=== PATIENT | female | born 2000 | race Caucasian/White ===

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

== ENCOUNTER 2021-05-23 18:54 | Emergency (ER) | payer MEDICAID, SELFPAY ==
[2021-05-23 18:56] VITALS: BP 131/100; PULSE 129; RESP 18; TEMP 38.4; O2SAT 97; BMI 35.9
[2021-05-23 18:59] VITALS: BP 131/100; BP 131/101; PULSE 125; PULSE 129; RESP 18; TEMP 38.4; O2SAT 97
--- NOTE | 2021-05-23 19:23 | EX.ED.DYSGE1 ---
HPI History of Present Illness Chief Complaint: Fever Narrative Narrative: Patient is a 21-year-old female who states she has had about 7 to 10 days of congestion cough and fatigue. She says she is also had bouts of loose stool. She reports a fever has persisted during this time. She states multiple people in her household have similar symptoms. She reports she tested negative for Covid 1 to 2 days after symptoms set in. She states that despite doing [id number] medication she feels like her symptoms are worsening and therefore she presents for evaluation [facility] Medical History no medical history Home Medications acyclovir 400 mg PO TID 06/17/19 [History Last Taken Unknown] benzonatate 100 mg PO TID PRN PRN 06/17/19 [History Last Taken Unknown] bifidobacteri bifid.and longum 460 mg PO DAILY 06/17/19 [History Last Taken Unknown] cefdinir 300 mg PO BID 06/17/19 [History Last Taken Unknown] doxycycline monohydrate 100 mg PO BID #28 cap 06/17/19 [Rx Last Taken Unknown] fluoxetine 20 mg PO DAILY 06/17/19 [History Last Taken Unknown] metronidazole 500 mg PO BID 06/17/19 [History Last Taken Unknown] metronidazole 500 mg PO TID #30 tab 06/17/19 [Rx Last Taken Unknown] albuterol sulfate [Ventolin HFA] 1 - 2 puff INHALATION Q4H PRN PRN #1 device 05/23/21 [Rx Last Taken Unknown] dexamethasone [Decadron] 6 mg PO DAILY #10 tab 05/23/21 [Rx Last Taken Unknown] erythromycin 1 applic LEFT EYE 4X/DAY 5 Days #3.5 g 05/23/21 [Rx Last Taken Unknown] promethazine-codeine 5 ml PO Q6H PRN 7 Days #140 ml 05/23/21 [Rx Last Taken Unknown] Allergy/AdvReac Type Severity Reaction Status Date / Time amoxicillin Allergy Rash Verified 05/23/21 18:56 Penicillins Allergy Rash Verified 05/23/21 18:56 metoclopramide [From Reglan] AdvReac Other Verified 05/23/21 18:56 Social History (Updated 09/09/18 @ 12:26 by Harry GONZALEZ, LISA) Smoking Status: Never smoker [facility] ED Constitutional Constitutional ED: Reports chills and fever(s) ENT ENT ED: Reports rhinorrhea and sore throat Cardiovascular Cardiovascular: Denies chest pain Respiratory/Chest Respiratory/Chest: Reports cough and dyspnea Gastrointestinal Gastrointestinal: Reports diarrhea; Denies abdominal pain, nausea or vomiting Genitourinary Genitourinary ED: Denies dysuria Musculoskeletal Musculoskeletal: Reports myalgias Integumentary Denies rash Neurologic Neurologic: Denies headache(s) Hematologic/Lymphatic Hematologic/Lymphatic: Denies easy bleeding or easy bruising EXAM Physical Exam Const Vital Signs: 05/23/21 18:56 05/23/21 18:59 05/23/21 19:30 Temperature 101.2 F H 101.2 F H Temperature Source Temporal Temporal Pulse Rate 129 H 125 H Respiratory Rate 18 18 Respiratory Pattern Normal Blood Pressure 131/100 H 131/101 H Blood Pressure Mean 110 111 Pulse Ox 97 97 Oxygen Delivery Method Room Air Room Air 05/23/21 22:03 Temperature 99.5 F H Temperature Source Oral Pulse Rate 122 H Respiratory Rate 18 Respiratory Pattern Blood Pressure 118/74 Blood Pressure Mean 88 Pulse Ox 96 Oxygen Delivery Method Room Air Positive well nourished and well developed General Appearance ED: well developed HEENT HEENT Narrative: Nasal mucosa is hyperemic and boggy with enlarged inferior nasal turbinates. There is cobblestoning the posterior pharynx consistent with sinus drainage but no airway edema or compromise Eyes PERRL and EOMs intact bilaterally Neck supple Neck Narrative: Positive anterior cervical lymphadenopathy noted Resp normal respiratory effort and clear to auscultation bilaterally Cardio regular rate and regular rhythm GI non-tender and non-distended GI Narrative: Bowel sounds are hyperactive Palpation: soft Extremity normal to inspection Extremity Narrative: No asymmetric edema no pitting edema negative Homans' sign bilaterally Neuro oriented x3 and CN's II-XII intact bilaterally Sensorium / Orientation: alert Psych mental status grossly normal Skin no rashes or lesions noted MDM MDM MDM Narrative Medical decision making narrative: Patient presented to the ER febrile but otherwise in no acute respiratory distress. Her constellation of symptoms is consistent with Covid's and I feel that her initial negative test was due to being swab too early. Therefore repeat swab was obtained which is positive. Her chest x-ray revealed no infiltrate. On reevaluation she is resting comfortably and not requiring supplemental oxygen is therefore safe for discharge Radiography Diagnostic Testing: Clinical Impression(s) from Imaging Studies Chest X-Ray 05/23/21 20:15 IMPRESSION: Normal x-ray examination of the chest. Electronically Signed: Janes Gruber MD at 20:42 EDT , Service support , Discharge Plan Triage Chief Complaint: Fever ED Provider: Jaylen Duran Dx/Rx/DC Orders Clinical Impression: COVID-19 Instructions: Coronavirus Disease 2019 (COVID-19): Caring for Yourself or Others Prescriptions: New erythromycin 5 mg/gram (0.5 %) ointment 1 applic LEFT EYE 4X/DAY 5 Days Qty: 3.5 RF: 0 dexamethasone [Decadron] 6 mg tablet 6 mg PO DAILY Qty: 10 RF: 0 albuterol sulfate [Ventolin HFA] 90 mcg/actuation HFA aerosol inhaler 1 - 2 puff inhalation Q4H PRN PRN (Reason: Wheezing) Qty: 1 RF: 0 promethazine-codeine 6.25-10 mg/5 mL syrup 5 ml PO Q6H PRN (Reason: cough) 7 Days Qty: 140 RF: 0 No Action fluoxetine 20 MG capsule 20 mg PO DAILY RF: 0 metronidazole 500 MG tablet 500 mg PO BID RF: 0 acyclovir 400 MG tablet 400 mg PO TID RF: 0 benzonatate 100 MG capsule 100 mg PO TID PRN PRN (Reason: Cough) RF: 0 cefdinir 300 MG capsule 300 mg PO BID RF: 0 bifidobacteri bifid.and longum 460 MG capsule 460 mg PO DAILY RF: 0 metronidazole 500 MG tablet 500 mg PO TID Qty: 30 RF: 0 doxycycline monohydrate 100 MG capsule 100 mg PO BID Qty: 28 RF: 0 Primary Care Provider: Care Physician,No Primary Referrals: Mckinley Ng MD [STAFF PHYSICIAN] - 5-7 Days You Larsen MD [STAFF PHYSICIAN] - 3-5 Days if not improving NOT,DEFINED [NON-STAFF] - Disposition Disposition: Home, Self Care
--- NOTE | 2021-05-23 20:15 | RAD_ITS ---
STUDY: X-RAY CHEST REASON FOR EXAM: Female, 21 years old. cough TECHNIQUE: Single AP portable view of the chest. COMPARISON: None. FINDINGS: The lungs are clear and expanded. There is no demonstrated pleural abnormality. Normal size heart. Normal mediastinum and claudette. Normal visualized pulmonary arteries. Normal visualized aortic arch and descending thoracic aorta. Normal visualized thoracic spine. Normal visualized ribs, clavicles, and shoulders. There is no demonstrated abnormality of the visualized soft tissue structures of the upper abdomen. RAD/Chest 1 View (Portable) IMPRESSION: Normal x-ray examination of the chest. Electronically Signed: Janes Gruber MD at 20:42 EDT , Service support ,
[2021-05-23 22:03] VITALS: BP 118/74; PULSE 122; RESP 18; TEMP 37.5; O2SAT 96
[2021-05-23 22:33] VITALS: PULSE 120; RESP 16; O2SAT 97
== END 2021-05-23 22:33 | disposition home or self-care (01) ==
LOC: ED 19:31
PROVIDERS: Emergency Provider Emergency Medicine
DX: U07.1 COVID-19 (principal); Z79.899 Other long term (current) drug therapy
CPT/HCPCS: 71045; 87426; 99282

== ENCOUNTER 2021-09-29 20:44 | Emergency (ER) | payer MEDICAID, SELFPAY ==
[2021-09-29 20:44] VITALS: BP 120/82; PULSE 87; RESP 16; TEMP 36.6; O2SAT 100; BMI 35.9
--- NOTE | 2021-09-29 20:50 | US_ITS ---
STUDY: FIRST TRIMESTER OBSTETRICAL ULTRASOUND REASON FOR EXAM: Female, 21 years old. Abdominal pain with nausea TECHNIQUE: Transvaginal US was obtained to better visualized the ovaries. TECHNICAL QUALITY: Adequate. PRIOR ULTRASOUND: None. FINDINGS: There is visualization of a single gestational sac in a normal intrauterine position. The mean sac diameter (MSD) measures 26 mm, indicating an estimated gestational age (EGA) of 7 weeks, 4 days. The gestational sac shape is within normal limits. There is a visualized yolk sac. The yolk sac measures 4.9 mm. The placenta is non-visualized. Due to early gestation, the placenta is not seen. There is visualization of a live embryo. The crown-rump length (CRL) measures 9 mm, indicating an estimated gestational age (EGA) of 6 weeks, 6 days. There is demonstrated cardiac activity with a heart rate of 144 bpm. The estimated gestation age (EGA) by LMP is 7 weeks, 5 days. The estimated date of delivery (LOC) by LMP is 10.1.22. The estimated gestation age (EGA) by US is 7 weeks, 1 days. The estimated date of delivery (LOC) by US is 10.5.22. The uterus measures 11 x 8.5 cm. There is no demonstrated uterine fibroid. The cervix is closed. The right ovary measures 2.9 x 2 cm. There is no right ovarian cyst. There is no visualized right adnexal mass or complex lesion. The left ovary measures 3.5 x 2.6 cm. 19mm cyst with no follow-up required. There is no visualized left adnexal mass or complex lesion. There is no fluid in the cul de sac. US/Transvaginal w/Preg US IMPRESSION: There is a single live intrauterine with a heart rate of 144 bpm. The estimated gestation age (EGA) by US is 7 weeks, 1 days. The estimated date of delivery (LOC) by US is 10.5.22. Electronically Signed: Avni Santiago MD at 21:53 EST ,
--- NOTE | 2021-09-29 20:56 | EDS_ITS ---
HPI HPI - GI History of Present Illness Chief Complaint: Abd Pain Narrative Narrative: 21-year-old female presenting with abdominal pain. She states initially this is diffuse but then points to the lower abdomen on both sides just above the hips. She states it started at 7 PM. She denies abdominal trauma. Patient states she had three test in August which were positive. She believes her last menstrual period was around [place]. Patient is not have any vaginal bleeding, vaginal discharge, dysuria, hematuria. She denies vomiting but has some mild nausea. She has been able to eat and drink normally. Patient has no diarrhea or constipation. She is not had a fever. She states that currently she is supposed to establish with [facility] but does not have a name. She states that her last her water broke early and she spent most of it in the hospital in [facility]. PFSH PFSH Home Medications acyclovir 400 mg PO TID 06/17/19 [History Last Taken Unknown] benzonatate 100 mg PO TID PRN PRN 06/17/19 [History Last Taken Unknown] bifidobacteri bifid.and longum 460 mg PO DAILY 06/17/19 [History Last Taken Unknown] cefdinir 300 mg PO BID 06/17/19 [History Last Taken Unknown] doxycycline monohydrate 100 mg PO BID #28 cap 06/17/19 [Rx Last Taken Unknown] fluoxetine 20 mg PO DAILY 06/17/19 [History Last Taken Unknown] metronidazole 500 mg PO BID 06/17/19 [History Last Taken Unknown] metronidazole 500 mg PO TID #30 tab 06/17/19 [Rx Last Taken Unknown] albuterol sulfate [Ventolin HFA] 1 - 2 puff INHALATION Q4H PRN PRN #1 device 05/23/21 [Rx Last Taken Unknown] dexamethasone [Decadron] 6 mg PO DAILY #10 tab 05/23/21 [Rx Last Taken Unknown] erythromycin 1 applic LEFT EYE 4X/DAY 5 Days #3.5 g 05/23/21 [Rx Last Taken Unknown] promethazine-codeine 5 ml PO Q6H PRN 7 Days #140 ml 05/23/21 [Rx Last Taken Unknown] promethazine-codeine 5 ml PO Q6H PRN 7 Days #140 ml 05/24/21 [Rx Last Taken Unknown] Allergy/AdvReac Type Severity Reaction Status Date / Time amoxicillin Allergy Rash Verified 09/29/21 20:48 Penicillins Allergy Rash Verified 09/29/21 20:48 metoclopramide [From Reglan] AdvReac Other Verified 09/29/21 20:48 Social History Smoking Status: Never smoker ROS ROS ED Constitutional Constitutional ED: Denies chills or fever(s) ENT ENT ED: Denies rhinorrhea or sore throat Cardiovascular Cardiovascular: Denies chest pain or palpitations Respiratory/Chest Respiratory/Chest: Denies cough or dyspnea Gastrointestinal Gastrointestinal: Reports abdominal pain and nausea; Denies constipation, diarrhea, melena or vomiting Genitourinary Genitourinary ED: Denies dysuria or hematuria Musculoskeletal Musculoskeletal: Denies arthralgias or myalgias Integumentary Denies Abrasions or rash Neurologic Neurologic: Denies headache(s) or weakness Psychiatric Psychiatric: Denies anxiety or depression EXAM Physical Exam Const Vital Signs: 09/29/21 20:44 Temperature 97.9 F Temperature Source Temporal Pulse Rate 87 Respiratory Rate 16 Blood Pressure 120/82 H Blood Pressure Mean 94 Pulse Ox 100 Oxygen Delivery Method Room Air Positive well nourished and obese General Appearance ED: NAD Nutritional Appearance: obese HEENT Reports moist mucous membranes normocephalic and atraumatic Eyes PERRL and EOMs intact bilaterally Resp normal respiratory effort and clear to auscultation bilaterally Cardio regular rate and regular rhythm GI non-distended GI Narrative: Mild tenderness bilaterally at the lower abdomen just above the level of the hips. Abdomen nonperitoneal. Palpation: soft Neuro Sensorium / Orientation: alert, oriented to person, oriented to place and oriented to time Psych mental status grossly normal Skin General Skin Exam: Negative for jaundice MDM MDM MDM Narrative Medical decision making narrative: Patient presenting with positive home test and abdominal pain which she describes as the lower abdomen on both sides. Her abdominal exam is benign. Vital signs are stable and she is afebrile. Patient has not had any vaginal bleeding, urinary complaints, GI complaints. CBC is unremarkable. CMP shows normal liver function, renal function. Potassium is slightly low at 3.2. Urinalysis negative for infection. hCG quant is 54,093. Transvaginal ultrasound shows intrauterine with heart rate at 144 bpm estimated to be 7 weeks 1 day. Patient counseled on all findings I recommended to her that she follow-up with [facility]. She is given the phone number for [facility]. She is counseled only Tylenol for pain. She is discharged home in stable condition. Impression: 1. Pressure menstrual 2. Abdominal pain Lab Data Attestation: I reviewed the patient's lab results. Labs: Laboratory Results - last 24 hr 09/29/21 09/29/21 09/29/21 20:45 21:04 21:04 WBC 10.7 RBC 5.07 Hgb 14.5 Hct 41.4 MCV 81.7 MCH 28.6 MCHC 35.0 RDW Std Deviation 35.8 RDW Coeff of Patricio 12.2 Plt Count 291 MPV 10.8 Immature Gran % (Auto) 0.300 Neut % (Auto) 62.1 Lymph % (Auto) 31.7 Whiteside % (Auto) 5.1 Eos % (Auto) 0.5 Baso % (Auto) 0.3 Absolute Neuts (auto) 6.7 Absolute Lymphs (auto) 3.40 Nucleated RBC % 0 Sodium 136 Potassium 3.2 L Chloride 104 Carbon Dioxide 26.0 Anion Gap 6 BUN 5 L Creatinine 0.65 Estim Creat Clear Calc 103.31 Est GFR (MDRD) Af Amer 148 Est GFR (MDRD) Non-Af 123 BUN/Creatinine Ratio 7.7 L Glucose 89 Calcium 9.0 Total Bilirubin 0.50 AST 12 L ALT 23 Alkaline Phosphatase 56 Total Protein 7.8 Albumin 4.2 Globulin 3.6 Albumin/Globulin Ratio 1.2 Lipase 85 HCG, Quant Urine Color Yellow Urine Clarity Clear Urine pH 5.0 Ur Specific Pollock 1.020 Urine Protein 30 H Urine Glucose (UA) Normal Urine Ketones 15 H Urine Occult Blood Negative Urine Nitrite Negative Urine Bilirubin Negative Urine Urobilinogen Normal Ur Leukocyte Esterase 25 H Urine RBC 0 SEEN Urine WBC 0-5 SEEN Ur Squamous Epith Cells 0-5 SEEN Urine Bacteria RARE Urine Mucus 0 SEEN 09/29/21 21:04 WBC RBC Hgb Hct MCV MCH MCHC RDW Std Deviation RDW Coeff of Patricio Plt Count MPV Immature Gran % (Auto) Neut % (Auto) Lymph % (Auto) Whiteside % (Auto) Eos % (Auto) Baso % (Auto) Absolute Neuts (auto) Absolute Lymphs (auto) Nucleated RBC % Sodium Potassium Chloride Carbon Dioxide Anion Gap BUN Creatinine Estim Creat Clear Calc Est GFR (MDRD) Af Amer Est GFR (MDRD) Non-Af BUN/Creatinine Ratio Glucose Calcium Total Bilirubin AST ALT Alkaline Phosphatase Total Protein Albumin Globulin Albumin/Globulin Ratio Lipase HCG, Quant 50557 H Urine Color Urine Clarity Urine pH Ur Specific Pollock Urine Protein Urine Glucose (UA) Urine Ketones Urine Occult Blood Urine Nitrite Urine Bilirubin Urine Urobilinogen Ur Leukocyte Esterase Urine RBC Urine WBC Ur Squamous Epith Cells Urine Bacteria Urine Mucus Radiography Diagnostic Testing: Clinical Impression(s) from Imaging Studies Obstetrics Ultrasound 09/29/21 20:50 IMPRESSION: There is a single live intrauterine with a heart rate of 144 bpm. The estimated gestation age (EGA) by US is 7 weeks, 1 days. The estimated date of delivery (LOC) by US is 05.17.22. Electronically Signed: Avni Santiago MD at 21:53 EST Reading Location ID and State: [facility] / [place] , Service support , Discharge Plan Triage Chief Complaint: Abd Pain ED Provider: Nahun Mckenna Dx/Rx/DC Orders Instructions: ED Abdominal Pain, Early Prescriptions: No Action fluoxetine 20 MG capsule 20 mg PO DAILY RF: 0 metronidazole 500 MG tablet 500 mg PO BID RF: 0 acyclovir 400 MG tablet 400 mg PO TID RF: 0 benzonatate 100 MG capsule 100 mg PO TID PRN PRN (Reason: Cough) RF: 0 cefdinir 300 MG capsule 300 mg PO BID RF: 0 bifidobacteri bifid.and longum 460 MG capsule 460 mg PO DAILY RF: 0 metronidazole 500 MG tablet 500 mg PO TID Qty: 30 RF: 0 doxycycline monohydrate 100 MG capsule 100 mg PO BID Qty: 28 RF: 0 erythromycin 5 mg/gram (0.5 %) ointment 1 applic LEFT EYE 4X/DAY 5 Days Qty: 3.5 RF: 0 dexamethasone [Decadron] 6 mg tablet 6 mg PO DAILY Qty: 10 RF: 0 albuterol sulfate [Ventolin HFA] 90 mcg/actuation HFA aerosol inhaler 1 - 2 puff inhalation Q4H PRN PRN (Reason: Wheezing) Qty: 1 RF: 0 promethazine-codeine 6.25-10 mg/5 mL syrup 5 ml PO Q6H PRN (Reason: cough) 7 Days Qty: 140 RF: 0 promethazine-codeine 6.25-10 mg/5 mL syrup 5 ml PO Q6H PRN (Reason: cough) 7 Days Qty: 140 RF: 0 Primary Care Provider: Care Physician,No Primary Referrals: Casi Das MD [STAFF PHYSICIAN] - As Needed Care Physician,No Primary [Primary Care Provider] - Disposition Disposition: Home, Self Care
[2021-09-29 20:59] LABS: Mucous, Urine 0 SEEN /hpf (<or=2+); Red Blood Cells-Urine 0 SEEN /hpf (0-5)
[2021-09-29 21:02] LABS: Color, Urine Yellow (Yellow); Glucose, Dipstick Normal (Normal); Ketone-Dipstick 15 mg/dl (Negative); Leukocyte Esterase-Dipstick 25 /ul (Negative); Nitrite-Dipstick Negative (Negative); Occult Blood-Urine Negative /ul (Negative); Protein-Dipstick 30 mg/dl (Negative); Urine Bilirubin Dipstick Negative (Negative); Urine Clarity Clear (Clear); Urine Urobilinogen Normal (Normal)
[2021-09-29 21:14] LABS: Absolute Neutrophil Count 6.7 X10^3/uL (2.0-7.7); Basophil# 0.03 X10^3/uL; Basophil% 0.3 % (0-1); Eosinophil# 0.05 X10^3/uL; Eosinophils% 0.5 % (0-5); Hematocrit 41.4 % (37-47); Hemoglobin 14.5 g/dL (12.0-15.0); Lymphocyte % 31.7 % (19-41); Mean Corpuscular Hgb 28.6 pg (27.0-32.0); Mean Corpuscular Volume 81.7 fL (81-99); Mean Platelet Vol. 10.8 fl (6.2-12.0); Monocyte# 0.55 X10^3/uL; Monocyte% 5.1 % (0-10); NRBC Flagged by Analyzer 0 % (0-5); Neutrophil # 6.68 X10^3/uL (2.7-7.7); Neutrophil % 62.1 % (47-70); Platelet Count 291 K/mm3 (150-450); RBC Distribution Width CV 12.2 % (11.6-14.6); RBC Distribution Width SD 35.8 fl (35.1-43.9); Red Blood Count 5.07 M/mm3 (4.2-5.4); White Blood Count 10.7 K/mm3 (4.4-11.0)
[2021-09-29 21:39] LABS: Bacteria RARE /hpf (None Seen); Squamous Epithelial Cells - UA 0-5 SEEN /hpf (5-10); White Blood Cells 0-5 SEEN /hpf (0-5)
[2021-09-29 21:50] LABS: ALB/GLOB Ratio 1.2 RATIO (0.9-2.4); AST(SGOT) 12 U/L (15-37); Alanine Aminotransfer ALT/SGPT 23 U/L (13-56); Albumin, Serum 4.2 g/dL (3.2-5.0); Alkaline Phosphatase 56 U/L (45-117); Anion Gap 6 (5-15); BUN 5 mg/dL (7-18); BUN/Creat Ratio 7.7 RATIO (10-20); Chloride 104 mmol/L (98-107); Creatinine, Serum 0.65 mg/dL (0.55-1.02); EST Glomerular Filtration Rate 123 mL/min (>60); Est Glom Filt Rate - Afr Amer 148 mL/min (>60); Estimated Creatinine Clearance 103.31 ml/min; Globulin 3.6 g/dL (2.2-4.2); Glucose 89 mg/dL (74-106); Lipase 85 U/L (73-393); Potassium 3.2 mmol/L (3.5-5.1); Protein, Total 7.8 g/dL (6.4-8.2); Sodium Level 136 mmol/L (136-145)
== END 2021-09-29 22:39 | disposition home or self-care (01) ==
PROVIDERS: Emergency Provider Student in an Organized Health Care Education/Training Program; Visit Provider Student in an Organized Health Care Education/Training Program
DX: O99.891 Other specified diseases and conditions complicating pregnancy (principal); R10.32 Left lower quadrant pain; R10.31 Right lower quadrant pain; R11.0 Nausea; Z79.899 Other long term (current) drug therapy; Z3A.01 Less than 8 weeks gestation of pregnancy
CPT/HCPCS: 76817; 80053; 81001; 83690; 84702; 85025; 99283; A4216

== ENCOUNTER 2022-06-08 13:51 | Emergency (ER) | payer MEDICAID, SELFPAY ==
[2022-06-08 13:52] VITALS: BP 115/77; PULSE 150; RESP 14; TEMP 37.6; O2SAT 96; BMI 35.5
--- NOTE | 2022-06-08 14:11 | EDS_ITS ---
HPI History of Present Illness Chief Complaint: General Illness Informant: patient Narrative Narrative: 22-year-old female presenting to the emergency room with a chief complaint of fever. Several members of her household have also developed fever. She notes headache and sore throat with some ear pressure. No vomiting or diarrhea. No rash. Patient denies any photophobia. [facility] PFS Medical History no medical history Home Medications acyclovir 400 mg tablet 400 mg PO TID 06/17/19 [History Last Taken Unknown] benzonatate 100 mg capsule 100 mg PO TID PRN PRN Cough 06/17/19 [History Last Taken Unknown] bifidobacterium bifidum and longum 460 mg (9-1 billion cell) capsule 460 mg PO DAILY 06/17/19 [History Last Taken Unknown] cefdinir 300 mg capsule 300 mg PO BID 06/17/19 [History Last Taken Unknown] doxycycline monohydrate 100 mg capsule 100 mg PO BID #28 caps 06/17/19 [Rx Last Taken Unknown] fluoxetine 20 mg capsule 20 mg PO DAILY 06/17/19 [History Last Taken Unknown] metronidazole 500 mg tablet 500 mg PO BID 06/17/19 [History Last Taken Unknown] metronidazole 500 mg tablet 500 mg PO TID #30 tabs 06/17/19 [Rx Last Taken Unknown] albuterol sulfate 90 mcg/actuation aerosol inhaler (Ventolin HFA) 1 - 2 puff inhalation Q4H PRN PRN Wheezing #1 device 05/23/21 [Rx Last Taken Unknown] dexamethasone 6 mg tablet (Decadron) 6 mg PO DAILY #10 tabs 05/23/21 [Rx Last Taken Unknown] erythromycin 5 mg/gram (0.5 %) eye ointment 1 applic LEFT EYE 4X/DAY 5 days #3.5 grams 05/23/21 [Rx Last Taken Unknown] promethazine 6.25 mg-codeine 10 mg/5 mL syrup 5 ml PO Q6H PRN cough 7 days #140 mL 05/23/21 [Rx Last Taken Unknown] promethazine 6.25 mg-codeine 10 mg/5 mL syrup 5 ml PO Q6H PRN cough 7 days #140 mL 05/24/21 [Rx Last Taken Unknown] Allergy/AdvReac Type Severity Reaction Status Date / Time amoxicillin Allergy Rash Verified 06/08/22 13:52 Penicillins Allergy Rash Verified 06/08/22 13:52 metoclopramide [From Reglan] AdvReac Other Verified 06/08/22 13:52 Social History (Updated 06/08/22 @ 14:[address] Ashu Fields, DO) Smoking Status: Never smoker substance use type: does not use ROS ROS ED Constitutional Constitutional ED: Reports fever(s); Denies chills or weight loss Eyes Eyes: Denies change in vision or diplopia ENT ENT ED: Reports sore throat; Denies ear pain or rhinorrhea Cardiovascular Cardiovascular: Denies chest pain, orthopnea, palpitations or racing heartbeat Respiratory/Chest Respiratory/Chest: Reports cough; Denies dyspnea or orthopnea Gastrointestinal Gastrointestinal: Denies abdominal pain, diarrhea, nausea or vomiting Genitourinary Genitourinary ED: Denies dysuria, hematuria or urinary frequency Musculoskeletal Musculoskeletal: Denies arthralgias or myalgias Integumentary Denies abscess or rash Neurologic Neurologic: Reports headache(s); Denies weakness Psychiatric Psychiatric: Denies anxiety, depression, suicidal ideation or suicidal thoughts Endocrine Endocrinology: Denies polydipsia, polyphagia or polyuria Allergic/Immunologic Allergic/Immunologic ED: Denies mouth swelling, tongue swelling or urticaria EXAM Physical Exam Const Vital Signs: 06/08/22 13:52 06/08/22 14:48 06/08/22 14:49 Temperature 99.7 F H Temperature Source Temporal Pulse Rate 150 H 138 H Respiratory Rate 14 18 Respiratory Effort Normal Respiratory Pattern Normal Blood Pressure 115/77 Blood Pressure Mean 89 Pulse Ox 96 98 Oxygen Delivery Method Room Air Room Air Positive well nourished and well developed General Appearance ED: well developed HEENT Reports normocephalic, head/scalp atraumatic and moist mucous membranes Eyes PERRL and EOMs intact bilaterally Neck no lymphadenopathy, supple and no JVD Resp normal respiratory effort and clear to auscultation bilaterally Cardio regular rate, regular rhythm and no murmurs GI normal to inspection, nondistended, normoactive bowel sounds and non-tender Palpation: soft Back/Spine no CVA tenderness and normal ROM Extremity normal to inspection General Extremety ED: Negative for edema General Extremity: Negative for edema Neuro oriented x3 and CN's II-XII intact bilaterally Sensorium / Orientation: alert Motor Exam: strength 5/5 throughout Psych mental status grossly normal Mood & Affect: Negative for depressed or tearful Skin no rashes or lesions noted and no wounds MDM MDM MDM Narrative Medical decision making narrative: The patient's COVID RSV and influenza are negative. Clinically she appears quite well I think she can be discharged home with supportive care. Patient to return if worsening or concerns Discharge Plan Triage Chief Complaint: General Illness ED Provider: Ashu Fields Dx/Rx/DC Orders Clinical Impression: Acute febrile illness, Acute viral syndrome Instructions: ED Viral Syndrome (Adult) Prescriptions: No Action fluoxetine 20 MG capsule 20 mg PO DAILY metronidazole 500 MG tablet 500 mg PO BID acyclovir 400 MG tablet 400 mg PO TID benzonatate 100 MG capsule 100 mg PO TID PRN PRN (Reason: Cough) cefdinir 300 MG capsule 300 mg PO BID bifidobacteri bifid.and longum 460 MG capsule 460 mg PO DAILY metronidazole 500 MG tablet 500 mg PO TID Qty: 30 0RF doxycycline monohydrate 100 MG capsule 100 mg PO BID Qty: 28 0RF erythromycin 5 mg/gram (0.5 %) ointment 1 applic LEFT EYE 4X/DAY 5 Days Qty: 3.5 0RF dexamethasone [Decadron] 6 mg tablet 6 mg PO DAILY Qty: 10 0RF albuterol sulfate [Ventolin HFA] 90 mcg/actuation HFA aerosol inhaler 1 - 2 puff inhalation Q4H PRN PRN (Reason: Wheezing) Qty: 1 0RF promethazine-codeine 6.25-10 mg/5 mL syrup 5 ml PO Q6H PRN (Reason: cough) 7 Days Qty: 140 0RF promethazine-codeine 6.25-10 mg/5 mL syrup 5 ml PO Q6H PRN (Reason: cough) 7 Days Qty: 140 0RF Primary Care Provider: Care Physician,No Primary Referrals: Sheyla Fairchild MD [Med Staff - Medical Office Receptionist] - As Needed (for primary care) Care Physician,No Primary [Primary Care Provider] - Disposition Disposition: Home, Self Care
[2022-06-08] MEDS: Ibuprofen 400 MG Tablet 800 MG PO (14:46)
[2022-06-08 14:48] VITALS: PULSE 138; RESP 18; O2SAT 98
[2022-06-08 16:11] VITALS: BP 100/71; PULSE 116; RESP 18; O2SAT 98
[2022-06-08 16:15] VITALS: TEMP 37.7
== END 2022-06-08 16:17 | disposition home or self-care (01) ==
PROVIDERS: Emergency Provider Emergency Medicine; Visit Provider Emergency Medicine
DX: B34.9 Viral infection, unspecified (principal); Z20.822 Contact with and (suspected) exposure to COVID-19; R50.9 Fever, unspecified; J02.9 Acute pharyngitis, unspecified; R05.9 Cough, unspecified; R51.9 Headache, unspecified; Z79.899 Other long term (current) drug therapy
CPT/HCPCS: 87428; 87807; 99283

== ENCOUNTER 2022-08-03 10:43 | Day surgery (SDC) | payer MEDICAID, SELFPAY ==
--- NOTE | 2022-08-02 11:51 | PCM.HP.BLA ---
History and Physical Date of Admission: 08/03/22 Pre-Op History and Physical ? HPI: The patient is a 22 year old female presenting for sterilization consultation. Has three children does not desire further children. Declines LARC. ? pre-operative visit. She is scheduled for laparoscopic bilateral salpingectomy, for desires sterilization on 08/03/22. Procedure discussed along with risks, benefits and complications. Other alternatives discussed for management. Consent form signed? Yes. ? ? PAST MEDICAL HISTORY PAST MEDICAL HISTORY Diagnosis Date ? 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 H/O sickle cell trait ? ? father has trait ? Herpes simplex virus (HSV) infection 2019 ? none current per patient ? History of anxiety ? ? History of depression ? ? ? PAST SURGICAL HISTORY PAST SURGICAL HISTORY Procedure Laterality Date ? REMOVAL GALLBLADDER ? 12/20/2016 ? ? ? CURRENT MEDICATIONS Current Outpatient Medications Medication Sig Dispense Refill ? acetaminophen (TYLENOL) 325 mg tablet Take 2 tablets by mouth every 6 hours as needed for pain. 60 tablet 0 ? docusate sodium (COLACE) 100 mg capsule Take 1 capsule by mouth twice daily as needed for constipation. 30 capsule 0 ? ibuprofen (MOTRIN) 600 mg tablet Take 1 tablet by mouth every 6 hours as needed for pain. 60 tablet 0 ? Breast Pump Use as directed 1 Each 0 ? PNV no.95/ferrous fum/folic ac ( ORAL) Take by mouth. ? ? ? No current facility-administered medications for this visit. ? ? ALLERGIES: Vancomycin, Amoxicillin, and Metoclopramide ? PERSONAL HISTORY: SOCIAL HISTORY Social History ? Tobacco Use ? Smoking status: Never ? Smokeless tobacco: Never Vaping Use ? Vaping Use: Never used Substance Use Topics ? Alcohol use: No ? Drug use: No ? FAMILY HISTORY: FAMILY HISTORY FAMILY HISTORY Problem Relation Age of Onset ? Alcohol/Drug Mother ? ? other (Mental disorder unspecific) Mother ? ? other (ADHD) Sister ? ? other (ADHD) Brother ? ? ? REVIEW OF SYMPTOMS: negative except as noted above PHYSICAL EXAMINATION: ? VITALS: Blood pressure 118/72, weight 196 lb (88.9 kg), not currently . ? GENERAL: The patient is well nourished, well hydrated in no acute distress. , The patient is oriented to time, place, and person. NECK: full range of motion ? ? IMPRESSION: 22yo desires sterilization ? PLAN: Laparoscopic bilateral salpingectomy ? Pt has been counseled on risks/benefits and alternatives of surgery including but not limited to anesthesia, bleeding, infection, injury to pelvic structures including bowel, bladder, ureters and vessels. Pt wishes to proceed with surgery at this time. Pt understands this is permanent- declines LARC. Risk of regret reviewed. Title 19 previously signed. Pre and post op instructions reviewed ? I have reviewed and updated past medical and surgical history, medications and allergies Casi Navarro MD Office Visit on 07/19/2022 Office Visit on 07/19/2022 Note shared with patient
[2022-08-03] VITALS (7 sets, daily range): BP systolic 89–106; BP diastolic 52–71; PULSE 55–72; RESP 16; TEMP 36.1–36.8; O2SAT 95–100; BMI 36.6
--- NOTE | 2022-08-03 | FALS_PTH ---
PATIENT: RAYMOND WOO LOC: [facility] [place] U#:[id number] AGE/SX: 22/ ROOM: RE08/03/[address]: Dr. Casi Das, MDDOB: 2000 BED: DIS: 08/03/2022 SPEC #: [id number] RECD: 08/03/22 13:55 STATUS: CALDERON HECTOR #: [id number] GARRET: 08/03/22 00:[address]: Casi Das DEPT: SURGICAL PATHOLOGY RECD BY: Kenny Renteria ENTERED: 08/03/22 13:56 SP TYPE: FALL TUBES OTHR DR: No Primary Care Phys Tissues: Fallopian tube Procedures: Surgery Specimen Level II HEADER OPERATION: Laparoscopic salpingectomy PRE-OP DIAGNOSIS: Sterilization TISSUE SUBMITTED: Bilateral fallopian tubes MICROSCOPIC DIAGNOSIS Bilateral fallopian tubes, salpingectomy: Bilateral fallopian tubes, no pathologic diagnosis. SJ:shasta 08/04/2022 MICROSCOPIC DESCRIPTION Slides are reviewed. GROSS DESCRIPTION Received in fixative is one container labeled with the patient's name and designated bilateral fallopian tubes. The specimen consists of bilateral fallopian tubes including fimbrial ends. One fallopian tube measures 6.5 cm in length and 0.7 cm in diameter. The second fallopian tube is received in multiple pieces. The largest piece measures 4.5 cm in length and 0.5 cm in diameter. The other three pieces which contain the fimbrial end measures in aggregate 3 x 2 x 0.5 cm. The fallopian tubes are not identified as right or left. Flavorer sections are submitted in two cassettes as follows: 1 - intact fallopian tube, 2 - fallopian tube received in multiple pieces. / JANICE:shasta 08/03/2022 TC:4 [facility]: [id number] x2
[2022-08-03] MEDS: Lactated Ringers 1,000 ML 15 ML IV (11:19)
[2022-08-03 11:26] LABS: Hematocrit 37.3 % (37-47); Hemoglobin 12.7 g/dL (12.0-15.0); Mean Corpuscular Hgb 28.2 pg (27.0-32.0); Mean Corpuscular Volume 82.7 fL (81-99); Mean Platelet Vol. 11.1 fl (6.2-12.0); Platelet Count 262 K/mm3 (150-450); RBC Distribution Width SD 45.7 fl (35.1-43.9); Red Blood Count 4.51 M/mm3 (4.2-5.4); White Blood Count 6.6 K/mm3 (4.4-11.0)
[2022-08-03 11:30] LABS: Internal QC Validated? YES +Cl - CLEAR BKGD; Pregnancy, Urine Negative Negative
--- NOTE | 2022-08-03 11:36 | DCINST_ITS ---
Discharge Instructions Procedure Other Diet Discharge Diet: No restrictions Activity May resume sexual activity in: 2 weeks Lifting Restrictions: 20-25 lbs Dressing / Incision Call your doctor if your incision/area has: Continuous Slow Oozing, Sudden Increased Bleeding, Increased Pain/ Swelling, Increased Redness, Foul Smelling Discharge and Swelling at the incision site Call your doctor if you observe: Fever of 101 or Higher, Inability to urinate, Inability to have a bowel movement, Using more than 1 pad per hour and Uncontrolled pain Additional Dressing/Incision Instructions:: You have skin glue over your incision sites, do not pick off. You may shower and let the soap and water run over the incision sites and dab dry. Follow Up Care Please Follow Up With: Casi Das MD When: 1-2 weeks post OP if you need an appointment please call [phone] Test Results: Test results from this visit will be discussed in further detail at your follow- up appointment, if applicable. Discharge Plan Admission Attending Provider: Casi Das Primary Care Provider: Care Physician,Meliza Primary Discharge Orders/Prescriptions Prescriptions: No Action NK Referrals / Follow Up: Care Physician,No Primary [Primary Care Provider] - Disposition Disposition (needs filled in before D/C Order can be placed): Home, Self Care
--- NOTE | 2022-08-03 11:37 | PCM.OPRPT ---
Report of Operation Date of Procedure: 08/03/22 Pre-Operative Diagnosis: desires sterilization Post-Operative Diagnosis: same Surgery/Procedure Performed:: Laparoscopic bilateral salpingectomy Description of Surgical Findings:: normal tubes and ovaries bilaterally. Uterus normal. Surgeon: Casi Das slubber machine operator: None Type of Anesthesia: General and Local Special Medications: 0.5% marcaine Specimen's removed: bilateral fallopian tubes Drains: none Estimated Blood Loss (mL): <5cc Fluids Replaced: 300 Description of Procedure: After informed consent was obtained patient was taken to the operating room she was placed in supine position she was given anesthesia. She was then placed in the [facility] stirru and she was prepped and draped in normal sterile fashion. Bladder was drained prior to the start of procedure. At this time attention was turned to the vaginal portion where weighted speculum placed at posterior fornix vagina single-tooth tenaculum was used to gently grasp the internal the cervix. uterus was gently sounded to approximately 8 cm. Uterine manipulator was placed without difficulty. Legs then placed in parallel with the abdomen the tenaculum and the weighted speculum were removed. 2 towel clamps were placed at level of umbilicus. Marcaine was injected infraumbilical and a small incision was made. The 5 mm trocar was placed under direct visualization. CO2 gas was used to insufflate the intra-abdominal cavity. Upon inspection no gross abnormalities appreciated- the uterus tubes and ovaries appeared to be normal. At this time then the LLQ and RLQ ports were placed First Marcaine was injected and small incision was made a knife and the 5 mm trocars were placed. At this time then tubes were traced back to the fimbriated ends. Enseal was used to coagulate and ligate along mesosalpinx bilaterally until tubes removed completely. Good hemostasis was appreciated. At this time procedure was deemed complete successful. The gas was desufflated on from the intra-abdominal cavity. The trochars were removed. Skin was closed using 4-0 Monocryl in a subcutaneous fashion. Dermabond glue was placed. Instrument lap and needle counts were correct ?2. The uterine manipulator was removed. Vaginal sweep was performed it was negative. There were no complications anticipated normal postoperative course for this patient. Grafts/Implants Used: none Procedure Start Time: 11:55 Procedure Stop Time: 12:11 Complications none Admit VTE Documentation VTE Present on Admission: Yes VTE Mechan Device Prophylaxis: SCD's VTE Pharm Prophylaxis ordered?: No Reason prophylaxis not ordered:: Procedure Not Indicated
[2022-08-03] MEDS: Bupivacaine Mpf 0.5% 30 ML VIAL (12:00)
[2022-08-03] MEDS: HYDROcodone Bitartrate/Apap 5/325 Tablet PO (13:21)
== END 2022-08-03 14:45 | disposition home or self-care (01) ==
LOC: SDC 10:45 → AC 10:45
PROVIDERS: Anesthesiology; Referring Provider Obstetrics & Gynecology; Visit Provider Obstetrics & Gynecology
PROC: (CPT 58661; principal; 2022-08-03 12:15)
DX: Z30.2 Encounter for sterilization (principal)
CPT/HCPCS: 58661; 00840; 81025; 85027; 88302; J7120; C1760; J2405

== ENCOUNTER 2022-10-01 16:27 | Emergency (ER) | payer MEDICAID, SELFPAY ==
[2022-10-01 16:28] VITALS: BP 136/76; PULSE 97; RESP 16; TEMP 36.1; O2SAT 100; BMI 37.8
[2022-10-01 16:42] VITALS: BP 106/73; BP 110/67; BP 117/72; PULSE 92
--- NOTE | 2022-10-01 16:58 | EX.ED.DYSGE1 ---
HPI History of Present Illness Chief Complaint: Syncope Informant: patient Onset/Context/Timing Onset: Today Context: Sudden Onset Timing: Intermittent Quality: Lightheaded Location: Head Worsened by: Sitting and standing quickly Relieved by: Resting Narrative Narrative: Presents with near syncopal episode that occurred today. Patient states she felt lightheaded. Patient states she felt like she was going to pass out. Patient states she blacked out for couple seconds but did not actually lose consciousness. Patient states the symptoms have been intermittent and only last few minutes. Patient states it is worse when she sits and stands too quickly. Patient states it is better when she rests. Patient admits to some paresthesias of her lower extremities where she feels tingling down both lower extremities. Patient denies any weakness. Patient denies any headaches. PFSH PFSH Medical History Non-smoker Home Medications NK 07/27/22 [History Last Taken Unknown] Allergy/AdvReac Type Severity Reaction Status Date / Time amoxicillin Allergy Rash Verified 10/01/22 16:41 Penicillins Allergy Rash Verified 10/01/22 16:41 vancomycin Allergy Rash Verified 10/01/22 16:41 metoclopramide [From Reglan] AdvReac Other Verified 10/01/22 16:41 Surgical History History of laparoscopic cholecystectomy Social History Smoking Status: Never smoker substance use type: does not use ROS ROS ED Constitutional Constitutional ED: Denies chills or fever(s) Eyes Eyes: Denies blurry vision or change in vision ENT ENT ED: Denies rhinorrhea or sore throat Cardiovascular Cardiovascular: Denies chest pain or palpitations Respiratory/Chest Respiratory/Chest: Denies cough or dyspnea Gastrointestinal Gastrointestinal: Denies nausea or vomiting Genitourinary Genitourinary ED: Denies dysuria or hematuria Musculoskeletal Musculoskeletal: Denies back pain or neck pain Integumentary Denies abscess or rash Neurologic Neurologic: Reports headache(s) and paresthesias RLE and LLE; Denies weakness Allergic/Immunologic Allergic/Immunologic ED: Denies mouth swelling or urticaria EXAM Physical Exam Const Vital Signs: 10/01/22 16:28 10/01/22 16:42 Temperature 97.0 F L Temperature Source Temporal Pulse Rate 97 Pulse Rate [Lying] 92 Pulse Rate [Sitting (for 1 minute prior to obtaining)] 92 Respiratory Rate 16 Blood Pressure 136/76 H Blood Pressure [Lying] 110/67 Blood Pressure [Sitting (for 1 minute prior to obtaining)] 117/72 Blood Pressure [Standing (for 1 minute prior to obtaining)] 106/73 Blood Pressure Mean 96 Blood Pressure Mean [Lying] 81 Blood Pressure Mean [Sitting (for 1 minute prior to obtaining)] 87 Blood Pressure Mean [Standing (for 1 minute prior to obtaining)] 84 Pulse Ox 100 Oxygen Delivery Method Room Air Positive well nourished and well developed General Appearance ED: well developed HEENT Reports moist mucous membranes Neck supple and no JVD Resp normal respiratory effort and clear to auscultation bilaterally Cardio regular rate, regular rhythm and no murmurs GI normal to inspection, nondistended, normoactive bowel sounds and non-tender Palpation: soft Extremity normal to inspection General Extremety ED: Negative for edema or tenderness General Extremity: Negative for edema Neuro oriented x3, CN's II-XII intact bilaterally and no sensory deficits noted Sensorium / Orientation: alert Motor Exam: strength 5/5 throughout Psych mental status grossly normal Skin no rashes or lesions noted MDM MDM MDM Narrative Medical decision making narrative: Differential diagnosis includes cardiac dysrhythmia, cardiac ischemia, ectopic , urinary tract infection, pneumonia, and intracranial bleeding. CT scan of the brain will be obtained to assess for intracranial bleeding. Urinalysis will be obtained to assess for urinary tract infection. EKG will be obtained to assess for cardiac ischemia and cardiac dysrhythmia. CBC will be obtained to assess for anemia and leukocytosis. Basic metabolic profile will be obtained to assess for electrolyte abnormality and renal function. Serum hCG will be obtained to assess for . Lab Data Attestation: I reviewed the patient's lab results. Lab results narrative: CBC was reviewed and was within normal limits. Basic metabolic profile was reviewed and was within normal limits. Serum hCG was reviewed and was negative. Urinalysis was reviewed. There is no evidence of urinary tract infection or hematuria. COVID-19 rapid antigen was reviewed and was negative. Influenza A and influenza B antigens were reviewed and were negative. Labs: Laboratory Results - last 24 hr 10/01/22 10/01/22 10/01/22 17:13 17:13 17:13 WBC 9.6 RBC 4.58 Hgb 12.7 Hct 39.4 MCV 86.0 MCH 27.7 MCHC 32.2 RDW Std Deviation 39.8 RDW Coeff of Patricio 12.8 Plt Count 260 MPV 10.8 Immature Gran % (Auto) 0.400 Neut % (Auto) 65.6 Lymph % (Auto) 24.1 [place] % (Auto) 8.2 Eos % (Auto) 1.3 Baso % (Auto) 0.4 Absolute Neuts (auto) 6.3 Absolute Lymphs (auto) 2.31 Nucleated RBC % 0 Sodium 140 Potassium 3.5 Chloride 108 H Carbon Dioxide 25.0 Anion Gap 7 BUN 15 Creatinine 0.70 Estim Creat Clear Calc 95.13 Est GFR (MDRD) Af Amer 133 Est GFR (MDRD) Non-Af 110 BUN/Creatinine Ratio 21.3 H Glucose 74 Calcium 8.6 Serum , Qual NEGATIVE Urine Color Urine Clarity Urine pH Ur Specific [place] Urine Protein Urine Glucose (UA) Urine Ketones Urine Occult Blood Urine Nitrite Urine Bilirubin Urine Urobilinogen Ur Leukocyte Esterase Urine RBC Urine WBC Ur Squamous Epith Cells Urine Bacteria Urine Mucus 10/01/22 19:00 WBC RBC Hgb Hct MCV MCH MCHC RDW Std Deviation RDW Coeff of Patricio Plt Count MPV Immature Gran % (Auto) Neut % (Auto) Lymph % (Auto) [place] % (Auto) Eos % (Auto) Baso % (Auto) Absolute Neuts (auto) Absolute Lymphs (auto) Nucleated RBC % Sodium Potassium Chloride Carbon Dioxide Anion Gap BUN Creatinine Estim Creat Clear Calc Est GFR (MDRD) Af Amer Est GFR (MDRD) Non-Af BUN/Creatinine Ratio Glucose Calcium Serum , Qual Urine Color Straw Urine Clarity Sl. Cloudy Urine pH 6.5 Ur Specific [place] 1.015 Urine Protein Negative Urine Glucose (UA) Normal Urine Ketones Negative Urine Occult Blood Negative Urine Nitrite Negative Urine Bilirubin Negative Urine Urobilinogen Normal Ur Leukocyte Esterase 25 H Urine RBC 0-5 SEEN Urine WBC 0-5 SEEN Ur Squamous Epith Cells 5-10 SEEN Urine Bacteria RARE Urine Mucus RARE Radiography Diagnostic Testing: Clinical Impression(s) from Imaging Studies Brain CT 10/01/22 17:05 IMPRESSION: Negative head/brain CT without intravenous contrast. Electronically Signed: Darci Mccoy MD at 18:06 EST , CT scan of the brain was obtained. There is no acute intracranial abnormality. This was interpreted by the radiologist and was also independently reviewed by myself. EKG Initial EKG: Attestation: I personally reviewed and interpreted this EKG as follows: Interpretation: Sinus Rhythm (86) and No Acute Injury Pattern Comments: EKG was obtained. On my independent interpretation, it showed a normal sinus rhythm with a rate of 86. SD interval, QRS interval, and QTc intervals were all normal. [place] was normal. There are no acute ST or T wave changes. Prior EKG tracings: not available for review Prior: No Prior Treatment and Re-Evaluation Narrative: Orthostatic vital signs were obtained and were negative. Patient was given IV fluids. Patient is feeling better on reevaluation. Patient was advised of her findings. Patient was instructed to follow-up with her primary care physician in 5 to 7 days for further evaluation. Patient understood and was agreeable with the plan. All questions were answered. Discharge Plan Triage Chief Complaint: Syncope ED Provider: Byron Rico Dx/Rx/DC Orders Clinical Impression: Near syncope, Obesity (BMI 30-39.9) Instructions: ED Near-Fainting, Uncertain Cause Prescriptions: No Action NK Primary Care Provider: Care Physician,No Primary Referrals: Byron Arambula MD [Med Staff - [employer]] - 5-7 Days Care Physician,No Primary [Primary Care Provider] - Disposition Disposition: Home, Self Care
--- NOTE | 2022-10-01 17:05 | CT_ITS ---
EXAM: CT HEAD WITHOUT INTRAVENOUS CONTRAST CLINICAL INDICATION: Syncope TECHNIQUE: Multiple axial images were obtained of the head without intravenous contrast. This CT exam was performed using one or more of the following dose reduction techniques: automated exposure control, adjustment of the mA and/or kV according to patient size, and/or use of iterative reconstruction technique. This report was created using [employer] report generation technology. RADIATION DOSE: CTDIvol = 44.99 mGy, DLP = 779.24 mGy-cm. COMPARISON: 05/27/2014. FINDINGS: BRAIN AND EXTRA-AXIAL SPACES: Unremarkable. No intra- or extra-axial hemorrhage. No evidence of acute infarct. No intracranial mass or mass effect. There is preservation of the loomis/white matter interface. Posterior fossa structures are unremarkable. Ventricles are appropriate for age. No hydrocephalus. Basal cisterns are patent. BONES/JOINTS: Unremarkable. No discrete lytic or blastic abnormalities. SINUSES: Unremarkable as visualized. Clear. MASTOID AIR CELLS: Unremarkable. Clear. ORBITS: Visualized globes, extraocular muscles, optic nerves and retrobulbar fat appear unremarkable. CT/Brain/Head without Contrast IMPRESSION: Negative head/brain CT without intravenous contrast. Electronically Signed: Darci Mccoy MD at 18:06 [facility] ,
--- NOTE | 2022-10-01 17:07 | EKG12_ITS ---
Test Reason : SYNCOPE Blood Pressure : / mmHG Vent. Rate : 086 BPM Atrial Rate : 086 BPM P-R Int : 164 ms QRS Dur : 088 ms QT Int : 340 ms P-R-T Axes : 032 003 014 degrees QTc Int : 406 ms Normal sinus rhythm Normal ECG Confirmed by JOHN DAWSON, CAIN ([id number]), news videotape editor LC HUYNH ([id number]) on 10/02/2022 1:40:35 PM Referred By: Confirmed By:CAIN LOPEZ MD
[2022-10-01] MEDS: 0.9% Normal Saline 1,000 ML 1000 ML IV (17:16)
[2022-10-01 17:20] LABS: Absolute Lymphocyte Count 2.31 X10^3/uL (0.83-4.51); Absolute Neutrophil Count 6.3 X10^3/uL (2.0-7.7); Basophil# 0.04 X10^3/uL; Basophil% 0.4 % (0-1); Eosinophil# 0.12 X10^3/uL; Eosinophils% 1.3 % (0-5); Hematocrit 39.4 % (37-47); Hemoglobin 12.7 g/dL (12.0-15.0); Lymphocyte # 2.31 X10^3/ul (0.83-4.51); Lymphocyte % 24.1 % (19-41); Mean Corp Hgb Conc 32.2 g/dL (32-36); Mean Corpuscular Hgb 27.7 pg (27.0-32.0); Mean Platelet Vol. 10.8 fl (6.2-12.0); Monocyte# 0.79 X10^3/uL; Monocyte% 8.2 % (0-10); NRBC Flagged by Analyzer 0 % (0-5); Neutrophil # 6.29 X10^3/uL (2.7-7.7); Neutrophil % 65.6 % (47-70); Platelet Count 260 K/mm3 (150-450); RBC Distribution Width CV 12.8 % (11.6-14.6); RBC Distribution Width SD 39.8 fl (35.1-43.9); Red Blood Count 4.58 M/mm3 (4.2-5.4); White Blood Count 9.6 K/mm3 (4.4-11.0)
[2022-10-01 17:34] LABS: Anion Gap 7 (5-15); BUN 15 mg/dL (7-18); BUN/Creat Ratio 21.3 RATIO (10-20); Calcium,Total 8.6 mg/dL (8.5-10.1); Chloride 108 mmol/L (98-107); EST Glomerular Filtration Rate 110 mL/min (>60); Est Glom Filt Rate - Afr Amer 133 mL/min (>60); Estimated Creatinine Clearance 95.13 ml/min; Glucose 74 mg/dL (74-106); Potassium 3.5 mmol/L (3.5-5.1); Sodium Level 140 mmol/L (136-145)
[2022-10-01 17:39] LABS: Internal QC Validated? YES +Cl - CLEAR BKGD
[2022-10-01 17:41] LABS: Pregnancy, Serum, hCG Quali. NEGATIVE Negative
[2022-10-01 18:28] VITALS: RESP 14
[2022-10-01 19:09] LABS: Color, Urine Straw (Yellow); Glucose, Dipstick Normal (Normal); Ketone-Dipstick Negative (Negative); Leukocyte Esterase-Dipstick 25 /ul (Negative); Nitrite-Dipstick Negative (Negative); Occult Blood-Urine Negative /ul (Negative); Protein-Dipstick Negative (Negative); Specific Gravity, Urine 1.015 (1.002-1.030); Urine Bilirubin Dipstick Negative (Negative); Urine Clarity Sl. Cloudy (Clear); Urine Urobilinogen Normal (Normal); Urine pH 6.5 (5.0 - 8.0)
[2022-10-01 19:17] LABS: Bacteria RARE /hpf (None Seen); Mucous, Urine RARE /hpf (<or=2+); Red Blood Cells-Urine 0-5 SEEN /hpf (0-5); Squamous Epithelial Cells - UA 5-10 SEEN /hpf (5-10); White Blood Cells 0-5 SEEN /hpf (0-5)
[2022-10-01 19:49] VITALS: RESP 14
== END 2022-10-01 20:00 | disposition home or self-care (01) ==
PROVIDERS: Emergency Provider Emergency Medicine; Visit Provider Emergency Medicine
DX: R55 Syncope and collapse (principal); E66.9 Obesity, unspecified; Z20.822 Contact with and (suspected) exposure to COVID-19
CPT/HCPCS: 70450; 80048; 81001; 84703; 85025; 87428; 93005; 96360; 99285; J7030; A4216

== ENCOUNTER 2023-05-12 22:08 | Emergency (ER) | payer MEDICAID, SELFPAY ==
[2023-05-12 22:09] VITALS: BP 141/93; PULSE 100; RESP 18; TEMP 37.1; O2SAT 98; BMI 46.3
--- NOTE | 2023-05-12 22:42 | EX.ED.VIS.UR ---
HPI HPI - URI History of Present Illness Chief Complaint: Cough Detail of Chief Complaint: [place] tract infectious symptoms Informant: patient Onset/Context/Timing Onset: Yesterday Context: Sudden Onset Timing: Continuous and Waxes and wanes Quality: Upper respiratory tract infectious symptoms and diarrhea Location: Upper respiratory and GI Current Severity: Mild Maximum Severity: Moderate Worsened by: Not Worsened By Swallowing, Eating Solids or Drinking Liquids Relieved by: Not Relieved By Tylenol or NSAIDs Associated Symptoms Associated Symptoms: Positive for Nasal Congestion, Myalgias, Diarrhea and Nonproductive cough; Negative for Headache, Sinus Pressure, Nausea, Vomiting, Shortness of Breath or Chest Pain Narrative Narrative: Patient is a 23-year-old non-smoker who presents with upper respiratory tract symptoms that started yesterday and diarrhea. She states multiple coworkers are ill with viral type illness. She denies subjective or objective fever. She denies night sweats. She does report myalgias and arthralgias. She does endorse rhinorrhea, congestion, sore throat. Her cough is nonproductive. She denies abdominal pain. She denies nausea or vomiting. She does endorse diarrhea. She denies urologic symptoms. Prior similar symptoms: No Recent Illness/Hospitalization: No ROS ROS ED Constitutional Constitutional ED: Denies chills, fever(s), subjective or sweats Eyes Eyes: Denies blurry vision, change in vision or diplopia ENT ENT ED: Reports rhinorrhea and sore throat; Denies ear pain Cardiovascular Cardiovascular: Denies chest pain, orthopnea, palpitations or paroxysmal nocturnal dyspnea Respiratory/Chest Respiratory/Chest: Reports cough and other Details: Does admit to wheezing. She does not have history of asthma. ; Denies dyspnea, dyspnea on exertion, orthopnea, paroxysmal nocturnal dyspnea or sputum Gastrointestinal Gastrointestinal: Reports diarrhea; Denies abdominal pain, nausea or vomiting Genitourinary Genitourinary ED: Denies dysuria, hematuria or urinary frequency Musculoskeletal Musculoskeletal: Reports arthralgias and myalgias Integumentary Denies rash Neurologic Neurologic: Denies headache(s) or paresthesias Hematologic/Lymphatic Hematologic/Lymphatic: Denies easy bleeding or easy bruising PFSH PFSH Medical History Non-smoker Home Medications NK 07/27/22 [History Last Taken Unknown] Allergy/AdvReac Type Severity Reaction Status Date / Time amoxicillin Allergy Rash Verified 05/12/23 22:11 Penicillins Allergy Rash Verified 05/12/23 22:11 vancomycin Allergy Rash Verified 05/12/23 22:11 metoclopramide [From Reglan] AdvReac Other Verified 05/12/23 22:11 Surgical History History of laparoscopic cholecystectomy Social History Smoking Status: Never smoker substance use type: does not use EXAM Physical Exam Const Vital Signs: 05/12/23 22:09 05/12/23 22:14 Temperature 98.8 F Temperature Source Temporal Pulse Rate 100 Respiratory Rate 18 Respiratory Effort Short of Breath Respiratory Depth Normal Respiratory Pattern Normal Blood Pressure 141/93 H Blood Pressure Mean 109 Pulse Ox 98 Oxygen Delivery Method Room Air Room Air Positive well nourished, well developed and obese General Appearance ED: well developed and NAD; Negative for cyanotic, diaphoretic or pallor Nutritional Appearance: obese HEENT Reports moist mucous membranes normocephalic and atraumatic Face and Sinus: Negative for sinus tenderness or facial tenderness Throat: posterior oropharynx normal Eyes PERRL and EOMs intact bilaterally General Eye ED: Negative for pale conjunctiva or scleral icterus Neck no lymphadenopathy, supple, no meningeal signs and no JVD Resp normal respiratory effort and No clear to auscultation bilaterally Auscultation: wheezes expiratory wheezes, scattered wheezes and throughout Cardio S1 normal heart sound, S2 normal heart sound and no murmurs Rate: regular rate Rhythm: regular rhythm GI non-tender, non-distended and no masses Auscultation: normoactive bowel sounds Palpation: soft Extremity normal to inspection and full ROM General Extremety ED: Negative for cyanosis General Extremity: Negative for cyanosis Neuro oriented x3, CN's II-XII intact bilaterally and no sensory deficits noted Sensorium / Orientation: alert Psych mental status grossly normal Skin General Skin Exam: Negative for jaundice or pallor Lesions: no lesions Rashes: no rashes MDM MDM MDM Narrative Medical decision making narrative: Physical consistent with acute bronchitis with wheezing. She also has diarrhea. Her symptoms consistent with a systemic viral illness. She was treated symptomatically. Since she has not used inhaler in many years respiratory we will show her how to use inhaler and she will be discharged with the inhaler that she uses in the emergency department for her wheezing. Since she is not febrile, tachypneic or hypoxic and there are no rales or egophony imaging was not obtained. Patient's blood pressure is elevated. She does not have history of hypertension. We will have this reassessed by her doctor in 2 weeks. History & Record Review Additional record(s) reviewed:: Prior outpatient record (ER visits for viral type symptoms and eye injury.), Prior ED visit and Prior labs Discharge Plan Triage Chief Complaint: Cough ED Provider: Robert Delatorre Dx/Rx/DC Orders Clinical Impression: Acute bronchitis with wheezing, Systemic viral illness, Diarrhea, Elevated blood pressure reading Instructions: ED Bronchitis with Wheezing (Adult), ED Hypertension, To Be Confirmed Prescriptions: No Action NK Primary Care Provider: Care Physician,No Primary Referrals: Care Physician,No Primary [Primary Care Provider] - Doctor,Your [Non-Staff] - 1 Week if not improving Activity Restrictions/Additional Instructions: 1. 2 puffs of inhaler every 2-4 hours while awake for the next 2 days then every 4-6 hours as needed 2. You may feel ill for another 7 to 10 days 3. You may take either Tylenol every 6 hours or 4 ibuprofen tablets every 8 hours for muscle aches and fever. Patient Disposition Disposition: Home, Self Care
[2023-05-12] MEDS: Albuterol Sulfate 8 gm Inhaler (60 puffs) 6 PUFF INHALATION (23:03)
== END 2023-05-12 23:08 | disposition home or self-care (01) ==
PROVIDERS: Emergency Provider Emergency Medicine; Visit Provider Emergency Medicine
DX: J20.9 Acute bronchitis, unspecified (principal); B34.9 Viral infection, unspecified; R19.7 Diarrhea, unspecified; R03.0 Elevated blood-pressure reading, without diagnosis of hypertension; E66.9 Obesity, unspecified
CPT/HCPCS: 99281; 99282

== ENCOUNTER 2023-08-26 16:24 | Emergency (ER) | payer MEDICAID, SELFPAY ==
[2023-08-26 16:25] VITALS: BP 138/92; PULSE 81; RESP 16; TEMP 36; O2SAT 99; BMI 37.8
--- NOTE | 2023-08-26 16:32 | EX.ED.DYSGE1 ---
HPI <LISA Mendoza - Last Filed: 08/26/23 16:44> History of Present Illness Chief Complaint: Ear Problem Narrative Narrative: 23-year-old female has had 2 days of isolated right ear pain. She has no fever, chills, headache, cough or congestion, or sore throat. No trauma. PFSH <LISA Mendoza - Last Filed: 08/26/23 16:44> PFSH Medical History Non-smoker Home Medications NK 07/27/22 [History Last Taken Unknown] Allergy/AdvReac Type Severity Reaction Status Date / Time amoxicillin Allergy Rash Verified 08/26/23 16:26 Penicillins Allergy Rash Verified 08/26/23 16:26 vancomycin Allergy Rash Verified 08/26/23 16:26 metoclopramide [From Reglan] AdvReac Other Verified 08/26/23 16:26 Surgical History History of laparoscopic cholecystectomy Social History Smoking Status: Never smoker substance use type: does not use ROS <LISA Mendoza - Last Filed: 08/26/23 16:44> ROS ED ROS Narrative Constitutional: Negative for fever, chills, malaise. ENT: Positive for ear pain. Negative for sore throat, rhinorrhea. Respiratory: Negative for shortness of breath, cough. Neuro: Negative for headache. EXAM <LISA Mendoza Last Filed: 08/26/23 16:44> Physical Exam Narrative Exam Narrative: CONST: Patient sitting in no acute distress. EYES: Normal inspection. ENT: Normal inspection, moist mucous membranes. Normal dentition without tenderness, no periapical abscess, no trismus or tongue elevation, normal posterior oropharynx, nares clear, normal external ears and canals, normal TMs bilaterally. No perforation or drainage. NECK: Normal inspection. No meningismus RESP: No respiratory distress, CTAB. CVS: Regular rate and rhythm, no murmur, no gallop. SKIN: Color normal, no rash, warm, dry, intact. EXTREMITIES: Normal appearance, no pedal edema. NEURO: Oriented x4. PSYCH: Normal affect. Const Vital Signs: 08/26/23 16:25 Temperature 96.8 F L Temperature Source Temporal Pulse Rate 81 Respiratory Rate 16 Blood Pressure 138/92 H Blood Pressure Mean 107 Pulse Ox 99 Oxygen Delivery Method Room Air <Dr. Ashu Fields DO - Last Filed: 08/26/23 16:54> Physical Exam Const Vital Signs: 08/26/23 16:25 Temperature 96.8 F L Temperature Source Temporal Pulse Rate 81 Respiratory Rate 16 Blood Pressure 138/92 H Blood Pressure Mean 107 Pulse Ox 99 Oxygen Delivery Method Room Air [facility] <LISA Mendoza - Last Filed: 08/26/23 16:44> [facility] Narrative Medical decision making narrative: Patient has 2 days of isolated right ear pain. She appears well and nontoxic. Afebrile with normal vital signs. Her HEENT exam is completely normal. There is no signs of otitis externa, media, or mastoiditis. She has no pain with movement of the jaw. She has no signs of dental caries or abscess or Evangelist's angina. Normal posterior oropharynx. I discussed she should take [id number] analgesia and be reevaluated if symptoms change or worsen. She declined Toradol or ibuprofen here and was discharged in stable condition. <Dr. Ashu Fields DO - Last Filed: 08/26/23 16:54> [facility] Narrative Medical decision making narrative: Patient has 2 days of isolated right ear pain. She appears well and nontoxic. Afebrile with normal vital signs. Her HEENT exam is completely normal. There is no signs of otitis externa, media, or mastoiditis. She has no pain with movement of the jaw. She has no signs of dental caries or abscess or Evangelist's angina. Normal posterior oropharynx. I discussed she should take [id number] analgesia and be reevaluated if symptoms change or worsen. She declined Toradol or ibuprofen here and was discharged in stable condition. I have personally performed a face to face assessment of the patient and have reviewed the MARYJO Note. I performed a substantive portion of the visit including all aspects of the following. My springer findings include: History is 23-year-old female reports right ear pain since yesterday. She notes a atraumatic frontal temporal headache since that time. She states that the forehead and maxillary region feel somewhat uncomfortable. She denies any fever or sore throat. No significant congestion or cough. No rashes. There is no muscle weakness seizures visual changes or speech changes. Exam is I see no rashes. The ear canal appears normal. Tympanic membranes appear normal bilaterally. No mastoid tenderness. No evidence of facial nerve palsy. Medical Decison Making patient was advised to be on the look out for any evidence of facial droop or rash. I am not seeing evidence of otitis externa or media. I do not see evidence of mastoiditis. Would recommend supportive care follow-up with primary care if not improved return if worsening or concerns Discharge Plan Triage Chief Complaint: Ear Problem ED Midlevel Provider: Maryann Bliss ED Provider: Ashu Fields Dx/Rx/DC Orders Clinical Impression: Otalgia of right ear Instructions: ED Earache Without Infection (Adult) Prescriptions: No Action NK Primary Care Provider: Care Physician,No Primary Referrals: Care Physician,No Primary [Primary Care Provider] - Activity Restrictions/Additional Instructions: Take Tylenol or Motrin as needed, if symptoms worsen be reevaluated Disposition Disposition: Home, Self Care Discharge Date/Time: 08/26/23 16:46
== END 2023-08-26 16:46 | disposition home or self-care (01) ==
LOC: ED 16:41
PROVIDERS: Emergency Provider Emergency Medicine; Visit Provider Emergency Medicine
DX: H92.01 Otalgia, right ear (principal); R51.9 Headache, unspecified
CPT/HCPCS: 99282

== ENCOUNTER 2023-11-05 16:21 | Emergency (ER) | payer MEDICAID, SELFPAY ==
[2023-11-05 16:22] VITALS: BP 129/79; PULSE 84; RESP 16; TEMP 36.6; O2SAT 99; BMI 37.8
--- NOTE | 2023-11-05 17:05 | ED.VIS.DENTA ---
HPI History of Present Illness Chief Complaint: Dental Informant: patient Onset/Context/Timing Onset: Days (3 days) Context: Gradual Onset Narrative Narrative: Patient presents with right lower dental pain for the past 3 days. She was able to call dentist this morning and has an appointment on , but was told to come to the emergency room for antibiotics. No fever or chills. PFSH PFSH Medical History Non-smoker Home Medications NK 07/27/22 [History Last Taken Unknown] clindamycin HCl 150 mg capsule 300 mg (2 x 150 mg) PO 4X/DAY #80 CAPSULES 11/05/23 [Rx Last Taken Unknown] naproxen 500 mg tablet (Naprosyn) 500 mg PO BID PRN pain #20 tabs 11/05/23 [Rx Last Taken Unknown] Allergy/AdvReac Type Severity Reaction Status Date / Time amoxicillin Allergy Rash Verified 11/05/23 16:22 Penicillins Allergy Rash Verified 11/05/23 16:22 vancomycin Allergy Rash Verified 11/05/23 16:22 metoclopramide [From Reglan] AdvReac Other Verified 11/05/23 16:22 Surgical History History of laparoscopic cholecystectomy History of tubal ligation Social History Smoking Status: Never smoker substance use type: does not use ROS ROS ED Constitutional Constitutional ED: Denies chills or fever(s) Eyes Eyes: Denies discharge from eye(s) ENT ENT ED: Reports other Details: Right lower dental pain ; Denies discharge from eye(s), rhinorrhea or sore throat Cardiovascular Cardiovascular: Denies chest pain Respiratory/Chest Respiratory/Chest: Denies cough or dyspnea Gastrointestinal Gastrointestinal: Denies abdominal pain, nausea or vomiting Musculoskeletal Musculoskeletal: Denies back pain or extremity pain Integumentary Denies Abrasions or rash Allergic/Immunologic Allergic/Immunologic ED: Denies lip swelling or urticaria EXAM Physical Exam Const Vital Signs: 11/05/23 16:22 Temperature 97.8 F Temperature Source Temporal Pulse Rate 84 Respiratory Rate 16 Blood Pressure 129/79 H Blood Pressure Mean 95 Pulse Ox 99 Oxygen Delivery Method Room Air Positive well nourished and well developed General Appearance ED: well developed HEENT HEENT Narrative: Intraoral examination reveals tenderness to the right third molar on the mandibular surface. Minimal surrounding gum edema. Posterior pharynx is normal. No trismus. No evidence of Evangelist's angina. Eyes EOMs intact bilaterally Neck no lymphadenopathy Chest Wall inspection of chest normal and palpation of chest normal Resp normal respiratory effort and clear to auscultation bilaterally Cardio regular rate and regular rhythm GI non-tender Palpation: soft Psych mental status grossly normal Skin no rashes or lesions noted MDM MDM MDM Narrative Medical decision making narrative: Patient has focal tenderness that is reproducible with palpation over the right third molar on the mandibular surface. She will treat with clindamycin as she does have a penicillin allergy. I will also write her for naproxen. She will follow-up with her dentist in 3 days as scheduled. Discharge Plan Triage Chief Complaint: Dental ED Provider: Shima Welsh Dx/Rx/DC Orders Clinical Impression: Odontalgia Instructions: ED Dental Pain Prescriptions: New naproxen [Naprosyn] 500 mg tablet 500 mg PO BID PRN (Reason: pain) Qty: 20 0RF clindamycin HCl 150 mg capsule 300 mg PO 4X/DAY Qty: 80 0RF No Action NK Primary Care Provider: Care Physician,No Primary Referrals: Care Physician,No Primary [Primary Care Provider] - Activity Restrictions/Additional Instructions: Follow-up your dentist on as scheduled. Disposition Disposition: Home, Self Care
[2023-11-05] MEDS: Clindamycin HCl 150 MG Capsule 300 MG PO (17:20)
[2023-11-05 17:23] VITALS: BP 129/79; PULSE 84; RESP 16; TEMP 36.6; O2SAT 99
== END 2023-11-05 17:24 | disposition home or self-care (01) ==
LOC: ED 17:14
PROVIDERS: Emergency Provider Emergency Medicine; Visit Provider Emergency Medicine
DX: K08.89 Other specified disorders of teeth and supporting structures (principal)
CPT/HCPCS: 99282

== ENCOUNTER 2024-06-21 08:10 | Emergency (ER) | payer SELFPAY ==
[2024-06-21 08:10] VITALS: BP 137/95; PULSE 97; RESP 19; TEMP 36.4; O2SAT 100; BMI 48.3
[2024-06-21 09:13] VITALS: BP 131/67; PULSE 82; RESP 15; TEMP 36.4; O2SAT 99
== END 2024-06-21 09:15 | disposition home or self-care (01) ==
LOC: ED 08:55
PROVIDERS: Emergency Provider Surgery; Visit Provider Surgery
DX: K05.30 Chronic periodontitis, unspecified (principal); K04.7 Periapical abscess without sinus
CPT/HCPCS: 99282

== ENCOUNTER 2025-01-31 13:08 | Emergency (ER) | payer OTHER, SELFPAY ==
[2025-01-31 13:09] VITALS: BP 136/87; PULSE 127; RESP 16; TEMP 36.6; O2SAT 99; BMI 48.3
--- NOTE | 2025-01-31 13:25 | RAD_ITS ---
PROCEDURE: CHEST PA AND LATERAL 01/31/2025 REASON FOR EXAM: R CHEST PAIN TECHNIQUE: CHEST PA AND LATERAL COMPARISON: Chest radiograph May 23, 2021 FINDINGS: Hardware: EKG lead wires project over the chest Heart: Normal size Mediastinum: Normal contours Lungs: Expanded and clear Bones: No aggressive process RAD/Chest PA and Lateral IMPRESSION: No acute process detected. Reading [facility]
--- NOTE | 2025-01-31 13:25 | EKG12_ITS ---
Test Reason : CP Blood Pressure : */* mmHG Vent. Rate : 97 BPM Atrial Rate : 97 BPM P-R Int : 152 ms QRS Dur : 88 ms QT Int : 350 ms P-R-T Axes : 28 17 17 degrees QTcB Int : 444 ms Normal sinus rhythm Normal ECG Confirmed by Darci Oropeza ([id number]), graphic editor LC HUYNH ([id number]) on 02/03/2025 11:47:10 AM Referred By: UG/TL Confirmed By: Darci Oropeza
[2025-01-31] MEDS: 0.9% Normal Saline (1000mL) 1,000 ML 1000 ML IV (13:37)
[2025-01-31 13:38] LABS: Absolute Lymphocyte Count 3.34 X10^3/uL (0.83-4.51); Absolute Neutrophil Count 6.9 X10^3/uL (2.0-7.7); Basophil# 0.05 X10^3/uL; Basophil% 0.4 % (0-1); Eosinophil# 0.15 X10^3/uL; Eosinophils% 1.3 % (0-5); Hematocrit 40.1 % (37-47); Hemoglobin 13.6 g/dL (12.0-15.0); Lymphocyte # 3.34 X10^3/ul (0.83-4.51); Mean Corp Hgb Conc 33.9 g/dL (32-36); Mean Corpuscular Volume 85.5 fL (81-99); Mean Platelet Vol. 10.7 fl (6.2-12.0); Monocyte# 0.67 X10^3/uL; NRBC Flagged by Analyzer 0 % (0-5); Neutrophil # 6.89 X10^3/uL (2.7-7.7); Neutrophil % 61.9 % (47-70); Platelet Count 262 K/mm3 (150-450); RBC Distribution Width CV 12.7 % (11.6-14.6); RBC Distribution Width SD 38.9 fl (35.1-43.9); Red Blood Count 4.69 M/mm3 (4.2-5.4); White Blood Count 11.1 K/mm3 (4.4-11.0)
--- OUTSIDE RECORDS SUMMARY | 2025-01-31 13:55 | XMS RPT_ITS | CCD ---
Author Organization [place] [facility] [employer] [facility] Care Team Providers Care Product Marketing Intern Name Role Phone Unavailable Primary Care Provider Unavailabl e Required, No Pcp Unavailable Unavailable Francesca Sierra Unavailable Unavailable Primitivo Bauer Unavailable Unavailabl e Unavailable Primary Care Provider Unavailabl e Jessica Henry RN Unavailable Unavailable Unavailable Primary Care Provider Unavailabl e Unavailable Primary Care Provider Unavailabl e Unavailable Primary Care Provider Unavailabl e Care Physician, No Primary Primary Care Unava ilable Shima Welsh Attending Unavailable Care Physician, No Primary Primary Care Unava ilable Ashu Fields Attending Unavailable Care Physician, No Primary Primary Care Unava ilable Ebenezer Trejo Attending Unavailabl e MANJIT TIJERINA Attending Unavailable Allergies Allergy Classification Reported Allergen(s) Allergy Type Date of Onset Reaction(s) Facility [facility] (1 source) Metoclopramide Drug Allergy 1 Anxiety [facility] Penicillins (antibiotic) (1 source) Amoxicillin Drug Allergy 1 Hives [facility] (20 sources) Amoxicillin; Translations: [AMOXICILLIN] Drug Allergy 6 Hives [facility] (2 sources) Metoclopramide Drug Allergy Other [facility] Comment on above: Anxiety / Restlessne ss (20 sources) Metoclopramide; Translations: [METOCLOPRAMIDE] Drug Allergy 1 Intolerance [facility] (6 sources) Penicillins Allergy to substance 2 Rash [facility] (18 sources) Vancomycin; Translations: [VANCOMYCIN] Drug Allergy 2 Hives, Shortness of Breath, Other: See Comments [facility] (1 source) Amoxicillin Drug Allergy 4 [facility] (1 source) Metoclopramide Drug Allergy 4 [facility] (1 source) Penicillins Drug allergy (disorder) 4 [facility] (1 source) Vancomycin Drug Allergy 4 [facility] Medications Current Medications Medication Drug Class(es) Dates Sig (Normalized) Sig (Original) [id number] 200 actuat albuterol 0.09 mg/actuat metered dose inhaler (1 source) beta2-Adrenergic Agonist Start: 05-23-2021 take 1 puff(s) by inhalation every four hours as needed Albuterol Sulfate (Ventolin Hfa) 90 mcg/actuation HFA aerosol inhaler Active 1 - 2 PUFF INHALATION EVERY 4 HOURS NEEDED May 23, 2021 12:00am azithromycin 250 mg oral tablet (2 sources) Macrolide Antimicrobial Start: 06-26-2024 End: 07-01-2024 take 2 tablets by mouth once daily, then take 1 tablet by mouth once daily azithromycin (ZITHROMAX) 250 mg tablet Indications: Acute cough Take 2 tablets by mouth once daily for 1 day, THEN 1 tablet once daily for 4 days. 6 tablet 06/26/2024 07/01/2024 Active Start: 08-11-2022 End: 08-16-2022 azithromycin (ZITHROMAX Z-PA K) 250 mg tablet Indications: Exudative tonsillitis Take 2 tablets day one, then, 1 tablet daily until gone. 6 tablet 0 08/11/2022 08/16/2022 Active Comment on above: Take 2 tablets day o ne, then, 1 tablet daily until gone. benzethonium chloride 2 mg/ml / benzocaine 200 mg/ml topical spray (1 source) Standardized Chemical Allergen Start: 03-12-20 Topical, PRN, Pain, Starting on 03/12/21 at 0518 Apply to perineal area. Patient is capable and may self administer at bedside. benzonatate 100 mg oral capsule (1 source) Non-narcotic Antitussive Start: 06-17-20 take 100 mg by mouth three times daily as needed Benzonatate Active 100 MG PO 3 TIMES DAILY NEEDED June 17, 2019 1:00am Bifidobacteri Bifid.And Longum (1 source) Start: 06-17-20 take 460 mg by mouth once daily Bifidobacteri Bifid.And Longum Active 460 MG PO DAILY June 17, 2019 1:00am cefdinir 300 mg oral capsule (1 source) Cephalosporin Antibacterial Start: 06-17-20 take 300 mg by mouth twice daily Cefdinir Active 300 MG PO TWICE A DAY June 17, 2019 1:00am clindamycin 150 mg oral capsule (5 sources) Lincosamide Antibacterial Start: 06-20-20 take 1 capsule by mouth three times daily clindamycin (CLEOCIN) 150 mg capsule Take 150 mg by mouth three times a day. 06/20/2024 Active Start: 11-05-2023 take 300 mg by mouth four times daily Clindamycin Hcl Active 300 MG PO 4 TIMES DAILY November 05, 2023 12:00am Start: 03-11-2021 End: 03-12-2021 clindamycin (CLEOCIN) 900 mg in dextrose 5 % 50 mL IVPB Start: 01-21-2021 End: 01-25-2021 clindamycin (CLEOCIN) capsul e 300 mg Start: 01-19-2021 End: 01-21-2021 900 mg, Intravenous, EVERY 8 HOURS, 6 doses, First dose on Sun01/19/21 at 0230, Last dose on Sun01/20/21 at 1830 codeine phosphate 2 mg/ml / promethazine hydrochloride 1.25 mg/ml oral solution (2 sources) Opioid Agonist, Phenothiazine Start: 05-23-2021 take 1 mL by mouth every six hours Promethazine-Codeine Active 5 ML PO EVERY 6 HOURS 140 May 24, 2021 12:00am dexamethasone 6 mg oral tablet (1 source) Corticosteroid Start: 05-23-2021 take 1 tablet by mouth once daily Dexamethasone (Decadron) 6 mg tablet Active 6 MG PO DAILY May 23, 2021 12:00am doxycycline monohydrate 100 mg oral capsule (1 source) Tetracycline-class Drug Start: 06-17-2019 take 100 mg by mouth twice daily Doxycycline Monohydrate Active 100 MG PO TWICE A DAY June 17, 2019 1:00am erythromycin 0.005 mg/mg ophthalmic ointment (1 source) Macrolide, Macrolide Antimicrobial Start: 05-23-2021 Erythromycin Active 1 APPLIC LEFT EYE 4 TIMES DAILY 3.5 5 May 23, 2021 12:00am 2 ml famotidine 10 mg/ml injection (2 sources) Histamine-2 Receptor Antagonist Start: 03-11-2021 famotidine (PEPCID) injection 20 mg Start: 01-21-2021 End: 03-11-2021 famotidine (PEPCID) tablet 2 0 mg fluconazole 150 mg oral tablet (4 sources) Azole Antifungal Start: 12-08-2023 End: 12-08-2023 take 1 tablet by mouth once fluconazole (DIFLUCAN) 150 mg tablet Take 1 tablet by mouth one time only for 1 dose. 1 tablet 0 12/08/2023 12/08/2023 Active Start: 03-01-2023 End: 03-01-2023 fluconazole (DIFLUCAN) 150 m g tablet Indications: Yeast dermatitis Take 1 tablet by mouth one time only for 1 dose. Take one tablet now and repeat dose in 72 hours. 2 tablet 0 03/01/2023 03/01/2023 Active Comment on above: Take 1 tablet by the [facility] one time only for 1 dose. Take one tablet now and repeat dose in 72 hours. FLUoxetine 20 mg oral capsule (1 source) Serotonin Reuptake Inhibitor Start: 06-17-20 take 20 mg by mouth once daily Fluoxetine Active 20 MG PO DAILY June 17, 2019 1:00am lanolin 1000 mg/ml topical cream (1 source) Start: 03-12-20 Topical, PRN, Dry Skin, nipple discomfort, Starting on 03/12/21 at 0518, metroNIDAZOLE 500 mg oral tablet (2 sources) Nitroimidazole Antimicrobial Start: 06-17-20 take 500 mg by mouth twice daily Metronidazole Active 500 MG PO TWICE A DAY June 17, 2019 1:00am Start: 06-17-2019 take 500 mg by mouth three times daily Metronidazole Active 500 MG PO THREE TIMES A DAY June 17, 2019 1:00am naproxen 500 mg oral tablet (1 source) Nonsteroidal Anti-inflammatory Drug Start: 11-05-2023 take 1 tablet by mouth twice daily Naproxen (Naprosyn) 500 mg tablet Active 500 MG PO TWICE A DAY November 05, 2023 12:00am nitrofurantoin, macrocrystals 25 mg / nitrofurantoin, monohydrate 75 mg oral capsule (5 sources) Nitrofuran Antibacterial Start: 12-07-2023 End: 12-12-2023 take 1 capsule by mouth twice daily nitrofurantoin monohydrate and macrocrystal (MACROBID) 100 mg capsule Indications: Dysuria Take 1 capsule by mouth two times a day for 5 days. 10 capsule 0 12/07/2023 12/12/2023 Active Start: 11-29-2022 End: 12-06-2022 take 1 capsule by mouth twice daily nitrofurantoin monohydrate and macrocrystal (MACROBID) 100 mg capsule Indications: Burning with urination Take 1 capsule by mouth twice daily for 7 days. 14 capsule 0 11/29/2022 12/06/2022 Active Comment on above: Take 1 capsule by mo [facility] twice daily for 7 days. [place] (Nk) (1 source) Start: 07-27-20 [place] (Nk) Active July 27, 2022 1:00am nystatin 100 unt/mg topical powder (1 source) Polyene Antifungal Start: 03-01-20 End: 03-15-20 nystatin (MYCOSTATIN) powder Indications: Yeast dermatitis Apply 1 application to affected area three times daily for 14 days. 60 g 2 03/01/2023 03/15/2023 Active Comment on above: Apply 1 application to affected area three times daily for 14 days. ondansetron 4 mg disintegrating oral tablet (3 sources) Serotonin-3 Receptor Antagonist Start: 11-10-19 take 1 tablet by mouth three times daily ondansetron 4 mg oral tablet, disintegrating ; 1 tab(s) orally 3 times a day Quantity: 15 Refills: 0 Ordered: 09-Nov-2021 Primitivo Bauer Start: 09-Nov-2021 Generic Substitution Allowed Start: 03-12-2021 4 mg, Intraven ous, EVERY 6 HOURS PRN, Nausea, Starting on 03/12/21 at 0518, take 1 tablet by eladia every eight hours as needed for nausea ondansetron (ZOFRAN) 4 MG tablet Take 4 mg by mouth every 8 hours as needed for Nausea or Vomiting 0 Active Vit-Fe Fumarate-FA ( VITAMINS) 28-0.8 MG TABS (1 source) Start: 03-13-2021 take 1 tablet by mouth once daily Vit-Fe Fumarate-FA ( VITAMINS) 28-0.8 MG TABS Take 1 tablet by mouth daily 90 tablet 1 03/13/2021 Active simethicone 80 mg chewable tablet (1 source) Start: 03-12-2021 take 80 mg by mouth every six hours as needed 80 mg, Oral, EVERY 6 HOURS PRN, Cramping, Flatulence, Starting on 03/12/21 at 0518, witch rah 500 mg/ml medicated pad (1 source) Start: 03-12-2021 Topical, PRN, Hemorrhoids, For perineal pain or discomfort, Starting on 03/12/21 at 0518 Apply to perineal area. Patient is capable and may self administer at bedside. Completed/Discontinued Medications Medication Drug Class(es) Dates Sig (Normalized) Sig (Original) 1.1 ml HYDROXYprogesterone caproate (penitentiary) 250 mg/ml auto-injector (20 sources) Start: 12-02-2021 HYDROXYprogest(PF )(preg presv) AutoInjector 275 mg (SLOANE) Start: 11-25-2021 End: 04-15-2022 inject 1.1 mL by subcutaneous injection every week HYDROXYprogest,PF,,preg presv, (SLOANE, PF,) 275 mg/1.1 mL auto-injector Inject 1.1 mL subcutaneously one time a week for 21 doses. 4.4 mL 4 11/25/2021 Active Comment on above: Inject 1.1 mL subcut aneously one time a week for 21 doses. acetaminophen 325 mg oral tablet (16 sources) Start: 05-14-20 End: 03-01-20 23 take 2 tablets by mouth every six hours as needed acetaminophen (TYLENOL) 325 mg tablet Take 2 tablets by mouth every 6 hours as needed for pain. 60 tablet 0 05/14/2022 03/01/2023 Discontinued Start: 03-11-2021 End: 03-12-2021 take 650 mg by mouth every six hours, then take 4000 mg by mouth every twenty-four hours 650 mg, Oral, EVERY 6 HOURS, First dose on 03/12/21 at 0545 Maximum dose of acetaminophen is 4000 mg from all sources in 24 hours. Start: 03-10-2021 End: 03-10-2021 acetaminophen (TYLENOL) tabl et 1,000 mg Start: 03-05-2021 End: 03-05-2021 acetaminophen (TYLENOL) tabl et 1,000 mg Start: 03-04-2021 End: 03-04-2021 acetaminophen (TYLENOL) tabl et 1,000 mg Start: 03-03-2021 End: 03-03-2021 acetaminophen (TYLENOL) tabl et 1,000 mg Start: 01-19-2021 End: 03-03-2021 650 mg, Oral, EVERY 4 HOURS PRN, Pain Mild (1-3), Pain Mild (1-3) or Fever greater than 100.5 F (38 C), Starting on Sun01/19/21 at 0204 Maximum dose of acetaminophen is 4000 mg from all sources in 24 hours. take 2 tablets by mo [facility] every four hours as needed Tylenol 325 mg oral tablet ; 2 tab(s) orally every 4 hours, As Needed Quantity: 0 Refills: 0 Ordered: 03-Oct-2021 Marshall Nash Generic Substitution Allowed Comment on above: Take 2 tablets by mo [facility] every 6 hours as needed for pain. acyclovir 400 mg oral tablet (11 sources) Herpesvirus Nucleoside Analog DNA Polymerase Inhibitor, Herpes Simplex Virus Nucleoside Analog DNA Polymerase Inhibitor, Herpes Zoster Virus Nucleoside Analog DNA Polymerase Inhibitor Start: 01-19-2021 End: 03-11-2021 acyclovir (ZOVIRAX) capsule 400 mg Start: 06-17-2019 take 1 tablet by eladia th three times daily acyclovir (ZOVIRAX) 400 mg tablet Indications: 34 weeks gestation of , Supervision of other high risk , antepartum , History of herpes genitalis Take 1 tablet by mouth three times daily. 60 tablet 1 04/12/2022 Active Comment on above: Take 1 tablet by eladia th three times daily. azithromycin (ZITHROMAX) 500 mg in dextrose 5 % 250 mL IVPB (add-vantage) (1 source) Start: 01-19-2021 End: 01-21-2021 500 mg, Intravenous, EVERY 24 HOURS, 2 doses, First dose on 01/19/21 at 0230, Last dose on Liliane 01/20/21 at 0230 Not more than one hour prior to delivery IF ruptured membranes greater than 4 hours or laboring betamethasone 3 mg/ml / betamethasone acetate 3 mg/ml injectable suspension (2 sources) Corticosteroid Start: 02-21-2021 End: 02-22-2021 betamethasone acetate-betamethasone sodium phosphate (CELESTONE) injection 12 mg Start: 01-19-2021 End: 01-19-2021 betamethasone acetate-betame thasone sodium phosphate (CELESTONE) injection 12 mg Breast Pump (7 sources) Start: 05-14-2022 End: 03-01-2023 Breast Pump Use as directed 1 Each 0 05/14/2022 03/01/2023 Discontinued Start: 05-14-2022 End: 05-14-2023 Breast Pump Use as directed 1 Each 0 05/14/2022 05/14/2023 Active Comment on above: Use as directed brompheniramine maleate 0.4 mg/ml / dextromethorphan hydrobromide 2 mg/ml / pseudoephedrine hydrochloride 6 mg/ml oral solution (3 sources) alpha-Adrenergic Agonist, Uncompetitive L-vlstqf-O-aspartate Receptor Antagonist, Sigma-1 Agonist Start: End: take 10 mL by mouth every six hours as needed Brompheniramine-Pse udoeph-DM (BROMFED DM) 2-30-10 mg/5 mL syrup Take 10 mL by mouth four times daily as needed. 200 mL 0 10/11/2022 03/01/2023 Discontinued Comment on above: Take 10 mL by mouth four times daily as needed. calcium carbonate 500 mg chewable tablet (1 source) Start: End: calcium carbonate (TUMS) chewable tablet 500 mg calcium chloride 0.0014 meq/ml / potassium chloride 0.004 meq/ml / sodium chloride 0.103 meq/ml / sodium lactate 0.028 meq/ml injectable solution (1 source) Start: End: lactated ringers infusion docusate sodium 100 mg oral capsule (9 sources) Start: End: take 1 capsule by mouth every twelve hours as needed docusate sodium (COLACE) 100 mg capsule Take 1 capsule by mouth twice daily as needed for constipation. 30 capsule 0 05/14/2022 03/01/2023 Discontinued Start: 01-19-2021 End: 03-11-2021 take 100 mg by mouth twice daily as needed for constipation 100 mg, Oral, 2 TIMES DAILY PRN, Constipation, Starting on 03/12/21 at 0518 Do not crush or break. Comment on above: Take 1 capsule by mo [facility] twice daily as needed for constipation. gentamicin (GARAMYCIN) 354 mg in dextrose 5 % 250 mL IVPB (1 source) Start: 1 End: 1 gentamicin (GARAMYCIN) 354 mg in dextrose 5 % 250 mL IVPB gentamicin (GARAMYCIN) 408 mg in dextrose 5 % 250 mL IVPB (1 source) Start: 1 End: 1 408 mg (5 mg/kg 81.6 kg), Intravenous, EVERY 24 HOURS, 2 doses, First dose on 01/19/21 at 0330, Last dose on Liliane 01/20/21 at 0330 ibuprofen 600 mg oral tablet (10 sources) Nonsteroidal Anti-inflammatory Drug Start: 2 End: 3 take 1 tablet by mouth every six hours as needed ibuprofen (MOTRIN) 600 mg tablet Take 1 tablet by mouth every 6 hours as needed for pain. 60 tablet 0 05/14/2022 03/01/2023 Discontinued Start: 03-11-2021 take 1 tablet by eladia every six hours as needed for pain ibuprofen (ADVIL;MOTRIN) 600 MG tablet Take 1 tablet by mouth every 6 hours as needed for Pain 120 tablet 0 03/13/2021 Active Comment on above: Take 1 tablet by eladia every 6 hours as needed for pain. magnesium oxide 400 mg oral tablet (7 sources) Start: 11-30-2021 take 1 tablet by mouth once daily magnesium oxide 400 mg magnesium tab Indications: 15 weeks gestation of , Headaches Take 400 mg by mouth once daily. 60 tablet 0 11/30/2021 Active Comment on above: Take 400 mg by mouth once daily. oxytoxin (PITOCIN) 30 units in 500 mL infusion (1 source) Start: 03-11-2021 End: 03-12-2021 oxytoxin (PITOCIN) 30 units in 500 mL infusion PNV no.95/ferrous fum/folic ac ( ORAL) (20 sources) End: 03-01-2023 PNV no.95/ferrous fum/folic ac ( ORAL) Take by mouth. 0 03/01/2023 Discontinued PNV no.95/ferrou s fum/folic ac ( ORAL) Take by mouth. 0 Active Comment on above: Take by mouth. Vit-Fe Fumarate-FA ( 1+1 PO) (1 source) End: 03-12-20 Vit-Fe Fumarate-FA ( 1+1 PO) Take by mouth 0 03/12/2021 Discontinued vitamin 27-1 MG tablet 1 tablet (1 source) Start: 01-21-20 End: 03-11-20 take 1 tablet by mouth once daily 1 tablet, Oral, DAILY, First dose on Sun01/20/21 at 0900 prochlorperazine 5 mg oral tablet (2 sources) Phenothiazine Start: 03-04-20 End: 03-04-20 prochlorperazine (COMPAZINE) tablet 5 mg Start: 03-03-2021 End: 03-03-2021 prochlorperazine (COMPAZINE) tablet 5 mg 3 ml sodium chloride 9 mg/ml injection (4 sources) Start: 2021 End: 03-12-2021 sodium chloride flush 0.9 % injection 10 mL Start: 03-05-2021 End: 03-06-2021 sodium chloride flush 0.9 % injection 5-40 mL Start: 01-19-2021 End: 01-23-2021 10 mL, Intravenous, EVERY 12 HOURS SCHEDULED (2 times per day), First dose on Sun01/19/21 at 0900 Start: 01-19-2021 End: 01-23-2021 take 10 mL intravenously once as needed 10 mL, Intravenous, PRN, Line Care, After every IV line use, Starting on Sun01/19/21 at 0204 Problems Active Problems Problem Classification Problem Date Documented Da te Episodic/Chronic Acute and chronic tonsillitis (1 source) Tonsillitis; Translations: [Acute tonsillitis, unspecified] Episodic Acute bronchitis (3 sources) Acute bronchitis co-occurrent with wheeze; Translations: [Acute bronchitis, unspecified] 05-12-2023 Episodic Fever of unknown origin (7 sources) Fever; Translations: [Fever, unspecified] Episodic Genitourinary congenital anomalies (2 sources) Hydronephrosis; 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 Genitourinary symptoms and ill-defined conditions (4 sources) Scalding pain on urination ; Translations: [Dysuria] Onset: 5 Episodic Headache; including migraine (1 source) Headache; Translations: [Headaches] Episodic Immunizations and screening for infectious disease (2 sources) Vaccination needed; Translations: [Encounter for immunization] Episodic Inflammatory diseases of female pelvic organs (6 sources) Acute pelvic inflammatory disease; Translations: [Acute parametritis and pelvic cellulitis] 06-18-2019 Episodic Lymphadenitis (6 sources) Mesenteric lymphadenitis; Translations: [Nonspecific mesenteric lymphadenitis] 03-19-2019 Episodic Menstrual disorders (20 sources) Irregular periods; Translations: [Irregular menstruation, unspecified] Onset: 2 10-07-2021 Chronic Mycoses (1 source) Candidiasis of skin; Translations: [Candidiasis of skin and nail] 03-01-2023 Episodic Nausea and vomiting (2 sources) Vomiting 11-09-2021 Episodic Comment on above: VOMITING Other circulatory disease (3 sources) Elevated blood pressure; Translations: [Elevated blood-pressure reading, without diagnosis of hypertension] 05-12-2023 Episodic Other complications of ; puerperium affecting management of mother (1 source) gastrointestinal abnormality; Translations: [Maternal care for other (suspected) abnormality and damage, not applicable or unspecified] Episodic Other complications of ; puerperium affecting management of mother (1 source) disorder; Translations: [Maternal care for (suspected) abnormality and damage, unspecified, not applicable or unspecified] Episodic Other complications of ; puerperium affecting management of mother (1 source) Disorder of structure; Translations: [Maternal care for (suspected) abnormality and damage, unspecified, not applicable or unspecified] Episodic Other complications of ; puerperium affecting management of mother (6 sources) Teenage ; Translations: [Teen ] 03-18-2019 Episodic Other complications of (1 source) Obesity; Translations: [Obesity complicating , unspecified trimester] Chronic Other complications of (1 source) Maternal obesity complicating , childbirth and the puerperium, antepartum; Translations: [Obesity complicating , third trimester] Chronic Other complications of (1 source) Complication of , childbirth and/or the puerperium; Translations: [Other specified complications of , unspecified as to episode of care or not applicable] 10-03-2021 Episodic Other complications of (1 source) Vomiting of ; Translations: [Unspecified vomiting of , unspecified as to episode of care or not applicable] 11-09-2021 Episodic Other complications of (1 source) ultrasound scan abnormal; Translations: [Abnormal ultrasonic finding on screening of mother] Episodic Other complications of (1 source) Reduced movement; Translations: [Decreased movements, third trimester, not applicable or unspecified] Episodic Other female genital disorders (3 sources) Vaginal discharge; Translations: [Leukorrhea, not specified as infective] 10-03-2021 Episodic Other female genital disorders (1 source) Other specified noninflammatory disorders of vagina; Translations: [Vaginal itching] Onset: Episodic Other gastrointestinal disorders (3 sources) Diarrhea; Translations: [Diarrhea, unspecified] 05-12-2023 Episodic Other infections; including parasitic (1 source) History of sexually transmitted disease; Translations: [Personal history of other infectious and parasitic diseases] Episodic Other lower respiratory disease (1 source) Cough; Translations: [Acute cough] 06-26-2024 Episodic Other nutritional; endocrine; and metabolic disorders (4 sources) Body mass index 30+ - obesity; Translations: [Obesity, unspecified] 10-01-2022 Chronic Other upper respiratory infections (10 sources) Streptococcal sore throat; Translations: [Streptococcal pharyngitis] Episodic Residual codes; unclassified (1 source) Gestation period, 15 weeks; Translations: [15 weeks gestation of ] Episodic Residual codes; unclassified (1 source) Gestation period, 19 weeks; Translations: [19 weeks gestation of ] Episodic Residual codes; unclassified (1 source) Gestation period, 23 weeks; Translations: [23 weeks gestation of ] Episodic Residual codes; unclassified (2 sources) Gestation period, 27 weeks; Translations: [27 weeks gestation of ] Episodic Residual codes; unclassified (1 source) Gestation period, 30 weeks; Translations: [30 weeks gestation of ] Episodic Residual codes; unclassified (1 source) Gestation period, 31 weeks; Translations: [31 weeks gestation of ] Episodic Residual codes; unclassified (2 sources) Gestation period, 34 weeks; Translations: [34 weeks gestation of ] Episodic Residual codes; unclassified (1 source) Gestation period, 35 weeks; Translations: [35 weeks gestation of ] Episodic Residual codes; unclassified (1 source) Gestation period, 36 weeks; Translations: [36 weeks gestation of ] Episodic Residual codes; unclassified (1 source) Gestation period, 37 weeks; Translations: [37 weeks gestation of ] Episodic Sickle cell anemia (6 sources) Sickle cell trait; Translations: [Sickle-cell trait] 03-18-2019 Chronic Syncope (4 sources) Near syncope; Translations: [Syncope and collapse] 10-01-2022 Episodic Unclassified (2 sources) PT 7 WEEKS ; BROWN DISCHARGE 10-03-2021 Comment on above: PT 7 WEEKS ; BROWN DISCHARGE Unclassified (1 source) Abdominal cramping affecting 10-03-2021 Unclassified (1 source) Vomiting during 11-09-2021 Unclassified (1 source) APPOINTMENT CANCELLED Viral infection (15 sources) Disease caused by 2019-nCoV; Translations: [COVID-19] 05-23-2021 Episodic Past or Other Problems Problem Classification Problem Date Documented Date Episodic/Chronic Bacterial infection; unspecified site (11 sources) Bacteria present; Translations: [Streptococcus, group B, as the cause of diseases classified elsewhere] Onset: 04-28-2022 Resolved: 06-08-2022 04-28-2022 Episodic Disorders of teeth and jaw (2 sources) Toothache; Translations: [Other specified disorders of teeth and supporting structures] Onset: 11-08-2023 11-05-2023 Episodic Other complications of ; puerperium affecting management of mother (20 sources) ultrasound scan abnormal; Translations: [Maternal care for other (suspected) abnormality and damage, not applicable or unspecified] Onset: 12-30-2021 Resolved: 06-08-2022 12-30-2021 Episodic Other complications of ; puerperium affecting management of mother (20 sources) Anomaly of kidney; Translations: [Maternal care for other (suspected) abnormality and damage, not applicable or unspecified] Onset: 03-27-2022 Resolved: 06-08-2022 Episodic Other complications of (20 sources) High risk ; Translations: [Supervision of other high risk pregnancies, unspecified trimester] Onset: 12-28-2021 Resolved: 06-08-2022 Episodic Other ear and sense organ disorders (3 sources) Otalgia, right ear; Translations: [Right ear pain] Onset: 08-31-2023 08-26-2023 Episodic Other and delivery including normal (20 sources) Patient encounter status; Translations: [Encounter for supervision of normal , unspecified, unspecified trimester] Onset: 11-09-2016 Resolved: 08-03-2017 Episodic Other screening for suspected conditions (not mental disorders or infectious disease) (5 sources) No liquor observed vaginally ; Translations: [Encounter for suspected problem with amniotic cavity and membrane ruled out] Onset: 12-24-2020 Resolved: 10-07-2021 10-07-2021 Episodic Polyhydramnios and other problems of amniotic cavity (9 sources) premature rupture of membranes with onset of labor later than 24 hours after rupture; Translations: [ premature rupture of membranes, onset of labor more than 24 hours following rupture, third trimester] Onset: 12-24-2020 Resolved: 10-07-2021 Episodic Residual codes; unclassified (20 sources) FH: Sickle cell trait; Translations: [Family history of diseases of the blood and blood-forming organs and certain disorders involving the immune mechanism] Onset: 11-09-2016 10-07-2021 Episodic Residual codes; unclassified (20 sources) History of premature rupture of membranes; Translations: [Personal history of other complications of , childbirth and the puerperium] Onset: 10-07-2021 10-07-2021 Episodic Residual codes; unclassified (20 sources) Finding of menstrual bleeding; Translations: [Other specified health status] Onset: 10-07-2021 Resolved: 06-08-2022 10-07-2021 Episodic Residual codes; unclassified (8 sources) Gestation period, 38 weeks; Translations: [38 weeks gestation of ] Onset: 05-10-2022 Resolved: 06-08-2022 Episodic Residual codes; unclassified (5 sources) Gestation period, 39 weeks; Translations: [39 weeks gestation of ] Onset: 05-12-2022 Resolved: 06-08-2022 06-08-2022 Episodic Screening and history of mental health and substance abuse codes (20 sources) H/O: depression; Translations: [Personal history of other mental and behavioral disorders] Onset: 10-07-2021 10-07-2021 Episodic Results Test Name Value Interpretation Reference Range Facil ity BACTERIAL VAGINOSIS NAATon 0 01-01-2025 Lactobacillus crispatus+gasseri+shantanu enii + Gardnerella vaginalis + Atopobium vaginae rRNA LANYN+probe Ql (Vag fld) Not detected Normal Not detected [facility] Comment on above: Order Comment: Speci men Type: SWAB Ordering Facility: [facility] Address: [address] [place] [address] Performed By: #### 3 6902-5, BVAMP #### [facility] CLIA [id number] [address] [place] [address] [place] Bacteria Ur Culton Bacteria identified Cx Nom (U) ORGANISM ID: 1 10,000 -<50,000 CFU/ml Normal urogenital justin Normal [facility] Comment on above: Performed By: #### 6 30-4 #### [facility] CLIA [id number] [address] [place] [address] [place] C. trachomatis+N. gonorrhoea e DNA LANNY+probe Ql (Unsp spec)on 01-01-2025 C. trachomatis rRNA LANNY+probe Ql (Unsp spec) Not detected Normal Not detected [facility] Comment on above: Order Comment: Speci men Type: SWAB Ordering Facility: [facility] Address: [address] [place] [address] Performed By: #### 3 6902-5, BVAMP #### [facility] CLIA [id number] [address] [place] [address] [place] N. gonorrhoeae rRNA LANNY+probe Ql (Unsp spec) Not detected Normal Not detected [facility] Comment on above: Order Comment: Speci men Type: SWAB Ordering Facility: [facility] Address: [address] [place] [address] Performed By: #### 3 6902-5, BVAMP #### [facility] CLIA [id number] [address] [place] [address] [place] [facility] [place] DULCE MARIA/TRICHOMONAS NAATon 0 01-01-2025 C. glabrata RNA LANNY+probe Ql (Vag fld) Not detected Normal Not detected [facility] Comment on above: Order Comment: Speci men Type: SWAB Ordering Facility: [facility] Address: [address] [place] [address] Performed By: #### C VTV #### [facility] CLIA [id number] [address] [place] [address] [place] Dulce Maria sp DNA LANNY+probe Ql (Vag fld) Detected Abnormal Not detected [facility] Comment on above: Order Comment: Speci men Type: SWAB Ordering Facility: [facility] Address: [address] [place] [address] Result Comment: The Dulce Maria species group target includes C. albicans, C. tropicalis, C. parapsilosis, and C. dubliniensis. Performed By: #### C VTV #### [facility] CLIA [id number] [address] [place] [address] OF [place] T. vaginalis DNA LANNY+probe Ql (Unsp spec) Not detected Normal Not detected [facility] Comment on above: Order Comment: Speci men Type: SWAB Ordering Facility: [facility] Address: [address] [place] [address] Performed By: #### C VTV #### [facility] CLIA [id number] [address] [place] [address] [place] CNOVon 01-01-2025 CNOV Office Visit (UCWSTR) RAYMOND BROWNLEE ([id number]) 1 F Date Time Provider Department 01/01/25 9:00 AM MANJIT TIJERINA [facility] During your visit today, we recorded the following information about you: Temperature Pulse Respiration Blood pressure 98.4 degrees 87/minute 18/minute 102/72 Weight 119 kg Manjit Tijerina PA 01/01/2025 9:27 AM Signed [facility] Subjective Raymond Brownlee is a 24 year old female. Patient presents with: burning with urination: Burning and itching x 2 days HPI Dysuria and Pruritus: - Dysuria and pruritus in the genital area. - Denies rash or visible lesions. - No recent antibiotic use. - No changes in body wash; recent change in shampoo. - Denies pelvic pain or fevers. - Chronic back pain, no recent changes. Vaginal Discharge: - Noted white vaginal discharge. Herpes: - Diagnosed with herpes at age 19 during a hospital visit for suspected UTI. - No history of outbreaks or lesions. - Treated with medication for 4 days at the time of diagnosis, with resolution of symptoms. - No issues since diagnosis. Sexual Activity: - Sexually active; for 6 years. - Denies concern for STDs. : - Denies concern for ; history of bilateral salpingectomy. 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 (Patient not taking: Reported on 01/01/2025) FAMILY HISTORY Problem Relation Age of Onset Alcohol/Drug Mother other (Mental disorder unspecific) Mother other (ADHD) Sister other (ADHD) Brother Social History Tobacco Use Smoking status: Never Smokeless tobacco: Never Vaping Use Vaping status: Never Used Substance Use Topics Alcohol use: No Drug use: No Review of Systems Constitutional: (-) fever Genitourinary: (+) dysuria, (+) itching, (+) white vaginal discharge, (-) pelvic pain Musculoskeletal: (+) chronic back pain Skin: (-) rash Objective BP 102/72 Pulse 87 Temp 36.9 ?C (98.4 ?F) (Tympanic) Resp 18 Wt 119 kg (262 lb 5.6 oz) LMP 06/21/2024 (Exact Date) SpO2 96% BMI 47.98 kg/m? Nursing note reviewed. Vitals reviewed. 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 Abdominal: No abdominal tenderness. No CVA tenderness. : External exam performed. No rash or lesions. No herpetic lesions observed. Patient declined internal exam, did self swabs. {1. Burning with urination (R30.0) 2. Vaginal itching (N89.8) - No visible herpes lesions or rash on examination. - Urinalysis does not indicate a UTI; urine culture ordered to confirm. - Vaginal swabs obtained to test for chlamydia, gonorrhea, trichomonas, bacterial vaginosis, and yeast infections. - Will follow up with patient in the next few days to discuss results and initiate appropriate treatment based on findings. Recording using [employer] software for draft documentation of the visit was discussed with the patient/authorized veterans employment representative; all questions welcomed and answered. Patient/authorized veterans employment representative agreed to proceed Diagnosis and treatment plan were discussed and questions were answered to the patient's satisfaction. Pt acknowledged understanding of concepts and follow up plan. Specific signs and symptoms that would indicate the need for higher level of care were discussed in detail warranting prompt ER evaluation. History and Record Review External record(s) reviewed: prior outpatient record. Differential Diagnoses - Vaginitis is more likely for the following reason(s): Awaiting swab result, suggested by HANDP - UTI is less likely for the following reason(s): laboratory studies not suggestive Disposition The patient was discharged. Procedures Allergies As of Date: 01/01/2025 Noted Allergy Reaction VANCOMYCIN 05/12/2022 4 - Hives 12 - Shortness of Breath 14 - Other: See Comments Comments: SOB, Chest pain , rash AMOXICILLIN 10/21/2015 4 - Hives METOCLOPRAMIDE 01/03/2021 5 - Intolerance Date Reviewed: 01/01/2025 Reviewed by: Alicia Alejandre LPN - Fully Assessed Reason for Visit: burning with urination [Other] Cmt: Burning and itching x 2 days Primary Visit Diagnosis:Burning with urination [R30.0] Other Visit Diagnosis:Vaginal itching [N89.8] Order(s):UA DIP, URINE (POC) [1284172] Order #: [id number]. #:[id number] BACTERIAL CULTURE, URINE [SQURCUL] Order #: [id number] (more content not included)... Normal [facility] CNOVon 06-26-2024 CNOV Office Visit (UCWSTR) RAYMOND BROWNLEE ([id number]) 1 F Date Time Provider Department 06/26/24 9:30 AM CANDIDO WHALEN [facility] During your visit today, we recorded the following information about you: Temperature Pulse Respiration Blood pressure 98.7 degrees 92/minute 16/minute 114/77 Weight Last Period 114.8 kg 06/21/24 Candido Whalen APRN.[facility] 06/26/2024 10:03 AM Signed CC: Patient presents with: URI: X 3 days with BRIDGETTE ear fullness x 2 days HPI: Raymond Brownlee is a 24 year old female who presents to the office with complaint of head congestion, cough, nonproductive, sore throat, sinus symptoms, and ear symptoms for a few days. Symptoms are worsening Associated symptoms includes ear pain and ear pressure . Denies wheezing, dyspnea, nausea, vomiting , and diarrhea. Treatments tried include nothing so far. with no relief of symptoms. Sick contacts: unknown. History of asthma, frequent episodes of bronchitis, chronic bronchitis, bronchiectasis or COPD: No Smoker: No Seasonal/environment al allergies: No The ROS is otherwise negative. The patient's pmh, medications, allergies, and past visits are reviewed. PHYSICAL EXAM: BP 114/77 Pulse 92 Temp 37.1 ?C (98.7 ?F) (Right Tympanic) Resp 16 Wt 114.8 kg (253 lb 1.4 oz) LMP 06/21/2024 (Exact Date) SpO2 96% BMI 46.29 kg/m? General appearance: alert, cooperative, pleasant, in no acute distress Head: Normocephalic Eyes: EOM's intact, conjunctiva pink and moist, no icterus, sclera white, non-injected Ears: Right ear: External ear/canal- Normal, TM - clear with good landmarks. Left ear: External ear/canal- Normal, TM - clear with good landmarks Oropharynx:moderate erythema, without exudates present Heart: Negative. RRR without obvious murmur, gallop, or rubs. No ectopy. 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 FAMILY HISTORY Problem Relation Age of Onset Alcohol/Drug Mother other (Mental disorder unspecific) Mother other (ADHD) Sister other (ADHD) Brother Social History Tobacco Use Smoking status: Never Smokeless tobacco: Never Vaping Use Vaping status: Never Used Substance Use Topics Alcohol use: No Drug use: No ASSESSMENT/PLAN: 1. Sore throat - ICD9: 462, ICD10: J02.9 (primary diagnosis) - STREP A MOLECULAR (POC) - neg 2. Acute cough - ICD9: 786.2, ICD10: R05.1 - AZITHROMYCIN 250 MG TABLET To start if not feeling better in a few days. No insurance does not want xray at this time. Prescription instructions reviewed with patient as applicable. Potential red flag symptoms discussed with the patient. Reviewed appropriate action plan to take if red flag symptoms occur. Patient agreeable to treatment plan. Candiod Whalen APRN.[employer] Referring Provider: SELF [200] Allergies As of Date: 06/26/2024 Noted Allergy Reaction VANCOMYCIN 05/12/2022 4 - Hives 12 - Shortness of Breath 14 - Other: See Comments Comments: SOB, Chest pain , rash AMOXICILLIN 10/21/2015 4 - Hives METOCLOPRAMIDE 01/03/2021 5 - Intolerance Date Reviewed: 06/26/2024 Reviewed by: Nieves Alicea MA - Fully Assessed Reason for Visit: URI [115] Cmt: X 3 days with BRIDGETTE ear fullness x 2 days Primary Visit Diagnosis:Sore throat [J02.9] Other Visit Diagnosis:Acute cough [R05.1] Order(s):STREP A MOLECULAR (POC) [5345311] Order #: [id number]. #:[id number] azithromycin (ZITHROMAX) 250 mg tabletTake 2 tablets by mouth once daily for 1 day, THEN 1 tablet once daily for 4 days.Disp: 6 tabletRfl: 0 Prescriptions as of 06/26/2024 - clindamycin (CLEOCIN) 150 mg capsule Take 150 mg by mouth three times a day. - azithromycin (ZITHROMAX) 250 mg tablet Take 2 tablets by mouth once daily for 1 day, THEN 1 tablet once daily for 4 days. Problem List As Of Date 06/26/2024 Noted Resolved Encounter for supervision of normal i*11/09/2016 08/03/2017 Family history of sickle cell trait [Z83.2] 11/09/2016 S/P cholecystectomy [Z90.49] 01/04/2017 No leakage of amniotic fluid into vagina [Z03.7*12/24/2020 10/07/2021 Oligohydramnios in second trimester [O41.02X0] 12/24/2020 10/07/2021 History of premature rupture of membran*10/07/2021 History of depression [Z86.59] 10/07/2021 Date of last menstrual period (LMP) unknown [Z7*10/07/2021 06/08/2022 (more content not included)... Normal [facility] STREP A MOLECULAR (POC)on Procedural Control Valid [facility] Strep A (POCT) Negative Negative [facility] Emergency Department Summary on 06-21-2024 Emergency Department Summary [facility] Medical Records Department [address] [place] [address] Emergency Department Summary 06/21/24 MR#: [id number] Acct: [id number] Name: RAYMOND BROWNLEE Rep #: [id number] : 2000 24 From: Ebenezer Trejo DO PCP: Care Physician,No Primary Status:PRE ER Location: ED HPI History of Present Illness Chief Complaint: Dental Narrative Narrative: Chief complaint and HPI: Dental pain with known infection. 24-year-old female presents for evaluation of right lower dental pain with known dental infection. Patient follows with a dentist regularly. She states that her right lower wisdom tooth periodically gets infected. She states she is supposed to have surgery to get this removed. She states she started having pain a couple days ago. She saw her dentist yesterday who diagnosed her with dental infection and placed her on antibiotics. Patient states that she took all of her antibiotics yesterday. She states she had some increase in swelling today which is why she presents for further evaluation. She denies any fever, chills, headache, vision changes. She is eating and drinking well. Tolerating secretions. No change in her voice. Review of systems: See HPI Medications: As listed on the chart Allergies: As listed on the chart PFSH: Per chart Vital signs: As listed on the chart. Reviewed. Physical exam: Gen: A O x3, NAD Head: Normocephalic, atraumatic Eyes: No sclera icterus, conjunctiva clear, PERRL, EOMI ENT: TMs clear BL, moist mucous membranes, tolerating secretions, posterior oropharynx unremarkable, uvula midline, tonsils not enlarged, no tonsillar exudates, no posterior oropharynx swelling, no tongue enlargement or swelling, no submandibular swelling, no Evangelist angina, no trismus, patient has gingival swelling of the right lower wisdom tooth with mild soft tissue swelling of the overlying cheek, no dental abscess, no hot potato or hoarse voice Neck: Trachea midline, No JVD, Full ROM, No meningismus, no swelling CV: RRR, no murmurs, no peripheral edema Resp: Lungs CTA BL, no w/r/c, no stridor Skin: Warm, dry, no rash Neuro: Alert, oriented, grossly intact, sensation intact Psych: Cooperative, appropriate mood and affect PFSH PFSH Medical History Non-smoker Home Medications ???Medication ???Instructions ???Recorded ???Last Taken ???Type NK 07/27/22 Unknown History clindamycin HCl 150 mg capsule 300 mg (2 x 150 mg) PO 4X/DAY #80 11/05/23 Unknown Rx CAPSULES naproxen 500 mg tablet (Naprosyn) 500 mg PO BID PRN pain #20 tabs 11/05/23 Unknown Rx Allergy/AdvReac Type Severity Reaction Status Date / Time amoxicillin Allergy Rash Verified 06/21/24 08:19 Penicillins Allergy Rash Verified 06/21/24 08:19 vancomycin Allergy Rash Verified 06/21/24 08:19 metoclopramide (From Reglan) AdvReac Other Verified 06/21/24 08:19 Surgical History History of laparoscopic cholecystectomy History of tubal ligation Social History Smoking Status: Never smoker substance use type: does not use EXAM Physical Exam Const Vital Signs: 06/21/24 08:10 Temperature 97.6 F L Temperature Source Temporal Pulse Rate 97 Respiratory Rate 19 H Blood Pressure 137/95 H Blood Pressure Mean 109 Pulse Ox 100 Oxygen Delivery Method Room Air MDM MDM MDM Narrative Medical decision making narrative: 24-year-old female presents for evaluation of dental pain with known dental infection. Patient saw her dentist yesterday and was diagnosed with a dental infection. She was started on antibiotics. See physical exam findings. No dental abscess to I D. No signs of Evangelist angina or deeper abscess/infection. Patient does have mild soft tissue swelling overlying where her dental infection is located. No laboratory workup or imaging needed at this time. Patient was educated on ice as needed for swelling. Continue the ibuprofen her dentist wrote her. Continue her antibiotics. Patient was educated that the swelling and pain should improve in the next 48 to 72 hours. She confirmed understanding. She is given education on warning symptoms such as fever, headache, vision changes, worsening swelling, difficulty tolerating secretions. She was educated if she develops the symptoms she is to return back to the ED. She confirmed understanding the plan. Follow-up with her dentist. Impression: 1. Right lower pericoronitis Discharge Plan Triage Chief Complaint: Dental ED Provider: Ebenezer Trejo Dx/Rx/DC Orders Prescriptions: No Action NK naproxen [Naprosyn] 500 mg tablet 500 mg PO BID PRN (Reason: pain) Qty: 20 0RF clindamycin HCl 150 mg capsule 300 mg PO 4X/DAY Qty: 80 0RF Rain (more content not included)... Normal [facility] STREP A MOLECULAR (POC)on Procedural Control Valid [facility] Strep A (POCT) Negative Negative [facility] UA DIP, URINE (POC)on 2023 BILIRUBIN UA (POCT) Negative Negative [facility] CLARITY UA (POCT) Clear [facility] COLOR UA (POCT) Yellow [facility] GLUCOSE UA (POCT) Negative Negative mg/dL [facility] Hemoglobin Ql (U) Negative Negative [facility] Interpretation and review of laboratory results Abnormal [facility] KETONE UA (POCT) Negative Negative mg/dL [facility] LEUKOCYTES UA (POCT) Small Abnormal Negative [facility] NITRITE UA (POCT) Negative Negative [facility] PH UA (POCT) 5.5 4.5 - 8.0 [facility] Protein Ql (U) Negative Negative mg/dL [facility] SPECIFIC GRAVITY UA (POCT) 1.015 1.005 - 1.030 [facility] UROBILINOGEN UA (POCT) 0.2 Normal E.U./d L [facility] Location:[facility], [address] [place] [address], [address] [facility] POINT [facility] Emergency Department Summary on 11-05-2023 Emergency Department Summary [facility] Medical Records Department [address] [place] [address] Emergency Department Summary 11/05/23 MR#: [id number] Acct: [id number] Name: RAYMOND BROWNLEE Rep #: [id number] : 2000 23 From: Shima Welsh MD PCP: Care Physician,No Primary Status:DEP ER Location: ED HPI History of Present Illness Chief Complaint: Dental Informant: patient Onset/Context/Timing Onset: Days (3 days) Context: Gradual Onset Narrative Narrative: Patient presents with right lower dental pain for the past 3 days. She was able to call dentist this morning and has an appointment on , but was told to come to the emergency room for antibiotics. No fever or chills. PFSH PFS Medical History Non-smoker Home Medications NK 07/27/22 [History Last Taken Unknown] clindamycin HCl 150 mg capsule 300 mg (2 x 150 mg) PO 4X/DAY #80 CAPSULES 11/05/23 [Rx Last Taken Unknown] naproxen 500 mg tablet (Naprosyn) 500 mg PO BID PRN pain #20 tabs 11/05/23 [Rx Last Taken Unknown] Allergy/AdvReac Type Severity Reaction Status Date / Time amoxicillin Allergy Rash Verified 11/05/23 16:22 Penicillins Allergy Rash Verified 11/05/23 16:22 vancomycin Allergy Rash Verified 11/05/23 16:22 metoclopramide [From Reglan] AdvReac Other Verified 11/05/23 16:22 Surgical History History of laparoscopic cholecystectomy History of tubal ligation Social History Smoking Status: Never smoker substance use type: does not use ROS ROS ED Constitutional Constitutional ED: Denies chills or fever(s) Eyes Eyes: Denies discharge from eye(s) ENT ENT ED: Reports other Details: Right lower dental pain ; Denies discharge from eye(s), rhinorrhea or sore throat Cardiovascular Cardiovascular: Denies chest pain Respiratory/Chest Respiratory/Chest: Denies cough or dyspnea Gastrointestinal Gastrointestinal: Denies abdominal pain, nausea or vomiting Musculoskeletal Musculoskeletal: Denies back pain or extremity pain Integumentary Denies Abrasions or rash Allergic/Immunologic Allergic/Immunologic ED: Denies lip swelling or urticaria EXAM Physical Exam Const Vital Signs: 11/05/23 16:22 Temperature 97.8 F Temperature Source Temporal Pulse Rate 84 Respiratory Rate 16 Blood Pressure 129/79 H Blood Pressure Mean 95 Pulse Ox 99 Oxygen Delivery Method Room Air Positive well nourished and well developed General Appearance ED: well developed HEENT HEENT Narrative: Intraoral examination reveals tenderness to the right third molar on the mandibular surface. Minimal surrounding gum edema. Posterior pharynx is normal. No trismus. No evidence of Evangelist's angina. Eyes EOMs intact bilaterally Neck no lymphadenopathy Chest Wall inspection of chest normal and palpation of chest normal Resp normal respiratory effort and clear to auscultation bilaterally Cardio regular rate and regular rhythm GI non-tender Palpation: soft Psych mental status grossly normal Skin no rashes or lesions noted MDM MDM MDM Narrative Medical decision making narrative: Patient has focal tenderness that is reproducible with palpation over the right third molar on the mandibular surface. She will treat with clindamycin as she does have a penicillin allergy. I will also write her for naproxen. She will follow-up with her dentist in 3 days as scheduled. Discharge Plan Triage Chief Complaint: Dental ED Provider: Shima Welsh Dx/Rx/DC Orders Clinical Impression: Odontalgia Instructions: ED Dental Pain Prescriptions: New naproxen [Naprosyn] 500 mg tablet 500 mg PO BID PRN (Reason: pain) Qty: 20 0RF clindamycin HCl 150 mg capsule 300 mg PO 4X/DAY Qty: 80 0RF No Action NK Primary Care Provider: Care Physician,No Primary Referrals: Care Physician,No Primary [Primary Care Provider] - Activity Restrictions/Additio nal Instructions: Follow-up your dentist on as scheduled. Disposition Disposition: Home, Self Care What to do if you have Problems For any increased pain, shortness of breath, bleeding, nausea or vomiting, chest pain, or any unexpected problems, contact your Primary Care Provider. Call [facility] ([phone]) or report to the closest Emergency Room. Call 911 if necessary. 11/05/232045 Cosigner Signature (if applicable): CC: No Primary Care Physician Signed Normal [facility] Emergency Department Summary on 08-26-2023 Emergency Department Summary [facility] Medical Records Department [address] [place] [address] Emergency Department Summary 08/26/23 MR#: [id number] Acct: [id number] Name: RAYMOND BROWNLEE Rep #: [id number] : 2000 23 From: Maryann GNOZALEZ PCP: Care Physician,No Primary Status:DEP ER Location: ED HPI History of Present Illness Chief Complaint: Ear Problem Narrative Narrative: 23-year-old female has had 2 days of isolated right ear pain. She has no fever, chills, headache, cough or congestion, or sore throat. No trauma. PFSH PFSH Medical History Non-smoker Home Medications NK 07/27/22 [History Last Taken Unknown] Allergy/AdvReac Type Severity Reaction Status Date / Time amoxicillin Allergy Rash Verified 08/26/23 16:26 Penicillins Allergy Rash Verified 08/26/23 16:26 vancomycin Allergy Rash Verified 08/26/23 16:26 metoclopramide [From Reglan] AdvReac Other Verified 08/26/23 16:26 Surgical History History of laparoscopic cholecystectomy Social History Smoking Status: Never smoker substance use type: does not use ROS ROS ED ROS Narrative Constitutional: Negative for fever, chills, malaise. ENT: Positive for ear pain. Negative for sore throat, rhinorrhea. Respiratory: Negative for shortness of breath, cough. Neuro: Negative for headache. EXAM Physical Exam Narrative Exam Narrative: CONST: Patient sitting in no acute distress. EYES: Normal inspection. ENT: Normal inspection, moist mucous membranes. Normal dentition without tenderness, no periapical abscess, no trismus or tongue elevation, normal posterior oropharynx, nares clear, normal external ears and canals, normal TMs bilaterally. No perforation or drainage. NECK: Normal inspection. No meningismus RESP: No respiratory distress, CTAB. CVS: Regular rate and rhythm, no murmur, no gallop. SKIN: Color normal, no rash, warm, dry, intact. EXTREMITIES: Normal appearance, no pedal edema. NEURO: Oriented x4. PSYCH: Normal affect. Const Vital Signs: 08/26/23 16:25 Temperature 96.8 F L Temperature Source Temporal Pulse Rate 81 Respiratory Rate 16 Blood Pressure 138/92 H Blood Pressure Mean 107 Pulse Ox 99 Oxygen Delivery Method Room Air Physical Exam Const Vital Signs: 08/26/23 16:25 Temperature 96.8 F L Temperature Source Temporal Pulse Rate 81 Respiratory Rate 16 Blood Pressure 138/92 H Blood Pressure Mean 107 Pulse Ox 99 Oxygen Delivery Method Room Air MDM MDM MDM Narrative Medical decision making narrative: Patient has 2 days of isolated right ear pain. She appears well and nontoxic. Afebrile with normal vital signs. Her HEENT exam is completely normal. There is no signs of otitis externa, media, or mastoiditis. She has no pain with movement of the jaw. She has no signs of dental caries or abscess or Evangelist's angina. Normal posterior oropharynx. I discussed she should take [id number] analgesia and be reevaluated if symptoms change or worsen. She declined Toradol or ibuprofen here and was discharged in stable condition. MDM MDM Narrative Medical decision making narrative: Patient has 2 days of isolated right ear pain. She appears well and nontoxic. Afebrile with normal vital signs. Her HEENT exam is completely normal. There is no signs of otitis externa, media, or mastoiditis. She has no pain with movement of the jaw. She has no signs of dental caries or abscess or Evangelist's angina. Normal posterior oropharynx. I discussed she should take [id number] analgesia and be reevaluated if symptoms change or worsen. She declined Toradol or ibuprofen here and was discharged in stable condition. I have personally performed a face to face assessment of the patient and have reviewed the MARYJO Note. I performed a substantive portion of the visit including all aspects of the following. My springer findings include: History is 23-year-old female reports right ear pain since yesterday. She notes a atraumatic frontal temporal headache since that time. She states that the forehead and maxillary region feel somewhat uncomfortable. She denies any fever or sore throat. No significant congestion or cough. No rashes. There is no muscle weakness seizures visual changes or speech changes. Exam is I see no rashes. The ear canal appears normal. Tympanic membranes appear normal bilaterally. No mastoid tenderness. No evidence of facial nerve palsy. Medical Decison Making patient was advised to be on the look out for any evidence of facial droop or rash. I am not seeing evidence of otitis externa or media. I do not see evidence of mastoiditis. Would recommend supportive care follow-up with primary car (more content not included)... Normal [facility] UA DIP, URINE (POC)on 2022 BILIRUBIN UA (POCT) Negative Negative [facility] CLARITY UA (POCT) [facility] COLOR UA (POCT) Yellow [facility] GLUCOSE UA (POCT) Negative Negative mg/dL [facility] HEMOGLOBIN/BLOOD UA (POCT) Large Abnormal Negative [facility] KETONE UA (POCT) Negative Negative mg/dL [facility] LEUKOCYTES UA (POCT) Small Abnormal Negative [facility] NITRITE UA (POCT) Positive Abnormal Negative [facility] PH UA (POCT) 6.0 4.5 - 8.0 [facility] Protein Ql (U) 30 mg/dL Abnormal Negative mg/dL [facility] SPECIFIC GRAVITY UA (POCT) 1.025 1.005 - 1.030 [facility] UROBILINOGEN UA (POCT) 0.2 E.U./dL Normal E.U./ dL [facility] STREP A MOLECULAR (POC)on Procedural Control Valid [facility] Strep A (POCT) Negative Negative [facility] Absolute lymphocyte countOrd ered By: Dr. Rico on 10-01-2022 Lymphocytes Auto (Unsp spec) [#/Vol] 2.31 10*3/uL 0.83-4.51 [facility] Basophil percentageOrdered B y: Dr. Rico on 10-01-2022 Basophil percentage 0-5 SEEN /hpf 0-5 [facility] Basophils/100 WBC (Bld) 0.4 % 0-1 [facility] Chloride [Moles/Vol] 108 mmol/L 98-107 [facility] Eosinophils/100 WBC (Bld) 1.3 % 0-5 [facility] Glucose [Mass/Vol] 74 mg/dL 74-106 [facility] Neutrophils (Bld) [#/Vol] 6.3 10*3/uL 2.0-7.7 [facility] Neutrophils/100 WBC (Bld) 65.6 % 47-70 [facility] Potassium [Moles/Vol] 3.5 mmol/L 3.5-5.1 [facility] Sodium [Moles/Vol] 140 mmol/L 136-145 [facility] WBC (Bld) [#/Vol] 9.6 10*3/uL 4.4-11.0 [facility] Beta hCG serum qualOrdered B y: Dr. Rico on 10-01-2022 Beta HCG ( test) Ql Negative [facility] Bilirubin Test strip Ql (U)O rdered By: Dr. Rico on 10-01-2022 Bilirubin Ql (U) Negative Negative [facility] Blood erythrocytes count (nu mber/volume)Ordered By: Dr. Rico on 10-01-2022 RBC (Bld) [#/Vol] 4.58 10*6/uL 4.2-5.4 [facility] Blood hemoglobin measurement (mass/volume)Ordered By: Dr. Rico on 10-01-2022 Hemoglobin (Bld) [Mass/Vol] 12.7 g/dL 12.0-15.0 [facility] Blood lymphocytes/100 leukoc ytesOrdered By: Dr. Rico on 10-01-2022 Lymphocytes/100 WBC (Bld) 24.1 % 19-41 [facility] Blood monocytes/100 leukocyt esOrdered By: Dr. Rico on 10-01-2022 Monocytes/100 WBC (Bld) 8.2 % 0-10 [facility] Blood platelet mean volumeOr dered By: Dr. Rico on 10-01-2022 Platelet mean volume (Bld) [Entitic vol] 10.8 fL 6.2-12.0 [facility] Determination of erythrocyte mean corpuscular volume (MCV)Ordered By: Dr. Rico on 10-01-2022 MCV (RBC) [Entitic vol] 86.0 fL 81-99 [facility] Hematocrit Auto (Bld) [Volum e fraction]Ordered By: Dr. Rico on 10-01-2022 Hematocrit (Bld) [Volume fraction] 39.4 % 37-47 [facility] Influenza virus A and B and SARS-CoV-2 (COVID-19) Ag panel - Upper respiratory specimOrdered By: Dr. Rico on 10-01-2022 SARS-CoV-2 (COVID-19) RNA LANNY+probe Ql (Resp) [facility] Ketones Test strip Ql (U)Ord ered By: Dr. Rico on 10-01-2022 Ketones Ql (U) Negative Negative [facility] Laboratory - Chemistry and C hemistry - challengeOrdered By: Dr. Rico on 10-01-2022 CO2 [Moles/Vol] 25.0 mmol/L 21.0-32.0 [facility] Urea nitrogen/Creatinine [Mass ratio] 21.3 mg/mg 10-20 [facility] Laboratory - Hematology and Cell countsOrdered By: Dr. Rico on 10-01-2022 Erythrocyte distribution width (RBC) [Entitic vol] 39.8 fL 35.1-43.9 [facility] Erythrocyte distribution width (RBC) [Ratio] 12.8 % 11.6-14.6 [facility] Immature granulocytes/100 WBC (Bld) 0.400 % 0.0-0.9 [facility] Comment on above: IG% - Immature Granu locytes (promyelocytes, myelocytes and metamyelocytes) > 1% indicates that a LEFT SHIFT is Present. MCH (RBC) [Entitic mass] 27.7 pg 27.0-32.0 [facility] Nucleated RBC/100 WBC (Bld) [Ratio] 0 % 0-5 [facility] MCHC Auto (RBC) [Mass/Vol]Or dered By: Dr. Rico on 10-01-2022 MCHC (RBC) [Mass/Vol] 32.2 g/dL 32-36 [facility] Mucus LM Ql (Urine sed)Order ed By: Dr. Rico on 10-01-2022 Mucus Ql (Urine sed) RARE /hpf [facility] Nitrite Test strip Ql (U)Ord ered By: Dr. Rico on 10-01-2022 Nitrite Ql (U) Negative Negative [facility] No Panel InformationOrdered By: Dr. Rico on 10-01-2022 Estimated Creatinine Clearance Calc 95.13 ml/min [facility] Estimated GFR (MDRD) Amer 133 mL/min >60 [facility] Comment on above: GFR Calc Estimated GFR (MDRD) Non-Af Amer 110 mL/min >60 [facility] Comment on above: Non- GFR Calc Platelets bldOrdered By: Dr. Rico on 10-01-2022 Platelets (Bld) [#/Vol] 260 10*3/uL 150-450 [facility] Protein Test strip Ql (U)Ord ered By: Dr. Rico on 10-01-2022 Protein Ql (U) Negative Negative [facility] Serum or plasma calcium yandel urement (mass/volume)Ordered By: Dr. Rico on 10-01-2022 Calcium [Mass/Vol] 8.6 mg/dL 8.5-10.1 [facility] Serum or plasma creatinine m easurement (mass/volume)Ordered By: Dr. Rico on 10-01-2022 Creatinine [Mass/Vol] 0.70 mg/dL 0.55-1.02 [facility] Comment on above: The validity of the calculated GFR & GFRAA in patients over 70 years has not been determined. Clinical correlation is essential. Serum or plasma urea nitroge n measurement (mass/volume)Ordered By: Dr. Rico on 10-01-2022 Urea nitrogen [Mass/Vol] 15 mg/dL 7-18 [facility] Squamous epithelial cells de tection in urine sediment by light microscopyOrdered By: Dr. Rico on 10-01-2022 Epithelial cells.squamous LM Ql (Urine sed) 5-10 SEEN /hpf 5-10 [facility] Thin prep Papanicolaou smear with manual screeningOrdered By: Dr. Rico on 10-01-2022 Thin prep Papanicolaou smear with manual screening 7 5-15 [facility] Urine blood detectionOrdered By: Dr. Rico on 10-01-2022 RBC Ql (U) Negative Negative [facility] RBC Ql (U) 0-5 SEEN /hpf 0-5 [facility] Urine clarityOrdered By: Dr. Rico on 10-01-2022 Clarity (U) Sl. Cloudy Clear [facility] Urine color determinationOrd ered By: Dr. Rico on 10-01-2022 Color (U) Straw Yellow [facility] Urine glucose detectionOrder ed By: Dr. Rico on 10-01-2022 Glucose Ql (U) Normal mg/dl Normal [facility] Urine leukocyte esterase det ection by dipstickOrdered By: Dr. Rico on 10-01-2022 Leukocyte esterase Test strip Ql (U) 25 /ul Negative [facility] Urine pHOrdered By: Dr. Carole celis on 10-01-2022 pH (U) 6.5 [pH] 5.0 - 8.0 [facility] Urine sediment bacteria coun t by microscopy (number/high power field)Ordered By: Dr. Rico on 10-01-2022 Bacteria LM.HPF (Urine sed) [#/Area] RARE /hpf None Seen [facility] Urine specific gravity measu rementOrdered By: Dr. Rico on 10-01-2022 Specific gravity (U) [Rel density] 1.015 1.002-1.030 [facility] Urobilinogen Auto test strip Ql (U)Ordered By: Dr. Rico on 10-01-2022 Urobilinogen Ql (U) Normal mg/dl Normal [facility] Influenza virus A and B RNA and SARS-CoV-2 (COVID-19) N gene panel LANNY+probe (Resp)on 08-12-2022 FLUAV RNA LANNY+probe Ql (Unsp spec) Negative Negative for Influenza A by RT-PCR [facility] FLUBV RNA LANNY+probe Ql (Unsp spec) Negative Negative for Influenza B by RT-PCR [facility] SARS-CoV-2 (COVID-19) RNA LANNY+probe Ql (Resp) SARS-CoV-2 (Agent of COVID-19) Not Detected by RT-PCR or equivalent method. Not Detected [facility] Basophil percentageOrdered B y: Benjamin Das on 08-03-2022 WBC (Bld) [#/Vol] 6.6 10*3/uL 4.4-11.0 [facility] Blood erythrocytes count (nu mber/volume)Ordered By: Benjamin Navarro on 08-03-2022 RBC (Bld) [#/Vol] 4.51 10*6/uL 4.2-5.4 [facility] Blood hemoglobin measurement (mass/volume)Ordered By: Benjamin Navarro on 08-03-2022 Hemoglobin (Bld) [Mass/Vol] 12.7 g/dL 12.0-15.0 [facility] Blood platelet mean volumeOr dered By: Benjamin Das on 08-03-2022 Platelet mean volume (Bld) [Entitic vol] 11.1 fL 6.2-12.0 [facility] Determination of erythrocyte mean corpuscular volume (MCV)Ordered By: Benjamin Mcclainosh on 08-03-2022 MCV (RBC) [Entitic vol] 82.7 fL 81-99 [facility] Hematocrit Auto (Bld) [Volum e fraction]Ordered By: Benjamin Das on 08-03-2022 Hematocrit (Bld) [Volume fraction] 37.3 % 37-47 [facility] Laboratory - Chemistry and C hemistry - challengeOrdered By: Dr. Larson on 08-03-2022 HCG ( test) Ql (U) Negative [facility] Comment on above: Very dilute urine sp ecimens, as indicated by a low specificgravity, may not contain veterans employment representative levels of hCG. If is still suspected, a first morning urinespecimen should be collected 48 hours later and tested. Laboratory - Hematology and Cell countsOrdered By: Benjamin Das on 08-03-2022 Erythrocyte distribution width (RBC) [Entitic vol] 45.7 fL 35.1-43.9 [facility] Erythrocyte distribution width (RBC) [Ratio] 15.0 % 11.6-14.6 [facility] MCH (RBC) [Entitic mass] 28.2 pg 27.0-32.0 [facility] MCHC Auto (RBC) [Mass/Vol]Or dered By: Benjamin Das on 08-03-2022 MCHC (RBC) [Mass/Vol] 34.0 g/dL 32-36 [facility] Platelets bldOrdered By: Benjamin Das on 08-03-2022 Platelets (Bld) [#/Vol] 262 10*3/uL 150-450 [facility] Influenza virus A and B and SARS-CoV-2 (COVID-19) Ag panel - Upper respiratory specimOrdered By: Dr. Fields on 06-08-2022 SARS-CoV-2 (COVID-19) RNA LANNY+probe Ql (Resp) [facility] RSV Ag EIAOrdered By: Dr. Javier vanessa on 06-08-2022 RSV Ag Immune stain Ql (Tiss) [facility] URINE OB DIP B/Oon 2 Glucose Ql (U) Negative Neg mg/dL [facility] Protein.monoclonal (U) [Mass/Vol] trace Neg mg/dL [facility] URINE OB DIP B/Oon 2 Glucose Ql (U) Negative Neg mg/dL [facility] Protein.monoclonal (U) [Mass/Vol] Negative Neg mg/dL [facility] URINE OB DIP B/Oon 2 Glucose Ql (U) Negative Neg mg/dL [facility] Protein.monoclonal (U) [Mass/Vol] Negative Neg mg/dL [facility] URINE OB DIP B/Oon 2 Glucose Ql (U) Negative Neg mg/dL [facility] Protein.monoclonal (U) [Mass/Vol] Negative Neg mg/dL [facility] OBSTETRIC ULTRASOUND WHIon 0 04-11-2022 [facility] MRI FETUS/PLACENTA WO IVCONo n 03-24-2022 [facility] URINE OB DIP B/Oon 2 Glucose Ql (U) Negative Neg mg/dL [facility] Protein.monoclonal (U) [Mass/Vol] Negative Neg mg/dL [facility] OBSTETRIC ULTRASOUND WHIon 0 02-22-2022 [facility] URINE OB DIP B/Oon 2 Glucose Ql (U) Negative Neg mg/dL [facility] Protein.monoclonal (U) [Mass/Vol] Negative Neg mg/dL [facility] URINE OB DIP B/Oon 2 Glucose Ql (U) Negative Neg mg/dL [facility] Protein.monoclonal (U) [Mass/Vol] Negative Neg mg/dL [facility] URINE OB DIP B/Oon 2 Glucose Ql (U) Negative Neg mg/dL [facility] Protein.monoclonal (U) [Mass/Vol] Negative Neg mg/dL [facility] Provider Note - ED v3on 03-3 Provider Note - ED v3 Provider Note: Chart Review: ED NOTES ED NOTES: History of Present Illness: 21-year-old G3, P2 at approximately 13 weeks presents with concern for vomiting. Present over the past 24 hours. Daughter had similar symptoms over the past 48 hours. States there have been multiple episodes. Nonbloody and nonbilious. Denies any abdominal pain, vaginal bleeding, vaginal discharge, urinary symptoms. Past Medical History: None Past surgical History: Noncontributory Family history: Reviewed and not pertinent to complaint Social history: Denies any drugs, alcohol, tobacco abuse. REVIEW OF SYSTEMS: Pertinent negatives and positives noted in the HPI. Otherwise, a complete review of system was negative. PHYSICAL EXAM: Appearance: Alert, oriented , cooperative, in no acute distress. Skin: Intact, dry skin, no lesions, rash, petechiae or purpura. HENT: Normocephalic, atraumatic. Nares patent. No intraoral lesions. Neck: Supple, without meningismus. Trachea at midline. No lymphadenopathy. Pulmonary: Clear bilaterally with good chest wall excursion. No rales, rhonchi or wheezing. No accessory muscle use or stridor. Cardiac: Regular rate and rhythm, no rubs, murmurs, or gallops. No JVD, Carotids without bruits. Abdomen: Abdomen is soft, nontender, and nondistended. No palpable organomegaly. No rebound or guarding. No CVA tenderness. Nonsurgical abdomen Genitourinary: Exam deferred. Musculoskeletal: Pulses full and equal. No cyanosis, clubbing, or edema. Psychiatric: Appropriate mood and affect. HISTORY OF PRESENTING ILLNESS RAYMOND is a 21 year old Female and was seen by me at 09-Nov-2021 03:22 for a chief complaint of vomiting (PT TO ED WITH C/O N/V X 24 HOURS AND ABD PAIN WITH VOMITING. PT REPORTS MY DAUGHTER JUST HAD THIS PT IS 13 WKS , G-3, P-2, A-0.)(1). Triage Information: Most recent Vital Sign Value Date Temp (F): 99.3 11-09-2021 03:23 Temp (C): 37.3 11-09-2021 03:23 Heart Rate (beats/min): 109 11-09-2021 03:23 Respirations (breaths/min): 20 11-09-2021 03:23 SpO2 (%): 96 11-09-2021 03:23 BP Systolic (mm Hg): 117 11-09-2021 03:23 BP Diastolic (mm Hg): 82 11-09-2021 03:23 PAST MEDICAL HISTORY ALLERGIES/INTOLERANC ES: Allergy Allergen: amoxicillin Type: Drug Reaction: Rash Allergen: Reglan Type: Drug Reaction: Other HEALTH HISTORY: No documented data. OUTPATIENT MEDICATIONS: Home Medications Review Status for Reconciliation: N/A Med Status: Patient Currently Takes Medications Drug Name: Tylenol 325 mg oral tablet Instructions: 2 tab(s) orally every 4 hours, As Needed SIGNIFICANT EVENTS: No documented data. CRITICAL CARE RESULTS: Recent Lab Results: I have reviewed these laboratory results: Urinalysis with Culture if Indicated 09-Nov-2021 03:42:00 ResultValue Color, Urine Yellow Reference Range: STRAW,YELLOW Appearance, Urine HAZY Specific [place], Urine 1.019 pH, Urine 5.0 Protein, Urine 30(1+) A Glucose, Urine NEGATIVE Blood, Urine NEGATIVE Ketones, Urine 80(2+) A Bilirubin, Urine NEGATIVE Urobilinogen, Urine <2.0 Nitrite, Urine Negative Leukocyte Esterase, Urine NEGATIVE Urinalysis, Microscopic 09-Nov-2021 03:42:00 ResultValue White Cells 6 A WBC Clumps OCC Red Blood Cells 1 Epithelial Cells, Squamous 10 Bacteria, Urine 1+ A Mucous 2+ Hyaline Casts 2+ A Amorphous Crystals 1+ VITAL SIGNS: T PRBP SpO2O2(LPM) %FiO2 Method 09-Nov-2021 04:00:[id number]/ 96 room air, no respiratory support 09-Nov-2021 03:23:[id number] 96 room air, no respiratory support 09-Nov-2021 03:15:[id number] 96 room air, no respiratory support [facility] MDM/ED COURSE: Patient appears well and nontoxic. No abdominal pain. Treated with zofran and fluids. Re-evaluation at 0435 and she is resting comfortably. Blood pressure borderline. Patient states this is her baseline. Treated with another 1 L. Will be given zofran for home and asked to follow up with OBGYN. Stable at time of discharge. DISPOSITION Diagnosis/Annotation : ED Dx Name:Vomiting during Code:O21.9 Disposition: discharged Type: home CONSULT CRITICAL CARE TIME Is this a critically ill patient: no Electronic Signatures: Primitivo Bauer) (Signed 09-Nov-2021 04:50) Authored: ED Notes, HPI, PMH, PE, Results/Vital Signs, MDM/ED Course, Clinical Impression, Attestation, Chart Review, Scores Last Updated: 09-Nov-2021 04:50 by Primitivo Bauer () References: 1. Data Referenced From Triage - ED 09-Nov-2021 03:23 Normal [facility] Risk Screen - Adult Emergenc yon 11-09-2021 Risk Screen - Adult Emergency Preferred Language: Preferred Language: Preferred Language for Discussing Health Care (patient/designee)En [facility] Advanced Directives: Advance Directive/DNRno Family Violence Adult: Abuse Screen: Are you or have you been threatened or abused physically, emotionally, or sexually by anyoneno Learning Assessment (Patient): Learning Assessment (Patient): Patient is Able to be Assessed for Learningyes Factors Influencing Readiness to Learnacuteness of illness; interest in learning Factors that Impact Ability to Learnnone Devices/Methods Used to Communicatenone Learning Preferencesverbal instruction; written material Cultural Considerationsnone Developmental Considerationsnone Orthodoxy Considerationsnone Learning Assessment (Other Learner): Learning Assessment (Other Learner): Other learner availableno Pressure Injury/TB/Substance: Pressure Injury: Do you have a coughno Smoking Statusnever smoker Alcohol Usedenies Drug Usedenies Drug 2 Usedenies Admission Risk Screen: Significant IndicatorsComplete CAGE: CAGE: Is this an injured patient at a Trauma Center ([facility] [place]): no Electronic Signatures: Li Paredes (RN) (Signed 09-Nov-2021 03:29) Authored: Preferred Language, Advanced Directives, Family Violence Adult, Learning Assessment (Patient), Learning Assessment (Other Learner), Pressure Injury/TB/Substance, Pressure Injury, CAGE Last Updated: 09-Nov-2021 03:29 by Li Paredes (RN) [facility] Triage - EDon 11-09-2021 Triage - ED Quick Triage: Are You yes Have You Given In The Last 6 Weeksno Are You Currently Breastfeedingno The patient and/or guardian verbally acknowledges placement for services into the following (when Urgent Care Service hours are operating):emergency department Chart Review: PRIMARY ASSESSMENT RAYMOND BROWNLEE's primary assessment is Within Defined Limits. The airway is open and patent. Breathing spontaneous and unlabored with clear breath sounds bilaterally. Circulation is normal with good peripheral pulses. Skin is warm and dry and color is normal for race. ARRIVAL INFORMATION Means of Arrival: Ambulatory Mode of Arrival: private vehicle Arrival From: home Accompanied By: self Language: Spoken Language Preferred: Gabonese Reading Language Preferred: Gabonese Home Energy Consultant Requested: no electrical controls engineer was requested MDRO: History of MDRO: no Present on Arrival: Device Present on Arrival to ED: no CHIEF COMPLAINT RAYMOND BROWNLEE is a Female patient with a chief complaint of vomiting (PT TO ED WITH C/O N/V X 24 HOURS AND ABD PAIN WITH VOMITING. PT REPORTS MY DAUGHTER JUST HAD THIS PT IS 13 WKS , G-3, P-2, A-0.). Triage Date/Time: 09-Nov-2021 03:15 LILLIAM: 3 Pain Rating (0-10): 7 = Severe Pain location: ABD Vital Signs: Temperature: 99.3F ( 37.3C) taken oral Blood Pressure: 117/82 Mean: Heart Rate: 109 Respiratory Rate: 20 Pulse Oximetry: 96% on room air, no respiratory support. Height: 5 feet 1.00 inches. 154.9 CM Weight: 191.8 pounds. Calculated 87.0 kg. (scale measurement) Calculated BMI (kg/m2): 36.259 Calculated BSA (m2) 1.93 [place] Coma Scale: Best Eye Response: (E4) spontaneous Best Motor Response: (M6) obeys commands Best Verbal Response: (V5) oriented Chipley Score: 15 Cough lasting greater than 3 weeks: no Patient immunocompromised related to: N/A Allergies: yes Last menstrual period: 06-Aug-2021 MICROSTRATEGY DEVELOPER History: Patient has homicidal thoughts: no Symptoms Are POSITIVE For: nausea and vomiting. Symptoms Are Negative For: anorexia, constipation, diaphoresis, diarrhea, distention, fever and rectal blood. Last Known Well: unknown Risk Screens Suicide Risk Screen In the Past Month: Have you wished you were or wished you could go to sleep and not wake up no In the Past Month: Have you had any actual thoughts of killing yourself no In Your Lifetime: Have you ever done anything, started to do anything, or prepared to do anything to end your life no Tsai Fall Scale Screening Has the patient fallen before (or is the patient in the ED as a result of a fall) has not had a fall Does the patient have an impaired gait does not have impaired gait Is the patient cognitively impaired not cognitively impaired Interventions: Tsai Fall Interventions: LOW INTERVENTIONS: *patient oriented to surroundings and call system, * patient/family falls education completed and documented, *patients fall status communicated during bedside handoff, *whiteboard updated, *mode of toileting discussed with patient, *bed in low position with brakes locked, *call light in reach, * non-skid footwear PAST MEDICAL HISTORY Immunization History: Last Known Tetanus Immunization: Unknown TRAVEL HISTORY Travel History Coronavirus Screening: positive for symptoms Travel Exposure History: NO travel to International locations in the past 30 days PAIN Pain Scale Used: NAKIA Pain Rating (0-10): 7 = Severe Past Medical History: Past Medical History Reviewedyes Electronic Signatures: Li Paredes (RN) (Signed 09-Nov-2021 03:27) Entered: Risk Screens, Pain, Arrival, ABCD, Immunizations, Travel History, Chart Review, Scores, Past Medical History Authored: Quick Triage, Risk Screens, Pain, Arrival, ABCD, Immunizations, Travel History, Chart Review, Scores, Past Medical History Last Updated: 09-Nov-2021 03:27 by Li Paredes (ARNOL) Normal [facility] UA MICROSCOPICon 11-09-2021 AMORPHOUS CRYSTAL 1+ /HPF Normal [facility] Comment on above: Performed By: #### U AMIC #### [address] [address] BACTERIA 1+ /HPF Abnormal [facility] Comment on above: Performed By: #### U AMIC #### [address] [address] HYALINE CAST 2+ /LPF Abnormal [facility] Comment on above: Performed By: #### U AMIC #### [address] [address] Mucus Ql (Urine sed) 2+ /LPF Normal [facility] Comment on above: Performed By: #### U AMIC #### [address] [address] RBC 1 /HPF Normal 0-5 [facility] Comment on above: Performed By: #### U AMIC #### [place] [address] SQUAMOUS EPITH. CELLS 10 /HPF Normal [facility] Comment on above: Performed By: #### U AMIC #### [place] [id number] WBC 6 /HPF Abnormal 0-5 [facility] Comment on above: Performed By: #### U AMIC #### [place] [address] WBC CLUMPS OCC Normal [facility] Comment on above: Performed By: #### U AMIC #### [place] [address] URINALYSIS WITH CULTURE IF I NDICATEDon 11-09-2021 Appearance (U) HAZY Normal CLEAR [facility] Comment on above: Performed By: #### U ARFX #### [address] [address] Bilirubin Ql (U) Negative Normal NEGATIVE [facility] Comment on above: Performed By: #### U ARFX #### [address] [address] Color (U) Yellow Normal STRAW,YELLOW [facility] Comment on above: Performed By: #### U ARFX #### [address] [address] Glucose Ql (U) Negative Normal NEGATIVE [facility] Comment on above: Performed By: #### U ARFX #### [address] [address] Hemoglobin Ql (U) Negative Normal NEGATIVE [facility] Comment on above: Performed By: #### U ARFX #### [place] [id number] Ketones Ql (U) 80(2+) Abnormal NEGATIVE [facility] Comment on above: Performed By: #### U ARFX #### [address] [address] Leukocyte esterase Test strip Ql (U) Negative Normal NEGATIVE [facility] Comment on above: Performed By: #### U ARFX #### [place] [id number] Nitrite Ql (U) Negative Normal NEGATIVE [facility] Comment on above: Performed By: #### U ARFX #### [place] [id number] pH (U) 5.0 [pH] Normal 5.0 - 8.0 [facility] Comment on above: Performed By: #### U ARFX #### [place] [address] Protein Ql (U) 30(1+) Abnormal NEGATIVE [facility] Comment on above: Performed By: #### U ARFX #### [place] [id number] Specific gravity (U) [Rel density] 1.019 Normal 1.005 - 1.035 [facility] Comment on above: Performed By: #### U ARFX #### [place] [id number] Urobilinogen (U) [Mass/Vol] mg/dL Normal 0.0 - 1.9 [facility] Comment on above: Performed By: #### U ARFX #### [place] [id number] URINE CULTURE,BACTERIALon URINE CULTURE,BACTERIAL PATIENT: RAYMOND BROWNLEE LOCATION: [facility] KIT#: [id number] : [birth year] AGE: SEX: F ORDERED BY: PRIMITIVO BAUER SOURCE: URINE COLLECTED: 11/09/21 03:42 ANTIBIOTICS AT [facility].: RECEIVED : 11/09/21 12:00 SITE: R E S U L T S URINE CULTURE,BACTERIAL FINAL 11/10/21 09:22 MIXED URETHRAL JUSTIN. Normal [facility] Comment on above: Performed By: #### U [facility] #### [facility] [address] [place] [address] ABO/RH GROUP TESTon 10-03-19 ABO TYPE A Normal [facility] Comment on above: Performed By: #### A VY #### [address] [address] RH TYPE Positive Normal [facility] Comment on above: Performed By: #### A VY #### [address] [address] BASIC METABOLIC PANELon 09-14 Anion gap [Moles/Vol] 10 mmol/L Normal 10 - 20 [facility] Comment on above: Performed By: #### B MP ####[address] [address] Calcium [Mass/Vol] 9.5 mg/dL Normal 8.6 - 10.3 [facility] Comment on above: Performed By: #### B MP ####[address] [address] Chloride [Moles/Vol] 105 mmol/L Normal 98 - 107 [facility] Comment on above: Performed By: #### B MP ####[address] [address] Creatinine [Mass/Vol] 0.59 mg/dL Normal 0.50 - 1.05 [facility] Comment on above: Performed By: #### B MP ####[address] [address] eGFR FEMALE >90 Normal >90 [facility] Comment on above: Result Comment: CALC ULATIONS OF ESTIMATED GFR ARE PERFORMED USING THE 2020 CKD-EPI STUDY REFIT EQUATION WITHOUT THE RACE VARIABLE FOR THE IDMS-TRACEABLE CREATININE METHODS. https://jasn.asnjournals.org/content//ASN.66118 [address] Performed By: #### B MP ####[address] [address] Glucose [Mass/Vol] 78 mg/dL Normal 74 - 99 [facility] Comment on above: Performed By: #### B MP ####[address] [address] HCO3 (Bld) [Moles/Vol] 26 mmol/L Normal 21 - 32 [facility] Comment on above: Performed By: #### B MP ####[address] [address] Potassium [Moles/Vol] 3.3 mmol/L Low 3.5 - 5.3 [facility] Comment on above: Performed By: #### B MP ####[place] [id number] Sodium [Moles/Vol] 138 mmol/L Normal 136 - 145 [facility] Comment on above: Performed By: #### B MP ####[place] [id number] Urea nitrogen [Mass/Vol] 5 mg/dL Low 6 - 23 [facility] Comment on above: Performed By: #### B MP ####[address] [address] CBC AND DIFFERENTIALon 10-03 Basophils (Bld) [#/Vol] 0.10 10*3/uL Normal 0.00 - 0.10 [facility] Comment on above: Performed By: #### C BCDF #### [address] [address] Basophils/100 WBC (Bld) 0.7 % Normal 0.0 - 2.0 [facility] Comment on above: Performed By: #### C BCDF #### [address] [address] Eosinophils (Bld) [#/Vol] 0.00 10*3/uL Normal 0.00 - 0.70 [facility] Comment on above: Performed By: #### C BCDF #### [address] [address] Eosinophils/100 WBC (Bld) 0.4 % Normal 0.0 - 6.0 [facility] Comment on above: Performed By: #### C BCDF #### [address] [address] Erythrocyte distribution width (RBC) [Ratio] 12.7 % Normal 11.5 - 14.5 [facility] Comment on above: Performed By: #### C BCDF #### [address] [address] Hematocrit (Bld) [Volume fraction] 43.6 % Normal 36.0 - 46.0 [facility] Comment on above: Performed By: #### C BCDF #### [address] [address] Hemoglobin (Bld) [Mass/Vol] 14.5 g/dL Normal 12.0 - 16.0 [facility] Comment on above: Performed By: #### C BCDF #### [address] [address] Lymphocytes (Bld) [#/Vol] 2.10 10*3/uL Normal 1.20 - 4.80 [facility] Comment on above: Performed By: #### C BCDF #### [address] [address] Lymphocytes/100 WBC (Bld) 22.9 % Normal 13.0 - 44.0 [facility] Comment on above: Performed By: #### C BCDF #### [address] [address] MCHC (RBC) [Mass/Vol] 33.1 g/dL Normal 32.0 - 36.0 [facility] Comment on above: Performed By: #### C BCDF #### [address] [address] MCV (RBC) [Entitic vol] 84 fL Normal 80 - 100 [facility] Comment on above: Performed By: #### C BCDF #### [address] [address] Monocytes (Bld) [#/Vol] 0.50 10*3/uL Normal 0.10 - 1.00 [facility] Comment on above: Performed By: #### C BCDF #### [address] [address] Monocytes/100 WBC (Bld) 5.4 % Normal 2.0 - 10.0 [facility] Comment on above: Performed By: #### C BCDF #### [address] [address] Neutrophils (Bld) [#/Vol] 6.40 10*3/uL Normal 1.20 - 7.70 [facility] Comment on above: Result Comment: Perc ent differential counts (%) should be interpreted in the context of the absolute cell counts (cells/L). Performed By: #### C BCDF #### [address] [address] Neutrophils/100 WBC (Bld) 70.6 % Normal 40.0 - 80.0 [facility] Comment on above: Performed By: #### C BCDF #### [address] [address] NUCLEATED RBC 0.1 /100 WBC Normal [facility] Comment on above: Performed By: #### C BCDF #### [address] [address] Platelets (Bld) [#/Vol] 261 10*3/uL Normal 150 - 450 [facility] Comment on above: Performed By: #### C BCDF #### [address] [address] RBC 5.22 x10E12/L High 4.00 - 5.20 [facility] Comment on above: Performed By: #### C BCDF #### [address] [address] WBC (Bld) [#/Vol] 9.0 10*3/uL Normal 4.4 - 11.3 [facility] Comment on above: Performed By: #### C BCDF #### [address] [address] GC + CHLAMYDIA BY AMPLIFIED DETECTIONon 10-03-2021 CHLAMYDIA TRACH.,AMPLIFIED Not detected Normal NOT DETECTED [facility] Comment on above: Performed By: #### G [facility] ####[address] [address] N.GONORRHEA,AMPLIFIED Not detected Normal NOT DETECTED [facility] Comment on above: Performed By: #### G CCHA ####[address] [address] Lab Specimen Source Urine Normal [facility] Comment on above: Performed By: #### G [facility] ####[address] [address] HCG,BETA-QUANTITATIVEon 09-14 HCG,BETA-QUANTITATIVE 916084 mIU/mL Abnormal [facility] Comment on above: Result Comment: Low- level positive HCG results can be seen in early , in radha- or post-menopausal females due to normal pituitary HCG production, or with analytic interference. Repeat testing in 48-72 hours can aid in assessing for as results should double in this time period. FSH measurement is recommended in radha- or post-menopausal females as concurrent elevation of FSH can support pituitary production as the source of the HCG elevation. . Total HCG measurement is performed using the Jaime Niko Access Immunoassay which detects intact HCG and free beta HCG subunit. This test is not indicated for use as a tumor marker. HCG testing is performed using a different test methodology at [facility] than other [facility]. Direct result comparison should only be made within the same method. REF VALUES NON FEMALE <5 MALES <5 Performed By: #### H CGQU #### [place] [id number] HEPATIC FUNCTION PANELon Albumin [Mass/Vol] 4.3 g/dL Normal 3.4 - 5.0 [facility] Comment on above: Performed By: #### H EPFP #### [address] [address] ALP [Catalytic activity/Vol] 48 U/L Normal 33 - 110 [facility] Comment on above: Performed By: #### H EPFP #### [address] [address] ALT [Catalytic activity/Vol] 39 U/L Normal 7 - 45 [facility] Comment on above: Result Comment: Samina ents treated with Sulfasalazine may generate falsely decreased results for ALT. Performed By: #### H EPFP #### [address] [address] AST [Catalytic activity/Vol] 25 U/L Normal 9 - 39 [facility] Comment on above: Performed By: #### H EPFP #### [address] [address] Bilirubin [Mass/Vol] 0.7 mg/dL Normal 0.0 - 1.2 [facility] Comment on above: Performed By: #### H EPFP #### [address] [address] Bilirubin.indirect [Mass/Vol] 0.2 mg/dL Normal 0.0 - 0.3 [facility] Comment on above: Performed By: #### H EPFP #### [address] [address] Protein [Mass/Vol] 7.2 g/dL Normal 6.4 - 8.2 [facility] Comment on above: Performed By: #### H EPFP #### [place] [id number] Provider Note - ED v3on 09-14 Provider Note - ED v3 Provider Note: Chart Review: ED NOTES ED NOTES: ====HPI==== Patient is a 21-year-old female who presents to the emergency department with a chief complaint of abdominal cramping and vaginal discharge and . Patient states that 3 days ago she developed some abdominal cramping and bleeding. She states that she was evaluated at [place] emergency department in which she had a pelvic ultrasound at that time which showed a live IUP. She states that her abdominal cramping is worse, she reports that on both sides. Radiating to her back. She also reports that she has pain and burning with urination and urinary frequency. She denies any fever or chills. She is a G3, P2. PMHX: Denies PSHX: Cholecystectomy Social HX: Denies TOBACCO Denies ETOH Denies DRUGS ====Review of Systems==== 10 point system review is negative except for those specifically mentioned in history of present illness ====Physical Exam==== Constitutional/Gener al: Alert and oriented x3, well appearing, nontoxic, and in NAD. Head: Normocephalic and atraumatic. Eyes: PERRL, EOMI, conjunctive normal, sclera nonicteric, subconjunctival layer is pink. Mouth: Oropharynx clear, handling secretions, no trismus, no asymmetry of the posterior oropharynx or uvular edema Neck: Supple, full ROM, non tender to palpation in the midline, no stridor, no crepitus, no meningeal signs. Trachea at midline. Respiratory: Lungs clear to auscultation bilaterally, no wheezes, rales, or rhonchi, not in respiratory distress. Cardiovascular: Regular rate, regular rhythm, no murmurs, gallops, or rubs, 2+ distal pulses. Chest: normal chest wall movement GI: Abdomen soft, nontender, mild suprapubic tenderness, no organomegaly, no palpable masses, no rebound, guarding, or rigidity. : Patient deferred exam Musculoskeletal: Moves all extremities x4, warm and well perfused, no clubbing, cyanosis, or edema, cap refill <3 seconds Integument: Skin warm and dry, no rashes. Lymphatic: No lymphadenopathy noted. Neurologic: No focal deficits Psychiatric: Normal affect. ====ED Course and Medical Decision Making==== See MDM section for review of findings & plan of care. Portions of this note were dictated by speech recognition. An attempt at proof reading was made to minimize errors. Minor errors in vehicle painter may be present. Please call if questions.. HISTORY OF PRESENTING ILLNESS RAYMOND is a 21 year old Female and was seen by me at 03-Oct-2021 11:04 for a chief complaint of vaginal discharge ( - 7WK. Pt states that she developed craping and brown vaginal discharge. pt has 7/10 abdominal pain and radiated into lower back. Pt states she has burning and frequency while urinating.). Triage Information: Most recent Vital Sign Value Date Temp (F): 98.3 10-03-2021 11:27 Temp (C): 36.8 10-03-2021 11:27 Heart Rate (beats/min): 96 10-03-2021 11:27 Respirations (breaths/min): 19 10-03-2021 11:27 SpO2 (%): 98 10-03-2021 11:27 BP Systolic (mm Hg): 121 10-03-2021 11:27 BP Diastolic (mm Hg): 94 10-03-2021 11:27 PAST MEDICAL HISTORY ALLERGIES/INTOLERANC ES: Allergy Allergen: amoxicillin Type: Drug Reaction: Rash Allergen: Reglan Type: Drug Reaction: Other HEALTH HISTORY: No documented data. OUTPATIENT MEDICATIONS: Home Medications Review Status for Reconciliation: Complete Med Status: Patient Currently Takes Medications Drug Name: Tylenol 325 mg oral tablet Instructions: 2 tab(s) orally every 4 hours, As Needed SIGNIFICANT EVENTS: No documented data. CRITICAL CARE RESULTS: Recent Lab Results: I have reviewed these laboratory results: Hepatic Function Panel 03-Oct-2021 12:14:00 ResultValue Aspartate Transaminase, Serum 25 ALB 4.3 T Bili 0.7 Bilirubin, Serum Direct - Conjugated 0.2 ALKP 48 Alanine Aminotransferase, Serum 39 T Pro 7.2 Complete Blood Count + Differential 03-Oct-2021 12:14:00 ResultValue White Blood Cell Count 9.0 Nucleated Erythrocyte Count 0.1 Red Blood Cell Count 5.22 H HGB 14.5 HCT 43.6 MCV 84 MCHC 33.1 PLT 261 RDW-CV 12.7 Neutrophil % 70.6 Lymphocyte % 22.9 Monocyte % 5.4 Eosinophil % 0.4 Basophil % 0.7 Neutrophil Count 6.40 Lymphocyte Count 2.10 Monocyte Count 0.50 Eosinophil Count 0.00 Basophil Count 0.10 Basic Metabolic Panel 03-Oct-2021 12:14:00 ResultValue Glucose, Serum 78 NA 138 K 3.3 L CL 105 Bicarbonate, Serum 26 Anion Gap, Serum 10 BUN 5 L CREAT 0.59 GFR Female >90 Calcium, Serum 9.5 HCG, Beta Quantitative 03-Oct-2021 12:14:00 ResultValue HCG, Beta Quantitative [id number] A Urinalysis with Culture if Indicated 03-Oct-2021 12:10:00 ResultValue Color, Urine Yellow Reference Range: STRAW,YELLOW Appearance, Urine HAZY Specific [place], Urine 1.017 pH, Urine 5.0 Protein, Urine NEGATIVE Glucose, Urine NEGATIVE Blood, Urine NEGATI (more content not included)... Normal [facility] TRANS VAG PREG UTERUSon 09-14 TRANS VAG PREG UTERUS STUDY: Obstetrical Ultrasound; Completed Time: 10/03/2021 13:05 INDICATION: Abdominal pain. Vaginal discharge. Additional History: LMP 08/06/2021. . COMPARISON: None available. ACCESSION NUMBER(S): [id number] ORDERING CLINICIAN: FRANCESCA SIERRA PA-C TECHNIQUE: Transvaginal ultrasonography of the pelvis was performed with spectral Doppler evaluation of the ovaries. FINDINGS: Intrauterine gestation with crown-rump length measurement of 1.4 cm and heart rate of 157 beats/min is demonstrated, correlating with gestational age of 7 weeks 4 days. Yolk sac is visualized. A small subchorionic hematoma is visualized posterior to the gestational sac. UTERUS: Uterus demonstrates normal echogenicity and architecture without focal lesion and measures 8.7 x 6.2 x 9.0 cm. Cervical os is closed. RIGHT OVARY: Right ovary is not visualized. LEFT OVARY: Left ovary measures 3.1 x 2.3 x 2.6 cm. Presumed corpus luteal cyst is visualized measuring 1.5 x 1.2 x 1.5 cm. Spectral Doppler evaluation of the ovary was performed. Normal color and spectral Doppler flow is visualized. OTHER: No significant fluid is present within the cul-de-sac. IMPRESSION: Live intrauterine gestation measures 7 weeks 4 days by crown-rump length. heart rate is 157 beats/min. LOC is May 18, 2022 by CRL. Signed by Iglesia Crawford DO Electronically signed by: LAURA CRAWFORD DO Normal [facility] URINALYSIS WITH CULTURE IF I NDICATEDon 10-03-2021 Appearance (U) HAZY Normal CLEAR [facility] Comment on above: Performed By: #### U ARFX #### [address] [address] Bilirubin Ql (U) Negative Normal NEGATIVE [facility] Comment on above: Performed By: #### U ARFX #### [address] [address] Color (U) Yellow Normal STRAW,YELLOW [facility] Comment on above: Performed By: #### U ARFX #### [address] [address] Glucose Ql (U) Negative Normal NEGATIVE [facility] Comment on above: Performed By: #### U ARFX #### [address] [address] Hemoglobin Ql (U) Negative Normal NEGATIVE [facility] Comment on above: Performed By: #### U ARFX #### [place] [address] Ketones Ql (U) 80(2+) Abnormal NEGATIVE [facility] Comment on above: Performed By: #### U ARFX #### [place] [id number] Leukocyte esterase Test strip Ql (U) Negative Normal NEGATIVE [facility] Comment on above: Performed By: #### U ARFX #### [place] [address] Nitrite Ql (U) Negative Normal NEGATIVE [facility] Comment on above: Performed By: #### U ARFX #### [place] [address] pH (U) 5.0 [pH] Normal 5.0 - 8.0 [facility] Comment on above: Performed By: #### U ARFX #### [place] [address] Protein Ql (U) Negative Normal NEGATIVE [facility] Comment on above: Performed By: #### U ARFX #### [place] [address] Specific gravity (U) [Rel density] 1.017 Normal 1.005 - 1.035 [facility] Comment on above: Performed By: #### U ARFX #### [address] [address] Urobilinogen (U) [Mass/Vol] mg/dL Normal 0.0 - 1.9 [facility] Comment on above: Performed By: #### U ARFX #### [place] [id number] .GFRon 05-22-2021 GFR 111 ml/min/1.73sqm Normal [facility] ([place]) Comment on above: Result Comment: GFR Population mean for , Non- Americans Ages 20-29 = 116 mL/min/1.73 sq.m. Ages 30-39 = 107 mL/min/1.73 sq.m. Ages 40-49 = 99 mL/min/1.73 sq.m. Ages 50-59 = 93 mL/min/1.73 sq.m. Ages 60-69 = 85 mL/min/1.73 sq.m. Ages 70+ = 75 mL/min/1.73 sq.m. Chronic Kidney Disease: Less than 60 mL/min/1.73 square meters End Stage Renal Disease: Less than 15 mL/min/1.73 square meters Performed By: #### M G, LIPID, ADIFF, ANEU, GFR, CMP, CBC, PHOS #### [address] [address] GFR Non- 92 ml/min/1.73sqm Normal [facility] ([place]) Comment on above: Result Comment: GFR Population mean for , Non- Americans Ages 20-29 = 116 mL/min/1.73 sq.m. Ages 30-39 = 107 mL/min/1.73 sq.m. Ages 40-49 = 99 mL/min/1.73 sq.m. Ages 50-59 = 93 mL/min/1.73 sq.m. Ages 60-69 = 85 mL/min/1.73 sq.m. Ages 70+ = 75 mL/min/1.73 sq.m. Chronic Kidney Disease: Less than 60 mL/min/1.73 square meters End Stage Renal Disease: Less than 15 mL/min/1.73 square meters Performed By: #### M G, LIPID, ADIFF, ANEU, GFR, CMP, CBC, PHOS #### [address] [address] [facility] 05-22-2021 BUN/Creatinine Ratio 13 ratio Normal 7-27 [facility] ([place]) Comment on above: Performed By: #### M G, LIPID, ADIFF, ANEU, GFR, CMP, CBC, PHOS #### [address] [address] Calcium [Mass/Vol] 8.5 mg/dL Normal 8.4-10.2 [facility] ([place]) Comment on above: Performed By: #### M G, LIPID, ADIFF, ANEU, GFR, CMP, CBC, PHOS #### [address] [address] Chloride [Moles/Vol] 107 mmol/L Normal 98-107 [facility] ([place]) Comment on above: Performed By: #### M G, LIPID, ADIFF, ANEU, GFR, CMP, CBC, PHOS #### [address] [address] CO2 [Moles/Vol] 29 mmol/L Normal 22-29 [facility] ([place]) Comment on above: Performed By: #### M G, LIPID, ADIFF, ANEU, GFR, CMP, CBC, PHOS #### [address] [address] Creatinine [Mass/Vol] 0.79 mg/dL Normal 0.55-1.02 [facility] ([place]) Comment on above: Performed By: #### M G, LIPID, ADIFF, ANEU, GFR, CMP, CBC, PHOS #### [address] [address] Electrolyte Balance 8.0 mEq/L Normal Count includes the [facility] ([place]) Comment on above: Performed By: #### M G, LIPID, ADIFF, ANEU, GFR, CMP, CBC, PHOS #### [address] [address] Glucose [Mass/Vol] 94 mg/dL Normal 70-105 [facility] ([place]) Comment on above: Performed By: #### M G, LIPID, ADIFF, ANEU, GFR, CMP, CBC, PHOS #### [address] [address] Potassium [Moles/Vol] 3.7 mmol/L Normal 3.5-5.1 [facility] ([place]) Comment on above: Performed By: #### M G, LIPID, ADIFF, ANEU, GFR, CMP, CBC, PHOS #### [address] [address] Sodium [Moles/Vol] 144 mmol/L Normal 136-145 [facility] ([place]) Comment on above: Performed By: #### M G, LIPID, ADIFF, ANEU, GFR, CMP, CBC, PHOS #### [place] [id number] [place] [address] Urea nitrogen [Mass/Vol] 10 mg/dL Normal 7-18 [facility] ([place]) Comment on above: Performed By: #### M G, LIPID, ADIFF, ANEU, GFR, CMP, CBC, PHOS #### [facility] [address] [place] [address] ANGIOGRAPHY CHEST W/CONTR Diego 05-22-2021 CT ANGIOGRAPHY CHEST W/CONTRAST ORIGINAL EXAMINATION: CTA OF THE CHEST 05/21/2021 10:46 pm TECHNIQUE: CTA of the chest was performed after the administration of intravenous contrast. Multiplanar reformatted images are provided for review. MIP images are provided for review. Dose modulation, iterative reconstruction, and/or weight based adjustment of the mA/kV was utilized to reduce the radiation dose to as low as reasonably achievable. COMPARISON: Same day chest x-ray. HISTORY: ORDERING SYSTEM PROVIDED HISTORY: Reason for Exam: chest pain; suspect PE, elevated D-dimer FINDINGS: Pulmonary Arteries: Pulmonary arteries are adequately opacified for evaluation. No evidence of intraluminal filling defect to suggest pulmonary embolism. Main pulmonary artery is normal in caliber. Mediastinum: The heart is normal in size. No pericardial effusion. The great vessels are normal in course and caliber. There is no lymphadenopathy. Lungs/pleura: The lungs are without acute process. No focal consolidation or pulmonary edema. No evidence of pleural effusion or pneumothorax. Upper Abdomen: Limited images of the upper abdomen are unremarkable. Soft Tissues/Bones: No acute bone or soft tissue abnormality. IMPRESSION: No evidence of pulmonary embolism. No visible acute process. I have personally reviewed the images of this examination and agree with the resident's findings and interpretation. Interpreted by: Darci Hobson MD Preliminary Report By: Gold Tobin Electronically signed By Darci Hobson MD Dictated Date: 05/21/2021 10:50:00 PM Prelim Date: 05/21/2021 10:59:40 PM Sign Date: 05/21/2021 11:11:19 PM Ordering Provider: TRUDY STAPLES Count Includes [facility] ([place]) DIMERon 05-22-2021 D-Dimer 374 ng/mL D-DU High 0-230 [facility]) Comment on above: Result Comment: The result of the D-Dimer test should be evaluated in the context of all the clinical and laboratory data available. In those instances where the laboratory result does not agree with the clinical evaluation, additional tests should be performed accordingly. If the D-Dimer result is used to exclude DVT or PE, the recommended cutoff value is less than 230 ng/mL. The D-Dimer result should not be used alone to rule in DVT/PE, but should be used in conjunction with a clinical pretest probability (PTP)assessment model to exclude venous thromboembolism (VTE) in outpatients suspected of deep venous thrombosis (DVT) and pulmonary embolism (PE). Performed By: #### M G, LIPID, ADIFF, ANEU, GFR, CMP, CBC, PHOS #### [address] 05-22-2021 Troponin I High Sensitivity <4.0 Normal 0.0-51.4 [facility]) Comment on above: Performed By: #### M G, LIPID, ADIFF, ANEU, GFR, CMP, CBC, PHOS #### [place] [address] XR CHEST 2 VIEWSon 1 XR CHEST 2 VIEWS ORIGINAL EXAMINATION: TWO XRAY VIEWS OF THE CHEST 05/21/2021 9:55 pm COMPARISON: None. HISTORY: ORDERING SYSTEM PROVIDED HISTORY: Reason for Exam: Chest Pain, cough for 2 weeks FINDINGS: The cardiomediastinal silhouette is unremarkable. No consolidation, pleural effusion, vascular congestion or pneumothorax. No acute osseous abnormalities. IMPRESSION: No acute radiographic process. I have personally reviewed the images of this examination and agree with the resident's finding and interpretation. Interpreted by: Darci Lora MD Preliminary Report By: Gold Tobin Electronically signed By Darci Lora MD Dictated Date: 05/21/2021 9:59:22 PM Prelim Date: 05/21/2021 10:00:23 PM Sign Date: 05/21/2021 10:09:53 PM Ordering Provider: TRUDY STAPLES Normal [facility] ([place]) .Auto Diffon 05-21-2021 Basophil, Absolute 0.00 10 3/mcL Normal 0.00-0.19 [facility] ([place]) Comment on above: Performed By: #### M G, LIPID, ADIFF, ANEU, GFR, CMP, CBC, PHOS #### [address] [address] Basophils/100 WBC (Bld) 0.3 % Normal 0.0-2.5 [facility] ([place]) Comment on above: Performed By: #### M G, LIPID, ADIFF, ANEU, GFR, CMP, CBC, PHOS #### [address] [address] Eosinophil, Absolute 0.00 10 3/mcL Normal 0.00-0.40 A [facility] ([place]) Comment on above: Performed By: #### M G, LIPID, ADIFF, ANEU, GFR, CMP, CBC, PHOS #### [address] [address] Eosinophils/100 WBC (Bld) 0.5 % Normal 0.0-7.0 [facility] ([place]) Comment on above: Performed By: #### M G, LIPID, ADIFF, ANEU, GFR, CMP, CBC, PHOS #### [address] [address] Lymphocyte, Absolute 1.30 10 3/mcL Normal 0.77-3.85 A [facility] ([place]) Comment on above: Performed By: #### M G, LIPID, ADIFF, ANEU, GFR, CMP, CBC, PHOS #### [address] [address] Lymphocytes/100 WBC (Bld) 20.2 % Normal 10.0-50.0 [facility] ([place] Comment on above: Performed By: #### M G, LIPID, ADIFF, ANEU, GFR, CMP, CBC, PHOS #### [address] [address] Monocyte, Absolute 0.60 10 3/mcL Normal 0.15-1.00 [facility] ([place]) Comment on above: Performed By: #### M G, LIPID, ADIFF, ANEU, GFR, CMP, CBC, PHOS #### [place] [address] Monocytes/100 WBC (Bld) 9.1 % Normal 1.7-13.0 [facility] ([place]) Comment on above: Performed By: #### M G, LIPID, ADIFF, ANEU, GFR, CMP, CBC, PHOS #### [place] [address] Neutrophils/100 WBC (Bld) 69.9 % Normal 37.0-80.0 [facility] ([place]) Comment on above: Performed By: #### M G, LIPID, ADIFF, ANEU, GFR, CMP, CBC, PHOS #### [place] [address] .NEUABSon 05-21-2021 Neutrophil, Absolute 4.60 10 3/mcL Normal 2.85-6.16 [facility] ([place]) Comment on above: Performed By: #### M G, LIPID, ADIFF, ANEU, GFR, CMP, CBC, PHOS #### [place] [address] CBCon 05-21-2021 Erythrocyte distribution width (RBC) [Ratio] 14.7 % High 11.5-14.5 [facility] ([place]) Comment on above: Performed By: #### M G, LIPID, ADIFF, ANEU, GFR, CMP, CBC, PHOS #### [place] [address] Hematocrit (Bld) [Volume fraction] 38.4 % Normal 37.0-47.0 [facility] ([place] Comment on above: Performed By: #### M G, LIPID, ADIFF, ANEU, GFR, CMP, CBC, PHOS #### [place] [address] Hgb 12.9 G/dL Normal 12.0-16.0 [facility] ([place] Comment on above: Performed By: #### M G, LIPID, ADIFF, ANEU, GFR, CMP, CBC, PHOS #### [place] [address] MCH (RBC) [Entitic mass] 28.3 pg Normal 27.0-31.2 [facility] ([place] Comment on above: Performed By: #### M G, LIPID, ADIFF, ANEU, GFR, CMP, CBC, PHOS #### [place] [address] MCHC 33.7 G/dL Normal 33.0-37.0 [facility] ([place] Comment on above: Performed By: #### M G, LIPID, ADIFF, ANEU, GFR, CMP, CBC, PHOS #### [place] [address] MCV (RBC) [Entitic vol] 84.0 fL Normal 80.0-94.0 [facility] ([place] Comment on above: Performed By: #### M G, LIPID, ADIFF, ANEU, GFR, CMP, CBC, PHOS #### [place] [address] Platelet 204 10 3/mcL Normal 130-400 [facility] ([place] Comment on above: Performed By: #### M G, LIPID, ADIFF, ANEU, GFR, CMP, CBC, PHOS #### [place] [address] Platelet mean volume (Bld) [Entitic vol] 8.8 fL Normal 7.4-10.4 [facility] ([place] Comment on above: Performed By: #### M G, LIPID, ADIFF, ANEU, GFR, CMP, CBC, PHOS #### [place] [address] RBC 4.57 10 6/mcL Normal 4.20-5.40 [facility] ([place]) Comment on above: Performed By: #### M G, LIPID, ADIFF, ANEU, GFR, CMP, CBC, PHOS #### [place] [address] WBC 6.50 10 3/mcL Normal 4.60-10.80 [facility] ([place]) Comment on above: Performed By: #### M G, LIPID, ADIFF, ANEU, GFR, CMP, CBC, PHOS #### [place] [address] Blood Gas, VenousOrdered By: Kaylee Pérez on 03-12-2021 Base Excess, Perez -1.5 mmol/L -3.0 - 3.0 mmol/L [facility] Work Phone: [phone] HCO3 (Bld) [Moles/Vol] 24.4 mmol/L 23.0 - 27.0 mmol/L [facility] Work Phone: [phone] Hemoglobin (Bld) [Mass/Vol] 14.2 g/dL ScreenOnly [facility] Work Phone: [phone] Oxygen saturation in Blood 74.5 % 60.0 - 80.0 % [facility] Work Phone: [phone] pCO2, [place] 45.3 mm[Hg] 40.0 - 55.0 mm[Hg] [facility] Work Phone: 1 pH, Perez 7.349 [facility] Work Phone: [phone] pO2, [place] 32.8 mm[Hg] 30.0 - 50.0 mm[Hg] [facility] Work Phone: [phone] (Calc), Perez 25.8 mmol/L 24.0 - 28.0 mmol/L [facility] Work Phone: [phone] Test Performed by [facility], [address] [place] [address] [facility] Work Phone: [phone] [facility] Work Phone: [phone] Blood Gas,Venouson 1 CO2 [Moles/Vol] 25.8 mmol/L Normal 24.0-28.[address] [facility] Comment on above: Performed By: #### T SGL #### [facility] [employer] HCO3 (Bld) [Moles/Vol] 24.4 mmol/L Normal 23.0-27.0 [facility] Comment on above: Performed By: #### T SGL #### [facility] [employer] Hemoglobin (Bld) [Mass/Vol] 14.2 g/dL Normal ScreenOnly [facility] [employer] [facility] Comment on above: Performed By: #### T SGL #### [facility] Oxygen (Bld) [Partial pressure] 32.8 mm[Hg] Normal 30.0-50.0 [facility] Comment on above: Performed By: #### T SGL #### [facility] Oxygen saturation in Blood 74.5 % Normal 60.0-80.0 [facility] Comment on above: Performed By: #### T SGL #### [facility] pCO2 45.3 mm[Hg] Normal 40.0-55.0 [facility] Comment on above: Performed By: #### T SGL #### [facility] pH 7.349 Normal 7.330-7.430 [facility] Comment on above: Performed By: #### T SGL #### [facility] [employer] St[employer] Base Excess -1.5 mmol/L Normal -3.0-3.[address] [facility] Comment on above: Performed By: #### T SGL #### [facility] CULTURE URINEon 03-11-2021 CULTURE URINE CULTURE URINE --> Status: F Normal urogenital justin present. Normal [facility] Comment on above: Performed By: #### T SGL #### [facility] Culture, UrineOrdered By: Sa juan carlos Gomes on 03-11-2021 Bacteria identified Cx Nom (U) Normal urogenital justin present. [facility] Work Phone: Test Performed by [facility], [address] [place] [address] Work Phone: [facility] Work Phone: Complete Urinalysison 2020 Appearance (U) Clear Normal Clear [facility] Comment on above: Result Comment: . Performed By: #### B GLU #### [place] [address] [place] [address] Bilirubin,Urine Negative Normal Negative [facility] Comment on above: Result Comment: . Performed By: #### B GLU #### [facility] [employer] [address] [place] [phone] Color (U) Yellow Normal Lt. Yellow [facility] Comment on above: Result Comment: . Performed By: #### B GLU #### [facility] [address] [place], [place] Glucose Ql (U) Normal Normal Normal (<70) [facility] Comment on above: Result Comment: . Performed By: #### B GLU #### [facility] [address] [place], [place] Ketone,Urine 10 mg/dL Abnormal Negative [facility] Comment on above: Result Comment: . Performed By: #### B GLU #### [place] [address] [address] [place], [place] Leukocytes,Urine Negative Normal Negative [facility] Comment on above: Result Comment: . Performed By: #### B GLU #### [place] [address] [address] [place], [place] Nitrites,Urine Negative Normal Negative [facility] Comment on above: Result Comment: . Performed By: #### B GLU #### [place] [address] [address] [place], [place] Occult Blood,Urine Negative Normal Negative [facility] Comment on above: Result Comment: . Performed By: #### B GLU #### [place] [address] [address] [place], [place] pH,Urine 7.0 Normal 5.0-8.0 [facility] Comment on above: Result Comment: . Performed By: #### B GLU #### [place] [address] [address] [place], [place] Specific [place],Urine 1.009 Normal 1.005 - 1.030 [facility] Comment on above: Result Comment: . Performed By: #### B GLU #### [place] [address] [address] [place], [place] Total Protein,Urine Negative Normal Negative [facility] Comment on above: Result Comment: . Performed By: #### B GLU #### [place] [address] [address] [place], [place] Urobilinogen,Urine Normal Normal Normal (0-1) [facility] Comment on above: Result Comment: . Performed By: #### B GLU #### [address] [address] MFM US Biophy w/o non- stresson 03-10-2021 MFM US Biophy w/o non-stress Patient Name: RAYMOND BROWNLEE Maternal Medicine ACCESSION EXAM DATE/TIME PROCEDURE ORDERING PROVIDER [id number] 03/10/2021 09:40 EDT M US Biophy w/o BETO CALLAHAN non-stress Reason For Exam (MFM US Biophy w/o non-stress) PPROM Report OBSTETRICS REPORT (Signed Final 03/10/2021 11:22 am) Patient Info ID #: [id number] : [birth year] (21 yrs) Name: RAYMOND BROWNLEE Visit Date: 03/10/2021 09:41 am Performed By Attending: Francesca López Location: Inpatient - [facility] DO, FACOG Performed By: Gina Hodges [facility] Visit Type: Inpatient - [facility] Referred By: SPIKE ANDERSON Service(s) Provided BPP w/out NST 500[address] Indications PPROM OLIGOHYDRAMNIOS Vital Signs Weight (lb): 178 Height: 5'8 BMI: 27.06 Evaluation Num Of Fetuses: 1 Heart Rate(bpm): 167 Cardiac Activity: Regular rhythm Lie: Longitudinal Presentation: Cephalic Placenta: Anterior Amniotic Fluid JUAN FV: Oligohydramnios JUAN Sum(cm) %Tile Largest Pocket(cm) 7 < 3 3.8 RUQ(cm) LUQ(cm) 3.8 3.2 Biophysical Evaluation Maternal Medicine Report -- Amniotic F.V: within normal limits F. Tone: Observed F. Movement: Observed Score: 8/8 F. Breathing: Observed Gestational Age Clinical LOC: 32w 1d LOC: 05/04/21 Best: 32w 1d Det. By: Clinical LOC LOC: 05/04/21 Anatomy ------- Stomach: Normal appearance Bladder: Normal appearance Impression - Quiñones live intrauterine at 32w 1d. - Subjectively low amniotic fluid, theamniotic fluid index measures 7 cm. - Reassuring BPP. Recommendations See inpatient chart. Ultrasound is not diagnostic of chromosomal aneuploidy and does not detect all subtle defects. Normal ultrasound findings do not guarantee normal outcomes. Francesca López DO, FACOG Electronically Signed Final Report 03/10/2021 11:22 am Final Dictated: 03/10/2021 9:41 am Dictating Physician: DO LÓPEZ KATHERINE BRIDGET Signed Date and Time: 03/10/2021 11:22 am Signed by: DO LÓPEZ KATHERINE BRIDGET Ultrasound ACCESSION EXAM DATE/TIME PROCEDURE ORDERING PROVIDER [id number] 03/10/2021 09:40 EDT MFM US Biophy w/o BETO CALLAHAN non-stress Reason For Exam (MFM US Biophy w/o non-stress) PPROM Report OBSTETRICS REPORT (Signed Final 03/10/2021 11:22 am) Patient Info ID #: [id number] : [birth year] (21 yrs) Name: RAYMOND BROWNLEE Visit Date: 03/10/2021 09:41 am Performed By Attending: Francesca López [facility] Ultrasound Report Performed By: Gina Hodges [facility] Visit Type: Inpatient - [facility] Referred By: SPIKE ANDERSON Service(s) Provided BPP w/out NST 80137 Indications PPROM OLIGOHYDRAMNIOS Vital Signs Weight (lb): 178 Height: 5'8 BMI: 27.06 Evaluation Num Of Fetuses: 1 Heart Rate(bpm): 167 Cardiac Activity: Regular rhythm Lie: Longitudinal Presentation: Cephalic Placenta: Anterior Amniotic Fluid JUAN FV: Oligohydramnios JUAN Sum(cm) %Tile Largest Pocket(cm) 7 < 3 3.8 RUQ(cm) LUQ(cm) 3.8 3.2 Biophysical Evaluation -- Amniotic F.V: within normal limits F. Tone: Observed F. Movement: Observed Score: 8/8 F. Breathing: Observed Gestational Age Clinical LOC: 32w 1d LOC: 05/04/21 Best: 32w 1d Det. By: Clinical LOC LOC: 05/04/21 Anatomy ------- Stomach: Normal appearance Bladder: Normal appearance Impression - Quiñones live intrauterine at 32w 1d. - Subjectively low amniotic fluid, theamniotic fluid index measures 7 cm. - Reassuring BPP. Recommendations See inpatient chart. Ultrasound is not diagnostic of chromosomal aneuploidy and does not detect all subtle defects. Normal ultrasound findings do not guarantee normal outcomes. Ultrasound Report Francesca López DO, FACOG Electronically Signed Final Report 03/10/2021 11:22 am Final Dictated: 03/10/2021 9:41 am Dictating Physician: DO LÓPEZ KATHERINE BRIDGET Signed Date and Time: 03/10/2021 11:22 am Signed by: DO LÓPEZ KATHERINE BRIDGET Normal [facility] RADIOLOGY REPORTOrdered By: Scanning on 03-10-2021 [facility] Work Phone: US BIOPHYSICAL PROFILE WO NON STRESS TESTINGOrdered By: Beto Callahan on 03-10-2021 Patient Name: RAYMOND BROWNLEE Maternal Medicine ACCESSION EXAM DATE/TIME PROCEDURE ORDERING PROVIDER [id number] 03/10/2021 09:40 EDT M US Biophy w/o BETO CALLAHAN non-stress Reason For Exam (MFM US Biophy w/o non-stress) PPROM Report OBSTETRICS REPORT (Signed Final 03/10/2021 11:22 am) Patient Info ID #: [id number] : [birth year] (21 yrs) Name: RAYMOND BROWNLEE Visit Date: 03/10/2021 09:41 am Performed By Attending: Francesca Lóepz Location: Inpatient - [facility] DO, FACOG Performed By: Gina Hodges [facility] Visit Type: Inpatient - [facility] Referred By: SPIKE ANDERSON Service(s) Provided BPP w/out NST 68067 Indications PPROM OLIGOHYDRAMNIOS Vital Signs Weight (lb): 178 Height: 5'8 BMI: 27.06 Evaluation Num Of Fetuses: 1 Heart Rate(bpm): 167 Cardiac Activity: Regular rhythm Lie: Longitudinal Presentation: Cephalic Placenta: Anterior Amniotic Fluid JUAN FV: Oligohydramnios JUAN Sum(cm) %Tile Largest Pocket(cm) 7 < 3 3.8 RUQ(cm) LUQ(cm) 3.8 3.2 Biophysical Evaluation Maternal Medicine Report -- Amniotic F.V: within normal limits F. Tone: Observed F. Movement: Observed Score: 8/8 F. Breathing: Observed Gestational Age Clinical LOC: 32w 1d LOC: 05/04/21 Best: 32w 1d Det. By: Clinical LOC LOC: 05/04/21 Anatomy ------- Stomach: Normal appearance Bladder: Normal appearance Impression - Quiñones live intrauterine at 32w 1d. - Subjectively low amniotic fluid, theamniotic fluid index measures 7 cm. - Reassuring BPP. Recommendations See inpatient chart. Ultrasound is not diagnostic of chromosomal aneuploidy and does not detect all subtle defects. Normal ultrasound findings do not guarantee normal outcomes. Francesca López DO, FACOG Electronically Signed Final Report 03/10/2021 11:22 am --- Final --- Dictated: 03/10/2021 9:41 am Dictating Physician: DO LÓPEZ KATHERINE BRIDGET Signed Date and Time: 03/10/2021 11:22 am Signed by: DO LÓPEZ KATHERINE BRIDGET Ultrasound ACCESSION EXAM DATE/TIME PROCEDURE ORDERING PROVIDER [id number] 03/10/2021 09:40 EDT MFM US Biophy w/o BETO CALLAHAN non-stress Reason For Exam (MFM US Biophy w/o non-stress) PPROM Report OBSTETRICS REPORT (Signed Final 03/10/2021 11:22 am) Patient Info ID #: [id number] : [birth year] (21 yrs) Name: RAYMOND BROWNLEE Visit Date: 03/10/2021 09:41 am Performed By Attending: Francesca López Location: Inpatient - [facility] Ultrasound Report Performed By: Gina Hodges [facility] Visit Type: Inpatient - [facility] Referred By: SPIKE ANDERSON Service(s) Provided BPP w/out NST 73917 Indications PPROM OLIGOHYDRAMNIOS Vital Signs Weight (lb): 178 Height: 5'8 BMI: 27.06 Evaluation Num Of Fetuses: 1 Heart Rate(bpm): 167 Cardiac Activity: Regular rhythm Lie: Longitudinal Presentation: Cephalic Placenta: Anterior Amniotic Fluid JUAN FV: Oligohydramnios JUAN Sum(cm) %Tile Largest Pocket(cm) 7 < 3 3.8 RUQ(cm) LUQ(cm) 3.8 3.2 Biophysical Evaluation -- Amniotic F.V: within normal limits F. Tone: Observed F. Movement: Observed Score: 8/8 F. Breathing: Observed Gestational Age Clinical LOC: 32w 1d LOC: 05/04/21 Best: 32w 1d Det. By: Clinical LOC LOC: 05/04/21 Anatomy ------- Stomach: Normal appearance Bladder: Normal appearance Impression - Quiñones live intrauterine at 32w 1d. - Subjectively low amniotic fluid, theamniotic fluid index measures 7 cm. - Reassuring BPP. Recommendations See inpatient chart. Ultrasound is not diagnostic of chromosom (more content not included)... [place] Work Phone: [facility] Incoming Radiology Results From [facility] - 03/10/2021 11:22 AM EDT Patient Name: RAYMOND BROWNLEE Maternal Medicine ACCESSION EXAM DATE/TIME PROCEDURE ORDERING PROVIDER [id number] 03/10/2021 09:40 EDT MFM US Biophy w/o BETO CALLAHAN non-stress Reason For Exam (MFM US Biophy w/o non-stress) PPROM Report OBSTETRICS REPORT (Signed Final 03/10/2021 11:22 am) Patient Info ID #: [id number] : [birth year] (21 yrs) Name: RAYMOND BROWNLEE Visit Date: 03/10/2021 09:41 am Performed By Attending: Francesca López Location: Inpatient - [facility] DO, FACOG Performed By: Gina Hodges [facility] Visit Type: Inpatient - [facility] Referred By: SPIKE ANDERSON Service(s) Provided BPP w/out NST 75509 Indications PPROM OLIGOHYDRAMNIOS Vital Signs Weight (lb): 178 Height: 5'8 BMI: 27.06 Evaluation Num Of Fetuses: 1 Heart Rate(bpm): 167 Cardiac Activity: Regular rhythm Lie: Longitudinal Presentation: Cephalic Placenta: Anterior Amniotic Fluid JUAN FV: Oligohydramnios JUAN Sum(cm) %Tile Largest Pocket(cm) 7 < 3 3.8 RUQ(cm) LUQ(cm) 3.8 3.2 Biophysical Evaluation Maternal Medicine Report -- Amniotic F.V: within normal limits F. Tone: Observed F. Movement: Observed Score: 8/8 F. Breathing: Observed Gestational Age Clinical LOC: 32w 1d LOC: 05/04/21 Best: 32w 1d Det. By: Clinical LOC LOC: 05/04/21 Anatomy ------- Stomach: Normal appearance Bladder: Normal appearance Impression - Quiñones live intrauterine at 32w 1d. - Subjectively low amniotic fluid, theamniotic fluid index measures 7 cm. - Reassuring BPP. Recommendations See inpatient chart. Ultrasound is not diagnostic of chromosomal aneuploidy and does not detect all subtle defects. Normal ultrasound findings do not guarantee normal outcomes. Francesca López DO, FACOG Electronically Signed Final Report 03/10/2021 11:22 am --- Final --- Dictated: 03/10/2021 9:41 am Dictating Physician: DO LÓPEZ KATHERINE BRIDGET Signed Date and Time: 03/10/2021 11:22 am Signed by: DO LÓPEZ KATHERINE BRIDGET Ultrasound ACCESSION EXAM DATE/TIME PROCEDURE ORDERING PROVIDER [id number] 03/10/2021 09:40 EDT [facility] US Biophy w/o BETO CALLAHAN non-stress Reason For Exam (M US Biophy w/o non-stress) PPROM Report OBSTETRICS REPORT (Signed Final 03/10/2021 11:22 am) Patient Info ID #: [id number] : [birth year] (21 yrs) Name: RAYMOND BROWNLEE Visit Date: 03/10/2021 09:41 am Performed By Attending: Francesca López Location: Inpatient - [facility] DO, [facility] Ultrasound Report Performed By: Gina Hodges [facility] Visit Type: Inpatient - [facility] Referred By: SPIKE ANDERSON Service(s) Provided BPP w/out NST 72091 Indications PPROM OLIGOHYDRAMNIOS Vital Signs Weight (lb): 178 Height: 5'8 BMI: 27.06 Evaluation Num Of Fetuses: 1 Heart Rate(bpm): 167 Cardiac Activity: Regular rhythm Lie: Longitudinal Presentation: Cephalic Placenta: Anterior Amniotic Fluid JUAN FV: Oligohydramnios JUAN Sum(cm) %Tile Largest Pocket(cm) 7 < 3 3.8 RUQ(cm) LUQ(cm) 3.8 3.2 Biophysical Evaluation -- Amniotic F.V: within normal limits F. Tone: Observed F. Movement: Observed Score: 8/8 F. Breathing: Observed Gestational Age Clinical OLC: 32w 1d LOC: 05/04/21 Best: 32w 1d Det. By: Clinical LOC LOC: 05/04/21 Anatomy ------- Stomach: Normal appearance Bladder: Normal appearance Impression - Quiñones live intrauterine at 32w 1d. - Subjectively low amniotic fluid, theamniotic fluid index measures 7 cm. - Reassuring BPP. Recommendations See inpatient chart. Ultrasound is not diagnostic of chromosomal aneuploidy and does not detect all subtle defects. Normal ultrasound findings do not guarantee normal outcomes. Ultrasound Report Francesca López DO, FACOG Electronically Signed Final Report 03/10/2021 11:22 am --- Final --- Dictated: 03/10/2021 9:41 am Dictating Physician: DO LÓPEZ KATHERINE BRIDGET Signed Date and Time: 03/10/2021 11:22 am Signed by: DO LÓPEZ KATHERINE BRIDGET [employer] Work Phone: [phone] [facility] Work Phone: [phone] UrinalysisOrdered By: Felix Gomes on 03-10-2021 Appearance (U) Clear Clear NA [employer] Work Phone: [phone] Comment on above: . Bilirubin Urine Negative Negative mg/dL [facility] Work Phone: [phone] Comment on above: . Color (U) Yellow Lt. Yellow NA [facility] Work Phone: [phone] Comment on above: . Glucose, Ur Normal Normal (<70) mg/dL [facility] Work Phone: [phone] Comment on above: . Interpretation and review of laboratory results Abnormal [facility] Work Phone: [phone] Ketones Ql (U) 10 mg/dL Abnormal Negative [facility] Work Phone: [phone] Comment on above: . LEUKOCYTES, UA Negative Negative Venkatesh/uL [facility] Work Phone: [phone] Comment on above: . Nitrite, Urine Negative Negative NA [facility] Work Phone: [phone] Comment on above: . Occult Blood,Urine Negative Negative mg/dL [facility] Work Phone: [phone] Comment on above: . pH (U) 7.0 [pH] [facility] Work Phone: [phone] Comment on above: . Specific [place], Urine 1.009 [facility] Work Phone: [phone] Comment on above: . Total Protein, Urine Negative Negative mg/dL [facility] Work Phone: [phone] Comment on above: . Urobilinogen, Urine Normal Normal ( 0-1) mg/dL [facility] Work Phone: [phone] Comment on above: . Test Performed by [facility], [address] [place] [address] [facility] Work Phone: [phone] [facility] Work Phone: [phone] TS GELon 2021 TS GEL ABO Group: A Rh, Gel: POS Antibody Screen Gel: NEG Normal [facility] Comment on above: Performed By: #### B GLU #### [facility] [address] [place] [id number] TYPE AND SCREENOrdered By: Ramesh Green on 2021 ABO Grouping A [facility] Work Phone: Rh Type Positive [facility] Work Phone: [phone] Test Performed by [facility], [address] [place] [address] [facility] Work Phone: [phone] [facility] Work Phone: MFM US Biophy w/o non- stresson 03-07-2021 MFM US Biophy w/o non-stress Patient Name: RAYMOND BROWNLEE Maternal Medicine ACCESSION EXAM DATE/TIME PROCEDURE ORDERING PROVIDER [id number] 03/07/2021 08:40 EDT [facility] US Biophy w/o BETO CALLAHAN non-stress Reason For Exam (MFM US Biophy w/o non-stress) PPROM, Oligohydramnios Report OBSTETRICS REPORT (Signed Final 03/07/2021 12:21 pm) Patient Info ID #: [id number] : [birth year] (20 yrs) Name: RAYMOND BROWNLEE Visit Date: 03/07/2021 08:32 am Performed By Attending: Francesca López Referred By: SPIKE ANDERSON DO, FACOG Performed By: Norma Wallace Visit Type: Inpatient - [facility] Service(s) Provided BPP w/out NST 88020 Indications PPROM OLIGOHYDRAMNIOS Vital Signs Weight (lb): 178 Height: 5'8 BMI: 27.06 Evaluation Num Of Fetuses: 1 Heart Rate(bpm): 142 Cardiac Activity: Regular rhythm Lie: Longitudinal Presentation: Cephalic Placenta: Anterior Amniotic Fluid JUAN FV: Oligohydramnios JUAN Sum(cm) %Tile Largest Pocket(cm) 4.5 < 3 1.9 RUQ(cm) RLQ(cm) LUQ(cm) LLQ(cm) 0 1.6 1 1.9 Comment: No 2x2 pocket Biophysical Evaluation Maternal Medicine Report -- Amniotic F.V: oligohydramnios F. Tone: Observed F. Movement: Observed N.S.T: Reactive F. Breathing: Observed Score: 8/10 Gestational Age Clinical LOC: 31w 5d LOC: 05/04/21 Best: 31w 5d Det. By: Clinical LOC LOC: 05/04/21 Impression - Quiñones live intrauterine at 31w 5d with known PPROM. - Oligohydramnios. - Reassuring BPP. Recommendations See inpatient chart. Ultrasound is not diagnostic of chromosomal aneuploidy and does not detect all subtle defects. Normal ultrasound findings do not guarantee normal outcomes. Francesca López DO, FACOG Electronically Signed Final Report 03/07/2021 12:21 pm Final Dictated: 03/07/2021 8:32 am Dictating Physician: DO LÓPEZ KATHERINE BRIDGET Signed Date and Time: 03/07/2021 12:21 pm Signed by: DO LÓPEZ KATHERINE BRIDGET Ultrasound ACCESSION EXAM DATE/TIME PROCEDURE ORDERING PROVIDER [id number] 03/07/2021 08:40 EDT [facility] US Biophy w/o BETO CALLAHAN non-stress Reason For Exam (M US Biophy w/o non-stress) PPROM, Oligohydramnios Report OBSTETRICS REPORT (Signed Final 03/07/2021 12:21 pm) Patient Info ID #: [id number] : [birth year] (20 yrs) Name: RAYMOND BROWNLEE Visit Date: 03/07/2021 08:32 am Performed By Attending: Francesca López Referred By: SPIKE ANDERSON DO FACOG Performed By: Norma Wallace Visit Type: Inpatient - [facility] Service(s) Provided Ultrasound Report BPP w/out NST 63807 Indications PPROM OLIGOHYDRAMNIOS Vital Signs Weight (lb): 178 Height: 5'8 BMI: 27.06 Evaluation Num Of Fetuses: 1 Heart Rate(bpm): 142 Cardiac Activity: Regular rhythm Lie: Longitudinal Presentation: Cephalic Placenta: Anterior Amniotic Fluid JUAN FV: Oligohydramnios JUAN Sum(cm) %Tile Largest Pocket(cm) 4.5 < 3 1.9 RUQ(cm) RLQ(cm) LUQ(cm) LLQ(cm) 0 1.6 1 1.9 Comment: No 2x2 pocket Biophysical Evaluation -- Amniotic F.V: oligohydramnios F. Tone: Observed F. Movement: Observed N.S.T: Reactive F. Breathing: Observed Score: 8/10 Gestational Age Clinical LOC: 31w 5d LOC: 05/04/21 Best: 31w 5d Det. By: Clinical LOC LOC: 05/04/21 Impression - Quiñones live intrauterine at 31w 5d with known PPROM. - Oligohydramnios. - Reassuring BPP. Recommendations See inpatient chart. Ultrasound is not diagnostic of chromosomal aneuploidy and does not detect all subtle defects. Normal ultrasound findings do not guarantee normal outcomes. Francesca López DO, FACOG Ultrasound Report Electronically Signed Final Report 03/07/2021 12:21 pm Final Dictated: 03/07/2021 8:32 am Dictating Physician: DO LÓPEZ KATHERINE BRIDGET Signed Date and Time: 03/07/2021 12:21 pm Signed by: DO LÓPEZ KATHERINE BRIDGET [facility] US BIOPHYSICAL PROFILE WO NON STRESS TESTINGOrdered By: Beto Callahan on 03-07-2021 Patient Name: RAYMOND BROWNLEE Maternal Medicine ACCESSION EXAM DATE/TIME PROCEDURE ORDERING PROVIDER [id number] 03/07/2021 08:40 EDT [facility] US Biophy w/o BETO CALLAHAN non-stress Reason For Exam ([facility]FM US Biophy w/o non-stress) PPROM, Oligohydramnios Report OBSTETRICS REPORT (Signed Final 03/07/2021 12:21 pm) Patient Info ID #: [id number] : [birth year] (20 yrs) Name: RAYMOND BROWNLEE Visit Date: 03/07/2021 08:32 am Performed By Attending: Francesca López Referred By: SPIKE ANDERSON DO, FACOG Performed By: Norma Wallace [facility] Service(s) Provided BPP w/out NST 80425 Indications PPROM OLIGOHYDRAMNIOS Vital Signs Weight (lb): 178 Height: 5'8 BMI: 27.06 Evaluation Num Of Fetuses: 1 Heart Rate(bpm): 142 Cardiac Activity: Regular rhythm Lie: Longitudinal Presentation: Cephalic Placenta: Anterior Amniotic Fluid JUAN FV: Oligohydramnios JUAN Sum(cm) %Tile Largest Pocket(cm) 4.5 < 3 1.9 RUQ(cm) RLQ(cm) LUQ(cm) LLQ(cm) 0 1.6 1 1.9 Comment: No 2x2 pocket Biophysical Evaluation Maternal Medicine Report -- Amniotic F.V: oligohydramnios F. Tone: Observed F. Movement: Observed N.S.T: Reactive F. Breathing: Observed Score: 8/10 Gestational Age Clinical LOC: 31w 5d LOC: 05/04/21 Best: 31w 5d Det. By: Clinical LOC LOC: 05/04/21 Impression - Quiñones live intrauterine at 31w 5d with known PPROM. - Oligohydramnios. - Reassuring BPP. Recommendations See inpatient chart. Ultrasound is not diagnostic of chromosomal aneuploidy and does not detect all subtle defects. Normal ultrasound findings do not guarantee normal outcomes. Francesca López DO, FACOG Electronically Signed Final Report 03/07/2021 12:21 pm --- Final --- Dictated: 03/07/2021 8:32 am Dictating Physician: DO LÓPEZ KATHERINE BRIDGET Signed Date and Time: 03/07/2021 12:21 pm Signed by: DO LÓPEZ KATHERINE BRIDGET Ultrasound ACCESSION EXAM DATE/TIME PROCEDURE ORDERING PROVIDER [id number] 03/07/2021 08:40 EDT [facility] US Biophy w/o BETO CALLAHAN non-stress Reason For Exam (MFM US Biophy w/o non-stress) PPROM, Oligohydramnios Report OBSTETRICS REPORT (Signed Final 03/07/2021 12:21 pm) Patient Info ID #: [id number] : [birth year] (20 yrs) Name: RAYMOND BROWNLEE Visit Date: 03/07/2021 08:32 am Performed By Attending: Francesca López Referred By: SPIKE ANDERSON DO, FACOG Performed By: Norma Wallace Visit Type: Inpatient - [facility] Service(s) Provided Ultrasound Report BPP w/out NST 87793 Indications PPROM OLIGOHYDRAMNIOS Vital Signs Weight (lb): 178 Height: 5'8 BMI: 27.06 Evaluation Num Of Fetuses: 1 Heart Rate(bpm): 142 Cardiac Activity: Regular rhythm Lie: Longitudinal Presentation: Cephalic Placenta: Anterior Amniotic Fluid JUAN FV: Oligohydramnios JUAN Sum(cm) %Tile Largest Pocket(cm) 4.5 < 3 1.9 RUQ(cm) RLQ(cm) LUQ(cm) LLQ(cm) 0 1.6 1 1.9 Comment: No 2x2 pocket Biophysical Evaluation -- Amniotic F.V: oligohydramnios F. Tone: Observed F. Movement: Observed N.S.T: Reactive F. Breathing: Observed Score: 8/10 Gestational Age Clinical LOC: 31w 5d LOC: 05/04/21 Best: 31w 5d Det. By: Clinical LOC LOC: 05/04/21 Impression - Quiñones live intrauterine at 31w 5d with known PPROM. - Oligohydramnios. - Reassuring BPP. Recommendations See inpatient chart. Ultrasound is not diagnostic of chromosomal aneuploidy and does not detect all subtle defects. Normal ultrasound findings do not guarantee normal outco (more content not included)... [facility] Work Phone: [facility], [facility] Incoming Radiology Results From [facility] - 03/07/2021 12:21 PM EDT Patient Name: RAYMOND BROWNLEE Maternal Medicine ACCESSION EXAM DATE/TIME PROCEDURE ORDERING PROVIDER [id number] 03/07/2021 08:40 EDT [facility] US Biophy w/o RHINA CALLAHANLEY non-stress Reason For Exam (M US Biophy w/o non-stress) PPROM, Oligohydramnios Report OBSTETRICS REPORT (Signed Final 03/07/2021 12:21 pm) Patient Info ID #: [id number] : [birth year] (20 yrs) Name: RAYMOND BROWNLEE Visit Date: 03/07/2021 08:32 am Performed By Attending: Francesca López Referred By: SPIKE ANDERSON DO FACOG Performed By: Norma Wallace Visit Type: Inpatient - [facility] Service(s) Provided BPP w/out NST 77756 Indications PPROM OLIGOHYDRAMNIOS Vital Signs Weight (lb): 178 Height: 5'8 BMI: 27.06 Evaluation Num Of Fetuses: 1 Heart Rate(bpm): 142 Cardiac Activity: Regular rhythm Lie: Longitudinal Presentation: Cephalic Placenta: Anterior Amniotic Fluid JUAN FV: Oligohydramnios JUAN Sum(cm) %Tile Largest Pocket(cm) 4.5 < 3 1.9 RUQ(cm) RLQ(cm) LUQ(cm) LLQ(cm) 0 1.6 1 1.9 Comment: No 2x2 pocket Biophysical Evaluation Maternal Medicine Report -- Amniotic F.V: oligohydramnios F. Tone: Observed F. Movement: Observed N.S.T: Reactive F. Breathing: Observed Score: 8/10 Gestational Age Clinical LOC: 31w 5d LOC: 05/04/21 Best: 31w 5d Det. By: Clinical LOC LOC: 05/04/21 Impression - Quiñones live intrauterine at 31w 5d with known PPROM. - Oligohydramnios. - Reassuring BPP. Recommendations See inpatient chart. Ultrasound is not diagnostic of chromosomal aneuploidy and does not detect all subtle defects. Normal ultrasound findings do not guarantee normal outcomes. Francesca López DO, FACOG Electronically Signed Final Report 03/07/2021 12:21 pm --- Final --- Dictated: 03/07/2021 8:32 am Dictating Physician: DO LÓPEZ KATHERINE BRIDGET Signed Date and Time: 03/07/2021 12:21 pm Signed by: DO LÓPEZ KATHERINE BRIDGET Ultrasound ACCESSION EXAM DATE/TIME PROCEDURE ORDERING PROVIDER [id number] 03/07/2021 08:40 EDT M US Biophy w/o BETO CALLAHAN non-stress Reason For Exam (MFM US Biophy w/o non-stress) PPROM, Oligohydramnios Report OBSTETRICS REPORT (Signed Final 03/07/2021 12:21 pm) Patient Info ID #: [id number] : [birth year] (20 yrs) Name: RAYMOND BROWNLEE Visit Date: 03/07/2021 08:32 am Performed By Attending: Francesca López Referred By: SPIKE ANDERSON DO, FACOG Performed By: Norma Wallace Visit Type: Inpatient - [facility] Service(s) Provided Ultrasound Report BPP w/out NST 50763 Indications PPROM OLIGOHYDRAMNIOS Vital Signs Weight (lb): 178 Height: 5'8 BMI: 27.06 Evaluation Num Of Fetuses: 1 Heart Rate(bpm): 142 Cardiac Activity: Regular rhythm Lie: Longitudinal Presentation: Cephalic Placenta: Anterior Amniotic Fluid JUAN FV: Oligohydramnios JUAN Sum(cm) %Tile Largest Pocket(cm) 4.5 < 3 1.9 RUQ(cm) RLQ(cm) LUQ(cm) LLQ(cm) 0 1.6 1 1.9 Comment: No 2x2 pocket Biophysical Evaluation -- Amniotic F.V: oligohydramnios F. Tone: Observed F. Movement: Observed N.S.T: Reactive F. Breathing: Observed Score: 8/10 Gestational Age Clinical LOC: 31w 5d LOC: 05/04/21 Best: 31w 5d Det. By: Clinical LOC LOC: 05/04/21 Impression - Quiñones live intrauterine at 31w 5d with known PPROM. - Oligohydramnios. - Reassuring BPP. Recommendations See inpatient chart. Ultrasound is not diagnostic of chromosomal aneuploidy and does not detect all subtle defects. Normal ultrasound findings do not guarantee normal outcomes. Francesca López DO, FACOG Ultrasound Report Electronically Signed Final Report 03/07/2021 12:21 pm --- Final --- Dictated: 03/07/2021 8:32 am Dictating Physician: DO LÓPEZ KATHERINE BRIDGET Signed Date and Time: 03/07/2021 12:21 pm Signed by: DO LÓPEZ KATHERINE BRIDGET [facility] Work Phone: [phone] [facility] Work Phone: [phone] TS GELon 03-06-2021 TS GEL ABO Group: A Rh, Gel: POS Antibody Screen Gel: NEG Normal [facility] [employer] Comment on above: Performed By: #### T SGL #### [facility] TYPE AND SCREENOrdered By: Antonio Pace on 03-06-2021 ABO Grouping A [facility] Work Phone: [phone] Type Positive [facility] Work Phone: [phone] Performed by [facility], [address] [place] [address] [facility] Work Phone: [phone] [facility] Work Phone: [phone] MFM US Biophy w/o non- stresson 03-03-2021 MFM US Biophy w/o non-stress Patient Name: RAYMOND BROWNLEE Maternal Medicine ACCESSION EXAM DATE/TIME PROCEDURE ORDERING PROVIDER [id number] 03/03/2021 07:49 EDT [facility] US Biophy w/o BETO CALLAHAN non-stress Reason For Exam (M US Biophy w/o non-stress) PPROM Report OBSTETRICS REPORT (Signed Final 03/03/2021 11:22 am) Patient Info ID #: [id number] : [birth year] (20 yrs) Name: RAYMOND BROWNLEE Visit Date: 03/03/2021 07:51 am Performed By Attending: Rohit Stein MD Location: Inpatient - [facility] Performed By: Gina Hodges [facility] Visit Type: Inpatient - [facility] Referred By: SPIKE ANDERSON Service(s) [place] [address] BPP w/out NST 53941 Indications Oligohydramnios PPROM Vital Signs Weight (lb): 178 Height: 5'8 BMI: 27.06 Evaluation Num Of Fetuses: 1 Heart Rate(bpm): 144 Cardiac Activity: Regular rhythm Lie: Longitudinal Presentation: Cephalic Placenta: Anterior grade 2 Amniotic Fluid JUAN FV: Oligohydramnios JUAN Sum(cm) %Tile Largest Pocket(cm) 4.6 < 3 2 RUQ(cm) RLQ(cm) LLQ(cm) 1.1 1.5 2 Comment: There is no 2 x 2cm pocket. Maternal Medicine Report Biophysical Evaluation -- Amniotic F.V: oligohydramnios F. Tone: Observed F. Movement: Observed Score: 6/8 F. Breathing: Observed Biometry -------- BPD: 78.7 mm G. Age: 31w 4d 53 % CI: 75.8 % 70 - 86 OFD: 103.8 mm FL/HC: 20.4 % 19.3 - 21.3 HC: 291.5 mm G. Age: 32w 1d 41 % HC/AC: 1.12 0.96 - 1.17 AC: 259.3 mm G. Age: 30w 1d 19 % FL/BPD: 75.6 % 71 - 87 FL: 59.5 mm G. Age: 31w 0d 33 % FL/AC: 22.9 % 20 - 24 LV: 6.95 mm Est. FW: 1621 gm 3 lb 9 oz 43 % Gestational Age Clinical LOC: 31w 1d LOC: 05/04/21 U/S Today: 31w 2d LOC: 05/03/21 Best: 31w 1d Det. By: Clinical LOC LOC: 05/04/21 Anatomy ------- Cranium: Normal appearance LVOT: Normal appearance Cavum: Normal appearance Aortic Arch: Suboptimal views Ventricles: Normal appearance Ductal Arch: Suboptimal views Choroid Plexus: Normal appearance Diaphragm: Normal appearance Cerebellum: Normal appearance Stomach: Normal appearance Posterior Fossa: Normal appearance Abdomen: Normal appearance Nuchal Fold: Suboptimal views Abdominal Wall: Normal appearance Face: Suboptimal views Cord Vessels: Normal 3-Vessel Cord Lips: Normal appearance Kidneys: Normal appearance Palate: Suboptimal views Bladder: Normal appearance Thoracic: Normal appearance Spine: Suboptimal views Heart: Normal appearance Upper Extremities: Present RVOT: Normal appearance Lower Extremities: Present Impression Quiñones live intrauterine at 31w 1d. Normal growth; EFW 1621 grams, which is at the 43% for this gestational age. The amniotic fluid index is 4.6cm, which is consistent with oligohydramnios BPP 6/8 -2 for fluid Cephalic today! Continued IP monitoring Ultrasound is not diagnostic of chromosomal aneuploidy and does not detect all subtle defects. Normal ultrasound findings do not guarantee normal outcomes. Rohit Stein MD Maternal Medicine Report Electronically Signed Final Report 03/03/2021 11:22 am Final Dictated: 03/03/2021 7:51 am Dictating Physician: [id number] ROHIT WU Signed Date and Time: 03/03/2021 11:23 am Signed by: [id number] ROHIT WU Ultrasound ACCESSION EXAM DATE/TIME PROCEDURE ORDERING PROVIDER [id number] 03/03/2021 07:49 EDT M US Biophy w/o BETO CALLAHAN non-stress Reason For Exam (MFM US Biophy w/o non-stress) PPROM Report OBSTETRICS REPORT (Signed Final 03/03/2021 11:22 am) Patient Info ID #: [id number] : [birth year] (20 yrs) Name: RAYMOND BROWNLEE Visit Date: 03/03/2021 07:51 am Performed By Attending: Rohit Stein MD Location: Inpatient - [facility] Performed By: Gina Hodges [facility] Visit Type: Inpatient - [facility] Referred By: SPIKE ANDERSON Service(s) [place] [address] BPP w/out NST 30684 Indications Oligohydramnios PPROM Vital Signs Weight (lb): 178 Height: 5'8 BMI: 27.06 Evaluation Num Of Fetuses: 1 Heart Rate(bpm): 144 Cardiac Activity: Regular rhythm Lie: Longitudinal Presentation: Cephalic Placenta: Anterior grade 2 Amniotic Fluid JUAN FV: Oligohydramnios JUAN Sum(cm) %Tile Largest Pocket(cm) Ultrasound Report 4.6 < 3 2 RUQ(cm) RLQ(cm) LLQ(cm) 1.1 1.5 2 Comment: There is no 2 x 2cm pocket. Biophysical Evaluation -- Amniotic F.V: oligohydramnios F. Tone: Observed F. Movement: Observed Score: 6/8 F. Breathing: Observed Biometry -------- BPD: 78.7 mm G. Age: 31w 4d 53 % CI: 75.8 % 70 - 86 OFD: 103.8 mm FL/HC: 20.4 % 19.3 - 21.3 HC: 291.5 mm G. Age: 32w 1d 41 % HC/AC: 1. (more content not included)... Normal [facility] US Follow Upon 03-03-2021 [facility] US Follow Up Patient Name: RAYMOND BROWNLEE Maternal Medicine ACCESSION EXAM DATE/TIME PROCEDURE ORDERING PROVIDER [id number] 03/03/2021 07:49 EDT [facility] US Biophy w/o SPIKE ANDERSON non-stress Reason For Exam ([facility] US Biophy w/o non-stress) PPROM Report OBSTETRICS REPORT (Signed Final 03/03/2021 11:22 am) Patient Info ID #: [id number] : [birth year] (20 yrs) Name: RAYMOND BROWNLEE Visit Date: 03/03/2021 07:51 am Performed By Attending: Rohit Stein MD Location: Inpatient - [facility] Performed By: Gina Hodges [facility] Visit Type: Inpatient - [facility] Referred By: SPIKE ANDERSON Service(s) [place] [address] BPP w/out NST 68122 Indications Oligohydramnios PPROM Vital Signs Weight (lb): 178 Height: 5'8 BMI: 27.06 Evaluation Num Of Fetuses: 1 Heart Rate(bpm): 144 Cardiac Activity: Regular rhythm Lie: Longitudinal Presentation: Cephalic Placenta: Anterior grade 2 Amniotic Fluid JUAN FV: Oligohydramnios JUAN Sum(cm) %Tile Largest Pocket(cm) 4.6 < 3 2 RUQ(cm) RLQ(cm) LLQ(cm) 1.1 1.5 2 Comment: There is no 2 x 2cm pocket. Maternal Medicine Report Biophysical Evaluation -- Amniotic F.V: oligohydramnios F. Tone: Observed F. Movement: Observed Score: 6/8 F. Breathing: Observed Biometry -------- BPD: 78.7 mm G. Age: 31w 4d 53 % CI: 75.8 % 70 - 86 OFD: 103.8 mm FL/HC: 20.4 % 19.3 - 21.3 HC: 291.5 mm G. Age: 32w 1d 41 % HC/AC: 1.12 0.96 - 1.17 AC: 259.3 mm G. Age: 30w 1d 19 % FL/BPD: 75.6 % 71 - 87 FL: 59.5 mm G. Age: 31w 0d 33 % FL/AC: 22.9 % 20 - 24 LV: 6.95 mm Est. FW: 1621 gm 3 lb 9 oz 43 % Gestational Age Clinical LOC: 31w 1d LOC: 05/04/21 U/S Today: 31w 2d LOC: 05/03/21 Best: 31w 1d Det. By: Clinical LOC LOC: 05/04/21 Anatomy ------- Cranium: Normal appearance LVOT: Normal appearance Cavum: Normal appearance Aortic Arch: Suboptimal views Ventricles: Normal appearance Ductal Arch: Suboptimal views Choroid Plexus: Normal appearance Diaphragm: Normal appearance Cerebellum: Normal appearance Stomach: Normal appearance Posterior Fossa: Normal appearance Abdomen: Normal appearance Nuchal Fold: Suboptimal views Abdominal Wall: Normal appearance Face: Suboptimal views Cord Vessels: Normal 3-Vessel Cord Lips: Normal appearance Kidneys: Normal appearance Palate: Suboptimal views Bladder: Normal appearance Thoracic: Normal appearance Spine: Suboptimal views Heart: Normal appearance Upper Extremities: Present RVOT: Normal appearance Lower Extremities: Present Impression Quiñones live intrauterine at 31w 1d. Normal growth; EFW 1621 grams, which is at the 43% for this gestational age. The amniotic fluid index is 4.6cm, which is consistent with oligohydramnios BPP 6/8 -2 for fluid Cephalic today! Continued IP monitoring Ultrasound is not diagnostic of chromosomal aneuploidy and does not detect all subtle defects. Normal ultrasound findings do not guarantee normal outcomes. Rohit Stein MD Maternal Medicine Report Electronically Signed Final Report 03/03/2021 11:22 am Final Dictated: 03/03/2021 7:51 am Dictating Physician: ROHIT FRENCH Signed Date and Time: 03/03/2021 11:23 am Signed by: ROHIT FRENCH Ultrasound ACCESSION EXAM DATE/TIME PROCEDURE ORDERING PROVIDER [id number] 03/03/2021 07:49 EDT MFM US Biophy w/o SPIKE ANDERSON non-stress Reason For Exam (MFM US Biophy w/o non-stress) PPROM Report OBSTETRICS REPORT (Signed Final 03/03/2021 11:22 am) Patient Info ID #: [id number] : [birth year] (20 yrs) Name: RAYMOND BROWNLEE Visit Date: 03/03/2021 07:51 am Performed By Attending: Rohit Stein MD Location: Inpatient - [facility] Performed By: Gnia Hodges [facility] Visit Type: Inpatient - [facility] Referred By: SPIKE ANDERSON Service(s) [place] [address] BPP w/out NST 85216 Indications Oligohydramnios PPROM Vital Signs Weight (lb): 178 Height: 5'8 BMI: 27.06 Evaluation Num Of Fetuses: 1 Heart Rate(bpm): 144 Cardiac Activity: Regular rhythm Lie: Longitudinal Presentation: Cephalic Placenta: Anterior grade 2 Amniotic Fluid JUAN FV: Oligohydramnios JUAN Sum(cm) %Tile Largest Pocket(cm) Ultrasound Report 4.6 < 3 2 RUQ(cm) RLQ(cm) LLQ(cm) 1.1 1.5 2 Comment: There is no 2 x 2cm pocket. Biophysical Evaluation -- Amniotic F.V: oligohydramnios F. Tone: Observed F. Movement: Observed Score: 6/8 F. Breathing: Observed Biometry -------- BPD: 78.7 mm G. Age: 31w 4d 53 % CI: 75.8 % 70 - 86 OFD: 103.8 mm FL/HC: 20.4 % 19.3 - 21.3 HC: 291.5 mm G. Age: 32w 1d 41 % HC/AC: 1.12 0 (more content not included)... Normal [facility] TS GELon 03-03-2021 TS GEL ABO Group: A Rh, Gel: POS Antibody Screen Gel: NEG Normal [facility] Comment on above: Performed By: #### T SGL #### [facility] TYPE AND SCREENOrdered By: Ramesh Green on 03-03-2021 ABO Grouping A [facility] Work Phone: Rh Type Positive [facility] Work Phone: Test Performed by [facility], [address] [place] [id number] [facility] Work Phone: [facility] Work Phone: US BIOPHYSICAL PROFILE WO NON STRESS TESTINGOrdered By: Beto Callahan on 03-03-2021 Patient Name: RAYMOND BROWNLEE Maternal Medicine ACCESSION EXAM DATE/TIME PROCEDURE ORDERING PROVIDER [id number] 03/03/2021 07:49 EDT MFM US Biophy w/o RHINA CALLAHANLEY non-stress Reason For Exam (MFM US Biophy w/o non-stress) PPROM Report OBSTETRICS REPORT (Signed Final 03/03/2021 11:22 am) Patient Info ID #: [id number] : [birth year] (20 yrs) Name: RAYMOND BROWNLEE Visit Date: 03/03/2021 07:51 am Performed By Attending: Rohit Stein MD Location: Inpatient - [facility] Performed By: Gina Hodges [facility] Visit Type: Inpatient - [facility] Referred By: SPIKE ANDERSON Service(s) [place] [address] [facility] w/out NST [address]991 Indications Oligohydramnios PPROM Vital Signs Weight (lb): 178 Height: 5'8 BMI: 27.06 Evaluation Num Of Fetuses: 1 Heart Rate(bpm): 144 Cardiac Activity: Regular rhythm Lie: Longitudinal Presentation: Cephalic Placenta: Anterior grade 2 Amniotic Fluid JUAN FV: Oligohydramnios JUAN Sum(cm) %Tile Largest Pocket(cm) 4.6 < 3 2 RUQ(cm) RLQ(cm) LLQ(cm) 1.1 1.5 2 Comment: There is no 2 x 2cm pocket. Maternal Medicine Report Biophysical Evaluation -- Amniotic F.V: oligohydramnios F. Tone: Observed F. Movement: Observed Score: 6/8 F. Breathing: Observed Biometry -------- BPD: 78.7 mm G. Age: 31w 4d 53 % CI: 75.8 % 70 - 86 OFD: 103.8 mm FL/HC: 20.4 % 19.3 - 21.3 HC: 291.5 mm G. Age: 32w 1d 41 % HC/AC: 1.12 0.96 - 1.17 AC: 259.3 mm G. Age: 30w 1d 19 % FL/BPD: 75.6 % 71 - 87 FL: 59.5 mm G. Age: 31w 0d 33 % FL/AC: 22.9 % 20 - 24 LV: 6.95 mm Est. FW: 1621 gm 3 lb 9 oz 43 % Gestational Age Clinical LOC: 31w 1d LOC: 05/04/21 U/S Today: 31w 2d LOC: 05/03/21 Best: 31w 1d Det. By: Clinical LOC LOC: 05/04/21 Anatomy ------- Cranium: Normal appearance LVOT: Normal appearance Cavum: Normal appearance Aortic Arch: Suboptimal views Ventricles: Normal appearance Ductal Arch: Suboptimal views Choroid Plexus: Normal appearance Diaphragm: Normal appearance Cerebellum: Normal appearance Stomach: Normal appearance Posterior Fossa: Normal appearance Abdomen: Normal appearance Nuchal Fold: Suboptimal views Abdominal Wall: Normal appearance Face: Suboptimal views Cord Vessels: Normal 3-Vessel Cord Lips: Normal appearance Kidneys: Normal appearance Palate: Suboptimal views Bladder: Normal appearance Thoracic: Normal appearance Spine: Suboptimal views Heart: Normal appearance Upper Extremities: Present RVOT: Normal appearance Lower Extremities: Present Impression Quiñones live intrauterine at 31w 1d. Normal growth; EFW 1621 grams, which is at the 43% for this gestational age. The amniotic fluid index is 4.6cm, which is consistent with oligohydramnios BPP 6/8 -2 for fluid Cephalic today! Continued IP monitoring Ultrasound is not diagnostic of chromosomal aneuploidy and does not detect all subtle defects. Normal ultrasound findings do not guarantee normal outcomes. Rohit Stein MD Maternal Medicine Report Electronically Signed Final Report 03/03/2021 11:22 am --- Final --- Dictated: 03/03/2021 7:51 am Dictating Physician: ROHIT FRENCH Signed Date and Time: 03/03/2021 11:23 am Signed by: ROHIT FRENCH Ultrasound ACCESSION EXAM DATE/TIME PROCEDURE ORDERING PROVIDER [id number] 03/03/2021 07:49 EDT MFM US Biophy w/o BETO CALLAHAN non-stress Reason For Exam (MFM US Biophy w/o non-stress) PPROM Report OBSTETRICS REPORT (Signed Final 03/03/2021 11:22 am) Samina (more content not included)... [facility] Work Phone: Fredy, [facility] Incoming Radiology Results From [facility] - 03/03/2021 11:23 AM EDT Patient Name: RAYMOND BROWNLEE Maternal Medicine ACCESSION EXAM DATE/TIME PROCEDURE ORDERING PROVIDER [id number] 03/03/2021 07:49 EDT MFM US Biophy w/o BETO CALLAHAN non-stress Reason For Exam (MFM US Biophy w/o non-stress) PPROM Report OBSTETRICS REPORT (Signed Final 03/03/2021 11:22 am) Patient Info ID #: [id number] : [birth year] (20 yrs) Name: RAYMOND BROWNLEE Visit Date: 03/03/2021 07:51 am Performed By Attending: Rohit Stein MD Location: Inpatient - [facility] Performed By: Gina Hodges [facility] Visit Type: Inpatient - [facility] Referred By: SPIKE ANDERSON Service(s) [place] [address] BPP w/out NST 46675 Indications Oligohydramnios PPROM Vital Signs Weight (lb): 178 Height: 5'8 BMI: 27.06 Evaluation Num Of Fetuses: 1 Heart Rate(bpm): 144 Cardiac Activity: Regular rhythm Lie: Longitudinal Presentation: Cephalic Placenta: Anterior grade 2 Amniotic Fluid JUAN FV: Oligohydramnios JUAN Sum(cm) %Tile Largest Pocket(cm) 4.6 < 3 2 RUQ(cm) RLQ(cm) LLQ(cm) 1.1 1.5 2 Comment: There is no 2 x 2cm pocket. Maternal Medicine Report Biophysical Evaluation -- Amniotic F.V: oligohydramnios F. Tone: Observed F. Movement: Observed Score: 6/8 F. Breathing: Observed Biometry -------- BPD: 78.7 mm G. Age: 31w 4d 53 % CI: 75.8 % 70 - 86 OFD: 103.8 mm FL/HC: 20.4 % 19.3 - 21.3 HC: 291.5 mm G. Age: 32w 1d 41 % HC/AC: 1.12 0.96 - 1.17 AC: 259.3 mm G. Age: 30w 1d 19 % FL/BPD: 75.6 % 71 - 87 FL: 59.5 mm G. Age: 31w 0d 33 % FL/AC: 22.9 % 20 - 24 LV: 6.95 mm Est. FW: 1621 gm 3 lb 9 oz 43 % Gestational Age Clinical LOC: 31w 1d LOC: 05/04/21 U/S Today: 31w 2d LOC: 05/03/21 Best: 31w 1d Det. By: Clinical LOC LOC: 05/04/21 Anatomy ------- Cranium: Normal appearance LVOT: Normal appearance Cavum: Normal appearance Aortic Arch: Suboptimal views Ventricles: Normal appearance Ductal Arch: Suboptimal views Choroid Plexus: Normal appearance Diaphragm: Normal appearance Cerebellum: Normal appearance Stomach: Normal appearance Posterior Fossa: Normal appearance Abdomen: Normal appearance Nuchal Fold: Suboptimal views Abdominal Wall: Normal appearance Face: Suboptimal views Cord Vessels: Normal 3-Vessel Cord Lips: Normal appearance Kidneys: Normal appearance Palate: Suboptimal views Bladder: Normal appearance Thoracic: Normal appearance Spine: Suboptimal views Heart: Normal appearance Upper Extremities: Present RVOT: Normal appearance Lower Extremities: Present Impression Quiñones live intrauterine at 31w 1d. Normal growth; EFW 1621 grams, which is at the 43% for this gestational age. The amniotic fluid index is 4.6cm, which is consistent with oligohydramnios BPP 6/8 -2 for fluid Cephalic today! Continued IP monitoring Ultrasound is not diagnostic of chromosomal aneuploidy and does not detect all subtle defects. Normal ultrasound findings do not guarantee normal outcomes. Rohit Stein MD Maternal Medicine Report Electronically Signed Final Report 03/03/2021 11:22 am --- Final --- Dictated: 03/03/2021 7:51 am Dictating Physician: ROHIT FRENCH Signed Date and Time: 03/03/2021 11:23 am Signed by: ROHIT FRENCH Ultrasound ACCESSION EXAM DATE/TIME PROCEDURE ORDERING PROVIDER [id number] 03/03/2021 07:49 EDT M US Biophy w/o BETO CALLAHAN non-stress Reason For Exam (MFM US Biophy w/o non-stress) PPROM Report OBSTETRICS REPORT (Signed Final 03/03/2021 11:22 am) Patient Info ID #: [id number] : [birth year] (20 yrs) Name: RAYMOND BROWNLEE Visit Date: 03/03/2021 07:51 am Performed By Attending: Rohit Stein MD Location: Inpatient - [facility] Performed By: Gina Hodges [facility] Visit Type: Inpatient - [facility] Referred By: SPIKE ANDERSON Service(s) [place] [address] BPP w/out NST 21747 Indications Oligohydramnios PPROM Vital Signs Weight (lb): 178 Height: 5'8 BMI: 27.06 Evaluation Num Of Fetuses: 1 Heart Rate(bpm): 144 Cardiac Activity: Regular rhythm Lie: Longitudinal Presentation: Cephalic Placenta: Anterior grade 2 Amniotic Fluid JUAN FV: Oligohydramnios JUAN Sum(cm) %Tile Largest Pocket(cm) Ultrasound Report 4.6 < 3 2 RUQ(cm) RLQ(cm) LLQ(cm) 1.1 1.5 2 Comment: There is no 2 x 2cm pocket. Biophysical Evaluation -- Amniotic F.V: oligohydramnios F. Tone: Observed F. Movement: Obs (more content not included)... [facility] Work Phone: [facility] Work Phone: US OB FOLLOW UP TRANSABDOMIN AL APPROACHOrdered By: Spike Anderson on 03-03-2021 Patient Name: RAYMOND BROWNLEE Maternal Medicine ACCESSION EXAM DATE/TIME PROCEDURE ORDERING PROVIDER [id number] 03/03/2021 07:49 EDT MFM US Biophy w/o SPIKE ANDERSON non-stress Reason For Exam (MFM US Biophy w/o non-stress) PPROM Report OBSTETRICS REPORT (Signed Final 03/03/2021 11:22 am) Patient Info ID #: [id number] : [birth year] (20 yrs) Name: RAYMOND BROWNLEE Visit Date: 03/03/2021 07:51 am Performed By Attending: Rohit Stein MD Location: Inpatient - [facility] Performed By: Gina Hodges [facility] Visit Type: Inpatient - [facility] Referred By: SPIKE ANDERSON Service(s) [place] [address] BPP w/out NST 85810 Indications Oligohydramnios PPROM Vital Signs Weight (lb): 178 Height: 5'8 BMI: 27.06 Evaluation Num Of Fetuses: 1 Heart Rate(bpm): 144 Cardiac Activity: Regular rhythm Lie: Longitudinal Presentation: Cephalic Placenta: Anterior grade 2 Amniotic Fluid JUAN FV: Oligohydramnios JUAN Sum(cm) %Tile Largest Pocket(cm) 4.6 < 3 2 RUQ(cm) RLQ(cm) LLQ(cm) 1.1 1.5 2 Comment: There is no 2 x 2cm pocket. Maternal Medicine Report Biophysical Evaluation -- Amniotic F.V: oligohydramnios F. Tone: Observed F. Movement: Observed Score: 6/8 F. Breathing: Observed Biometry -------- BPD: 78.7 mm G. Age: 31w 4d 53 % CI: 75.8 % 70 - 86 OFD: 103.8 mm FL/HC: 20.4 % 19.3 - 21.3 HC: 291.5 mm G. Age: 32w 1d 41 % HC/AC: 1.12 0.96 - 1.17 AC: 259.3 mm G. Age: 30w 1d 19 % FL/BPD: 75.6 % 71 - 87 FL: 59.5 mm G. Age: 31w 0d 33 % FL/AC: 22.9 % 20 - 24 LV: 6.95 mm Est. FW: 1621 gm 3 lb 9 oz 43 % Gestational Age Clinical LOC: 31w 1d LOC: 05/04/21 U/S Today: 31w 2d LOC: 05/03/21 Best: 31w 1d Det. By: Clinical LOC LOC: 05/04/21 Anatomy ------- Cranium: Normal appearance LVOT: Normal appearance Cavum: Normal appearance Aortic Arch: Suboptimal views Ventricles: Normal appearance Ductal Arch: Suboptimal views Choroid Plexus: Normal appearance Diaphragm: Normal appearance Cerebellum: Normal appearance Stomach: Normal appearance Posterior Fossa: Normal appearance Abdomen: Normal appearance Nuchal Fold: Suboptimal views Abdominal Wall: Normal appearance Face: Suboptimal views Cord Vessels: Normal 3-Vessel Cord Lips: Normal appearance Kidneys: Normal appearance Palate: Suboptimal views Bladder: Normal appearance Thoracic: Normal appearance Spine: Suboptimal views Heart: Normal appearance Upper Extremities: Present RVOT: Normal appearance Lower Extremities: Present Impression Quiñones live intrauterine at 31w 1d. Normal growth; EFW 1621 grams, which is at the 43% for this gestational age. The amniotic fluid index is 4.6cm, which is consistent with oligohydramnios BPP 6/8 -2 for fluid Cephalic today! Continued IP monitoring Ultrasound is not diagnostic of chromosomal aneuploidy and does not detect all subtle defects. Normal ultrasound findings do not guarantee normal outcomes. Rohit Stein MD Maternal Medicine Report Electronically Signed Final Report 03/03/2021 11:22 am --- Final --- Dictated: 03/03/2021 7:51 am Dictating Physician: ROHIT FRENCH Signed Date and Time: 03/03/2021 11:23 am Signed by: ROHIT FRENCH Ultrasound ACCESSION EXAM DATE/TIME PROCEDURE ORDERING PROVIDER [id number] 03/03/2021 07:49 EDT MFM US Biophy w/o SPIKE ANDERSON non-stress Reason For Exam (MFM US Biophy w/o non-stress) PPROM Report OBSTETRICS REPORT (Signed Final 03/03/2021 11:22 am) Patient (more content not included)... [facility] Work Phone: [facility]y, [facility] Incoming Radiology Results From [facility] - 03/03/2021 11:23 AM EDT Patient Name: RAYMOND BROWNLEE Maternal Medicine ACCESSION EXAM DATE/TIME PROCEDURE ORDERING PROVIDER [id number] 03/03/2021 07:49 EDT MFM US Biophy w/o SPIKE ANDERSON non-stress Reason For Exam (MFM US Biophy w/o non-stress) PPROM Report OBSTETRICS REPORT (Signed Final 03/03/2021 11:22 am) Patient Info ID #: [id number] : [birth year] (20 yrs) Name: RAYMOND BROWNLEE Visit Date: 03/03/2021 07:51 am Performed By Attending: Rohit Stein MD Location: Inpatient - [facility] Performed By: Gina Hodges [facility] Visit Type: Inpatient - [facility] Referred By: SPIKE ANDERSON Service(s) [place] [address] BPP w/out NST 15500 Indications Oligohydramnios PPROM Vital Signs Weight (lb): 178 Height: 5'8 BMI: 27.06 Evaluation Num Of Fetuses: 1 Heart Rate(bpm): 144 Cardiac Activity: Regular rhythm Lie: Longitudinal Presentation: Cephalic Placenta: Anterior grade 2 Amniotic Fluid JUAN FV: Oligohydramnios JUAN Sum(cm) %Tile Largest Pocket(cm) 4.6 < 3 2 RUQ(cm) RLQ(cm) LLQ(cm) 1.1 1.5 2 Comment: There is no 2 x 2cm pocket. Maternal Medicine Report Biophysical Evaluation -- Amniotic F.V: oligohydramnios F. Tone: Observed F. Movement: Observed Score: 6/8 F. Breathing: Observed Biometry -------- BPD: 78.7 mm G. Age: 31w 4d 53 % CI: 75.8 % 70 - 86 OFD: 103.8 mm FL/HC: 20.4 % 19.3 - 21.3 HC: 291.5 mm G. Age: 32w 1d 41 % HC/AC: 1.12 0.96 - 1.17 AC: 259.3 mm G. Age: 30w 1d 19 % FL/BPD: 75.6 % 71 - 87 FL: 59.5 mm G. Age: 31w 0d 33 % FL/AC: 22.9 % 20 - 24 LV: 6.95 mm Est. FW: 1621 gm 3 lb 9 oz 43 % Gestational Age Clinical LOC: 31w 1d LOC: 05/04/21 U/S Today: 31w 2d LOC: 05/03/21 Best: 31w 1d Det. By: Clinical LOC LOC: 05/04/21 Anatomy ------- Cranium: Normal appearance LVOT: Normal appearance Cavum: Normal appearance Aortic Arch: Suboptimal views Ventricles: Normal appearance Ductal Arch: Suboptimal views Choroid Plexus: Normal appearance Diaphragm: Normal appearance Cerebellum: Normal appearance Stomach: Normal appearance Posterior Fossa: Normal appearance Abdomen: Normal appearance Nuchal Fold: Suboptimal views Abdominal Wall: Normal appearance Face: Suboptimal views Cord Vessels: Normal 3-Vessel Cord Lips: Normal appearance Kidneys: Normal appearance Palate: Suboptimal views Bladder: Normal appearance Thoracic: Normal appearance Spine: Suboptimal views Heart: Normal appearance Upper Extremities: Present RVOT: Normal appearance Lower Extremities: Present Impression Quiñones live intrauterine at 31w 1d. Normal growth; EFW 1621 grams, which is at the 43% for this gestational age. The amniotic fluid index is 4.6cm, which is consistent with oligohydramnios BPP 6/8 -2 for fluid Cephalic today! Continued IP monitoring Ultrasound is not diagnostic of chromosomal aneuploidy and does not detect all subtle defects. Normal ultrasound findings do not guarantee normal outcomes. Rohit Stein MD Maternal Medicine Report Electronically Signed Final Report 03/03/2021 11:22 am --- Final --- Dictated: 03/03/2021 7:51 am Dictating Physician: ROHIT FRENCH Signed Date and Time: 03/03/2021 11:23 am Signed by: ROHIT FRENCH Ultrasound ACCESSION EXAM DATE/TIME PROCEDURE ORDERING PROVIDER [id number] 03/03/2021 07:49 EDT MFM US Biophy w/o SPIKE ANDERSON non-stress Reason For Exam (MFM US Biophy w/o non-stress) PPROM Report OBSTETRICS REPORT (Signed Final 03/03/2021 11:22 am) Patient Info ID #: [id number] : [birth year] (20 yrs) Name: RAYMOND BROWNLEE Visit Date: 03/03/2021 07:51 am Performed By Attending: Rohit Stein MD Location: Inpatient - [facility] Performed By: Gina Hodges [facility] Visit Type: Inpatient - [facility] Referred By: SPIKE ANDERSON Service(s) [place] [address] BPP w/out NST 15169 Indications Oligohydramnios PPROM Vital Signs Weight (lb): 178 Height: 5'8 BMI: 27.06 Evaluation Num Of Fetuses: 1 Heart Rate(bpm): 144 Cardiac Activity: Regular rhythm Lie: Longitudinal Presentation: Cephalic Placenta: Anterior grade 2 Amniotic Fluid JUAN FV: Oligohydramnios JUAN Sum(cm) %Tile Largest Pocket(cm) Ultrasound Report 4.6 < 3 2 RUQ(cm) RLQ(cm) LLQ(cm) 1.1 1.5 2 Comment: There is no 2 x 2cm pocket. Biophysical Evaluation -- Amniotic F.V: oligohydramnios F. Tone: Observed F. Movement: Observe (more content not included)... [facility] Work Phone: [facility] Work Phone: [facility] US Biophy w/o non- stresson 02-28-2021 MFM US Biophy w/o non-stress Patient Name: RAYMOND BROWNLEE Maternal Medicine ACCESSION EXAM DATE/TIME PROCEDURE ORDERING PROVIDER [id number] 02/28/2021 07:28 EDT MFM US Biophy w/o [id number] -ROSEMARIE BARILLAS non-stress Reason For Exam (M US Biophy w/o non-stress) PPROM Report OBSTETRICS REPORT (Signed Final 02/28/2021 11:08 am) Patient Info ID #: [id number] : [birth year] (20 yrs) Name: RAYMOND BROWNLEE Visit Date: 02/28/2021 07:28 am Performed By Attending: Francesca López Location: [facility] Performed By: Gina Hodges [facility] Visit Type: Inpatient - [facility] Referred By: ROSEMARIE BARILLAS Service(s) Provided BPP w/out NST 20973 Indications Oligohydramnios PPROM Vital Signs Weight (lb): 178 Height: 5'8 BMI: 27.06 Evaluation Num Of Fetuses: 1 Heart Rate(bpm): 153 Cardiac Activity: Regular rhythm Lie: Longitudinal Presentation: Cephalic Placenta: Anterior Amniotic Fluid JUAN FV: Oligohydramnios JUAN Sum(cm) %Tile Largest Pocket(cm) 5.7 < 3 4.2 RUQ(cm) LUQ(cm) 1.5 4.2 Maternal Medicine Report Comment: 4.16 x 3.27cm pocket LT UUS Biophysical Evaluation -- Amniotic F.V: within normal limits F. Tone: Observed F. Movement: Observed Score: 8/8 F. Breathing: Observed Gestational Age Clinical LOC: 30w 5d LOC: 05/04/21 Best: 30w 5d Det. By: Clinical LOC LOC: 05/04/21 Impression - Quiñones live intrauterine at 30w 5d. - Subjectivly low amniotic fluid volume. The amniotic fluid index is 5.7cm. - Reassuring BPP. Recommendations See inpatient chart. Ultrasound is not diagnostic of chromosomal aneuploidy and does not detect all subtle defects. Normal ultrasound findings do not guarantee normal outcomes. Francesca López DO, [facility] Electronically Signed Final Report 02/28/2021 11:08 am Final Dictated: 02/28/2021 7:28 am Dictating Physician: DO LÓPEZ KATHERINE BRIDGET Signed Date and Time: 02/28/2021 11:09 am Signed by: DO LÓPEZ KATHERINE BRIDGET Ultrasound ACCESSION EXAM DATE/TIME PROCEDURE ORDERING PROVIDER [id number] 02/28/2021 07:28 EDT [facility] US Biophy w/o [id number] ROSEMARIE LARA non-stress Reason For Exam (MFM US Biophy w/o non-stress) PPROM Report OBSTETRICS REPORT (Signed Final 02/28/2021 11:08 am) Patient Info ID #: [id number] : [birth year] (20 yrs) Name: RAYMOND BROWNLEE Visit Date: 02/28/2021 07:28 am Performed By Attending: Francesca López Location: [facility] Performed By: Gina Hodges [facility] Visit Type: Inpatient - [facility] Ultrasound Report Referred By: ROSEMARIE BARILLAS Service(s) Provided BPP w/out NST 89290 Indications Oligohydramnios PPROM Vital Signs Weight (lb): 178 Height: 5'8 BMI: 27.06 Evaluation Num Of Fetuses: 1 Heart Rate(bpm): 153 Cardiac Activity: Regular rhythm Lie: Longitudinal Presentation: Cephalic Placenta: Anterior Amniotic Fluid JUAN FV: Oligohydramnios JUAN Sum(cm) %Tile Largest Pocket(cm) 5.7 < 3 4.2 RUQ(cm) LUQ(cm) 1.5 4.2 Comment: 4.16 x 3.27cm pocket LT UUS Biophysical Evaluation -- Amniotic F.V: within normal limits F. Tone: Observed F. Movement: Observed Score: 8/8 F. Breathing: Observed Gestational Age Clinical LOC: 30w 5d LOC: 05/04/21 Best: 30w 5d Det. By: Clinical LOC LOC: 05/04/21 Impression - Quiñones live intrauterine at 30w 5d. - Subjectivly low amniotic fluid volume. The amniotic fluid index is 5.7cm. - Reassuring BPP. Recommendations See inpatient chart. Ultrasound is not diagnostic of chromosomal aneuploidy and does not detect all subtle defects. Normal ultrasound findings do not guarantee normal outcomes. Francesca López DO, [facility] Ultrasound Report Electronically Signed Final Report 02/28/2021 11:08 am Final Dictated: 02/28/2021 7:28 am Dictating Physician: DO LÓPEZ KATHERINE BRIDGET Signed Date and Time: 02/28/2021 11:09 am Signed by: DO LÓPEZ KATHERINE BRIDGET [facility] TS GELon 02-28-2021 TS GEL ABO Group: A Rh, Gel: POS Antibody Screen Gel: NEG Normal [facility] Comment on above: Performed By: #### B GLU #### [facility] [address] [place] [id number] TYPE AND SCREENOrdered By: Ramesh Green on 02-28-2021 ABO Grouping A [facility] Work Phone: Rh Type Positive [facility] Work Phone: Test Performed by [facility] [address] [address] [facility] Work Phone: [facility] Work Phone: US BIOPHYSICAL PROFILE WO NON STRESS TESTINGOrdered By: Rosemarie Barillas on 02-28-2021 Patient Name: RAYMOND BROWNLEE Maternal Medicine ACCESSION EXAM DATE/TIME PROCEDURE ORDERING PROVIDER [id number] 02/28/2021 07:28 EDT MFM US Biophy w/o [id number] -ROSEMARIE BARILLAS non-stress Reason For Exam (MFM US Biophy w/o non-stress) PPROM Report OBSTETRICS REPORT (Signed Final 02/28/2021 11:08 am) Patient Info ID #: [id number] : [birth year] (20 yrs) Name: RAYMOND BROWNLEE Visit Date: 02/28/2021 07:28 am Performed By Attending: Francesca López Location: [facility], [facility] Performed By: Gina Hodges [facility] Visit Type: Inpatient - [facility] Referred By: ROSEMARIE BARILLAS Service(s) Provided BPP w/out NST 60630 Indications Oligohydramnios PPROM Vital Signs Weight (lb): 178 Height: 5'8 BMI: 27.06 Evaluation Num Of Fetuses: 1 Heart Rate(bpm): 153 Cardiac Activity: Regular rhythm Lie: Longitudinal Presentation: Cephalic Placenta: Anterior Amniotic Fluid JUAN FV: Oligohydramnios JUAN Sum(cm) %Tile Largest Pocket(cm) 5.7 < 3 4.2 RUQ(cm) LUQ(cm) 1.5 4.2 Maternal Medicine Report Comment: 4.16 x 3.27cm pocket LT UUS Biophysical Evaluation -- Amniotic F.V: within normal limits F. Tone: Observed F. Movement: Observed Score: 8/8 F. Breathing: Observed Gestational Age Clinical LOC: 30w 5d LOC: 05/04/21 Best: 30w 5d Det. By: Clinical LOC LOC: 05/04/21 Impression - Quiñones live intrauterine at 30w 5d. - Subjectivly low amniotic fluid volume. The amniotic fluid index is 5.7cm. - Reassuring BPP. Recommendations See inpatient chart. Ultrasound is not diagnostic of chromosomal aneuploidy and does not detect all subtle defects. Normal ultrasound findings do not guarantee normal outcomes. Francesca López DO, [facility] Electronically Signed Final Report 02/28/2021 11:08 am --- Final --- Dictated: 02/28/2021 7:28 am Dictating Physician: DO LÓPEZ KATHERINE BRIDGET Signed Date and Time: 02/28/2021 11:09 am Signed by: DO LÓPEZ KATHERINE BRIDGET Ultrasound ACCESSION EXAM DATE/TIME PROCEDURE ORDERING PROVIDER [id number] 02/28/2021 07:28 EDT [facility] US Biophy w/o [id number] -ROSEMARIE BARILLAS non-stress Reason For Exam ([facility] US Biophy w/o non-stress) PPROM Report OBSTETRICS REPORT (Signed Final 02/28/2021 11:08 am) Patient Info ID #: [id number] : [birth year] (20 yrs) Name: RAYMOND BROWNLEE Visit Date: 02/28/2021 07:28 am Performed By Attending: Francesca López Location: [facility] Center Performed By: Gina Hodges [facility] Visit Type: Inpatient - [facility] Ultrasound Report Referred By: ROSEMARIE BARILLAS Service(s) Provided BPP w/out NST 34117 Indications Oligohydramnios PPROM Vital Signs Weight (lb): 178 Height: 5'8 BMI: 27.06 Evaluation Num Of Fetuses: 1 Heart Rate(bpm): 153 Cardiac Activity: Regular rhythm Lie: Longitudinal Presentation: Cephalic Placenta: Anterior Amniotic Fluid JUAN FV: Oligohydramnios JUAN Sum(cm) %Tile Largest Pocket(cm) 5.7 < 3 4.2 RUQ(cm) LUQ(cm) 1.5 4.2 Comment: 4.16 x 3.27cm pocket LT UUS Biophysical Evaluation -- Amniotic F.V: within normal limits F. Tone: Observed F. Movement: Observed Score: 8/8 F. Breathing: Observed Gestational Age Clinical LOC: 30w 5d LOC: 05/04/21 Best: 30w 5d Det. By: Clinical LOC LOC: 05/04/21 Impression - Quiñones live intrauterine at 30w 5d. - Subjectivly low amniotic fluid volume. The amniotic fluid index is 5.7cm. - Reassuring BPP. Recommendations See inpatient chart. Ultrasound is not diagnostic of chrom (more content not included)... [facility] Work Phone: Fredy, [facility] Incoming Radiology Results From [facility] - 02/28/2021 11:09 AM EDT Patient Name: RAYMOND BROWNLEE Maternal Medicine ACCESSION EXAM DATE/TIME PROCEDURE ORDERING PROVIDER [id number] 02/28/2021 07:28 EDT [facility] US Biophy w/o [id number] -ROSEMARIE BARILLAS non-stress Reason For Exam ([facility] US Biophy w/o non-stress) PPROM Report OBSTETRICS REPORT (Signed Final 02/28/2021 11:08 am) Patient Info ID #: [id number] : [birth year] (20 yrs) Name: RAYMOND BROWNLEE Visit Date: 02/28/2021 07:28 am Performed By Attending: Francesca López Location: [facility], [facility] Performed By: Gina Hodges [facility] Visit Type: Inpatient - [facility] Referred By: ROSEMARIE BARILLAS Service(s) Provided BPP w/out NST 46071 Indications Oligohydramnios PPROM Vital Signs Weight (lb): 178 Height: 5'8 BMI: 27.06 Evaluation Num Of Fetuses: 1 Heart Rate(bpm): 153 Cardiac Activity: Regular rhythm Lie: Longitudinal Presentation: Cephalic Placenta: Anterior Amniotic Fluid JUAN FV: Oligohydramnios JUAN Sum(cm) %Tile Largest Pocket(cm) 5.7 < 3 4.2 RUQ(cm) LUQ(cm) 1.5 4.2 Maternal Medicine Report Comment: 4.16 x 3.27cm pocket LT UUS Biophysical Evaluation -- Amniotic F.V: within normal limits F. Tone: Observed F. Movement: Observed Score: 8/8 F. Breathing: Observed Gestational Age Clinical LOC: 30w 5d LOC: 05/04/21 Best: 30w 5d Det. By: Clinical LOC LOC: 05/04/21 Impression - Quiñones live intrauterine at 30w 5d. - Subjectivly low amniotic fluid volume. The amniotic fluid index is 5.7cm. - Reassuring BPP. Recommendations See inpatient chart. Ultrasound is not diagnostic of chromosomal aneuploidy and does not detect all subtle defects. Normal ultrasound findings do not guarantee normal outcomes. Francesca López DO, FACOG Electronically Signed Final Report 02/28/2021 11:08 am --- Final --- Dictated: 02/28/2021 7:28 am Dictating Physician: DO LÓPEZ KATHERINE BRIDGET Signed Date and Time: 02/28/2021 11:09 am Signed by: DO LÓPEZ KATHERINE BRIDGET Ultrasound ACCESSION EXAM DATE/TIME PROCEDURE ORDERING PROVIDER [id number] 02/28/2021 07:28 EDT [facility] US Biophy w/o [id number] ROSEMARIE LARA non-stress Reason For Exam (M US Biophy w/o non-stress) PPROM Report OBSTETRICS REPORT (Signed Final 02/28/2021 11:08 am) Patient Info ID #: [id number] : [birth year] (20 yrs) Name: RAYMOND BROWNLEE Visit Date: 02/28/2021 07:28 am Performed By Attending: Francesca López Location: [facility] Performed By: Gina Hodges [facility] Visit Type: [facility] - [facility] Ultrasound Report Referred By: ROSEMARIE BARILLAS Service(s) Provided BPP w/out NST 70194 Indications Oligohydramnios PPROM Vital Signs Weight (lb): 178 Height: 5'8 BMI: 27.06 Evaluation Num Of Fetuses: 1 Heart Rate(bpm): 153 Cardiac Activity: Regular rhythm Lie: Longitudinal Presentation: Cephalic Placenta: Anterior Amniotic Fluid JUAN FV: Oligohydramnios JUAN Sum(cm) %Tile Largest Pocket(cm) 5.7 < 3 4.2 RUQ(cm) LUQ(cm) 1.5 4.2 Comment: 4.16 x 3.27cm pocket LT UUS Biophysical Evaluation -- Amniotic F.V: within normal limits F. Tone: Observed F. Movement: Observed Score: 8/8 F. Breathing: Observed Gestational Age Clinical LOC: 30w 5d LOC: 05/04/21 Best: 30w 5d Det. By: Clinical LOC LOC: 05/04/21 Impression - Quiñones live intrauterine at 30w 5d. - Subjectivly low amniotic fluid volume. The amniotic fluid index is 5.7cm. - Reassuring BPP. Recommendations See inpatient chart. Ultrasound is not diagnostic of chromosomal aneuploidy and does not detect all subtle defects. Normal ultrasound findings do not guarantee normal outcomes. Francesca López DO, FACOG Ultrasound Report Electronically Signed Final Report 02/28/2021 11:08 am --- Final --- Dictated: 02/28/2021 7:28 am Dictating Physician: DO LÓPEZ KATHERINE BRIDGET Signed Date and Time: 02/28/2021 11:09 am Signed by: DO LÓPEZ KATHERINE BRIDGET [facility] Work Phone: [phone] [facility] Work Phone: [phone] TS GELon 02-25-2021 TS GEL ABO Group: A Rh, Gel: POS Antibody Screen Gel: NEG Normal [facility] Comment on above: Performed By: #### T SGL #### [facility] TYPE AND SCREENOrdered By: Yashira Wright on 02-25-2021 ABO Grouping A [facility] Work Phone: [phone] Rh Type Positive [facility] Work Phone: [phone] Test Performed by [facility], [address] [place] [address] [facility] Work Phone: [phone] [facility] Work Phone: [phone] [facility] US Biophy w/o non- stresson 02-24-2021 [facility] US Biophy w/o non-stress Patient Name: RAYMOND BROWNLEE Maternal Medicine ACCESSION EXAM DATE/TIME PROCEDURE ORDERING PROVIDER [id number] 02/24/2021 08:28 EDT [facility] US Biophy w/o [id number] -ROSEMARIE BARILLAS non-stress Reason For Exam ([facility] US Biophy w/o non-stress) PPROM Report OBSTETRICS REPORT (Signed Final 02/24/2021 11:27 am) Patient Info ID #: [id number] : [birth year] (20 yrs) Name: RAYMOND BROWNLEE Visit Date: 02/24/2021 08:01 am Performed By Attending: Rohit Stein MD Referred By: ROSEMARIE BARILLAS Performed By: Norma Wallace Visit Type: Inpatient - [facility] Service(s) Provided BPP w/out NST 64121 Indications Oligohydramnios PPROM Vital Signs Weight (lb): 178 Height: 5'8 BMI: 27.06 Evaluation Num Of Fetuses: 1 Heart Rate(bpm): 140 Cardiac Activity: Regular rhythm Lie: Longitudinal Presentation: Cephalic Placenta: Anterior Amniotic Fluid JUAN FV: Oligohydramnios JUAN Sum(cm) %Tile Largest Pocket(cm) 1.7 < 3 1.7 RUQ(cm) RLQ(cm) LUQ(cm) LLQ(cm) 1.7 0 0 0 Comment: No 2x2 pocket Biophysical Evaluation Maternal Medicine Report -- Amniotic F.V: oligohydramnios F. Tone: Observed F. Movement: Observed Score: 6/8 F. Breathing: Observed Gestational Age Clinical LOC: 30w 1d LOC: 05/04/21 Best: 30w 1d Det. By: Clinical LOC LOC: 05/04/21 Impression - Quiñones live intrauterine at 30w 1d. - The amniotic fluid index is 1.7cm, which is consistent with oligohydramnios. - BPP 6/8, correlate with inpatent NST continued IP expectant management recommended Ultrasound is not diagnostic of chromosomal aneuploidy and does not detect all subtle defects. Normal ultrasound findings do not guarantee normal outcomes. Rohit Stein MD Electronically Signed Final Report 02/24/2021 11:27 am Final Dictated: 02/24/2021 8:01 am Dictating Physician: ROHIT FRENCH Signed Date and Time: 02/24/2021 11:28 am Signed by: ROHIT FRENCH Ultrasound ACCESSION EXAM DATE/TIME PROCEDURE ORDERING PROVIDER [id number] 02/24/2021 08:28 EDT [facility] US Biophy w/o [id number] -ROSEMARIE BARILLAS non-stress Reason For Exam ([facility] US Biophy w/o non-stress) PPROM Report OBSTETRICS REPORT (Signed Final 02/24/2021 11:27 am) Patient Info ID #: [id number] : [birth year] (20 yrs) Name: RAYMOND BROWNLEE Visit Date: 02/24/2021 08:01 am Performed By Attending: Rohit Stein MD Referred By: ROSEMARIE BARILLAS Performed By: Norma Wallace Visit Type: Inpatient - [facility] Service(s) Provided BPP w/out NST 72732 Indications Ultrasound Report Oligohydramnios PPROM Vital Signs Weight (lb): 178 Height: 5'8 BMI: 27.06 Evaluation Num Of Fetuses: 1 Heart Rate(bpm): 140 Cardiac Activity: Regular rhythm Lie: Longitudinal Presentation: Cephalic Placenta: Anterior Amniotic Fluid JUAN FV: Oligohydramnios JUAN Sum(cm) %Tile Largest Pocket(cm) 1.7 < 3 1.7 RUQ(cm) RLQ(cm) LUQ(cm) LLQ(cm) 1.7 0 0 0 Comment: No 2x2 pocket Biophysical Evaluation -- Amniotic F.V: oligohydramnios F. Tone: Observed F. Movement: Observed Score: 6/8 F. Breathing: Observed Gestational Age Clinical LOC: 30w 1d LOC: 05/04/21 Best: 30w 1d Det. By: Clinical LOC LOC: 05/04/21 Impression - Quiñones live intrauterine at 30w 1d. - The amniotic fluid index is 1.7cm, which is consistent with oligohydramnios. - BPP 6/8, correlate with inpatent NST continued IP expectant management recommended Ultrasound is not diagnostic of chromosomal aneuploidy and does not detect all subtle defects. Normal ultrasound findings do not guarantee normal outcomes. Rohit Stein MD Electronically Signed Final Report 02/24/2021 11:27 am Final Dictated: 02/24/2021 8:01 am Dictating Physician: ROHIT FRENCH Signed Date and Time: 02/24/2021 11:28 am Signed by: ROHIT FRENCH [facility] US BIOPHYSICAL PROFILE WO NON STRESS TESTINGOrdered By: Rosemarie Barillas on 02-24-2021 Patient Name: RAYMOND BROWNLEE Maternal Medicine ACCESSION EXAM DATE/TIME PROCEDURE ORDERING PROVIDER [id number] 02/24/2021 08:28 EDT [facility] US Biophy w/o [id number] -ROSEMARIE BARILLAS non-stress Reason For Exam ([facility] US Biophy w/o non-stress) PPROM Report OBSTETRICS REPORT (Signed Final 02/24/2021 11:27 am) Patient Info ID #: [id number] : [birth year] (20 yrs) Name: RAYMOND BROWNLEE Visit Date: 02/24/2021 08:01 am Performed By Attending: Rohit Stein MD Referred By: ROSEMARIE BARILLAS Performed By: Norma Wallace Visit Type: Inpatient - [facility] Service(s) Provided BPP w/out NST 55292 Indications Oligohydramnios PPROM Vital Signs Weight (lb): 178 Height: 5'8 BMI: 27.06 Evaluation Num Of Fetuses: 1 Heart Rate(bpm): 140 Cardiac Activity: Regular rhythm Lie: Longitudinal Presentation: Cephalic Placenta: Anterior Amniotic Fluid JUAN FV: Oligohydramnios JUAN Sum(cm) %Tile Largest Pocket(cm) 1.7 < 3 1.7 RUQ(cm) RLQ(cm) LUQ(cm) LLQ(cm) 1.7 0 0 0 Comment: No 2x2 pocket Biophysical Evaluation Maternal Medicine Report -- Amniotic F.V: oligohydramnios F. Tone: Observed F. Movement: Observed Score: 6/8 F. Breathing: Observed Gestational Age Clinical LOC: 30w 1d LOC: 05/04/21 Best: 30w 1d Det. By: Clinical LOC LOC: 05/04/21 Impression - Quiñones live intrauterine at 30w 1d. - The amniotic fluid index is 1.7cm, which is consistent with oligohydramnios. - BPP 6/8, correlate with inpatent NST continued IP expectant management recommended Ultrasound is not diagnostic of chromosomal aneuploidy and does not detect all subtle defects. Normal ultrasound findings do not guarantee normal outcomes. Rohit Stein MD Electronically Signed Final Report 02/24/2021 11:27 am --- Final --- Dictated: 02/24/2021 8:01 am Dictating Physician: [id number] -ROHIT STEIN Signed Date and Time: 02/24/2021 11:28 am Signed by: [id number] ROHIT WU Ultrasound ACCESSION EXAM DATE/TIME PROCEDURE ORDERING PROVIDER [id number] 02/24/2021 08:28 EDT [facility] US Biophy w/o [id number] ROSEMARIE LARA non-stress Reason For Exam ([facility] US Biophy w/o non-stress) PPROM Report OBSTETRICS REPORT (Signed Final 02/24/2021 11:27 am) Patient Info ID #: [id number] : [birth year] (20 yrs) Name: RAYMOND BROWNLEE Visit Date: 02/24/2021 08:01 am Performed By Attending: Rohit Stein MD Referred By: ROSEMARIE BARILLAS Performed By: Norma Wallace Visit Type: Inpatient - [facility] Service(s) Provided BPP w/out NST 74847 Indications Ultrasound Report Oligohydramnios PPROM Vital Signs Weight (lb): 178 Height: 5'8 BMI: 27.06 Evaluation Num Of Fetuses: 1 Heart Rate(bpm): 140 Cardiac Activity: Regular rhythm Lie: Longitudinal Presentation: Cephalic Placenta: Anterior Amniotic Fluid JUAN FV: Oligohydramnios JUAN Sum(cm) %Tile Largest Pocket(cm) 1.7 < 3 1.7 RUQ(cm) RLQ(cm) LUQ(cm) LLQ(cm) 1.7 0 0 0 Comment: No 2x2 pocket Biophysical Evaluation -- Amniotic F.V: oligohydramnios F. Tone: Observed F. Movement: Observed Score: 6/8 F. Breathing: Observed Gestational Age Clinical LOC: 30w 1d LOC: 05/04/21 Best: 30w 1d Det. By: Clinical LOC LOC: 05/04/21 Impression - Quiñones live intrauterine at 30w 1d. - The amniotic fluid index is 1.7cm, which is consistent with oligohydramnios. - BPP 6/8, correlate with inpatent NST continued IP expectant management recommended Ultrasound is not diagnostic of chromosomal aneuploidy and does not detect all subtle defects. Normal ultrasound findings do not guarantee normal outcomes. Rohit Stein MD Electronically Signed (more content not included)... [facility] Work Phone: Fredy, [facility] Incoming Radiology Results From [facility] - 02/24/2021 11:28 AM EDT Patient Name: RAYMOND BROWNLEE Maternal Medicine ACCESSION EXAM DATE/TIME PROCEDURE ORDERING PROVIDER [id number] 02/24/2021 08:28 EDT [facility] US Biophy w/o [id number] -ROSEMARIE BARILLAS non-stress Reason For Exam ([facility] US Biophy w/o non-stress) PPROM Report OBSTETRICS REPORT (Signed Final 02/24/2021 11:27 am) Patient Info ID #: [id number] : [birth year] (20 yrs) Name: RAYMOND BROWNLEE Visit Date: 02/24/2021 08:01 am Performed By Attending: Rohit Stein MD Referred By: ROSEMARIE BARILLAS Performed By: Norma Wallace Visit Type: Inpatient - [facility] Service(s) Provided BPP w/out NST 84997 Indications Oligohydramnios PPROM Vital Signs Weight (lb): 178 Height: 5'8 BMI: 27.06 Evaluation Num Of Fetuses: 1 Heart Rate(bpm): 140 Cardiac Activity: Regular rhythm Lie: Longitudinal Presentation: Cephalic Placenta: Anterior Amniotic Fluid JUAN FV: Oligohydramnios JUAN Sum(cm) %Tile Largest Pocket(cm) 1.7 < 3 1.7 RUQ(cm) RLQ(cm) LUQ(cm) LLQ(cm) 1.7 0 0 0 Comment: No 2x2 pocket Biophysical Evaluation Maternal Medicine Report -- Amniotic F.V: oligohydramnios F. Tone: Observed F. Movement: Observed Score: 6/8 F. Breathing: Observed Gestational Age Clinical LOC: 30w 1d LOC: 05/04/21 Best: 30w 1d Det. By: Clinical LOC LOC: 05/04/21 Impression - Quiñones live intrauterine at 30w 1d. - The amniotic fluid index is 1.7cm, which is consistent with oligohydramnios. - BPP 6/8, correlate with inpatent NST continued IP expectant management recommended Ultrasound is not diagnostic of chromosomal aneuploidy and does not detect all subtle defects. Normal ultrasound findings do not guarantee normal outcomes. Rohit Stein MD Electronically Signed Final Report 02/24/2021 11:27 am --- Final --- Dictated: 02/24/2021 8:01 am Dictating Physician: ROHIT FRENCH Signed Date and Time: 02/24/2021 11:28 am Signed by: ROHIT FRENCH Ultrasound ACCESSION EXAM DATE/TIME PROCEDURE ORDERING PROVIDER [id number] 02/24/2021 08:28 EDT [facility] US Biophy w/o [id number] -ROSEMARIE BARILLAS non-stress Reason For Exam (M US Biophy w/o non-stress) PPROM Report OBSTETRICS REPORT (Signed Final 02/24/2021 11:27 am) Patient Info ID #: [id number] : [birth year] (20 yrs) Name: RAYMOND BROWNLEE Visit Date: 02/24/2021 08:01 am Performed By Attending: Rohit Stein MD Referred By: ROSEMARIE BARILLAS Performed By: Norma Wallace Visit Type: Inpatient - [facility] Service(s) Provided BPP w/out NST 31091 Indications Ultrasound Report Oligohydramnios PPROM Vital Signs Weight (lb): 178 Height: 5'8 BMI: 27.06 Evaluation Num Of Fetuses: 1 Heart Rate(bpm): 140 Cardiac Activity: Regular rhythm Lie: Longitudinal Presentation: Cephalic Placenta: Anterior Amniotic Fluid JUAN FV: Oligohydramnios JUAN Sum(cm) %Tile Largest Pocket(cm) 1.7 < 3 1.7 RUQ(cm) RLQ(cm) LUQ(cm) LLQ(cm) 1.7 0 0 0 Comment: No 2x2 pocket Biophysical Evaluation -- Amniotic F.V: oligohydramnios F. Tone: Observed F. Movement: Observed Score: 6/8 F. Breathing: Observed Gestational Age Clinical LOC: 30w 1d LOC: 05/04/21 Best: 30w 1d Det. By: Clinical LOC LOC: 05/04/21 Impression - Quiñones live intrauterine at 30w 1d. - The amniotic fluid index is 1.7cm, which is consistent with oligohydramnios. - BPP 6/8, correlate with inpatent NST continued IP expectant management recommended Ultrasound is not diagnostic of chromosomal aneuploidy and does not detect all subtle defects. Normal ultrasound findings do not guarantee normal outcomes. Rohit Stein MD Electronically Signed Final Report 02/24/2021 11:27 am --- Final --- Dictated: 02/24/2021 8:01 am Dictating Physician: ROHIT FRENCH Signed Date and Time: 02/24/2021 11:28 am Signed by: ROHIT FRENCH [facility] Work Phone: [facility] Work Phone: Culture, VaginalOrdered By: Anna Gomes on 02-21-[address] VAGINA Moderate vaginal justin. No Group B streptococcus isolated. [facility] Work Phone: Gram Stain Result Gram stain consistent with normal vaginal justin. [facility] Work Phone: Test Performed by [facility], [address] [place] [address] [facility] Work Phone: [facility] Work Phone: [facility] US Biophy w/o non- stresson 02-21-2021 MFM US Biophy w/o non-stress Patient Name: RAYMOND BROWNLEE Maternal Medicine ACCESSION EXAM DATE/TIME PROCEDURE ORDERING PROVIDER [id number] 02/21/2021 08:57 EDT [facility] US Biophy w/o [id number] -ROSEMARIE BARILLAS non-stress Reason For Exam ([facility] US Biophy w/o non-stress) PPROM Report OBSTETRICS REPORT (Signed Final 02/21/2021 10:37 am) Patient Info ID #: [id number] : [birth year] (20 yrs) Name: RAYMOND BROWNLEE Visit Date: 02/21/2021 08:33 am Performed By Attending: Rohit Stein MD Referred By: ROSEMARIE BARILLAS Performed By: Norma Wallace Visit Type: Inpatient - [facility] Service(s) Provided BPP w/out NST 32148 Indications Oligohydramnios PPROM Vital Signs Weight (lb): 178 Height: 5'8 BMI: 27.06 Evaluation Num Of Fetuses: 1 Heart Rate(bpm): 135 Cardiac Activity: Regular rhythm Lie: Maternal LT Presentation: Cephalic Placenta: Anterior Amniotic Fluid JUAN FV: Anhydramnios JUAN Sum(cm) %Tile 0 < 3 RUQ(cm) RLQ(cm) LUQ(cm) LLQ(cm) 0 0 0 0 Biophysical Evaluation -- Maternal Medicine Report Amniotic F.V: anhydramios F. Tone: Observed F. Movement: Observed Score: 8 F. Breathing: Observed Gestational Age Clinical LOC: 29w 5d LOC: 05/04/21 Best: 29w 5d Det. By: Clinical LOC LOC: 05/04/21 Impression - Quiñones live intrauterine at 29w 5d. - The amniotic fluid index is 0.cm, which is within normal limits. - BPP 01/18 -2 fluid anhydramnios is noted today Continued IP MFM expectant management Ultrasound is not diagnostic of chromosomal aneuploidy and does not detect all subtle defects. Normal ultrasound findings do not guarantee normal outcomes. Rohit Stein MD Electronically Signed Final Report 02/21/2021 10:37 am Final Dictated: 02/21/2021 8:33 am Dictating Physician: ROHIT FRENCH Signed Date and Time: 02/21/2021 10:38 am Signed by: ROHIT FRENCH Ultrasound ACCESSION EXAM DATE/TIME PROCEDURE ORDERING PROVIDER [id number] 02/21/2021 08:57 EDT [facility] US Biophy w/o [id number] -ROSEMARIE BARILLAS non-stress Reason For Exam (M US Biophy w/o non-stress) PPROM Report OBSTETRICS REPORT (Signed Final 02/21/2021 10:37 am) Patient Info ID #: [id number] : [birth year] (20 yrs) Name: RAYMOND BROWNLEE Visit Date: 02/21/2021 08:33 am Performed By Attending: Rohit Stein MD Referred By: ROSEMARIE BARILLAS Performed By: Norma Wallace Visit Type: Inpatient - [facility] Service(s) Provided BPP w/out NST 07549 Indications Oligohydramnios PPROM Ultrasound Report Vital Signs Weight (lb): 178 Height: 5'8 BMI: 27.06 Evaluation Num Of Fetuses: 1 Heart Rate(bpm): 135 Cardiac Activity: Regular rhythm Lie: Maternal LT Presentation: Cephalic Placenta: Anterior Amniotic Fluid JUAN FV: Anhydramnios JUAN Sum(cm) %Tile 0 < 3 RUQ(cm) RLQ(cm) LUQ(cm) LLQ(cm) 0 0 0 0 Biophysical Evaluation -- Amniotic F.V: anhydramios F. Tone: Observed F. Movement: Observed Score: 6/8 F. Breathing: Observed Gestational Age Clinical LOC: 29w 5d LOC: 05/04/21 Best: 29w 5d Det. By: Clinical LOC LOC: 05/04/21 Impression - Quiñones live intrauterine at 29w 5d. - The amniotic fluid index is 0.cm, which is within normal limits. - BPP 01/18 -2 fluid anhydramnios is noted today Continued IP MFM expectant management Ultrasound is not diagnostic of chromosomal aneuploidy and does not detect all subtle defects. Normal ultrasound findings do not guarantee normal outcomes. Rohit Stein MD Electronically Signed Final Report 02/21/2021 10:37 am Final Dictated: 02/21/2021 8:33 am Dictating Physician: ROHIT FRENCH Signed Date and Time: 02/21/2021 10:38 am Signed by: ROHIT FRENCH [facility] TS GELon 02-21-2021 TS GEL ABO Group: A Rh, Gel: POS Antibody Screen Gel: NEG Normal [facility] Comment on above: Performed By: #### B GLU #### [address] [address] TYPE AND SCREENOrdered By: Yashira Wright on 02-21-2021 ABO Grouping A [facility] Work Phone: Rh Type Positive [facility] Work Phone: Test Performed by [facility] [address] [facility] Work Phone: [facility] Work Phone: US BIOPHYSICAL PROFILE WO NON STRESS TESTINGOrdered By: Rosemarie Barillas on 02-21-2021 Patient Name: RAYMOND BROWNLEE Maternal Medicine ACCESSION EXAM DATE/TIME PROCEDURE ORDERING PROVIDER [id number] 02/21/2021 08:57 EDT [facility] US Biophy w/o [id number] -ROSEMARIE BARILLAS non-stress Reason For Exam (M US Biophy w/o non-stress) PPROM Report OBSTETRICS REPORT (Signed Final 02/21/2021 10:37 am) Patient Info ID #: [id number] : [birth year] (20 yrs) Name: RAYMOND BROWNLEE Visit Date: 02/21/2021 08:33 am Performed By Attending: Rohit Stein MD Referred By: ROSEMARIE BARILLAS Performed By: Norma Wallace Visit Type: [facility]patient - [facility] Service(s) Provided BPP w/out NST 15682 Indications Oligohydramnios PPROM Vital Signs Weight (lb): 178 Height: 5'8 BMI: 27.06 Evaluation Num Of Fetuses: 1 Heart Rate(bpm): 135 Cardiac Activity: Regular rhythm Lie: Maternal LT Presentation: Cephalic Placenta: Anterior Amniotic Fluid JUAN FV: Anhydramnios JUAN Sum(cm) %Tile 0 < 3 RUQ(cm) RLQ(cm) LUQ(cm) LLQ(cm) 0 0 0 0 Biophysical Evaluation -- Maternal Medicine Report Amniotic F.V: anhydramios F. Tone: Observed F. Movement: Observed Score: 01/18 F. Breathing: Observed Gestational Age Clinical LOC: 29w 5d LOC: 05/04/21 Best: 29w 5d Det. By: Clinical LOC LOC: 05/04/21 Impression - Quiñones live intrauterine at 29w 5d. - The amniotic fluid index is 0.cm, which is within normal limits. - BPP 01/18 -2 fluid anhydramnios is noted today Continued IP MFM expectant management Ultrasound is not diagnostic of chromosomal aneuploidy and does not detect all subtle defects. Normal ultrasound findings do not guarantee normal outcomes. Rohit Stein MD Electronically Signed Final Report 02/21/2021 10:37 am --- Final --- Dictated: 02/21/2021 8:33 am Dictating Physician: ROHIT FRENCH Signed Date and Time: 02/21/2021 10:38 am Signed by: ROHIT FRENCH Ultrasound ACCESSION EXAM DATE/TIME PROCEDURE ORDERING PROVIDER [id number] 02/21/2021 08:57 EDT M US Biophy w/o [id number] -ROSEMARIE BARILLAS non-stress Reason For Exam ([facility] US Biophy w/o non-stress) PPROM Report OBSTETRICS REPORT (Signed Final 02/21/2021 10:37 am) Patient Info ID #: [id number] : [birth year] (20 yrs) Name: RAYMOND BROWNLEE Visit Date: 02/21/2021 08:33 am Performed By Attending: Rohit Stein MD Referred By: ROSEMARIE BARILLAS Performed By: Norma Wallace Visit Type: Inpatient - [facility] Service(s) Provided BPP w/out NST 03692 Indications Oligohydramnios PPROM Ultrasound Report Vital Signs Weight (lb): 178 Height: 5'8 BMI: 27.06 Evaluation Num Of Fetuses: 1 Heart Rate(bpm): 135 Cardiac Activity: Regular rhythm Lie: Maternal LT Presentation: Cephalic Placenta: Anterior Amniotic Fluid JUAN FV: Anhydramnios JUAN Sum(cm) %Tile 0 < 3 RUQ(cm) RLQ(cm) LUQ(cm) LLQ(cm) 0 0 0 0 Biophysical Evaluation -- Amniotic F.V: anhydramios F. Tone: Observed F. Movement: Observed Score: 68 F. Breathing: Observed Gestational Age Clinical LOC: 29w 5d LOC: 05/04/21 Best: 29w 5d Det. By: Clinical OLC LOC: 05/04/21 Impression - Quiñones live intrauterine at 29w 5d. - The amniotic fluid index is 0.cm, which is within normal limits. - BPP 6/8 -2 fluid anhydramnios is noted today Continued IP MFM expectant management Ultrasound is not diagnostic of chromosomal aneuploidy and does not detect all subtle defects. Normal ultrasound findings do not guarantee normal outcomes. Rohit Stein MD Electronically Signed Final Report 02/21/2021 10:37 am --- Final --- Dictated: 02/21/2021 8:33 am Dictating Physician: [id number] -ROHIT STEIN Signed Date a (more content not included)... [facility] Work Phone: [facility], [facility] Incoming Radiology Results From [facility] - 02/21/2021 10:38 AM EDT Patient Name: RAYMOND BROWNLEE Maternal Medicine ACCESSION EXAM DATE/TIME PROCEDURE ORDERING PROVIDER [id number] 02/21/2021 08:57 EDT [facility] US Biophy w/o [id number] -ROSEMARIE BARILLAS non-stress Reason For Exam (MFM US Biophy w/o non-stress) PPROM Report OBSTETRICS REPORT (Signed Final 02/21/2021 10:37 am) Patient Info ID #: [id number] : [birth year] (20 yrs) Name: RAYMOND BROWNLEE Visit Date: 02/21/2021 08:33 am Performed By Attending: Rohit Stein MD Referred By: ROSEMARIE BARILLAS Performed By: Norma Wallace Visit Type: Inpatient - [facility] Service(s) Provided BPP w/out NST 12896 Indications Oligohydramnios PPROM Vital Signs Weight (lb): 178 Height: 5'8 BMI: 27.06 Evaluation Num Of Fetuses: 1 Heart Rate(bpm): 135 Cardiac Activity: Regular rhythm Lie: Maternal LT Presentation: Cephalic Placenta: Anterior Amniotic Fluid JUAN FV: Anhydramnios JUAN Sum(cm) %Tile 0 < 3 RUQ(cm) RLQ(cm) LUQ(cm) LLQ(cm) 0 0 0 0 Biophysical Evaluation -- Maternal Medicine Report Amniotic F.V: anhydramios F. Tone: Observed F. Movement: Observed Score: 6/8 F. Breathing: Observed Gestational Age Clinical LOC: 29w 5d LOC: 05/04/21 Best: 29w 5d Det. By: Clinical LOC LOC: 05/04/21 Impression - Quiñones live intrauterine at 29w 5d. - The amniotic fluid index is 0.cm, which is within normal limits. - BPP 6/8 -2 fluid anhydramnios is noted today Continued IP MFM expectant management Ultrasound is not diagnostic of chromosomal aneuploidy and does not detect all subtle defects. Normal ultrasound findings do not guarantee normal outcomes. Rohit Stein MD Electronically Signed Final Report 02/21/2021 10:37 am --- Final --- Dictated: 02/21/2021 8:33 am Dictating Physician: ROHIT FRENCH Signed Date and Time: 02/21/2021 10:38 am Signed by: ROHIT FRENCH Ultrasound ACCESSION EXAM DATE/TIME PROCEDURE ORDERING PROVIDER [id number] 02/21/2021 08:57 EDT [facility] US Biophy w/o [id number] ROSEMARIE LARA non-stress Reason For Exam ([facility]FM US Biophy w/o non-stress) PPROM Report OBSTETRICS REPORT (Signed Final 02/21/2021 10:37 am) Patient Info ID #: [id number] : [birth year] (20 yrs) Name: RAYMOND BROWNLEE Visit Date: 02/21/2021 08:33 am Performed By Attending: Rohit Stein MD Referred By: ROSEMARIE BARILLAS Performed By: Norma Wallace Visit Type: Inpatient - [facility] Service(s) Provided BPP w/out NST 20283 Indications Oligohydramnios PPROM Ultrasound Report Vital Signs Weight (lb): 178 Height: 5'8 BMI: 27.06 Evaluation Num Of Fetuses: 1 Heart Rate(bpm): 135 Cardiac Activity: Regular rhythm Lie: Maternal LT Presentation: Cephalic Placenta: Anterior Amniotic Fluid JUAN FV: Anhydramnios JUAN Sum(cm) %Tile 0 < 3 RUQ(cm) RLQ(cm) LUQ(cm) LLQ(cm) 0 0 0 0 Biophysical Evaluation -- Amniotic F.V: anhydramios F. Tone: Observed F. Movement: Observed Score: 6/8 F. Breathing: Observed Gestational Age Clinical LOC: 29w 5d LOC: 05/04/21 Best: 29w 5d Det. By: Clinical LOC LOC: 05/04/21 Impression - Quiñones live intrauterine at 29w 5d. - The amniotic fluid index is 0.cm, which is within normal limits. - BPP 6/8 -2 fluid anhydramnios is noted today Continued IP MFM expectant management Ultrasound is not diagnostic of chromosomal aneuploidy and does not detect all subtle defects. Normal ultrasound findings do not guarantee normal outcomes. Rohit Stein MD Electronically Signed Final Report 02/21/2021 10:37 am --- Final --- Dictated: 02/21/2021 8:33 am Dictating Physician: ROHIT FRENCH Signed Date and Time: 02/21/2021 10:38 am Signed by: ROHIT FRENCH [facility] Work Phone: [phone] [facility] Work Phone: [phone] CULT./ST. VAGINAon 1 CULT./ST. VAGINA CULT./ST. VAGINA --> Status: F Moderate vaginal justin. No Group B streptococcus isolated. No Group B streptococcus isolated. STAIN GRAM --> Status: F Gram stain consistent with normal vaginal justin. Normal [facility] Comment on above: Performed By: #### T SGL #### [facility] CBC WITH AUTO DIFFERENTIALOr dered By: Anna Gomes on 02-18-2021 Absolute Baso # 0.0 10*3/uL 0.0 - 0.2 10*3/uL [facility] Work Phone: [phone] Absolute Neut # 7.6 10*3/uL High 1.8 - 7.0 10*3/uL [facility] Work Phone: Basophils/100 WBC (Bld) 0.4 % 0.0 - 2.0 % [facility] Work Phone: [phone] Eosinophils (Bld) [#/Vol] 0.1 10*3/uL 0.0 - 0.5 10*3/uL [facility] Work Phone: [phone] Eosinophils/100 WBC (Bld) 0.9 % Low 1.0 - 6.0 % [facility] Work Phone: 1 Granulocytes/100 WBC (Bld) 68.6 % 40.0 - 80.0 % [facility] Work Phone: 1 Hematocrit (Bld) [Volume fraction] 36.5 % 35.0 - 47.0 % [facility] Work Phone: Hemoglobin.gastrointes tinal spec 1 Ql (Stl) 12.0 g/dL 11.7 - 16.0 g/dL [facility] Work Phone: [phone] Interpretation and review of laboratory results Abnormal [facility] Work Phone: 1 Lymphocytes (Bld) [#/Vol] 2.6 10*3/uL 1.0 - 4.3 10*3/uL [facility] Work Phone: 1 Lymphocytes/100 WBC (Bld) 23.4 % 20.0 - 40.0 % [facility] Work Phone: MCH (RBC) [Entitic mass] 28.7 pg 26.0 - 34.0 pg [facility] Work Phone: MCHC (RBC) [Mass/Vol] 33.0 % 32.0 - 36.0 % [facility] Work Phone: [phone] MCV (RBC) [Entitic vol] 87.1 fL 79.0 - 98.0 fL [facility] Work Phone: Monocytes (Bld) [#/Vol] 0.7 10*3/uL 0.0 - 0.8 10*3/uL [facility] Work Phone: Monocytes/100 WBC (Bld) 6.7 % 2.0 - 10.0 % [facility] Work Phone: [phone] Platelet distribution width (Bld) [Ratio] 14.1 % 11.5 - 14.5 % [facility] Work Phone: [phone] Platelet mean volume (Bld) [Entitic vol] 10.3 fL 7.4 - 10.4 fL [facility] Work Phone: Platelets (Bld) [#/Vol] 176 10*3/uL 140 - 440 10*3/uL [facility] Work Phone: [phone] RBC (Bld) [#/Vol] 4.19 10*6/uL 3.80 - 5.2 0 10*6/uL [facility] Work Phone: [phone] WBC (Bld) [#/Vol] 11.0 10*3/uL High 3.6 - 10.7 10*3/uL [facility] Work Phone: [phone] Test Performed by [facility], [address] [place] [address] [facility] Work Phone: [phone] [facility] Work Phone: [phone] Hemogram w/ Autodiffon 02-18 Abs Baso Cnt 0.0 10*3/uL Normal 0.0-0.2 [facility] Comment on above: Performed By: #### B GLU #### [facility] [address] [place], [place] Abs Neutrophile Cnt 7.6 10*3/uL High 1.8-7.0 [facility] Comment on above: Performed By: #### B GLU #### [facility] [address] [place] [phone] Basophils/100 WBC (Bld) 0.4 % Normal 0.0-2.0 [facility] Comment on above: Performed By: #### B GLU #### [facility] [address] [place] [address] Eosinophils (Bld) [#/Vol] 0.1 10*3/uL Normal 0.0-0.5 [facility] Comment on above: Performed By: #### B GLU #### [facility] [address] [place] [phone] Eosinophils/100 WBC (Bld) 0.9 % Low 1.0-6.0 [facility] Comment on above: Performed By: #### B GLU #### [facility] [address] [place] [phone] Erythrocyte distribution width (RBC) [Ratio] 14.1 % Normal 11.5-14.5 [facility] Comment on above: Performed By: #### B GLU #### [address] [address] [place] Granulocytes/100 WBC (Bld) 68.6 % Normal 40.0-80.0 [facility] Comment on above: Performed By: #### B GLU #### [address] [address] [place] Hematocrit (Bld) [Volume fraction] 36.5 % Normal 35.0-47.0 [facility] Comment on above: Performed By: #### B GLU #### [address] [address] [address] [place] Hemoglobin (Bld) [Mass/Vol] 12.0 g/dL Normal 11.7-16.0 [facility] Comment on above: Performed By: #### B GLU #### [address] [address] [address] [place] Lymphocytes (Bld) [#/Vol] 2.6 10*3/uL Normal 1.0-4.3 [facility] Comment on above: Performed By: #### B GLU #### [address] [address] [address] [place] Lymphocytes/100 WBC (Bld) 23.4 % Normal 20.0-40.0 [facility] Comment on above: Performed By: #### B GLU #### [address] [address] [address] [place] MCH (RBC) [Entitic mass] 28.7 pg Normal 26.0-34.0 [facility] Comment on above: Performed By: #### B GLU #### [address] [address] [address] [place] MCHC 33.0 % Normal 32.0-36.0 [facility] Comment on above: Performed By: #### B GLU #### [address] [place] MCV (RBC) [Entitic vol] 87.1 fL Normal 79.0-98.0 [facility] Comment on above: Performed By: #### B GLU #### [facility] [address] [address] Monocytes (Bld) [#/Vol] 0.7 10*3/uL Normal 0.0-0.8 [facility] Comment on above: Performed By: #### B GLU #### [address] [phone] Monocytes/100 WBC (Bld) 6.7 % Normal 2.0-10.0 [facility] [facility] Comment on above: Performed By: #### B GLU #### [facility] [employer] [facility] [place] [address] Platelet mean volume (Bld) [Entitic vol] 10.3 fL Normal 7.4-10.4 [facility] [employer] Comment on above: Performed By: #### B GLU #### [facility] [employer] [address] [address] Platelets (Bld) [#/Vol] 176 10*3/uL Normal 140-440 [facility] [employer] Comment on above: Performed By: #### B GLU #### [facility] [employer] [address] [address] RBC (Bld) [#/Vol] 4.19 10*6/uL Normal 3.80-5.20 [facility] [employer] Comment on above: Performed By: #### B GLU #### [facility] [employer] [address] [address] WBC (Bld) [#/Vol] 11.0 10*3/uL High 3.6-10.7 [facility] [employer] Comment on above: Performed By: #### B GLU #### [facility] [employer] [address] [address] TS GELon 02-18-2021 TS GEL ABO Group: A Rh, Gel: POS Antibody Screen Gel: NEG Normal [facility] [employer] Comment on above: Performed By: #### T SGL #### [facility] TYPE AND SCREENOrdered By: Yashira Wright on 02-18-2021 ABO Grouping A [facility] Work Phone: Rh Type Positive [facility] Work Phone: Test Performed by [facility], [address] [place] [address] [facility] Work Phone: [facility] Work Phone: [facility] US Biophy w/o non- stresson 02-15-2021 MFM US Biophy w/o non-stress Patient Name: RAYMOND BROWNLEE Maternal Medicine ACCESSION EXAM DATE/TIME PROCEDURE ORDERING PROVIDER [id number] 02/15/2021 09:10 EDT [facility] US Biophy w/o [id number] -ROSEMARIE BARILLAS non-stress Reason For Exam ([facility] US Biophy w/o non-stress) oligohydramnios Report OBSTETRICS REPORT (Signed Final 02/15/2021 06:00 pm) Patient Info ID #: [id number] : [birth year] (20 yrs) Name: RAYMOND BROWNLEE Visit Date: 02/15/2021 09:05 am Performed By Attending: Francesca López Referred By: SPIKE ANDERSON DO, FACOG Performed By: Mirna Milan Visit Type: Inpatient - [facility] Service(s) Provided BPP w/out NST 10770 Indications Oligohydramnios Vital Signs Height: 5'8 Evaluation Num Of Fetuses: 1 Heart Rate(bpm): 130 Cardiac Activity: Regular rhythm Lie: Longitudinal Presentation: Cephalic Placenta: Anterior Amniotic Fluid JUAN FV: Oligohydramnios JUAN Sum(cm) %Tile Largest Pocket(cm) 5.4 < 3 3.4 RUQ(cm) RLQ(cm) 3.4 2 Biophysical Evaluation -- Amniotic F.V: pocket => 2 cm two F. Tone: Observed Maternal Medicine Report planes F. Movement: Observed Score: 8/8 F. Breathing: Observed Gestational Age Clinical LOC: 28w 6d LOC: 05/04/21 Best: 28w 6d Det. By: Clinical LOC LOC: 05/04/21 Anatomy ------- Stomach: Normal appearance Bladder: Normal appearance Impression - Quiñones live intrauterine at 28w 6d with PPROM. - The amniotic fluid index is 5.4cm. - Reassuring BPP. Recommendations Follow-up as clinically indicated. Ultrasound is not diagnostic of chromosomal aneuploidy and does not detect all subtle defects. Normal ultrasound findings do not guarantee normal outcomes. Francesca López DO, FACOG Electronically Signed Final Report 02/15/2021 06:00 pm Final Dictated: 02/15/2021 9:05 am Dictating Physician: DO LÓPEZ KATHERINE BRIDGET Signed Date and Time: 02/15/2021 6:00 pm Signed by: DO LÓPEZ KATHERINE BRIDGET Ultrasound ACCESSION EXAM DATE/TIME PROCEDURE ORDERING PROVIDER [id number] 02/15/2021 09:10 EDT [facility] US Biophy w/o [id number] -ROSEMARIE BARILLAS non-stress Reason For Exam ([facility]FM US Biophy w/o non-stress) oligohydramnios Report OBSTETRICS REPORT (Signed Final 02/15/2021 06:00 pm) Patient Info ID #: [id number] : [birth year] (20 yrs) Name: RAYMOND BROWNLEE Visit Date: 02/15/2021 09:05 am Performed By Attending: Francesca López Referred By: SPIKE ANDERSON DO, FACOG Performed By: Mirna Milan Visit Type: [facility] Ultrasound Report Service(s) Provided BPP w/out NST 39277 Indications Oligohydramnios Vital Signs Height: 5'8 Evaluation Num Of Fetuses: 1 Heart Rate(bpm): 130 Cardiac Activity: Regular rhythm Lie: Longitudinal Presentation: Cephalic Placenta: Anterior Amniotic Fluid JUAN FV: Oligohydramnios JUAN Sum(cm) %Tile Largest Pocket(cm) 5.4 < 3 3.4 RUQ(cm) RLQ(cm) 3.4 2 Biophysical Evaluation -- Amniotic F.V: pocket => 2 cm two F. Tone: Observed planes F. Movement: Observed Score: 8/8 F. Breathing: Observed Gestational Age Clinical LOC: 28w 6d LOC: 05/04/21 Best: 28w 6d Det. By: Clinical LOC LOC: 05/04/21 Anatomy ------- Stomach: Normal appearance Bladder: Normal appearance Impression - Quiñones live intrauterine at 28w 6d with PPROM. - The amniotic fluid index is 5.4cm. - Reassuring BPP. Recommendations Follow-up as clinically indicated. Ultrasound is not diagnostic of chromosomal aneuploidy and does not detect all subtle defects. Normal ultrasound findings do not guarantee normal outcomes. Francesca López DO, FACOG Ultrasound Report Electronically Signed Final Report 02/15/2021 06:00 pm Final Dictated: 02/15/2021 9:05 am Dictating Physician: DO LÓPEZ KATHERINE BRIDGET Signed Date and Time: 02/15/2021 6:00 pm Signed by: DO LÓPEZ KATHERINE BRIDGET [facility] TS GELon 02-15-2021 TS GEL ABO Group: A Rh, Gel: POS Antibody Screen Gel: NEG Normal [facility] Comment on above: Performed By: #### B GLU #### [facility] [employer] [address] [place] [phone] TYPE AND SCREENOrdered By: Yashira Wright on 02-15-2021 ABO Grouping A [facility] Work Phone: Rh Type Positive [facility] Work Phone: Test Performed by [facility] [address] [facility] Work Phone: [facility] Work Phone: US BIOPHYSICAL PROFILE WO NON STRESS TESTINGOrdered By: Rosemarie Barillas on 02-15-2021 Patient Name: RAYMOND BROWNLEE Maternal Medicine ACCESSION EXAM DATE/TIME PROCEDURE ORDERING PROVIDER [id number] 02/15/2021 09:10 EDT [facility] US Biophy w/o [id number] -ROSEMARIE BARILLAS non-stress Reason For Exam ([facility] US Biophy w/o non-stress) oligohydramnios Report OBSTETRICS REPORT (Signed Final 02/15/2021 06:00 pm) Patient Info ID #: [id number] : [birth year] (20 yrs) Name: RAYMOND BROWNLEE Visit Date: 02/15/2021 09:05 am Performed By Attending: Francesca López Referred By: SPIKE ANDERSON DO FACOG Performed By: Mirna Milan Visit Type: Inpatient - [facility] Service(s) Provided BPP w/out NST 26312 Indications Oligohydramnios Vital Signs Height: 5'8 Evaluation Num Of Fetuses: 1 Heart Rate(bpm): 130 Cardiac Activity: Regular rhythm Lie: Longitudinal Presentation: Cephalic Placenta: Anterior Amniotic Fluid JUAN FV: Oligohydramnios JUAN Sum(cm) %Tile Largest Pocket(cm) 5.4 < 3 3.4 RUQ(cm) RLQ(cm) 3.4 2 Biophysical Evaluation -- Amniotic F.V: pocket => 2 cm two F. Tone: Observed Maternal Medicine Report planes F. Movement: Observed Score: 8/8 F. Breathing: Observed Gestational Age Clinical LOC: 28w 6d LOC: 05/04/21 Best: 28w 6d Det. By: Clinical LOC LOC: 05/04/21 Anatomy ------- Stomach: Normal appearance Bladder: Normal appearance Impression - Quiñones live intrauterine at 28w 6d with PPROM. - The amniotic fluid index is 5.4cm. - Reassuring BPP. Recommendations Follow-up as clinically indicated. Ultrasound is not diagnostic of chromosomal aneuploidy and does not detect all subtle defects. Normal ultrasound findings do not guarantee normal outcomes. Francesca López DO, FACOG Electronically Signed Final Report 02/15/2021 06:00 pm --- Final --- Dictated: 02/15/2021 9:05 am Dictating Physician: DO LÓPEZ KATHERINE BRIDGET Signed Date and Time: 02/15/2021 6:00 pm Signed by: DO LÓPEZ KATHERINE BRIDGET Ultrasound ACCESSION EXAM DATE/TIME PROCEDURE ORDERING PROVIDER [id number] 02/15/2021 09:10 EDT [facility] US Biophy w/o [id number] -ROSEMARIE BARILLAS non-stress Reason For Exam ([facility] US Biophy w/o non-stress) oligohydramnios Report OBSTETRICS REPORT (Signed Final 02/15/2021 06:00 pm) Patient Info ID #: [id number] : [birth year] (20 yrs) Name: RAYMOND BROWNLEE Visit Date: 02/15/2021 09:05 am Performed By Attending: Francesca López Referred By: SPIKE ANDERSON DO, FACOG Performed By: Mirna Milan Visit Type: Inpatient - [facility] Ultrasound Report Service(s) Provided BPP w/out NST 17928 Indications Oligohydramnios Vital Signs Height: 5'8 Evaluation Num Of Fetuses: 1 Heart Rate(bpm): 130 Cardiac Activity: Regular rhythm Lie: Longitudinal Presentation: Cephalic Placenta: Anterior Amniotic Fluid JUAN FV: Oligohydramnios JUAN Sum(cm) %Tile Largest Pocket(cm) 5.4 < 3 3.4 RUQ(cm) RLQ(cm) 3.4 2 Biophysical Evaluation -- Amniotic F.V: pocket => 2 cm two F. Tone: Observed planes F. Movement: Observed Score: 8/8 F. Breathing: Observed Gestational Age Clinical LOC: 28w 6d LOC: 05/04/21 Best: 28w 6d Det. By: Clinical LOC LOC: 05/04/21 Anatomy ------- Stomach: Normal appearance Bladder: Normal appearance Impression - Quiñones live intrauterine at 28w 6d with PPROM. - The amniotic fluid index is 5.4cm. - Reassuring BPP. Recommendations Follow-up as clinically indicated. Ultrasound is not diagnostic of chromosomal aneuploidy and does not detect all subtle defects. Normal ultrasound findings do not guarantee normal outcomes. Francesca López DO, FACOG Ultrasound Report Electronically Signed Final Report (more content not included)... [facility] Work Phone: [facility], [facility] Incoming Radiology Results From [facility] - 02/15/2021 6:00 PM EDT Patient Name: RAYMOND BROWNLEE Maternal Medicine ACCESSION EXAM DATE/TIME PROCEDURE ORDERING PROVIDER [id number] 02/15/2021 09:10 EDT [facility] US Biophy w/o [id number] -ROSEMARIE BARILLAS non-stress Reason For Exam ([facility] US Biophy w/o non-stress) oligohydramnios Report OBSTETRICS REPORT (Signed Final 02/15/2021 06:00 pm) Patient Info ID #: [id number] : [birth year] (20 yrs) Name: RAYMOND BROWNLEE Visit Date: 02/15/2021 09:05 am Performed By Attending: Francesca López Referred By: SPIKE ANDERSON DO, FACOG Performed By: Mirna Milan Visit Type: Inpatient - [facility] Service(s) Provided BPP w/out NST 32037 Indications Oligohydramnios Vital Signs Height: 5'8 Evaluation Num Of Fetuses: 1 Heart Rate(bpm): 130 Cardiac Activity: Regular rhythm Lie: Longitudinal Presentation: Cephalic Placenta: Anterior Amniotic Fluid JUAN FV: Oligohydramnios JUAN Sum(cm) %Tile Largest Pocket(cm) 5.4 < 3 3.4 RUQ(cm) RLQ(cm) 3.4 2 Biophysical Evaluation -- Amniotic F.V: pocket => 2 cm two F. Tone: Observed Maternal Medicine Report planes F. Movement: Observed Score: 8/8 F. Breathing: Observed Gestational Age Clinical LOC: 28w 6d LOC: 05/04/21 Best: 28w 6d Det. By: Clinical LOC LOC: 05/04/21 Anatomy ------- Stomach: Normal appearance Bladder: Normal appearance Impression - Quiñones live intrauterine at 28w 6d with PPROM. - The amniotic fluid index is 5.4cm. - Reassuring BPP. Recommendations Follow-up as clinically indicated. Ultrasound is not diagnostic of chromosomal aneuploidy and does not detect all subtle defects. Normal ultrasound findings do not guarantee normal outcomes. Francesca López, DO, FACOG Electronically Signed Final Report 02/15/2021 06:00 pm --- Final --- Dictated: 02/15/2021 9:05 am Dictating Physician: DO LÓPEZ KATHERINE BRIDGET Signed Date and Time: 02/15/2021 6:00 pm Signed by: DO LÓPEZ KATHERINE BRIDGET Ultrasound ACCESSION EXAM DATE/TIME PROCEDURE ORDERING PROVIDER [id number] 02/15/2021 09:10 EDT [facility] US Biophy w/o [id number] -ROSEMARIE BARILLAS non-stress Reason For Exam ([facility] US Biophy w/o non-stress) oligohydramnios Report OBSTETRICS REPORT (Signed Final 02/15/2021 06:00 pm) Patient Info ID #: [id number] : [birth year] (20 yrs) Name: RAYMOND BROWNLEE Visit Date: 02/15/2021 09:05 am Performed By Attending: Francesca López Referred By: SPIKE ANDERSON DO, FACOG Performed By: Mirna Milan Visit Type: [facility] Ultrasound Report Service(s) Provided BPP w/out NST 75421 Indications Oligohydramnios Vital Signs Height: 5'8 Evaluation Num Of Fetuses: 1 Heart Rate(bpm): 130 Cardiac Activity: Regular rhythm Lie: Longitudinal Presentation: Cephalic Placenta: Anterior Amniotic Fluid JUAN FV: Oligohydramnios JUAN Sum(cm) %Tile Largest Pocket(cm) 5.4 < 3 3.4 RUQ(cm) RLQ(cm) 3.4 2 Biophysical Evaluation -- Amniotic F.V: pocket => 2 cm two F. Tone: Observed planes F. Movement: Observed Score: 8/8 F. Breathing: Observed Gestational Age Clinical LOC: 28w 6d LOC: 05/04/21 Best: 28w 6d Det. By: Clinical LOC LOC: 05/04/21 Anatomy ------- Stomach: Normal appearance Bladder: Normal appearance Impression - Quiñones live intrauterine at 28w 6d with PPROM. - The amniotic fluid index is 5.4cm. - Reassuring BPP. Recommendations Follow-up as clinically indicated. Ultrasound is not diagnostic of chromosomal aneuploidy and does not detect all subtle defects. Normal ultrasound findings do not guarantee normal outcomes. Francesca López DO, FACOG Ultrasound Report Electronically Signed Final Report 02/15/2021 06:00 pm --- Final --- Dictated: 02/15/2021 9:05 am Dictating Physician: DO LÓPEZ KATHERINE BRIDGET Signed Date and Time: 02/15/2021 6:00 pm Signed by: DO LÓPEZ KATHERINE BRIDGET [facility] Work Phone: [facility] Work Phone: TS GELon 02-12-2021 TS GEL ABO Group: A Rh, Gel: POS Antibody Screen Gel: NEG Normal [facility] Comment on above: Performed By: #### B GLU #### [facility] [address] [place] [phone] TYPE AND SCREENOrdered By: Yashira Wright on 02-12-2021 ABO Grouping A [facility] Work Phone: Rh Type Positive [facility] Work Phone: Test Performed by [facility], [address] [place] [address] [facility] Work Phone: [facility] Work Phone: [facility] US Biophy w/o non- stresson 02-10-2021 MFM US Biophy w/o non-stress Patient Name: RAYMOND BROWNLEE Maternal Medicine ACCESSION EXAM DATE/TIME PROCEDURE ORDERING PROVIDER [id number] 02/10/2021 08:27 EDT MFM US Biophy w/o SPIKE ANDERSON non-stress Reason For Exam ([facility] US Biophy w/o non-stress) PPROM Report OBSTETRICS REPORT (Signed Final 02/10/2021 04:21 pm) Patient Info ID #: [id number] : [birth year] (20 yrs) Name: RAYMOND BROWNLEE Visit Date: 02/10/2021 08:29 am Performed By Attending: Francesca López Location: [facility] Performed By: Gina Hodges [facility] Visit Type: Inpatient - [facility] Referred By: SPIKE ANDERSON Service(s) [place] [address] BPP w/out NST 30519 Indications PPROM Vital Signs Weight (lb): 180 Height: 5'8 BMI: 27.37 Evaluation Num Of Fetuses: 1 Heart Rate(bpm): 132 Cardiac Activity: Regular rhythm Lie: Longitudinal Presentation: Cephalic Placenta: Anterior Amniotic Fluid JUAN FV: Oligohydramnios JUAN Sum(cm) %Tile Largest Pocket(cm) 2 < 3 2 RUQ(cm) 2 Maternal Medicine Report Comment: Single 2 x 2cm pocket Rt DIEUDONNE Biophysical Evaluation -- Amniotic F.V: within normal limits F. Tone: Observed F. Movement: Observed Score: 8/8 F. Breathing: Observed Biometry -------- BPD: 71 mm G. Age: 28w 4d 50 % CI: 72.7 % 70 - 86 OFD: 97.7 mm FL/HC: 18.7 % 18.8 - 20.6 HC: 271 mm G. Age: 29w 4d 63 % HC/AC: 1.19 1.05 - 1.21 AC: 227.4 mm G. Age: 27w 1d 17 % FL/BPD: 71.3 % 71 - 87 FL: 50.6 mm G. Age: 27w 1d 12 % FL/AC: 22.3 % 20 - 24 LV: 7.36 mm Est. FW: 1076 gm 2 lb 6 oz 42 % Gestational Age Clinical LOC: 28w 1d LOC: 05/04/21 U/S Today: 28w 1d LOC: 05/04/21 Best: 28w 1d Det. By: Clinical LOC LOC: 05/04/21 Anatomy ------- Cranium: Normal appearance LVOT: Normal appearance Cavum: Normal appearance Aortic Arch: Normal appearance Ventricles: Normal appearance Ductal Arch: Normal appearance Choroid Plexus: Normal appearance Diaphragm: Normal appearance Cerebellum: Normal appearance Stomach: Normal appearance Posterior Fossa: Normal appearance Abdomen: Normal appearance Nuchal Fold: Suboptimal views Abdominal Wall: Normal appearance Face: Normal appearance Cord Vessels: Normal 3-Vessel Cord Lips: Suboptimal views Kidneys: Normal appearance Palate: Suboptimal views Bladder: Normal appearance Thoracic: Normal appearance Spine: Suboptimal views Heart: Normal appearance Upper Extremities: Present RVOT: Normal appearance Lower Extremities: Present Impression Quiñones live intrauterine at 28w 1d. Normal growth; EFW 1076 grams, which is at the 42% for this gestational age. The amniotic fluid index is 2 cm, which is within normal limits. Reassuring BPP. Recommendations See inpatient chart. Ultrasound is not diagnostic of chromosomal aneuploidy and does not detect all subtle defects. Normal ultrasound findings do not guarantee normal outcomes. Francesca López DO, FACOG Maternal Medicine Report Electronically Signed Final Report 02/10/2021 04:21 pm Final Dictated: 02/10/2021 8:29 am Dictating Physician: DO LÓPEZ KATHERINE BRIDGET Signed Date and Time: 02/10/2021 4:22 pm Signed by: DO LÓPEZ KATHERINE BRIDGET Ultrasound ACCESSION EXAM DATE/TIME PROCEDURE ORDERING PROVIDER [id number] 02/10/2021 08:27 EDT [facility] US Biophy w/o SPIKE ANDERSON non-stress Reason For Exam ([facility] US Biophy w/o non-stress) PPROM Report OBSTETRICS REPORT (Signed Final 02/10/2021 04:21 pm) Patient Info ID #: [id number] : [birth year] (20 yrs) Name: RAYMOND BROWNLEE Visit Date: 02/10/2021 08:29 am Performed By Attending: Francesca López Location: [facility] Performed By: Gina Hodges [facility] Visit Type: Inpatient - WITS Referred By: SPIKE ANDERSON Service(s) [place] [address] BPP w/out NST 46708 Indications PPROM Vital Signs Weight (lb): 180 Height: 5'8 BMI: 27.37 Evaluation Num Of Fetuses: 1 Heart Rate(bpm): 132 Cardiac Activity: Regular rhythm Lie: Longitudinal Presentation: Cephalic Placenta: Anterior Amniotic Fluid JUAN FV: Oligohydramnios Ultrasound Report JUAN Sum(cm) %Tile Largest Pocket(cm) 2 < 3 2 RUQ(cm) 2 Comment: Single 2 x 2cm pocket Rt DIEUDONNE Biophysical Evaluation -- Amniotic F.V: within normal limits F. Tone: Observed F. Movement: Observed Score: 8/8 F. Breathing: Observed Biometry -------- BPD: 71 mm G. Age: 28w 4d 50 % CI: 72.7 % 70 - 86 OFD: 97.7 mm FL/HC: 18.7 % 18.8 - 20.6 HC: 271 mm G. Age: 29w 4d 63 % HC/AC: (more content not included)... Normal [facility] US Follow Upon 02-10-2021 [facility] US Follow Up Patient Name: RAYMOND BROWNLEE Maternal Medicine ACCESSION EXAM DATE/TIME PROCEDURE ORDERING PROVIDER [id number] 02/10/2021 08:27 EDT [facility] US Biophy w/o SPIKE ANDERSON non-stress Reason For Exam (M US Biophy w/o non-stress) PPROM Report OBSTETRICS REPORT (Signed Final 02/10/2021 04:21 pm) Patient Info ID #: [id number] : [birth year] (20 yrs) Name: RAYMOND BROWNLEE Visit Date: 02/10/2021 08:29 am Performed By Attending: Francesca López Location: [facility], [facility] Performed By: Gina Hodges [facility] Visit Type: Inpatient - WITS Referred By: SPIKE ANDERSON Service(s) [place] [address] BPP w/out NST 84567 Indications PPROM Vital Signs Weight (lb): 180 Height: 5'8 BMI: 27.37 Evaluation Num Of Fetuses: 1 Heart Rate(bpm): 132 Cardiac Activity: Regular rhythm Lie: Longitudinal Presentation: Cephalic Placenta: Anterior Amniotic Fluid JUAN FV: Oligohydramnios JUAN Sum(cm) %Tile Largest Pocket(cm) 2 < 3 2 RUQ(cm) 2 Maternal Medicine Report Comment: Single 2 x 2cm pocket Rt DIEUDONNE Biophysical Evaluation -- Amniotic F.V: within normal limits F. Tone: Observed F. Movement: Observed Score: 8/8 F. Breathing: Observed Biometry -------- BPD: 71 mm G. Age: 28w 4d 50 % CI: 72.7 % 70 - 86 OFD: 97.7 mm FL/HC: 18.7 % 18.8 - 20.6 HC: 271 mm G. Age: 29w 4d 63 % HC/AC: 1.19 1.05 - 1.21 AC: 227.4 mm G. Age: 27w 1d 17 % FL/BPD: 71.3 % 71 - 87 FL: 50.6 mm G. Age: 27w 1d 12 % FL/AC: 22.3 % 20 - 24 LV: 7.36 mm Est. FW: 1076 gm 2 lb 6 oz 42 % Gestational Age Clinical LOC: 28w 1d LOC: 05/04/21 U/S Today: 28w 1d LOC: 05/04/21 Best: 28w 1d Det. By: Clinical LOC LOC: 05/04/21 Anatomy ------- Cranium: Normal appearance LVOT: Normal appearance Cavum: Normal appearance Aortic Arch: Normal appearance Ventricles: Normal appearance Ductal Arch: Normal appearance Choroid Plexus: Normal appearance Diaphragm: Normal appearance Cerebellum: Normal appearance Stomach: Normal appearance Posterior Fossa: Normal appearance Abdomen: Normal appearance Nuchal Fold: Suboptimal views Abdominal Wall: Normal appearance Face: Normal appearance Cord Vessels: Normal 3-Vessel Cord Lips: Suboptimal views Kidneys: Normal appearance Palate: Suboptimal views Bladder: Normal appearance Thoracic: Normal appearance Spine: Suboptimal views Heart: Normal appearance Upper Extremities: Present RVOT: Normal appearance Lower Extremities: Present Impression Quiñones live intrauterine at 28w 1d. Normal growth; EFW 1076 grams, which is at the 42% for this gestational age. The amniotic fluid index is 2 cm, which is within normal limits. Reassuring BPP. Recommendations See inpatient chart. Ultrasound is not diagnostic of chromosomal aneuploidy and does not detect all subtle defects. Normal ultrasound findings do not guarantee normal outcomes. Francesca López DO, FACOG Maternal Medicine Report Electronically Signed Final Report 02/10/2021 04:21 pm Final Dictated: 02/10/2021 8:29 am Dictating Physician: DO LÓPEZ KATHERINE BRIDGET Signed Date and Time: 02/10/2021 4:22 pm Signed by: DO LÓPEZ KATHERINE BRIDGET Ultrasound ACCESSION EXAM DATE/TIME PROCEDURE ORDERING PROVIDER [id number] 02/10/2021 08:27 EDT [facility] US Biophy w/o SPIKE ANDERSON non-stress Reason For Exam (M US Biophy w/o non-stress) PPROM Report OBSTETRICS REPORT (Signed Final 02/10/2021 04:21 pm) Patient Info ID #: [id number] : [birth year] (20 yrs) Name: RAYMOND BROWNLEE Visit Date: 02/10/2021 08:29 am Performed By Attending: Francesca López Location: [facility], [facility] Performed By: Gina Hodges [facility] Visit Type: Inpatient - WITS Referred By: SPIKE ANDERSON Service(s) [place] [address] BPP w/out NST 84910 Indications PPROM Vital Signs Weight (lb): 180 Height: 5'8 BMI: 27.37 Evaluation Num Of Fetuses: 1 Heart Rate(bpm): 132 Cardiac Activity: Regular rhythm Lie: Longitudinal Presentation: Cephalic Placenta: Anterior Amniotic Fluid JUAN FV: Oligohydramnios Ultrasound Report JUAN Sum(cm) %Tile Largest Pocket(cm) 2 < 3 2 RUQ(cm) 2 Comment: Single 2 x 2cm pocket Rt DIEUDONNE Biophysical Evaluation -- Amniotic F.V: within normal limits F. Tone: Observed F. Movement: Observed Score: 8/8 F. Breathing: Observed Biometry -------- BPD: 71 mm G. Age: 28w 4d 50 % CI: 72.7 % 70 - 86 OFD: 97.7 mm FL/HC: 18.7 % 18.8 - 20.6 HC: 271 mm G. Age: 29w 4d 63 % HC/AC: (more content not included)... Normal [facility] US BIOPHYSICAL PROFILE WO NON STRESS TESTINGOrdered By: Spike Anderson on 02-10-2021 Patient Name: RAYMOND BROWNLEE Maternal Medicine ACCESSION EXAM DATE/TIME PROCEDURE ORDERING PROVIDER [id number] 02/10/2021 08:27 EDT [facility] US Biophy w/o SPIKE ANDERSON non-stress Reason For Exam ([facility] US Biophy w/o non-stress) PPROM Report OBSTETRICS REPORT (Signed Final 02/10/2021 04:21 pm) Patient Info ID #: [id number] : [birth year] (20 yrs) Name: RAYMOND BROWNLEE Visit Date: 02/10/2021 08:29 am Performed By Attending: Francesca Lpóez Location: [facility], [facility] Performed By: Gina Hodges [facility] Visit Type: Inpatient - WITS Referred By: SPIKE ANDERSON Service(s) [place] [address] BPP w/out NST 65838 Indications PPROM Vital Signs Weight (lb): 180 Height: 5'8 BMI: 27.37 Evaluation Num Of Fetuses: 1 Heart Rate(bpm): 132 Cardiac Activity: Regular rhythm Lie: Longitudinal Presentation: Cephalic Placenta: Anterior Amniotic Fluid JUAN FV: Oligohydramnios JUAN Sum(cm) %Tile Largest Pocket(cm) 2 < 3 2 RUQ(cm) 2 Maternal Medicine Report Comment: Single 2 x 2cm pocket Rt DIEUDONNE Biophysical Evaluation -- Amniotic F.V: within normal limits F. Tone: Observed F. Movement: Observed Score: 8/8 F. Breathing: Observed Biometry -------- BPD: 71 mm G. Age: 28w 4d 50 % CI: 72.7 % 70 - 86 OFD: 97.7 mm FL/HC: 18.7 % 18.8 - 20.6 HC: 271 mm G. Age: 29w 4d 63 % HC/AC: 1.19 1.05 - 1.21 AC: 227.4 mm G. Age: 27w 1d 17 % FL/BPD: 71.3 % 71 - 87 FL: 50.6 mm G. Age: 27w 1d 12 % FL/AC: 22.3 % 20 - 24 LV: 7.36 mm Est. FW: 1076 gm 2 lb 6 oz 42 % Gestational Age Clinical LOC: 28w 1d LOC: 05/04/21 U/S Today: 28w 1d LOC: 05/04/21 Best: 28w 1d Det. By: Clinical LOC LOC: 05/04/21 Anatomy ------- Cranium: Normal appearance LVOT: Normal appearance Cavum: Normal appearance Aortic Arch: Normal appearance Ventricles: Normal appearance Ductal Arch: Normal appearance Choroid Plexus: Normal appearance Diaphragm: Normal appearance Cerebellum: Normal appearance Stomach: Normal appearance Posterior Fossa: Normal appearance Abdomen: Normal appearance Nuchal Fold: Suboptimal views Abdominal Wall: Normal appearance Face: Normal appearance Cord Vessels: Normal 3-Vessel Cord Lips: Suboptimal views Kidneys: Normal appearance Palate: Suboptimal views Bladder: Normal appearance Thoracic: Normal appearance Spine: Suboptimal views Heart: Normal appearance Upper Extremities: Present RVOT: Normal appearance Lower Extremities: Present Impression Quiñones live intrauterine at 28w 1d. Normal growth; EFW 1076 grams, which is at the 42% for this gestational age. The amniotic fluid index is 2 cm, which is within normal limits. Reassuring BPP. Recommendations See inpatient chart. Ultrasound is not diagnostic of chromosomal aneuploidy and does not detect all subtle defects. Normal ultrasound findings do not guarantee normal outcomes. Francesca López DO, FACOG Maternal Medicine Report Electronically Signed Final Report 02/10/2021 04:21 pm --- Final --- Dictated: 02/10/2021 8:29 am Dictating Physician: DO LÓPEZ KATHERINE BRIDGET Signed Date and Time: 02/10/2021 4:22 pm Signed by: DO LÓPEZ KATHERINE BRIDGET Ultrasound ACCESSION EXAM DATE/TIME PROCEDURE ORDERING PROVIDER [id number] 02/10/2021 08:27 EDT [facility] US Biophy w/o MONICASPIKE KIRBY non-stress Reason For Exam ([facility] US Biophy w/o non-stress) PPROM Report OBSTETRICS REPORT (Signed Final 02/10/2021 04:21 pm) Patient Info (more content not included)... [facility] Work Phone: [facility], [facility] Incoming Radiology Results From [facility] - 02/10/2021 4:22 PM EDT Patient Name: RAYMOND BROWNLEE Maternal Medicine ACCESSION EXAM DATE/TIME PROCEDURE ORDERING PROVIDER [id number] 02/10/2021 08:27 EDT [facility] US Biophy w/o SPIKE ANDERSON non-stress Reason For Exam ([facility] US Biophy w/o non-stress) PPROM Report OBSTETRICS REPORT (Signed Final 02/10/2021 04:21 pm) Patient Info ID #: [id number] : [birth year] (20 yrs) Name: RAYMOND BROWNLEE Visit Date: 02/10/2021 08:29 am Performed By Attending: Francesca López Location: [facility], [facility] Performed By: Gina Hodges [facility] Visit Type: Inpatient - WITS Referred By: SPIKE ANDERSON Service(s) [place] [address] BPP w/out NST 18034 Indications PPROM Vital Signs Weight (lb): 180 Height: 5'8 BMI: 27.37 Evaluation Num Of Fetuses: 1 Heart Rate(bpm): 132 Cardiac Activity: Regular rhythm Lie: Longitudinal Presentation: Cephalic Placenta: Anterior Amniotic Fluid JUAN FV: Oligohydramnios JUAN Sum(cm) %Tile Largest Pocket(cm) 2 < 3 2 RUQ(cm) 2 Maternal Medicine Report Comment: Single 2 x 2cm pocket Rt DIEUDONNE Biophysical Evaluation -- Amniotic F.V: within normal limits F. Tone: Observed F. Movement: Observed Score: 03/20 F. Breathing: Observed Biometry -------- BPD: 71 mm G. Age: 28w 4d 50 % CI: 72.7 % 70 - 86 OFD: 97.7 mm FL/HC: 18.7 % 18.8 - 20.6 HC: 271 mm G. Age: 29w 4d 63 % HC/AC: 1.19 1.05 - 1.21 AC: 227.4 mm G. Age: 27w 1d 17 % FL/BPD: 71.3 % 71 - 87 FL: 50.6 mm G. Age: 27w 1d 12 % FL/AC: 22.3 % 20 - 24 LV: 7.36 mm Est. FW: 1076 gm 2 lb 6 oz 42 % Gestational Age Clinical LOC: 28w 1d LOC: 05/04/21 U/S Today: 28w 1d LOC: 05/04/21 Best: 28w 1d Det. By: Clinical LOC LOC: 05/04/21 Anatomy ------- Cranium: Normal appearance LVOT: Normal appearance Cavum: Normal appearance Aortic Arch: Normal appearance Ventricles: Normal appearance Ductal Arch: Normal appearance Choroid Plexus: Normal appearance Diaphragm: Normal appearance Cerebellum: Normal appearance Stomach: Normal appearance Posterior Fossa: Normal appearance Abdomen: Normal appearance Nuchal Fold: Suboptimal views Abdominal Wall: Normal appearance Face: Normal appearance Cord Vessels: Normal 3-Vessel Cord Lips: Suboptimal views Kidneys: Normal appearance Palate: Suboptimal views Bladder: Normal appearance Thoracic: Normal appearance Spine: Suboptimal views Heart: Normal appearance Upper Extremities: Present RVOT: Normal appearance Lower Extremities: Present Impression Quiñones live intrauterine at 28w 1d. Normal growth; EFW 1076 grams, which is at the 42% for this gestational age. The amniotic fluid index is 2 cm, which is within normal limits. Reassuring BPP. Recommendations See inpatient chart. Ultrasound is not diagnostic of chromosomal aneuploidy and does not detect all subtle defects. Normal ultrasound findings do not guarantee normal outcomes. Francesca López DO, FACOG Maternal Medicine Report Electronically Signed Final Report 02/10/2021 04:21 pm --- Final --- Dictated: 02/10/2021 8:29 am Dictating Physician: DO LÓPEZ KATHERINE BRIDGET Signed Date and Time: 02/10/2021 4:22 pm Signed by: DO LÓPEZ KATHERINE BRIDGET Ultrasound ACCESSION EXAM DATE/TIME PROCEDURE ORDERING PROVIDER [id number] 02/10/2021 08:27 EDT [facility] US Biophy w/o SPIKE ANDERSON non-stress Reason For Exam ([facility] US Biophy w/o non-stress) PPROM Report OBSTETRICS REPORT (Signed Final 02/10/2021 04:21 pm) Patient Info ID #: [id number] : [birth year] (20 yrs) Name: RAYMOND BROWNLEE Visit Date: 02/10/2021 08:29 am Performed By Attending: Francesca López Location: [facility] Performed By: Gina Hodges [facility] Visit Type: Inpatient - WITS Referred By: SPIKE ANDERSON Service(s) [place] [address] BPP w/out NST 19249 Indications PPROM Vital Signs Weight (lb): 180 Height: 5'8 BMI: 27.37 Evaluation Num Of Fetuses: 1 Heart Rate(bpm): 132 Cardiac Activity: Regular rhythm Lie: Longitudinal Presentation: Cephalic Placenta: Anterior Amniotic Fluid JUAN FV: Oligohydramnios Ultrasound Report JUAN Sum(cm) %Tile Largest Pocket(cm) 2 < 3 2 RUQ(cm) 2 Comment: Single 2 x 2cm pocket Rt DIEUDONNE Biophysical Evaluation -- Amniotic F.V: within normal limits F. Tone: Observed F. Movement: Ob (more content not included)... [facility] Work Phone: [facility] Work Phone: US OB FOLLOW UP TRANSABDOMIN AL APPROACHOrdered By: Spike Anderson on 02-10-2021 Patient Name: RAYMOND BROWNLEE Maternal Medicine ACCESSION EXAM DATE/TIME PROCEDURE ORDERING PROVIDER [id number] 02/10/2021 08:27 EDT [facility] US Biophy w/o SPIKE ANDERSON non-stress Reason For Exam ([facility] US Biophy w/o non-stress) PPROM Report OBSTETRICS REPORT (Signed Final 02/10/2021 04:21 pm) Patient Info ID #: [id number] : [birth year] (20 yrs) Name: RAYMOND BROWNLEE Visit Date: 02/10/2021 08:29 am Performed By Attending: Francesca López Location: [facility], [facility] Performed By: Gina Hodges [facility] Visit Type: Inpatient - WITS Referred By: SPIKE ANDERSON Service(s) [place] [address] BPP w/out NST 33920 Indications PPROM Vital Signs Weight (lb): 180 Height: 5'8 BMI: 27.37 Evaluation Num Of Fetuses: 1 Heart Rate(bpm): 132 Cardiac Activity: Regular rhythm Lie: Longitudinal Presentation: Cephalic Placenta: Anterior Amniotic Fluid JUAN FV: Oligohydramnios JUAN Sum(cm) %Tile Largest Pocket(cm) 2 < 3 2 RUQ(cm) 2 Maternal Medicine Report Comment: Single 2 x 2cm pocket Rt DIEUDONNE Biophysical Evaluation -- Amniotic F.V: within normal limits F. Tone: Observed F. Movement: Observed Score: 8/8 F. Breathing: Observed Biometry -------- BPD: 71 mm G. Age: 28w 4d 50 % CI: 72.7 % 70 - 86 OFD: 97.7 mm FL/HC: 18.7 % 18.8 - 20.6 HC: 271 mm G. Age: 29w 4d 63 % HC/AC: 1.19 1.05 - 1.21 AC: 227.4 mm G. Age: 27w 1d 17 % FL/BPD: 71.3 % 71 - 87 FL: 50.6 mm G. Age: 27w 1d 12 % FL/AC: 22.3 % 20 - 24 LV: 7.36 mm Est. FW: 1076 gm 2 lb 6 oz 42 % Gestational Age Clinical LOC: 28w 1d LOC: 05/04/21 U/S Today: 28w 1d LOC: 05/04/21 Best: 28w 1d Det. By: Clinical LOC LOC: 05/04/21 Anatomy ------- Cranium: Normal appearance LVOT: Normal appearance Cavum: Normal appearance Aortic Arch: Normal appearance Ventricles: Normal appearance Ductal Arch: Normal appearance Choroid Plexus: Normal appearance Diaphragm: Normal appearance Cerebellum: Normal appearance Stomach: Normal appearance Posterior Fossa: Normal appearance Abdomen: Normal appearance Nuchal Fold: Suboptimal views Abdominal Wall: Normal appearance Face: Normal appearance Cord Vessels: Normal 3-Vessel Cord Lips: Suboptimal views Kidneys: Normal appearance Palate: Suboptimal views Bladder: Normal appearance Thoracic: Normal appearance Spine: Suboptimal views Heart: Normal appearance Upper Extremities: Present RVOT: Normal appearance Lower Extremities: Present Impression Quiñones live intrauterine at 28w 1d. Normal growth; EFW 1076 grams, which is at the 42% for this gestational age. The amniotic fluid index is 2 cm, which is within normal limits. Reassuring BPP. Recommendations See inpatient chart. Ultrasound is not diagnostic of chromosomal aneuploidy and does not detect all subtle defects. Normal ultrasound findings do not guarantee normal outcomes. Francesca López DO, FACOG Maternal Medicine Report Electronically Signed Final Report 02/10/2021 04:21 pm --- Final --- Dictated: 02/10/2021 8:29 am Dictating Physician: DO LÓPEZ KATHERINE BRIDGET Signed Date and Time: 02/10/2021 4:22 pm Signed by: DO LÓPEZ KATHERINE BRIDGET Ultrasound ACCESSION EXAM DATE/TIME PROCEDURE ORDERING PROVIDER [id number] 02/10/2021 08:27 EDT [facility] US Biophy w/o SPIKE ANDERSON non-stress Reason For Exam ([facility] US Biophy w/o non-stress) PPROM Report OBSTETRICS REPORT (Signed Final 02/10/2021 04:21 pm) Patient Info (more content not included)... [facility] Work Phone: [facility]y, [facility] Incoming Radiology Results From [facility] - 02/10/2021 4:22 PM EDT Patient Name: RAYMOND BROWNLEE Maternal Medicine ACCESSION EXAM DATE/TIME PROCEDURE ORDERING PROVIDER [id number] 02/10/2021 08:27 EDT [facility] US Biophy w/o SPIKE ANDERSON non-stress Reason For Exam ([facility] US Biophy w/o non-stress) PPROM Report OBSTETRICS REPORT (Signed Final 02/10/2021 04:21 pm) Patient Info ID #: [id number] : [birth year] (20 yrs) Name: RAYMOND BROWNLEE Visit Date: 02/10/2021 08:29 am Performed By Attending: Francesca López Location: [facility] Performed By: Gina Hodges RDMS Visit Type: Inpatient - WITS Referred By: SPIKE ANDERSON Service(s) [place] [address] BPP w/out NST 78317 Indications PPROM Vital Signs Weight (lb): 180 Height: 5'8 BMI: 27.37 Evaluation Num Of Fetuses: 1 Heart Rate(bpm): 132 Cardiac Activity: Regular rhythm Lie: Longitudinal Presentation: Cephalic Placenta: Anterior Amniotic Fluid JUAN FV: Oligohydramnios JUAN Sum(cm) %Tile Largest Pocket(cm) 2 < 3 2 RUQ(cm) 2 Maternal Medicine Report Comment: Single 2 x 2cm pocket Rt DIEUDONNE Biophysical Evaluation -- Amniotic F.V: within normal limits F. Tone: Observed F. Movement: Observed Score: 88 F. Breathing: Observed Biometry -------- BPD: 71 mm G. Age: 28w 4d 50 % CI: 72.7 % 70 - 86 OFD: 97.7 mm FL/HC: 18.7 % 18.8 - 20.6 HC: 271 mm G. Age: 29w 4d 63 % HC/AC: 1.19 1.05 - 1.21 AC: 227.4 mm G. Age: 27w 1d 17 % FL/BPD: 71.3 % 71 - 87 FL: 50.6 mm G. Age: 27w 1d 12 % FL/AC: 22.3 % 20 - 24 LV: 7.36 mm Est. FW: 1076 gm 2 lb 6 oz 42 % Gestational Age Clinical LOC: 28w 1d LOC: 05/04/21 U/S Today: 28w 1d LOC: 05/04/21 Best: 28w 1d Det. By: Clinical LOC LOC: 05/04/21 Anatomy ------- Cranium: Normal appearance LVOT: Normal appearance Cavum: Normal appearance Aortic Arch: Normal appearance Ventricles: Normal appearance Ductal Arch: Normal appearance Choroid Plexus: Normal appearance Diaphragm: Normal appearance Cerebellum: Normal appearance Stomach: Normal appearance Posterior Fossa: Normal appearance Abdomen: Normal appearance Nuchal Fold: Suboptimal views Abdominal Wall: Normal appearance Face: Normal appearance Cord Vessels: Normal 3-Vessel Cord Lips: Suboptimal views Kidneys: Normal appearance Palate: Suboptimal views Bladder: Normal appearance Thoracic: Normal appearance Spine: Suboptimal views Heart: Normal appearance Upper Extremities: Present RVOT: Normal appearance Lower Extremities: Present Impression Quiñones live intrauterine at 28w 1d. Normal growth; EFW 1076 grams, which is at the 42% for this gestational age. The amniotic fluid index is 2 cm, which is within normal limits. Reassuring BPP. Recommendations See inpatient chart. Ultrasound is not diagnostic of chromosomal aneuploidy and does not detect all subtle defects. Normal ultrasound findings do not guarantee normal outcomes. Francesca López DO, FACOG Maternal Medicine Report Electronically Signed Final Report 02/10/2021 04:21 pm --- Final --- Dictated: 02/10/2021 8:29 am Dictating Physician: DO LÓPEZ KATHERINE BRIDGET Signed Date and Time: 02/10/2021 4:22 pm Signed by: DO LÓPEZ KATHERINE BRIDGET Ultrasound ACCESSION EXAM DATE/TIME PROCEDURE ORDERING PROVIDER [id number] 02/10/2021 08:27 EDT MFM US Biophy w/o SPIKE ANDERSON non-stress Reason For Exam ([facility]FM US Biophy w/o non-stress) PPROM Report OBSTETRICS REPORT (Signed Final 02/10/2021 04:21 pm) Patient Info ID #: [id number] : [birth year] (20 yrs) Name: RAYMOND BROWNLEE Visit Date: 02/10/2021 08:29 am Performed By Attending: Francesca López Location: [facility] Performed By: Gina Hodges [facility] Visit Type: Inpatient - WITS Referred By: SPIKE ANDERSON Service(s) [place] [address] BPP w/out NST 43827 Indications PPROM Vital Signs Weight (lb): 180 Height: 5'8 BMI: 27.37 Evaluation Num Of Fetuses: 1 Heart Rate(bpm): 132 Cardiac Activity: Regular rhythm Lie: Longitudinal Presentation: Cephalic Placenta: Anterior Amniotic Fluid JUAN FV: Oligohydramnios Ultrasound Report JUAN Sum(cm) %Tile Largest Pocket(cm) 2 < 3 2 RUQ(cm) 2 Comment: Single 2 x 2cm pocket Rt DIEUDONNE Biophysical Evaluation -- Amniotic F.V: within normal limits F. Tone: Observed F. Movement: Ob (more content not included)... [place] Work Phone: [facility] Work Phone: TS GELon 02-09-2021 TS GEL ABO Group: A Rh, Gel: POS Antibody Screen Gel: NEG Normal [facility] Comment on above: Performed By: #### T SGL #### [facility] TYPE AND SCREENOrdered By: Yashira Wright on 02-09-2021 ABO Grouping A [facility] Work Phone: Rh Type Positive [facility] Work Phone: Test Performed by [facility], [address] [place] [phone] [facility] Work Phone: [facility] Work Phone: MFM US Biophy w/o non- stresson 02-07-2021 MFM US Biophy w/o non-stress Patient Name: RAYMOND BROWNLEE Maternal Medicine ACCESSION EXAM DATE/TIME PROCEDURE ORDERING PROVIDER [id number] 02/07/2021 09:14 EDT MFM US Biophy w/o SPIKE ANDERSON non-stress Reason For Exam (M US Biophy w/o non-stress) PPROM Report OBSTETRICS REPORT (Signed Final 02/07/2021 09:46 am) Patient Info ID #: [id number] : [birth year] (20 yrs) Name: RAYMOND BROWNLEE Visit Date: 02/07/2021 09:08 am Performed By Attending: Haily Lopez Referred By: SPIKE ANDERSON MD, PhD, FACOG Performed By: Norma Wallace Visit Type: Outpatient Service(s) Provided BPP w/out NST 73212 Indications PPROM Vital Signs Weight (lb): 180 Height: 5'8 BMI: 27.37 Evaluation Num Of Fetuses: 1 Heart Rate(bpm): 157 Cardiac Activity: Regular rhythm Lie: Longitudinal Presentation: Cephalic Placenta: Anterior Amniotic Fluid JUAN FV: Oligohydramnios JUAN Sum(cm) %Tile Largest Pocket(cm) 2.2 < 3 2.2 RUQ(cm) RLQ(cm) LUQ(cm) LLQ(cm) 2.2 0 0 0 Comment: 2x2 pocket present Biophysical Evaluation Maternal Medicine Report -- Amniotic F.V: within normal limits F. Tone: Observed F. Movement: Observed Score: 8/8 F. Breathing: Observed Gestational Age Clinical LOC: 27w 5d LOC: 05/04/21 Best: 27w 5d Det. By: Clinical LOC LOC: 05/04/21 Impression 1. Quiñones intrauterine at 27w 5d with known growth restriction. 2. The amniotic fluid index was 2.2cm, which is oligohydramnios. 3. Normal Anterior placenta, no evidence of placenta previa. 4.BPP 03/20. Recommendations: 1. Daily kick counts. 2. Twice weekly testing (BPP). 3. Serial growth every 2 weeks. 4. Follow previously outlined plan Ultrasound is not diagnostic for aneuploidy and will not detect all structural abnormalities. Normal ultrasound findings do not guarantee normal outcomes. Haily Lopez MD, PhD, FACOG Electronically Signed Final Report 02/07/2021 09:46 am Final Dictated: 02/07/2021 9:08 am Dictating Physician: HAILY LOPEZ Signed Date and Time: 02/07/2021 9:46 am Signed by: HAILY LOPEZ Ultrasound ACCESSION EXAM DATE/TIME PROCEDURE ORDERING PROVIDER [id number] 02/07/2021 09:14 EDT MFM US Biophy w/o SPIKE ANDERSON non-stress Reason For Exam (MFM US Biophy w/o non-stress) PPROM Report OBSTETRICS REPORT (Signed Final 02/07/2021 09:46 am) Patient Info ID #: [id number] : [birth year] (20 yrs) Name: RAYMOND BROWNLEE Visit Date: 02/07/2021 09:08 am Performed By Attending: Haily Lopez Referred By: SPIKE ANDERSON MD, PhD, FACOG Performed By: Norma Wallace Visit Type: Outpatient Ultrasound Report Service(s) Provided BPP w/out NST 20726 Indications PPROM Vital Signs Weight (lb): 180 Height: 5'8 BMI: 27.37 Evaluation Num Of Fetuses: 1 Heart Rate(bpm): 157 Cardiac Activity: Regular rhythm Lie: Longitudinal Presentation: Cephalic Placenta: Anterior Amniotic Fluid JUAN FV: Oligohydramnios JUAN Sum(cm) %Tile Largest Pocket(cm) 2.2 < 3 2.2 RUQ(cm) RLQ(cm) LUQ(cm) LLQ(cm) 2.2 0 0 0 Comment: 2x2 pocket present Biophysical Evaluation -- Amniotic F.V: within normal limits F. Tone: Observed F. Movement: Observed Score: 8/8 F. Breathing: Observed Gestational Age Clinical LOC: 27w 5d LOC: 05/04/21 Best: 27w 5d Det. By: Clinical LOC LOC: 05/04/21 Impression 1. Quiñones intrauterine at 27w 5d with known growth restriction. 2. The amniotic fluid index was 2.2cm, which is oligohydramnios. 3. Normal Anterior placenta, no evidence of placenta previa. 4.BPP 03/20. Recommendations: 1. Daily kick counts. 2. Twice weekly testing (BPP). 3. Serial growth every 2 weeks. 4. Follow previously outlined plan Ultrasound is not diagnostic for aneuploidy and will not detect all structural abnormalities. Normal ultrasound findings do not guarantee normal outcomes. Haily Lopez MD, PhD, FACOG Ultrasound Report Electronically Signed Final Report 02/07/2021 09:46 am Final Dictated: 02/07/2021 9:08 am Dictating Physician: HAILY LOPEZ Signed Date and Time: 02/07/2021 9:46 am Signed by: HAILY LOPEZ [facility] US BIOPHYSICAL PROFILE WO NON STRESS TESTINGOrdered By: Spike Anderson on 02-07-2021 Patient Name: RAYMOND BROWNLEE Maternal Medicine ACCESSION EXAM DATE/TIME PROCEDURE ORDERING PROVIDER [id number] 02/07/2021 09:14 EDT MFM US Biophy w/o SPIKE ANDERSON non-stress Reason For Exam (MFM US Biophy w/o non-stress) PPROM Report OBSTETRICS REPORT (Signed Final 02/07/2021 09:46 am) Patient Info ID #: [id number] : [birth year] (20 yrs) Name: RAYMOND BROWNLEE Visit Date: 02/07/2021 09:08 am Performed By Attending: Haily Lopez Referred By: SPIKE ANDERSON MD, PhD, FACOG Performed By: Norma Wallace Visit Type: Outpatient Service(s) Provided BPP w/out [facility] [address] Indications PPROM Vital Signs Weight (lb): 180 Height: 5'8 BMI: 27.37 Evaluation Num Of Fetuses: 1 Heart Rate(bpm): 157 Cardiac Activity: Regular rhythm Lie: Longitudinal Presentation: Cephalic Placenta: Anterior Amniotic Fluid JUAN FV: Oligohydramnios JUAN Sum(cm) %Tile Largest Pocket(cm) 2.2 < 3 2.2 RUQ(cm) RLQ(cm) LUQ(cm) LLQ(cm) 2.2 0 0 0 Comment: 2x2 pocket present Biophysical Evaluation Maternal Medicine Report -- Amniotic F.V: within normal limits F. Tone: Observed F. Movement: Observed Score: 88 F. Breathing: Observed Gestational Age Clinical LOC: 27w 5d LOC: 05/04/21 Best: 27w 5d Det. By: Clinical LOC LOC: 05/04/21 Impression 1. Quiñones intrauterine at 27w 5d with known growth restriction. 2. The amniotic fluid index was 2.2cm, which is oligohydramnios. 3. Normal Anterior placenta, no evidence of placenta previa. 4.BPP 03/20. Recommendations: 1. Daily kick counts. 2. Twice weekly testing (BPP). 3. Serial growth every 2 weeks. 4. Follow previously outlined plan Ultrasound is not diagnostic for aneuploidy and will not detect all structural abnormalities. Normal ultrasound findings do not guarantee normal outcomes. Haily Lopez MD, PhD, FACOG Electronically Signed Final Report 02/07/2021 09:46 am --- Final --- Dictated: 02/07/2021 9:08 am Dictating Physician: HAILY LOPEZ Signed Date and Time: 02/07/2021 9:46 am Signed by: HAILY LOPEZ Ultrasound ACCESSION EXAM DATE/TIME PROCEDURE ORDERING PROVIDER [id number] 02/07/2021 09:14 EDT [facility] US Biophy w/o SPIKE ANDERSON non-stress Reason For Exam (MFM US Biophy w/o non-stress) PPROM Report OBSTETRICS REPORT (Signed Final 02/07/2021 09:46 am) Patient Info ID #: [id number] : [birth year] (20 yrs) Name: RAYMOND BROWNLEE Visit Date: 02/07/2021 09:08 am Performed By Attending: Haily Lopez Referred By: SPIKE ANDERSON MD, PhD, FACOG Performed By: Norma Wallace Visit Type: Outpatient Ultrasound Report Service(s) Provided BPP w/out NST 85413 Indications PPROM Vital Signs Weight (lb): 180 Height: 5'8 BMI: 27.37 Evaluation Num Of Fetuses: 1 Heart Rate(bpm): 157 Cardiac Activity: Regular rhythm Lie: Longitudinal Presentation: Cephalic Placenta: Anterior Amniotic Fluid JUAN FV: Oligohydramnios JUAN Sum(cm) %Tile Largest Pocket(cm) 2.2 < 3 2.2 RUQ(cm) RLQ(cm) LUQ(cm) LLQ(cm) 2.2 0 0 0 Comment: 2x2 pocket present Biophysical Evaluation -- Amniotic F.V: within normal limits F. Tone: Observed F. Movement: Observed Score: 8/8 F. Breathing: Observed Gestational Age Clinical LOC: 27w 5d LOC: 05/04/21 Best: 27w 5d Det. By: Clinical LOC LOC: 05/04/21 Impression 1. Quiñones intrauterine at 27w 5d with known growth restriction. 2. The amniotic fluid index was 2.2cm, which is oligohydramnios. 3. Normal Anterior placenta, no evidence of placenta previa. 4.BPP 03/20. Recommendations: 1. Daily ki (more content not included)... [facility] Work Phone: [facility], [facility] Incoming Radiology Results From [facility] - 02/07/2021 9:46 AM EDT Patient Name: RAYMOND BROWNLEE Maternal Medicine ACCESSION EXAM DATE/TIME PROCEDURE ORDERING PROVIDER [id number] 02/07/2021 09:14 EDT MFM US Biophy w/o SPIKE ANDERSON non-stress Reason For Exam (MFM US Biophy w/o non-stress) PPROM Report OBSTETRICS REPORT (Signed Final 02/07/2021 09:46 am) Patient Info ID #: [id number] : [birth year] (20 yrs) Name: RAYMOND BROWNLEE Visit Date: 02/07/2021 09:08 am Performed By Attending: Haily Lopez Referred By: SPIKE ANDERSON MD, PhD, FACOG Performed By: Norma Wallace Visit Type: Outpatient Service(s) Provided BPP w/out NST 74767 Indications PPROM Vital Signs Weight (lb): 180 Height: 5'8 BMI: 27.37 Evaluation Num Of Fetuses: 1 Heart Rate(bpm): 157 Cardiac Activity: Regular rhythm Lie: Longitudinal Presentation: Cephalic Placenta: Anterior Amniotic Fluid JUAN FV: Oligohydramnios JUAN Sum(cm) %Tile Largest Pocket(cm) 2.2 < 3 2.2 RUQ(cm) RLQ(cm) LUQ(cm) LLQ(cm) 2.2 0 0 0 Comment: 2x2 pocket present Biophysical Evaluation Maternal Medicine Report -- Amniotic F.V: within normal limits F. Tone: Observed F. Movement: Observed Score: 03/20 F. Breathing: Observed Gestational Age Clinical LOC: 27w 5d LOC: 05/04/21 Best: 27w 5d Det. By: Clinical LOC LOC: 05/04/21 Impression 1. Quiñones intrauterine at 27w 5d with known growth restriction. 2. The amniotic fluid index was 2.2cm, which is oligohydramnios. 3. Normal Anterior placenta, no evidence of placenta previa. 4.BPP 03/20. Recommendations: 1. Daily kick counts. 2. Twice weekly testing (BPP). 3. Serial growth every 2 weeks. 4. Follow previously outlined plan Ultrasound is not diagnostic for aneuploidy and will not detect all structural abnormalities. Normal ultrasound findings do not guarantee normal outcomes. Haily Lopez MD, PhD, FACOG Electronically Signed Final Report 02/07/2021 09:46 am --- Final --- Dictated: 02/07/2021 9:08 am Dictating Physician: HAILY LOPEZ Signed Date and Time: 02/07/2021 9:46 am Signed by: HAILY LOPEZ Ultrasound ACCESSION EXAM DATE/TIME PROCEDURE ORDERING PROVIDER [id number] 02/07/2021 09:14 EDT [facility] US Biophy w/o SPIKE ANDERSON non-stress Reason For Exam (M US Biophy w/o non-stress) PPROM Report OBSTETRICS REPORT (Signed Final 02/07/2021 09:46 am) Patient Info ID #: [id number] : [birth year] (20 yrs) Name: RAYMOND BROWNLEE Visit Date: 02/07/2021 09:08 am Performed By Attending: Haily Lopez Referred By: SPIKE ANDERSON MD, PhD, FACOG Performed By: Norma Wallace Visit Type: Outpatient Ultrasound Report Service(s) Provided BPP w/out NST 25728 Indications PPROM Vital Signs Weight (lb): 180 Height: 5'8 BMI: 27.37 Evaluation Num Of Fetuses: 1 Heart Rate(bpm): 157 Cardiac Activity: Regular rhythm Lie: Longitudinal Presentation: Cephalic Placenta: Anterior Amniotic Fluid JUAN FV: Oligohydramnios JUAN Sum(cm) %Tile Largest Pocket(cm) 2.2 < 3 2.2 RUQ(cm) RLQ(cm) LUQ(cm) LLQ(cm) 2.2 0 0 0 Comment: 2x2 pocket present Biophysical Evaluation -- Amniotic F.V: within normal limits F. Tone: Observed F. Movement: Observed Score: 8 F. Breathing: Observed Gestational Age Clinical LOC: 27w 5d LOC: 05/04/21 Best: 27w 5d Det. By: Clinical LOC LOC: 05/04/21 Impression 1. Quiñones intrauterine at 27w 5d with known growth restriction. 2. The amniotic fluid index was 2.2cm, which is oligohydramnios. 3. Normal Anterior placenta, no evidence of placenta previa. 4.BPP 03/20. Recommendations: 1. Daily kick counts. 2. Twice weekly testing (BPP). 3. Serial growth every 2 weeks. 4. Follow previously outlined plan Ultrasound is not diagnostic for aneuploidy and will not detect all structural abnormalities. Normal ultrasound findings do not guarantee normal outcomes. Haily Lopez MD, PhD, FACOG Ultrasound Report Electronically Signed Final Report 02/07/2021 09:46 am --- Final --- Dictated: 02/07/2021 9:08 am Dictating Physician: HAILY LOPEZ Signed Date and Time: 02/07/2021 9:46 am Signed by: HAILY LOPEZ [facility] Work Phone: [phone] [facility] Work Phone: [phone] TS GELon 02-06-2021 TS GEL ABO Group: A Rh, Gel: POS Antibody Screen Gel: NEG Normal [facility] Comment on above: Performed By: #### B GLU #### [facility] [address] [place] [phone] TYPE AND SCREENOrdered By: Yashira Wright on 02-06-2021 ABO Grouping A [facility] Work Phone: [phone] Rh Type Positive [facility] Work Phone: Test Performed by [facility], [address] [place] [address] [facility] Work Phone: [phone] [facility] Work Phone: MFM US Biophy w/o non- stresson 02-03-2021 MFM US Biophy w/o non-stress Patient Name: RAYMOND BROWNLEE Maternal Medicine ACCESSION EXAM DATE/TIME PROCEDURE ORDERING PROVIDER [id number] 02/03/2021 10:36 EDT MFM US Biophy w/o SPIKE ANDERSON non-andrés Reason For Exam (MFM US Biophy w/o non-stress) PPROM Report OBSTETRICS REPORT (Signed Final 02/03/2021 02:01 pm) Patient Info ID #: [id number] : [birth year] (20 yrs) Name: RAYMOND BROWNLEE Visit Date: 02/03/2021 10:36 am Performed By Attending: Francesca López Location: [facility], [facility] Performed By: Susan Gonzalez Visit Type: Inpatient - WITS RDMS Referred By: SPIKE ANDERSON Service(s) Provided BPP w/out NST 12921 Indications PPROM Vital Signs Weight (lb): 180 Height: 5'8 BMI: 27.37 Evaluation Num Of Fetuses: 1 Heart Rate(bpm): 138 Cardiac Activity: Present Lie: Longitudinal Presentation: Cephalic Placenta: Anterior grade 2 Amniotic Fluid JUAN FV: Oligohydramnios JUAN Sum(cm) %Tile Largest Pocket(cm) 4.8 < 3 3.3 RUQ(cm) LUQ(cm) 1.5 3.3 Maternal Medicine Report Comment: + 2cm X 2cm pocket of fluid Biophysical Evaluation -- Amniotic F.V: within normal limits F. Tone: Observed F. Movement: Observed Score: 8/8 F. Breathing: Observed Gestational Age Clinical LOC: 27w 1d LOC: 05/04/21 Best: 27w 1d Det. By: Clinical LOC LOC: 05/04/21 Impression - Quiñones live intrauterine at 27w 1d in cephalic presentation. - The amniotic fluid index is 4.8cm (oligohydramnios). - Reassuring BPP. Recommendations See inpatient chart. Ultrasound is not diagnostic of chromosomal aneuploidy and does not detect all subtle defects. Normal ultrasound findings do not guarantee normal outcomes. Francesca López DO, FACOG Electronically Signed Final Report 02/03/2021 02:01 pm Final Dictated: 02/03/2021 10:36 am Dictating Physician: DO LÓPEZ KATHERINE BRIDGET Signed Date and Time: 02/03/2021 2:02 pm Signed by: DO LÓPEZ KATHERINE BRIDGET Ultrasound ACCESSION EXAM DATE/TIME PROCEDURE ORDERING PROVIDER [id number] 02/03/2021 10:36 EDT [facility] US Biophy w/o SPIKE ANDERSON non-stress Reason For Exam ([facility] US Biophy w/o non-stress) PPROM Report OBSTETRICS REPORT (Signed Final 02/03/2021 02:01 pm) Patient Info ID #: [id number] : [birth year] (20 yrs) Name: RAYMOND BROWNLEE Visit Date: 02/03/2021 10:36 am Performed By Attending: Francesca López Location: [facility] Performed By: Susan Gonzalez Visit Type: Inpatient - WITS Ultrasound Report RDMS Referred By: SPIKE ANDERSON Service(s) Provided BPP w/out NST 32747 Indications PPROM Vital Signs Weight (lb): 180 Height: 5'8 BMI: 27.37 Evaluation Num Of Fetuses: 1 Heart Rate(bpm): 138 Cardiac Activity: Present Lie: Longitudinal Presentation: Cephalic Placenta: Anterior grade 2 Amniotic Fluid JUAN FV: Oligohydramnios JUAN Sum(cm) %Tile Largest Pocket(cm) 4.8 < 3 3.3 RUQ(cm) LUQ(cm) 1.5 3.3 Comment: + 2cm X 2cm pocket of fluid Biophysical Evaluation -- Amniotic F.V: within normal limits F. Tone: Observed F. Movement: Observed Score: 8/8 F. Breathing: Observed Gestational Age Clinical LOC: 27w 1d LOC: 05/04/21 Best: 27w 1d Det. By: Clinical LOC LOC: 05/04/21 Impression - Quiñones live intrauterine at 27w 1d in cephalic presentation. - The amniotic fluid index is 4.8cm (oligohydramnios). - Reassuring BPP. Recommendations See inpatient chart. Ultrasound is not diagnostic of chromosomal aneuploidy and does not detect all subtle defects. Normal ultrasound findings do not guarantee normal outcomes. Francesca López DO [facility] Ultrasound Report Electronically Signed Final Report 02/03/2021 02:01 pm Final Dictated: 02/03/2021 10:36 am Dictating Physician: DO LÓPEZ KATHERINE BRIDGET Signed Date and Time: 02/03/2021 2:02 pm Signed by: DO LÓPEZ KATHERINE BRIDGET Normal [facility] TS GELon 02-03-2021 TS GEL ABO Group: A Rh, Gel: POS Antibody Screen Gel: NEG Normal [facility] Comment on above: Performed By: #### B GLU #### [facility] [address] [place] [phone] TYPE AND SCREENOrdered By: Yashira Wright on 02-03-2021 ABO Grouping A [facility] Work Phone: Rh Type Positive [facility] Work Phone: Test Performed by [facility], [address] [place] [phone] [facility] Work Phone: [facility] Work Phone: US BIOPHYSICAL PROFILE WO NON STRESS TESTINGOrdered By: Spike Anderson on 02-03-2021 Patient Name: RAYMOND BROWNLEE Maternal Medicine ACCESSION EXAM DATE/TIME PROCEDURE ORDERING PROVIDER [id number] 02/03/2021 10:36 EDT [facility] US Biophy w/o SPIKE ANDERSON non-stress Reason For Exam ([facility] US Biophy w/o non-stress) PPROM Report OBSTETRICS REPORT (Signed Final 02/03/2021 02:01 pm) Patient Info ID #: [id number] : [birth year] (20 yrs) Name: RAYMOND BROWNLEE Visit Date: 02/03/2021 10:36 am Performed By Attending: Francesca López Location: [facility] Performed By: Susan Gonzalez Visit Type: Inpatient - WITS RDMS Referred By: SPIKE ANDERSON Service(s) Provided BPP w/out NST 19197 Indications PPROM Vital Signs Weight (lb): 180 Height: 5'8 BMI: 27.37 Evaluation Num Of Fetuses: 1 Heart Rate(bpm): 138 Cardiac Activity: Present Lie: Longitudinal Presentation: Cephalic Placenta: Anterior grade 2 Amniotic Fluid JUAN FV: Oligohydramnios JUAN Sum(cm) %Tile Largest Pocket(cm) 4.8 < 3 3.3 RUQ(cm) LUQ(cm) 1.5 3.3 Maternal Medicine Report Comment: + 2cm X 2cm pocket of fluid Biophysical Evaluation -- Amniotic F.V: within normal limits F. Tone: Observed F. Movement: Observed Score: 8/8 F. Breathing: Observed Gestational Age Clinical LOC: 27w 1d LOC: 05/04/21 Best: 27w 1d Det. By: Clinical LOC LOC: 05/04/21 Impression - Quiñones live intrauterine at 27w 1d in cephalic presentation. - The amniotic fluid index is 4.8cm (oligohydramnios). - Reassuring BPP. Recommendations See inpatient chart. Ultrasound is not diagnostic of chromosomal aneuploidy and does not detect all subtle defects. Normal ultrasound findings do not guarantee normal outcomes. Francesca López DO, FACOG Electronically Signed Final Report 02/03/2021 02:01 pm --- Final --- Dictated: 02/03/2021 10:36 am Dictating Physician: DO LÓPEZ KATHERINE BRIDGET Signed Date and Time: 02/03/2021 2:02 pm Signed by: DO LÓPEZ KATHERINE BRIDGET Ultrasound ACCESSION EXAM DATE/TIME PROCEDURE ORDERING PROVIDER [id number] 02/03/2021 10:36 EDT [facility] US Biophy w/o SPIKE ANDERSON non-stress Reason For Exam (M US Biophy w/o non-stress) PPROM Report OBSTETRICS REPORT (Signed Final 02/03/2021 02:01 pm) Patient Info ID #: [id number] : [birth year] (20 yrs) Name: RAYMOND BROWNLEE Visit Date: 02/03/2021 10:36 am Performed By Attending: Francesca López Location: [facility], [facility] Testing [facility] Imaging [facility] Performed By: Susan Gonzalez Visit Type: Inpatient - [facility] Ultrasound Report RDMS Referred By: SPIKE ANDERSON Service(s) Provided BPP w/out NST 59153 Indications PPROM Vital Signs Weight (lb): 180 Height: 5'8 BMI: 27.37 Evaluation Num Of Fetuses: 1 Heart Rate(bpm): 138 Cardiac Activity: Present Lie: Longitudinal Presentation: Cephalic Placenta: Anterior grade 2 Amniotic Fluid JUAN FV: Oligohydramnios JUAN Sum(cm) %Tile Largest Pocket(cm) 4.8 < 3 3.3 RUQ(cm) LUQ(cm) 1.5 3.3 Comment: + 2cm X 2cm pocket of fluid Biophysical Evaluation -- Amniotic F.V: within normal limits F. Tone: Observed F. Movement: Observed Score: 8/8 F. Breathing: Observed Gestational Age Clinical LOC: 27w 1d LOC: 05/04/21 Best: 27w 1d Det. By: Clinical LOC LOC: 05/04/21 Impression - Quiñones live intrauterine at 27w 1d in cephalic presentation. - The amniotic fluid index is 4.8cm (oligohydramnios). - Reassuring BPP. Recommendations See inpatient chart. Ultrasound is not diagnostic of chromosomal aneup (more content not included)... [facility] Work Phone: [facility], [facility] Incoming Radiology Results From [facility] - 02/03/2021 2:02 PM EDT Patient Name: RAYMOND BROWNLEE Maternal Medicine ACCESSION EXAM DATE/TIME PROCEDURE ORDERING PROVIDER [id number] 02/03/2021 10:36 EDT [facility] US Biophy w/o SPIKE ANDERSON non-stress Reason For Exam ([facility] US Biophy w/o non-stress) PPROM Report OBSTETRICS REPORT (Signed Final 02/03/2021 02:01 pm) Patient Info ID #: [id number] : [birth year] (20 yrs) Name: RAYMOND BROWNLEE Visit Date: 02/03/2021 10:36 am Performed By Attending: Francesca López Location: [facility], [facility] Imaging [facility] Performed By: Susan Gonzalez Visit Type: Inpatient - [facility] RDMS Referred By: SPIKE ANDERSON Service(s) Provided BPP w/out NST 77342 Indications PPROM Vital Signs Weight (lb): 180 Height: 5'8 BMI: 27.37 Evaluation Num Of Fetuses: 1 Heart Rate(bpm): 138 Cardiac Activity: Present Lie: Longitudinal Presentation: Cephalic Placenta: Anterior grade 2 Amniotic Fluid JUAN FV: Oligohydramnios JUAN Sum(cm) %Tile Largest Pocket(cm) 4.8 < 3 3.3 RUQ(cm) LUQ(cm) 1.5 3.3 Maternal Medicine Report Comment: + 2cm X 2cm pocket of fluid Biophysical Evaluation -- Amniotic F.V: within normal limits F. Tone: Observed F. Movement: Observed Score: 8/8 F. Breathing: Observed Gestational Age Clinical LOC: 27w 1d LOC: 05/04/21 Best: 27w 1d Det. By: Clinical LOC LOC: 05/04/21 Impression - Quiñones live intrauterine at 27w 1d in cephalic presentation. - The amniotic fluid index is 4.8cm (oligohydramnios). - Reassuring BPP. Recommendations See inpatient chart. Ultrasound is not diagnostic of chromosomal aneuploidy and does not detect all subtle defects. Normal ultrasound findings do not guarantee normal outcomes. Francesca López DO, FACOG Electronically Signed Final Report 02/03/2021 02:01 pm --- Final --- Dictated: 02/03/2021 10:36 am Dictating Physician: DO LÓPEZ KATHERINE BRIDGET Signed Date and Time: 02/03/2021 2:02 pm Signed by: DO LÓPEZ KATHERINE BRIDGET Ultrasound ACCESSION EXAM DATE/TIME PROCEDURE ORDERING PROVIDER [id number] 02/03/2021 10:36 EDT [facility] US Biophy w/o SPIKE ANDERSON non-stress Reason For Exam ([facility] US Biophy w/o non-stress) PPROM Report OBSTETRICS REPORT (Signed Final 02/03/2021 02:01 pm) Patient Info ID #: [id number] : [birth year] (20 yrs) Name: RAYMOND BROWNLEE Visit Date: 02/03/2021 10:36 am Performed By Attending: Francesca López Location: [facility] Performed By: Susan Gonzalez Visit Type: Inpatient - [facility] Ultrasound Report RDMS Referred By: SPIKE ANDERSON Service(s) Provided BPP w/out NST 51877 Indications PPROM Vital Signs Weight (lb): 180 Height: 5'8 BMI: 27.37 Evaluation Num Of Fetuses: 1 Heart Rate(bpm): 138 Cardiac Activity: Present Lie: Longitudinal Presentation: Cephalic Placenta: Anterior grade 2 Amniotic Fluid JUAN FV: Oligohydramnios JUAN Sum(cm) %Tile Largest Pocket(cm) 4.8 < 3 3.3 RUQ(cm) LUQ(cm) 1.5 3.3 Comment: + 2cm X 2cm pocket of fluid Biophysical Evaluation -- Amniotic F.V: within normal limits F. Tone: Observed F. Movement: Observed Score: 8/8 F. Breathing: Observed Gestational Age Clinical LOC: 27w 1d LOC: 05/04/21 Best: 27w 1d Det. By: Clinical LOC LOC: 05/04/21 Impression - Quiñones live intrauterine at 27w 1d in cephalic presentation. - The amniotic fluid index is 4.8cm (oligohydramnios). - Reassuring BPP. Recommendations See inpatient chart. Ultrasound is not diagnostic of chromosomal aneuploidy and does not detect all subtle defects. Normal ultrasound findings do not guarantee normal outcomes. Francesca López DO, FACOG Ultrasound Report Electronically Signed Final Report 02/03/2021 02:01 pm --- Final --- Dictated: 02/03/2021 10:36 am Dictating Physician: DO LÓPEZ KATHERINE BRIDGET Signed Date and Time: 02/03/2021 2:02 pm Signed by: DO LÓPEZ KATHERINE BRIDGET [facility] Work Phone: [facility] Work Phone: [facility] US Biophy w/o non- stresson 01-31-2021 MFM US Biophy w/o non-stress Patient Name: RAYMOND BROWNLEE Maternal Medicine ACCESSION EXAM DATE/TIME PROCEDURE ORDERING PROVIDER [id number] 01/31/2021 08:08 EDT [facility] US Biophy w/o SPIKE ANDERSON non-stress Reason For Exam (M US Biophy w/o non-stress) PPROM Report OBSTETRICS REPORT (Signed Final 01/31/2021 10:24 am) Patient Info ID #: [id number] : [birth year] (20 yrs) Name: RAYMOND BROWNLEE Visit Date: 01/31/2021 08:09 am Performed By Attending: Francesca López Location: [facility], [facility] Performed By: Susan Gonzalez Visit Type: Inpatient - [facility] Referred By: SPIKE ANDERSON Service(s) Provided BPP w/out NST 66686 Indications PPROM Vital Signs Weight (lb): 180 Height: 5'8 BMI: 27.37 Evaluation Num Of Fetuses: 1 Heart Rate(bpm): 137 Cardiac Activity: Present Lie: Transverse Presentation: spine down, head right Placenta: Anterior Fundal Amniotic Fluid JUAN FV: Oligohydramnios JUAN Sum(cm) %Tile Largest Pocket(cm) 3.7 < 3 2.1 RUQ(cm) LUQ(cm) 2.1 1.6 Maternal Medicine Report Biophysical Evaluation -- Amniotic F.V: pocket < 2 cm two F. Tone: Observed planes F. Movement: Observed Score: 6/8 F. Breathing: Observed Gestational Age Clinical LOC: 26w 5d LOC: 05/04/21 Best: 26w 5d Det. By: Clinical LOC LOC: 05/04/21 Impression - Quiñones live intrauterine at 26w 5d in transverse presentation. - Oligohydramnios with BPP 01/18 due to PPROM. Recommendations See inpatient chart. Ultrasound is not diagnostic of chromosomal aneuploidy and does not detect all subtle defects. Normal ultrasound findings do not guarantee normal outcomes. Francesca López DO, [facility]OG Electronically Signed Final Report 01/31/2021 10:24 am Final Dictated: 01/31/2021 8:09 am Dictating Physician: DO LÓPEZ KATHERINE BRIDGET Signed Date and Time: 01/31/2021 10:25 am Signed by: DO LÓPEZ KATHERINE BRIDGET Ultrasound ACCESSION EXAM DATE/TIME PROCEDURE ORDERING PROVIDER [id number] 01/31/2021 08:08 EDT MFM US Biophy w/o SPIKE ANDERSON non-stress Reason For Exam (MFM US Biophy w/o non-stress) PPROM Report OBSTETRICS REPORT (Signed Final 01/31/2021 10:24 am) Patient Info ID #: [id number] : [birth year] (20 yrs) Name: RAYMOND BROWNLEE Visit Date: 01/31/2021 08:09 am Performed By Attending: Francesca López Location: [facility] Imaging [facility] Performed By: Susan Gonzalez Visit Type: Inpatient - [facility] Ultrasound Report Referred By: SPIKE ANDERSON Service(s) Provided BPP w/out NST 01768 Indications PPROM Vital Signs Weight (lb): 180 Height: 5'8 BMI: 27.37 Evaluation Num Of Fetuses: 1 Heart Rate(bpm): 137 Cardiac Activity: Present Lie: Transverse Presentation: spine down, head right Placenta: Anterior Fundal Amniotic Fluid JUAN FV: Oligohydramnios JUAN Sum(cm) %Tile Largest Pocket(cm) 3.7 < 3 2.1 RUQ(cm) LUQ(cm) 2.1 1.6 Biophysical Evaluation -- Amniotic F.V: pocket < 2 cm two F. Tone: Observed planes F. Movement: Observed Score: 6/8 F. Breathing: Observed Gestational Age Clinical LOC: 26w 5d LOC: 05/04/21 Best: 26w 5d Det. By: Clinical OLC LOC: 05/04/21 Impression - Quiñones live intrauterine at 26w 5d in transverse presentation. - Oligohydramnios with BPP /8 due to PPROM. Recommendations See inpatient chart. Ultrasound is not diagnostic of chromosomal aneuploidy and does not detect all subtle defects. Normal ultrasound findings do not guarantee normal outcomes. Francesca López DO, [facility]ACOG Ultrasound Report Electronically Signed Final Report 01/31/2021 10:24 am Final Dictated: 01/31/2021 8:09 am Dictating Physician: DO LÓPEZ KATHERINE BRIDGET Signed Date and Time: 01/31/2021 10:25 am Signed by: DO LÓPEZ KATHERINE BRIDGET Normal [facility] TS GELon 01-31-2021 TS GEL ABO Group: A Rh, Gel: POS Antibody Screen Gel: NEG Normal [facility] Comment on above: Performed By: #### B GLU #### [address] [phone] TYPE AND SCREENOrdered By: Yashira Wright on 01-31-2021 ABO Grouping A [facility] Work Phone: Rh Type Positive [facility] Work Phone: Test Performed by [facility] [employer] [facility], [address] [place] [address] [facility] Work Phone: [facility] Work Phone: US BIOPHYSICAL PROFILE WO NON STRESS TESTINGOrdered By: Spike Anderson on 01-31-2021 Patient Name: RAYMOND BROWNLEE Maternal Medicine ACCESSION EXAM DATE/TIME PROCEDURE ORDERING PROVIDER [id number] 01/31/2021 08:08 EDT M US Biophy w/o SPIKE ANDERSON non-stress Reason For Exam (MFM US Biophy w/o non-stress) PPROM Report OBSTETRICS REPORT (Signed Final 01/31/2021 10:24 am) Patient Info ID #: [id number] : [birth year] (20 yrs) Name: RAYMOND BROWNLEE Visit Date: 01/31/2021 08:09 am Performed By Attending: Francesca López Location: [facility] Performed By: Susan Gonzalez Visit Type: Inpatient - [facility] Referred By: SPIKE ANDERSON Service(s) Provided BPP w/out NST 28319 Indications PPROM Vital Signs Weight (lb): 180 Height: 5'8 BMI: 27.37 Evaluation Num Of Fetuses: 1 Heart Rate(bpm): 137 Cardiac Activity: Present Lie: Transverse Presentation: spine down, head right Placenta: Anterior Fundal Amniotic Fluid JUAN FV: Oligohydramnios JUAN Sum(cm) %Tile Largest Pocket(cm) 3.7 < 3 2.1 RUQ(cm) LUQ(cm) 2.1 1.6 Maternal Medicine Report Biophysical Evaluation -- Amniotic F.V: pocket < 2 cm two F. Tone: Observed planes F. Movement: Observed Score: 6/8 F. Breathing: Observed Gestational Age Clinical LOC: 26w 5d LOC: 09/22/21 Best: 26w 5d Det. By: Clinical LOC LOC: 05/04/21 Impression - Quiñones live intrauterine at 26w 5d in transverse presentation. - Oligohydramnios with BPP 01/18 due to PPROM. Recommendations See inpatient chart. Ultrasound is not diagnostic of chromosomal aneuploidy and does not detect all subtle defects. Normal ultrasound findings do not guarantee normal outcomes. Francesca López DO, FACOG Electronically Signed Final Report 01/31/2021 10:24 am --- Final --- Dictated: 01/31/2021 8:09 am Dictating Physician: DO LÓPEZ KATHERINE BRIDGET Signed Date and Time: 01/31/2021 10:25 am Signed by: DO LÓPEZ KATHERINE BRIDGET Ultrasound ACCESSION EXAM DATE/TIME PROCEDURE ORDERING PROVIDER [id number] 01/31/2021 08:08 EDT [facility] US Biophy w/o SPIKE ANDERSON non-stress Reason For Exam (MFM US Biophy w/o non-stress) PPROM Report OBSTETRICS REPORT (Signed Final 01/31/2021 10:24 am) Patient Info ID #: [id number] : [birth year] (20 yrs) Name: RAYMOND BROWNLEE Visit Date: 01/31/2021 08:09 am Performed By Attending: Francesca López Location: [facility] Performed By: Susan Gonzalez Visit Type: Inpatient - [facility] Ultrasound Report Referred By: SPIKE ANDERSON Service(s) Provided BPP w/out NST 22889 Indications PPROM Vital Signs Weight (lb): 180 Height: 5'8 BMI: 27.37 Evaluation Num Of Fetuses: 1 Heart Rate(bpm): 137 Cardiac Activity: Present Lie: Transverse Presentation: spine down, head right Placenta: Anterior Fundal Amniotic Fluid JUAN FV: Oligohydramnios JUAN Sum(cm) %Tile Largest Pocket(cm) 3.7 < 3 2.1 RUQ(cm) LUQ(cm) 2.1 1.6 Biophysical Evaluation -- Amniotic F.V: pocket < 2 cm two F. Tone: Observed planes F. Movement: Observed Score: 6/8 F. Breathing: Observed Gestational Age Clinical LOC: 26w 5d LOC: 05/04/21 Best: 26w 5d Det. By: Clinical LOC LOC: 05/04/21 Impression - Quiñones live intrauterine at 26w 5d in transverse presentation. - Oligohydramnios with BPP 6/8 due to PPROM. Recommendations See inpatient chart. Ultrasound is not diagnostic of chromosomal aneuploidy and does not detect all subtle defects. Normal ultrasound findings do not guarantee normal outcomes. Maria C (more content not included)... [facility] Work Phone: [facility], [facility] Incoming Radiology Results From [facility] - 01/31/2021 10:25 AM EDT Patient Name: RAYMOND BROWNLEE Maternal Medicine ACCESSION EXAM DATE/TIME PROCEDURE ORDERING PROVIDER [id number] 01/31/2021 08:08 EDT M US Biophy w/o SPIKE ANDERSON non-stress Reason For Exam (MFM US Biophy w/o non-stress) PPROM Report OBSTETRICS REPORT (Signed Final 01/31/2021 10:24 am) Patient Info ID #: [id number] : [birth year] (20 yrs) Name: RAYMOND BROWNLEE Visit Date: 01/31/2021 08:09 am Performed By Attending: Francesca López Location: [facility] Performed By: Susan Gonzalez Visit Type: Inpatient - [facility] Referred By: SPIKE ANDERSON Service(s) Provided BPP w/out NST 10935 Indications PPROM Vital Signs Weight (lb): 180 Height: 5'8 BMI: 27.37 Evaluation Num Of Fetuses: 1 Heart Rate(bpm): 137 Cardiac Activity: Present Lie: Transverse Presentation: spine down, head right Placenta: Anterior Fundal Amniotic Fluid JUAN FV: Oligohydramnios JUAN Sum(cm) %Tile Largest Pocket(cm) 3.7 < 3 2.1 RUQ(cm) LUQ(cm) 2.1 1.6 Maternal Medicine Report Biophysical Evaluation -- Amniotic F.V: pocket < 2 cm two F. Tone: Observed planes F. Movement: Observed Score: 6/8 F. Breathing: Observed Gestational Age Clinical LOC: 26w 5d LOC: 05/04/21 Best: 26w 5d Det. By: Clinical LOC LOC: 05/04/21 Impression - Quiñones live intrauterine at 26w 5d in transverse presentation. - Oligohydramnios with BPP 6/8 due to PPROM. Recommendations See inpatient chart. Ultrasound is not diagnostic of chromosomal aneuploidy and does not detect all subtle defects. Normal ultrasound findings do not guarantee normal outcomes. Francesca López DO, FACOG Electronically Signed Final Report 01/31/2021 10:24 am --- Final --- Dictated: 01/31/2021 8:09 am Dictating Physician: DO LÓPEZ KATHERINE BRIDGET Signed Date and Time: 01/31/2021 10:25 am Signed by: DO LÓPEZ KATHERINE BRIDGET Ultrasound ACCESSION EXAM DATE/TIME PROCEDURE ORDERING PROVIDER [id number] 01/31/2021 08:08 EDT [facility] US Biophy w/o SPIKE ANDERSON non-stress Reason For Exam ([facility] US Biophy w/o non-stress) PPROM Report OBSTETRICS REPORT (Signed Final 01/31/2021 10:24 am) Patient Info ID #: [id number] : [birth year] (20 yrs) Name: RAYMOND BROWNLEE Visit Date: 01/31/2021 08:09 am Performed By Attending: Francesca López Location: [facility], [facility] Testing [facility] Imaging Center Performed By: Susan Gonzalez Visit Type: Inpatient - [facility] Ultrasound Report Referred By: SPIKE ANDERSON Service(s) Provided BPP w/out NST 20408 Indications PPROM Vital Signs Weight (lb): 180 Height: 5'8 BMI: 27.37 Evaluation Num Of Fetuses: 1 Heart Rate(bpm): 137 Cardiac Activity: Present Lie: Transverse Presentation: spine down, head right Placenta: Anterior Fundal Amniotic Fluid JUAN FV: Oligohydramnios JUAN Sum(cm) %Tile Largest Pocket(cm) 3.7 < 3 2.1 RUQ(cm) LUQ(cm) 2.1 1.6 Biophysical Evaluation -- Amniotic F.V: pocket < 2 cm two F. Tone: Observed planes F. Movement: Observed Score: 6/8 F. Breathing: Observed Gestational Age Clinical LOC: 26w 5d LOC: 05/04/21 Best: 26w 5d Det. By: Clinical LOC LOC: 05/04/21 Impression - Quiñones live intrauterine at 26w 5d in transverse presentation. - Oligohydramnios with BPP 6/8 due to PPROM. Recommendations See inpatient chart. Ultrasound is not diagnostic of chromosomal aneuploidy and does not detect all subtle defects. Normal ultrasound findings do not guarantee normal outcomes. Francesca López DO, FACOG Ultrasound Report Electronically Signed Final Report 01/31/2021 10:24 am --- Final --- Dictated: 01/31/2021 8:09 am Dictating Physician: DO LÓPEZ KATHERINE BRIDGET Signed Date and Time: 01/31/2021 10:25 am Signed by: DO LÓPEZ KATHERINE BRIDGET [facility] Work Phone: [facility] Work Phone: TS GELon 01-28-2021 TS GEL ABO Group: A Rh, Gel: POS Antibody Screen Gel: NEG Normal [facility] Comment on above: Performed By: #### B GLU #### [facility] [address] [place] [phone] TYPE AND SCREENOrdered By: Yashira Wright on 01-28-2021 ABO Grouping A [facility] Work Phone: Rh Type Positive [facility] Work Phone: Test Performed by [facility], [address] [place] [address] [facility] Work Phone: [facility] Work Phone: [facility] US Biophy w/o non- stresson 01-27-2021 MFM US Biophy w/o non-stress Patient Name: RAYMOND BROWNLEE Maternal Medicine ACCESSION EXAM DATE/TIME PROCEDURE ORDERING PROVIDER [id number] 01/27/2021 10:02 EDT MFM US Biophy w/o SPIKE ANDERSON non-stress Reason For Exam (MFM US Biophy w/o non-stress) PPROM Report OBSTETRICS REPORT (Signed Final 01/27/2021 02:35 pm) Patient Info ID #: [id number] : [birth year] (20 yrs) Name: RAYMOND BROWNLEE Visit Date: 01/27/2021 10:03 am Performed By Attending: Rohit Stein MD Location: [facility] Performed By: Susan Gonzalez Visit Type: Outpatient RDMS Referred By: SPIKE ANDERSON Service(s) Provided BPP w/out NST 45928 Indications PPROM Vital Signs Weight (lb): 180 Height: 5'8 BMI: 27.37 Evaluation Num Of Fetuses: 1 Heart Rate(bpm): 126 Cardiac Activity: Present Lie: Longitudinal Presentation: Cephalic Placenta: Anterior Amniotic Fluid JUAN FV: Within normal limits JUAN Sum(cm) %Tile Largest Pocket(cm) 6.9 < 3 2.5 RUQ(cm) RLQ(cm) LUQ(cm) LLQ(cm) 1 2 1.4 2.5 Maternal Medicine Report Comment: + 2 x 2 cm pocket Biophysical Evaluation -- Amniotic F.V: within normal limits F. Tone: Observed F. Movement: Observed Score: 8/8 F. Breathing: Observed Gestational Age Clinical LOC: 26w 1d LOC: 05/04/21 Best: 26w 1d Det. By: Clinical LOC LOC: 05/04/21 Impression - Quiñones live intrauterine at 26w 1d. - The amniotic fluid index is 6.9cm, which is within normal limits. - Reassuring BPP. Continued IP management Ultrasound is not diagnostic of chromosomal aneuploidy and does not detect all subtle defects. Normal ultrasound findings do not guarantee normal outcomes. Rohit Stein MD Electronically Signed Final Report 01/27/2021 02:35 pm Final Dictated: 01/27/2021 10:03 am Dictating Physician: [id number] -ROHIT STEIN Signed Date and Time: 01/27/2021 2:36 pm Signed by: [id number] ROHIT WU Ultrasound ACCESSION EXAM DATE/TIME PROCEDURE ORDERING PROVIDER [id number] 01/27/2021 10:02 EDT [facility] US Biophy w/o SPIKE ANDERSON non-stress Reason For Exam (MFM US Biophy w/o non-stress) PPROM Report OBSTETRICS REPORT (Signed Final 01/27/2021 02:35 pm) Patient Info ID #: [id number] : [birth year] (20 yrs) Name: RAYMOND BROWNLEE Visit Date: 01/27/2021 10:03 am Performed By Attending: Rohit Stein MD Location: [facility] Performed By: Susan Gonzalez Visit Type: Outpatient RDMS Referred By: SPIKE ANDERSON Ultrasound Report Service(s) Provided BPP w/out NST 09240 Indications PPROM Vital Signs Weight (lb): 180 Height: 5'8 BMI: 27.37 Evaluation Num Of Fetuses: 1 Heart Rate(bpm): 126 Cardiac Activity: Present Lie: Longitudinal Presentation: Cephalic Placenta: Anterior Amniotic Fluid JUAN FV: Within normal limits JUAN Sum(cm) %Tile Largest Pocket(cm) 6.9 < 3 2.5 RUQ(cm) RLQ(cm) LUQ(cm) LLQ(cm) 1 2 1.4 2.5 Comment: + 2 x 2 cm pocket Biophysical Evaluation -- Amniotic F.V: within normal limits F. Tone: Observed F. Movement: Observed Score: 8/8 F. Breathing: Observed Gestational Age Clinical LOC: 26w 1d LOC: 05/04/21 Best: 26w 1d Det. By: Clinical LOC LOC: 05/04/21 Impression - Quiñones live intrauterine at 26w 1d. - The amniotic fluid index is 6.9cm, which is within normal limits. - Reassuring BPP. Continued IP management Ultrasound is not diagnostic of chromosomal aneuploidy and does not detect all subtle defects. Normal ultrasound findings do not guarantee normal outcomes. Rohit Stein MD Electronically Signed Final Report 01/27/2021 02:35 pm Final Dictated: 01/27/2021 10:03 am Dictating Physician: ROHIT FRENCH Signed Date and Time: 01/27/2021 2:36 pm Signed by: ROHIT FRENCH [facility] US BIOPHYSICAL PROFILE WO NON STRESS TESTINGOrdered By: Spike Anderson on 01-27-2021 Patient Name: RAYMOND BROWNLEE Maternal Medicine ACCESSION EXAM DATE/TIME PROCEDURE ORDERING PROVIDER [id number] 01/27/2021 10:02 EDT MFM US Biophy w/o SPIKE ANDERSON non-stress Reason For Exam (MFM US Biophy w/o non-stress) PPROM Report OBSTETRICS REPORT (Signed Final 01/27/2021 02:35 pm) Patient Info ID #: [id number] : [birth year] (20 yrs) Name: RAYMOND BROWNLEE Visit Date: 01/27/2021 10:03 am Performed By Attending: Rohit Stein MD Location: [facility] Performed By: Susan Gonzalez Visit Type: Outpatient RDMS Referred By: SPIKE ANDERSON Service(s) Provided BPP w/out NST 38124 Indications PPROM Vital Signs Weight (lb): 180 Height: 5'8 BMI: 27.37 Evaluation Num Of Fetuses: 1 Heart Rate(bpm): 126 Cardiac Activity: Present Lie: Longitudinal Presentation: Cephalic Placenta: Anterior Amniotic Fluid JUAN FV: Within normal limits JUAN Sum(cm) %Tile Largest Pocket(cm) 6.9 < 3 2.5 RUQ(cm) RLQ(cm) LUQ(cm) LLQ(cm) 1 2 1.4 2.5 Maternal Medicine Report Comment: + 2 x 2 cm pocket Biophysical Evaluation -- Amniotic F.V: within normal limits F. Tone: Observed F. Movement: Observed Score: 8/8 F. Breathing: Observed Gestational Age Clinical LOC: 26w 1d LOC: 05/04/21 Best: 26w 1d Det. By: Clinical LOC LOC: 05/04/21 Impression - Quiñones live intrauterine at 26w 1d. - The amniotic fluid index is 6.9cm, which is within normal limits. - Reassuring BPP. Continued IP management Ultrasound is not diagnostic of chromosomal aneuploidy and does not detect all subtle defects. Normal ultrasound findings do not guarantee normal outcomes. Rohit Stein MD Electronically Signed Final Report 01/27/2021 02:35 pm --- Final --- Dictated: 01/27/2021 10:03 am Dictating Physician: ROHIT FRENCH Signed Date and Time: 01/27/2021 2:36 pm Signed by: ROHIT FRENCH Ultrasound ACCESSION EXAM DATE/TIME PROCEDURE ORDERING PROVIDER [id number] 01/27/2021 10:02 EDT [facility] US Biophy w/o SPIKE ANDERSON non-stress Reason For Exam (MFM US Biophy w/o non-stress) PPROM Report OBSTETRICS REPORT (Signed Final 01/27/2021 02:35 pm) Patient Info ID #: [id number] : [birth year] (20 yrs) Name: RAYMOND BROWNLEE Visit Date: 01/27/2021 10:03 am Performed By Attending: Rohit Stein MD Location: [facility] Performed By: Susan Gonzalez Visit Type: Outpatient RDMS Referred By: SPIKE ANDERSON Ultrasound Report Service(s) Provided BPP w/out NST 04888 Indications PPROM Vital Signs Weight (lb): 180 Height: 5'8 BMI: 27.37 Evaluation Num Of Fetuses: 1 Heart Rate(bpm): 126 Cardiac Activity: Present Lie: Longitudinal Presentation: Cephalic Placenta: Anterior Amniotic Fluid JUAN FV: Within normal limits JUAN Sum(cm) %Tile Largest Pocket(cm) 6.9 < 3 2.5 RUQ(cm) RLQ(cm) LUQ(cm) LLQ(cm) 1 2 1.4 2.5 Comment: + 2 x 2 cm pocket Biophysical Evaluation -- Amniotic F.V: within normal limits F. Tone: Observed F. Movement: Observed Score: 8/8 F. Breathing: Observed Gestational Age Clinical LOC: 26w 1d LOC: 05/04/21 Best: 26w 1d Det. By: Clinical LOC LOC: 05/04/21 Impression - Quiñones live intrauterine at 26w 1d. - The amniotic fluid index is 6.9cm, which is within normal limits. - Reassuring BPP. Continued IP management Ultrasound is not diagnostic of chromosomal aneuploidy and does not detect all subtle defects. Normal ultrasound findings do not guarantee normal outcomes. Rohit Stein MD Electronically Signed Final Report 01/27 (more content not included)... [facility] Work Phone: [facility], [facility] Incoming Radiology Results From [facility] - 01/27/2021 2:36 PM EDT Patient Name: RAYMOND BROWNLEE Maternal Medicine ACCESSION EXAM DATE/TIME PROCEDURE ORDERING PROVIDER [id number] 01/27/2021 10:02 EDT [facility] US Biophy w/o SPIKE ANDERSON non-stress Reason For Exam (M US Biophy w/o non-stress) PPROM Report OBSTETRICS REPORT (Signed Final 01/27/2021 02:35 pm) Patient Info ID #: [id number] : [birth year] (20 yrs) Name: RAYMOND BROWNLEE Visit Date: 01/27/2021 10:03 am Performed By Attending: Rohit Stein MD Location: [facility] Performed By: Susan Gonzalez Visit Type: Outpatient RDMS Referred By: SPIKE ANDERSON Service(s) Provided BPP w/out NST 00266 Indications PPROM Vital Signs Weight (lb): 180 Height: 5'8 BMI: 27.37 Evaluation Num Of Fetuses: 1 Heart Rate(bpm): 126 Cardiac Activity: Present Lie: Longitudinal Presentation: Cephalic Placenta: Anterior Amniotic Fluid JUAN FV: Within normal limits JUAN Sum(cm) %Tile Largest Pocket(cm) 6.9 < 3 2.5 RUQ(cm) RLQ(cm) LUQ(cm) LLQ(cm) 1 2 1.4 2.5 Maternal Medicine Report Comment: + 2 x 2 cm pocket Biophysical Evaluation -- Amniotic F.V: within normal limits F. Tone: Observed F. Movement: Observed Score: 8/8 F. Breathing: Observed Gestational Age Clinical LOC: 26w 1d LOC: 05/04/21 Best: 26w 1d Det. By: Clinical LOC LOC: 05/04/21 Impression - Quiñones live intrauterine at 26w 1d. - The amniotic fluid index is 6.9cm, which is within normal limits. - Reassuring BPP. Continued IP management Ultrasound is not diagnostic of chromosomal aneuploidy and does not detect all subtle defects. Normal ultrasound findings do not guarantee normal outcomes. Rohit Stein MD Electronically Signed Final Report 01/27/2021 02:35 pm --- Final --- Dictated: 01/27/2021 10:03 am Dictating Physician: ROHIT FRENCH Signed Date and Time: 01/27/2021 2:36 pm Signed by: ROHIT FRENCH Ultrasound ACCESSION EXAM DATE/TIME PROCEDURE ORDERING PROVIDER [id number] 01/27/2021 10:02 EDT M US Biophy w/o SPIKE ANDERSON non-stress Reason For Exam ([facility]FM US Biophy w/o non-stress) PPROM Report OBSTETRICS REPORT (Signed Final 01/27/2021 02:35 pm) Patient Info ID #: [id number] : [birth year] (20 yrs) Name: RAYMOND BROWNLEE Visit Date: 01/27/2021 10:03 am Performed By Attending: Rohit Stein MD Location: [facility] Performed By: Susan Gonzalez Visit Type: Outpatient RDMS Referred By: SPIKE ANDERSON Ultrasound Report Service(s) Provided BPP w/out NST 31785 Indications PPROM Vital Signs Weight (lb): 180 Height: 5'8 BMI: 27.37 Evaluation Num Of Fetuses: 1 Heart Rate(bpm): 126 Cardiac Activity: Present Lie: Longitudinal Presentation: Cephalic Placenta: Anterior Amniotic Fluid JUAN FV: Within normal limits JUAN Sum(cm) %Tile Largest Pocket(cm) 6.9 < 3 2.5 RUQ(cm) RLQ(cm) LUQ(cm) LLQ(cm) 1 2 1.4 2.5 Comment: + 2 x 2 cm pocket Biophysical Evaluation -- Amniotic F.V: within normal limits F. Tone: Observed F. Movement: Observed Score: 8/8 F. Breathing: Observed Gestational Age Clinical LOC: 26w 1d LOC: 05/04/21 Best: 26w 1d Det. By: Clinical LOC LOC: 05/04/21 Impression - Quiñones live intrauterine at 26w 1d. - The amniotic fluid index is 6.9cm, which is within normal limits. - Reassuring BPP. Continued IP management Ultrasound is not diagnostic of chromosomal aneuploidy and does not detect all subtle defects. Normal ultrasound findings do not guarantee normal outcomes. Rohit Stein MD Electronically Signed Final Report 01/27/2021 02:35 pm --- Final --- Dictated: 01/27/2021 10:03 am Dictating Physician: ROHIT FRENCH Signed Date and Time: 01/27/2021 2:36 pm Signed by: ROHIT FRENCH [facility] Work Phone: [phone] [facility] Work Phone: [phone] TS GELon 01-25-2021 TS GEL ABO Group: A Rh, Gel: POS Antibody Screen Gel: NEG Normal [facility] [employer] Comment on above: Performed By: #### B GLU #### [facility] [address] [place] [phone] TYPE AND SCREENOrdered By: Artemio Eduardo on 01-25-2021 ABO Grouping A [facility] Work Phone: [phone] Rh Type Positive [facility] Work Phone: [phone] Test Performed by [facility], [address] [place] [id number] [facility] Work Phone: [phone] [facility] Work Phone: [phone] MFM US Biophy w/o non- stresson 01-24-2021 MFM US Biophy w/o non-stress Patient Name: RAYMOND BROWNLEE Maternal Medicine ACCESSION EXAM DATE/TIME PROCEDURE ORDERING PROVIDER [id number] 01/24/2021 11:29 EDT M US Biophy w/o SPIKE ANDERSON non-stress Reason For Exam (MFM US Biophy w/o non-stress) PPROM Report OBSTETRICS REPORT (Signed Final 01/24/2021 12:14 pm) Patient Info ID #: [id number] : [birth year] (20 yrs) Name: RAYMOND BROWNLEE Visit Date: 01/24/2021 11:30 am Performed By Attending: Francesca López Referred By: SPIKE ANDERSON DO, FACOG Performed By: Norma Wallace Visit Type: Inpatient - [facility] Service(s) Provided BPP w/out NST 06973 Indications PPROM Vital Signs Weight (lb): 180 Height: 5'8 BMI: 27.37 Evaluation Num Of Fetuses: 1 Heart Rate(bpm): 143 Cardiac Activity: Regular rhythm Lie: Longitudinal Presentation: Cephalic Placenta: Anterior Amniotic Fluid JUAN FV: Oligohydramnios JUAN Sum(cm) %Tile Largest Pocket(cm) 3.2 < 3 2.5 RUQ(cm) RLQ(cm) LUQ(cm) LLQ(cm) 2.5 0 0.7 0 Comment: 2x2 pocket Maternal Medicine Report Biophysical Evaluation -- Amniotic F.V: within normal limits F. Tone: Observed F. Movement: Observed Score: 8/8 F. Breathing: Observed Gestational Age Clinical LOC: 25w 5d LOC: 05/04/21 Best: 25w 5d Det. By: Clinical LOC LOC: 05/04/21 Impression - Quiñones live intrauterine at 25w 5d. - Oligohydramnios. - Reassuring BPP. Recommendations See inpatient chart. Ultrasound is not diagnostic of chromosomal aneuploidy and does not detect all subtle defects. Normal ultrasound findings do not guarantee normal outcomes. Francesca López DO, FACOG Electronically Signed Final Report 01/24/2021 12:14 pm Final Dictated: 01/24/2021 11:30 am Dictating Physician: DO LÓPEZ KATHERINE BRIDGET Signed Date and Time: 01/24/2021 12:15 pm Signed by: DO LÓPEZ KATHERINE BRIDGET Ultrasound ACCESSION EXAM DATE/TIME PROCEDURE ORDERING PROVIDER [id number] 01/24/2021 11:29 EDT MFM US Biophy w/o SPIKE ANDERSON non-stress Reason For Exam (MFM US Biophy w/o non-stress) PPROM Report OBSTETRICS REPORT (Signed Final 01/24/2021 12:14 pm) Patient Info ID #: [id number] : [birth year] (20 yrs) Name: RAYMOND BROWNLEE Visit Date: 01/24/2021 11:30 am Performed By Attending: Francesca López Referred By: SPIKE ANDERSON DO, FACOG Performed By: Norma Wallace Visit Type: Inpatient - [facility] Service(s) Provided Ultrasound Report BPP w/out NST 47424 Indications PPROM Vital Signs Weight (lb): 180 Height: 5'8 BMI: 27.37 Evaluation Num Of Fetuses: 1 Heart Rate(bpm): 143 Cardiac Activity: Regular rhythm Lie: Longitudinal Presentation: Cephalic Placenta: Anterior Amniotic Fluid JUAN FV: Oligohydramnios JUAN Sum(cm) %Tile Largest Pocket(cm) 3.2 < 3 2.5 RUQ(cm) RLQ(cm) LUQ(cm) LLQ(cm) 2.5 0 0.7 0 Comment: 2x2 pocket Biophysical Evaluation -- Amniotic F.V: within normal limits F. Tone: Observed F. Movement: Observed Score: 8/8 F. Breathing: Observed Gestational Age Clinical LOC: 25w 5d LOC: 05/04/21 Best: 25w 5d Det. By: Clinical LOC LOC: 05/04/21 Impression - Quiñones live intrauterine at 25w 5d. - Oligohydramnios. - Reassuring BPP. Recommendations See inpatient chart. Ultrasound is not diagnostic of chromosomal aneuploidy and does not detect all subtle defects. Normal ultrasound findings do not guarantee normal outcomes. Francesca López DO, FACOG Ultrasound Report Electronically Signed Final Report 01/24/2021 12:14 pm Final Dictated: 01/24/2021 11:30 am Dictating Physician: DO LÓPEZ KATHERINE BRIDGET Signed Date and Time: 01/24/2021 12:15 pm Signed by: DO LÓPEZ KATHERINE BRIDGET [facility] US BIOPHYSICAL PROFILE WO NON STRESS TESTINGOrdered By: Spike Anderson on 01-24-2021 Patient Name: RAYMOND BROWNLEE Maternal Medicine ACCESSION EXAM DATE/TIME PROCEDURE ORDERING PROVIDER [id number] 01/24/2021 11:29 EDT MFM US Biophy w/o SPIKE ANDERSON non-stress Reason For Exam (MFM US Biophy w/o non-stress) PPROM Report OBSTETRICS REPORT (Signed Final 01/24/2021 12:14 pm) Patient Info ID #: [id number] : [birth year] (20 yrs) Name: RAYMOND BROWNLEE Visit Date: 01/24/2021 11:30 am Performed By Attending: Francesca López Referred By: SPIKE ANDERSON DO, FACOG Performed By: Norma Wallace Visit Type: Inpatient - [facility] Service(s) Provided BPP w/out NST 75416 Indications PPROM Vital Signs Weight (lb): 180 Height: 5'8 BMI: 27.37 Evaluation Num Of Fetuses: 1 Heart Rate(bpm): 143 Cardiac Activity: Regular rhythm Lie: Longitudinal Presentation: Cephalic Placenta: Anterior Amniotic Fluid JUAN FV: Oligohydramnios JUAN Sum(cm) %Tile Largest Pocket(cm) 3.2 < 3 2.5 RUQ(cm) RLQ(cm) LUQ(cm) LLQ(cm) 2.5 0 0.7 0 Comment: 2x2 pocket Maternal Medicine Report Biophysical Evaluation -- Amniotic F.V: within normal limits F. Tone: Observed F. Movement: Observed Score: 8/8 F. Breathing: Observed Gestational Age Clinical LOC: 25w 5d LOC: 05/04/21 Best: 25w 5d Det. By: Clinical LOC LOC: 05/04/21 Impression - Quiñones live intrauterine at 25w 5d. - Oligohydramnios. - Reassuring BPP. Recommendations See inpatient chart. Ultrasound is not diagnostic of chromosomal aneuploidy and does not detect all subtle defects. Normal ultrasound findings do not guarantee normal outcomes. Francesca López DO, FACOG Electronically Signed Final Report 01/24/2021 12:14 pm --- Final --- Dictated: 01/24/2021 11:30 am Dictating Physician: DO LÓPEZ KATHERINE BRIDGET Signed Date and Time: 01/24/2021 12:15 pm Signed by: DO LÓPEZ KATHERINE BRIDGET Ultrasound ACCESSION EXAM DATE/TIME PROCEDURE ORDERING PROVIDER [id number] 01/24/2021 11:29 EDT [facility] US Biophy w/o SPIKE ANDERSON non-stress Reason For Exam (MFM US Biophy w/o non-stress) PPROM Report OBSTETRICS REPORT (Signed Final 01/24/2021 12:14 pm) Patient Info ID #: [id number] : [birth year] (20 yrs) Name: RAYMOND BROWNLEE Visit Date: 01/24/2021 11:30 am Performed By Attending: Francesca López Referred By: SPIKE ANDERSON DO, FACOG Performed By: Norma Wallace Visit Type: Inpatient - [facility] Service(s) Provided Ultrasound Report BPP w/out NST 72242 Indications PPROM Vital Signs Weight (lb): 180 Height: 5'8 BMI: 27.37 Evaluation Num Of Fetuses: 1 Heart Rate(bpm): 143 Cardiac Activity: Regular rhythm Lie: Longitudinal Presentation: Cephalic Placenta: Anterior Amniotic Fluid JUAN FV: Oligohydramnios JUAN Sum(cm) %Tile Largest Pocket(cm) 3.2 < 3 2.5 RUQ(cm) RLQ(cm) LUQ(cm) LLQ(cm) 2.5 0 0.7 0 Comment: 2x2 pocket Biophysical Evaluation -- Amniotic F.V: within normal limits F. Tone: Observed F. Movement: Observed Score: 8/8 F. Breathing: Observed Gestational Age Clinical LOC: 25w 5d LOC: 05/04/21 Best: 25w 5d Det. By: Clinical LOC LOC: 05/04/21 Impression - Quiñones live intrauterine at 25w 5d. - Oligohydramnios. - Reassuring BPP. Recommendations See inpatient chart. Ultrasound is not diagnostic of chromosomal aneuploidy and does not detect all subtle defects. Normal ultrasound findings do not guarantee normal outcomes. Francesca López DO, FACOG Ultrasound Report Electronically Signed Final Report 01/24/2021 12:14 pm --- Final --- Dictated: (more content not included)... [facility] Work Phone: Fredy, [facility] Incoming Radiology Results From [facility] - 01/24/2021 12:15 PM EDT Patient Name: RAYMOND BROWNLEE Maternal Medicine ACCESSION EXAM DATE/TIME PROCEDURE ORDERING PROVIDER [id number] 01/24/2021 11:29 EDT MFM US Biophy w/o SPIKE ANDERSON non-stress Reason For Exam (MFM US Biophy w/o non-stress) PPROM Report OBSTETRICS REPORT (Signed Final 01/24/2021 12:14 pm) Patient Info ID #: [id number] : [birth year] (20 yrs) Name: RAYMOND BROWNLEE Visit Date: 01/24/2021 11:30 am Performed By Attending: Francesca López Referred By: SPIKE ANDERSON DO, FACOG Performed By: Norma Wallace Visit Type: Inpatient - [facility] Service(s) Provided BPP w/out NST 75391 Indications PPROM Vital Signs Weight (lb): 180 Height: 5'8 BMI: 27.37 Evaluation Num Of Fetuses: 1 Heart Rate(bpm): 143 Cardiac Activity: Regular rhythm Lie: Longitudinal Presentation: Cephalic Placenta: Anterior Amniotic Fluid JUAN FV: Oligohydramnios JUAN Sum(cm) %Tile Largest Pocket(cm) 3.2 < 3 2.5 RUQ(cm) RLQ(cm) LUQ(cm) LLQ(cm) 2.5 0 0.7 0 Comment: 2x2 pocket Maternal Medicine Report Biophysical Evaluation -- Amniotic F.V: within normal limits F. Tone: Observed F. Movement: Observed Score: 8/8 F. Breathing: Observed Gestational Age Clinical LCO: 25w 5d LOC: 05/04/21 Best: 25w 5d Det. By: Clinical LOC LOC: 05/04/21 Impression - Quiñones live intrauterine at 25w 5d. - Oligohydramnios. - Reassuring BPP. Recommendations See inpatient chart. Ultrasound is not diagnostic of chromosomal aneuploidy and does not detect all subtle defects. Normal ultrasound findings do not guarantee normal outcomes. Francesca López DO, FACOG Electronically Signed Final Report 01/24/2021 12:14 pm --- Final --- Dictated: 01/24/2021 11:30 am Dictating Physician: DO LÓPEZ KATHERINE BRIDGET Signed Date and Time: 01/24/2021 12:15 pm Signed by: DO LÓPEZ KATHERINE BRIDGET Ultrasound ACCESSION EXAM DATE/TIME PROCEDURE ORDERING PROVIDER [id number] 01/24/2021 11:29 EDT [facility] US Biophy w/o SPIKE ANDERSON non-stress Reason For Exam (MFM US Biophy w/o non-stress) PPROM Report OBSTETRICS REPORT (Signed Final 01/24/2021 12:14 pm) Patient Info ID #: [id number] : [birth year] (20 yrs) Name: RAYMOND BROWNLEE Visit Date: 01/24/2021 11:30 am Performed By Attending: Francesca López Referred By: SPIKE ANDERSON DO, FACOG Performed By: Norma Wallace Visit Type: Inpatient - [facility] Service(s) Provided Ultrasound Report BPP w/out NST 93420 Indications PPROM Vital Signs Weight (lb): 180 Height: 5'8 BMI: 27.37 Evaluation Num Of Fetuses: 1 Heart Rate(bpm): 143 Cardiac Activity: Regular rhythm Lie: Longitudinal Presentation: Cephalic Placenta: Anterior Amniotic Fluid JUAN FV: Oligohydramnios JUAN Sum(cm) %Tile Largest Pocket(cm) 3.2 < 3 2.5 RUQ(cm) RLQ(cm) LUQ(cm) LLQ(cm) 2.5 0 0.7 0 Comment: 2x2 pocket Biophysical Evaluation -- Amniotic F.V: within normal limits F. Tone: Observed F. Movement: Observed Score: 8/8 F. Breathing: Observed Gestational Age Clinical LOC: 25w 5d LOC: 05/04/21 Best: 25w 5d Det. By: Clinical LOC LOC: 05/04/21 Impression - Quiñones live intrauterine at 25w 5d. - Oligohydramnios. - Reassuring BPP. Recommendations See inpatient chart. Ultrasound is not diagnostic of chromosomal aneuploidy and does not detect all subtle defects. Normal ultrasound findings do not guarantee normal outcomes. Francesca López DO, FACOG Ultrasound Report Electronically Signed Final Report 01/24/2021 12:14 pm --- Final --- Dictated: 01/24/2021 11:30 am Dictating Physician: DO LÓPEZ KATHERINE BRIDGET Signed Date and Time: 01/24/2021 12:15 pm Signed by: DO LÓPEZ KATHERINE BRIDGET [facility] Work Phone: [facility] Work Phone: Glucose,Bedsideon 01-23-2021 Glucose [Mass/Vol] 101 mg/dL High 70-100 [facility] Comment on above: Result Comment: Test performed by glucose meter. Results may be 10%-15% lower than serum/plasma values. (CLIA ID [id number]) Performed By: #### B GLU #### [facility] [address] [place] [address] Glucose [Mass/Vol] 102 mg/dL High 70-100 [facility] Comment on above: Result Comment: Test performed by glucose meter. Results may be 10%-15% lower than serum/plasma values. (CLIA ID [id number]) Performed By: #### B GLU #### [facility] [address] [place] [address] Glucose [Mass/Vol] 127 mg/dL High 70-100 [facility] Comment on above: Result Comment: Test performed by glucose meter. Results may be 10%-15% lower than serum/plasma values. (CLIA ID [id number]) Performed By: #### T SGL #### [facility] Glucose,BedsideOrdered By: Benjamin Pérez on 01-23-2021 Glucose [Mass/Vol] 82 mg/dL Normal 70-100 [facility] Work Phone: Comment on above: Test performed by gl ucose meter. Results may be 10%-15% lower than serum/plasma values. (CLIA ID [id number]) Result Comment: Test performed by glucose meter. Results may be 10%-15% lower than serum/plasma values. (CLIA ID [id number]) Performed By: #### B GLU #### [facility] [address] [place] [address] POCT GlucoseOrdered By: Elaine Pérez on 01-23-2021 Glucose [Mass/Vol] 101 mg/dL High 70 - 100 mg/dL [facility] Work Phone: Comment on above: Test performed by gl ucose meter. Results may be 10%-15% lower than serum/plasma values. (CLIA ID [id number]) Interpretation and review of laboratory results Abnormal [facility] Work Phone: 1 Test Performed by [facility], [facility] [place] [address] [facility] Work Phone: 1 [facility] Work Phone: 1 Glucose [Mass/Vol] 102 mg/dL High 70 - 100 mg/dL [facility] Work Phone: 1 Comment on above: Test performed by gl ucose meter. Results may be 10%-15% lower than serum/plasma values. (CLIA ID [id number]) Interpretation and review of laboratory results Abnormal [facility] Work Phone: 1 Test Performed by [facility], [facility] [place] [address] [facility] Work Phone: 1) [facility] Work Phone: 1 Glucose [Mass/Vol] 127 mg/dL High 70 - 100 mg/dL [facility] Work Phone: 1 Comment on above: Test performed by gl ucose meter. Results may be 10%-15% lower than serum/plasma values. (CLIA ID [id number]) Interpretation and review of laboratory results Abnormal [facility] Work Phone: 1 Test Performed by [facility], [facility] [place] [address] [facility] Work Phone: 1 [facility] Work Phone: 1 Test Performed by [facility], [facility] [place] [address] [facility] Work Phone: 1 [facility] Work Phone: 1 Glucose,Bedsideon 01-22-2021 Glucose [Mass/Vol] 126 mg/dL High 70-100 [facility] [employer] Comment on above: Result Comment: Test performed by glucose meter. Results may be 10%-15% lower than serum/plasma values. (CLIA ID [id number]) Performed By: #### B GLU #### [facility] [place] [address] [place] [address] Glucose [Mass/Vol] 133 mg/dL High 70-100 [facility] [employer] Comment on above: Result Comment: Test performed by glucose meter. Results may be 10%-15% lower than serum/plasma values. (CLIA ID [id number]) Performed By: #### B GLU #### [facility] [address] [place] [address] Glucose [Mass/Vol] 119 mg/dL High 70-100 [facility] Comment on above: Result Comment: Test performed by glucose meter. Results may be 10%-15% lower than serum/plasma values. (CLIA ID [id number]) Performed By: #### B GLU #### [facility] [address] [place] [address] Group B Strep Screen PCRon 0 01-22-2021 Group B Strep Screen PCR Group B Strep Screen PCR --> Status: F POSITIVE Expected Result: Negative CDC guidelines for prevention of Group B Strep disease recommends collection of both vaginal and rectal specimens for optimal recovery of GBS. Methodology - Real Time PCR ([employer]) Expected Result: Negative CDC guidelines for prevention of Group B Strep disease recommends collection of both vaginal and rectal specimens for optimal recovery of GBS. Methodology - Real Time PCR ([employer]) 1 Organism Streptococcus agalactiae (Group B) Isolated: Susceptibility testing not routinely performed. Group B streptococcus is universally susceptible to beta-lactam antibiotics and vancomycin. If patient is beta-lactam allergic, please call [facility] Microbiology lab ([phone]) within 2 days to request susceptibility testing. If isolated from urine, Group B strep may indicate colonization or infection. 1 Organism Antibiotic Result Intrp Ampicillin(GABI) <= 0.25 S Inducible Clindamycin Resistant(GABI)Neg Neg Ceftriaxone(GABI) <= 0.12 S Clindamycin(GABI) <= 0.25 S Vancomycin(GABI) 0.5 S Levofloxacin(GABI) 1 S Linezolid(GABI) <= 2 S Tetracycline(GABI) >= 16 R Erythromycin(GABI) 2 R Penicillin-G(GABI) <= 0.06 S Normal [facility] Comment on above: Performed By: #### T SGL #### [facility] Group B Strep, PCROrdered By : Urmila Wright on 01-22-2021 Group B Strep Screen PCR POSITIVE Expected Result: Negative CDC guidelines for prevention of Group B Strep disease recommends collection of both vaginal and rectal specimens for optimal recovery of GBS. Methodology - Real Time PCR ([employer]) Abnormal [facility] Work Phone: Group B Strep Screen PCR Group B streptococcus Abnormal [facility] Work Phone: Group B Strep Screen PCR Isolated: Susceptibility testing not routinely performed. Group B streptococcus is universally susceptible to beta-lactam antibiotics and vancomycin. If patient is beta-lactam allergic, please call [facility] Microbiology lab ([phone]) within 2 days to request susceptibility testing. If isolated from urine, Group B strep may indicate colonization or infection. [facility] Work Phone: Interpretation and review of laboratory results Abnormal [facility] Work Phone: Test Per[facility] by [facility] [place] [address] [facility] Work Phone: [facility] Work Phone: POCT GlucoseOrdered By: Elaine Pérez on 01-22-2021 Glucose [Mass/Vol] 126 mg/dL High 70 - 100 mg/dL [facility] Work Phone: Comment on above: Test performed by ucose meter. Results may be 10%-15% lower than serum/plasma values. (CLIA ID [id number]) Interpretation and review of laboratory results Abnormal [facility] Work Phone: Test Performed by [facility], [address] [place] [address] [facility] Work Phone: 1 [facility] Work Phone: 1 Glucose [Mass/Vol] 133 mg/dL High 70 - 100 mg/dL [facility] Work Phone: 1 Comment on above: Test performed by gl ucose meter. Results may be 10%-15% lower than serum/plasma values. (CLIA ID [id number]) Interpretation and review of laboratory results Abnormal [facility] Work Phone: 1 Test Performed by [facility], [address] [place] [address] [facility] Work Phone: 1 [facility] Work Phone: 1 Glucose [Mass/Vol] 119 mg/dL High 70 - 100 mg/dL [facility] Work Phone: 1 Comment on above: Test performed by gl ucose meter. Results may be 10%-15% lower than serum/plasma values. (CLIA ID [id number]) Interpretation and review of laboratory results Abnormal [facility] Work Phone: 1 Test Performed by [facility], [address] [place] [address] [facility] Work Phone: 1 [facility] Work Phone: 1 TS GELon 01-22-2021 TS GEL ABO Group: A Rh, Gel: POS Antibody Screen Gel: NEG Normal [facility] Comment on above: Performed By: #### B GLU #### [facility] [address] [place] [address] TYPE AND SCREENOrdered By: Yashira Wright on 01-22-2021 ABO Grouping A [facility] Work Phone: 1 Rh Type Positive [facility] Work Phone: 1 Test Performed by [facility], [address] [place] [address] [facility] Work Phone: 1() [facility] Work Phone: 1 Glucose,Bedsideon 01-21-2021 Glucose [Mass/Vol] 103 mg/dL High 70-100 [facility] Comment on above: Result Comment: Test performed by glucose meter. Results may be 10%-15% lower than serum/plasma values. (CLIA ID [id number]) Performed By: #### B GLU #### [facility] [address] [place] [address] Glucose [Mass/Vol] 108 mg/dL High 70-100 [facility] Comment on above: Result Comment: Test performed by glucose meter. Results may be 10%-15% lower than serum/plasma values. (CLIA ID [id number]) Performed By: #### B GLU #### [facility] [place] [address] [place] [address] Glucose [Mass/Vol] 108 mg/dL High 70-100 [facility] Comment on above: Result Comment: Test performed by glucose meter. Results may be 10%-15% lower than serum/plasma values. (CLIA ID [id number]) Performed By: #### B GLU #### [facility] [place] [address] [place] [address] Glucose [Mass/Vol] 96 mg/dL Normal 70-100 [facility] Comment on above: Result Comment: Test performed by glucose meter. Results may be 10%-15% lower than serum/plasma values. (CLIA ID [id number]) Performed By: #### B GLU #### [facility] [place] [address] [place] [address] POCT GlucoseOrdered By: Elaine Pérez on 01-21-2021 Glucose [Mass/Vol] 103 mg/dL High 70 - 100 mg/dL [facility] Work Phone: Comment on above: Test performed by gl ucose meter. Results may be 10%-15% lower than serum/plasma values. (CLIA ID [id number]) Interpretation and review of laboratory results Abnormal [facility] Work Phone: Test Performed by [facility] [facility], [facility] [place] [address] [facility] Work Phone: [facility] Work Phone: Glucose [Mass/Vol] 108 mg/dL High 70 - 100 mg/dL [facility] Work Phone: 1 Comment on above: Test performed by gl ucose meter. Results may be 10%-15% lower than serum/plasma values. (CLIA ID [id number]) Interpretation and review of laboratory results Abnormal [facility] Work Phone: 1 Test Performed by [facility], [place] [address] [facility] Work Phone: 1 [facility] Work Phone: 1 Glucose [Mass/Vol] 108 mg/dL High 70 - 100 mg/dL [facility] Work Phone: 1 Comment on above: Test performed by gl ucose meter. Results may be 10%-15% lower than serum/plasma values. (CLIA ID [id number]) Interpretation and review of laboratory results Abnormal [facility] Work Phone: 1 Test Performed by [facility], [place] [address] [facility] Work Phone: 1 [facility] Work Phone: 1 Glucose [Mass/Vol] 96 mg/dL 70 - 100 mg/dL [facility] Work Phone: 1 Comment on above: Test performed by gl ucose meter. Results may be 10%-15% lower than serum/plasma values. (CLIA ID [id number]) Test Performed by [facility], [employer] [address] [facility] Work Phone: 1 [facility] Work Phone: 1 CULTURE URINEon 01-20-2021 CULTURE URINE CULTURE URINE --> Status: F No growth (<1,000 CFU/ml). Normal [facility] Comment on above: Performed By: #### T SGL #### [facility] Culture, UrineOrdered By: Yasmani Wright on 01-20-2021 Bacteria identified Cx Nom (U) No growth (<1,000 CFU/ml). [facility] Work Phone: 1 Test Performed by [facility], [address] [place] [address] [facility] Work Phone: [facility] Work Phone: Glucose,Bedsideon 01-20-2021 Glucose [Mass/Vol] 117 mg/dL High 70-100 [facility] Comment on above: Result Comment: Test performed by glucose meter. Results may be 10%-15% lower than serum/plasma values. (CLIA ID [id number]) Performed By: #### B GLU #### [facility] [address] [place] [address] Glucose [Mass/Vol] 166 mg/dL High 70-100 [facility] Comment on above: Result Comment: Test performed by glucose meter. Results may be 10%-15% lower than serum/plasma values. (CLIA ID [id number]) Performed By: #### B GLU #### [facility] [address] [place] [address] Glucose [Mass/Vol] 153 mg/dL High 70-100 [facility] Comment on above: Result Comment: Test performed by glucose meter. Results may be 10%-15% lower than serum/plasma values. (CLIA ID [id number]) Performed By: #### B GLU #### [facility] [address] [place] [address] Glucose [Mass/Vol] 106 mg/dL High 70-100 [facility] Comment on above: Result Comment: Test performed by glucose meter. Results may be 10%-15% lower than serum/plasma values. (CLIA ID [id number]) Performed By: #### B GLU #### [facility] [address] [place] [address] MFM US Biophy w/o non- stresson 01-20-2021 MFM US Biophy w/o non-stress Patient Name: RAYMOND BROWNLEE Maternal Medicine ACCESSION EXAM DATE/TIME PROCEDURE ORDERING PROVIDER [id number] 01/20/2021 14:06 EDT M US Biophy w/o SPIKE ANDERSON non-stress Reason For Exam (MFM US Biophy w/o non-stress) PPROM Report OBSTETRICS REPORT (Signed Final 01/20/2021 02:24 pm) Patient Info ID #: [id number] : [birth year] (20 yrs) Name: RAYMOND BROWNLEE Visit Date: 01/20/2021 02:13 pm Performed By Attending: Francesca López Location: [facility], [facility] Testing [facility] Performed By: Susan Gonzalez Visit Type: Inpatient - [facility] Referred By: SPIKE ANDERSON Service(s) Provided BPP w/out NST 24199 Indications PPROM Vital Signs Weight (lb): 180 Height: 5'8 BMI: 27.37 Evaluation Num Of Fetuses: 1 Heart Rate(bpm): 132 Cardiac Activity: Present Lie: Longitudinal Presentation: Cephalic Placenta: Anterior grade 1 Amniotic Fluid JUAN FV: Oligohydramnios JUAN Sum(cm) %Tile Largest Pocket(cm) 3.4 < 3 3.4 RUQ(cm) 3.4 Maternal Medicine Report Comment: + 2 X 2 cm pocket of fluid. Biophysical Evaluation -- Amniotic F.V: within normal limits F. Tone: Observed F. Movement: Observed Score: 8/8 F. Breathing: Observed Gestational Age Clinical LOC: 25w 1d LOC: 05/04/21 Best: 25w 1d Det. By: Clinical LOC LOC: 05/04/21 Impression - Quiñones live intrauterine at 25w 1d. - The amniotic fluid index is 3.4cm, which is oligohydramnios. - Reassuring BPP. Recommendations See inpatient chart. Ultrasound is not diagnostic of chromosomal aneuploidy and does not detect all subtle defects. Normal ultrasound findings do not guarantee normal outcomes. Francesca López DO, FACOG Electronically Signed Final Report 01/20/2021 02:24 pm Final Dictated: 01/20/2021 2:13 pm Dictating Physician: DO LÓPEZ KATHERINE BRIDGET Signed Date and Time: 01/20/2021 2:25 pm Signed by: DO LÓPEZ KATHERINE BRIDGET Ultrasound ACCESSION EXAM DATE/TIME PROCEDURE ORDERING PROVIDER [id number] 01/20/2021 14:06 EDT MFM US Biophy w/o MONICASPIKE non-stress Reason For Exam (MFM US Biophy w/o non-stress) PPROM Report OBSTETRICS REPORT (Signed Final 01/20/2021 02:24 pm) Patient Info ID #: [id number] : [birth year] (20 yrs) Name: RAYMOND BROWNLEE Visit Date: 01/20/2021 02:13 pm Performed By Attending: Francesca López Location: [facility] Testing and Imaging Center Performed By: Susan Gonzalez Visit Type: [facility] Ultrasound Report Referred By: SPIKE ANDERSON Service(s) Provided BPP w/out NST 12579 Indications PPROM Vital Signs Weight (lb): 180 Height: 5'8 BMI: 27.37 Evaluation Num Of Fetuses: 1 Heart Rate(bpm): 132 Cardiac Activity: Present Lie: Longitudinal Presentation: Cephalic Placenta: Anterior grade 1 Amniotic Fluid JUAN FV: Oligohydramnios JUAN Sum(cm) %Tile Largest Pocket(cm) 3.4 < 3 3.4 RUQ(cm) 3.4 Comment: + 2 X 2 cm pocket of fluid. Biophysical Evaluation -- Amniotic F.V: within normal limits F. Tone: Observed F. Movement: Observed Score: 8/8 F. Breathing: Observed Gestational Age Clinical LOC: 25w 1d LOC: 05/04/21 Best: 25w 1d Det. By: Clinical LOC LOC: 05/04/21 Impression - Quiñones live intrauterine at 25w 1d. - The amniotic fluid index is 3.4cm, which is oligohydramnios. - Reassuring BPP. Recommendations See inpatient chart. Ultrasound is not diagnostic of chromosomal aneuploidy and does not detect all subtle defects. Normal ultrasound findings do not guarantee normal outcomes. Francesca López DO, FACOG Ultrasound Report Electronically Signed Final Report 01/20/2021 02:24 pm Final Dictated: 01/20/2021 2:13 pm Dictating Physician: DO LÓPEZ KATHERINE BRIDGET Signed Date and Time: 01/20/2021 2:25 pm Signed by: DO LÓPEZ KATHERINE BRIDGET Normal [facility] [employer] POCT GlucoseOrdered By: Elaine Pérez on 01-20-2021 Glucose [Mass/Vol] 117 mg/dL High 70 - 100 mg/dL [employer] Work Phone: Comment on above: Test performed by gl ucose meter. Results may be 10%-15% lower than serum/plasma values. (CLIA ID [id number]) Interpretation and review of laboratory results Abnormal [employer] Work Phone: Test Performed by [employer], [address] [place] [id number] [employer] Work Phone: [employer] Work Phone: Glucose [Mass/Vol] 166 mg/dL High 70 - 100 mg/dL [employer] Work Phone: Comment on above: Test performed by gl ucose meter. Results may be 10%-15% lower than serum/plasma values. (CLIA ID [id number]) Interpretation and review of laboratory results Abnormal [facility] Work Phone: Test Performed by [employer], [place] [address] [facility] Work Phone: 1 [facility] Work Phone: 1 Glucose [Mass/Vol] 153 mg/dL High 70 - 100 mg/dL [employer] Work Phone: 1 Comment on above: Test performed by gl ucose meter. Results may be 10%-15% lower than serum/plasma values. (CLIA ID [id number]) Interpretation and review of laboratory results Abnormal [employer] Work Phone: [phone] Test Performed by [employer], [employer] [address] [employer] Work Phone: 1 [employer] Work Phone: 1 Glucose [Mass/Vol] 106 mg/dL High 70 - 100 mg/dL [employer] Work Phone: 1 Comment on above: Test performed by gl ucose meter. Results may be 10%-15% lower than serum/plasma values. (CLIA ID [id number]) Interpretation and review of laboratory results Abnormal [employer] Work Phone: [phone] Test Performed by [employer], [place] [address] [employer] Work Phone: 1 [employer] Work Phone: 1 US BIOPHYSICAL PROFILE WO NON STRESS TESTINGOrdered By: Spike Anderson on 01-20-2021 Patient Name: RAYMOND BROWNLEE Maternal Medicine ACCESSION EXAM DATE/TIME PROCEDURE ORDERING PROVIDER [id number] 01/20/2021 14:06 EDT MFM US Biophy w/o SPIKE ANDERSON non-stress Reason For Exam (MFM US Biophy w/o non-stress) PPROM Report OBSTETRICS REPORT (Signed Final 01/20/2021 02:24 pm) Patient Info ID #: [id number] : [birth year] (20 yrs) Name: RAYMOND BROWNLEE Visit Date: 01/20/2021 02:13 pm Performed By Attending: Francesca López Location: [facility] Performed By: Susan Gonzalez Visit Type: Inpatient - [facility] Referred By: SPKIE ANDERSON Service(s) Provided BPP w/out NST 58210 Indications PPROM Vital Signs Weight (lb): 180 Height: 5'8 BMI: 27.37 Evaluation Num Of Fetuses: 1 Heart Rate(bpm): 132 Cardiac Activity: Present Lie: Longitudinal Presentation: Cephalic Placenta: Anterior grade 1 Amniotic Fluid JUAN FV: Oligohydramnios JUAN Sum(cm) %Tile Largest Pocket(cm) 3.4 < 3 3.4 RUQ(cm) 3.4 Maternal Medicine Report Comment: + 2 X 2 cm pocket of fluid. Biophysical Evaluation -- Amniotic F.V: within normal limits F. Tone: Observed F. Movement: Observed Score: 8/8 F. Breathing: Observed Gestational Age Clinical LOC: 25w 1d LOC: 05/04/21 Best: 25w 1d Det. By: Clinical LOC LOC: 05/04/21 Impression - Quiñones live intrauterine at 25w 1d. - The amniotic fluid index is 3.4cm, which is oligohydramnios. - Reassuring BPP. Recommendations See inpatient chart. Ultrasound is not diagnostic of chromosomal aneuploidy and does not detect all subtle defects. Normal ultrasound findings do not guarantee normal outcomes. Francesca López DO, FACOG Electronically Signed Final Report 01/20/2021 02:24 pm --- Final --- Dictated: 01/20/2021 2:13 pm Dictating Physician: DO LÓPEZ KATHERINE BRIDGET Signed Date and Time: 01/20/2021 2:25 pm Signed by: DO LÓPEZ KATHERINE BRIDGET Ultrasound ACCESSION EXAM DATE/TIME PROCEDURE ORDERING PROVIDER [id number] 01/20/2021 14:06 EDT [facility] US Biophy w/o SPIKE ANDERSON non-stress Reason For Exam (MFM US Biophy w/o non-stress) PPROM Report OBSTETRICS REPORT (Signed Final 01/20/2021 02:24 pm) Patient Info ID #: [id number] : [birth year] (20 yrs) Name: RAYMOND BROWNLEE Visit Date: 01/20/2021 02:13 pm Performed By Attending: Francesca López Location: [facility] Testing & Imaging Center Performed By: Susan [place] Visit Type: Inpatient [facility] Ultrasound Report Referred By: SPIKE ANDERSON Service(s) Provided BPP w/out T 33178 Indications PPROM Vital Signs Weight (lb): 180 Height: 5'8 BMI: 27.37 Evaluation Num Of Fetuses: 1 Heart Rate(bpm): 132 Cardiac Activity: Present Lie: Longitudinal Presentation: Cephalic Placenta: Anterior grade 1 Amniotic Fluid JUAN FV: Oligohydramnios JUAN Sum(cm) %Tile Largest Pocket(cm) 3.4 < 3 3.4 RUQ(cm) 3.4 Comment: + 2 X 2 cm pocket of fluid. Biophysical Evaluation -- Amniotic F.V: within normal limits F. Tone: Observed F. Movement: Observed Score: 8/8 F. Breathing: Observed Gestational Age Clinical LOC: 25w 1d LOC: 05/04/21 Best: 25w 1d Det. By: Clinical LOC LOC: 09/22/21 Impression - Quiñones live intrauterine at 25w 1d. - The amniotic fluid index is 3.4cm, which is oligohydramnios. - Reassuring BPP. Recommendations See inpatient chart. Ultrasound is not diagnostic of chromosomal aneuploidy and does not detect all subtle defects. Normal ultrasound findings do not guarantee normal outcomes. Francesca López, [facility] (more content not included)... [facility] Work Phone: [facility], [facility] Incoming Radiology Results From [facility] - 01/20/2021 2:25 PM EDT Patient Name: RAYMOND BROWNLEE Maternal Medicine ACCESSION EXAM DATE/TIME PROCEDURE ORDERING PROVIDER [id number] 01/20/2021 14:06 EDT MFM US Biophy w/o SPIKE ANDERSON non-stress Reason For Exam (MFM US Biophy w/o non-stress) PPROM Report OBSTETRICS REPORT (Signed Final 01/20/2021 02:24 pm) Patient Info ID #: [id number] : [birth year] (20 yrs) Name: RAYMOND BROWNLEE Visit Date: 01/20/2021 02:13 pm Performed By Attending: Francesca López Location: [facility] , [facility] Testing & Imaging Center Performed By: Susan Gonzalez Visit Type: Inpatient - [facility] Referred By: SPIKE ANDERSON Service(s) Provided BPP w/out NST 24532 Indications PPROM Vital Signs Weight (lb): 180 Height: 5'8 BMI: 27.37 Evaluation Num Of Fetuses: 1 Heart Rate(bpm): 132 Cardiac Activity: Present Lie: Longitudinal Presentation: Cephalic Placenta: Anterior grade 1 Amniotic Fluid JUAN FV: Oligohydramnios JUAN Sum(cm) %Tile Largest Pocket(cm) 3.4 < 3 3.4 RUQ(cm) 3.4 Maternal Medicine Report Comment: + 2 X 2 cm pocket of fluid. Biophysical Evaluation -- Amniotic F.V: within normal limits F. Tone: Observed F. Movement: Observed Score: 8/8 F. Breathing: Observed Gestational Age Clinical LOC: 25w 1d LOC: 05/04/21 Best: 25w 1d Det. By: Clinical LOC LOC: 05/04/21 Impression - Quiñones live intrauterine at 25w 1d. - The amniotic fluid index is 3.4cm, which is oligohydramnios. - Reassuring BPP. Recommendations See inpatient chart. Ultrasound is not diagnostic of chromosomal aneuploidy and does not detect all subtle defects. Normal ultrasound findings do not guarantee normal outcomes. Francesca López DO, FACOG Electronically Signed Final Report 01/20/2021 02:24 pm --- Final --- Dictated: 01/20/2021 2:13 pm Dictating Physician: DO LÓPEZ KATHERINE BRIDGET Signed Date and Time: 01/20/2021 2:25 pm Signed by: DO LÓPEZ KATHERINE BRIDGET Ultrasound ACCESSION EXAM DATE/TIME PROCEDURE ORDERING PROVIDER [id number] 01/20/2021 14:06 EDT [facility] US Biophy w/o SPIKE ANDERSON non-stress Reason For Exam (MFM US Biophy w/o non-stress) PPROM Report OBSTETRICS REPORT (Signed Final 01/20/2021 02:24 pm) Patient Info ID #: [id number] : [birth year] (20 yrs) Name: RAYMOND BROWNLEE Visit Date: 01/20/2021 02:13 pm Performed By Attending: Francesca López [facility] Performed By: Susan Gonzalez Visit Type: Inpatient - [facility] Ultrasound Report Referred By: SPIKE ANDERSON Service(s) Provided BPP w/out NST 79562 Indications PPROM Vital Signs Weight (lb): 180 Height: 5'8 BMI: 27.37 Evaluation Num Of Fetuses: 1 Heart Rate(bpm): 132 Cardiac Activity: Present Lie: Longitudinal Presentation: Cephalic Placenta: Anterior grade 1 Amniotic Fluid JUAN FV: Oligohydramnios JUAN Sum(cm) %Tile Largest Pocket(cm) 3.4 < 3 3.4 RUQ(cm) 3.4 Comment: + 2 X 2 cm pocket of fluid. Biophysical Evaluation -- Amniotic F.V: within normal limits F. Tone: Observed F. Movement: Observed Score: 8/8 F. Breathing: Observed Gestational Age Clinical LOC: 25w 1d LOC: 05/04/21 Best: 25w 1d Det. By: Clinical LOC LOC: 05/04/21 Impression - Quiñones live intrauterine at 25w 1d. - The amniotic fluid index is 3.4cm, which is oligohydramnios. - Reassuring BPP. Recommendations See inpatient chart. Ultrasound is not diagnostic of chromosomal aneuploidy and does not detect all subtle defects. Normal ultrasound findings do not guarantee normal outcomes. Francesca López DO, FACOG Ultrasound Report Electronically Signed Final Report 01/20/2021 02:24 pm --- Final --- Dictated: 01/20/2021 2:13 pm Dictating Physician: DO LÓPEZ KATHERINE BRIDGET Signed Date and Time: 01/20/2021 2:25 pm Signed by: DO LÓPEZ KATHERINE BRIDGET [facility] Work Phone: [facility] Work Phone: 1 C. Trachomatis / N. Gonorrho eae, DNA ProbeOrdered By: Urmila Wright on 01-19-2021 C. trachomatis DNA LANNY+probe Ql (Genital specimen) NOT Detected Chlamydia trachomatis Nucleic Acid NOT Detected by DNA Amplification using the CepEdutorid System. Culture is the only recommended test in medical-legal cases such as suspected child abuse or molestation. [facility] Work Phone: 1 N. gonorrhoeae DNA LANNY+probe Ql (Unsp spec) NOT Detected Neisseria gonorrhoeae Nucleic Acid NOT Detected by DNA Amplification using the Cepheid System. Culture is the only recommended test in medical-legal cases such as suspected child abuse or molestation. [facility] Work Phone: 1 Test Performed by [facility], [address] [place] [address] [facility] Work Phone: 1 [facility] Phone: 1 CBCOrdered By: Urmila russell on 01-19-2021 Hematocrit (Bld) [Volume fraction] 33.8 % Low 35.0 - 47.0 % [facility] Work Phone: Hemoglobin.gastrointes tinal spec 1 Ql (Stl) 11.6 g/dL Low 11.7 - 16.0 g/dL [facility] Phone: 1 Interpretation and review of laboratory results Abnormal [facility] Phone: 1 MCH (RBC) [Entitic mass] 29.6 pg 26.0 - 34.0 pg [facility] Work Phone: MCHC (RBC) [Mass/Vol] 34.2 % 32.0 - 36.0 % [facility] Phone: 1 MCV (RBC) [Entitic vol] 86.6 fL 79.0 - 98.0 fL [facility] Phone: Platelet distribution width (Bld) [Ratio] 13.0 % 11.5 - 14.5 % [facility] Phone: Platelet mean volume (Bld) [Entitic vol] 10.1 fL 7.4 - 10.4 fL [facility] Work Phone: 1 22 Platelets (Bld) [#/Vol] 221 10*3/uL 140 - 440 10*3/uL [facility] Work Phone: 1 22 RBC (Bld) [#/Vol] 3.91 10*6/uL 3.80 - 5.2 0 10*6/uL [facility] Work Phone: 1 22 WBC (Bld) [#/Vol] 10.2 10*3/uL 3.6 - 10.7 10*3/uL [facility] Work Phone: 1 22 Test Performed by [facility], [address] [place] [address] [facility] Work Phone: 1 [facility] Work Phone: 1 22 Chlamydia and GC PCR Panelon 01-19-2021 Chlamydia and GC PCR Panel Chlamydia trachomatis PCR --> Status: F NOT Detected Chlamydia trachomatis Nucleic Acid NOT Detected by DNA Amplification using the Cepheid System. Culture is the only recommended test in medical-legal cases such as suspected child abuse or molestation. Chlamydia trachomatis Nucleic Acid NOT Detected by DNA Amplification using the Cepheid System. Culture is the only recommended test in medical-legal cases such as suspected child abuse or molestation. Neisseria gonorrhoeae PCR --> Status: F NOT Detected Neisseria gonorrhoeae Nucleic Acid NOT Detected by DNA Amplification using the Cepheid System. Culture is the only recommended test in medical-legal cases such as suspected child abuse or molestation. Neisseria gonorrhoeae Nucleic Acid NOT Detected by DNA Amplification using the Cepheid System. Culture is the only recommended test in medical-legal cases such as suspected child abuse or molestation. Normal [facility] Comment on above: Performed By: #### T SGL #### [facility] Glucose,Bedsideon 01-19-2021 Glucose [Mass/Vol] 123 mg/dL High 70-100 [facility] Comment on above: Result Comment: Test performed by glucose meter. Results may be 10%-15% lower than serum/plasma values. (CLIA ID [id number]) Performed By: #### B GLU #### [facility] [address] [place] [address] Glucose [Mass/Vol] 114 mg/dL High 70-100 [facility] Comment on above: Result Comment: Test performed by glucose meter. Results may be 10%-15% lower than serum/plasma values. (CLIA ID [id number]) Performed By: #### B GLU #### [place] [address] [place] Glucose [Mass/Vol] 85 mg/dL Normal 70-100 [facility] Comment on above: Result Comment: Test performed by glucose meter. Results may be 10%-15% lower than serum/plasma values. (CLIA ID [id number]) Performed By: #### B GLU #### [place] [address] [address] [place], [place] Hemogramon 01-19-2021 Erythrocyte distribution width (RBC) [Ratio] 13.0 % Normal 11.5-14.5 [facility] Comment on above: Performed By: #### B GLU #### [place] [address] [address] [place], [place] Hematocrit (Bld) [Volume fraction] 33.8 % Low 35.0-47.0 [facility] Comment on above: Performed By: #### B GLU #### [place] [address] [address] [place], [place] Hemoglobin (Bld) [Mass/Vol] 11.6 g/dL Low 11.7-16.0 [facility] Comment on above: Performed By: #### B GLU #### [place] [address] [address] [place], [place] MCH (RBC) [Entitic mass] 29.6 pg Normal 26.0-34.0 [facility] Comment on above: Performed By: #### B GLU #### [place] [address] [address] [place], [place] MCHC 34.2 % Normal 32.0-36.0 [facility] Comment on above: Performed By: #### B GLU #### [place] [address] [address] [place], [place] MCV (RBC) [Entitic vol] 86.6 fL Normal 79.0-98.0 [facility] Comment on above: Performed By: #### B GLU #### [facility] [address] [place], [place] Platelet mean volume (Bld) [Entitic vol] 10.1 fL Normal 7.4-10.4 [facility] Comment on above: Performed By: #### B GLU #### [facility] [address] [place], [place] Platelets (Bld) [#/Vol] 221 10*3/uL Normal 140-440 [facility] Comment on above: Performed By: #### B GLU #### [facility] [address] [place], [place] RBC (Bld) [#/Vol] 3.91 10*6/uL Normal 3.80-5.20 [facility] Comment on above: Performed By: #### B GLU #### [facility] [address] [place], [place] WBC (Bld) [#/Vol] 10.2 10*3/uL Normal 3.6-10.7 [facility] Comment on above: Performed By: #### B GLU #### [facility] [address] [place], [place] [facility] US Follow Upon 01-19-2021 [facility] US Follow Up Patient Name: RAYMOND BROWNLEE Maternal Medicine ACCESSION EXAM DATE/TIME PROCEDURE ORDERING PROVIDER [id number] 01/19/2021 10:20 EDT [facility] US Follow DO WRIGHT HANNAH Up Reason For Exam ([facility] US Follow Up) pprom Report OBSTETRICS REPORT (Signed Final 01/19/2021 10:38 am) Patient Info ID #: [id number] : [birth year] (20 yrs) Name: RAYMOND BROWNLEE Visit Date: 01/19/2021 10:21 am Performed By Attending: Francesca López Location[facility] Performed By: Susan Gonzalez Visit Type: Inpatient - [facility] Referred By: URMILA WRIGHT Service(s) [place] [address] [id number] Indications PPROM Vital Signs Weight (lb): 180 Height: 5'8 BMI: 27.37 Evaluation Num Of Fetuses: 1 Heart Rate(bpm): 126 Cardiac Activity: Present Lie: Longitudinal Presentation: Cephalic Placenta: Anterior grade 2 Amniotic Fluid JUAN FV: Oligohydramnios JUAN Sum(cm) %Tile Largest Pocket(cm) 5.1 < 3 2.1 RUQ(cm) LUQ(cm) LLQ(cm) Maternal Medicine Report 1.4 1.6 2.1 Comment: + 2 x 2 cm pocket of fluid is seen Biometry -------- BPD: 62.1 mm G. Age: 25w 2d 49 % CI: 73.7 % 70 - 86 OFD: 84.3 mm FL/HC: 18.6 % 18.7 - 20.3 HC: 234.5 mm G. Age: 25w 3d 47 % HC/AC: 1.15 1.04 - 1.22 AC: 203.7 mm G. Age: 25w 0d 41 % FL/BPD: 70.4 % 71 - 87 FL: 43.7 mm G. Age: 24w 3d 19 % FL/AC: 21.5 % 20 - 24 HUM: 40.9 mm G. Age: 24w 6d 38 % CER: 29.2 mm G. Age: 26w 1d 68 % LV: 9.38 mm TIB: 38.4 mm G. Age: 24w 4d 36 % Est. FW: 737 gm 1 lb 10 oz 45 % Gestational Age Clinical LOC: 25w 0d LOC: 05/04/21 U/S Today: 25w 0d LOC: 05/04/21 Best: 25w 0d Det. By: Clinical LOC LOC: 05/04/21 Anatomy ------- Cranium: Normal appearance LVOT: Normal appearance Cavum: Normal appearance Aortic Arch: Normal appearance Ventricles: Normal appearance Ductal Arch: Normal appearance Choroid Plexus: Normal appearance Diaphragm: Normal appearance Cerebellum: Normal appearance Stomach: Normal appearance Posterior Fossa: Normal appearance Abdomen: Normal appearance Nuchal Fold: Normal appearance Abdominal Wall: Normal appearance Face: Suboptimal views Cord Vessels: Normal 3-Vessel Cord Lips: Suboptimal views Kidneys: Normal appearance Palate: Normal appearance Bladder: Normal appearance Thoracic: Normal appearance Spine: Suboptimal views Heart: Suboptimal views Upper Extremities: Present RVOT: Normal appearance Lower Extremities: Present Impression Quiñones live intrauterine at 25w 0d. Normal growth; EFW 737 grams, which is at the 45% for this gestational age. Oligohydramnios. Suspected clubbed foot on prior ultrasound, unable to visualized feet adequately today due to oligohydramnios. Recommendations See inpatient chart. Ultrasound is not diagnostic of chromosomal aneuploidy and does not detect all subtle defects. Normal ultrasound findings do not guarantee normal outcomes. Francesca López DO, FACOG Maternal Medicine Report Electronically Signed Final Report 01/19/2021 10:38 am Final Dictated: 01/19/2021 10:21 am Dictating Physician: DO LÓPEZ KATHERINE BRIDGET Signed Date and Time: 01/19/2021 10:39 am Signed by: DO LÓPEZ KATHERINE BRIDGET Ultrasound ACCESSION EXAM DATE/TIME PROCEDURE ORDERING PROVIDER [id number] 01/19/2021 10:20 EDT [facility] US Follow DO WRIGHT HANNAH Up Reason For Exam ([facility] US Follow Up) pprom Report OBSTETRICS REPORT (Signed Final 01/19/2021 10:38 am) Patient Info ID #: [id number] : [birth year] (20 yrs) Name: RAYMOND BROWNLEE Visit Date: 01/19/2021 10:21 am Performed By Attending: Francesca López Location: [facility] Performed By: Susan Gonzalez Visit Type: Inpatient - [facility] Referred By: URMILA WRIGHT Service(s) [place] [id number] Indications PPROM Vital Signs Weight (lb): 180 Height: 5'8 BMI: 27.37 Evaluation Num Of Fetuses: 1 Heart Rate(bpm): 126 Cardiac Activity: Present Lie: Longitudinal Presentation: Cephalic Placenta: Anterior grade 2 Amniotic Fluid JUAN FV: Oligohydramnios Ultrasound Report JUAN Sum(cm) %Tile Largest Pocket(cm) 5.1 < 3 2.1 RUQ(cm) LUQ(cm) LLQ(cm) 1.4 1.6 2.1 Comment: + 2 x 2 cm pocket of fluid is seen Biometry -------- BPD: 62.1 mm G. Age: 25w 2d 49 % CI: 73.7 % 70 - 86 OFD: 84.3 mm FL/HC: 18.6 % 18.7 - 20.3 HC: 234.5 mm G. Age: 25w 3d 47 % HC/AC: 1.15 1.04 - 1.22 AC: 203.7 mm G. Age: 25w 0d 41 % FL/BPD: 70.4 % 71 - 87 FL: 43.7 mm G. Age: 24w 3d 19 % FL/AC: 21.5 % 20 - (more content not included)... Normal [facility] POCT GlucoseOrdered By: Elaine Pérez on 01-19-2021 Glucose [Mass/Vol] 123 mg/dL High 70 - 100 mg/dL [facility] Work Phone: Comment on above: Test performed by ucose meter. Results may be 10%-15% lower than serum/plasma values. (CLIA ID [id number]) Interpretation and review of laboratory results Abnormal [facility] Work Phone: Test Performed by [employer], [address] [place] [address] [facility] Work Phone: [facility] Work Phone: Glucose [Mass/Vol] 114 mg/dL High 70 - 100 mg/dL [facility] Work Phone: 1 Comment on above: Test performed by gl ucose meter. Results may be 10%-15% lower than serum/plasma values. (CLIA ID [id number]) Interpretation and review of laboratory results Abnormal [facility] Work Phone: 1 Test Performed by [employer], [address] [place] [phone] [facility] Work Phone: 1 [facility] Work Phone: 1 Glucose [Mass/Vol] 85 mg/dL 70 - 100 mg/dL [facility] Work Phone: 1 Comment on above: Test performed by gl ucose meter. Results may be 10%-15% lower than serum/plasma values. (CLIA ID [id number]) Test Performed by [facility], [address] [place] [id number] [place], [place] [address] Work Phone: 1 [facility] Work Phone: 1 TS GELon 01-19-2021 TS GEL ABO Group: A Rh, Gel: POS Antibody Screen Gel: NEG Normal [facility] Comment on above: Performed By: #### B GLU #### [facility] [address] [place] [phone] TYPE AND SCREENOrdered By: Yashira Wright on 01-19-2021 ABO Grouping A [facility] Work Phone: 1 Rh Type Positive [facility] Work Phone: 1 Test Performed by [facility], [address] [place] [id number] [place], [place] [address] Work Phone: 1 [facility] Work Phone: 1 Trichomonas Vaginali, Molecu larOrdered By: Urmila Wright on 01-19-2021 Trichomonas Vaginali, Molecular NOT Detected Reference Interval: Not Detected Method: Real-time PCR. Negative results do not completely rule out infection with Trichomonas vaginalis. [facility] Work Phone: 1 Test Performed by [facility], [address] [place] [address] [facility] Work Phone: [facility] Work Phone: Trichomonas vaginalis PCRon 01-19-2021 Trichomonas vaginalis PCR Trichomonas vaginalis PCR --> Status: F NOT Detected Reference Interval: Not Detected Method: Real-time PCR. Negative results do not completely rule out infection with Trichomonas vaginalis. Reference Interval: Not Detected Method: Real-time PCR. Negative results do not completely rule out infection with Trichomonas vaginalis. Normal [facility] Comment on above: Performed By: #### T SGL #### [employer] [facility] US OB FOLLOW UP TRANSABDOMIN AL APPROACHOrdered By: Urmila Wright on 01-19-2021 Patient Name: RAYMOND BROWNLEE Maternal Medicine ACCESSION EXAM DATE/TIME PROCEDURE ORDERING PROVIDER [id number] 01/19/2021 10:20 EDT [facility] US Follow DO WRIGHT HANNAH Up Reason For Exam ([facility] US Follow Up) pprom Report OBSTETRICS REPORT (Signed Final 01/19/2021 10:38 am) Patient Info ID #: [id number] : [birth year] (20 yrs) Name: RAYMOND BROWNLEE Visit Date: 01/19/2021 10:21 am Performed By Attending: Francesca López Location: [facility], [facility] Performed By: Susan Gonzalez Visit Type: Inpatient - [facility] RDMS Referred By: URMILA WRIGHT Service(s) [place] [id number] Indications PPROM Vital Signs Weight (lb): 180 Height: 5'8 BMI: 27.37 Evaluation Num Of Fetuses: 1 Heart Rate(bpm): 126 Cardiac Activity: Present Lie: Longitudinal Presentation: Cephalic Placenta: Anterior grade 2 Amniotic Fluid JUAN FV: Oligohydramnios JUAN Sum(cm) %Tile Largest Pocket(cm) 5.1 < 3 2.1 RUQ(cm) LUQ(cm) LLQ(cm) Maternal Medicine Report 1.4 1.6 2.1 Comment: + 2 x 2 cm pocket of fluid is seen Biometry -------- BPD: 62.1 mm G. Age: 25w 2d 49 % CI: 73.7 % 70 - 86 OFD: 84.3 mm FL/HC: 18.6 % 18.7 - 20.3 HC: 234.5 mm G. Age: 25w 3d 47 % HC/AC: 1.15 1.04 - 1.22 AC: 203.7 mm G. Age: 25w 0d 41 % FL/BPD: 70.4 % 71 - 87 FL: 43.7 mm G. Age: 24w 3d 19 % FL/AC: 21.5 % 20 - 24 HUM: 40.9 mm G. Age: 24w 6d 38 % CER: 29.2 mm G. Age: 26w 1d 68 % LV: 9.38 mm TIB: 38.4 mm G. Age: 24w 4d 36 % Est. FW: 737 gm 1 lb 10 oz 45 % Gestational Age Clinical LOC: 25w 0d LOC: 05/04/21 U/S Today: 25w 0d LOC: 05/04/21 Best: 25w 0d Det. By: Clinical LOC LOC: 05/04/21 Anatomy ------- Cranium: Normal appearance LVOT: Normal appearance Cavum: Normal appearance Aortic Arch: Normal appearance Ventricles: Normal appearance Ductal Arch: Normal appearance Choroid Plexus: Normal appearance Diaphragm: Normal appearance Cerebellum: Normal appearance Stomach: Normal appearance Posterior Fossa: Normal appearance Abdomen: Normal appearance Nuchal Fold: Normal appearance Abdominal Wall: Normal appearance Face: Suboptimal views Cord Vessels: Normal 3-Vessel Cord Lips: Suboptimal views Kidneys: Normal appearance Palate: Normal appearance Bladder: Normal appearance Thoracic: Normal appearance Spine: Suboptimal views Heart: Suboptimal views Upper Extremities: Present RVOT: Normal appearance Lower Extremities: Present Impression Quiñones live intrauterine at 25w 0d. Normal growth; EFW 737 grams, which is at the 45% for this gestational age. Oligohydramnios. Suspected clubbed foot on prior ultrasound, unable to visualized feet adequately today due to oligohydramnios. Recommendations See inpatient chart. Ultrasound is not diagnostic of chromosomal aneuploidy and does not detect all subtle defects. Normal ultrasound findings do not guarantee normal outcomes. Francesca López DO, FACOG Maternal Medicine Report Electronically Signed Final Report 01/19/2021 10:38 am --- Final --- Dictated: 01/19/2021 10:21 am Dictating Physician: DO LÓPEZ KATHERINE BRIDGET Signed Date and Time: 01/19/2021 10:39 am Signed by: DO LÓPEZ KATHERINE BRIDGET Ultrasound ACCESSION EXAM DATE/TIME PROCEDURE ORDERING PROVIDER [id number] 01/19/2021 10:20 EDT [facility] US Follow DO WRIGHT HANNAH Up Reason For Exam ([facility] US Follow Up) pprom Report OBSTETRICS REPORT (Signed Final 01/19/2021 (more content not included)... [facility] Work Phone: Fredy, [facility] Incoming Radiology Results From [facility] - 01/19/2021 10:39 AM EDT Patient Name: RAYMOND BROWNLEE Maternal Medicine ACCESSION EXAM DATE/TIME PROCEDURE ORDERING PROVIDER [id number] 01/19/2021 10:20 EDT [facility] US Follow DO WRIGHT HANNAH Up Reason For Exam ([facility] US Follow Up) pprom Report OBSTETRICS REPORT (Signed Final 01/19/2021 10:38 am) Patient Info ID #: [id number] : [birth year] (20 yrs) Name: RAYMOND BROWNLEE Visit Date: 01/19/2021 10:21 am Performed By Attending: Francesca López Location: [facility] Performed By: Susan Gonzalez Visit Type: Inpatient - [facility] RDMS Referred By: URMILA WRIGHT Service(s) [place] [id number] Indications PPROM Vital Signs Weight (lb): 180 Height: 5'8 BMI: 27.37 Evaluation Num Of Fetuses: 1 Heart Rate(bpm): 126 Cardiac Activity: Present Lie: Longitudinal Presentation: Cephalic Placenta: Anterior grade 2 Amniotic Fluid JUAN FV: Oligohydramnios JUAN Sum(cm) %Tile Largest Pocket(cm) 5.1 < 3 2.1 RUQ(cm) LUQ(cm) LLQ(cm) Maternal Medicine Report 1.4 1.6 2.1 Comment: + 2 x 2 cm pocket of fluid is seen Biometry -------- BPD: 62.1 mm G. Age: 25w 2d 49 % CI: 73.7 % 70 - 86 OFD: 84.3 mm FL/HC: 18.6 % 18.7 - 20.3 HC: 234.5 mm G. Age: 25w 3d 47 % HC/AC: 1.15 1.04 - 1.22 AC: 203.7 mm G. Age: 25w 0d 41 % FL/BPD: 70.4 % 71 - 87 FL: 43.7 mm G. Age: 24w 3d 19 % FL/AC: 21.5 % 20 - 24 HUM: 40.9 mm G. Age: 24w 6d 38 % CER: 29.2 mm G. Age: 26w 1d 68 % LV: 9.38 mm TIB: 38.4 mm G. Age: 24w 4d 36 % Est. FW: 737 gm 1 lb 10 oz 45 % Gestational Age Clinical LOC: 25w 0d LOC: 05/04/21 U/S Today: 25w 0d LOC: 05/04/21 Best: 25w 0d Det. By: Clinical LOC LOC: 05/04/21 Anatomy ------- Cranium: Normal appearance LVOT: Normal appearance Cavum: Normal appearance Aortic Arch: Normal appearance Ventricles: Normal appearance Ductal Arch: Normal appearance Choroid Plexus: Normal appearance Diaphragm: Normal appearance Cerebellum: Normal appearance Stomach: Normal appearance Posterior Fossa: Normal appearance Abdomen: Normal appearance Nuchal Fold: Normal appearance Abdominal Wall: Normal appearance Face: Suboptimal views Cord Vessels: Normal 3-Vessel Cord Lips: Suboptimal views Kidneys: Normal appearance Palate: Normal appearance Bladder: Normal appearance Thoracic: Normal appearance Spine: Suboptimal views Heart: Suboptimal views Upper Extremities: Present RVOT: Normal appearance Lower Extremities: Present Impression Quiñones live intrauterine at 25w 0d. Normal growth; EFW 737 grams, which is at the 45% for this gestational age. Oligohydramnios. Suspected clubbed foot on prior ultrasound, unable to visualized feet adequately today due to oligohydramnios. Recommendations See inpatient chart. Ultrasound is not diagnostic of chromosomal aneuploidy and does not detect all subtle defects. Normal ultrasound findings do not guarantee normal outcomes. Francesca López DO, FACOG Maternal Medicine Report Electronically Signed Final Report 01/19/2021 10:38 am --- Final --- Dictated: 01/19/2021 10:21 am Dictating Physician: DO LÓPEZ KATHERINE BRIDGET Signed Date and Time: 01/19/2021 10:39 am Signed by: DO LÓPEZ KATHERINE BRIDGET Ultrasound ACCESSION EXAM DATE/TIME PROCEDURE ORDERING PROVIDER [id number] 01/19/2021 10:20 EDT [facility] US Follow DO WRIGHT HANNAH Up Reason For Exam ([facility] US Follow Up) pprom Report OBSTETRICS REPORT (Signed Final 01/19/2021 10:38 am) Patient Info ID #: [id number] : [birth year] (20 yrs) Name: RAYMOND BROWNLEE Visit Date: 01/19/2021 10:21 am Performed By Attending: Francesca López Location: [facility] Performed By: Susan Gonzalez Visit Type: Inpatient - [facility] RD[facility] Referred By: URMILA WRIGHT Service(s) [place] [id number] Indications PPROM Vital Signs Weight (lb): 180 Height: 5'8 BMI: 27.37 Evaluation Num Of Fetuses: 1 Heart Rate(bpm): 126 Cardiac Activity: Present Lie: Longitudinal Presentation: Cephalic Placenta: Anterior grade 2 Amniotic Fluid JUAN FV: Oligohydramnios Ultrasound Report JUAN Sum(cm) %Tile Largest Pocket(cm) 5.1 < 3 2.1 RUQ(cm) LUQ(cm) LLQ(cm) 1.4 1.6 2.1 Comment: + 2 x 2 cm pocket of fluid is seen Biometry -------- BPD: 62.1 mm G. Age: 25w 2d 49 % CI: 73.7 % 70 - 86 OFD: (more content not included)... [facility] Work Phone: [facility] Work Phone: PTGENon 01-05-2021 PT Gene Mut See Below Normal [facility] ([place]) Comment on above: Result Comment: (NOT E) Prothrombin Gene Mutation Result: NORMAL Interpretation: The DNA sample is negative for the c.*97G>A variant (legacy name 58762P>A) in the 3' untranslated region of the Factor II (F2) gene. This result is not assiciated with an increased risk of thromboembolic disease. Thromboembolic disease is a multifactorial disorder and other causes are not excluded by this result. Methodology: Isolated Genomic DNA from the patient's blood specimen is evaluated for the c*97G>A ([id number]) variant of the F2 gene [RefSeq [id number];GRCh38/hg38] by multiplex polymerase chain reaction (PCR) followed by melting curve analysis. Limitations: This assay is designed to detect the c.*97G>A (17013Y>A) variant in the F2 gene. Uncommon variants or single nucleotide polymorphisms may affect binding of probes and may rarely result in false negative, false positive or indeterminate results. This assay does not detect other disease-associated rare variants in F2 or other causes of thromboembolic disease. Disclaimer: This test was developed and its performance characteristics determined by [facility] [place] ([facility] It has not been cleared or approved by the FDA. -[facility] is regulated under CLIA as certified to perform high- complexity testing. This test is used for clinical purposes. It should not be regarded as investigational or for research. References: 1) Inheritied Thrombophilias in . ACOG Practice Bulletin. No. 197. [place] [employer]. Obsete Gynecol 2018;132:e18-34. 2) Karleet SR, Vlad FR, Lia PH, and Brunilda BERNSTEIN. A common genetic variation in the 3'-untranslated region of the prothrombin gene is associated with elevated plasma prothrombin levels and an increase in venous thrombosis. Blood 88:3698-703, 1995. 3) Sandra I, Maritza V, Laurie C, Haydee K. Prothrombin 52717L>T: 16 new cases, association with the 51782M>G polymorphism, and literature review. J Thromb Haemost. 2009;9:1585-7. As reviewed by Ashu Rendon, PhD, HCLD Performed By: [facility] [address] [place] [address] Foaming Machine Operator: Vicki Calabrese III#: [id number] Phone#: Performed By: #### M G, LIPID, ADIFF, ANEU, GFR, CMP, CBC, PHOS #### [address] [address] APCVon 01-04-2021 APC Factor V Resistance 3.4 ratio Normal [facility] ([place]) Comment on above: Result Comment: APC Factor V Resistance Reference Range: <= 2.3 Positive > 2.3 Negative This APCV result demonstrates no Resistance to Activated Protein C. Performed By: #### M G, LIPID, ADIFF, ANEU, GFR, CMP, CBC, PHOS #### [address] [address] AT3on 01-04-2021 Anti-Thrombin III 118 % Normal 84-126 [facility] ([place]) Comment on above: Performed By: #### M G, LIPID, ADIFF, ANEU, GFR, CMP, CBC, PHOS #### [place] [address] [place] [address] PROTCon 01-04-2021 Protein C >150 Normal >=80 [facility] ([place]) Comment on above: Performed By: #### M G, LIPID, ADIFF, ANEU, GFR, CMP, CBC, PHOS #### [facility] [address] [place] [address] PRSFAon 01-04-2021 Protein S Free Antigen 69 % Normal 55-124 [facility] ([place]) Comment on above: Result Comment: Prot ein S Type II deficiency (very rare) is not detected by this assay. (Pathophysiology of Haemostasis and Thrombosis 04: 33:202-205 and Thrombosis Haemostasis 2000; 84:918) Performed By: #### M G, LIPID, ADIFF, ANEU, GFR, CMP, CBC, PHOS #### [place] [address] [place] [address] Progress Noteon 01-03-2021 [employer] Authentication Interface Message Text DR. WOODS OFFICE NOTE DOS: 01/03/2021 [facility] MATERNAL MEDICINE - at [place] Chief Complaint She presents for review of progress in thus far and for comprehensive review of her maternal obstetric risks in this . The reasons for the visit are as highlighted in the concluding summary communication to director of supply chain which is my problem-based office review. History of Present Illness Raymond is a 20 y.o. female at 22w5d. She denies history of for fever, chills, breathing difficulties, chest pain, or abdominal pain. The patient feels well. No history of vaginal bleeding or leakage of fluid vaginally. Obstetric History OB History Para Term AB Living 2 1 1 1 SAB TAB Ectopic Multiple Live Births 1 # Outcome Date GA Lbr Hai/2nd Weight Sex Delivery Anes PTL Lv 2 Current 1 Term 2017 40w5d 2.977 kg F Vag-Spont ALLY Comments: SGA, 6th percentile Complications: SGA (small for gestational age) - I reviewed it at patient encounter and pertinent aspects are integrated into the below problem list-based assessment Past Medical History Past Medical History: Diagnosis Date Anxiety Depression Obesity - I reviewed it at patient encounter and pertinent aspects are integrated into the below problem list-based assessment Social History - I reviewed it at patient encounter and pertinent aspects are integrated into the below problem list-based assessment Family History - I reviewed it at patient encounter, including screening genetic pedigree as available, and pertinent aspects are integrated into the below problem list-based assessment Medications and Allergies . Allergies Allergen Reactions Amoxicillin Rash Reglan [Metoclopramide] Anxiety - I reviewed it at patient encounter and are integrated into the below problem list-based assessment. Allergies were reviewed Laboratory Studies and Imaging studies - I reviewed it at patient encounter and pertinent aspects are integrated into assessments. Vitals BP 106/64 (BP Site: Left Arm, Patient Position: Sitting, BP Cuff Size: Adult) Pulse 80 Temp 36.7 C (98.1 F) Ht (!) 154.9 cm Wt 83.9 kg (185 lb) SpO2 98% BMI 34.96 kg/m - heart rate as per imaging report today, as applicable and available. ASSESSMENT AND PLAN After integrating maternal and obstetric and considerations, my recommendations are as assembled. Active Non-Hospital Problems Diagnosis Date Noted Care plan discussed with patient 01/03/2021 01/03/2021 - Office Visit - MD Abad: She is 22w5d today. CARE PLAN - reviewed and updated as below: [1]. Medications: To continue with daily Vitamins and she will start daily low dose Aspirin 81 mg to reduce risk for preeclampsia given BMI of 34. Laboratory Assays: She decides against NIPT or any genetic testing. We have arranged for congenital thrombophilia work-up in her given family history of DVT in the first degree relative at a young age. [2]. Care Plan with Suleiman MIRELES: We have scheduled her for follow-up imaging with us at 28 weeks, 32 weeks, and 36 weeks to trend the abnormal ultrasound findings as well as assess growth. [3]. Care Plan with her Dianetic Counselor: At this stage, standard office obstetric care [4]. Delivery and plus Pediatric Care: As per standard obstetric considerations and practices. [5]. Patient Collaboration and Education: We reviewed the above individual assessments. She illustrated understanding of the information and the related concepts. She asked appropriate questions and we together established the care plan. Her [id number] was also present and engaged. Abnormal ultrasonic finding on screening of mother 01/03/2021 01/03/2021 - Office Visit - MD Abad: She is 22w5d today. 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 The condition is surgically correctable with excellent results and associated risk for aneuploidy is in the range of 4-5%. Genetic evaluation options were reviewed with her. The pedigree is noncontributory for anomalies. Finding of DOLICHOCEPHALY with normal neurosonogram and open fontanelles appears to be a benign finding for this fetus but he deserves trending and subsequent imaging studies. Hereditary disease in family possibly affecting fetus, affecting management of mother, antepartum condition or complication 01/03/2021 01/03/2021 - Office Visit - MD Abad: She is 22w5d today. Abnormal genetic pedigree: Her father is less than 50 years of age and has had multiple DVTs and thus thrombophilia work-up is indicated. Additionally she has of his sickle cell trait and the status is unknown and they have decided for genetic evaluation inlieu of genetic evaluations- see Care Plan Previous baby was small (more content not included)... Normal [facility] [employer] Authentication Interface Message Text In Nexsan Normal [facility] ED Provider Progress Noteon 12-24-2020 [employer] Authentication Interface Message Text Chief Complaint Patient presents with Other concern HPI 20 year old F who is approximately 22 weeks presents due to a concern of low amniotic fluid. Patient was seen by an MFM OB today at [place] and received a call that there was low amniotic fluid and to go to [facility] for further management. Patient [facility] at [facility] instead. Patient currently has no complaints. Takes Zofran daily and took it today as prescribed. No other concerns. BP 107/66 Pulse 89 Temp 36.3 C (97.3 F) Resp 20 Wt 83.9 kg Physical exam: General alert, well appearing, no acute distress, Cardiovascular RRR, no murmur and Abdomen Soft, nontender, gravid abdomen After medical screening exam was performed it was determined that the patient has an emergency medical condition and will go to [facility] for further transport with transport by her mother to [facility]. Brooke Hale MD Normal [facility] ED Triage Noteon 12-24-2020 ED Triage Note HNO ID: [id number] Author: Mariama Nieves PA-C Service: Emergency Medicine Author Type: Physician Beverage Server Type: ED Triage Notes Filed: 12/24/2020 6:39 PM Note Text: ED INTAKE NOTE Patient Name: Raymond Brownlee Service Date: 12/24/20 BRIEF HPI: Raymond Brownlee is a 20 year old FEMALE presenting to the ED c/o low amniotic fluid. 22 weeks . Had anatomy scan last week and was told today at her appointment that amniotic fluid level is low. -abdominal pain. -vaginal bleeding/discharge. States has had issues with fluid leaking for weeks that she was told was not amniotic fluid. Referred to somewhere in [place] but states she can't get in for 2 weeks. BRIEF EXAM: Constitutional: Well-developed, well-nourished, NAD. HEENT: Normocephalic, atraumatic. Respiratory: No respiratory distress. Cardiac: RRR. Musculoskeltal: BOUCHER x4. Patient ambulating in triage without difficulty. Neuro: AANDOx3. Skin: Warm and dry. INTAKE WORKUP: Deferred- discussed with OB triage attending, patient taken via wheelchair to OB triage by communications tech. SIGNATURE: Mariama Nieves PA-C Normal [facility] GC/CHLAMYDIA DNA DETon 12-24 C. trachomatis DNA LANNY+probe Ql (Unsp spec) Negative Normal Negative for Chlamydia trachomatis by amplificaton [facility] Comment on above: Order Comment: Speci men Type: SPECIMEN FROM GENITAL SYSTEM Performed By: #### G CCT #### [facility] CLIA [id number] [address] [place] [address] N. gonorrhoeae DNA LANNY+probe Ql (Unsp spec) Negative Normal Negative for Neisseria gonorrhoeae by amplification [facility] Comment on above: Order Comment: Speci men Type: SPECIMEN FROM GENITAL SYSTEM Performed By: #### G CCT #### [facility] CLIA [id number] [address] [place] [address] RAPID BACT VAGINOSIS (AK)on 12-24-2020 Bacterial sialidase Ql (Unsp spec) Negative Normal Negative for the presence of bacterial vaginosis. [facility] Comment on above: Order Comment: Speci men Type: MICROBIAL ISOLATE Performed By: #### R APBVAG #### [facility] CLIA [id number] 1 [place] [address] T vaginalis Ag Genital Ql IA on 12-24-2020 T. vaginalis Ag IA Ql (Genital specimen) TRICHOMONAS PREP RESULT: Negative for Trichomonas vaginalis antigen Normal [facility] Comment on above: Performed By: #### 6 566-4 #### [facility] CLIA [id number] 1 [place] [address] .Auto Diffon 11-21-2020 Basophil, Absolute 0.00 10 3/mcL Normal 0.00-0.27 [facility] ([place]) Comment on above: Performed By: #### M G, LIPID, ADIFF, ANEU, GFR, CMP, CBC, PHOS #### [address] [address] Basophils/100 WBC (Bld) 0.5 % Normal 0.0-2.5 [facility] ([place]) Comment on above: Performed By: #### M G, LIPID, ADIFF, ANEU, GFR, CMP, CBC, PHOS #### [address] [address] Eosinophil, Absolute 0.00 10 3/mcL Normal 0.00-0.65 A [facility] ([place]) Comment on above: Performed By: #### M G, LIPID, ADIFF, ANEU, GFR, CMP, CBC, PHOS #### [address] [address] Eosinophils/100 WBC (Bld) 0.7 % Normal 0.0-6.0 [facility] ([place]) Comment on above: Performed By: #### M G, LIPID, ADIFF, ANEU, GFR, CMP, CBC, PHOS #### [address] [address] Lymphocyte, Absolute 2.10 10 3/mcL Normal 0.90-4.32 A [facility] ([place]) Comment on above: Performed By: #### M G, LIPID, ADIFF, ANEU, GFR, CMP, CBC, PHOS #### [address] [address] Lymphocytes/100 WBC (Bld) 34.1 % Normal 20.0-40.0 [facility] ([place]) Comment on above: Performed By: #### M G, LIPID, ADIFF, ANEU, GFR, CMP, CBC, PHOS #### [address] [address] Monocyte, Absolute 0.50 10 3/mcL Normal 0.09-1.40 [facility] ([place]) Comment on above: Performed By: #### M G, LIPID, ADIFF, ANEU, GFR, CMP, CBC, PHOS #### [address] [address] Monocytes/100 WBC (Bld) 8.1 % Normal 2.0-13.0 [facility] ([place]) Comment on above: Performed By: #### M G, LIPID, ADIFF, ANEU, GFR, CMP, CBC, PHOS #### [address] [address] Neutrophils/100 WBC (Bld) 56.6 % Normal 50.0-75.0 [facility] ([place]) Comment on above: Performed By: #### M G, LIPID, ADIFF, ANEU, GFR, CMP, CBC, PHOS #### [address] [address] .GFRon 11-21-2020 GFR Non- >60 Normal [facility] ([place]) Comment on above: Result Comment: GFR Population mean for , Non- Americans Ages 20-29 = 116 mL/min/1.73 sq.m. Ages 30-39 = 107 mL/min/1.73 sq.m. Ages 40-49 = 99 mL/min/1.73 sq.m. Ages 50-59 = 93 mL/min/1.73 sq.m. Ages 60-69 = 85 mL/min/1.73 sq.m. Ages 70+ = 75 mL/min/1.73 sq.m. Chronic Kidney Disease: Less than 60 mL/min/1.73 square meters End Stage Renal Disease: Less than 15 mL/min/1.73 square meters Performed By: #### M G, LIPID, ADIFF, ANEU, GFR, CMP, CBC, PHOS #### [address] [address] GFR >60 Normal [facility] ([place]) Comment on above: Result Comment: GFR Population mean for , Non- Americans Ages 20-29 = 116 mL/min/1.73 sq.m. Ages 30-39 = 107 mL/min/1.73 sq.m. Ages 40-49 = 99 mL/min/1.73 sq.m. Ages 50-59 = 93 mL/min/1.73 sq.m. Ages 60-69 = 85 mL/min/1.73 sq.m. Ages 70+ = 75 mL/min/1.73 sq.m. Chronic Kidney Disease: Less than 60 mL/min/1.73 square meters End Stage Renal Disease: Less than 15 mL/min/1.73 square meters Performed By: #### M G, LIPID, ADIFF, ANEU, GFR, CMP, CBC, PHOS #### [address] [address] .NEUABSon 11-21-2020 Neutrophil, Absolute 3.50 10 3/mcL Normal 2.25-8.10 A [facility] ([place]) Comment on above: Performed By: #### M G, LIPID, ADIFF, ANEU, GFR, CMP, CBC, PHOS #### [address] [address] CBCon 11-21-2020 Erythrocyte distribution width (RBC) [Ratio] 14.0 % Normal 11.5-15.5 [facility] ([place]) Comment on above: Performed By: #### M G, LIPID, ADIFF, ANEU, GFR, CMP, CBC, PHOS #### [address] [address] Hematocrit (Bld) [Volume fraction] 33.0 % Low 34.0-46.0 [facility] ([place]) Comment on above: Performed By: #### M G, LIPID, ADIFF, ANEU, GFR, CMP, CBC, PHOS #### [place] [address] Hgb 11.2 G/dL Low 12.0-16.0 [facility] ([place]) Comment on above: Performed By: #### M G, LIPID, ADIFF, ANEU, GFR, CMP, CBC, PHOS #### [place] [address] MCH (RBC) [Entitic mass] 29.5 pg Normal 27.0-33.0 [facility] ([place]) Comment on above: Performed By: #### M G, LIPID, ADIFF, ANEU, GFR, CMP, CBC, PHOS #### [place] [address] MCHC 33.9 G/dL Normal 32.0-36.0 [facility] ([place]) Comment on above: Performed By: #### M G, LIPID, ADIFF, ANEU, GFR, CMP, CBC, PHOS #### [place] [address] MCV (RBC) [Entitic vol] 86.9 fL Normal 80.0-99.0 [facility] ([place]) Comment on above: Performed By: #### M G, LIPID, ADIFF, ANEU, GFR, CMP, CBC, PHOS #### [place] [address] Platelet 132 10 3/mcL Low 150-450 [facility] ([place]) Comment on above: Performed By: #### M G, LIPID, ADIFF, ANEU, GFR, CMP, CBC, PHOS #### [place] [address] Platelet mean volume (Bld) [Entitic vol] 11.4 fL High 6.6-10.5 [facility] ([place]) Comment on above: Performed By: #### M G, LIPID, ADIFF, ANEU, GFR, CMP, CBC, PHOS #### [place] [address] RBC 3.80 10 6/mcL Low 4.10-5.30 [facility] ([place]) Comment on above: Performed By: #### M G, LIPID, ADIFF, ANEU, GFR, CMP, CBC, PHOS #### [address] [address] WBC 6.10 10 3/mcL Normal 4.50-10.80 [facility] ([place]) Comment on above: Performed By: #### M G, LIPID, ADIFF, ANEU, GFR, CMP, CBC, PHOS #### [address] [address] CMPon 11-21-2020 Albumin Level 2.3 G/dL Low 3.2-4.8 [facility] ([place]) Comment on above: Performed By: #### M G, LIPID, ADIFF, ANEU, GFR, CMP, CBC, PHOS #### [place] [address] Albumin/Globulin [Mass ratio] 1.1 {ratio} Normal 0.9-1.6 [facility] ([place]) Comment on above: Performed By: #### M G, LIPID, ADIFF, ANEU, GFR, CMP, CBC, PHOS #### [address] [address] ALP [Catalytic activity/Vol] 51 U/L Normal 33-118 [facility] ([place]) Comment on above: Performed By: #### M G, LIPID, ADIFF, ANEU, GFR, CMP, CBC, PHOS #### [address] [address] ALT [Catalytic activity/Vol] 193 U/L High 10-49 [facility] ([place]) Comment on above: Performed By: #### M G, LIPID, ADIFF, ANEU, GFR, CMP, CBC, PHOS #### [address] [address] AST [Catalytic activity/Vol] 70 U/L High 8-34 [facility] ([place]) Comment on above: Performed By: #### M G, LIPID, ADIFF, ANEU, GFR, CMP, CBC, PHOS #### [place] [id number] Bili Total 0.90 mg/dL Normal 0.20-1.20 [facility] ([place]) Comment on above: Result Comment: Use of this assay is not recommended for patients undergoing treatment with eltrombopag due to the potential for falsely elevated results. Performed By: #### M G, LIPID, ADIFF, ANEU, GFR, CMP, CBC, PHOS #### [address] [address] Calcium [Mass/Vol] 8.6 mg/dL Low 8.7-10.4 [facility] ([place]) Comment on above: Result Comment: No te - New Reference Range in effect 20 Performed By: #### M G, LIPID, ADIFF, ANEU, GFR, CMP, CBC, PHOS #### [place] [address] Chloride [Moles/Vol] 110 mmol/L Normal 98-110 [facility] ([place]) Comment on above: Performed By: #### M G, LIPID, ADIFF, ANEU, GFR, CMP, CBC, PHOS #### [place] [id number] CO2 [Moles/Vol] 30 mmol/L Normal 22-32 [facility] ([place]) Comment on above: Performed By: #### M G, LIPID, ADIFF, ANEU, GFR, CMP, CBC, PHOS #### [address] [address] Creatinine [Mass/Vol] 0.50 mg/dL Normal 0.50-1.20 [facility] ([place]) Comment on above: Performed By: #### M G, LIPID, ADIFF, ANEU, GFR, CMP, CBC, PHOS #### [address] [address] Electrolyte Balance 2.0 mEq/L Low 4.0-15.0 Count includes the [facility] ([place]) Comment on above: Performed By: #### M G, LIPID, ADIFF, ANEU, GFR, CMP, CBC, PHOS #### [address] [address] Globulin 2.1 G/dL Normal 1.5-3.8 [facility] ([place]) Comment on above: Performed By: #### M G, LIPID, ADIFF, ANEU, GFR, CMP, CBC, PHOS #### [address] [address] Glucose [Mass/Vol] 78 mg/dL Normal 70-110 [facility] ([place]) Comment on above: Performed By: #### M G, LIPID, ADIFF, ANEU, GFR, CMP, CBC, PHOS #### [address] [address] Potassium [Moles/Vol] 3.2 mmol/L Low 3.5-5.0 [facility] ([place]) Comment on above: Performed By: #### M G, LIPID, ADIFF, ANEU, GFR, CMP, CBC, PHOS #### [address] [address] Sodium [Moles/Vol] 142 mmol/L Normal 136-145 [facility] ([place]) Comment on above: Performed By: #### M G, LIPID, ADIFF, ANEU, GFR, CMP, CBC, PHOS #### [address] [address] Total Protein 4.4 G/dL Low 5.7-8.2 [facility] ([place]) Comment on above: Result Comment: No te - New Reference Range in effect 20 Performed By: #### M G, LIPID, ADIFF, ANEU, GFR, CMP, CBC, PHOS #### [address] [address] Urea nitrogen [Mass/Vol] mg/dL Low 8.0-22.0 [facility] ([place]) Comment on above: Performed By: #### M G, LIPID, ADIFF, ANEU, GFR, CMP, CBC, PHOS #### [address] [address] Urea nitrogen/Creatinine [Mass ratio] mg/mg Normal 10.0-22.0 [facility] ([place]) Comment on above: Performed By: #### M G, LIPID, ADIFF, ANEU, GFR, CMP, CBC, PHOS #### [address] [address] MGon 11-21-2020 Magnesium [Mass/Vol] 1.6 mg/dL Normal 1.6-2.4 [facility] ([place]) Comment on above: Performed By: #### M G, LIPID, ADIFF, ANEU, GFR, CMP, CBC, PHOS #### [address] [address] PHOSon 11-21-2020 Phosphate [Mass/Vol] 2.8 mg/dL Normal 2.4-5.1 [facility] ([place]) Comment on above: Result Comment: No te - New Reference Range in effect 20 Performed By: #### M G, LIPID, ADIFF, ANEU, GFR, CMP, CBC, PHOS #### [address] [address] .Auto Diffon 11-20-2020 Basophil, Absolute 0.00 10 3/mcL Normal 0.00-0.27 [facility] ([place]) Comment on above: Performed By: #### M G, LIPID, ADIFF, ANEU, GFR, CMP, CBC, PHOS #### [address] [address] Basophils/100 WBC (Bld) 0.4 % Normal 0.0-2.5 [facility] ([place]) Comment on above: Performed By: #### M G, LIPID, ADIFF, ANEU, GFR, CMP, CBC, PHOS #### [address] [address] Eosinophil, Absolute 0.10 10 3/mcL Normal 0.00-0.65 [facility] ([place]) Comment on above: Performed By: #### M G, LIPID, ADIFF, ANEU, GFR, CMP, CBC, PHOS #### [address] [address] Eosinophils/100 WBC (Bld) 1.1 % Normal 0.0-6.0 [facility] ([place]) Comment on above: Performed By: #### M G, LIPID, ADIFF, ANEU, GFR, CMP, CBC, PHOS #### [address] [address] Lymphocyte, Absolute 2.20 10 3/mcL Normal 0.90-4.32 A [facility] ([place]) Comment on above: Performed By: #### M G, LIPID, ADIFF, ANEU, GFR, CMP, CBC, PHOS #### [address] [address] Lymphocytes/100 WBC (Bld) 35.0 % Normal 20.0-40.0 [facility] ([place]) Comment on above: Performed By: #### M G, LIPID, ADIFF, ANEU, GFR, CMP, CBC, PHOS #### [address] [address] Monocyte, Absolute 0.50 10 3/mcL Normal 0.09-1.40 [facility] ([place]) Comment on above: Performed By: #### M G, LIPID, ADIFF, ANEU, GFR, CMP, CBC, PHOS #### [address] [address] Monocytes/100 WBC (Bld) 8.5 % Normal 2.0-13.0 [facility] ([place]) Comment on above: Performed By: #### M G, LIPID, ADIFF, ANEU, GFR, CMP, CBC, PHOS #### [address] [address] Neutrophils/100 WBC (Bld) 55.0 % Normal 50.0-75.0 [facility] ([place]) Comment on above: Performed By: #### M G, LIPID, ADIFF, ANEU, GFR, CMP, CBC, PHOS #### [address] [address] .GFRon 11-20-2020 GFR >60 Normal [facility] ([place]) Comment on above: Result Comment: GFR Population mean for , Non- Americans Ages 20-29 = 116 mL/min/1.73 sq.m. Ages 30-39 = 107 mL/min/1.73 sq.m. Ages 40-49 = 99 mL/min/1.73 sq.m. Ages 50-59 = 93 mL/min/1.73 sq.m. Ages 60-69 = 85 mL/min/1.73 sq.m. Ages 70+ = 75 mL/min/1.73 sq.m. Chronic Kidney Disease: Less than 60 mL/min/1.73 square meters End Stage Renal Disease: Less than 15 mL/min/1.73 square meters Performed By: #### M G, LIPID, ADIFF, ANEU, GFR, CMP, CBC, PHOS #### [address] [address] GFR Non- >60 Normal [facility] ([place]) Comment on above: Result Comment: GFR Population mean for , Non- Americans Ages 20-29 = 116 mL/min/1.73 sq.m. Ages 30-39 = 107 mL/min/1.73 sq.m. Ages 40-49 = 99 mL/min/1.73 sq.m. Ages 50-59 = 93 mL/min/1.73 sq.m. Ages 60-69 = 85 mL/min/1.73 sq.m. Ages 70+ = 75 mL/min/1.73 sq.m. Chronic Kidney Disease: Less than 60 mL/min/1.73 square meters End Stage Renal Disease: Less than 15 mL/min/1.73 square meters Performed By: #### M G, LIPID, ADIFF, ANEU, GFR, CMP, CBC, PHOS #### [address] [address] .NEUABSon 11-20-2020 Neutrophil, Absolute 3.50 10 3/mcL Normal 2.25-8.10 A [facility] ([place]) Comment on above: Performed By: #### M G, LIPID, ADIFF, ANEU, GFR, CMP, CBC, PHOS #### [address] [address] CBCon 11-20-2020 Erythrocyte distribution width (RBC) [Ratio] 13.9 % Normal 11.5-15.5 [facility] ([place]) Comment on above: Performed By: #### M G, LIPID, ADIFF, ANEU, GFR, CMP, CBC, PHOS #### [address] [address] Hematocrit (Bld) [Volume fraction] 31.9 % Low 34.0-46.0 [facility] ([place]) Comment on above: Performed By: #### M G, LIPID, ADIFF, ANEU, GFR, CMP, CBC, PHOS #### [place] [id number] Hgb 11.1 G/dL Low 12.0-16.0 [facility] ([place]) Comment on above: Performed By: #### M G, LIPID, ADIFF, ANEU, GFR, CMP, CBC, PHOS #### [place] [address] MCH (RBC) [Entitic mass] 30.1 pg Normal 27.0-33.0 [facility] ([place]) Comment on above: Performed By: #### M G, LIPID, ADIFF, ANEU, GFR, CMP, CBC, PHOS #### [place] [address] MCHC 34.9 G/dL Normal 32.0-36.0 [facility] ([place]) Comment on above: Performed By: #### M G, LIPID, ADIFF, ANEU, GFR, CMP, CBC, PHOS #### [place] [address] MCV (RBC) [Entitic vol] 86.3 fL Normal 80.0-99.0 [facility] ([place]) Comment on above: Performed By: #### M G, LIPID, ADIFF, ANEU, GFR, CMP, CBC, PHOS #### [place] [id number] Platelet 138 10 3/mcL Low 150-450 [facility] ([place]) Comment on above: Performed By: #### M G, LIPID, ADIFF, ANEU, GFR, CMP, CBC, PHOS #### [place] [address] Platelet mean volume (Bld) [Entitic vol] 11.4 fL High 6.6-10.5 [facility] ([place]) Comment on above: Performed By: #### M G, LIPID, ADIFF, ANEU, GFR, CMP, CBC, PHOS #### [address] [address] RBC 3.70 10 6/mcL Low 4.10-5.30 [facility] ([place]) Comment on above: Performed By: #### M G, LIPID, ADIFF, ANEU, GFR, CMP, CBC, PHOS #### [address] [address] WBC 6.40 10 3/mcL Normal 4.50-10.80 [facility] ([place]) Comment on above: Performed By: #### M G, LIPID, ADIFF, ANEU, GFR, CMP, CBC, PHOS #### [place] [address] CMPon 11-20-2020 Albumin Level 2.3 G/dL Low 3.2-4.8 [facility] ([place]) Comment on above: Performed By: #### M G, LIPID, ADIFF, ANEU, GFR, CMP, CBC, PHOS #### [place] [address] Albumin/Globulin [Mass ratio] 1.2 {ratio} Normal 0.9-1.6 [facility] ([place]) Comment on above: Performed By: #### M G, LIPID, ADIFF, ANEU, GFR, CMP, CBC, PHOS #### [place] [id number] ALP [Catalytic activity/Vol] 51 U/L Normal 33-118 [facility] ([place]) Comment on above: Performed By: #### M G, LIPID, ADIFF, ANEU, GFR, CMP, CBC, PHOS #### [place] [id number] ALT [Catalytic activity/Vol] 204 U/L High 10-49 [facility] ([place]) Comment on above: Performed By: #### M G, LIPID, ADIFF, ANEU, GFR, CMP, CBC, PHOS #### [address] [address] AST [Catalytic activity/Vol] 71 U/L High 8-34 [facility] ([place]) Comment on above: Performed By: #### M G, LIPID, ADIFF, ANEU, GFR, CMP, CBC, PHOS #### [address] [address] Bili Total 1.20 mg/dL Normal 0.20-1.20 [facility] ([place]) Comment on above: Result Comment: Use of this assay is not recommended for patients undergoing treatment with eltrombopag due to the potential for falsely elevated results. Performed By: #### M G, LIPID, ADIFF, ANEU, GFR, CMP, CBC, PHOS #### [place] [id number] Calcium [Mass/Vol] 8.3 mg/dL Low 8.7-10.4 [facility] ([place]) Comment on above: Result Comment: No te - New Reference Range in effect 20 Performed By: #### M G, LIPID, ADIFF, ANEU, GFR, CMP, CBC, PHOS #### [place] [phone] Chloride [Moles/Vol] 111 mmol/L High 98-110 [facility] ([place]) Comment on above: Performed By: #### M G, LIPID, ADIFF, ANEU, GFR, CMP, CBC, PHOS #### [place] [phone] CO2 [Moles/Vol] 27 mmol/L Normal 22-32 [facility] ([place]) Comment on above: Performed By: #### M G, LIPID, ADIFF, ANEU, GFR, CMP, CBC, PHOS #### [place] [phone] Creatinine [Mass/Vol] 0.51 mg/dL Normal 0.50-1.20 [facility] ([place]) Comment on above: Performed By: #### M G, LIPID, ADIFF, ANEU, GFR, CMP, CBC, PHOS #### [address] [address] Electrolyte Balance 4.0 mEq/L Normal 4.0-15.0 Count includes the [facility] ([place]) Comment on above: Performed By: #### M G, LIPID, ADIFF, ANEU, GFR, CMP, CBC, PHOS #### [address] [address] Globulin 2.0 G/dL Normal 1.5-3.8 [facility] ([place]) Comment on above: Performed By: #### M G, LIPID, ADIFF, ANEU, GFR, CMP, CBC, PHOS #### [address] [address] Glucose [Mass/Vol] 71 mg/dL Normal 70-110 [facility] ([place]) Comment on above: Performed By: #### M G, LIPID, ADIFF, ANEU, GFR, CMP, CBC, PHOS #### [address] [address] Potassium [Moles/Vol] 3.0 mmol/L Low 3.5-5.0 [facility] ([place]) Comment on above: Performed By: #### M G, LIPID, ADIFF, ANEU, GFR, CMP, CBC, PHOS #### [address] [address] Sodium [Moles/Vol] 142 mmol/L Normal 136-145 [facility] ([place]) Comment on above: Performed By: #### M G, LIPID, ADIFF, ANEU, GFR, CMP, CBC, PHOS #### [address] [address] Total Protein 4.3 G/dL Low 5.7-8.2 [facility] ([place]) Comment on above: Result Comment: No te - New Reference Range in effect 20 Performed By: #### M G, LIPID, ADIFF, ANEU, GFR, CMP, CBC, PHOS #### [address] [address] Urea nitrogen [Mass/Vol] mg/dL Low 8.0-22.0 [facility] ([place]) Comment on above: Performed By: #### M G, LIPID, ADIFF, ANEU, GFR, CMP, CBC, PHOS #### [address] [address] Urea nitrogen/Creatinine [Mass ratio] mg/mg Low 10.0-22.0 [facility] ([place]) Comment on above: Performed By: #### M G, LIPID, ADIFF, ANEU, GFR, CMP, CBC, PHOS #### [place] [address] Saleem 11-20-2020 Potassium [Moles/Vol] 3.7 mmol/L Normal 3.5-5.0 [facility] ([place]) Comment on above: Result Comment: Spec imen slightly hemolyzed. Performed By: #### M G, LIPID, ADIFF, ANEU, GFR, CMP, CBC, PHOS #### [place] [address] LIPon 11-20-2020 Lipase Level 74 U/L High 12-53 [facility] ([place]) Comment on above: Result Comment: No te - New Reference Range in effect 20 Performed By: #### M G, LIPID, ADIFF, ANEU, GFR, CMP, CBC, PHOS #### [place] [address] MGon 11-20-2020 Magnesium [Mass/Vol] 1.8 mg/dL Normal 1.6-2.4 [facility] ([place]) Comment on above: Performed By: #### M G, LIPID, ADIFF, ANEU, GFR, CMP, CBC, PHOS #### [place] [address] PHOSon 11-20-2020 Phosphate [Mass/Vol] 2.7 mg/dL Normal 2.4-5.1 [facility] ([place]) Comment on above: Result Comment: No te - New Reference Range in effect 20 Performed By: #### M G, LIPID, ADIFF, ANEU, GFR, CMP, CBC, PHOS #### [place] [address] .Auto Diffon 11-19-2020 Basophil, Absolute 0.00 10 3/mcL Normal 0.00-0.27 [facility] ([place]) Comment on above: Performed By: #### M G, LIPID, ADIFF, ANEU, GFR, CMP, CBC, PHOS #### [address] [address] Basophils/100 WBC (Bld) 0.4 % Normal 0.0-2.5 [facility] ([place]) Comment on above: Performed By: #### M G, LIPID, ADIFF, ANEU, GFR, CMP, CBC, PHOS #### [address] [address] Eosinophil, Absolute 0.00 10 3/mcL Normal 0.00-0.65 A [facility] ([place]) Comment on above: Performed By: #### M G, LIPID, ADIFF, ANEU, GFR, CMP, CBC, PHOS #### [address] [address] Eosinophils/100 WBC (Bld) 0.4 % Normal 0.0-6.0 [facility] ([place]) Comment on above: Performed By: #### M G, LIPID, ADIFF, ANEU, GFR, CMP, CBC, PHOS #### [address] [address] Lymphocyte, Absolute 1.70 10 3/mcL Normal 0.90-4.32 A [facility] ([place]) Comment on above: Performed By: #### M G, LIPID, ADIFF, ANEU, GFR, CMP, CBC, PHOS #### [address] [address] Lymphocytes/100 WBC (Bld) 21.4 % Normal 20.0-40.0 [facility] ([place]) Comment on above: Performed By: #### M G, LIPID, ADIFF, ANEU, GFR, CMP, CBC, PHOS #### [address] [address] Monocyte, Absolute 0.80 10 3/mcL Normal 0.09-1.40 [facility] ([place]) Comment on above: Performed By: #### M G, LIPID, ADIFF, ANEU, GFR, CMP, CBC, PHOS #### [address] [address] Monocytes/100 WBC (Bld) 9.9 % Normal 2.0-13.0 [facility] ([place]) Comment on above: Performed By: #### M G, LIPID, ADIFF, ANEU, GFR, CMP, CBC, PHOS #### [address] [address] Neutrophils/100 WBC (Bld) 67.9 % Normal 50.0-75.0 [facility] ([place]) Comment on above: Performed By: #### M G, LIPID, ADIFF, ANEU, GFR, CMP, CBC, PHOS #### [address] [address] .GFRon 11-19-2020 GFR >60 Normal [facility] ([place]) Comment on above: Result Comment: GFR Population mean for , Non- Americans Ages 20-29 = 116 mL/min/1.73 sq.m. Ages 30-39 = 107 mL/min/1.73 sq.m. Ages 40-49 = 99 mL/min/1.73 sq.m. Ages 50-59 = 93 mL/min/1.73 sq.m. Ages 60-69 = 85 mL/min/1.73 sq.m. Ages 70+ = 75 mL/min/1.73 sq.m. Chronic Kidney Disease: Less than 60 mL/min/1.73 square meters End Stage Renal Disease: Less than 15 mL/min/1.73 square meters Performed By: #### M G, LIPID, ADIFF, ANEU, GFR, CMP, CBC, PHOS #### [address] [address] GFR Non- >60 Normal [facility] ([place]) Comment on above: Result Comment: GFR Population mean for , Non- Americans Ages 20-29 = 116 mL/min/1.73 sq.m. Ages 30-39 = 107 mL/min/1.73 sq.m. Ages 40-49 = 99 mL/min/1.73 sq.m. Ages 50-59 = 93 mL/min/1.73 sq.m. Ages 60-69 = 85 mL/min/1.73 sq.m. Ages 70+ = 75 mL/min/1.73 sq.m. Chronic Kidney Disease: Less than 60 mL/min/1.73 square meters End Stage Renal Disease: Less than 15 mL/min/1.73 square meters Performed By: #### M G, LIPID, ADIFF, ANEU, GFR, CMP, CBC, PHOS #### [place] [address] .NEUABSon 11-19-2020 Neutrophil, Absolute 5.40 10 3/mcL Normal 2.25-8.10 A [facility] ([place]) Comment on above: Performed By: #### M G, LIPID, ADIFF, ANEU, GFR, CMP, CBC, PHOS #### [place] [address] AMYon 11-19-2020 Amylase [Catalytic activity/Vol] 76 U/L Normal 30-118 [facility] ([place]) Comment on above: Result Comment: No te - New Reference Range in effect 20 Performed By: #### G FR, CBC, BMP, ADIFF, ANEU #### [place] [id number] BILAIon 11-19-2020 Bili Indirect 0.5 mg/dL Normal 0.1-10.0 [facility] ([place]) Comment on above: Result Comment: Calc ulated by Rule Performed By: #### G FR, CBC, BMP, ADIFF, ANEU #### [place] [address] Bili Direct 0.8 mg/dL High 0.0-0.4 [facility] ([place]) Comment on above: Result Comment: Use of this assay is not recommended for patients undergoing treatment with eltrombopag due to the potential for falsely elevated results. Performed By: #### G FR, CBC, BMP, ADIFF, ANEU #### [place] [address] Bili Total 1.30 mg/dL High 0.20-1.20 [facility] ([place]) Comment on above: Result Comment: Use of this assay is not recommended for patients undergoing treatment with eltrombopag due to the potential for falsely elevated results. Performed By: #### G FR, CBC, BMP, ADIFF, ANEU #### [place] [address] CBCon 11-19-2020 Erythrocyte distribution width (RBC) [Ratio] 14.0 % Normal 11.5-15.5 [facility] ([place]) Comment on above: Performed By: #### M G, LIPID, ADIFF, ANEU, GFR, CMP, CBC, PHOS #### [place] [address] Hematocrit (Bld) [Volume fraction] 34.5 % Normal 34.0-46.0 [facility] ([place]) Comment on above: Performed By: #### M G, LIPID, ADIFF, ANEU, GFR, CMP, CBC, PHOS #### [place] [address] Hgb 11.7 G/dL Low 12.0-16.0 [facility] ([place]) Comment on above: Performed By: #### M G, LIPID, ADIFF, ANEU, GFR, CMP, CBC, PHOS #### [place] [address] MCH (RBC) [Entitic mass] 29.7 pg Normal 27.0-33.0 [facility] ([place]) Comment on above: Performed By: #### M G, LIPID, ADIFF, ANEU, GFR, CMP, CBC, PHOS #### [place] [address] MCHC 33.8 G/dL Normal 32.0-36.0 [facility] ([place]) Comment on above: Performed By: #### M G, LIPID, ADIFF, ANEU, GFR, CMP, CBC, PHOS #### [place] [address] MCV (RBC) [Entitic vol] 88.0 fL Normal 80.0-99.0 [facility] ([place]) Comment on above: Performed By: #### M G, LIPID, ADIFF, ANEU, GFR, CMP, CBC, PHOS #### [place] [address] Platelet 142 10 3/mcL Low 150-450 [facility] ([place]) Comment on above: Performed By: #### M G, LIPID, ADIFF, ANEU, GFR, CMP, CBC, PHOS #### [place] [address] Platelet mean volume (Bld) [Entitic vol] 10.7 fL High 6.6-10.5 [facility] ([place]) Comment on above: Performed By: #### M G, LIPID, ADIFF, ANEU, GFR, CMP, CBC, PHOS #### [place] [id number] RBC 3.93 10 6/mcL Low 4.10-5.30 [facility] ([place]) Comment on above: Performed By: #### M G, LIPID, ADIFF, ANEU, GFR, CMP, CBC, PHOS #### [place] [address] WBC 8.00 10 3/mcL Normal 4.50-10.80 [facility] ([place]) Comment on above: Performed By: #### M G, LIPID, ADIFF, ANEU, GFR, CMP, CBC, PHOS #### [place] [address] CMPon 11-19-2020 Albumin Level 2.5 G/dL Low 3.2-4.8 [facility] ([place]) Comment on above: Performed By: #### M G, LIPID, ADIFF, ANEU, GFR, CMP, CBC, PHOS #### [place] [address] Albumin/Globulin [Mass ratio] 1.1 {ratio} Normal 0.9-1.6 [facility] ([place]) Comment on above: Performed By: #### M G, LIPID, ADIFF, ANEU, GFR, CMP, CBC, PHOS #### [place] [id number] ALP [Catalytic activity/Vol] 55 U/L Normal 33-118 [facility] ([place]) Comment on above: Performed By: #### M G, LIPID, ADIFF, ANEU, GFR, CMP, CBC, PHOS #### [place] [id number] ALT [Catalytic activity/Vol] 250 U/L High 10-49 [facility] ([place]) Comment on above: Performed By: #### M G, LIPID, ADIFF, ANEU, GFR, CMP, CBC, PHOS #### [address] [address] AST [Catalytic activity/Vol] 96 U/L High 8-34 [facility] ([place] Comment on above: Performed By: #### M G, LIPID, ADIFF, ANEU, GFR, CMP, CBC, PHOS #### [address] [address] Bili Total 1.30 mg/dL High 0.20-1.20 [facility] ([place]) Comment on above: Result Comment: Use of this assay is not recommended for patients undergoing treatment with eltrombopag due to the potential for falsely elevated results. Performed By: #### M G, LIPID, ADIFF, ANEU, GFR, CMP, CBC, PHOS #### [address] [address] Calcium [Mass/Vol] 8.5 mg/dL Low 8.7-10.4 [facility] ([place]) Comment on above: Result Comment: No te - New Reference Range in effect 20 Performed By: #### M G, LIPID, ADIFF, ANEU, GFR, CMP, CBC, PHOS #### [address] [address] Chloride [Moles/Vol] 113 mmol/L High 98-110 [facility] ([place]) Comment on above: Performed By: #### M G, LIPID, ADIFF, ANEU, GFR, CMP, CBC, PHOS #### [address] [address] CO2 [Moles/Vol] 22 mmol/L Normal 22-32 [facility] ([place] Comment on above: Performed By: #### M G, LIPID, ADIFF, ANEU, GFR, CMP, CBC, PHOS #### [address] [address] Creatinine [Mass/Vol] 0.50 mg/dL Normal 0.50-1.20 [facility] ([place]) Comment on above: Performed By: #### M G, LIPID, ADIFF, ANEU, GFR, CMP, CBC, PHOS #### [address] [address] Electrolyte Balance 7.0 mEq/L Normal 4.0-15.0 Count includes the [facility] ([place]) Comment on above: Performed By: #### M G, LIPID, ADIFF, ANEU, GFR, CMP, CBC, PHOS #### [address] [address] Globulin 2.3 G/dL Normal 1.5-3.8 [facility] ([place] Comment on above: Performed By: #### M G, LIPID, ADIFF, ANEU, GFR, CMP, CBC, PHOS #### [address] [address] Glucose [Mass/Vol] 89 mg/dL Normal 70-110 [facility] ([place] Comment on above: Performed By: #### M G, LIPID, ADIFF, ANEU, GFR, CMP, CBC, PHOS #### [address] [address] Potassium [Moles/Vol] 3.1 mmol/L Low 3.5-5.0 [facility] ([place]) Comment on above: Performed By: #### M G, LIPID, ADIFF, ANEU, GFR, CMP, CBC, PHOS #### [address] [address] Sodium [Moles/Vol] 142 mmol/L Normal 136-145 [facility] ([place] Comment on above: Performed By: #### M G, LIPID, ADIFF, ANEU, GFR, CMP, CBC, PHOS #### [address] [address] Total Protein 4.8 G/dL Low 5.7-8.2 [facility] ([place] Comment on above: Result Comment: No te - New Reference Range in effect 20 Performed By: #### M G, LIPID, ADIFF, ANEU, GFR, CMP, CBC, PHOS #### [address] [address] Urea nitrogen [Mass/Vol] mg/dL Low 8.0-22.0 [facility] ([place] Comment on above: Performed By: #### M G, LIPID, ADIFF, ANEU, GFR, CMP, CBC, PHOS #### [address] [address] Urea nitrogen/Creatinine [Mass ratio] mg/mg Normal 10.0-22.0 [facility] ([place] Comment on above: Performed By: #### M G, LIPID, ADIFF, ANEU, GFR, CMP, CBC, PHOS #### [address] [address] LIPon 11-19-2020 Lipase Level 92 U/L High 12-53 [facility] ([place] Comment on above: Result Comment: No te - New Reference Range in effect 20 Performed By: #### M G, LIPID, ADIFF, ANEU, GFR, CMP, CBC, PHOS #### [address] [address] LIPIDon 11-19-2020 Cholesterol [Mass/Vol] 156 mg/dL Normal 50-199 [facility] ([place]) Comment on above: Result Comment: Chol esterol Reference Interval: Less than 200 Desirable 200-239 Borderline high risk 240 and above High risk Performed By: #### M G, LIPID, ADIFF, ANEU, GFR, CMP, CBC, PHOS #### [address] [address] Cholesterol in HDL [Mass/Vol] 34 mg/dL Low 40-59 [facility] ([place] Comment on above: Performed By: #### M G, LIPID, ADIFF, ANEU, GFR, CMP, CBC, PHOS #### [place] [id number] [place] [address] Cholesterol in LDL [Mass/Vol] 98 mg/dL Normal 0-129 [facility] ([place] Comment on above: Performed By: #### M G, LIPID, ADIFF, ANEU, GFR, CMP, CBC, PHOS #### [address] [address] Triglyceride [Mass/Vol] 122 mg/dL Normal 3-149 [facility] ([place] Comment on above: Performed By: #### M G, LIPID, ADIFF, ANEU, GFR, CMP, CBC, PHOS #### [address] [address] MGon 11-19-2020 Magnesium [Mass/Vol] 1.4 mg/dL Low 1.6-2.4 [facility] ([place]) Comment on above: Performed By: #### M G, LIPID, ADIFF, ANEU, GFR, CMP, CBC, PHOS #### [place] [address] PHOSon 11-19-2020 Phosphate [Mass/Vol] 2.4 mg/dL Normal 2.4-5.1 [facility] ([place]) Comment on above: Result Comment: No te - New Reference Range in effect 20 Performed By: #### M G, LIPID, ADIFF, ANEU, GFR, CMP, CBC, PHOS #### [place] [address] .Auto Diffon 11-18-2020 Basophil, Absolute 0.00 10 3/mcL Normal 0.00-0.27 [facility] ([place]) Comment on above: Performed By: #### M G, LIPID, ADIFF, ANEU, GFR, CMP, CBC, PHOS #### [address] [address] Basophils/100 WBC (Bld) 0.3 % Normal 0.0-2.5 [facility] ([place] Comment on above: Performed By: #### M G, LIPID, ADIFF, ANEU, GFR, CMP, CBC, PHOS #### [address] [address] Eosinophil, Absolute 0.00 10 3/mcL Normal 0.00-0.65 A [facility] ([place]) Comment on above: Performed By: #### M G, LIPID, ADIFF, ANEU, GFR, CMP, CBC, PHOS #### [address] [address] Eosinophils/100 WBC (Bld) 0.1 % Normal 0.0-6.0 [facility] ([place] Comment on above: Performed By: #### M G, LIPID, ADIFF, ANEU, GFR, CMP, CBC, PHOS #### [address] [address] Lymphocyte, Absolute 1.40 10 3/mcL Normal 0.90-4.32 A [facility] ([place]) Comment on above: Performed By: #### M G, LIPID, ADIFF, ANEU, GFR, CMP, CBC, PHOS #### [address] [address] Lymphocytes/100 WBC (Bld) 13.5 % Low 20.0-40.0 [facility] ([place] Comment on above: Performed By: #### M G, LIPID, ADIFF, ANEU, GFR, CMP, CBC, PHOS #### [address] [address] Monocyte, Absolute 0.90 10 3/mcL Normal 0.09-1.40 [facility] ([place]) Comment on above: Performed By: #### M G, LIPID, ADIFF, ANEU, GFR, CMP, CBC, PHOS #### [address] [address] Monocytes/100 WBC (Bld) 8.9 % Normal 2.0-13.0 [facility] ([place] Comment on above: Performed By: #### M G, LIPID, ADIFF, ANEU, GFR, CMP, CBC, PHOS #### [address] [address] Neutrophils/100 WBC (Bld) 77.2 % High 50.0-75.0 [facility] ([place]) Comment on above: Performed By: #### M G, LIPID, ADIFF, ANEU, GFR, CMP, CBC, PHOS #### [address] [address] .GFRon 11-18-2020 GFR >60 Normal [facility] ([place]) Comment on above: Result Comment: GFR Population mean for , Non- Americans Ages 20-29 = 116 mL/min/1.73 sq.m. Ages 30-39 = 107 mL/min/1.73 sq.m. Ages 40-49 = 99 mL/min/1.73 sq.m. Ages 50-59 = 93 mL/min/1.73 sq.m. Ages 60-69 = 85 mL/min/1.73 sq.m. Ages 70+ = 75 mL/min/1.73 sq.m. Chronic Kidney Disease: Less than 60 mL/min/1.73 square meters End Stage Renal Disease: Less than 15 mL/min/1.73 square meters Performed By: #### M G, LIPID, ADIFF, ANEU, GFR, CMP, CBC, PHOS #### [address] [address] GFR Non- >60 Normal [facility] ([place]) Comment on above: Result Comment: GFR Population mean for , Non- Americans Ages 20-29 = 116 mL/min/1.73 sq.m. Ages 30-39 = 107 mL/min/1.73 sq.m. Ages 40-49 = 99 mL/min/1.73 sq.m. Ages 50-59 = 93 mL/min/1.73 sq.m. Ages 60-69 = 85 mL/min/1.73 sq.m. Ages 70+ = 75 mL/min/1.73 sq.m. Chronic Kidney Disease: Less than 60 mL/min/1.73 square meters End Stage Renal Disease: Less than 15 mL/min/1.73 square meters Performed By: #### M G, LIPID, ADIFF, ANEU, GFR, CMP, CBC, PHOS #### [address] [address] .NEUABSon 11-18-2020 Neutrophil, Absolute 8.20 10 3/mcL High 2.25-8.10 A [facility] ([place]) Comment on above: Performed By: #### M G, LIPID, ADIFF, ANEU, GFR, CMP, CBC, PHOS #### [address] [address] CBCon 11-18-2020 Erythrocyte distribution width (RBC) [Ratio] 13.8 % Normal 11.5-15.5 [facility] ([place]) Comment on above: Performed By: #### M G, LIPID, ADIFF, ANEU, GFR, CMP, CBC, PHOS #### [place] [address] Hematocrit (Bld) [Volume fraction] 43.5 % Normal 34.0-46.0 [facility] ([place] Comment on above: Performed By: #### M G, LIPID, ADIFF, ANEU, GFR, CMP, CBC, PHOS #### [place] [address] Hgb 15.0 G/dL Normal 12.0-16.0 [facility] ([place] Comment on above: Performed By: #### M G, LIPID, ADIFF, ANEU, GFR, CMP, CBC, PHOS #### [place] [address] MCH (RBC) [Entitic mass] 29.4 pg Normal 27.0-33.0 [facility] ([place] Comment on above: Performed By: #### M G, LIPID, ADIFF, ANEU, GFR, CMP, CBC, PHOS #### [place] [address] MCHC 34.4 G/dL Normal 32.0-36.0 [facility] ([place] Comment on above: Performed By: #### M G, LIPID, ADIFF, ANEU, GFR, CMP, CBC, PHOS #### [place] [address] MCV (RBC) [Entitic vol] 85.5 fL Normal 80.0-99.0 [facility] ([place] Comment on above: Performed By: #### M G, LIPID, ADIFF, ANEU, GFR, CMP, CBC, PHOS #### [place] [id number] Platelet 196 10 3/mcL Normal 150-450 [facility] ([place] Comment on above: Performed By: #### M G, LIPID, ADIFF, ANEU, GFR, CMP, CBC, PHOS #### [place] [address] Platelet mean volume (Bld) [Entitic vol] 10.8 fL High 6.6-10.5 [facility] ([place] Comment on above: Performed By: #### M G, LIPID, ADIFF, ANEU, GFR, CMP, CBC, PHOS #### [address] [address] RBC 5.09 10 6/mcL Normal 4.10-5.30 [facility] ([place] Comment on above: Performed By: #### M G, LIPID, ADIFF, ANEU, GFR, CMP, CBC, PHOS #### [place] [address] WBC 10.60 10 3/mcL Normal 4.50-10.80 [facility] ([place] Comment on above: Performed By: #### M G, LIPID, ADIFF, ANEU, GFR, CMP, CBC, PHOS #### [place] [address] CMPon 11-18-2020 Albumin Level 3.6 G/dL Normal 3.2-4.8 [facility] ([place] Comment on above: Performed By: #### M G, LIPID, ADIFF, ANEU, GFR, CMP, CBC, PHOS #### [place] [address] Albumin/Globulin [Mass ratio] 0.9 {ratio} Normal 0.9-1.6 [facility] ([place] Comment on above: Performed By: #### M G, LIPID, ADIFF, ANEU, GFR, CMP, CBC, PHOS #### [place] [id number] ALP [Catalytic activity/Vol] 76 U/L Normal 33-118 [facility] ([place] Comment on above: Performed By: #### M G, LIPID, ADIFF, ANEU, GFR, CMP, CBC, PHOS #### [place] [id number] ALT [Catalytic activity/Vol] 332 U/L High 10-49 [facility] ([place] Comment on above: Performed By: #### M G, LIPID, ADIFF, ANEU, GFR, CMP, CBC, PHOS #### [address] [address] AST [Catalytic activity/Vol] 135 U/L High 8-34 [facility] ([place] Comment on above: Result Comment: Spec imen slightly hemolyzed. Results may be falsely elevated. Performed By: #### M G, LIPID, ADIFF, ANEU, GFR, CMP, CBC, PHOS #### [address] [address] Bili Total 1.8 mg/dL High 0.2-1.2 [facility] ([place]) Comment on above: Result Comment: Use of this assay is not recommended for patients undergoing treatment with eltrombopag due to the potential for falsely elevated results. Performed By: #### M G, LIPID, ADIFF, ANEU, GFR, CMP, CBC, PHOS #### [place] [address] BUN/Creatinine Ratio 3.2 ratio Low 10.0-22.0 [facility] ([place]) Comment on above: Performed By: #### M G, LIPID, ADIFF, ANEU, GFR, CMP, CBC, PHOS #### [place] [address] Calcium [Mass/Vol] 9.4 mg/dL Normal 8.4-10.1 [facility] ([place] Comment on above: Result Comment: No te - New Reference Range in effect 20 Performed By: #### M G, LIPID, ADIFF, ANEU, GFR, CMP, CBC, PHOS #### [address] [address] Chloride [Moles/Vol] 105 mmol/L Normal 98-110 [facility] ([place] Comment on above: Performed By: #### M G, LIPID, ADIFF, ANEU, GFR, CMP, CBC, PHOS #### [address] [address] CO2 [Moles/Vol] 20 mmol/L Low 22-32 [facility] ([place] Comment on above: Performed By: #### M G, LIPID, ADIFF, ANEU, GFR, CMP, CBC, PHOS #### [address] [address] Creatinine [Mass/Vol] 0.62 mg/dL Normal 0.50-1.20 [facility] ([place]) Comment on above: Performed By: #### M G, LIPID, ADIFF, ANEU, GFR, CMP, CBC, PHOS #### [address] [address] Electrolyte Balance 13.0 mEq/L Normal 4.0-15.0 Count includes the [facility] ([place]) Comment on above: Performed By: #### M G, LIPID, ADIFF, ANEU, GFR, CMP, CBC, PHOS #### [place] [id number] Globulin 4.2 G/dL High 1.5-3.8 [facility] ([place] Comment on above: Performed By: #### M G, LIPID, ADIFF, ANEU, GFR, CMP, CBC, PHOS #### [place] [id number] Glucose [Mass/Vol] 90 mg/dL Normal 70-110 [facility] ([place] Comment on above: Performed By: #### M G, LIPID, ADIFF, ANEU, GFR, CMP, CBC, PHOS #### [place] [id number] Potassium [Moles/Vol] 2.9 mmol/L Low 3.5-5.0 [facility] ([place] Comment on above: Result Comment: Spec imen slightly hemolyzed. Results may be falsely elevated. Performed By: #### M G, LIPID, ADIFF, ANEU, GFR, CMP, CBC, PHOS #### [address] [address] Sodium [Moles/Vol] 138 mmol/L Normal 136-145 [facility] ([place] Comment on above: Performed By: #### M G, LIPID, ADIFF, ANEU, GFR, CMP, CBC, PHOS #### [address] [address] Total Protein 7.8 G/dL Normal 6.0-8.5 [facility] ([place]) Comment on above: Result Comment: No te - New Reference Range in effect 20 Performed By: #### M G, LIPID, ADIFF, ANEU, GFR, CMP, CBC, PHOS #### [address] [address] Urea nitrogen [Mass/Vol] 2.0 mg/dL Low 8.0-22.0 [facility] ([place] Comment on above: Performed By: #### M G, LIPID, ADIFF, ANEU, GFR, CMP, CBC, PHOS #### [address] [address] LIPon 11-18-2020 Lipase Level 87 U/L High 12-53 [facility] ([place] Comment on above: Result Comment: No te - New Reference Range in effect 20 Specimen hemolyzed. Results may be affected. Performed By: #### M G, LIPID, ADIFF, ANEU, GFR, CMP, CBC, PHOS #### [address] [address] .GFRon 11-12-2020 GFR >60 Normal [facility] ([place]) Comment on above: Result Comment: GFR Population mean for , Non- Americans Ages 20-29 = 116 mL/min/1.73 sq.m. Ages 30-39 = 107 mL/min/1.73 sq.m. Ages 40-49 = 99 mL/min/1.73 sq.m. Ages 50-59 = 93 mL/min/1.73 sq.m. Ages 60-69 = 85 mL/min/1.73 sq.m. Ages 70+ = 75 mL/min/1.73 sq.m. Chronic Kidney Disease: Less than 60 mL/min/1.73 square meters End Stage Renal Disease: Less than 15 mL/min/1.73 square meters Performed By: #### G FR, CBC, BMP, ADIFF, ANEU #### [place] [id number] [place] [address] GFR Non- >60 Normal [facility] ([place]) Comment on above: Result Comment: GFR Population mean for , Non- Americans Ages 20-29 = 116 mL/min/1.73 sq.m. Ages 30-39 = 107 mL/min/1.73 sq.m. Ages 40-49 = 99 mL/min/1.73 sq.m. Ages 50-59 = 93 mL/min/1.73 sq.m. Ages 60-69 = 85 mL/min/1.73 sq.m. Ages 70+ = 75 mL/min/1.73 sq.m. Chronic Kidney Disease: Less than 60 mL/min/1.73 square meters End Stage Renal Disease: Less than 15 mL/min/1.73 square meters Performed By: #### G FR, CBC, BMP, ADIFF, ANEU #### [address] [address] BMPon 11-12-2020 BUN/Creatinine Ratio 3.3 ratio Low 10.0-22.0 [facility] ([place]) Comment on above: Performed By: #### G FR, CBC, BMP, ADIFF, ANEU #### [address] [address] Calcium [Mass/Vol] 9.6 mg/dL Normal 8.4-10.1 [facility] ([place]) Comment on above: Result Comment: No te - New Reference Range in effect 20 Performed By: #### G FR, CBC, BMP, ADIFF, ANEU #### [address] [address] Chloride [Moles/Vol] 109 mmol/L Normal 98-110 [facility] ([place] Comment on above: Performed By: #### G FR, CBC, BMP, ADIFF, ANEU #### [address] [address] CO2 [Moles/Vol] 17 mmol/L Low 22-32 [facility] ([place] Comment on above: Performed By: #### G FR, CBC, BMP, ADIFF, ANEU #### [address] [address] Creatinine [Mass/Vol] 0.60 mg/dL Normal 0.50-1.20 [facility] ([place] Comment on above: Performed By: #### G FR, CBC, BMP, ADIFF, ANEU #### [address] [address] Electrolyte Balance 14.0 mEq/L Normal 4.0-15.0 Count includes the [facility] ([place]) Comment on above: Performed By: #### G FR, CBC, BMP, ADIFF, ANEU #### [address] [address] Glucose [Mass/Vol] 90 mg/dL Normal 70-110 [facility] ([place] Comment on above: Performed By: #### G FR, CBC, BMP, ADIFF, ANEU #### [address] [address] Potassium [Moles/Vol] 3.3 mmol/L Low 3.5-5.0 [facility] ([place] Comment on above: Performed By: #### G FR, CBC, BMP, ADIFF, ANEU #### [place] [id number] Sodium [Moles/Vol] 140 mmol/L Normal 136-145 [facility] ([place] Comment on above: Performed By: #### G FR, CBC, BMP, ADIFF, ANEU #### [place] [address] Urea nitrogen [Mass/Vol] 2.0 mg/dL Low 8.0-22.0 [facility] ([place] Comment on above: Performed By: #### G FR, CBC, BMP, ADIFF, ANEU #### [address] [address] .Auto Diffon 11-11-2020 Basophil, Absolute 0.00 10 3/mcL Normal 0.00-0.27 [facility] ([place] Comment on above: Performed By: #### G FR, CBC, BMP, ADIFF, ANEU #### [address] [address] Basophils/100 WBC (Bld) 0.3 % Normal 0.0-2.5 [facility] ([place] Comment on above: Performed By: #### G FR, CBC, BMP, ADIFF, ANEU #### [address] [address] Eosinophil, Absolute 0.00 10 3/mcL Normal 0.00-0.65 A [facility] ([place]) Comment on above: Performed By: #### G FR, CBC, BMP, ADIFF, ANEU #### [address] [address] Eosinophils/100 WBC (Bld) 0.3 % Normal 0.0-6.0 [facility] ([place] Comment on above: Performed By: #### G FR, CBC, BMP, ADIFF, ANEU #### [address] [address] Lymphocyte, Absolute 1.70 10 3/mcL Normal 0.90-4.32 A [facility] ([place] Comment on above: Performed By: #### G FR, CBC, BMP, ADIFF, ANEU #### [address] [address] Lymphocytes/100 WBC (Bld) 16.4 % Low 20.0-40.0 [facility] ([place] Comment on above: Performed By: #### G FR, CBC, BMP, ADIFF, ANEU #### [address] [address] Monocyte, Absolute 0.80 10 3/mcL Normal 0.09-1.40 [facility] ([place] Comment on above: Performed By: #### G FR, CBC, BMP, ADIFF, ANEU #### [address] [address] Monocytes/100 WBC (Bld) 7.5 % Normal 2.0-13.0 [facility] ([place] Comment on above: Performed By: #### G FR, CBC, BMP, ADIFF, ANEU #### [address] [address] Neutrophils/100 WBC (Bld) 75.5 % High 50.0-75.0 [facility] ([place] Comment on above: Performed By: #### G FR, CBC, BMP, ADIFF, ANEU #### [address] [address] .GFRon 11-11-2020 GFR Non- >60 Normal [facility] ([place]) Comment on above: Result Comment: GFR Population mean for , Non- Americans Ages 20-29 = 116 mL/min/1.73 sq.m. Ages 30-39 = 107 mL/min/1.73 sq.m. Ages 40-49 = 99 mL/min/1.73 sq.m. Ages 50-59 = 93 mL/min/1.73 sq.m. Ages 60-69 = 85 mL/min/1.73 sq.m. Ages 70+ = 75 mL/min/1.73 sq.m. Chronic Kidney Disease: Less than 60 mL/min/1.73 square meters End Stage Renal Disease: Less than 15 mL/min/1.73 square meters Performed By: #### M G, LIPID, ADIFF, ANEU, GFR, CMP, CBC, PHOS #### [address] [address] GFR >60 Normal [facility] ([place] Comment on above: Result Comment: GFR Population mean for , Non- Americans Ages 20-29 = 116 mL/min/1.73 sq.m. Ages 30-39 = 107 mL/min/1.73 sq.m. Ages 40-49 = 99 mL/min/1.73 sq.m. Ages 50-59 = 93 mL/min/1.73 sq.m. Ages 60-69 = 85 mL/min/1.73 sq.m. Ages 70+ = 75 mL/min/1.73 sq.m. Chronic Kidney Disease: Less than 60 mL/min/1.73 square meters End Stage Renal Disease: Less than 15 mL/min/1.73 square meters Performed By: #### M G, LIPID, ADIFF, ANEU, GFR, CMP, CBC, PHOS #### [address] [address] .NEUABSon 11-11-2020 Neutrophil, Absolute 7.80 10 3/mcL Normal 2.25-8.10 A [facility] ([place] Comment on above: Performed By: #### M G, LIPID, ADIFF, ANEU, GFR, CMP, CBC, PHOS #### [address] [address] BMPon 11-11-2020 BUN/Creatinine Ratio 3.4 ratio Low 10.0-22.0 [facility] ([place]) Comment on above: Performed By: #### M G, LIPID, ADIFF, ANEU, GFR, CMP, CBC, PHOS #### [address] [address] Calcium [Mass/Vol] 9.3 mg/dL Normal 8.4-10.1 [facility] ([place] Comment on above: Result Comment: No te - New Reference Range in effect 20 Performed By: #### M G, LIPID, ADIFF, ANEU, GFR, CMP, CBC, PHOS #### [address] [address] Chloride [Moles/Vol] 108 mmol/L Normal 98-110 [facility] ([place] Comment on above: Performed By: #### M G, LIPID, ADIFF, ANEU, GFR, CMP, CBC, PHOS #### [address] [address] CO2 [Moles/Vol] 17 mmol/L Low 22-32 [facility] ([place] Comment on above: Performed By: #### M G, LIPID, ADIFF, ANEU, GFR, CMP, CBC, PHOS #### [address] [address] Creatinine [Mass/Vol] 0.58 mg/dL Normal 0.50-1.20 [facility] ([place]) Comment on above: Performed By: #### M G, LIPID, ADIFF, ANEU, GFR, CMP, CBC, PHOS #### [address] [address] Electrolyte Balance 13.0 mEq/L Normal 4.0-15.0 Count includes the [facility] ([place]) Comment on above: Performed By: #### M G, LIPID, ADIFF, ANEU, GFR, CMP, CBC, PHOS #### [address] [address] Glucose [Mass/Vol] 77 mg/dL Normal 70-110 [facility] ([place]) Comment on above: Performed By: #### M G, LIPID, ADIFF, ANEU, GFR, CMP, CBC, PHOS #### [place] [id number] Potassium [Moles/Vol] 3.4 mmol/L Low 3.5-5.0 [facility] ([place]) Comment on above: Performed By: #### M G, LIPID, ADIFF, ANEU, GFR, CMP, CBC, PHOS #### [place] [address] Sodium [Moles/Vol] 138 mmol/L Normal 136-145 [facility] ([place]) Comment on above: Performed By: #### M G, LIPID, ADIFF, ANEU, GFR, CMP, CBC, PHOS #### [place] [address] Urea nitrogen [Mass/Vol] 2.0 mg/dL Low 8.0-22.0 [facility] ([place]) Comment on above: Performed By: #### M G, LIPID, ADIFF, ANEU, GFR, CMP, CBC, PHOS #### [place] [address] CBCon 11-11-2020 Erythrocyte distribution width (RBC) [Ratio] 13.2 % Normal 11.5-15.5 [facility] ([place]) Comment on above: Performed By: #### G FR, CBC, BMP, ADIFF, ANEU #### [place] [address] Hematocrit (Bld) [Volume fraction] 42.0 % Normal 34.0-46.0 [facility] ([place]) Comment on above: Performed By: #### G FR, CBC, BMP, ADIFF, ANEU #### [place] [address] Hgb 14.3 G/dL Normal 12.0-16.0 [facility] ([place]) Comment on above: Performed By: #### G FR, CBC, BMP, ADIFF, ANEU #### [place] [address] MCH (RBC) [Entitic mass] 29.0 pg Normal 27.0-33.0 [facility] ([place]) Comment on above: Performed By: #### G FR, CBC, BMP, ADIFF, ANEU #### [place] [address] MCHC 33.9 G/dL Normal 32.0-36.0 [facility] ([place] Comment on above: Performed By: #### G FR, CBC, BMP, ADIFF, ANEU #### [place] [address] MCV (RBC) [Entitic vol] 85.5 fL Normal 80.0-99.0 [facility] ([place]) Comment on above: Performed By: #### G FR, CBC, BMP, ADIFF, ANEU #### [place] [address] Platelet 209 10 3/mcL Normal 150-450 [facility] ([place]) Comment on above: Performed By: #### G FR, CBC, BMP, ADIFF, ANEU #### [place] [address] Platelet mean volume (Bld) [Entitic vol] 11.0 fL High 6.6-10.5 [facility] ([place] Comment on above: Performed By: #### G FR, CBC, BMP, ADIFF, ANEU #### [place] [address] RBC 4.91 10 6/mcL Normal 4.10-5.30 [facility] ([place] Comment on above: Performed By: #### G FR, CBC, BMP, ADIFF, ANEU #### [place] [address] WBC 10.40 10 3/mcL Normal 4.50-10.80 [facility] ([place] Comment on above: Performed By: #### G FR, CBC, BMP, ADIFF, ANEU #### [place] [address] UAon 11-01-2020 Color (U) Yellow Normal [facility] ([place] Comment on above: Performed By: #### M G, LIPID, ADIFF, ANEU, GFR, CMP, CBC, PHOS #### [address] [address] Glucose (U) [Mass/Vol] Negative Normal Negative [facility] ([place]) Comment on above: Performed By: #### M G, LIPID, ADIFF, ANEU, GFR, CMP, CBC, PHOS #### [address] [address] Ketones Ql (U) >=160 Abnormal Neg-Trace [facility] ([place] Comment on above: Performed By: #### M G, LIPID, ADIFF, ANEU, GFR, CMP, CBC, PHOS #### [address] [address] UA Appear Hazy Abnormal [facility] ([place] Comment on above: Performed By: #### M G, LIPID, ADIFF, ANEU, GFR, CMP, CBC, PHOS #### [address] [address] UA Blood Small Abnormal Neg-Trace [facility] ([place] Comment on above: Performed By: #### M G, LIPID, ADIFF, ANEU, GFR, CMP, CBC, PHOS #### [address] [address] UA Leuk Est Negative Normal Negative [facility] ([place] Comment on above: Performed By: #### M G, LIPID, ADIFF, ANEU, GFR, CMP, CBC, PHOS #### [address] [address] UA Nitrite Negative Normal Negative [facility] ([place] Comment on above: Performed By: #### M G, LIPID, ADIFF, ANEU, GFR, CMP, CBC, PHOS #### [address] [address] UA pH 5.5 Normal 5.0 - 8.0 [facility] ([place] Comment on above: Performed By: #### M G, LIPID, ADIFF, ANEU, GFR, CMP, CBC, PHOS #### [address] [address] UA Protein Negative Normal Negative [facility] ([place] Comment on above: Performed By: #### M G, LIPID, ADIFF, ANEU, GFR, CMP, CBC, PHOS #### [address] [address] UA Spec Grav 1.025 Normal [facility] ([place] Comment on above: Performed By: #### M G, LIPID, ADIFF, ANEU, GFR, CMP, CBC, PHOS #### [address] [address] UA Specimen Type Clean Catch Normal [facility] ([place] Comment on above: Performed By: #### M G, LIPID, ADIFF, ANEU, GFR, CMP, CBC, PHOS #### [address] [address] UA Urobilinogen 1.0 E.U./dL Normal [facility] ([place] Comment on above: Performed By: #### M G, LIPID, ADIFF, ANEU, GFR, CMP, CBC, PHOS #### [address] [address] Urobilinogen (U) [Mass/Vol] Negative Normal Neg-Trace [facility] ([place] Comment on above: Performed By: #### M G, LIPID, ADIFF, ANEU, GFR, CMP, CBC, PHOS #### [address] [address] UAMICon 11-01-2020 UA Amorphus 1+ /hpf Normal [facility] ([place] Comment on above: Performed By: #### M G, LIPID, ADIFF, ANEU, GFR, CMP, CBC, PHOS #### [address] [address] UA Bacteria 1+ /hpf Abnormal Negative [facility] ([place] Comment on above: Performed By: #### M G, LIPID, ADIFF, ANEU, GFR, CMP, CBC, PHOS #### [address] [address] UA Mucous 1+ /hpf Normal [facility] ([place] Comment on above: Performed By: #### M G, LIPID, ADIFF, ANEU, GFR, CMP, CBC, PHOS #### [place] [address] UA RBC 0-2 Normal 0-2 [facility] ([place] Comment on above: Performed By: #### M G, LIPID, ADIFF, ANEU, GFR, CMP, CBC, PHOS #### [address] [address] UA Squam Epithelial 3-5 Normal 0-20 Count includes the [facility] ([place]) Comment on above: Performed By: #### M G, LIPID, ADIFF, ANEU, GFR, CMP, CBC, PHOS #### [address] [address] UA WBC 3-5 Normal 0-5 [facility] ([place] Comment on above: Performed By: #### M G, LIPID, ADIFF, ANEU, GFR, CMP, CBC, PHOS #### [address] [address] .Auto Diffon 10-17-2020 Basophil, Absolute 0.00 10 3/mcL Normal 0.00-0.27 [facility] ([place]) Comment on above: Performed By: #### M G, LIPID, ADIFF, ANEU, GFR, CMP, CBC, PHOS #### [address] [address] Basophils/100 WBC (Bld) 0.4 % Normal 0.0-2.5 [facility] ([place] Comment on above: Performed By: #### M G, LIPID, ADIFF, ANEU, GFR, CMP, CBC, PHOS #### [address] [address] Eosinophil, Absolute 0.00 10 3/mcL Normal 0.00-0.65 A [facility] ([place]) Comment on above: Performed By: #### M G, LIPID, ADIFF, ANEU, GFR, CMP, CBC, PHOS #### [address] [address] Eosinophils/100 WBC (Bld) 0.4 % Normal 0.0-6.0 [facility] ([place] Comment on above: Performed By: #### M G, LIPID, ADIFF, ANEU, GFR, CMP, CBC, PHOS #### [address] [address] Lymphocyte, Absolute 1.50 10 3/mcL Normal 0.90-4.32 A [facility] ([place]) Comment on above: Performed By: #### M G, LIPID, ADIFF, ANEU, GFR, CMP, CBC, PHOS #### [address] [address] Lymphocytes/100 WBC (Bld) 16.9 % Low 20.0-40.0 [facility] ([place]) Comment on above: Performed By: #### M G, LIPID, ADIFF, ANEU, GFR, CMP, CBC, PHOS #### [address] [address] Monocyte, Absolute 0.40 10 3/mcL Normal 0.09-1.40 [facility] ([place]) Comment on above: Performed By: #### M G, LIPID, ADIFF, ANEU, GFR, CMP, CBC, PHOS #### [address] [address] Monocytes/100 WBC (Bld) 5.0 % Normal 2.0-13.0 [facility] ([place]) Comment on above: Performed By: #### M G, LIPID, ADIFF, ANEU, GFR, CMP, CBC, PHOS #### [address] [address] Neutrophils/100 WBC (Bld) 77.3 % High 50.0-75.0 [facility] ([place]) Comment on above: Performed By: #### M G, LIPID, ADIFF, ANEU, GFR, CMP, CBC, PHOS #### [address] [address] .GFRon 10-17-2020 GFR Non- >60 Normal [facility] ([place]) Comment on above: Result Comment: GFR Population mean for , Non- Americans Ages 20-29 = 116 mL/min/1.73 sq.m. Ages 30-39 = 107 mL/min/1.73 sq.m. Ages 40-49 = 99 mL/min/1.73 sq.m. Ages 50-59 = 93 mL/min/1.73 sq.m. Ages 60-69 = 85 mL/min/1.73 sq.m. Ages 70+ = 75 mL/min/1.73 sq.m. Chronic Kidney Disease: Less than 60 mL/min/1.73 square meters End Stage Renal Disease: Less than 15 mL/min/1.73 square meters Performed By: #### G FR, CBC, BMP, ADIFF, ANEU #### [address] [address] GFR >60 Normal [facility] ([place]) Comment on above: Result Comment: GFR Population mean for , Non- Americans Ages 20-29 = 116 mL/min/1.73 sq.m. Ages 30-39 = 107 mL/min/1.73 sq.m. Ages 40-49 = 99 mL/min/1.73 sq.m. Ages 50-59 = 93 mL/min/1.73 sq.m. Ages 60-69 = 85 mL/min/1.73 sq.m. Ages 70+ = 75 mL/min/1.73 sq.m. Chronic Kidney Disease: Less than 60 mL/min/1.73 square meters End Stage Renal Disease: Less than 15 mL/min/1.73 square meters Performed By: #### G FR, CBC, BMP, ADIFF, ANEU #### [address] [address] .NEUABSon 10-17-2020 Neutrophil, Absolute 6.70 10 3/mcL Normal 2.25-8.10 A [facility] ([place]) Comment on above: Performed By: #### M G, LIPID, ADIFF, ANEU, GFR, CMP, CBC, PHOS #### [address] [address] BMPon 10-17-2020 BUN/Creatinine Ratio 7.4 ratio Low 10.0-22.0 [facility] ([place]) Comment on above: Performed By: #### M G, LIPID, ADIFF, ANEU, GFR, CMP, CBC, PHOS #### [address] [address] Calcium [Mass/Vol] 8.9 mg/dL Normal 8.4-10.1 [facility] ([place]) Comment on above: Result Comment: No te - New Reference Range in effect 20 Performed By: #### M G, LIPID, ADIFF, ANEU, GFR, CMP, CBC, PHOS #### [address] [address] Chloride [Moles/Vol] 107 mmol/L Normal 98-110 [facility] ([place]) Comment on above: Performed By: #### M G, LIPID, ADIFF, ANEU, GFR, CMP, CBC, PHOS #### [address] [address] CO2 [Moles/Vol] 23 mmol/L Normal 22-32 [facility] ([place] Comment on above: Performed By: #### M G, LIPID, ADIFF, ANEU, GFR, CMP, CBC, PHOS #### [address] [address] Creatinine [Mass/Vol] 0.54 mg/dL Normal 0.50-1.20 [facility] ([place] Comment on above: Performed By: #### M G, LIPID, ADIFF, ANEU, GFR, CMP, CBC, PHOS #### [address] [address] Electrolyte Balance 9.0 mEq/L Normal 4.0-15.0 Count includes the [facility] ([place]) Comment on above: Performed By: #### M G, LIPID, ADIFF, ANEU, GFR, CMP, CBC, PHOS #### [address] [address] Glucose [Mass/Vol] 71 mg/dL Normal 70-110 [facility] ([place] Comment on above: Performed By: #### M G, LIPID, ADIFF, ANEU, GFR, CMP, CBC, PHOS #### [address] [address] Potassium [Moles/Vol] 3.7 mmol/L Normal 3.5-5.0 [facility] ([place] Comment on above: Performed By: #### M G, LIPID, ADIFF, ANEU, GFR, CMP, CBC, PHOS #### [address] [address] Sodium [Moles/Vol] 139 mmol/L Normal 136-145 [facility] ([place] Comment on above: Performed By: #### M G, LIPID, ADIFF, ANEU, GFR, CMP, CBC, PHOS #### [place] [address] Urea nitrogen [Mass/Vol] 4.0 mg/dL Low 8.0-22.0 [facility] ([place] Comment on above: Performed By: #### M G, LIPID, ADIFF, ANEU, GFR, CMP, CBC, PHOS #### [address] [address] CBCon 10-17-2020 Erythrocyte distribution width (RBC) [Ratio] 13.2 % Normal 11.5-15.5 [facility] ([place] Comment on above: Performed By: #### M G, LIPID, ADIFF, ANEU, GFR, CMP, CBC, PHOS #### [place] [address] Hematocrit (Bld) [Volume fraction] 41.1 % Normal 34.0-46.0 [facility] ([place] Comment on above: Performed By: #### M G, LIPID, ADIFF, ANEU, GFR, CMP, CBC, PHOS #### [address] [address] Hgb 13.9 G/dL Normal 12.0-16.0 [facility] ([place] Comment on above: Performed By: #### M G, LIPID, ADIFF, ANEU, GFR, CMP, CBC, PHOS #### [place] [id number] MCH (RBC) [Entitic mass] 28.9 pg Normal 27.0-33.0 [facility] ([place] Comment on above: Performed By: #### M G, LIPID, ADIFF, ANEU, GFR, CMP, CBC, PHOS #### [place] [id number] MCHC 33.9 G/dL Normal 32.0-36.0 [facility] ([place] Comment on above: Performed By: #### M G, LIPID, ADIFF, ANEU, GFR, CMP, CBC, PHOS #### [place] [id number] MCV (RBC) [Entitic vol] 85.4 fL Normal 80.0-99.0 [facility] ([place] Comment on above: Performed By: #### M G, LIPID, ADIFF, ANEU, GFR, CMP, CBC, PHOS #### [place] [address] Platelet 221 10 3/mcL Normal 150-450 [facility] ([place] Comment on above: Performed By: #### M G, LIPID, ADIFF, ANEU, GFR, CMP, CBC, PHOS #### [place] [id number] Platelet mean volume (Bld) [Entitic vol] 9.5 fL Normal 6.6-10.5 [facility] ([place] Comment on above: Performed By: #### M G, LIPID, ADIFF, ANEU, GFR, CMP, CBC, PHOS #### [place] [address] RBC 4.81 10 6/mcL Normal 4.10-5.30 [facility] ([place] Comment on above: Performed By: #### M G, LIPID, ADIFF, ANEU, GFR, CMP, CBC, PHOS #### [place] [id number] WBC 8.70 10 3/mcL Normal 4.50-10.80 [facility] ([place] Comment on above: Performed By: #### M G, LIPID, ADIFF, ANEU, GFR, CMP, CBC, PHOS #### [place] [address] GL0on 09-21-2020 Glucose [Mass/Vol] 138 mg/dL Normal [facility] ([place] Comment on above: Performed By: #### M G, LIPID, ADIFF, ANEU, GFR, CMP, CBC, PHOS #### [place] [address] GL1on 09-21-2020 Glucose [Mass/Vol] 133 mg/dL Normal 70-139 [facility] ([place] Comment on above: Performed By: #### M G, LIPID, ADIFF, ANEU, GFR, CMP, CBC, PHOS #### [place] [id number] GL2on 09-21-2020 Glucose [Mass/Vol] 138 mg/dL Normal [facility] ([place] Comment on above: Performed By: #### M G, LIPID, ADIFF, ANEU, GFR, CMP, CBC, PHOS #### [place] [address] GL3on 09-21-2020 Glucose [Mass/Vol] 100 mg/dL Normal [facility] ([place] Comment on above: Performed By: #### M G, LIPID, ADIFF, ANEU, GFR, CMP, CBC, PHOS #### [place] [address] GLFon 09-21-2020 Glucose [Mass/Vol] 87 mg/dL Normal 70-110 [facility] ([place] Comment on above: Performed By: #### M G, LIPID, ADIFF, ANEU, GFR, CMP, CBC, PHOS #### [place] [address] HCGon 09-09-2020 Date of LMP Normal [facility] ([place] Comment on above: Performed By: #### M G, LIPID, ADIFF, ANEU, GFR, CMP, CBC, PHOS #### [place] [address] hCG, quantitative [address].8 mIU/mL Normal [facility] ([place]) Comment on above: Result Comment: Dave titative hCG reference ranges: Non adults. . . . . . . . . . .0 - 5 mIU/mL (All values referenced to 1st IRP / 3rd IS 75/537 standards.) females based on gestational age: 1 week. . . . . . . . . . . . . . . .5 - 50 mIU/mL 2 weeks . . . . . . . . . . . . . . .50 - 500 mIU/mL 3 weeks . . . . . . . . . . . . . . .100 - 10,000 mIU/ml 4 weeks . . . . . . . . . . . . . . .1,000 - 30,000 mIU/mL 6-8 weeks . . . . . . . . . . . . . . .12,000 - 270,000 mIU/mL 12 weeks . . . . . . . . . . . . . . .15,000 - 220,000 mIU/mL 2nd trimester . . . . . . . . . . . .2,500 - 82,000 mIU/mL 3rd trimester . . . . . . . . . . . .2,400 - 50,000 mIU/mL Performed By: #### M G, LIPID, ADIFF, ANEU, GFR, CMP, CBC, PHOS #### [address] [address] VARISon 09-09-[address] Positive Normal [facility] ([place]) Comment on above: Result Comment: This immune status assay detects antibody to Varicella Zoster virus. Interpret results in conjunction with clinical history. Positive: Reactive for antibodies to Varicella IgG. If clinically indicated, order Varicella IGM to rule out recent infection. Equivocal: Equivocal for antibodies to Varicella IgG. Suggest repeat testing in 10-14 days. Negative: Non-reactive for antibodies to Varicella IgG. Performed By: #### M G, LIPID, ADIFF, ANEU, GFR, CMP, CBC, PHOS #### [address] [address] .Auto Diffon 09-08-2020 Basophil, Absolute 0.10 10 3/mcL Normal 0.00-0.27 [facility] ([place]) Comment on above: Performed By: #### M G, LIPID, ADIFF, ANEU, GFR, CMP, CBC, PHOS #### [address] [address] Basophils/100 WBC (Bld) 0.8 % Normal 0.0-2.5 [facility] ([place] Comment on above: Performed By: #### M G, LIPID, ADIFF, ANEU, GFR, CMP, CBC, PHOS #### [address] [address] Eosinophil, Absolute 0.10 10 3/mcL Normal 0.00-0.65 A [facility] ([place]) Comment on above: Performed By: #### M G, LIPID, ADIFF, ANEU, GFR, CMP, CBC, PHOS #### [address] [address] Eosinophils/100 WBC (Bld) 0.8 % Normal 0.0-6.0 [facility] ([place]) Comment on above: Performed By: #### M G, LIPID, ADIFF, ANEU, GFR, CMP, CBC, PHOS #### [address] [address] Lymphocyte, Absolute 2.30 10 3/mcL Normal 0.90-4.32 A [facility] ([place]) Comment on above: Performed By: #### M G, LIPID, ADIFF, ANEU, GFR, CMP, CBC, PHOS #### [address] [address] Lymphocytes/100 WBC (Bld) 26.0 % Normal 20.0-40.0 [facility] ([place]) Comment on above: Performed By: #### M G, LIPID, ADIFF, ANEU, GFR, CMP, CBC, PHOS #### [address] [address] Monocyte, Absolute 0.30 10 3/mcL Normal 0.09-1.40 [facility] ([place]) Comment on above: Performed By: #### M G, LIPID, ADIFF, ANEU, GFR, CMP, CBC, PHOS #### [address] [address] Monocytes/100 WBC (Bld) 3.3 % Normal 2.0-13.0 [facility] ([place]) Comment on above: Performed By: #### M G, LIPID, ADIFF, ANEU, GFR, CMP, CBC, PHOS #### [address] [address] Neutrophils/100 WBC (Bld) 69.1 % Normal 50.0-75.0 [facility] ([place]) Comment on above: Performed By: #### M G, LIPID, ADIFF, ANEU, GFR, CMP, CBC, PHOS #### [address] [address] .NEUABSon 09-08-2020 Neutrophil, Absolute 6.10 10 3/mcL Normal 2.25-8.10 A [facility] ([place]) Comment on above: Performed By: #### M G, LIPID, ADIFF, ANEU, GFR, CMP, CBC, PHOS #### [place] [id number] CBCon 09-08-2020 Erythrocyte distribution width (RBC) [Ratio] 13.1 % Normal 11.5-15.5 [facility] ([place] Comment on above: Performed By: #### M G, LIPID, ADIFF, ANEU, GFR, CMP, CBC, PHOS #### [place] [address] Hematocrit (Bld) [Volume fraction] 41.7 % Normal 34.0-46.0 [facility] ([place] Comment on above: Performed By: #### M G, LIPID, ADIFF, ANEU, GFR, CMP, CBC, PHOS #### [place] [address] Hgb 14.0 G/dL Normal 12.0-16.0 [facility] ([place] Comment on above: Performed By: #### M G, LIPID, ADIFF, ANEU, GFR, CMP, CBC, PHOS #### [place] [address] MCH (RBC) [Entitic mass] 29.3 pg Normal 27.0-33.0 [facility] ([place] Comment on above: Performed By: #### M G, LIPID, ADIFF, ANEU, GFR, CMP, CBC, PHOS #### [place] [address] MCHC 33.6 G/dL Normal 32.0-36.0 [facility] ([place] Comment on above: Performed By: #### M G, LIPID, ADIFF, ANEU, GFR, CMP, CBC, PHOS #### [place] [address] MCV (RBC) [Entitic vol] 87.2 fL Normal 80.0-99.0 [facility] ([place] Comment on above: Performed By: #### M G, LIPID, ADIFF, ANEU, GFR, CMP, CBC, PHOS #### [place] [address] Platelet 249 10 3/mcL Normal 150-450 [facility] ([place] Comment on above: Performed By: #### M G, LIPID, ADIFF, ANEU, GFR, CMP, CBC, PHOS #### [place] [address] Platelet mean volume (Bld) [Entitic vol] 9.6 fL Normal 6.6-10.5 [facility] ([place] Comment on above: Performed By: #### M G, LIPID, ADIFF, ANEU, GFR, CMP, CBC, PHOS #### [place] [address] RBC 4.78 10 6/mcL Normal 4.10-5.30 [facility] ([place] Comment on above: Performed By: #### M G, LIPID, ADIFF, ANEU, GFR, CMP, CBC, PHOS #### [place] [address] WBC 8.90 10 3/mcL Normal 4.50-10.80 [facility] ([place] Comment on above: Performed By: #### M G, LIPID, ADIFF, ANEU, GFR, CMP, CBC, PHOS #### [place] [address] CTPCRon 09-08-2020 C. trachomatis Interp Normal See CT Interp N [facility] ([place]) Comment on above: Result Comment: C. t rachomatis DNA not detected. Specimen is presumptive negative for C. trachomatis. A negative result does not preclude C. trachomatis infection because results depend on adequate specimen collection, absence of inhibitors, and sufficient DNA to be detected. See CT Interp N Performed By: #### M G, LIPID, ADIFF, ANEU, GFR, CMP, CBC, PHOS #### [place] [address] C.trachomatis PCR Negative Normal Negative [facility] ([place] Comment on above: Result Comment: Estefania benz (PCR) assay performed on the [employer] 4800 system. Performed By: #### M G, LIPID, ADIFF, ANEU, GFR, CMP, CBC, PHOS #### [address] [address] Chlam Source Cervix Normal [facility] ([place] Comment on above: Performed By: #### M G, LIPID, ADIFF, ANEU, GFR, CMP, CBC, PHOS #### [place] [id number] 09-08-2020 Glucose [Mass/Vol] 133 mg/dL Normal 70-139 [facility] ([place] Comment on above: Performed By: #### M G, LIPID, ADIFF, ANEU, GFR, CMP, CBC, PHOS #### [place] [address] HBSAGon 09-08-2020 Hep B Surf Ag Non-Reactive Normal Non-Reactive [facility] ([place] Comment on above: Performed By: #### M G, LIPID, ADIFF, ANEU, GFR, CMP, CBC, PHOS #### [place] [address] HIVon 09-08-2020 HIV 1/2 Ab Normal Non-Reactive [facility] ([place] Comment on above: Result Comment: Non- Reactive Specimen is negative for anti-HIV-1 and anti-HIV-2. Performed By: #### M G, LIPID, ADIFF, ANEU, GFR, CMP, CBC, PHOS #### [address] [address] [id number] 09-08-2020 GC PCR Source Cervix Normal [facility] ([place] Comment on above: Performed By: #### M G, LIPID, ADIFF, ANEU, GFR, CMP, CBC, PHOS #### [place] [id number] N. gonorrhoeae (PCR) Negative Normal Negative [facility] ([place]) Comment on above: Result Comment: Estefania leivaar (PCR) assay performed on the [employer] 4800 System. Performed By: #### M G, LIPID, ADIFF, ANEU, GFR, CMP, CBC, PHOS #### [place] [address] N. gonorrhoeae Interp Normal See NG Interp N [facility] ([place] Comment on above: Result Comment: N. g onorrhoeae DNA not detected. Specimen is presumptive negative for N. gonorrhoeae. A negative result does not preclude Neisseria gonorrhoeae infection because results depend on adequate specimen collection, absence of inhibitors, and sufficient DNA to be detected. See NG Interp N Performed By: #### M G, LIPID, ADIFF, ANEU, GFR, CMP, CBC, PHOS #### [place] [address] PABOon 09-08-2020 PABO/Rh Interp Positive Invalid Interpretation Code [facility] ([place] Comment on above: Performed By: #### M G, LIPID, ADIFF, ANEU, GFR, CMP, CBC, PHOS #### [place] [address] PABSon 09-08-2020 PABS Interp Negative Normal [facility] ([place] Comment on above: Performed By: #### M G, LIPID, ADIFF, ANEU, GFR, CMP, CBC, PHOS #### [place] [address] RPRon 09-08-2020 Reagin Ab RPR Ql (S) Non-Reactive Normal Non-Reactive [facility] ([place] Comment on above: Result Comment: The RPR test is a non-treponemal assay useful as an aid in the diagnosis of primary and secondary syphilis. It converts to positive generally within 2 weeks after the appearance of a lesion. This test is also useful for monitoring response to antibiotic therapy. A positive RPR screening test will be followed by the FTA ABS test. False positive RPR tests may occur in 1) patients with underlying autoimmune disorders, 2) elderly patients, 3) , and 4) other conditions with abnormal serum globulins. Performed By: #### M G, LIPID, ADIFF, ANEU, GFR, CMP, CBC, PHOS #### [address] [place], [place] [address] RUBISon 09-08-[address] Positive Normal Positive [facility] ([place]) Comment on above: Result Comment: This immune status assay detects IgM and/or IgG antibody to Rubella. Interpret results in conjunction with clinical history. POS: Antibody detected; exposure at undetermined recent or distant time. If clinically indicated, order Rubella IGM to rule out recent infection. NEG: No antibody detected. Performed By: #### M G, LIPID, ADIFF, ANEU, GFR, CMP, CBC, PHOS #### [facility] [address] [place] [id number] C. Trachomatis, External Res ultOrdered By: Historical Provider on 09-07-2020 C. Trachomatis, External Result Negative [facility] Work Phone: [phone] HIV, External ResultOrdered By: Historical Provider on 09-07-2020 HIV, External Result NR [facility] Work Phone: [phone] Hepatitis B, External Result Ordered By: Historical Provider on 09-07-2020 Hep B, External Result NR [facility] Work Phone: [phone] N. Gonorrhoeae, External Res ultOrdered By: Historical Provider on 09-07-2020 N. Gonorrhoeae, External Result nrg [facility] Work Phone: [phone] Panel InformationOrdered By: Historical Provider on 09-07-2020 [facility] Work Phone: [phone] [facility] Work Phone: [phone] RPR, External LabOrdered By: Historical Provider on 09-07-2020 RPR, External Result NR [facility] Work Phone: [phone] Rubella Titer, External Resu ltOrdered By: Historical Provider on 09-07-2020 Rubella Titer, External Result immune [facility] Work Phone: UAon 09-07-2020 Color (U) Yellow Normal [facility] ([place]) Comment on above: Performed By: #### M G, LIPID, ADIFF, ANEU, GFR, CMP, CBC, PHOS #### [address] [address] Glucose (U) [Mass/Vol] Negative Normal Negative [facility] ([place]) Comment on above: Performed By: #### M G, LIPID, ADIFF, ANEU, GFR, CMP, CBC, PHOS #### [address] [address] Ketones Ql (U) Negative Normal Neg-Trace [facility] ([place]) Comment on above: Performed By: #### M G, LIPID, ADIFF, ANEU, GFR, CMP, CBC, PHOS #### [address] [address] UA Appear Turbid Abnormal Clear [facility] ([place]) Comment on above: Performed By: #### M G, LIPID, ADIFF, ANEU, GFR, CMP, CBC, PHOS #### [address] [address] UA Blood Negative Normal Neg-Trace [facility] ([place]) Comment on above: Performed By: #### M G, LIPID, ADIFF, ANEU, GFR, CMP, CBC, PHOS #### [address] [address] UA Leuk Est Negative Normal Negative [facility] ([place]) Comment on above: Performed By: #### M G, LIPID, ADIFF, ANEU, GFR, CMP, CBC, PHOS #### [address] [address] UA Nitrite Negative Normal Negative [facility] ([place]) Comment on above: Performed By: #### M G, LIPID, ADIFF, ANEU, GFR, CMP, CBC, PHOS #### [address] [address] UA pH 5.0 Normal 5.0 - 8.0 [facility] ([place]) Comment on above: Performed By: #### M G, LIPID, ADIFF, ANEU, GFR, CMP, CBC, PHOS #### [address] [address] UA Protein Negative Normal Negative [facility] ([place]) Comment on above: Performed By: #### M G, LIPID, ADIFF, ANEU, GFR, CMP, CBC, PHOS #### [address] [address] UA Spec Grav 1.015 Normal 1.006-1.029 [facility] ([place]) Comment on above: Performed By: #### M G, LIPID, ADIFF, ANEU, GFR, CMP, CBC, PHOS #### [address] [address] UA Specimen Type Clean Catch Normal [facility] ([place]) Comment on above: Performed By: #### M G, LIPID, ADIFF, ANEU, GFR, CMP, CBC, PHOS #### [address] [address] UA Urobilinogen 0.2 E.U./dL Normal 0.2-1.0 [facility] ([place]) Comment on above: Performed By: #### M G, LIPID, ADIFF, ANEU, GFR, CMP, CBC, PHOS #### [address] [address] Urobilinogen (U) [Mass/Vol] Negative Normal Neg-Trace [facility] ([place]) Comment on above: Performed By: #### M G, LIPID, ADIFF, ANEU, GFR, CMP, CBC, PHOS #### [address] [address] UAMICon 09-07-2020 UA Amorphus 4+ /hpf Normal [facility] ([place]) Comment on above: Performed By: #### M G, LIPID, ADIFF, ANEU, GFR, CMP, CBC, PHOS #### [address] [address] UA Bacteria 1+ /hpf Abnormal Negative [facility] ([place]) Comment on above: Performed By: #### M G, LIPID, ADIFF, ANEU, GFR, CMP, CBC, PHOS #### [address] [address] UA RBC Negative Normal 0-2 [facility] ([place]) Comment on above: Performed By: #### M G, LIPID, ADIFF, ANEU, GFR, CMP, CBC, PHOS #### [address] [address] UA Squam Epithelial 0-2 Normal 0-20 Count includes the [facility] ([place]) Comment on above: Performed By: #### M G, LIPID, ADIFF, ANEU, GFR, CMP, CBC, PHOS #### [place] [id number] [place] [address] UA WBC Negative Normal 0-5 [facility] ([place]) Comment on above: Performed By: #### M G, LIPID, ADIFF, ANEU, GFR, CMP, CBC, PHOS #### [facility] [address] [place] [id number] Influenza virus A and B and SARS-CoV-2 (COVID-19) Ag panel - Upper respiratory specim SARS-CoV-2 (COVID-19) RNA LANNY+probe Ql (Resp) [facility] Work Phone: No Panel Information SARS-CoV-2 & FLU Antigen (Rapid) [facility] Work Phone: RSV Ag EIA RSV Ag Immune stain Ql (Tiss) [facility] Work Phone: Vital Signs Date Time Vital Sign Value Performing Clinician Facility 06-26-2024 09:31-0500 Body mass index (BMI) [Ratio] 46.29 kg/m2 Candido Whalen APRN.[employer] Work Phone: [facility] 06-26-2024 09:31-0500 Body temperature 98.71 [degF] Candido Whalen APRN.[employer] Work Phone: [facility] 06-26-2024 09:31-0500 Body weight 114.8 kg Candido Whalen APRN.[employer] Work Phone: [facility] 06-26-2024 09:31-0500 Diastolic blood pressure 77 mm[Hg] Candido Whalen APRN.[employer] Work Phone: [facility] 06-26-2024 09:31-0500 Heart rate 92 /min Candido Whalen APRN.[employer] Work Phone: [facility] 06-26-2024 09:31-0500 Respiratory rate 16 /min Candido Whalen APRN.[employer] Work Phone: [facility] 06-26-2024 09:31-0500 SaO2% (BldA) [Mass fraction] 96 % Candido Whalen APRN.[employer] Work Phone: [facility] 06-26-2024 09:31-0500 Systolic blood pressure 114 mm[Hg] Candido Whalen APRN.[employer] Work Phone: [facility] 12-07-2023 09:18-0400 Body mass index (BMI) [Ratio] 44.96 kg/m2 Candido Whalen APRN.[employer] Work Phone: [facility] 12-07-2023 09:18-0400 Body temperature 98.2 [degF] Candido Whalen APRN.[employer] Work Phone: [facility] 12-07-2023 09:18-0400 Body weight 111.5 kg Candido Whalen APRN.[employer] Work Phone: [facility] 12-07-2023 09:18-0400 Diastolic blood pressure 66 mm[Hg] Candido Whalen APRN.[employer] Work Phone: [facility] 12-07-2023 09:18-0400 Heart rate 76 /min Candido Whalen APRN.[employer] Work Phone: [facility] 12-07-2023 09:18-0400 Respiratory rate 16 /min Candido Whalen APRN.[employer] Work Phone: [facility] 12-07-2023 09:18-0400 SaO2% (BldA) [Mass fraction] 99 % Candido Whalen APRN.[employer] Work Phone: [facility] 12-07-2023 09:18-0400 Systolic blood pressure 124 mm[Hg] Candido Whalen APRN.[employer] Work Phone: [facility] 11-05-2023 17:23-0400 Body temperature 97.8 [degF] [facility] 11-05-2023 17:23-0400 Diastolic blood pressure 79 mm[Hg] [facility] 11-05-2023 17:23-0400 Heart rate 84 /min [facility] 11-05-2023 17:23-0400 Respiratory rate 16 /min [facility] 11-05-2023 17:23-0400 SaO2% (BldA) [Mass fraction] 99 % [facility] 11-05-2023 17:23-0400 Systolic blood pressure 129 mm[Hg] [facility] 11-05-2023 16:22-0400 Body height 154.94 cm [facility] 11-05-2023 16:22-0400 Body mass index (BMI) [Ratio] 37.8 kg/m2 [facility] 11-05-2023 16:22-0400 Body weight 90.71 kg [facility] 08-26-2023 16:25-0500 Body height 154.94 cm [facility] 08-26-2023 16:25-0500 Body mass index (BMI) [Ratio] 37.8 kg/m2 [facility] 08-26-2023 16:25-0500 Body temperature 96.8 [degF] [facility] 08-26-2023 16:25-0500 Body weight 90.71 kg [facility] 08-26-2023 16:25-0500 Diastolic blood pressure 92 mm[Hg] [facility] 08-26-2023 16:25-0500 Heart rate 81 /min [facility] 08-26-2023 16:25-0500 Respiratory rate 16 /min [facility] 08-26-2023 16:25-0500 SaO2% (BldA) [Mass fraction] 99 % [facility] 08-26-2023 16:25-0500 Systolic blood pressure 138 mm[Hg] [facility] 05-12-2023 22:09-0400 Body height 154.94 cm [facility] 05-12-2023 22:09-0400 Body mass index (BMI) [Ratio] 46.3 kg/m2 [facility] 05-12-2023 22:09-0400 Body temperature 98.8 [degF] [facility] 05-12-2023 22:09-0400 Body weight 111.13 kg [facility] 05-12-2023 22:09-0400 Diastolic blood pressure 93 mm[Hg] [facility] 05-12-2023 22:09-0400 Heart rate 100 /min [facility] 05-12-2023 22:09-0400 Respiratory rate 18 /min [facility] 05-12-2023 22:09-0400 SaO2% (BldA) [Mass fraction] 98 % [facility] 05-12-2023 22:09-0400 Systolic blood pressure 141 mm[Hg] [facility] 03-01-2023 10:22-0400 Body weight 104.78 kg Casi Navarro MD Work Phone: [facility] 03-01-2023 10:22-0400 Diastolic blood pressure 74 mm[Hg] Casi Navarro MD Work Phone: [facility] 03-01-2023 10:22-0400 Systolic blood pressure 110 mm[Hg] Casi Navarro MD Work Phone: [facility] 11-29-2022 13:14-0400 Body temperature 98.49 [degF] Shane Tse RESIDENTIAL SPECIALIST.[employer] Work Phone: [facility] 11-29-2022 13:14-0400 Body weight 99.25 kg Shane Tse RESIDENTIAL SPECIALIST.[employer] Work Phone: [facility] 11-29-2022 13:14-0400 Diastolic blood pressure 80 mm[Hg] Shane Dedrick RESIDENTIAL SPECIALIST.[employer] Work Phone: [facility] 11-29-2022 13:14-0400 Heart rate 85 /min Shane Dedrick RESIDENTIAL SPECIALIST.[employer] Work Phone: [facility] 11-29-2022 13:14-0400 Respiratory rate 21 /min Shane Dedrick RESIDENTIAL SPECIALIST.[employer] Work Phone: [facility] 11-29-2022 13:14-0400 SaO2% (BldA) [Mass fraction] 99 % Shane Dedrick RESIDENTIAL SPECIALIST.[employer] Work Phone: [facility] 04-19-2023 13:14-0400 Systolic blood pressure 110 mm[Hg] Shane King ZHANNA Work Phone: [facility] 10-11-2022 13:49-0500 Body temperature 102.7 [degF] Ciera Athy PA-C Work Phone: [facility] 10-11-2022 13:49-0500 Body weight 92.99 kg Ciera Athy PA-C Work Phone: [facility] 10-11-2022 13:49-0500 Diastolic blood pressure 78 mm[Hg] Ciera Athy PA-C Work Phone: [facility] 10-11-2022 13:49-0500 Heart rate 116 /min Ciera Athy PA-C Work Phone: [facility] 10-11-2022 13:49-0500 Respiratory rate 18 /min Ciera Athy PA-C Work Phone: [facility] 10-11-2022 13:49-0500 SaO2% (BldA) [Mass fraction] 99 % Ciera Athy PA-C Work Phone: [facility] 10-11-2022 13:49-0500 Systolic blood pressure 112 mm[Hg] Ciera Athy PA-C Work Phone: [facility] 10-01-2022 19:49-0500 Respiratory rate 14 /min [facility] 10-01-2022 16:42-0500 Diastolic blood pressure 73 mm[Hg] [facility] 10-01-2022 16:42-0500 Heart rate 92 /min [facility] 10-01-2022 16:42-0500 Systolic blood pressure 106 mm[Hg] [facility] 10-01-2022 16:28-0500 Body height 154.94 cm [facility] 10-01-2022 16:28-0500 Body mass index (BMI) [Ratio] 37.8 kg/m2 [facility] 10-01-2022 16:28-0500 Body temperature 97 [degF] [facility] 10-01-2022 16:28-0500 Body weight 90.71 kg [facility] 10-01-2022 16:28-0500 SaO2% (BldA) [Mass fraction] 100 % [facility] 08-11-2022 09:41-0500 Body temperature 101.61 [degF] Spike Alfonso MD Work Phone: [facility] 08-11-2022 09:41-0500 Body weight 88.27 kg Spike Alfonso MD Work Phone: [facility] 08-11-2022 09:41-0500 Diastolic blood pressure 74 mm[Hg] Spike Alfonso MD Work Phone: [facility] 08-11-2022 09:41-0500 Heart rate 107 /min Spike Alfonso MD Work Phone: [facility] 08-11-2022 09:41-0500 Respiratory rate 20 /min Spike Alfonso MD Work Phone: [facility] 08-11-2022 09:41-0500 SaO2% (BldA) [Mass fraction] 99 % Spike Alfonso MD Work Phone: [facility] 08-11-2022 09:41-0500 Systolic blood pressure 116 mm[Hg] Spike Alfonso MD Work Phone: [facility] 08-03-2022 14:04-0500 Body temperature 98.3 [degF] [facility] 08-03-2022 14:04-0500 Diastolic blood pressure 52 mm[Hg] [facility] 08-03-2022 14:04-0500 Heart rate 55 /min [facility] 08-03-2022 14:04-0500 Respiratory rate 16 /min [facility] 08-03-2022 14:04-0500 SaO2% (BldA) [Mass fraction] 97 % [facility] 08-03-2022 14:04-0500 Systolic blood pressure 99 mm[Hg] [facility] 08-03-2022 11:15-0500 Body height 154.94 cm [facility] Work Phone: 08-03-2022 11:15-0500 Body mass index (BMI) [Ratio] 36.6 kg/m2 [facility] 08-03-2022 11:15-0500 Body weight 88 kg [facility] 06-08-2022 16:15-0400 Body temperature 99.8 [degF] [facility] 06-08-2022 16:11-0400 Diastolic blood pressure 71 mm[Hg] [facility] 06-08-2022 16:11-0400 Heart rate 116 /min [facility] 06-08-2022 16:11-0400 Respiratory rate 18 /min [facility] 06-08-2022 16:11-0400 SaO2% (BldA) [Mass fraction] 98 % [facility] 06-08-2022 16:11-0400 Systolic blood pressure 100 mm[Hg] [facility] 06-08-2022 13:52-0400 Body height 154.94 cm [facility] Work Phone: 06-08-2022 13:52-0400 Body mass index (BMI) [Ratio] 35.5 kg/m2 [facility] 06-08-2022 13:52-0400 Body weight 85.27 kg [facility] 06-08-2022 13:01-0400 Body weight 85.37 kg Caterina Garsia APRN.CNBenjamin Work Phone: [facility] 06-08-2022 13:01-0400 Diastolic blood pressure 68 mm[Hg] Caterina Garsia APRN.CNM Work Phone: [facility] 06-08-2022 13:01-0400 Systolic blood pressure 110 mm[Hg] Caterina Garsia APRN.CNBenjamin Work Phone: [facility] 05-10-2022 10:26-0400 Body weight 92.99 kg Loren De Dios APRN.CNBenjamin Work Phone: [facility] 05-10-2022 10:26-0400 Diastolic blood pressure 83 mm[Hg] Loren De Dios APRN.CNM Work Phone: [facility] 05-10-2022 10:26-0400 Systolic blood pressure 128 mm[Hg] Loren Plotts RESIDENTIAL SPECIALIST.CNM Work Phone: [facility] 05-02-2022 09:24-0400 Body weight 93.89 kg Loren Plotts RESIDENTIAL SPECIALIST.CNM Work Phone: [facility] 05-02-2022 09:24-0400 Diastolic blood pressure 72 mm[Hg] Loren Plotts RESIDENTIAL SPECIALIST.CNM Work Phone: [facility] 05-02-2022 09:24-0400 Systolic blood pressure 110 mm[Hg] Loren Plotts RESIDENTIAL SPECIALIST.CNM Work Phone: [facility] 04-20-2022 13:10-0400 Body weight 91.63 kg Loren Plotts RESIDENTIAL SPECIALIST.CNM Work Phone: [facility] 04-20-2022 13:10-0400 Diastolic blood pressure 74 mm[Hg] Loren Plotts RESIDENTIAL SPECIALIST.CNM Work Phone: [facility] 04-20-2022 13:10-0400 Systolic blood pressure 104 mm[Hg] Loren Plotts RESIDENTIAL SPECIALIST.CNM Work Phone: [facility] 04-12-2022 10:36-0400 Body weight 90.63 kg Angely Geronimo MD Work Phone: [facility] 04-12-2022 10:36-0400 Diastolic blood pressure 70 mm[Hg] Angely Geronimo MD Work Phone: [facility] 04-12-2022 10:36-0400 Systolic blood pressure 110 mm[Hg] Angely Geronimo MD Work Phone: [facility] 04-11-2022 09:43-0400 Body weight 90.54 kg Jaylen Ramires MD Work Phone: [facility] 04-11-2022 09:43-0400 Diastolic blood pressure 68 mm[Hg] Jaylen Ramires MD Work Phone: [facility] 04-11-2022 09:43-0400 Systolic blood pressure 114 mm[Hg] Jaylen Ramires MD Work Phone: [facility] 03-24-2022 13:23-0400 Body height 157.5 cm Jose Daniel Bridges MD Work Phone: [facility] 03-24-2022 13:23-0400 Body weight 88.8 kg Jose Daniel Bridges MD Work Phone: [facility] 03-24-2022 13:23-0400 Diastolic blood pressure 73 mm[Hg] Jose Daniel Bridges MD Work Phone: [facility] 03-24-2022 13:23-0400 Heart rate 82 /min Jose Daniel Bridges MD Work Phone: [facility] 03-24-2022 13:23-0400 Respiratory rate 22 /min Jose Daniel Bridges MD Work Phone: [facility] 03-24-2022 13:23-0400 Systolic blood pressure 115 mm[Hg] Jose Daniel Bridges MD Work Phone: [facility] 03-22-2022 15:25-0400 Body weight 89.36 kg Casi Navarro MD Work Phone: [facility] 03-22-2022 15:25-0400 Diastolic blood pressure 70 mm[Hg] Casi Navarro MD Work Phone: [facility] 03-22-2022 15:25-0400 Systolic blood pressure 108 mm[Hg] Casi Navarro MD Work Phone: [facility] 03-14-2022 10:35-0400 Body weight 87.73 kg Yuliya Jones MD Work Phone: [facility] 03-14-2022 10:35-0400 Diastolic blood pressure 60 mm[Hg] Yuliya Jones MD Work Phone: [facility] 03-14-2022 10:35-0400 Systolic blood pressure 90 mm[Hg] Yuliya Jones MD Work Phone: [facility] 02-22-2022 15:23-0400 Body weight 87.09 kg Casi Navarro MD Work Phone: [facility] 02-22-2022 15:23-0400 Diastolic blood pressure 60 mm[Hg] Casi Navarro MD Work Phone: [facility] 02-22-2022 15:23-0400 Systolic blood pressure 98 mm[Hg] Casi Navarro MD Work Phone: [facility] 01-25-2022 13:31-0400 Body weight 86.36 kg Angely Geronimo MD Work Phone: [facility] 01-25-2022 13:31-0400 Diastolic blood pressure 62 mm[Hg] Angely Geronimo MD Work Phone: [facility] 01-25-2022 13:31-0400 Systolic blood pressure 100 mm[Hg] Angely Geronimo MD Work Phone: [facility] 12-28-2021 10:47-0400 Diastolic blood pressure 64 mm[Hg] Caterina Ady GORE.CNM Work Phone: [facility] 12-28-2021 10:47-0400 Systolic blood pressure 108 mm[Hg] Caterina Garsia RESIDENTIAL SPECIALIST.CNM Work Phone: [facility] 12-02-2021 14:16-0400 Body weight 85.73 kg Nurse Wstr Work Phone: [facility] 12-02-2021 14:16-0400 Diastolic blood pressure 66 mm[Hg] Nurse Wstr Work Phone: [facility] 12-02-2021 14:16-0400 Systolic blood pressure 140 mm[Hg] Nurse Wstr Work Phone: [facility] 11-30-2021 09:17-0400 Body weight 85.91 kg Angely Geronimo MD Work Phone: [facility] 11-30-2021 09:17-0400 Diastolic blood pressure 70 mm[Hg] Angely Geronimo MD Work Phone: [facility] 11-30-2021 09:17-0400 Systolic blood pressure 102 mm[Hg] Angely Geronimo MD Work Phone: [facility] 11-09-2021 08:00-0400 Diastolic blood pressure 58 mm[Hg] No Pcp Required [facility] 11-09-2021 08:00-0400 Heart rate 81 /min No Pcp Required [facility] 11-09-2021 08:00-0400 Respiratory rate 18 /min No Pcp Required [facility] 11-09-2021 08:00-0400 SaO2% (BldA) [Mass fraction] 98 % No Pcp Required [facility] 11-09-2021 08:00-0400 Systolic blood pressure 99 mm[Hg] No Pcp Required [facility] 11-09-2021 05:23-0400 Body height 154.9 cm No Pcp Required [facility] 11-09-2021 05:23-0400 Body temperature 99.14 [degF] No Pcp Required [facility] 11-09-2021 05:23-0400 Body weight 87 kg No Pcp Required [facility] 10-03-2021 17:51-0500 Diastolic blood pressure 67 mm[Hg] No Pcp Required [facility] 10-03-2021 17:51-0500 Heart rate 78 /min No Pcp Required [facility] 10-03-2021 17:51-0500 Respiratory rate 18 /min No Pcp Required [facility] 10-03-2021 17:51-0500 SaO2% (BldA) [Mass fraction] 99 % No Pcp Required [facility] 10-03-2021 17:51-0500 Systolic blood pressure 111 mm[Hg] No Pcp Required [facility] 10-03-2021 13:27-0500 Body height 154.9 cm No Pcp Required [facility] 10-03-2021 13:27-0500 Body temperature 98.24 [degF] No Pcp Required [facility] 10-03-2021 13:27-0500 Body weight 86.4 kg No Pcp Required [facility] 03-13-2021 08:17-0400 Body temperature 97.39 [degF] Kaylee Pérez MD Work Phone: [facility] Work Phone: 03-13-2021 08:17-0400 Diastolic blood pressure 67 mm[Hg] Kaylee Pérez MD Work Phone: [facility] Work Phone: 03-13-2021 08:17-0400 Heart rate 77 /min Kaylee Pérez MD Work Phone: [facility] Work Phone: 03-13-2021 08:17-0400 Respiratory rate 16 /min Kaylee Pérez MD Work Phone: [facility] Work Phone: 03-13-2021 08:17-0400 SaO2% (BldA) [Mass fraction] 97 % Kaylee Pérez MD Work Phone: [facility] Work Phone: 03-13-2021 08:17-0400 Systolic blood pressure 97 mm[Hg] Kaylee Pérez MD Work Phone: [facility] Work Phone: 02-15-2021 07:53-0400 Body mass index (BMI) [Ratio] 27.2 kg/m2 Kaylee Pérez MD Work Phone: [facility] Work Phone: 02-15-2021 07:53-0400 Body weight 81.15 kg Kaylee Pérez MD Work Phone: [facility] Work Phone: 01-19-2021 02:45-0400 Body height 172.7 cm Kaylee Pérez MD Work Phone: [facility] Work Phone: Encounters Encounter Date Encounter Type Care Provider Facility Start: 01-01-2025 End: 01-01-2025 ambulatory MANJIT TIJERINA Facility:[facility] Start: 06-26-2024 End: 06-26-2024 ambulatory MANJIT TIJERINA Facility:[facility] Start: 06-26-2024 End: 06-26-2024 Patient encounter procedure Candido Whalen APRN.CNP Work Phone: [facility] Comment on above: Sore throat (Primary Dx); Acute cough Start: 06-21-2024 End: 06-21-2024 Emergency department patient visit No Primary Care Physician Facility:[facility] Start: 12-08-2023 ambulatory Monique CAIN E [employer] Comment on above: Patient Update Start: 12-08-2023 Telephone encounter Candido Whalen APRN.CNP Work Phone: [facility] Comment on above: Results; Orders Results Start: 12-07-2023 End: 12-07-2023 Patient encounter procedure Candido Whalen APRN.CNP Work Phone: [facility] Comment on above: Dysuria (Primary Dx) ; Urinary frequency; Sore throat Start: 11-05-2023 End: 11-05-2023 Emergency department patient visit [facility] Work Phone: Start: 08-26-2023 End: 08-26-2023 Emergency department patient visit [facility] Work Phone: Start: 05-12-2023 End: 05-12-2023 Emergency department patient visit [facility] Work Phone: Start: 03-01-2023 End: 03-01-2023 Patient encounter procedure Casi Navarro MD Work Phone: OB/Gynecology Comment on above: Yeast dermatitis (Pr imary Dx); Vaginal discharge; Screening examination for STD (sexually transmitted disease) Start: 11-29-2022 End: 11-29-2022 Patient encounter procedure Shane Tse APRN.[employer] Work Phone: [facility] Comment on above: Burning with urinati on (Primary Dx) Start: 10-11-2022 End: 10-11-2022 Patient encounter procedure Ciera Huerta PA-C Work Phone: [facility] Comment on above: Sore throat (Primary Dx); Suspected COVID-19 virus infection Start: 10-01-2022 End: 10-01-2022 Emergency department patient visit [facility] Start: 08-11-2022 End: 08-11-2022 Patient encounter procedure Spike Alfonso MD Work Phone: [facility] Comment on above: Sore throat (Primary Dx); Exudative tonsillitis; Fever, unspecified fever cause Start: 08-09-2022 Telephone encounter Casi Navarro MD Work Phone: OB/Gynecology Comment on above: Results Start: 08-03-2022 End: 08-03-2022 Admission to same day surgery center [facility] Comment on above: surgery Start: 08-03-2022 E-mail encounter fro m caregiver Casi Navarro MD Work Phone: [facility] Start: 08-03-2022 End: 08-03-2022 ambulatory [facility] Work Phone: Start: 06-08-2022 End: 06-08-2022 Emergency department patient visit [facility] Start: 06-08-2022 End: 06-08-2022 Patient encounter procedure Caterina Garsia APRN.CNM Work Phone: OB/Gynecology Comment on above: care and examination (Primary Dx); control counseling Start: 05-10-2022 End: 05-10-2022 ambulatory Leelee Up MD Work Phone: Pediatric Urology Comment on above: renal anomaly, single gestation (Primary Dx) Start: 05-10-2022 End: 05-10-2022 Telemedicine consultation with patient Leelee Up MD Work Phone: [facility] Start: 05-10-2022 End: 05-10-2022 Patient encounter procedure Loren De Dios APRN.CNM Work Phone: OB/Gynecology Comment on above: 38 weeks gestation o f (Primary Dx); Pyelectasis of fetus on ultrasound; High-risk in third trimester Start: 05-04-2022 Orders Only Yuliya Jones MD Work Phone: Maternal [facility] Comment on above: anomaly necess itating delivery, single or unspecified fetus (Primary Dx) Known anomaly, antepartum, single or unspecified fetus (Primary Dx) Appointment Start: 05-02-2022 End: 05-02-2022 Patient encounter procedure Loren De Dios APRN.RAYMOND Work Phone: OB/Gynecology Comment on above: 37 weeks gestation o f (Primary Dx); Pyelectasis of fetus on ultrasound; High-risk in third trimester Start: 04-25-2022 End: 04-25-2022 Patient encounter procedure Loren De Dios APRN.RAYMOND Work Phone: OB/Gynecology Comment on above: 36 weeks gestation o f (Primary Dx); Pyelectasis of fetus on ultrasound; High-risk in third trimester Start: 04-20-2022 End: 04-20-2022 Patient encounter procedure Loren De Dios APRN.RAYMOND Work Phone: OB/Gynecology Comment on above: 35 weeks gestation o f (Primary Dx); Decreased movements in third trimester, single or unspecified fetus Start: 04-12-2022 End: 04-12-2022 Patient encounter procedure Angely Geronimo MD Work Phone: OB/Gynecology Comment on above: 34 weeks gestation o f (Primary Dx); Supervision of other high risk , antepartum; Pyelectasis of fetus on ultrasound; History of herpes genitalis Start: 04-11-2022 Telephone encounter Jessica Henry RN Maternal Medicine Comment on above: Appointment Orders Start: 04-11-2022 End: 04-11-2022 Patient encounter procedure Sanjay Whalen MD Work Phone: OB/Gynecology Comment on above: Supervision of other high risk , antepartum (Primary Dx); 34 weeks gestation of ; APPOINTMENT CANCELLED Abnormal ultra sound (Primary Dx); Obesity complicating , third trimester Start: 03-24-2022 End: 03-24-2022 Patient encounter procedure Jose Daniel Bridges MD Work Phone: Pediatric Surgery Comment on above: complicate d by GI abnormality, not applicable or unspecified fetus (Primary Dx); renal anomaly, single gestation Start: 03-24-2022 End: 03-24-2022 Subsequent hospital visit by physician Mri 3 Radio Main Q (I-Stat/1.5t/3t) Work Phone: MRI Q Comment on above: 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] Start: 03-22-2022 End: 03-22-2022 Patient encounter procedure Casi Navarro MD Work Phone: OB/Gynecology Comment on above: Pyelectasis of fetus on ultrasound (Primary Dx); History of premature rupture of membranes (PPROM); 31 weeks gestation of Start: 03-21-2022 ambulatory Jessica Henry RN [facility] Start: 03-21-2022 Coordination of care plan Jessica rodriguez RN Maternal Medicine Comment on above: Care Plan (Car e Coordination) Start: 03-15-2022 Manual pelvic examination Ligia Jones MD Work Phone: Maternal Medicine Comment on above: Hydronephrosis with ureteropelvic junction (UPJ) obstruction Start: 03-15-2022 Telephone encounter Jessica Henry RN Maternal Medicine Comment on above: Establish Care (feta l care) Start: 03-14-2022 End: 03-14-2022 Patient encounter procedure Yuliya Jones MD Work Phone: Maternal Medicine Comment on above: Pyelectasis of fetus on ultrasound (Primary Dx); Supervision of other high risk , antepartum; 30 weeks gestation of Start: 03-01-2022 Orders Only Casi Navarro MD Work Phone: OB/Gynecology Comment on above: Encounter for repeat ultrasound of pyelectasis, antepartum, single or unspecified fetus (Primary Dx); Pyelectasis of fetus on ultrasound Start: 02-22-2022 End: 02-22-2022 Patient encounter procedure Casi Navarro MD Work Phone: OB/Gynecology Comment on above: Pyelectasis of fetus on ultrasound (Primary Dx); History of premature rupture of membranes (PPROM); Obesity in ; 27 weeks gestation of ; Need for vaccination Encounter for repeat ultrasound of pyelectasis in [place] , antepartum (Primary Dx); 27 weeks gestation of Start: 01-25-2022 End: 01-25-2022 Patient encounter procedure Angely Geronimo MD Work Phone: OB/Gynecology Comment on above: 23 weeks gestation o f (Primary Dx); Supervision of other high risk , antepartum; Encounter for repeat ultrasound of pyelectasis, antepartum, single or unspecified fetus Start: 12-28-2021 End: 12-28-2021 Patient encounter procedure Caterina Garsia APRN.CNM Work Phone: OB/Gynecology Comment on above: 19 weeks gestation o f (Primary Dx); Screen for STD (sexually transmitted disease); Supervision of other high risk , antepartum; History of premature rupture of membranes (PPROM) Start: 12-02-2021 End: 12-02-2021 Nursing evaluation of patient and report Nurse Manager [facility] Work Phone: OB/Gynecology Comment on above: History of p remature rupture of membranes (PPROM) (Primary Dx) Start: 11-30-2021 End: 11-30-2021 Patient encounter procedure Angely Geronimo MD Work Phone: OB/Gynecology Comment on above: 15 weeks gestation o f (Primary Dx); History of premature rupture of membranes (PPROM); Encounter for supervision of other normal in second trimester; Headaches Start: 11-10-2021 Telephone encounter Yuliya holloway MD Work Phone: Maternal Medicine Comment on above: sequential results Start: 11-09-2021 End: 11-09-2021 Emergency department patient visit Primitivo Bauer [facility] 10 Start: 10-03-2021 End: 10-03-2021 Emergency department patient visit Francesca Sierra [facility] Emergency 12 Start: 01-19-2021 End: 03-13-2021 Evaluation and management of inpatient Kaylee Pérez MD Work Phone: [facility] Procedures Date Procedure Procedure Detail Performing Clinician Start: 06-26-2024 STREP A MOLECULAR (POC) Candido Whalen RESIDENTIAL SPECIALIST.[employer] Work Phone: Start: 12-07-2023 STREP A MOLECULAR (POC) [facility] Provider Start: 12-07-2023 Urnls dip stick/tablet rgnt auto w/o microscopy Candido Whalen RESIDENTIAL SPECIALIST.[employer] WEAVER Work Phone: Start: 11-29-2022 Urnls dip stick/tablet rgnt auto w/o microscopy Ciera Huerta PA-C Work Phone: Start: 10-11-2022 STREP A MOLECULAR (POC) Shane CROW RN.[employer]ER Work Phone: Start: 10-01-2022 CT of head without contrast Start: 08-11-2022 COVID WITH FLUA+B, ROUTINE Spike Alfonso MD Work Phone: Start: 08-03-2022 Laparoscopic salpingectomy Start: 05-10-2022 URINE OB DIP B/O Loren De Dios RESIDENTIAL SPECIALIST.CNM Work Phone: Start: 05-02-2022 URINE OB DIP B/O Loren De Dios RESIDENTIAL SPECIALIST.CNM Work Phone: Start: 04-20-2022 URINE OB DIP B/O Loren De Dios RESIDENTIAL SPECIALIST.CNM Work Phone: Start: 04-12-2022 URINE OB DIP B/O Angely Geronimo MD Work Phone: Start: 04-11-2022 Us preg uterus after 1st trimest 08/13 gestation Jaylen Ramires MD Work Phone: Start: 03-24-2022 mri w/placntl matrnl plvc img sing/1st ges Yuliya Jones MD Work Phone: Start: 03-22-2022 URINE OB DIP B/O Casi Elyssa mayers MD Work Phone: Start: 02-22-2022 URINE OB DIP B/O Casi Elyssa mayers MD Work Phone: Start: 02-22-2022 Us preg uterus after 1st trimest 08/13 gestation Angely Geronimo MD Work Phone: Start: 01-25-2022 URINE OB DIP B/O Angely Geronimo MD Work Phone: Start: 11-30-2021 URINE OB DIP B/O Angely Geronimo MD Work Phone: Start: 03-12-2021 Blood gases any combination ph pco2 po2 co2 hco3 Kaylee Pérez MD Work Phone: Start: 03-10-2021 RADIOLOGY REPORT 3m Scanning Start: 03-10-2021 Urnls dip stick/tablet rgnt auto w/o microscopy Anna Burnettothe DO Work Phone: Start: 03-10-2021 Culture bacterial quanttative colony count urine Anna T Eliseo DO Work Phone: Start: 03-10-2021 biophysical profile w/o non-stress testing Beto Callahan DO Work Phone: Start: 2021 Antibody screen Kaylee Pérez MD Work Phone: Start: 2021 Blood typing serologic abo Simon Green MD Work Phone: Start: 03-07-2021 biophysical profile w/o non-stress testing Beto Callahan DO Work Phone: Start: 03-06-2021 Antibody screen Kaylee Pérez MD Work Phone: Start: 03-06-2021 Blood typing serologic abo José Miguel Pace DO Work Phone: Start: 03-03-2021 Us preg uterus real time f/u trnsabdl per fetus Spike Anderson MD Work Phone: Start: 03-03-2021 Antibody screen Kaylee Pérez MD Work Phone: Start: 03-03-2021 Blood typing serologic abo Simon Green MD Work Phone: Start: 02-28-2021 biophysical profile w/o non-stress testing Rosemarie Barillas MD Work Phone: Start: 02-28-2021 Antibody screen Kaylee Pérez MD Work Phone: Start: 02-28-2021 Blood typing serologic isma Green MD Work Phone: Start: 02-25-2021 Antibody screen Kaylee Pérez MD Work Phone: Start: 02-25-2021 Blood typing serologic abo Urmila Wright DO Work Phone: Start: 02-24-2021 biophysical profile w/o non-stress testing Rosemarie Barillas MD Work Phone: Start: 02-21-2021 biophysical profile w/o non-stress testing Rosemarie Barillas MD Work Phone: Start: 02-21-2021 Antibody screen Kaylee Pérez MD Work Phone: Start: 02-21-2021 Blood typing serologic abo Urmila Wright DO Work Phone: Start: 02-18-2021 Cul bact xcpt urine blood/stool aerobic isol Anna Mary Beth Eliseo DO Work Phone: Start: 02-18-2021 Blood count complete auto&auto difrntl wbc Anna T Eliseo DO Work Phone: Start: 02-18-2021 Antibody screen Kaylee Pérez MD Work Phone: Start: 02-18-2021 Blood typing serologic abo Urmila Wright DO Work Phone: Start: 02-15-2021 biophysical profile w/o non-stress testing Rosemarie Barillas MD Work Phone: Start: 02-15-2021 Antibody screen Kaylee Pérez MD Work Phone: Start: 02-15-2021 Blood typing serologic abo Urmila C Smerker DO Work Phone: Start: 02-14-2021 End: 02-14-2021 nonstress test Francesca López DO Work Phone: Start: 02-12-2021 Antibody screen Kaylee Pérez MD Work Phone: Start: 02-12-2021 Blood typing serologic abo Urmila C Smerker DO Work Phone: Start: 02-10-2021 Us preg uterus real time f/u trnsabdl per fetus Spike Anderson MD Work Phone: Start: 02-09-2021 Antibody screen Kaylee Pérez MD Work Phone: Start: 02-09-2021 Blood typing serologic abo Urmila C Smerker DO Work Phone: Start: 02-07-2021 biophysical profile w/o non-stress testing Spike Anderson MD Work Phone: Start: 02-06-2021 Antibody screen Kaylee Pérez MD Work Phone: Start: 02-06-2021 Blood typing serologic abo Urmila C Smerker DO Work Phone: Start: 02-03-2021 biophysical profile w/o non-stress testing Spike Anderson MD Work Phone: Start: 02-03-2021 Antibody screen Kaylee Pérez MD Work Phone: Start: 02-03-2021 Blood typing serologic abo Urmila C Smerker DO Work Phone: Start: 01-31-2021 biophysical profile w/o non-stress testing Spike Anderson MD Work Phone: Start: 01-31-2021 Antibody screen Kaylee Pérez MD Work Phone: Start: 01-31-2021 Blood typing serologic abo Urmila Wright DO Work Phone: Start: 01-28-2021 Antibody screen Kaylee Pérez MD Work Phone: Start: 01-28-2021 Blood typing serologic abo Urmila Wright DO Work Phone: Start: 01-27-2021 biophysical profile w/o non-stress testing Spike Anderson MD Work Phone: Start: 01-25-2021 Antibody screen Kaylee Pérez MD Work Phone: Start: 01-25-2021 Blood typing serologic abo Sarahicarlos Eduardo DO Work Phone: Start: 01-24-2021 biophysical profile w/o non-stress testing Spike Anderson MD Work Phone: Start: 01-23-2021 Gluc bld gluc mntr dev cleared fda spec home use Kaylee Pérez MD Work Phone: Start: 01-23-2021 Gluc bld gluc mntr dev cleared fda spec home use Kaylee Pérez MD Work Phone: Start: 01-23-2021 Gluc bld gluc mntr dev cleared fda spec home use Kaylee Pérez MD Work Phone: Start: 01-23-2021 Gluc bld gluc mntr dev cleared fda spec home use Kaylee Pérez MD Work Phone: Start: 01-22-2021 Gluc bld gluc mntr dev cleared fda spec home use Kaylee Pérez MD Work Phone: Start: 01-22-2021 Gluc bld gluc mntr dev cleared fda spec home use Kaylee Pérez MD Work Phone: Start: 01-22-2021 Gluc bld gluc mntr dev cleared fda spec home use Kaylee Pérez MD Work Phone: Start: 01-22-2021 Antibody screen Kaylee Pérez MD Work Phone: Start: 01-22-2021 Blood typing serologic abo Urmila Wright DO Work Phone: Start: 01-21-2021 Gluc bld gluc mntr dev cleared fda spec home use Kaylee Pérez MD Work Phone: Start: 01-21-2021 Gluc bld gluc mntr dev cleared fda spec home use Kaylee Pérez MD Work Phone: Start: 01-21-2021 Gluc bld gluc mntr dev cleared fda spec home use Kaylee Pérez MD Work Phone: Start: 01-21-2021 Gluc bld gluc mntr dev cleared fda spec home use Kaylee Pérez MD Work Phone: Start: 01-21-2021 nonstress test Spike Anderson MD Work Phone: Start: 01-20-2021 Gluc bld gluc mntr dev cleared fda spec home use Kaylee Pérez MD Work Phone: Start: 01-20-2021 Gluc bld gluc mntr dev cleared fda spec home use Kaylee Pérez MD Work Phone: Start: 01-20-2021 biophysical profile w/o non-stress testing Spike Anderson MD Work Phone: Start: 01-20-2021 Gluc bld gluc mntr dev cleared fda spec home use Kaylee Pérez MD Work Phone: Start: 01-20-2021 Gluc bld gluc mntr dev cleared fda spec home use Kaylee Pérez MD Work Phone: Start: 01-19-2021 Gluc bld gluc mntr dev cleared fda spec home use Kaylee Pérez MD Work Phone: Start: 01-19-2021 Gluc bld gluc mntr dev cleared fda spec home use Kaylee Pérez MD Work Phone: Start: 01-19-2021 Gluc bld gluc mntr dev cleared fda spec home use Kaylee Pérez MD Work Phone: Start: 01-19-2021 Us preg uterus real time f/u trnsabdl per fetus Urmila Wright DO Work Phone: Start: 01-19-2021 Culture bacterial quanttative colony count urine Urmila Wright DO Work Phone: Start: 01-19-2021 Antibody screen Kaylee Pérez MD Work Phone: Start: 01-19-2021 Blood count complete automated Urmila Wright DO Work Phone: Start: 01-19-2021 Blood typing serologic abo Urmila Wright DO Work Phone: Start: 01-19-2021 Iadna multiple organisms direct probe tq Urmila Wright DO Work Phone: Start: 01-19-2021 TRICHOMONAS VAGINALI, MOLECULAR Urmila Wright DO Work Phone: Start: 09-07-2020 C. TRACHOMATIS, EXTERNAL RESULT Historical Provider Start: 09-07-2020 HEPATITIS B, EXTERNAL RESULT Historical Provider Start: 09-07-2020 HIV, EXTERNAL RESULT Historical Provider Start: 09-07-2020 N. GONORRHOEAE, EXTERNAL RESULT Historical Provider Start: 09-07-2020 RPR, EXTERNAL RESULT Historical Provider Start: 09-07-2020 RUBELLA TITER, EXTERNAL RESULT Historical Provider Start: 01-04-2017 History of cholecystectomy S/P cholecystectomy Yuliya Jones MD Work Phone: History of cholecystectomy Hx laparoscopic cholecystectomy Respiratory syncytia l virus antigen assay Respiratory syncytia l virus antigen assay SARS-CoV-2 & FLU Ant igen (Rapid) SARS-CoV-2 & FLU Ant igen (Rapid) SARS-CoV-2 & FLU Ant igen (Rapid) Plan of Treatment Date Care Activity Detail Author Start: 02-23-2032 Urine microalbumin profile [facility] Start: 03-21-2027 Urine microalbumin profile DTAP,TDAP,TD (2 - Td or Tdap) [facility] Start: 12-06-2024 GC (Gonorrhea) Scree lady (18-24) GC (Gonorrhea) Screening () [facility] Start: 12-06-2024 Screening for Chlamy brittni trachomatis Chlamydia Screening () [facility] Start: 10-05-2024 PAP TESTING PAP TESTING [facility] Start: 10-05-2024 Screening for malign ant neoplasm of cervix [facility] Start: 04-13-2024 Covid-19 Vaccine ( season) Covid-19 Vaccine () [facility] Start: 04-13-2024 Influenza vaccination [facility] Start: 03-01-2024 GC (Gonorrhea) Scree lady (18-24) GC (Gonorrhea) Screening () [facility] Start: 03-01-2024 Screening for Chlamy brittni trachomatis Chlamydia Screening () [facility] Start: 11-05-2023 [facility] Start: 08-26-2023 [facility] Start: 08-13-2023 Behavioral Health Screening Behavioral Health Screening [facility] Start: 05-12-2023 [facility] Start: 05-12-2023 Emergency department visit limited/minor prob EMR DPT VST MAYX REQ PHY/QHP [facility] Start: 04-13-2023 Covid-19 Vaccine ( season) Covid-19 Vaccine () [facility] Start: 04-13-2023 Influenza vaccination C [facility] Start: 12-28-2022 CHLAMYDIA SCREENING () CHLAMYDIA SCREENING () [facility] Start: 12-28-2022 GC (GONORRHEA) SCREE LADY (18-24) GC (GONORRHEA) SCREENING () [facility] Start: 10-11-2022 End: 10-25-2022 Influenza virus A and B RNA and SARS-CoV-2 (COVID-19) N gene panel - Respiratory specimen by LANNY with probe detection [facility] Work Phone: Comment on above: Expected: 10/11/2022 , Expires: 10/25/2022 Start: 08-13-2022 DEPRESSION ASSESSMENT DEPRESSION ASS ESSMENT [facility] Start: 08-03-2022 Anesthesia intraperitoneal lower abd w/laps nos ANESTH SURG LOWER ABDOMEN [facility] Start: 08-03-2022 Laparoscopy w/rmvl adnexal structures LAPAROSCOPY REMOVE ADNEXA [facility] Start: 08-03-2022 Ambulation without limitation [facility] Start: 08-03-2022 Medical regimen orde rs management [facility] Start: 08-03-2022 Medication education [facility] Start: 08-03-2022 Patient discharge [facility] Start: 08-03-2022 Procedure discontinued [facility] Start: 08-03-2022 Taking patient vital signs [facility] Start: 08-03-2022 Vital signs measurements [facility] Start: 08-03-2022 [facility] Start: 06-08-2022 [facility] Start: 05-14-2022 INDUCTION L&D INDUCTION L&D Procedures Routine anomaly necessitating delivery, single or unspecified fetus Expected: 05/14/2022 [facility] Work Phone: Comment on above: Expected: 05/14/2022 Start: 04-13-2022 Influenza vaccination [facility] Start: 01-25-2022 End: 03-27-2022 CBC panel - Blood by Automated count CBC Lab Routine 23 weeks gestation of Supervision of other high risk , antepartum Expected: 01/25/2022, Expires: 03/27/2022 [facility] Work Phone: Comment on above: Expected: 01/25/2022 , Expires: 03/27/2022 Start: 01-25-2022 End: 03-27-2022 GEST GLUC SCREEN, 1-HR, 50 GM, NON-FASTING GEST GLUC SCREEN, 1-HR, 50 GM, NON-FASTING Lab Routine 23 weeks gestation of Supervision of other high risk , antepartum Expected: 01/25/2022, Expires: 03/27/2022 [facility] Work Phone: Comment on above: Expected: 01/25/2022 , Expires: 03/27/2022 Start: 01-25-2022 End: 03-27-2022 SYPHILIS TOTAL W/REFLEX SYPHILIS TOTAL W/REFLEX Lab Routine 23 weeks gestation of Supervision of other high risk , antepartum Expected: 01/25/2022, Expires: 03/27/2022 [facility] Work Phone: Comment on above: Expected: 01/25/2022 , Expires: 03/27/2022 Start: 12-24-2021 CHLAMYDIA SCREENING (18-24) CHLAMYDIA SCREENING (18-24) [facility] Start: 12-24-2021 GC (GONORRHEA) SCREE LADY (18-24) GC (GONORRHEA) SCREENING (18-24) [facility] Start: 08-13-2021 DEPRESSION ASSESSMENT DEPRESSION ASS ESSMENT [facility] Start: 04-13-2021 Influenza vaccination C [facility] Start: 2018 Anxiety Screening Anxiety Screening [facility] Start: 2018 Depression Screening Depression Scre ening [facility] Start: 2016 Meningococcal B Vacc ine: Consider Based On Risk (1 of 2 - Patient Seeks Protection) Meningococcal B Vaccine: Consider Based On Risk (1 of 2 - Patient Seeks Protection) [facility] Start: 2016 MENINGOCOCCAL B: 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 (1 of 2 - Patient Seeks Protection) MENINGOCOCCAL B: Consider based on risk (1 of 2 - Patient Seeks Protection) [facility] Start: 2014 PEDS TO ADULT TRANSI TION ANNUAL ASSESSMENT PEDS TO ADULT TRANSITION ANNUAL ASSESSMENT [facility] Start: 2012 Adult depression screening assessment DEPRESSION SCREENING [facility] Start: 2012 COVID-19 Vaccine (1) COVID-19 Vaccin e (1) [facility] Work Phone: Start: 2012 PEDS TO ADULT TRANSI TION INITIAL DISCUSSION PEDS TO ADULT TRANSITION INITIAL DISCUSSION [facility] Start: 2011 HPV VACCINE (1 - 2-d ose series) HPV VACCINE (1 - 2-dose series) [facility] Start: 2010 MENINGOCOCCAL B: 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 (1 of 2 - Risk Bexsero 2-dose series) MENINGOCOCCAL B: Consider based on risk (1 of 2 - Risk Bexsero 2-dose series) [facility] Start: 2009 HPV VACCINE (1 - 2-d ose series) HPV VACCINE (1 - 2-dose series) [facility] Start: 2005 COVID-19 VACCINE (#1) COVID-19 VACCI NE (#1) [facility] Start: 2005 COVID-19 VACCINE (1) COVID-19 VACCIN E (1) [facility] Start: 2000 COVID-19 VACCINE (#1) COVID-19 VACCI NE (#1) [facility] Start: 2000 HEPATITIS B (1 of 3 - 3-dose series) HEPATITIS B (1 of 3 - 3-dose series) [facility] Bacteria identified in Urine by Culture URINE CULTURE Microbiology Routine Burning with urination 11/29/2022 2:21 PM EDT [facility] Work Phone: Bacteria identified in Urine by Culture URINE CULTURE Microbiology Routine Urinary frequency 12/07/2023 9:50 AM T [facility] Work Phone: BACTERIAL VAGINOSIS NAAT BACTERI AL VAGINOSIS NAAT Lab Routine Vaginal discharge 03/01/2023 10:54 AM [facility] Work Phone: BACTERIAL VAGINOSIS NAAT BACTERI AL VAGINOSIS NAAT Lab Routine Dysuria 12/07/2023 9:50 AM EDT [facility] DULCE MARIA/TRICHOMONAS NAAT DULCE MARIA /TRICHOMONAS NAAT Microbiology Routine Vaginal discharge 03/01/2023 10:54 AM T [facility] Work Phone: DULCE MARIA/TRICHOMONAS NAAT DULCE MARIA /TRICHOMONAS NAAT Lab Routine Dysuria 12/07/2023 9:50 AM T [facility] Chlamydia trachomatis+Neisseria gonorrhoeae DNA [Presence] in Unspecified specimen by LANNY with probe detection GC/CHLAMYDIA DNA DET Lab Routine 19 weeks gestation of Screen for STD (sexually transmitted disease) 12/28/2021 11:28 AM T [facility] Work Phone: Chlamydia trachomatis+Neisseria gonorrhoeae DNA [Presence] in Unspecified specimen by LANNY with probe detection GONORRHEA/CHLAMYDIA NAAT Lab Routine Vaginal discharge Screening examination for STD (sexually transmitted disease) 03/01/2023 10:54 AM EDT [facility] Work Phone: Chlamydia trachomatis+Neisseria gonorrhoeae DNA [Presence] in Unspecified specimen by LANNY with probe detection GONORRHEA/CHLAMYDIA NAAT Lab Routine Dysuria 12/07/2023 9:50 AM EDT [facility] End: 04-14-2023 mri w/placntl matrnl plvc img sing/1st ges MRI FETUS/PLACENTA WO IVCON Radiology Routine Hydronephrosis with ureteropelvic junction (UPJ) obstruction 1 Occurrences starting 03/15/2022 until 04/14/2023 [facility] Work Phone: Comment on above: 1 Occurrences starti ng 03/15/2022 until 04/14/2023 End: 05-26-2022 nonstress test NON-STRESS TEST Procedures Routine 34 weeks gestation of Supervision of other high risk , antepartum Once per week for 5 Occurrences starting 04/12/2022 until 05/26/2022 [facility] Work Phone: Comment on above: Once per week for 5 Occurrences starting 04/12/2022 until 05/26/2022 End: 05-12-2022 INDUCTION L&D INDUCTION L&D Procedures Routine Known anomaly, antepartum, single or unspecified fetus 1 Occurrences starting 05/04/2022 until 05/12/2022 [facility] Work Phone: Comment on above: 1 Occurrences starti ng 05/04/2022 until 05/12/2022 OBSTETRIC ULTRASOUND WHI OBSTETR IC ULTRASOUND [facility] Anc Imaging Routine 23 weeks gestation of Supervision of other high risk , antepartum Encounter for repeat ultrasound of pyelectasis, antepartum, single or unspecified fetus 1 Occurrences starting 01/25/2022 [facility] Work Phone: Comment on above: 1 Occurrences starti ng 01/25/2022 OBSTETRIC ULTRASOUND WHI OBSTETR IC ULTRASOUND [facility] Anc Imaging Routine 27 weeks gestation of Pyelectasis of fetus on ultrasound Ordered: 02/22/2022 [facility] Work Phone: Comment on above: Ordered: 02/22/2022 OBSTETRIC ULTRASOUND WHI OBSTETR IC ULTRASOUND [facility] Anc Imaging Routine Pyelectasis of fetus on ultrasound Ordered: 04/11/2022 [facility] Work Phone: Comment on above: Ordered: 04/11/2022 Patient Education [facility] Work Phone: Patient referral [facility] Work Phone: ROUTINE, GR OUP B STREP PCR ROUTINE, GROUP B STREP PCR Microbiology Routine 36 weeks gestation of Pyelectasis of fetus on ultrasound High-risk in third trimester Ordered: 04/25/2022 [facility] Work Phone: Comment on above: Ordered: 04/25/2022 STREP A MOLECULAR (POC) STREP A MOLECULAR (POC) Microbiology Routine Sore throat Ordered: 08/11/2022 [facility] Work Phone: Comment on above: Ordered: 08/11/2022 URINE OB DIP B/O URINE OB DIP B/ O Lab Routine 19 weeks gestation of Ordered: 12/28/2021 [facility] Work Phone: Comment on above: Ordered: 12/28/2021 URINE OB DIP B/O URINE OB DIP B/ O Lab Routine Supervision of other high risk , antepartum 34 weeks gestation of Ordered: 04/11/2022 [facility] Work Phone: Comment on above: Ordered: 04/11/2022 URINE OB DIP B/O URINE OB DIP B/ O Lab Routine 36 weeks gestation of Pyelectasis of fetus on ultrasound High-risk in third trimester Ordered: 04/25/2022 [facility] Work Phone: Comment on above: Ordered: 04/25/2022 End: 02-18-2021 US BIOPHYSICAL PROFILE WO NON STRESS TESTING US BIOPHYSICAL PROFILE WO NON STRESS TESTING Imaging Routine Once for 1 Occurrences starting 02/18/2021 until 02/18/2021 [facility] Work Phone: Comment on above: Once for 1 Occurrenc es starting 02/18/2021 until 02/18/2021 End: 03-17-2021 US BIOPHYSICAL PROFILE WO NON STRESS TESTING US BIOPHYSICAL PROFILE WO NON STRESS TESTING Imaging Routine Weekly for 3 Occurrences starting 03/03/2021 until 03/17/2021, 2 completed [facility] Work Phone: Comment on above: Weekly for 3 Occurre nces starting 03/03/2021 until 03/17/2021, 2 completed End: 03-28-2021 US BIOPHYSICAL PROFILE WO NON STRESS TESTING US BIOPHYSICAL PROFILE WO NON STRESS TESTING Imaging Routine Weekly for 4 Occurrences starting 03/07/2021 until 03/28/2021, 1 completed [facility] Work Phone: Comment on above: Weekly for 4 Occurre nces starting 03/07/2021 until 03/28/2021, 1 completed US BIOPHYSICAL PROFILE WO NON STRESS TESTING US BIOPHYSICAL PROFILE WO NON STRESS TESTING Imaging Routine 02/18/2021 10:07 AM EDT [facility] Work Phone: [facility] Immunizations Immunization Date Immunization Notes Care Provider Heena edwards 02-22-2022 tetanus toxoid, redu yulia diphtheria toxoid, and acellular pertussis vaccine, adsorbed Casi Navarro MD Work Phone: [facility] 03-12-2021 diphtheria, tetanus toxoids and acellular pertussis vaccine, unspecified formulation Kaylee Pérez MD Work Phone: [facility] Work Phone: 03-12-2021 measles, mumps and rubella virus vaccine Kaylee Pérez MD Work Phone: [facility] Work Phone: 02-20-2021 tetanus toxoid, redu yulia diphtheria toxoid, and acellular pertussis vaccine, adsorbed Kaylee Pérez MD Work Phone: [facility] Work Phone: 05-14-2017 influenza, injectabl e, quadrivalent, preservative free Yuliya Jones MD Work Phone: [facility] 05-14-2017 influenza, seasonal, injectable [facility] 05-14-2017 influenza virus vaccine, unspecified formulation Candido Whalen APRN.[employer] Work Phone: [facility] 03-21-2017 tetanus toxoid, redu yulia diphtheria toxoid, and acellular pertussis vaccine, adsorbed Yuliya Jones MD Work Phone: [facility] Payers Date Payer Category Payer Unknown [id number] 2023 Self-pay [id number] 2013 Medicaid [employer] [id number] 2013-Present [phone] [address] [place] [address] Medicaid [id number] 2013 Medicaid [id number] 2013 Unknown [id number] 2013 Unknown [id number] Unknown [employer] Unknown [id number] Unknown [id number] Unknown [id number] Social History Date Type Detail Facility Start: 03-12-2021 Tobacco smoking status NHIS Former smoker [facility] Work Phone: Start: 03-12-2021 End: 05-10-2022 Tobacco use and exposure Never used [facility] Start: 03-12-2021 Alcohol intake Ex-drinker (finding) [facility] Work Phone: Start: 03-11-2021 Tobacco Comment quit at 17 y/o [facility] Work Phone: Start: 2000 Sex Assigned At Not on file [facility] Work Phone: Start: 10-23-2021 End: 05-12-2022 Exposure to SARS-CoV-2 (event) Not sure [facility] Start: 06-08-2022 End: 11-05-2023 Tobacco smoking consumption unknown [facility] Start: 12-09-2013 End: 05-10-2022 Tobacco smoking status NHIS Never smoked tobacco [facility] Work Phone: Start: 10-05-2021 End: 06-26-2024 Alcohol intake Current non-drinker of alcohol (finding) [facility] Start: 08-26-2021 [facility] Start: 2000 Sex Assigned At Female [facility] Start: 06-21-2017 None [facility] Start: 03-18-2019 With Family [facility] Start: 07-21-2020 End: 03-01-2023 History of Social function [facility] Start: 07-21-2020 End: 03-01-2023 Tobacco use panel [facility] Start: 11-08-2021 Gender identity Identifies as female gender (finding) [facility] National Score (1-100), lower number is lower risk Not on file [facility] NEGATED: Highlighted row [facility] Goals Date Patient Goal Desired Activity /State Personal health goal Functional Status Date Assessment Result Facility 08-03-2022 Functional status Ambulates;Bathroom Priv ilege [facility] Work Phone: Mental Status Date Assessment Result Facility 08-03-2022 Cognitive function Voice/Name [facility] Work Phone: 06-08-2022 Cognitive function Level Of Cons ciousness Awake;Alert;Appropriate;Follow s Commands [facility] Work Phone: Clinical Notes 09-08-2020 to 01-01-2025 Candido Whalen APRN.[facility] - 06/26/2024 9:43 AM ESTTelephone Encounter - Mireya Han - 12/08/2023 2:23 PM EDTTelephone Encounter - Mireya Han - 12/08/2023 1:37 PM EDT Note Date & Type Note Facility 01-01-2025 Note HNO ID: [id number] Author: MANJIT TIJERINA PA Service: ? Author Type: Physician Beverage Server Type: Progress Notes Filed: 01/01/2025 09:27 Note Text: [facility] Subjective Raymond Brownlee is a 24 year old female. Patient presents with: burning with urination: Burning and itching x 2 days HPI Dysuria and Pruritus: - Dysuria and pruritus in the genital area. - Denies rash or visible lesions. - No recent antibiotic use. - No changes in body wash; recent change in shampoo. - Denies pelvic pain or fevers. - Chronic back pain, no recent changes. Vaginal Discharge: - Noted white vaginal discharge. Herpes: - Diagnosed with herpes at age 19 during a hospital visit for suspected UTI. - No history of outbreaks or lesions. - Treated with medication for 4 days at the time of diagnosis, with resolution of symptoms. - No issues since diagnosis. Sexual Activity: - Sexually active; for 6 years. - Denies concern for STDs. : - Denies concern for ; history of bilateral salpingectomy. 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 (Patient not taking: Reported on 01/01/2025) FAMILY HISTORY Problem Relation Age of Onset Alcohol/Drug Mother other (Mental disorder unspecific) Mother other (ADHD) Sister other (ADHD) Brother Social History Tobacco Use Smoking status: Never Smokeless tobacco: Never Vaping Use Vaping status: Never Used Substance Use Topics Alcohol use: No Drug use: No Review of Systems Constitutional: (-) fever Genitourinary: (+) dysuria, (+) itching, (+) white vaginal discharge, (-) pelvic pain Musculoskeletal: (+) chronic back pain Skin: (-) rash Objective BP 102/72 Pulse 87 Temp 36.9 ?C (98.4 ?F) (Tympanic) Resp 18 Wt 119 kg (262 lb 5.6 oz) LMP 06/21/2024 (Exact Date) SpO2 96% BMI 47.98 kg/m? Nursing note reviewed. Vitals reviewed. 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 Abdominal: No abdominal tenderness. No CVA tenderness. : External exam performed. No rash or lesions. No herpetic lesions observed. Patient declined internal exam, did self swabs. {1. Burning with urination (R30.0) 2. Vaginal itching (N89.8) - No visible herpes lesions or rash on examination. - Urinalysis does not indicate a UTI; urine culture ordered to confirm. - Vaginal swabs obtained to test for chlamydia, gonorrhea, trichomonas, bacterial vaginosis, and yeast infections. - Will follow up with patient in the next few days to discuss results and initiate appropriate treatment based on findings. Recording using [employer] software for draft documentation of the visit was discussed with the patient/authorized veterans employment representative; all questions welcomed and answered. Patient/authorized veterans employment representative agreed to proceed Diagnosis and treatment plan were discussed and questions were answered to the patient's satisfaction. Pt acknowledged understanding of concepts and follow up plan. Specific signs and symptoms that would indicate the need for higher level of care were discussed in detail warranting prompt ER evaluation. History and Record Review External record(s) reviewed: prior outpatient record. Differential Diagnoses - Vaginitis is more likely for the following reason(s): Awaiting swab result, suggested by HANDP - UTI is less likely for the following reason(s): laboratory studies not suggestive Disposition The patient was discharged. Procedures [facility] 06-26-2024 Note HNO ID: [id number] Author: CANDIDO WHALEN APRN.SRIRAM Service: ? Author Type: Nurse Practitioner Type: Progress Notes Filed: 06/26/2024 10:03 Note Text: CC: Patient presents with: URI: X 3 days with BRIDGETTE ear fullness x 2 days HPI: Raymond Brownlee is a 24 year old female who presents to the office with complaint of head congestion, cough, nonproductive, sore throat, sinus symptoms, and ear symptoms for a few days. Symptoms are worsening Associated symptoms includes ear pain and ear pressure . Denies wheezing, dyspnea, nausea, vomiting , and diarrhea. Treatments tried include nothing so far. with no relief of symptoms. Sick contacts: unknown. History of asthma, frequent episodes of bronchitis, chronic bronchitis, bronchiectasis or COPD: No Smoker: No Seasonal/environmental allergies: No The ROS is otherwise negative. The patient's pmh, medications, allergies, and past visits are reviewed. PHYSICAL EXAM: BP 114/77 Pulse 92 Temp 37.1 ?C (98.7 ?F) (Right Tympanic) Resp 16 Wt 114.8 kg (253 lb 1.4 oz) LMP 06/21/2024 (Exact Date) SpO2 96% BMI 46.29 kg/m? General appearance: alert, cooperative, pleasant, in no acute distress Head: Normocephalic Eyes: EOM's intact, conjunctiva pink and moist, no icterus, sclera white, non-injected Ears: Right ear: External ear/canal- Normal, TM - clear with good landmarks. Left ear: External ear/canal- Normal, TM - clear with good landmarks Oropharynx:moderate erythema, without exudates present Heart: Negative. RRR without obvious murmur, gallop, or rubs. No ectopy. 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 FAMILY HISTORY Problem Relation Age of Onset Alcohol/Drug Mother other (Mental disorder unspecific) Mother other (ADHD) Sister other (ADHD) Brother Social History Tobacco Use Smoking status: Never Smokeless tobacco: Never Vaping Use Vaping status: Never Used Substance Use Topics Alcohol use: No Drug use: No ASSESSMENT/PLAN: 1. Sore throat - ICD9: 462, ICD10: J02.9 (primary diagnosis) - STREP A MOLECULAR (POC) - neg 2. Acute cough - ICD9: 786.2, ICD10: R05.1 - AZITHROMYCIN 250 MG TABLET To start if not feeling better in a few days. No insurance does not want xray at this time. Prescription instructions reviewed with patient as applicable. Potential red flag symptoms discussed with the patient. Reviewed appropriate action plan to take if red flag symptoms occur. Patient agreeable to treatment plan. Candido Whalen APRN.[facility] 06-26-2024 History of Presen t illness Narrative CC: Patient presents with: URI: X 3 days with BRIDGETTE ear fullness x 2 days HPI: Raymond Brownlee is a 24 year old female who presents to the office with complaint of head congestion, cough, nonproductive, sore throat, sinus symptoms, and ear symptoms for a few days. Symptoms are worsening Associated symptoms includes ear pain and ear pressure . Denies wheezing, dyspnea, nausea, vomiting , and diarrhea. Treatments tried include nothing so far. with no relief of symptoms. Sick contacts: unknown. History of asthma, frequent episodes of bronchitis, chronic bronchitis, bronchiectasis or COPD: No Smoker: No Seasonal/environmental allergies: No The ROS is otherwise negative. The patient's pmh, medications, allergies, and past visits are reviewed. PHYSICAL EXAM: BP 114/77 Pulse 92 Temp 37.1 C (98.7 F) (Right Tympanic) Resp 16 Wt 114.8 kg (253 lb 1.4 oz) LMP 06/21/2024 (Exact Date) SpO2 96% BMI 46.29 kg/m General appearance: alert, cooperative, pleasant, in no acute distress Head: Normocephalic Eyes: EOM's intact, conjunctiva pink and moist, no icterus, sclera white, non-injected Ears: Right ear: External ear/canal- Normal, TM - clear with good landmarks. Left ear: External ear/canal- Normal, TM - clear with good landmarks Oropharynx:moderate erythema, without exudates present Heart: Negative. RRR without obvious murmur, gallop, or rubs. No ectopy. 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 FAMILY HISTORY Problem Relation Age of Onset Alcohol/Drug Mother other (Mental disorder unspecific) Mother other (ADHD) Sister other (ADHD) Brother Social History Tobacco Use Smoking status: Never Smokeless tobacco: Never Vaping Use Vaping status: Never Used Substance Use Topics Alcohol use: No Drug use: No ASSESSMENT/PLAN: 1. Sore throat - ICD9: 462, ICD10: J02.9 (primary diagnosis) - STREP A MOLECULAR (POC) - neg 2. Acute cough - ICD9: 786.2, ICD10: R05.1 - AZITHROMYCIN 250 MG TABLET To start if not feeling better in a few days. No insurance does not want xray at this time. Prescription instructions reviewed with patient as applicable. Potential red flag symptoms discussed with the patient. Reviewed appropriate action plan to take if red flag symptoms occur. Patient agreeable to treatment plan. Candido Whalen APRN.CNP documented in this encounter [facility] 12-08-2023 Miscellaneous Notes Formattin g of this note might be different from the original. Talked to patient and she verbally understands her culture was negative. Mireya Han Left patient a message to call back and ask for a triage nurse. Mireya Han Urine culture was negative please continue care plan as discussed with provider follow-up with primary care if symptoms worsen. documented in this encounter [facility] 12-08-2023 Telephone encount er Note Talked to patient and she verbally understands her culture was negative. Mireya Han [facility] 12-08-2023 Telephone encount er Note Patient called returning a call from [facility] regarding lab results. Patient denies any new or worsening symptoms of which a provider is not aware:Yes . Pt conferenced to Mireya from urgent care for further assistance [facility] 12-08-2023 Miscellaneous Notes Formattin g of this note might be different from the original. Patient called returning a call from [facility] regarding lab results. Patient denies any new or worsening symptoms of which a provider is not aware:Yes . Pt conferenced to Mireya from urgent care for further assistance documented in this encounter [facility] 12-08-2023 Telephone encount er Note Left patient a message to call back and ask for a triage nurse. Mireya Han [facility] 12-08-2023 Telephone encount er Note Urine culture was negative please continue care plan as discussed with provider follow-up with primary care if symptoms worsen. [facility] 12-08-2023 Telephone encount er Note Talked to patient and she verbally understands she was positive for yeast and there is a rx sent in for her. Mireya Han [facility] 12-08-2023 Miscellaneous Notes Formattin g of this note might be different from the original. Talked to patient and she verbally understands she was positive for yeast and there is a rx sent in for her. Mireya Han Call patient let her know that she is positive for yeast. Diflucan was called in. Patient was negative for trichomonas, gonorrhea, chlamydia, bacterial vaginosis. documented in this encounter [facility] 12-08-2023 Telephone encount er Note Call patient let her know that she is positive for yeast. Diflucan was called in. Patient was negative for trichomonas, gonorrhea, chlamydia, bacterial vaginosis. [facility] 12-07-2023 History of Presen t illness Narrative This note was created using [employer]. Subjective Raymond Brownlee is a 23 year old female. Patient reports she has had dysuria and frequency for 3 days. Denies any abdominal pain, CVA tenderness, nausea/vomiting, fevers, or pelvic pain. Denies any new sexual partners or vaginal symptoms. UTI Associated symptoms include frequency. Review of Systems Genitourinary: Positive for dysuria and frequency. Objective BP 124/66 Pulse 76 Temp 36.8 C (98.2 F) Resp 16 Wt 111.5 kg (245 lb 13 oz) LMP 02/14/2023 SpO2 99% BMI 44.96 kg/m Physical Exam Exam conducted with a cook larder present. Abdominal: General: Bowel sounds are normal. There is no distension. Palpations: Abdomen is soft. Tenderness: There is no abdominal tenderness. There is no right CVA tenderness or left CVA tenderness. Genitourinary: Vagina: Vaginal discharge present. No tenderness. Cervix: Normal. Comments: Patient had white discharge in the vaginal canal. Cervix was WNL. Patient denies any vaginal discomfort, tolerated procedure well. 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 FAMILY HISTORY Problem Relation Age of Onset Alcohol/Drug Mother other (Mental disorder unspecific) Mother other (ADHD) Sister other (ADHD) Brother Social History Tobacco Use Smoking status: Never Smokeless tobacco: Never Vaping Use Vaping Use: Never used Substance Use Topics Alcohol use: No Drug use: No ASSESSMENT/PLAN: 1. Dysuria - ICD9: 788.1, ICD10: R30.0 (primary diagnosis) acute - UA positive for venkatesh esterase - Send urine for culture - Begin treatment with Macrobid 100 mg BID for 5 days - Patient education for prevention given - Will be notified of vaginal swab results - NITROFURANTOIN MONOHYDRATE & MACROCRYSTAL 100 MG ORAL CAP - BACTERIAL VAGINOSIS NAAT - DULCE MARIA/TRICHOMONAS NAAT - GONORRHEA/CHLAMYDIA NAAT 2. Urinary frequency - ICD9: 788.41, ICD10: R35.0 acute - Patient education for prevention given - UA DIP, URINE (POC) - +Venkatesh esterase - URINE CULTURE 3. Sore throat - ICD9: 462, ICD10: J02.9 - suspect viral - Rapid Strep negative in the office today - Discussed supportive care treatment with fluids, rest and analgesia. - STREP A MOLECULAR (POC) - negative Prescription instructions reviewed with patient. Potential red flag symptoms discussed with the patient. Reviewed appropriate action plan to take if red flag symptoms occur. Patient agreeable to treatment plan. Kaylee Branham Supervising provider was present and guided the care of the patient for the entire session on this date. All documentation was reviewed and agreed upon. Candido Whalen APRN.SRIRAM documented in this encounter [facility] 05-12-2023 Discharge summary Note Date/Time May 12, 2023 10:47pm [facility] Medical Records Department [facility] [place] [address] Emergency Department Summary 05/12/23 MR#: [id number] Acct: [id number] Name: RAYMOND BROWNLEE Rep #:[id number] : 2000 23 From: Robert Delatorre MD PCP: Care Physician,No Primary Status :REG ER Location: ED HPI HPI - URI History of Present Illness Chief Complaint: Cough Detail of Chief Complaint: [place] tract infectious symptoms Informant: patient Onset/Context/Timing Onset: Yesterday Context: Sudden Onset Timing: Continuous and Waxes and wanes Quality: Upper respiratory tract infectious symptoms and diarrhea Location: Upper respiratory and GI Current Severity: Mild Maximum Severity: Moderate Worsened by: Not Worsened By Swallowing, Eating Solids or Drinking Liquids Relieved by: Not Relieved By Tylenol or NSAIDs Associated Symptoms Associated Symptoms: Positive for Nasal Congestion, Myalgias, Diarrhea and Nonproductive cough; Negative for Headache, Sinus Pressure, Nausea, Vomiting, Shortness of Breath or Chest Pain Narrative Narrative: Patient is a 23-year-old non-smoker who presents with upper respiratory tract symptoms that started yesterday and diarrhea. She states multiple coworkers areill with viral type illness. She denies subjective or objective fever. She denies night sweats. She does report myalgias and arthralgias. She does endorse rhinorrhea, congestion, sore throat. Her cough is nonproductive. She denies abdominal pain. She denies nausea or vomiting. She does endorse diarrhea. She denies urologic symptoms. Prior similar symptoms: No Recent Illness/Hospitalization: No ROS ROS ED Constitutional Constitutional ED: Denies chills, fever(s), subjective or sweats Eyes Eyes: Denies blurry vision, change in vision or diplopia ENT ENT ED: Reports rhinorrhea and sore throat; Denies ear pain Cardiovascular Cardiovascular: Denies chest pain, orthopnea, palpitations or paroxysmal nocturnal dyspnea Respiratory/Chest Respiratory/Chest: Reports cough and other Details: Does admit to wheezing. Shedoes not have history of asthma. ; Denies dyspnea, dyspnea on exertion, orthopnea, paroxysmal nocturnal dyspnea or sputum Gastrointestinal Gastrointestinal: Reports diarrhea; Denies abdominal pain, nausea or vomiting Genitourinary Genitourinary ED: Denies dysuria, hematuria or urinary frequency Musculoskeletal Musculoskeletal: Reports arthralgias and myalgias Integumentary Denies rash Neurologic Neurologic: Denies headache(s) or paresthesias Hematologic/Lymphatic Hematologic/Lymphatic: Denies easy bleeding or easy bruising PFSH PFSH Medical History Non-smoker Home Medications NK 07/27/22 [History Last Taken Unknown] Allergy/AdvReac Type Severity Reaction Status Date / Time amoxicillin Allergy Rash Verified 05/12/23 22:11 Penicillins Allergy Rash Verified 05/12/23 22:11 vancomycin Allergy Rash Verified 05/12/23 22:11 metoclopramide [From Reglan] AdvReac Other Verified 05/12/23 22:11 Surgical History History of laparoscopic cholecystectomy Social History Smoking Status: Never smoker substance use type: does not use EXAM Physical Exam Const Vital Signs: 05/12/23 22:09 05/12/23 22:14 Temperature 98.8 F Temperature Source Temporal Pulse Rate 100 Respiratory Rate 18 Respiratory Effort Short of Breath Respiratory Depth Normal Respiratory Pattern Normal Blood Pressure 141/93 H Blood Pressure Mean 109 Pulse Ox 98 Oxygen Delivery Method Room Air Room Air Positive well nourished, well developed and obese General Appearance ED: well developed and NAD; Negative for cyanotic, diaphoretic or pallor Nutritional Appearance: obese HEENT Reports moist mucous membranes normocephalic and atraumatic Face and Sinus: Negative for sinus tenderness or facial tenderness Throat: posterior oropharynx normal Eyes PERRL and EOMs intact bilaterally General Eye ED: Negative for pale conjunctiva or scleral icterus Neck no lymphadenopathy, supple, no meningeal signs and no JVD Resp normal respiratory effort and No clear to auscultation bilaterally Auscultation: wheezes expiratory wheezes, scattered wheezes and throughout Cardio S1 normal heart sound, S2 normal heart sound and no murmurs Rate: regular rate Rhythm: regular rhythm GI non-tender, non-distended and no masses Auscultation: normoactive bowel sounds Palpation: soft Extremity normal to inspection and full ROM General Extremety ED: Negative for cyanosis General Extremity: Negative for cyanosis Neuro oriented x3, CN's II-XII intact bilaterally and no sensory deficits noted Sensorium / Orientation: alert Psych mental status grossly normal Skin General Skin Exam: Negative for jaundice or pallor Lesions: no lesions Rashes: no rashes MDM MDM MDM Narrative Medical decision making narrative: Physical consistent with acute bronchitis with wheezing. She also has diarrhea. Her symptoms consistent with a systemic viral illness. She was treated symptomatically. Since she has not used inhaler in many years respiratory we will show her how to use inhaler and she will be discharged with the inhaler that she uses in the emergency department for her wheezing. Since she is not febrile, tachypneic or hypoxic and there are no rales or egophony imaging was not obtained. Patient's blood pressure is elevated. She does not have history of hypertension. We will have this reassessed by her doctor in 2 weeks. History & Record Review Additional record(s) reviewed:: Prior outpatient record (ER visits for viral type symptoms and eye injury.), Prior ED visit and Prior labs Discharge Plan Triage Chief Complaint: Cough ED Provider: Robert Delatorre Dx/Rx/DC Orders Clinical Impression: Acute bronchitis with wheezing, Systemic viral illness, Diarrhea, Elevated blood pressure reading Instructions: ED Bronchitis with Wheezing (Adult), ED Hypertension, To Be Confirmed Prescriptions: No Action NK Primary Care Provider: Care Physician,No Primary Referrals: Care Physician,No Primary [Primary Care Provider] - Doctor,Your [Non-Staff] - 1 Week if not improving Activity Restrictions/Additional Instructions: 1. 2 puffs of inhaler every 2-4 hours while awake for the next 2 days then every 4-6 hours as needed 2. You may feel ill for another 7 to 10 days 3. You may take either Tylenol every 6 hours or 4 ibuprofen tablets every 8 hours for muscle aches and fever. Patient Disposition Disposition: Home, Self Care What to do if you have Problems For any increased pain, shortness of breath, bleeding, nausea or vomiting, chestpain, or any unexpected problems, contact your Primary Care Provider. Call [facility] ([phone]) or report to the closest Emergency Room. Call 911 if necessary. 05/12/23 2250 <Electronically signed by Robert Delatorre MD> Cosigner Signature (if applicable): CC: No Primary Care Physician ~ Signed [facility] Work Phone: [phone]) 773-538707-20-2023 History of Present illness Narrative* Casi Redmond MD - 03/01/2023 10:21 AM EDT Personal Lines Sales Executive offered: Patient declines. Raymond Brownlee is a 22 year old female who a rash in her groin for the last couple of days. Shestates the rash is painful and red. She has not tried to apply any qsoj-njq-kqyuhac creams. Patientdenies any concerns for STDs but would like to be screened. Patient reports no changes with soaps or detergents. Patient also reports she has had increasing vaginal discharge. She states that discharge is malodorous and has a yellow color to it. Reports she does have a history of herpes but has nothad any recent outbreaks. Patient denies any fevers, pelvic pain, dysuria. Patient offers no other complaints. 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 H/O sickle cell trait father has trait Herpes simplex virus (HSV) infection 2019 none current per patient History of anxiety History of depression PAST SURGICAL HISTORY Procedure Laterality Date REMOVAL GALLBLADDER 12/20/2016 SALPINGECTOMY Bilateral 08/03/2022 FAMILY HISTORY Problem Relation Age of Onset Alcohol/Drug Mother other (Mental disorder unspecific) Mother other (ADHD) Sister other (ADHD) Brother Social History Tobacco Use Smoking status: Never Smokeless tobacco: Never Vaping Use Vaping Use: Never used Substance Use Topics Alcohol use: No Drug use: No Current Outpatient Medications Medication Sig Zrnyxenfnidtnef-Obteaecnm-ZN (BROMFED DM) 2-30-10 mg/5 mL syrup Take 10 mL by mouth four times daily as needed. (Patient not taking: Reported on 11/29/2022) acetaminophen (TYLENOL) 325 mg tablet Take 2 tablets by mouth every 6 hours as needed for pain. docusate sodium (COLACE) 100 mg capsule Take 1 capsule by mouth twice daily as needed for constipation. (Patient not taking: Reported on 11/29/2022) ibuprofen (MOTRIN) 600 mg tablet Take 1 tablet by mouth every 6 hours as needed for pain. Breast Pump Use as directed (Patient not taking: Reported on 11/29/2022) PNV no.95/ferrous fum/folic ac ( ORAL) Take by mouth. (Patient not taking: Reported on 11/29/2022) No current facility-administered medications for this visit. Allergies As of Date: 03/01/2023 Allergen Noted Reaction VANCOMYCIN 05/12/2022 Hives, Shortness of Breath, and Other: See Comments AMOXICILLIN 10/21/2015 Hives METOCLOPRAMIDE 01/03/2021 Intolerance Fully Assessed 11/29/2022 REVIEW OF SYSTEMS Abdomen: No pain Bladder: no dysuria... Expanded ROS: no fever Allergies and current medication updated:Yes EXAM: BP 110/74 Wt 231 lb (104.8kg) LMP 02/14/2023 GENERAL: pleasant, female in no apparent distress HEENT: atraumatic NECK: full range of motion DERMATOLOGY: Normal PELVICexternal genitalia normal, normal Bartholin's glands, urethra, Yoe's glands, no vulvar lesions, no cervical lesions, good vaginal support, normal appearing perineal body and perianal region, Clear discharge. Bilateral groin area has yeast dermatitis. NEURO: alert and oriented x3,exam grossly non-focal EXTREMITIES: normal ASSESSMENT AND PLAN: Encounter Diagnosis ICD-10-CM 1. Yeast dermatitis B37.2 nystatin (MYCOSTATIN) powder fluconazole (DIFLUCAN) 150 mg tablet 2. Vaginal discharge N89.8 DULCE MARIA/TRICHOMONAS NAAT BACTERIAL VAGINOSIS NAAT GONORRHEA/CHLAMYDIA NAAT 3. Screening examination for STD (sexually transmitted disease) Z11.3 GONORRHEA/CHLAMYDIA NAAT 4. Vaginal and vulvar hygiene reviewed. Using Goldbond powder in pannus and groin area reviewed with the patient. Discussed keeping areas as clean and dry as possible especially in high humidity times. Using cotton clothing sweat wicking material reviewed with the patient. Medical Decision Making: Problems: Low: Acute, uncomplicated illness or injury Data: Unique test(s) ordered: 3+ Risk: Moderate: Drug management Medical Decision Making Level: 4 - Moderate Casi Das MD documented in this encounterMer[facility]04-[facility] History of Present illness Narrative* Shane Tse APRN.[employer]ACQU[employer] LACE [employer]AVER - 11/29/2022 1:29 PM EDT Subjective HPI HPI Raymond Brownlee is a 22 year old female who presents today for CC of burning with urination,frequency, urgency. This started today. Has tried nothing for relief. Symptoms are worsened by nothing. Risk factors hx of recurrent uti's. Denies possibility of being . 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 ibuprofen (MOTRIN) 600 mg tablet Take 1 tablet by mouth every 6 hours as needed for pain. nitrofurantoin monohydrate and macrocrystal (MACROBID) 100 mg capsule Take 1 capsule by mouth twicedaily for 7 days. Tufmzfnefshydjm-Hsdhzciis-VT (BROMFED DM) 2-30-10 mg/5 mL syrup Take 10 mL by mouth four times daily as needed. (Patient not taking: Reported on 11/29/2022) docusate sodium (COLACE) 100 mg capsule Take 1 capsule by mouth twice daily as needed for constipation. (Patient not taking: Reported on 11/29/2022) Breast Pump Use as directed (Patient not taking: Reported on 11/29/2022) PNV no.95/ferrous fum/folic ac ( ORAL) Take by mouth. (Patient not taking: Reported on 11/29/2022) FAMILY HISTORY Problem Relation Age of Onset Alcohol/Drug Mother other (Mental disorder unspecific) Mother other (ADHD) Sister other (ADHD) Brother Social History Tobacco Use Smoking status: Never Smokeless tobacco: Never Vaping Use Vaping Use: Never used Substance Use Topics Alcohol use: No Drug use: No Review of Systems Constitutional: Negative for chills, fever and weight loss. Respiratory: Negative for cough, shortness of breath and wheezing. Cardiovascular: Negative for chest pain and palpitations. Gastrointestinal: Negative for abdominal pain, blood in stool, constipation, diarrhea, heartburn, melena, nausea and vomiting. Genitourinary: Positive for dysuria, frequency and urgency. Negative for flank pain and hematuria. Musculoskeletal: Negative for myalgias. Objective Blood pressure 110/80, pulse 85, temperature 36.9 C (98.5 F), resp. rate 21, weight 99.2 kg (218 lb12.8 oz), SpO2 99 %, not currently . Physical Exam Constitutional: General: She is not in acute distress. Appearance: Normal appearance. She is not toxic-appearing. Cardiovascular: Rate and Rhythm: Normal rate and regular rhythm. Heart sounds: Normal heart sounds. Pulmonary: Effort: Pulmonary effort is normal. Breath sounds: Normal breath sounds. Abdominal: General: Bowel sounds are normal. Palpations: Abdomen is soft. Tenderness: There is no abdominal tenderness. Skin: General: Skin is warm and dry. ASSESSMENT/PLAN: 1. Burning with urination - ICD9: 788.1, ICD10: R30.0 acute - UA positive for venkatesh esterase, hematuria, proteinuria, and nitrates - Send urine for culture - Begin treatment with Macrobid 100 mg BID for 7 days - Patient education for prevention given - UA DIP, URINE (POC) - URINE CULTURE - NITROFURANTOIN MONOHYDRATE & MACROCRYSTAL 100 MG ORAL CAP Shane Tse APRN.JACQUARD LACE WEAVER documented in this encounterMercy Hospital03-01-2023 History of Present illness Narrative* Ciera Huerta PA-C - 10/11/2022 3:00 PM EST This note was created using [employer]. Subjective Raymond Brownlee is a 22 year old female. HPI Patient presents with cough, fever, runny nose over the past 2 days. She denies shortness of breath. She states it does hurt sometimes when she coughs in her chest. No vomiting. She has had some diarrhea. Denies sick contacts. No home COVID test done. Denies chronic medical problems. Review of Systems Constitutional: Negative. HENT: Positive for congestion, rhinorrhea and sore throat. Negative for ear pain. Respiratory: Positive for cough. Negative for shortness of breath. Cardiovascular: Negative. Gastrointestinal: Negative. Genitourinary: Negative. Musculoskeletal: Negative. All other systems reviewed and are negative. 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 60 tablet 0 docusate sodium (COLACE) 100 mg capsule Take 1 capsule by mouth twice daily as needed for constipation. 30 capsule 0 ibuprofen (MOTRIN) 600 mg tablet Take 1 tablet by mouth every 6 hours as needed for pain. 60 tablet0 Breast Pump Use as directed 1 Each 0 PNV no.95/ferrous fum/folic ac ( ORAL) Take by mouth. Jyzxarxeuecaxss-Xtgrtproc-PB (BROMFED DM) 2-30-10 mg/5 mL syrup Take 10 mL by mouth four times daily as needed. 200 mL 0 No current facility-administered medications for this visit. PAST SURGICAL HISTORY Procedure Laterality Date REMOVAL GALLBLADDER 12/20/2016 SALPINGECTOMY Bilateral 08/03/2022 FAMILY HISTORY Problem Relation Age of Onset Alcohol/Drug Mother other (Mental disorder unspecific) Mother other (ADHD) Sister other (ADHD) Brother Social History Tobacco Use Smoking status: Never Smokeless tobacco: Never Vaping Use Vaping Use: Never used Substance Use Topics Alcohol use: No Drug use: No Objective BP 112/78 Pulse 116 Temp (!) 39.3 C (102.7 F) (Tympanic) Resp 18 Wt 93 kg (205 lb) LMP (LMP Unknown) SpO2 99% BMI 37.49 kg/m Physical Exam Vitals reviewed. Constitutional: Appearance: Normal appearance. HENT: Head: Normocephalic and atraumatic. Right Ear: Tympanic membrane, ear canal and external ear normal. Left Ear: Tympanic membrane, ear canal and external ear normal. Nose: Congestion present. Mouth/Throat: Mouth: Mucous membranes are moist. Pharynx: Oropharynx is clear. Cardiovascular: Rate and Rhythm: Normal rate and regular rhythm. Heart sounds: Normal heart sounds. Pulmonary: Effort: Pulmonary effort is normal. Breath sounds: Normal breath sounds. Musculoskeletal: Cervical back: Neck supple. Lymphadenopathy: Cervical: No cervical adenopathy. Skin: General: Skin is warm and dry. Findings: No rash. Neurological: Mental Status: She is alert. Assessment and Plan ASSESSMENT/PLAN: 1. Sore throat - ICD9: 462, ICD10: J02.9 (primary diagnosis) - Alere Strep Test neg, no culture pending - STREP A MOLECULAR (POC) 2. Suspected COVID-19 virus infection - ICD9: V01.79, ICD10: Z20.822 COVID testing pending. Discussed quarantine. Discussed red flag symptoms. Given Bromfed for symptoms. Recommended ibuprofen or Tylenol bnyx-fot-upofzak. - COVID WITH FLUA+B, ROUTINE Ciera Huerta PA-C documented in this encounterMercy Hospital12-30-2022 History of Present illness Narrative* Spike Alfonso MD - 08/11/2022 9:51 AM EST Patient presents with: Sore Throat: Nasal congestion, fever x3 days HPI: Feeling sick for 4 days. Daughter had viral URI recently. Positive symptoms: Sore throat, Nasal Congestion, Fever, right Earache, Nasal Congestion, Post nasal drainage Negative symptoms: Cough, Rhinorrhea, Vomiting, Diarrhea, , OTC: Ibuprofen, Tylenol MEDICATIONS: Current Outpatient Medications Medication Sig acetaminophen (TYLENOL) 325 mg tablet Take 2 tablets by mouth every 6 hours as needed for pain. docusate sodium (COLACE) 100 mg capsule Take 1 capsule by mouth twice daily as needed for constipation. ibuprofen (MOTRIN) 600 mg tablet Take 1 tablet by mouth every 6 hours as needed for pain. Breast Pump Use as directed PNV no.95/ferrous fum/folic ac ( ORAL) Take by mouth. No current facility-administered medications for this visit. ALLERGIES: ALLERGIES Allergen Reactions Vancomycin Hives, Shortness of Breath, Other: See Comments SOB, Chest pain , rash Amoxicillin Hives Metoclopramide Intolerance VITALS: BP 116/74 Pulse 107 Temp (!) 38.7 C (101.6 F) Resp 20 Wt 88.3 kg (194 lb 9.6 oz) LMP (LMPUnknown) SpO2 99% BMI 35.59 kg/m PHYSICAL EXAM: GEN: mildly ill appearing HEENT: PERRL, EOMI, conjunctiva clear Ears: canals clear. TMs without erythema, bulge, or effusion Sinuses: non-tender frontal sinus, non-tender maxillary sinuses Throat: moist mucous membranes, tonsillar erythema, cryptic exudate Neck: supple, no thyromegaly, no lymphadenopathy HEART: regular rate and rhythm, no murmurs LUNGS: clear to auscultation, no wheezes or crackles, no increased WOB ASSESSMENT/PLAN: 1. Sore throat - ICD9: 462, ICD10: J02.9 (primary diagnosis) 2. Exudative tonsillitis - ICD9: 463, ICD10: J03.90 - STREP A MOLECULAR (POC) - invalid rapid strep on 3 attempts. - COVID WITH FLUA+B, ROUTINE Begin treatment for streptococcal pharyngitis. Strep is currently prevalent in the community. - AZITHROMYCIN 250 MG TABLET has amoxicillin allergy. 3. Fever, unspecified fever cause - ICD9: 780.60, ICD10: R50.9 Rule out influenza which is also currently prevalent because of persistent high fever- COVID WITH FLUA+B, ROUTINE Differential includes mononucleosis. She has had mono before. Buchanan discussed. Buchanan is viral illness without curative treatment. Treatment is supportive care withrest, adequate hydration, and symptom relief. Symptoms may last for several weeks. Testing for monois not sensitive early in the illness. There is potential for liver and spleen enlargement which poses a risk for rupture with internal bleeding. Contact activity restriction is appropriate for knownmono. Spike Alfonso MD documented in this encounterMercy Hospital12-28-2022 Miscellaneous Notes* Telephone Encounter - Oralia Martínez LPN - 08/09/2022 8:44 AM EST Contacted pt and she is reporting that she is doing well and does not have any questions or concerns. Oralia Martínez LPN * Telephone Encounter - Casi Navarro MD - 08/09/2022 7:36 AM EST Please call patient see if she is feeling after her laparoscopic salpingectomy. Please notify her that both fallopian tubes are benign. No postop visit is necessary unless she has any concerns. documented in this encounterMercy Hospital10-27-2022 History of Present illness Narrative* Caterina Garsia APRN.VANNA - 06/08/2022 12:58 PM EDT EARLY VISIT Raymond Brownlee is a 22 year old here for 4 week visit. Delivery Summary: Spontaneous Vaginal delivery with male . at 22:03 05/12/2022, IOL for pyelectasis. ROS: General: Denies any fever or chills Hypertension Screening: Headache? No. Visual Changes? No Epigastric Pain? No Increased Swelling? No Taking any BP medications at home? No If applicable, monitoring BP at home? (If Yes, include results) NA Mood: normal Depression: denies symptoms of depression. OB Depression and Anxiety Screening- This Encounter (since 06/07/2022) Over the past 2 weeks have you felt down, depressed, or hopeless? Negative Over the past two weeks, have you felt little interest or pleasure in doing things? Negative Feeling nervous, anxious or on edge 0-Not at all Not being able to stop or control worrying 0-Not al all Anxiety Pre-Screening Total (If >/= 3 additional questions will be reviewed) 0 Feeding: Bottle feeding Bladder: No dysuria, gross hematuria, urinary frequency, urinary urgency, or incontinence Bowel symptoms: No nausea, vomiting, or diarrhea, Negative for abdominal discomfort, blood in stools or black stools, and change in bowel habits Abdomen: N/A Bleeding: spotting Bottom and Perineum: No issues Sleep: no sleep concerns, feels rested [place] since delivery: Not resumed Emotional support: Yes Exercise: N/A Other issues: None PHYSICAL EXAMINATION: BP 110/68 Wt 188 lb 3.2 oz (85.4 kg) LMP (LMP Unknown) No BMI 34.42 kg/m General: pleasant,female in no apparent distress, A&O x 3. Skin warm and intact. Breast: Deferred Abdomen: Deferred /Incision: N/A Pelvic: Deferred Bimanual: Deferred ASSESSMENT AND PLAN: 22 year old status post with normal course. Asking for return to work at 4 weeks PP due to needing income. Contraception plan: tubal ligation. Reinforced 6-week pelvic rest. Encouraged condom usage should patient deviate. Would like tubal ligation with . Title 19 signed on 02/22/22. Would like completed at [facility]. Surgery to be scheduled and then return for preoperative visit. Education: resources provided - see MA/RN note Follow up: Return to Clinic for 6 week visit and as needed Medical Decision Making: Medical Decision Making Level: 1 - N/A Caterina Garsia APRN.CNM documented in this encounterMercy Hospital09-30-2022 History of Past illness Narrative* Problem Noted Date Resolved Date 39 weeks gestation of 05/12/2022 06/08/2022 38 weeks gestation of 05/10/2022 06/08/2022 Positive GBS test 04/28/2022 06/08/2022 Overview: 04/28/22- GBS positive. Patient will need treated with antibiotics during labor. Allergy to Amoxicillin- awaiting susceptibility screening. Loren De Dios APRN.CNM renal anomaly, single gestation 03/27/2022 06/08/2022 Pyelectasis of fetus on ultrasound 12/1206/08/2022 Overview: April 06, 2022 needs short term follow up for renal US. Nancy Umanzor MD 12/30/21-Bilateral pyelectasis, follow up at 28 weeks for reevaluation. Caterina Garsia APRN.CNM High-risk in third trimester 06/08/2022 Date of last menstrual period (LMP) unknown 09/1406/08/2022 Overview: 10/05/21 Formal dating US ordered. SW No leakage of amniotic fluid into vagina 021 10/07/2021 Overview: - Complains of intermittent vaginal fluid over past 2 months - Has had multiple ED evaluations and was told membranes intact - Complains of leakage and dampness yesterday, none today - SSE: neg nitrazine, neg pooling, neg ferning - BV/Trich, GC/CT pending - will treat accordingly - Precautions reviewed thoroughly Oligohydramnios in second trimester 12/24/2020 10/07/2021 Overview: - Per patient, low amniotic fluid noted on anatomy scan at 19 weeks, referred to MFM ([facility]) but missed appt - Instructed to come to [facility] for evaluation given she is complaining of leakage of fluid - Amniotic membranes intact on exam - Instructed patient to call her [employer] office on Sunday to facilitate rescheduling MFM appt [facility] - Offered patient to f/u with [facility] MFM, pt to call office for appt if that's what she chooses - No bedside US completed today given amniotic fluid was intact Encounter for supervision of normal in teen primigravida, antepartum 11/09/2016 08/03/2017 Overview: 11/09/2016Patient is 16 years old 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 The FOB is 18 years old and is aware she is but not sure how much he wants to be involved. She is planning on keeping baby. [facility] information and Care Center info given to patient. TKRN documented as of this encounter (statuses as of 06/08/2022) [facility] of Past illness Narrative* Problem Noted Date Resolved Date 39 weeks gestation of 05/12/2022 06/08/2022 38 weeks gestation of 05/10/2022 06/08/2022 Positive GBS test 04/28/2022 06/08/2022 Overview: 04/28/22- GBS positive. Patient will need treated with antibiotics during labor. Allergy to Amoxicillin- awaiting susceptibility screening. Loren De Dios APRN.VANNAM renal anomaly, single gestation 03/27/2022 06/08/2022 Pyelectasis of fetus on ultrasound 12/1206/08/2022 Overview: April 06, 2022 needs short term follow up for renal US. Nancy Umanzor MD 12/30/21-Bilateral pyelectasis, follow up at 28 weeks for reevaluation. Caterina Garsia APRN.CNM High-risk in third trimester 06/08/2022 Date of last menstrual period (LMP) unknown 09/1406/08/2022 Overview: 10/05/21 Formal dating US ordered. SW No leakage of amniotic fluid into vagina 021 10/07/2021 Overview: - Complains of intermittent vaginal fluid over past 2 months - Has had multiple ED evaluations and was told membranes intact - Complains of leakage and dampness yesterday, none today - SSE: neg nitrazine, neg pooling, neg ferning - BV/Trich, GC/CT pending - will treat accordingly - Precautions reviewed thoroughly Oligohydramnios in second trimester 12/24/2020 10/07/2021 Overview: - Per patient, low amniotic fluid noted on anatomy scan at 19 weeks, referred to M ([facility]) but missed appt - Instructed to come to [facility] for evaluation given she is complaining of leakage of fluid - Amniotic membranes intact on exam - Instructed patient to call her [employer] [facility] office on Sunday to facilitate rescheduling MFM appt [facility] - Offered patient to f/u with [facility] MFM, pt to call office for appt if that's what she chooses - No bedside US completed today given amniotic fluid was intact Encounter for supervision of normal in teen primigravida, antepartum 11/09/2016 08/03/2017 Overview: 11/09/2016Patient is 16 years old and 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 The FOB is 18 years old and is aware she is but not sure how much he wants to be involved. She is planning on keeping baby. [facility] information and Care Center info given to patient. TKRN documented as of this encounter (statuses as of 08/04/2022) [facility] History of Past illness Narrative* Problem Noted Date Resolved Date 39 weeks gestation of 05/12/2022 06/08/2022 38 weeks gestation of 05/10/2022 06/08/2022 Positive GBS test 04/28/2022 06/08/2022 Overview: 04/28/22- GBS positive. Patient will need treated with antibiotics during labor. Allergy to Amoxicillin- awaiting susceptibility screening. Loren De Dios APRN.RAYMOND renal anomaly, single gestation 03/27/2022 06/08/2022 Pyelectasis of fetus on ultrasound 12/1206/08/2022 Overview: April 06, 2022 needs short term follow up for renal US. Nancy Umanzor MD 12/30/21-Bilateral pyelectasis, follow up at 28 weeks for reevaluation. Caterina Garsia APRN.VANNAM High-risk in third trimester 06/08/2022 Date of last menstrual period (LMP) unknown 09/1406/08/2022 Overview: 10/05/21 Formal dating US ordered. SW No leakage of amniotic fluid into vagina 021 10/07/2021 Overview: - Complains of intermittent vaginal fluid over past 2 months - Has had multiple ED evaluations and was told membranes intact - Complains of leakage and dampness yesterday, none today - SSE: neg nitrazine, neg pooling, neg ferning - BV/Trich, GC/CT pending - will treat accordingly - Precautions reviewed thoroughly Oligohydramnios in second trimester 12/24/2020 10/07/2021 Overview: - Per patient, low amniotic fluid noted on anatomy scan at 19 weeks, referred to [facility] ([facility]) but missed appt - Instructed to come to [facility] for evaluation given she is complaining of leakage of fluid - Amniotic membranes intact on exam - Instructed patient to call her [employer] [facility] office on Sunday to facilitate rescheduling MFM appt [facility] - Offered patient to f/u with [facility] MFM, pt to call office for appt if that's what she chooses - No bedside US completed today given amniotic fluid was intact Encounter for supervision of normal in teen primigravida, antepartum 11/09/2016 08/03/2017 Overview: 11/09/2016Patient is 16 years old and 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 The FOB is 18 years old and is aware she is but not sure how much he wants to be involved. She is planning on keeping baby. [facility] information and Care Center info given to patient. TKRN documented as of this encounter (statuses as of 08/15/2022) [facility] History of Past illness Narrative* Problem Noted Date Resolved Date 39 weeks gestation of 05/12/2022 06/08/2022 38 weeks gestation of 05/10/2022 06/08/2022 Positive GBS test 04/28/2022 06/08/2022 Overview: 04/28/22- GBS positive. Patient will need treated with antibiotics during labor. Allergy to Amoxicillin- awaiting susceptibility screening. Loren De Dios APRN.VANNAM renal anomaly, single gestation 03/27/2022 06/08/2022 Pyelectasis of fetus on ultrasound 12/1206/08/2022 Overview: April 06, 2022 needs short term follow up for renal US. Nancy Umanzor MD 12/30/21-Bilateral pyelectasis, follow up at 28 weeks for reevaluation. Caterina Garsia APRN.CNM High-risk in third trimester 06/08/2022 Date of last menstrual period (LMP) unknown 09/1406/08/2022 Overview: 10/05/21 Formal dating US ordered. SW No leakage of amniotic fluid into vagina 021 10/07/2021 Overview: - Complains of intermittent vaginal fluid over past 2 months - Has had multiple ED evaluations and was told membranes intact - Complains of leakage and dampness yesterday, none today - SSE: neg nitrazine, neg pooling, neg ferning - BV/Trich, GC/CT pending - will treat accordingly - Precautions reviewed thoroughly Oligohydramnios in second trimester 12/24/2020 10/07/2021 Overview: - Per patient, low amniotic fluid noted on anatomy scan at 19 weeks, referred to [facility] ([facility]) but missed appt - Instructed to come to [facility] for evaluation given she is complaining of leakage of fluid - Amniotic membranes intact on exam - Instructed patient to call her [facility] office on Sunday to facilitate rescheduling MFM appt [facility] - Offered patient to f/u with [facility] MFM, pt to call office for appt if that's what she chooses - No bedside US completed today given amniotic fluid was intact Encounter for supervision of normal in teen primigravida, antepartum 11/09/2016 08/03/2017 Overview: 11/09/2016Patient is 16 years old 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 The FOB is 18 years old and is aware she is but not sure how much he wants to be involved. She is planning on keeping baby. [facility] information and Care Center info given to patient. TKRN documented as of this encounter (statuses as of 08/16/2022) [facility] History of Past illness Narrative* Problem Noted Date Resolved Date 39 weeks gestation of 05/12/2022 06/08/2022 38 weeks gestation of 05/10/2022 06/08/2022 Positive GBS test 04/28/2022 06/08/2022 Overview: 04/28/22- GBS positive. Patient will need treated with antibiotics during labor. Allergy to Amoxicillin- awaiting susceptibility screening. Loren De Dios APRN.VANNAM renal anomaly, single gestation 03/27/2022 06/08/2022 Pyelectasis of fetus on ultrasound 12/1206/08/2022 Overview: April 06, 2022 needs short term follow up for renal US. Nancy Umanzor MD 12/30/21-Bilateral pyelectasis, follow up at 28 weeks for reevaluation. Caterina Garsia APRN.CNM High-risk in third trimester 06/08/2022 Date of last menstrual period (LMP) unknown 09/1406/08/2022 Overview: 10/05/21 Formal dating US ordered. SW No leakage of amniotic fluid into vagina 021 10/07/2021 Overview: - Complains of intermittent vaginal fluid over past 2 months - Has had multiple ED evaluations and was told membranes intact - Complains of leakage and dampness yesterday, none today - SSE: neg nitrazine, neg pooling, neg ferning - BV/Trich, GC/CT pending - will treat accordingly - Precautions reviewed thoroughly Oligohydramnios in second trimester 12/24/2020 10/07/2021 Overview: - Per patient, low amniotic fluid noted on anatomy scan at 19 weeks, referred to [facility] ([facility]) but missed appt - Instructed to come to [facility] for evaluation given she is complaining of leakage of fluid - Amniotic membranes intact on exam - Instructed patient to call her Manager [facility] office on Sunday to facilitate rescheduling MFM appt [facility] - Offered patient to f/u with [facility] MFM, pt to call office for appt if that's what she chooses - No bedside US completed today given amniotic fluid was intact Encounter for supervision of normal in teen primigravida, antepartum 11/09/2016 08/03/2017 Overview: 11/09/2016Patient is 16 years old 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 The FOB is 18 years old and is aware she is but not sure how much he wants to be involved. She is planning on keeping baby. [facility] information and Care Center info given to patient. TKRN documented as of this encounter (statuses as of 10/11/2022) [facility] History of Past illness Narrative* Problem Noted Date Resolved Date 39 weeks gestation of 05/12/2022 06/08/2022 38 weeks gestation of 05/10/2022 06/08/2022 Positive GBS test 04/28/2022 06/08/2022 Overview: 04/28/22- GBS positive. Patient will need treated with antibiotics during labor. Allergy to Amoxicillin- awaiting susceptibility screening. Loren De Dios APRN.RAYMOND renal anomaly, single gestation 03/27/2022 06/08/2022 Pyelectasis of fetus on ultrasound 12/1206/08/2022 Overview: April 06, 2022 needs short term follow up for renal US. Nancy Umanzor MD 12/30/21-Bilateral pyelectasis, follow up at 28 weeks for reevaluation. Caterina Garsia APRN.CNM High-risk in third trimester 06/08/2022 Date of last menstrual period (LMP) unknown 09/1406/08/2022 Overview: 10/05/21 Formal dating US ordered. SW No leakage of amniotic fluid into vagina 021 10/07/2021 Overview: - Complains of intermittent vaginal fluid over past 2 months - Has had multiple ED evaluations and was told membranes intact - Complains of leakage and dampness yesterday, none today - SSE: neg nitrazine, neg pooling, neg ferning - BV/Trich, GC/CT pending - will treat accordingly - Precautions reviewed thoroughly Oligohydramnios in second trimester 12/24/2020 10/07/2021 Overview: - Per patient, low amniotic fluid noted on anatomy scan at 19 weeks, referred to [facility] ([facility]) but missed appt - Instructed to come to [facility] for evaluation given she is complaining of leakage of fluid - Amniotic membranes intact on exam - Instructed patient to call her [facility] office on Sunday to facilitate rescheduling MFM appt [facility] - Offered patient to f/u with [facility] MFM, pt to call office for appt if that's what she chooses - No bedside US completed today given amniotic fluid was intact Encounter for supervision of normal in teen primigravida, antepartum 11/09/2016 08/03/2017 Overview: 11/09/2016Patient is 16 years old and 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 The FOB is 18 years old and is aware she is but not sure how much he wants to be involved. She is planning on keeping baby. [facility] information and Care Center info given to patient. TKRN documented as of this encounter (statuses as of 11/30/2022) [facility] History of Past illness Narrative* Problem Noted Date Diagnosed Date Resolved Date 39 weeks gestation of 05/12/2022 06/08/2022 38 weeks gestation of 05/10/2022 06/08/2022 Positive GBS test 04/28/2022 06/08/2022 Overview: 04/28/22- GBS positive. Patient will need treated with antibiotics during labor. Allergy to Amoxicillin- awaiting susceptibility screening. Loren De Dios APRN.CNM renal anomaly, single gestation 03/27/2022 06/08/2022 Pyelectasis of fetus on ultrasound 12/30/2021 06/08/2022 Overview: April 06, 2022 needs short term follow up for renal US. Nancy Umanzor MD 12/30/21-Bilateral pyelectasis, follow up at 28 weeks for reevaluation. Caterina Garsia APRN.CNM High-risk in third trimester 12/28/2021 06/08/2022 Date of last menstrual period (LMP) unknown 10/07/2021 06/08/2022 Overview: 10/05/21 Formal dating US ordered. SW No leakage of amniotic fluid into vagina 12/24/2020 10/07/2021 Overview: - Complains of intermittent vaginal fluid over past 2 months - Has had multiple ED evaluations and was told membranes intact - Complains of leakage and dampness yesterday, none today - SSE: neg nitrazine, neg pooling, neg ferning - BV/Trich, GC/CT pending - will treat accordingly - Precautions reviewed thoroughly Oligohydramnios in second trimester 12/24/2020 10/07/2021 Overview: - Per patient, low amniotic fluid noted on anatomy scan at 19 weeks, referred to [facility] ([facility]) but missed appt - Instructed to come to [facility] for evaluation given she is complaining of leakage of fluid - Amniotic membranes intact on exam - Instructed patient to call her [facility] office on Sunday to facilitate rescheduling MFM appt [facility] - Offered patient to f/u with [facility] MFM, pt to call office for appt if that's what she chooses - No bedside US completed today given amniotic fluid was intact Encounter for supervision of normal in teen primigravida, antepartum 11/09/2016 017 Overview: 11/09/2016Patient is 16 years old and is a sarah at [employer]. The FOB is 18 years old and is aware she is but not sure how much he wants to be involved. She is planning on keeping baby. [facility] information and Care Center info given to patient. TKRN documented as of this encounter (statuses as of 03/01/2023) [facility] History of Present illness Narrative* Leelee Up MD - 05/10/2022 3:57 PM EDT VIRTUAL VISIT PROGRESS NOTE This is a virtual visit using Alternative video platform. It required patient- provider interaction for the medical decision making as documented below. Patient is present today and has consented to the appointment. Raymond Brownlee is a 22 year old female seen for concerns for male fetus with renal anomalies. G3 with 2 older females who are otherwise healthy and no known FH of urologic/nephrologic issues. One of the previous children required NICU stay for about a month. Was found on anatomy survey to have slight renal dilation BILATERAL FU imaging 2 months later demonstrated RIGHT 8.2 mm dilation with possible cyst vs hydroureter, normal LEFT kidney and normal bladder Imaging at 30 marc demonstrated persistent RIGHT dilation with dilated ureter and now new LEFT same dilation and dilated ureter MRI 32 weeks Right ureteropelvic junction obstruction, with AP renal pelvis diameter of 15 mm (UTD A2-3). * Left renal pelviectasis. * No bowel dilation. US at 34 w Bilateral urinary tract dilation was visualized (R >> L). On the right size pelviectasis (17-18 mm), calicectasis, and dilation of the proximal ureter were visualized. Renal parenchymal thinning was NOT visualized. On the left side, pelviectasis (7-8 mm) and dilation of the proximal ureter were visualized. Calicectasis and renal parenchymal thinning were NOT visualized. The bladder has a normal sonographic appearance and the amniotic fluid volume is normal US 37 w There is right AP renal pelvis diameter dilation 16 mm with caliectasis and hydroureter, there is mild isolated left AP renal pelvis diameter dilation 8 mm without caliectasis. The left ureter is visualized. The renal parenchyma, bladder and fluid appear normal. HISTORY REVIEWED (electronic chart updated): PAST MEDICAL HISTORY Diagnosis Date renal anomaly, single gestation 03/27/2022 H/O sickle cell trait father has trait Herpes simplex virus (HSV) infection 2020 none current per patient History of anxiety History of depression PAST SURGICAL HISTORY Procedure Laterality Date REMOVAL GALLBLADDER 12/20/2016 FAMILY HISTORY Problem Relation Age of Onset Alcohol/Drug Mother other (Mental disorder unspecific) Mother other (ADHD) Sister other (ADHD) Brother Social History Tobacco Use Smoking status: Never Smokeless tobacco: Never Vaping Use Vaping Use: Never used Substance Use Topics Alcohol use: No Drug use: No Current Outpatient Medications Medication Sig acyclovir (ZOVIRAX) 400 mg tablet Take 1 tablet by mouth three times daily. HYDROXYprogest,PF,,preg presv, (SLOANE, PF,) 275 mg/1.1 mL auto-injector Inject 1.1 mL subcutaneously one time a week for 21 doses. PNV no.95/ferrous fum/folic ac ( ORAL) Take by mouth. Current Facility-Administered Medications Medication Dose Route Frequency HYDROXYprogest(PF)(preg presv) AutoInjector 275 mg (SLOANE) 275 mg SUBCUTANEOUS 1/WK ALLERGIES Allergen Reactions Amoxicillin Hives Metoclopramide Intolerance REVIEW OF SYSTEMS: All other ROS: negative As noted in HPI PHYSICAL EXAMINATION: VIDEO EXAM: (if completed, performed via video enabled technology) GENERAL: alert and appropriate, in no distress, well-hydrated, well nourished, and happy, smiling, interactive ASSESSMENT: Male fetus with BILATERAL renal dilation and dilated ureters, reassuring normal bladder and no signof keyhole PLAN: Initially wanted to deliver at [place], however given limited resources there and our other regional sites, it would seem safer and more appropriate to have the baby at Currently scheduled for induction tomorrow Aware will need to have catheter placed, started on ppx abx and will need RBUS and VCUG Aware that will likely be from the patient as he will be in the NICU They do want for him to be circumcised I spent a total of 30 minutes on the date of the service which included preparing to see the patient, [id number] patient care, completing clinical documentation, obtaining and/or reviewing separately obtained history, communicating results to the patient/family/caregiver, and care coordination (no t separately reported) Leelee Up MD [facility] History of Present illness Narrative* Loren De Dios APRN.CNM - 05/10/2022 11:03 AM EDT NST SUMMARY PROVIDER ASSESSMENT AND INTERPRETATION Raymond Brownlee is a 22 year old female, , who is at 38w5d with an LOC of 05/19/2022, by Ultrasound dating method. Indications for NST: Obesity and Other: renal anomaly Baseline: 140 Variability: Moderate Accelerations: Present 15 X 15 Decelerations: None Contractions: TOCO: irritability Interpretation: Category I and Reactive SIGNATURE: Loren De Dios APRN.CNM documented in this encounterMer[facility]09-[facility]22 Miscellaneous Notes* Quick Notes - Loren De Dios APRN.CNM - 05/10/2022 10:46 AM EDT S: Raymond Brownlee is a 22 year old female who presents at 38.5 weeks gestation for a routine visit and NST. She reports will be induced at [facility] in 2 days (39 weeks). Occasional contractions. Positive movement. Feeling good, no complaints. O: See flow sheet Gen: No apparent distress Abd: Gravid, non tender ASSESSMENT/PLAN: 1. 38 weeks gestation of - ICD9: V22.2, ICD10: Z3A.38 (primary diagnosis) - URINE OB DIP B/O 2. Pyelectasis of fetus on ultrasound - ICD9: 796.5, ICD10: O35.8XX0 - care plan in place- patient to deliver at [facility] 39 weeks 3. High-risk in third trimester - ICD9: V23.9, ICD10: O09.93 Labor precautions and kick counts reviewed. RTO- 2 weeks post or sooner if needed Loren De Dios APRN.CNM documented in this encounterMercy Hospital09-28-2022 Instructions* Patient Instructions* Roger Shetty Mouthpiece Maker - 05/10/2022 9:59 AM EDT SEQUENTIAL SCREENINGS [facility] offers sequential screenings for women who are interested in screenings for chromosomal abnormalities and certain defects during a . The sequential screen combinesultrasound and blood tests to determine the risk of chromosomal abnormalities, including Down's Syndrome (Trisomy 21) and Trisomy 18, as well as open neural tube defects including spina bifida. Ultrasound examination is performed between 11 weeks and 13 weeks gestational age. Blood tests are drawn after the ultrasound and again later in the between 15 and 21 weeks gestational age. Please let your physician know if you are interested in this testing. It will require an appointment withour premises technician. This is not an ultrasound performed by a physician in our office during a routine visit. SIGNS AND SYMPTOMS OF LABOR 1. Contractions every 10 minutes or more often 2. Clear, pink, or brownish fluid (water) leaking from vagina 3. Feeling that baby is pushing down, pressure 4. Low, dull backache 5. Cramps that feel like a period 6. Cramps with or without diarrhea If you notice any of the above symptoms, contact our office at [phone] and ask to speak with anurse. After hours, you can call doctors registry at [phone] OR call [facility] at [phone] ask to have the doctor elevator constructor paged. If you consider this an emergency, dial 9--1 or go to your nearest emergency department. NEED HELP? Are you dealing with a violent or abusive relationship? Are you a victim of rape or sexual assult? Call [facility] ([place]) 24 hour Crisis Hotline: 952.248.4412 or 405-441-1210. MANUAL Your Guide to a Healthy manual is now on-line. Visit [email or web address] to download your free copy documented in this encounterMercy Hospital09-[facility]22 Miscellaneous Notes* Telephone Encounter - Jessica Henry RN - 05/04/2022 11:14 AM EDT called pt, per dr jones, IOL in [facility] Saturday 05/12 at 8am, pt accepts this appt date/time. Pt has my contact information should she have any questions. At this time, pt denies questions and verbalizes understanding. Jessica Henry RN * Telephone Encounter - Jessica Henry RN - 05/04/2022 10:57 AM EDT pt called reviewed options for delivery at [facility] vs [facility] as proposed by [facility] and Peds Neph in staff message dated 05/03. Pt states she has a [place] [address] to [facility] and would prefer IOL at [facility] to avoid transfer of baby from [facility] if needed. also discussed [facility] with peds neph next week, pt accepts 05/08 at 11:[address] tse. Advise dpt I would get back to her re: IOL detail [facility], will contact Dr jones for delivery timing. Pt has my contact information should she have any questions. At this time, pt denies questions and verbalizes understanding. Jessica Henry RN * Telephone Encounter - Jessica Henry RN - 05/04/2022 10:43 AM EDT Call to patient and message left asking for her to return my call in regards to scheduling her for a peds neph consult virtually prior to delivery . My contact information was provided for her to return my call. Jessica Henry RN documented in this encounterMercy Hospital09-[facility]-2022 Miscellaneous Notes* Quick Notes - Loren De Dios APRN.CNM - 05/02/2022 9:36 AM EDT S: Raymond Brownlee is a 22 year old female who presents at 37.4 weeks for routine visit. Just completed BPP 03/20, Growth US- 71%, JUAN normal. Denies any cramps or contractions. Denies headache, visual changes, chest pain, shortness of breath, vaginal bleeding, leakage of fluid, or dysuria. Feeling well, no complaints. O: See flow sheet Gen: No apparent distress Abd: Gravid, nontender ASSESSMENT/PLAN: 1. 37 weeks gestation of - ICD9: V22.2, ICD10: Z3A.37 (primary diagnosis) - URINE OB DIP B/O 2. Pyelectasis of fetus on ultrasound - ICD9: 796.5, ICD10: O35.8XX0 3. High-risk in third trimester - ICD9: V23.9, ICD10: O09.93 P: 1) Labor precautions reviewed and when to call 2) RTO 1 week for KASSIE with NST or sooner if needed Loren De Dios APRN.CNM documented in this encounterMercy Hospital09-[facility]22 Instructions* Patient Instructions* Bette Weir MA - 05/02/2022 9:12 AM EDT SEQUENTIAL SCREENINGS [facility] offers sequential screenings for women who are interested in screenings for chromosomal abnormalities and certain defects during a . The sequential screen combinesultrasound and blood tests to determine the risk of chromosomal abnormalities, including Down's Syndrome (Trisomy 21) and Trisomy 18, as well as open neural tube defects including spina bifida. Ultrasound examination is performed between 11 weeks and 13 weeks gestational age. Blood tests are drawn after the ultrasound and again later in the between 15 and 21 weeks gestational age. Please let your physician know if you are interested in this testing. It will require an appointment withour premises technician. This is not an ultrasound performed by a physician in our office during a routine visit. SIGNS AND SYMPTOMS OF LABOR 1. Contractions every 10 minutes or more often 2. Clear, pink, or brownish fluid (water) leaking from vagina 3. Feeling that baby is pushing down, pressure 4. Low, dull backache 5. Cramps that feel like a period 6. Cramps with or without diarrhea If you notice any of the above symptoms, contact our office at [phone] and ask to speak with anurse. After hours, you can call doctors registry at [phone] OR call [facility] at [phone] ask to have the doctor elevator constructor paged. If you consider this an emergency, dial 6-7-6 or go to your nearest emergency department. NEED HELP? Are you dealing with a violent or abusive relationship? Are you a victim of rape or sexual assult? Call [facility] ([place]) 24 hour Crisis Hotline: 901.309.3986 or 860-784-9968. MANUAL Your Guide to a Healthy manual is now on-line. Visit [email or web address] to download your free copy documented in this encounterMercy Hospital09-13-[facility]22 History of Present illness Narrative* Loren De Dios APRN.RAYMOND - 04/25/2022 10:06 AM EDT NST SUMMARY PROVIDER ASSESSMENT AND INTERPRETATION Raymond Brownlee is a 22 year old female, , who is at 36w4d with an LOC of 05/19/2022, by Ultrasound dating method. Indications for NST: Obesity- pylectasis Baseline: 155 Variability: Moderate Accelerations: Present 15 X 15 Decelerations: None Contractions: TOCO: 1 contraction noted Interpretation: Category I and Reactive SIGNATURE: Loren De Dios APRN.CNM documented in this encounterMercy Hospital09-13-2022 Miscellaneous Notes* Quick Notes - Loren De Dios APRN.CNM - 04/25/2022 10:03 AM EDT S: Raymond Brownlee is a 22 year old female who presents at 36.4 weeks gestation for a routine visit. Just completed NST- reactive and Cat. 1 tracing. Continues to feel occasional contractions. Denies headache, visual changes, chest pain, shortness of breath, vaginal bleeding, leakage of fluid, or dysuria. Feeling well, no complaints. Requests CE today with GBS screening. O: See flow sheet Gen: No apparent distress Abd: Gravid, non tender TAUS- confirms vertex position ASSESSMENT/PLAN: 1. 36 weeks gestation of - ICD9: V22.2, ICD10: Z3A.36 (primary diagnosis) - URINE OB DIP B/O - ROUTINE, GROUP B STREP PCR 2. Pyelectasis of fetus on ultrasound - ICD9: 796.5, ICD10: O35.8XX0 3. High-risk in third trimester - ICD9: V23.9, ICD10: O09.93 - NST's weekly P: 1) PTL precautions reviewed and when to call 2) RTO 1 week or sooner if needed Loren De Dios APRN.CNM documented in this encounterMer[facility]09-13-2022 Instructions* Patient Instructions* Matilde Wade Ma - 04/25/2022 9:17 AM EDT SEQUENTIAL SCREENINGS [facility] offers sequential screenings for women who are interested in screenings for chromosomal abnormalities and certain defects during a . The sequential screen combinesultrasound and blood tests to determine the risk of chromosomal abnormalities, including Down's Syndrome (Trisomy 21) and Trisomy 18, as well as open neural tube defects including spina bifida. Ultrasound examination is performed between 11 weeks and 13 weeks gestational age. Blood tests are drawn after the ultrasound and again later in the between 15 and 21 weeks gestational age. Please let your physician know if you are interested in this testing. It will require an appointment withour premises technician. This is not an ultrasound performed by a physician in our office during a routine visit. SIGNS AND SYMPTOMS OF LABOR 1. Contractions every 10 minutes or more often 2. Clear, pink, or brownish fluid (water) leaking from vagina 3. Feeling that baby is pushing down, pressure 4. Low, dull backache 5. Cramps that feel like a period 6. Cramps with or without diarrhea If you notice any of the above symptoms, contact our office at [phone] and ask to speak with anurse. After hours, you can call doctors registry at [phone] OR call [facility] at [phone] ask to have the doctor elevator constructor paged. If you consider this an emergency, dial 1-0 or go to your nearest emergency department. NEED HELP? Are you dealing with a violent or abusive relationship? Are you a victim of rape or sexual assult? Call [facility] ([place]) 24 hour Crisis Hotline: 393.486.9097 or 613-298-3673. MANUAL Your Guide to a Healthy manual is now on-line. Visit [email or web address] to download your free copy documented in this encounterMercy Hospital09-08-2022 History of Present illness Narrative* Loren De Dios APRN.RAYMOND - 04/20/2022 3:49 PM EDT NST SUMMARY PROVIDER ASSESSMENT AND INTERPRETATION Raymond Brownlee is a 22 year old female, , who is at 35w6d with an LOC of 05/19/2022, by Ultrasound dating method. Indications for NST: Decreased Movement Baseline: 140 Variability: Moderate Accelerations: Present 15 X 15 Decelerations: None Contractions: TOCO: None Interpretation: Category I and Reactive SIGNATURE: Loren De Dios APRN.CNM documented in this encounterMercy Hospital09-08-2022 Miscellaneous Notes* Quick Notes - Loren De Dios APRN.CNM - 04/20/2022 1:56 PM EDT S: Raymond Brownlee is a 22 year old female who presents at 35.6 weeks as an add on visit for decreased movement, N/V and cramping. NST today reactive, Cat. 1 tracing with no contractions noted. She has N/V for the past two days. Last night was finally able to keep liquids down and today was able to eat. Feeling much better. Encouraged increasing fluid intake and adding Gatorade or Powerade. Denies any cramping today. Positive but decreased movement. Has felt movement since arrival here. O: See flow sheet Gen: No apparent distress Abd: Gravid, non tender ASSESSMENT/PLAN: 1. 35 weeks gestation of - ICD9: V22.2, ICD10: Z3A.35 - URINE OB DIP B/O 2. Decreased movement - Reviewed kick counts PTL precautions given and when to call RTO 1 week for scheduled visit Loren De Dios APRN.CNM documented in this encounterMercy Hospital09-08-2022 Instructions* Patient Instructions* Maru Raines Ma - 04/20/2022 1:07 PM EDT SEQUENTIAL SCREENINGS [facility] offers sequential screenings for women who are interested in screenings for chromosomal abnormalities and certain defects during a . The sequential screen combinesultrasound and blood tests to determine the risk of chromosomal abnormalities, including Down's Syndrome (Trisomy 21) and Trisomy 18, as well as open neural tube defects including spina bifida. Ultrasound examination is performed between 11 weeks and 13 weeks gestational age. Blood tests are drawn after the ultrasound and again later in the between 15 and 21 weeks gestational age. Please let your physician know if you are interested in this testing. It will require an appointment withour premises technician. This is not an ultrasound performed by a physician in our office during a routine visit. SIGNS AND SYMPTOMS OF LABOR 1. Contractions every 10 minutes or more often 2. Clear, pink, or brownish fluid (water) leaking from vagina 3. Feeling that baby is pushing down, pressure 4. Low, dull backache 5. Cramps that feel like a period 6. Cramps with or without diarrhea If you notice any of the above symptoms, contact our office at [phone] and ask to speak with anurse. After hours, you can call doctors registry at [phone] OR call [facility] at [phone] ask to have the doctor elevator constructor paged. If you consider this an emergency, dial 9-1-0 or go to your nearest emergency department. NEED HELP? Are you dealing with a violent or abusive relationship? Are you a victim of rape or sexual assult? Call [facility] ([place]) 24 hour Crisis Hotline: 118.674.2804 or 831-742-1747. MANUAL Your Guide to a Healthy manual is now on-line. Visit [email or web address] to download your free copy documented in this encounterMercy Hospital08-31-2022 Miscellaneous Notes* Quick Notes - Angely Geronimo MD - 04/12/2022 10:56 AM EDT SW- Pt doing well. No regular ctx, vb, lof. Good FM. PE: Gen- NAD, well appearing Abd- Soft, gravid, NT Ext- No edema See flowsheet A/p 34 wk gestation - Acyclovir sent for h/o genital herpes - Cont IM progesterone for h/o PPROM - pyelectasis: Plans for delivery at [facility]. Recommend calling [facility] to discuss need for US shortly after delivery. She will call this week. Weekly NST's ordered to start at 36weeks. To schedule repeat US in 3 weeks - RTO 2 wks Angely Geronimo DO documented in this encounterMercy Hospital08-31-2022 Instructions* Patient Instructions* Bette Weir MA - 04/12/2022 10:29 AM EDT SEQUENTIAL SCREENINGS [facility] offers sequential screenings for women who are interested in screenings for chromosomal abnormalities and certain defects during a . The sequential screen combinesultrasound and blood tests to determine the risk of chromosomal abnormalities, including Down's Syndrome (Trisomy 21) and Trisomy 18, as well as open neural tube defects including spina bifida. Ultrasound examination is performed between 11 weeks and 13 weeks gestational age. Blood tests are drawn after the ultrasound and again later in the between 15 and 21 weeks gestational age. Please let your physician know if you are interested in this testing. It will require an appointment withour premises technician. This is not an ultrasound performed by a physician in our office during a routine visit. SIGNS AND SYMPTOMS OF LABOR 1. Contractions every 10 minutes or more often 2. Clear, pink, or brownish fluid (water) leaking from vagina 3. Feeling that baby is pushing down, pressure 4. Low, dull backache 5. Cramps that feel like a period 6. Cramps with or without diarrhea If you notice any of the above symptoms, contact our office at [phone] and ask to speak with anurse. After hours, you can call doctors registry at [phone] OR call [facility] at [phone] ask to have the doctor elevator constructor paged. If you consider this an emergency, dial 9-1- or go to your nearest emergency department. NEED HELP? Are you dealing with a violent or abusive relationship? Are you a victim of rape or sexual assult? Call [facility] ([facility] 24 hour Crisis Hotline: 258.849.9925 or 902-187-5841. MANUAL Your Guide to a Healthy manual is now on-line. Visit [email or web address] to download your free copy documented in this encounterMercy Hospital08-30-2022 Miscellaneous Notes* Telephone Encounter - Sanjay Whalen MD - 04/11/2022 2:56 PM EDT Done Sanjay Whalen MD * Telephone Encounter - Margy Henry RN - 04/11/2022 2:[address] order for f/u ultrasound in 3 weeks for suspected UPJ obstruction documented in this encounterMercy Hospital08-30-2022 Miscellaneous Notes* Telephone Encounter - Jessica Henry RN - 04/11/2022 1:56 PM EDT called pt after US today to help schedule next growth US. Pt states the [place] office has told herthey will but her on Dr Travis schedule 04/25. That appt is not yet scheduled but I will keep eye on it and call to schedule if not done by 04/12. Pt has my contact information should she have any questions. At this time, pt denies questions and verbalizes understanding. Jessica Henry RN documented in this encounterMercy Hospital08-30-2022 Miscellaneous Notes* Quick Notes - Jaylen Ramires MD - 04/11/2022 11:48 AM EDT Patient here for US today to follow-up bilateral urinary tract dilation - overall stable appearance with R>>L (see report for details) Recommend follow-up US in 3 weeks, weekly surveillance from 36 weeks until delivery (office NST with primary OB provider). Spoke with our coordinators today who received follow-up plan from Pediatric Nephrology/Urology - patient stable to deliver in [place] and imaging recommended 1-2 days following hospital discharge. Jaylen Ramires MD I spent a total of 15 minutes on the date of the service which included preparing to see the patient, bebi-qs-heej patient care, completing clinical documentation, counseling and educating the patient/family/caregiver, communicating results to the patient/family/caregiver, and care coordination (not separately reported). documented in this encounterMercy Hospital08-30-2022 Instructions* Patient Instructions* Louise Pugh Ma - 04/11/2022 10:19 AM EDT SEQUENTIAL SCREENINGS [facility] offers sequential screenings for women who are interested in screenings for chromosomal abnormalities and certain defects during a . The sequential screen combinesultrasound and blood tests to determine the risk of chromosomal abnormalities, including Down's Syndrome (Trisomy 21) and Trisomy 18, as well as open neural tube defects including spina bifida. Ultrasound examination is performed between 11 weeks and 13 weeks gestational age. Blood tests are drawn after the ultrasound and again later in the between 15 and 21 weeks gestational age. Please let your physician know if you are interested in this testing. It will require an appointment withour premises technician. This is not an ultrasound performed by a physician in our office during a routine visit. SIGNS AND SYMPTOMS OF LABOR 1. Contractions every 10 minutes or more often 2. Clear, pink, or brownish fluid (water) leaking from vagina 3. Feeling that baby is pushing down, pressure 4. Low, dull backache 5. Cramps that feel like a period 6. Cramps with or without diarrhea If you notice any of the above symptoms, contact our office at [phone] and ask to speak with anurse. After hours, you can call doctors registry at [phone] OR call [facility] at [phone] ask to have the doctor elevator constructor paged. If you consider this an emergency, dial 8--7 or go to your nearest emergency department. NEED HELP? Are you dealing with a violent or abusive relationship? Are you a victim of rape or sexual assult? Call [facility] ([place]) 24 hour Crisis Hotline: 432.533.4802 or 255-157-2070. MANUAL Your Guide to a Healthy manual is now on-line. Visit [email or web address] to download your free copy documented in this encounterMercy Hospital08-12-2022 History of Present illness Narrative* Jose Daniel Bridges MD - 03/24/2022 4:36 PM EDT PEDIATRIC/ SURGERY CONSULT SERVICE DATE: 03/24/2022 SERVICE TIME: 1 pm Date of : 2000 Age: [age] year old Sex: female Primary Care Physician: No primary care provider on file. Consulting Surgeon: Jose Daniel Bridges MD Subjective Consultation for this evaluation was requested by Dr. Yuliya Jones. Reason for consultation: fetus with possible bowel and urinary dilation Recommendations will be communicated back to the requesting physician by way of shared medical record or letter. Ms. Brownlee is here with her significant other and reports being at 32 weeks carrying a male fetus with abnormalities. She reports they were detected about 20 weeks. She has been getting care in [place]. No other prognancy problems. No known fam hx of defects, though doesn't know her side of family. Objective MATERNAL HISTORY: Mother is a 22 year old female, , who is at general anesthesia with an LOC of 05/19/2022, by Ultrasound dating method. LMP: No LMP recorded (lmp unknown). Patient is . Maternal Hospital Problems: ACTIVE PROBLEM LIST Family History of Sickle Cell Trait S/P Cholecystectomy History of Premature Rupture of Membranes (Pprom) History of Depression Date of Last Menstrual Period (Lmp) Unknown Irregular Periods Supervision of Other High Risk , Antepartum Pyelectasis of Fetus On Ultrasound Maternal Meds: Current Outpatient Medications on File Prior to Visit Medication Sig HYDROXYprogest,PF,,preg presv, (SLOANE, PF,) 275 mg/1.1 mL auto-injector Inject 1.1 mL subcutaneously one time a week for 21 doses. PNV no.95/ferrous fum/folic ac ( ORAL) Take by mouth. Current Facility-Administered Medications on File Prior to Visit Medication HYDROXYprogest(PF)(preg presv) AutoInjector 275 mg (SLOANE) Current Facility-Administered Medications Medication Dose Route Frequency HYDROXYprogest(PF)(preg presv) AutoInjector 275 mg (SLOANE) 275 mg SUBCUTANEOUS 1/WK complications: None The following was discussed with mother and father 03/24/2022 3:40 PM - Radiology, Oru In Impression IMPRESSION: * Right ureteropelvic junction obstruction, with AP renal pelvis diameter of 15 mm (UTD A2-3). * Left renal pelviectasis. * No bowel dilation. Application Administrator: PSCB Transcribe Date/Time: Mar 24 2022 3:18P Dictated by : CARRIE BERMEO MD This examination was interpreted and the report reviewed and electronically signed by: CARRIE BERMEO MD on Mar 24 2022 3:38PM EST Results-Findings * * *Final Report* * * DATE OF EXAM: Mar 24 2022 12:32PM QBM 0717 - MRI FETUS WO IVCON / PROCEDURE REASON: Hydronephrosis with ureteropelvic junction (UPJ) obstruction * * * * Physician Interpretation * * * * MRI: CLINICAL HISTORY: UPJ obstruction. Concern for bowel dilation. COMPARISON: Obstetric ultrasound 03/14/2022. PROCEDURE COMMENTS: MRI was performed without contrast to evaluate the uterus and fetus. This information is essential for the proper counseling and clinical care of the fetus by the care team. FINDINGS: The gestational age of the is 32 weeks and 0 days by ultrasound with EDC of 05/19/2022. Maternal findings: L5-S1 disc desiccation. Findings of : : Quiñones. Placental location: Left fundal Placenta previa: No. Placental signal: Appropriate for gestational age Placental thickness: 4 cm. Uterus: Unremarkable Cervix: Closed. Cervical length: 5.2 cm. Findings: position: Vertex. motion: While not specifically assessed, motion is seen throughout the examination. Amniotic fluid volume: Appropriate for gestational age Number of vessels in umbilical cord: Three. Umbilical cord insertion site: Paracentral/peripheral, image number 14, series 23. Brain: Head size/shape: Appropriate Sulcation: Normal for gestational age Ventricles: Normal Cavum septum pellucidum: Present Germinal matrix: Normal Cerebral venous sinuses: Nondilated Brain parenchyma signal: Normal for gestational age Corpus callosum: Apparently complete Brainstem morphology: Normal Cerebellum: Normal morphology Cerebellar vermis: Normal morphology Craniocervical junction: Normal Face/Neck: Oropharynx/cervical airway: Normal Facial profile: Normal Eyes: Appropriate. Lips and nose: Normal Mandible: Normal Ears: Normal Spine: Vertebrae: Normal Spinal canal: Normal Spinal cord: Normal Conus position: Normal Chest: Chest size/shape: Normal Airway: Patent to the level of the mainstem bronchi. Mediastinum/thymus: Normal Lungs: Normal Heart: Leftward facing cardiac apex. Aorta: Left-sided descending thoracic aorta. Abdomen: Abdominal wall/soft tissues: Normal Situs: Normal Liver: Normal Gallbladder: Present Spleen: Present Stomach: Normally distended Small bowel: Nondilated Colon: Nondilated Rectal cul-de-sac length: 15 mm. Right kidney: Ballooning of the renal pelvis with central and peripheral calyceal dilation. AP renal pelvis diameter 15 mm. The ureter is not dilated. Left kidney: Pelviectasis. AP renal pelvis diameter 5 mm. Urinary bladder: Normally distended Extremities: Grossly normal. Note: Detailed evaluation of the extremities is limited on MRI. The MRI images were reviewed Assessment: 32 week male fetus with what looks like right UPJ obstruction. The left kidney appears normal. There is no evidence of bowel abnormalities on the MRI study today. The amniotic fluid and bladder appear normal suggesting good urine output. We discussed the role of pediatric urology, timing of operation. It is not predicted the fetus/ will have symptoms. It seems it would be fine to deliver at location of choice. Will benefit from consultation with pediatric urology. I made a diagram to describe anatomy. Brief discussion on surgical care, though deferred to pediatric urology/ Dr. Up. Plan: Consultation with pediatric urology Likely ok to deliver in [place] will benefit from renal ultrasound and f/up with urology shortly after to discuss management Consideration for abx prophylaxis from urology Referral back to me/ pediatric surgery as needed for any GI abnormalities- though not anticipated based on what we see today Physician kiam-rh-efek total time, including discussion: 60 minutes, more than 50 % of time devotedto coordination of care and/or counseling. SIGNATURE: Jose Daniel Bridges MD PATIENT NAME: Raymond Brownlee DATE: March 27, 2022 TIME: 4:36 PM documented in this encounterMercy Hospital08-12-2022 History of Present illness Narrative* You Carrizales RT(R) - 03/24/2022 10:20 AM EDT Radiology Service Progress Note PATIENT NAME: Raymond Brownlee DATE OF SERVICE: March 24, 2022 TIME: 12:34 PM PATIENT IDENTITY VERIFICATION COMPLETED USING TWO (2) IDENTIFIERS: Name and Date of confirmedby patient verbally. FALL SCREENING: Has the patient had 2 falls in the last year or 1 fall with injury or currently using an Ambulatory Assistive Device (Walker, Cane, Wheelchair, Crutches, etc.)? No PATIENT GENDER DATA: Female. status: : Yes. Radiologist notified: Dr Bermeo status: NO. PATIENT RELEVANT IMPLANT DATA REVIEWED: Yes RADIOLOGY DEPARTMENT: MR; Exam(s) Completed: PERIPHERAL IV DATA: Not applicable SIGNED BY: You Carrizales RT(R) March 24, 2022 12:34 PM documented in this encounterMercy Hospital08-10-2022 Miscellaneous Notes* Quick Notes - Casi Navarro MD - 03/22/2022 3:39 PM EDT DM-Pt doing well. Denies vaginal Bleeding, Leaking fluid, or regular Contractions. Pt reports good movement Physical Exam: Gen: female in no apparent distress Abd: soft, Gravid. Non tender to palpation. See flow sheet A/P: @ 31.5 weeks - pyelectasis , renal dilation 1) MRI and care team meeting this week Sunday 2) kick counts reviewed 3) RTO 2 weeks 4) follow up ultrasound scheduled 5) continue asa 6) Continue [place] injections Casi Das MD documented in this encounterMercy Hospital08-10-2022 Instructions* Patient Instructions* Maru Raines Ma - 03/22/2022 3:24 PM EDT SEQUENTIAL SCREENINGS [facility] offers sequential screenings for women who are interested in screenings for chromosomal abnormalities and certain defects during a . The sequential screen combinesultrasound and blood tests to determine the risk of chromosomal abnormalities, including Down's Syndrome (Trisomy 21) and Trisomy 18, as well as open neural tube defects including spina bifida. Ultrasound examination is performed between 11 weeks and 13 weeks gestational age. Blood tests are drawn after the ultrasound and again later in the between 15 and 21 weeks gestational age. Please let your physician know if you are interested in this testing. It will require an appointment withour premises technician. This is not an ultrasound performed by a physician in our office during a routine visit. SIGNS AND SYMPTOMS OF LABOR 1. Contractions every 10 minutes or more often 2. Clear, pink, or brownish fluid (water) leaking from vagina 3. Feeling that baby is pushing down, pressure 4. Low, dull backache 5. Cramps that feel like a period 6. Cramps with or without diarrhea If you notice any of the above symptoms, contact our office at [phone] and ask to speak with anurse. After hours, you can call doctors registry at [phone] OR call [facility] at [phone] ask to have the doctor elevator constructor paged. If you consider this an emergency, dial 1-0-2 or go to your nearest emergency department. NEED HELP? Are you dealing with a violent or abusive relationship? Are you a victim of rape or sexual assult? Call [facility] ([place]) 24 hour Crisis Hotline: 764.275.1802 or 831-272-6610. MANUAL Your Guide to a Healthy manual is now on-line. Visit [email or web address] to download your free copy documented in this encounterMercy Hospital08-03-2022 Miscellaneous Notes* Telephone Encounter - Jessica Henry RN - 03/15/2022 10:55 AM EDT Call to Raymond at the request of Dr Jones to introduce myself as foster care therapist and the [facility]. She was able to tell me what the findings were, accepted cconsults at [facility] for finding of prominent small bowel and pyelectasis. We discussed dates and time for appts, she accepted MRI and consult with Dr Bridges on 03/24. Discussion of safety of MRI in . No radiation, IV, contrast, or medications to be administered. Review of positioning and anticipated length of test. Patient declines any metal implants and wishes to proceed with scheduling. Reviewed arrival 30 min prior to the test. Recommended no meals 2hours prior, no caffeine the day of the MRI, though may drink water up to the time of the MRI. No further questions, I will call with date/time once scheduled. Discussion of the services offered including support, education, coordination of care and appointment scheduling. Directions, parking and day of appointment information provided to pt. My contact information was provided and patient was invited to call with any questions or concerns.Also reviewed the multi-disciplinary team meetings in which patient's case will be discussed to optimize care planning. Patient's questions answered to the best of my ability. Jessica Henry RN documented in this encounterMercy Hospital08-02-2022 History of Present illness Narrative* Yuliya Jones MD - 03/14/2022 12:44 PM EDT [facility] Progress note Raymond is 22yo @ 30w4d presenting for growth and discuss suspected urinary tract dilation She is doing well today without complaints. History notable for 25w PPROM delivery at 32w, daughter with club foot but in very good health now. BP 90/60 Wt 193 lb 6.4 oz (87.7 kg) LMP (LMP Unknown) BMI 35.37 kg/m A&O, NAD Abd soft, nontender during US exam US shows: 1. Single, live, intrauterine . 2. Adequate interval growth. 3. Amniotic fluid is normal amount. 4. The placenta is posterior, fundal without evidence of a previa. 5. There is bilateral urinary tract dilation, R>L: Right kidney: 8.9 mm with caliectasis, ureter 3.4mm, there are no cystic changes with renal parenchyma visualized Left kidney: 8.2 mm, no caliectasis, ureter 3.6mm, there are no cystic changes, renal parenchyma appears normal The small bowel appears prominent measuring 8-9mm in diameter The bladder appears grossly normal 6. Otherwise normal limited anatomy as detailed below. Discussed ultrasound results with patient including possible etiologies including (not limited to) - vesicoureteral obstruction, posterior urethral valves (male fetus), duplicated collecting system, ureteropelvic junction obstruction. Discussed consultation with pediatric urology and referral to care center as post- imaging will be necessary. Discussed possible delivery in [place], will discuss at care and with pediatric team. MRI may be of benefit due to bowel finding of uncertain significance, will discuss at care conference next week. Medical Decision Making: Problems: Moderate: New problem with uncertain prognosis Risk: Moderate: Moderate risk from testing/treatment Medical Decision Making Level: 4 - Moderate documented in this encounterMer[facility]07-13-2022 Miscellaneous Notes* Quick Notes - Casi Navarro MD - 02/22/2022 3:45 PM EDT DM-Pt doing well. Denies vaginal Bleeding, Leaking fluid, or regular Contractions. Pt reports good movement Physical Exam: Gen: female in no apparent distress Abd: soft, Gravid. Non tender to palpation. See flow sheet A/P: @ 27.5 weeks 1) 28 week labs today 2) desires sterilization- title 19 signed today 3) Declines Larc- form signed. 4) tdap today 5) ptyalectasis - renal cyst- will get next scan with M. Casi Das MD documented in this encounterMercy Hospital07-13-2022 History of Present illness Narrative* Maru Raines Ma - 02/22/2022 3:24 PM EDT Patient identified by name and date of . Raymond Brownlee presents today for a vaccination of Tdap. Patient denies an allergy to latex: yes Patient denies a severe (life-threatening) allergy to a previous dose of Tdap, DTP, DTaP, DT or Td vaccine. Yes Patient denies history of epilepsy or neurological problems: Yes Patient is afebrile and denies being moderately or severely ill: Yes Patient denies history of Guillain-[place] Syndrome (a severe paralytic illness): Yes Tdap Adacel injection was given without incident. See immunizations for details of immunizations administered today. VIS sheet provided: Yes Provider Ramon was present in office at time of injection. Maru Raines Ma documented in this encounterMercy Hospital07-13-2022 Instructions* Patient Instructions* Maru Raines Ma - 02/22/2022 2:41 PM EDT SEQUENTIAL SCREENINGS [facility] offers sequential screenings for women who are interested in screenings for chromosomal abnormalities and certain defects during a . The sequential screen combinesultrasound and blood tests to determine the risk of chromosomal abnormalities, including Down's Syndrome (Trisomy 21) and Trisomy 18, as well as open neural tube defects including spina bifida. Ultrasound examination is performed between 11 weeks and 13 weeks gestational age. Blood tests are drawn after the ultrasound and again later in the between 15 and 21 weeks gestational age. Please let your physician know if you are interested in this testing. It will require an appointment withour premises technician. This is not an ultrasound performed by a physician in our office during a routine visit. SIGNS AND SYMPTOMS OF LABOR 1. Contractions every 10 minutes or more often 2. Clear, pink, or brownish fluid (water) leaking from vagina 3. Feeling that baby is pushing down, pressure 4. Low, dull backache 5. Cramps that feel like a period 6. Cramps with or without diarrhea If you notice any of the above symptoms, contact our office at [phone] and ask to speak with anurse. After hours, you can call doctors registry at [phone] OR call [facility] at [phone] ask to have the doctor elevator constructor paged. If you consider this an emergency, dial 9-- or go to your nearest emergency department. NEED HELP? Are you dealing with a violent or abusive relationship? Are you a victim of rape or sexual assult? Call [facility] ([place]) 24 hour Crisis Hotline: 855.444.2490 or 628-072-2515. MANUAL Your Guide to a Healthy manual is now on-line. Visit [email or web address] to download your free copy documented in this encounterMercy Hospital06-15-2022 Miscellaneous Notes* Quick Notes - Angely Geronimo MD - 01/25/2022 1:34 PM EDT SW- Dizziness is improving and now only having it once a day. No other associated symptoms. Dizziness resolves after 1-2 min. She feels increased hydration has been helping. She notices heartburn as well. No CP, SOB, palpitations. No abd pain, vb, lof. Good FM. PE: Gen- NAD, well appearing Abd- Soft, gravid, NT Ext- No edema See flowsheet A/p 23 wk gestation - H/o PPROM: Cont IM progesterone - Dizziness: Improving and encouraged hydration, compression socks, avoiding prolonged standing andquick position changes - Ultrasound ordered - 28 wk labs ordered - RTO 4 wks for US, labs and OB visit Angely Geronimo DO documented in this encounterMercy Hospital06-15-2022 Instructions* Patient Instructions* Bette Weir MA - 01/25/2022 1:13 PM EDT SEQUENTIAL SCREENINGS [facility] offers sequential screenings for women who are interested in screenings for chromosomal abnormalities and certain defects during a . The sequential screen combinesultrasound and blood tests to determine the risk of chromosomal abnormalities, including Down's Syndrome (Trisomy 21) and Trisomy 18, as well as open neural tube defects including spina bifida. Ultrasound examination is performed between 11 weeks and 13 weeks gestational age. Blood tests are drawn after the ultrasound and again later in the between 15 and 21 weeks gestational age. Please let your physician know if you are interested in this testing. It will require an appointment withour premises technician. This is not an ultrasound performed by a physician in our office during a routine visit. SIGNS AND SYMPTOMS OF LABOR 1. Contractions every 10 minutes or more often 2. Clear, pink, or brownish fluid (water) leaking from vagina 3. Feeling that baby is pushing down, pressure 4. Low, dull backache 5. Cramps that feel like a period 6. Cramps with or without diarrhea If you notice any of the above symptoms, contact our office at [phone] and ask to speak with anurse. After hours, you can call doctors registry at [phone] OR call [facility] at [phone] ask to have the doctor elevator constructor paged. If you consider this an emergency, dial 5 or go to your nearest emergency department. NEED HELP? Are you dealing with a violent or abusive relationship? Are you a victim of rape or sexual assult? Call [facility] ([place]) 24 hour Crisis Hotline: 718.159.6996 or 629-665-1037. MANUAL Your Guide to a Healthy manual is now on-line. Visit [email or web address] to download your free copy documented in this encounterMercy Hospital05-18-2022 Miscellaneous Notes* Quick Notes - Caterina Garsia APRN.RAYMOND - 12/28/2021 11:16 AM EDT MARI-S: Raymond Brownlee is a 21 year old female who presents at 19w5d with LOC:05/19/2022, by Ultrasound for a routine visit. Good FM. Denies headache, visual changes, chest pain, shortness of breath, vaginal bleeding, leakage of fluid, or dysuria. Feeling well, no complaints. Emesis once a day upon rising, keeping food down and denies any need for medications, coping well. Itching at [place] injection site. O: See flow sheet Gen: No apparent distress Abd: Gravid, nontender Skin: No erythema, edema on arms bilaterally at injection site. S=D, -9lb ASSESSMENT/PLAN: weeks gestation of 2. Screen for STD (sexually transmitted disease) P: 1) PTL precautions reviewed and when to call 2) RTO in 4 weeks 3) Continue [place] injections for history of PPROM, claritin for itching. To notify office if worsening. 4) Anatomy US completed, awaiting official results 5) GC/CT completed today, not completed at NOB visit. Caterina Garisa APRN.CNM documented in this encounterMercy Hospital05-18-2022 Instructions* Patient Instructions* Tara Feliciano MA - 12/28/2021 10:35 AM EDT SEQUENTIAL SCREENINGS [facility] offers sequential screenings for women who are interested in screenings for chromosomal abnormalities and certain defects during a . The sequential screen combinesultrasound and blood tests to determine the risk of chromosomal abnormalities, including Down's Syndrome (Trisomy 21) and Trisomy 18, as well as open neural tube defects including spina bifida. Ultrasound examination is performed between 11 weeks and 13 weeks gestational age. Blood tests are drawn after the ultrasound and again later in the between 15 and 21 weeks gestational age. Please let your physician know if you are interested in this testing. It will require an appointment withour premises technician. This is not an ultrasound performed by a physician in our office during a routine visit. SIGNS AND SYMPTOMS OF LABOR 1. Contractions every 10 minutes or more often 2. Clear, pink, or brownish fluid (water) leaking from vagina 3. Feeling that baby is pushing down, pressure 4. Low, dull backache 5. Cramps that feel like a period 6. Cramps with or without diarrhea If you notice any of the above symptoms, contact our office at [phone] and ask to speak with anurse. After hours, you can call doctors registry at [phone] OR call [facility] at [phone] ask to have the doctor elevator constructor paged. If you consider this an emergency, dial 9--1 or go to your nearest emergency department. NEED HELP? Are you dealing with a violent or abusive relationship? Are you a victim of rape or sexual assult? Call [facility] ([place]) 24 hour Crisis Hotline: 927.874.1329 or 872-139-8177. MANUAL Your Guide to a Healthy manual is now on-line. Visit [email or web address] to download your free copy documented in this encounterMercy Hospital04-22-2022 History of Present illness Narrative* Loren De Dios APRN.CNM - 12/02/2021 3:05 PM EDT Order signed. Loren De Dios APRN.CNM * Shima Zhou RN - 12/02/2021 2:24 PM EDT silvestre * Kyra Bravo RN - 12/02/2021 2:16 PM EDT Patient 16w0d presents in office for her first [place] injection. Patient wanted first injection to be demonstrated to her in the office and then will give herself the rest of her weekly injections athome. Patient brought medication with her to the office. Patient tolerated injection well. See MAR for medication detail. Kyra Bravo RN documented in this encounterMercy Hospital04-20-2022 Miscellaneous Notes* Quick Notes - Angely Geronimo MD - 11/30/2021 9:40 AM EDT SW- Pt doing well today. Having daily MUÑOZ's. She describes them as a diffuse throbbing pain with light sensitivity. No pain, vb, lof. PE: Gen- NAD, well appearing, comfortable Abd- Soft, NT Ext- No edema See flowsheet A/p 15 wk gestation - Start [place] at 16 wk gestation. Pt comfortable doing injections at home after having first injection done here. To schedule nurse visit - Second trimester blood work for sequential screen - Magnesium for migraine MUÑOZ's - To schedule anatomy US - RTO 4 wks Angely Geronimo DO documented in this encounterMercy Hospital04-20-2022 Instructions* Patient Instructions* Bette Weir MA - 11/30/2021 9:14 AM EDT SEQUENTIAL SCREENINGS [facility] offers sequential screenings for women who are interested in screenings for chromosomal abnormalities and certain defects during a . The sequential screen combinesultrasound and blood tests to determine the risk of chromosomal abnormalities, including Down's Syndrome (Trisomy 21) and Trisomy 18, as well as open neural tube defects including spina bifida. Ultrasound examination is performed between 11 weeks and 13 weeks gestational age. Blood tests are drawn after the ultrasound and again later in the between 15 and 21 weeks gestational age. Please let your physician know if you are interested in this testing. It will require an appointment withour premises technician. This is not an ultrasound performed by a physician in our office during a routine visit. SIGNS AND SYMPTOMS OF LABOR 1. Contractions every 10 minutes or more often 2. Clear, pink, or brownish fluid (water) leaking from vagina 3. Feeling that baby is pushing down, pressure 4. Low, dull backache 5. Cramps that feel like a period 6. Cramps with or without diarrhea If you notice any of the above symptoms, contact our office at [phone] and ask to speak with anurse. After hours, you can call doctors registry at [phone] OR call [facility] at [phone] ask to have the doctor elevator constructor paged. If you consider this an emergency, dial 9-1-5 or go to your nearest emergency department. NEED HELP? Are you dealing with a violent or abusive relationship? Are you a victim of rape or sexual assult? Call [facility] ([place]) 24 hour Crisis Hotline: 676.696.4006 or 508-814-8244. MANUAL Your Guide to a Healthy manual is now on-line. Visit [email or web address] to download your free copy documented in this encounterMercy Hospital03-31-2022 Miscellaneous Notes* Telephone Encounter - Morenita Pereira RN - 11/10/2021 10:21 AM EDT .Patient called and left message for patient on identified voicemail. Raymond Brownlee was informed of negative Sequential screen first trimester. Raymond Brownlee was informed of her risk assessment for Trisomy 21 and 18. Based on these results Dr. Jones s recommendation is for patient to follow-up with Sequential second trimester screening (11/30-12/14) and level II anatomy scan after 18wks.Left message for patient to call with questions. Morenita Pereira RN documented in this encounterMercy Hospital08-01-2021 NoteDepartment of Obstetrics and Gynecology Delivery Discharge Summary Admission on 01/19/2021 12:30 AM ? Reason for Hospitalization: PPROM at 25w0d. She was ultimately induced after developing chorioamnionitis 03/11/2021. She received clinda/gent due to a PCN allergy. ? Intrapartum Course: Her induction course consisted of pitocin titration. Pt delivered vaginally and baby went to [facility]> Surgical Operations & Procedures: Date of delivery: 03/12/2021 Procedure: induced vaginal Anesthesia: Epidural anesthesia Laceration(s): none Delivery Complications: none EBL: 50 cc Pertinent Findings & Procedures: Information for the patient's : Suha Brownlee [[id number]] female Weight: 4 lb 9.4 oz (2.08 kg) Apgars: Information for the patient's : Suha Brownlee [[id number]] One Minute : 8 Five Minute : 8 Course: Uncomplicated Infant: Live female in [facility] Blood Type/Rh: A POS Antibody Screen: Antibody Screen Date Value Ref Range Status 2021 NEG NA Final Rubella: No results found for: RUBELLAIGG Contraception: Nexplanon at pp visit. : yes VTE Prophylaxis: Not Indicated Home Meds: Kem Raymond Home Medication Instructions MARIBETH:[id number] Printed on:03/13/21 2967 Medication Information ibuprofen (ADVIL;MOTRIN) 600 MG tablet Take 1 tablet by mouth every 6 hours as needed for Pain ondansetron (ZOFRAN) 4 MG tablet Take 4 mg by mouth every 8 hours as needed for Nausea or Vomiting Vit-Fe Fumarate-FA ( VITAMINS) 28-0.8 MG TABS Take 1 tablet by mouth daily Meds at Discharge: Medication List START taking these medications ibuprofen 600 MG tablet Commonly known as: ADVIL;MOTRIN Take 1 tablet by mouth every 6 hours as needed for Pain Vitamins 28-0.8 MG Tabs Take 1 tablet by mouth daily Replaces: 1+1 PO CONTINUE taking these medications ondansetron 4 MG tablet Commonly known as: ZOFRAN STOP taking these medications 1+1 PO Replaced by: Vitamins 28-0.8 MG Tabs Where to Get Your Medications These medications were sent to [address] [phone] - [phone] [place] [id number] ? ibuprofen 600 MG tablet ? Vitamins 28-0.8 MG Tabs Activity: Activity as tolerated Diet: Regular diet Follow-up Appointments: _x_ visit __ incision check __ blood pressure check __ blood sugar check/ 2-hr GTT _x_ depression screen __ other: Condition on discharge: Stable Discharge to: Home Discharge date: 03/13/21 Discharge Dx: 1. S/p at 32w3d 2. Chorioamnionitis 3. PPROM 4. H/o depression 5. Anxiety premature rupture of membranes (PPROM) with onset of labor after 24 hours of rupture in third trimester, antepartum [O42.113] Patient Active Problem List Diagnosis ? premature rupture of membranes (PPROM) with onset of labor after 24 hours of rupture in third trimester, antepartum ? Chorioamnionitis ? Encounter for induction of labor ? (spontaneous vaginal delivery) Comments: Home care, Follow-up care and control were reviewed. Signs and symptoms of mastitis and Depression were reviewed. The patient is to notify her physician if any of these occur.[facility] 03-13-2021 Hospital Discharge instructions* Instructions* Concepcion, Teresa Mary BethDO - 03/13/2021 Images from the original note were not included. After Your Delivery (the Period): Your Care Instructions Congratulations on the of your baby. Like , the period can be a time of excitement, lucy, and exhaustion. You may look at your wondrous little baby and feel happy. You may also be overwhelmed by your new sleep hours and new responsibilities. In these first weeks after delivery, try to take good care of yourself. It may take 4 to 6 weeks to feel like yourself again, and possibly longer if you had a . You will likely feel very tired for several weeks. Your dayswill be full of ups and downs, but lots of lucy as well. FOLLOW-UP: Your follow-up care is a springer part of your treatment and safety. Follow-up with your OB doctor in 4-6 weeks or as specified by your physician. Be sure to make and go to all appointments, and call yourdoctor if you are having problems. It's also a good idea to know your test results and keep a list of the medicines you take. BLEEDING Vaginal bleeding will decrease in amount over the next few weeks but be present for as long as 8 weeks after delivery. Bleeding may metal pickling equipment operator and then decrease again around 7-10 days . Use pads instead of tampons for the bloody flow that may last as long as 2 weeks. You will notice that as your activity increases, your flow may increase. Call your doctor if you are saturating one maxi pad in an hour & passing large clots for 3 hours or more. ACTIVITY NO SEXUAL activity for 6 weeks or until advised by your doctor. Nothing in the vagina for 6 weeks: e.g.) intercourse, tampons, or douching. Showering is okay; NO tub baths, swimming, or hot tubs for 6 weeks. Gradually increase your activity. Resume exercise regimen only after advice by your doctor. Avoid lifting anything heavier than your baby or a gallon of milk for six weeks. Avoid driving 1 week for vaginal delivery and 2 weeks for section, or longer if you are onprescription pain medicine unless otherwise instructed by your doctor. Rise slowly from a lying to sitting and then a standing position. Climb stairs carefully. Use caution when carrying your baby up and down the stairs. You may feel tired or have a lack of energy. Nap when baby naps to catch up on sleep. You may continue your vitamin to replenish nutrients post delivery. EMOTIONS You may feel mcintosh, sad, teary, & overwhelmed for the first 2 weeks ; however, feelings of post depression may occur any time within the first year after delivery. Contact your OB provider if you feel you may be showing signs of depression, or have thoughts of harming yourself or your . If infant will not stop crying, contact another adult for help or place infant in their crib on their back and take a break. NEVER shake your infant. WOUND CARE For Vaginal Delivery: Shower daily, and cleanse your perineum (bottom) with mild soap from front to Back. Use the plasticsquirt bottle until bleeding stops each time you use the restroom instead of wiping with toilet paper. Ease soreness of hemorrhoids and the area between your vagina and rectum with ice compresses or witch rah pads. If used, stitches will dissolve in 4-6 weeks on their own. You may use a sitz bath or soak in a clean tub with drain open and water running for comfort. Kegel exercises will help restore bladder control. To do these tighten your muscles as if you were stopping your urine flow. Hold for a few seconds and then relax. Do these throughout the day. For Section Delivery: Keep your incision clean and dry. If you had steri-strips you may remove these once they start peeling off. If you have mario they need to be removed 3-10 days after delivery. If you have steri-strips, remove after 10-14 days. Do not wear clothing that irritates the incision line. If your incision in in a crease that is not dry, use a hair-dryer to dry the area 3 times a day. If you develop fever, shaking chills, redness, swelling, drainage or discharge from your wound, or if your wound looks like it's coming apart call your doctor immediately. For Tubal Ligation: Remove dressing 3 days after being discharged from the hospital. If you develop fever, shaking chills, redness, swelling, drainage or discharge from your wound, or if your wound looks like it's coming apart call your doctor immediately. BREAST CARE If you develop a warm, red, tender area on your breast or develop a fever contact your doctor. For moms: If you become engorged, feeding may be more difficult or painful for 1-2 days. You may find it helpful to hand express some milk so that the infant can latch on more easily or ease soreness with wet, warm washcloths. While , continue to take your vitamins as directed by your doctor. For non- moms: You may apply ice packs to your breasts over you bra for twenty minutes at a time for comfort. Cabbage leaves may be applied to breasts, replace when wilted. Avoid stimulation to your breasts, when showering allow the water to strike your back not your breasts. Do not express milk or your body will make more. Wear a good fitting bra until your milk dries, such as a sports bra. DIET & CONSTIPATION Eat a well balanced diet focusing on foods high in fiber and protein such as: whole grain cereals and breads, fruits and vegetables and legumes (eg, beans, lentils) Drink 8-10 glasses of fluids daily, especially water. To avoid constipation you may take a mild ponp-jns-zhckwkm stool softener (such as colace) as recommended by your doctor. SWELLING Try to keep your legs elevated when you are sitting or lying down. Stay hydrated and take walks. BABY Babies sleep safest on their back in a crib without bumpers, blankets or stuffed animals. DO NOT sleep with your baby in your bed or the couch. DO NOT expose baby to smoke, this can increase risks of asthma and sudden syndrome. Ifyou or someone around baby smokes have them change their shirt and wash any facial hair before holding baby. Do not smoke inside the house and change the ventilation filters in the house before bringing baby home. WHEN TO CALL THE DOCTOR Signs of infection, including fever (101oF) and chills. Increased bleeding: soaking more than one sanitary pad an hour. Wounds that become red, swollen or drain pus. Vaginal discharge that smells foul. Headaches that lasts several hours and will not go away even with headache medications. Visual changes that last several hours and will not go away. Significant pain immediately below your rib cage. New pain, swelling, or tenderness in your legs Pain that you can't control with the medications you've been given. Pain, burning, urgency or frequency of urination, or persistent bleeding in the urine. Cough, shortness of breath, or chest pain. Depression, suicidal thoughts, or feelings of harming your baby. Breasts that are hot, red and accompanied by fever. Any cracking or bleeding from the nipple or areola (the dark-colored area of the breast). In case of an emergency, call 911 immediately. If you are Covid-19 positive or a Person Under Investigation (PUI) Uylkaf-em-yojpn transmission of COVID-19 during is unlikely, but after a baby is susceptible to icygwl-qj-begsbd spread. After your baby is born, your health care provider may recommend you not hold your baby and/or thatyou stay in a separate room from your baby until you get better. If you and your baby are not , wear a facemask at all times and wash your hands thoroughlybefore touching, holding or feeding your baby. Baby Care & Feeding has many benefits for you and your baby and is the best food for your baby. From whatexperts know so far, COVID-19 has not been found in breastmilk. Having a healthy adult who can assist with baby care until you get better is important, you may want to have a healthy adult feed your baby your expressed breast milk or formula if you chose to not breastfeed. You may use a breast pump to express your breast milk. Wear a face mask, wash your breasts, then wash your hands thoroughly before touching the breast pump and bottle parts. Clean all pump parts after each use. If you choose to breastfeed from your breast, wear a face mask, wash your breasts, wash your hands thoroughly before feeding your baby. These could be signs that your COVID-19 symptoms are worsening and you may need emergency care: You are severely dizzy or lightheaded. You are confused or can't think clearly. Your face and lips have a blue color. You are unable to respond to others or are very hard to wake up. Prevention steps for People with confirmed or suspected COVID-19 (including persons under investigation) who do not need to be hospitalized AND People with confirmed COVID-19 who were hospitalized and determined to be medically stable to go home Your healthcare provider and public health staff will evaluate whe ther you can be cared for at home. If it is determined that you do not need to be hospitalized and can be isolated at home, you willbe monitored by staff from your local or state health department. You should follow the prevention steps below until a healthcare provider or local or state health department says you can return to your normal activities. Stay home except to get medical care People who are mildly ill with COVID-19 are able to isolate at home during their illness. You should restrict activities outside your home, except for getting medical care. Do not go to work, school,or public areas. Avoid using public transportation, ride-sharing, or taxis. Separate yourself from other people and animals in your home People: As much as possible, you should stay in a specific room and away from other people in your home. Also, you should use a separate bathroom, if available. Animals: You should restrict contact with pets and other animals while you are sick with COVID-19, just like you would around other people. Although there have not been reports of pets or other animals becoming sick with COVID-19, it is still recommended that people sick with COVID-19 limit contactwith animals until more information is known about the virus. When possible, have another member ofyour household care for your animals while you are sick. If you are sick with COVID-19, avoid contact with your pet, including petting, snuggling, being kissed or licked, and sharing food. If you must care for your pet or be around animals while you are sick, wash your hands before and after you interact with pets and wear a facemask. Call ahead before visiting your doctor If you have a medical appointment, call the healthcare provider and tell them that you have or may have COVID-19. This will help the healthcare provider's office take steps to keep other people from getting infected or exposed. Wear a facemask You should wear a facemask when you are around other people (e.g., sharing a room or vehicle) or pets and before you enter a healthcare provider's office. If you are not able to wear a facemask (for example, because it causes trouble breathing), then people who live with you should not stay in the same room with you, or they should wear a facemask if they enter your room. Cover your coughs and sneezes Cover your mouth and nose with a tissue when you cough or sneeze. Throw used tissues in a lined trash can. Immediately wash your hands with soap and water for at least 20 seconds or, if soap and water are not available, clean your hands with an alcohol-based hand flagger that contains at least 60% alcohol. Clean your hands often Wash your hands often with soap and water for at least 20 seconds, especially after blowing your nose, coughing, or sneezing; going to the bathroom; and before eating or preparing food. If soap and water are not readily available, use an alcohol-based hand flagger with at least 60% alcohol, covering all surfaces of your hands and rubbing them together until they feel dry. Soap and water are the best option if hands are visibly dirty. Avoid touching your eyes, nose, and mouth with unwashed hands. Avoid sharing personal household items You should not share dishes, drinking glasses, cups, eating utensils, towels, or bedding with otherpeople or pets in your home. After using these items, they should be washed thoroughly with soap and water. Clean all high-touch surfaces everyday High touch surfaces include counters, tabletops, doorknobs, bathroom fixtures, toilets, phones, keyboards, tablets, and bedside tables. Also, clean any surfaces that may have blood, stool, or body fluids on them. Use a household cleaning spray or wipe, according to the label instructions. Labels contain instructions for safe and effective use of the cleaning product including precautions you should take when applying the product, such as wearing gloves and making sure you have good ventilation during use of the product. Monitor your symptoms Seek prompt medical attention if your illness is worsening (e.g., difficulty breathing). Before seeking care, call your healthcare provider and tell them that you have, or are being evaluated for, COVID-19. Put on a facemask before you enter the facility. These steps will help the healthcare provider's office to keep other people in the office or waiting room from getting infected or exposed. Askyour healthcare provider to call the local or [facility] health department. Persons who are placed underactive monitoring or facilitated self- monitoring should follow instructions provided by their localhealth department or occupational health professionals, as appropriate. When working with your local health department check their available hours. If you have a medical emergency and need to call 911, notify the dispatch personnel that you have, or are being evaluated for COVID-19. If possible, put on a facemask before emergency medical services arrive. Discontinuing home isolation Patients with confirmed COVID-19 should remain under home isolation precautions until the risk of secondary transmission to others is thought to be low. The decision to discontinue home isolation precautions should be made on a olfv-ei-fnir basis, in consultation with healthcare providers and count includes the [facility] departments. Information on COVID-19 for ALL patients Call your provider before your next appointment if you develop any of the following symptoms: fever, cough, fatigue, anorexia, shortness of breath, sputum production, and muscle pains. Headache, confusion, rhinorrhea, sore throat, hemoptysis, vomiting, and diarrhea have been reported but are less common. Some persons with COVID-19 have experienced gastrointestinal symptoms such as diarrhea and nausea prior to developing fever and lower respiratory tract signs and symptoms. Ways to [place] with Anxiety & Stress It is normal to feel anxious or worried about COVID-19. You might feel sad about canceling celebrations and staying away from family and friends. Keep in mind that most people do not get severely ill from COVID-19. It is important to have a planin case you get sick to prevent spreading the disease to others including an Advanced Care Plan (communicating and documenting your desired health care plan with family and healthcare team). You can take care of yourself by: o Taking a break from watching the news o Take deep breaths, stretch or meditate o Getting exercise, eating healthy foods, and drinking plenty of water o Finding activities you can enjoy inside your home o Staying in touch with your family and friends. Tell your partner, family, and friends how you arefeeling. Advance Care Planning People with COVID-19 may have no symptoms, mild symptoms, such as fever, cough, and shortness of breath or they may have more severe illness, developing severe and fatal pneumonia. As a result, Advance Care Planning with attention to naming a health care decision maker (someone you trust to make healthcare decisions for you if you could not speak for yourself) and sharing other health care preferences is important BEFORE a possible health crisis. Please contact your Primary Care Provider to discuss Advance Care Planning. LEARNING ABOUT THE CORONAVIRUS (COVID-19): Coronavirus (COVID-19): Overview What is coronavirus (COVID-19)? The coronavirus disease (COVID-19) is caused by a virus. It is an illness that was first found in [facility], in July 2019. It has since spread worldwide. The virus can cause fever, cough, and trouble breathing. In severe cases, it can cause pneumonia and make it hard to breathe without help. It can cause . Coronaviruses are a large group of viruses. They cause the common cold. They also cause more serious illnesses like [place] respiratory syndrome (MERS) and severe acute respiratory syndrome (SARS). COVID-19 is caused by a novel coronavirus. That means it's a new type that has not been seen in people before. This virus spreads jofocl-ub-uizocs through droplets from coughing and sneezing. It can also spreadwhen you are close to someone who is infected. And it can spread when you touch something that has the virus on it, such as a doorknob or a tabletop. What can you do to protect yourself from coronavirus (COVID-19)? The best way to protect yourself from getting sick is to: Avoid areas where there is an outbreak. Avoid contact with people who may be infected. Wash your hands often with soap or alcohol-based hand sanitizers. Avoid crowds and try to stay at least 6 feet away from other people. Wash your hands often, especially after you cough or sneeze. Use soap and water, and scrub for at least 20 seconds. If soap and water aren't available, use an alcohol-based hand flagger. Call 911 anytime you think you may need emergency care. For example, call if: You have severe trouble breathing. (You can't talk at all.) You have constant chest pain or pressure. You are severely dizzy or lightheaded. You are confused or can't think clearly. Your face and lips have a blue color. You pass out (lose consciousness) or are very hard to wake up. Call your doctor now if you develop symptoms such as: Shortness of breath. Fever. Cough. If you need to get care, call ahead to the doctor's office for instructions before you go. Make sure you wear a face mask, if you have one, to prevent exposing other people to the virus. Where can you get the latest information? The following health organizations are tracking and studying this virus. Their websites contain themost up-to-date information. You'll also learn what to do if you think you may have been exposed tothe virus. U.S. Centers for Disease Control and Prevention (CDC): The CDC provides updated news about the disease and travel advice. The website also tells you how to prevent the spread of infection. www.cdc.gov World Health Organization (WHO): WHO offers information about the virus outbreaks. WHO also has travel advice. www.who.int Current as of: November 12, 2019 Content Version: 12. [employer]. Care instructions adapted under license by your healthcare professional. If you have questions about a medical condition or this instruction, always ask your healthcare professional. [employer] disclaims any warranty or liability for your use of this information. General Recommendations for Routine Cleaning and Disinfection of Households Community members can practice routine cleaning of frequently touched surfaces (for example: tables, doorknobs, light switches, handles, desks, toilets, faucets, sinks) with household sourcing associate and EPA-registered disinfectants that are appropriate for the surface, following label instructions. Labels contain instructions for safe and effective use of the cleaning product including precautions you should take when applying the product, such as wearing gloves and making sure you have good ventilation during use of the product. These guidelines are focused on household settings and are meant for the general public. Cleaning refers to the removal of germs, dirt, and impurities from surfaces. Cleaning does not killgerms, but by removing them, it lowers their numbers and the risk of spreading infection. Disinfecting refers to using chemicals to kill germs on surfaces. This process does not necessarilyclean dirty surfaces or remove germs, but by killing germs on a surface after cleaning, it can further lower the risk of spreading infection. General Recommendations for Cleaning and Disinfection of Households with People Isolated in Home Care - Confirmed or suspected COVID 19 Household members should educate themselves about COVID-19 symptoms and preventing the spread of COVID-19 in homes. Clean and disinfect high-touch surfaces daily in household common areas (e.g. tables, hard-backed chairs, doorknobs, light switches, remotes, handles, desks, toilets, sinks) o In the bedroom/bathroom dedicated for an ill person: consider reducing cleaning frequency to as-needed (e.g., soiled items and surfaces) to avoid unnecessary contact with the ill person. - As much as possible, an ill person should stay in a specific room and away from other people in their home. - The caregiver can provide personal cleaning supplies for an ill person's room and bathroom, unless the room is occupied by child or another person for whom such supplies would not be appropriate. These supplies include tissues, paper towels, sourcing associate and EPA-registered disinfectants (see list link at CDC website). - If a separate bathroom is not available, the bathroom should be cleaned and disinfected after each use by an ill person. If this is not possible, the caregiver should wait as long as practical after use by an ill person to clean and disinfect the high-touch surfaces. How to clean and disinfect: Hard Surfaces Wear disposable gloves when cleaning and disinfecting surfaces. Gloves should be discarded after each cleaning. If reusable gloves are used, those gloves should be dedicated for cleaning and disinfection of surfaces for COVID-19 and should not be used for other purposes. Consult the customer engagement analyst's instructions for cleaning and disinfection products used. Clean hands immediately after gloves are removed. If surfaces are dirty, they should be cleaned using a detergent or soap and water prior to disinfection. For disinfection, diluted household bleach solutions, alcohol solutions with at least 70% alcohol, and most common EPA-registered household disinfectants should be effective. o Diluted household bleach solutions can be used if appropriate for the surface. Follow customer engagement analyst's instructions for application and proper ventilation. Check to ensure the product is not past itsexpiration date. Never mix household bleach with ammonia or any other cleanser. Unexpired householdbleach will be effective against coronaviruses when properly diluted. - Prepare a bleach solution by mixing: - 5 tablespoons (1/3rd cup) bleach per gallon of water or - 4 teaspoons bleach per quart of water o Products with EPA-approved emerging viral pathogens [facility] ic[facility]xternal icon are expected to be effective against COVID-19 based on data for harder to kill viruses. Follow the customer engagement analyst's instructions for all cleaning and disinfection products (e.g., concentration, application method and contact time, etc.). Soft (porous) surfaces such as carpeted floor, rugs, and drapes Remove visible contamination if present and clean with appropriate sourcing associate indicated for use on these surfaces. After cleaning: Launder items as appropriate in accordance with the customer engagement analyst's instructions. If possible, launder items using the warmest appropriate water setting for the items and dry items completely, or Clothing, towels, linens and other items that go in the laundry Wear disposable gloves when handling dirty laundry from an ill person and then discard after each use. If using reusable gloves, those gloves should be dedicated for cleaning and disinfection of surfaces for COVID-19 and should not be used for other household purposes. Clean hands immediately aftergloves are removed. o If no gloves are used when handling dirty laundry, be sure to wash hands afterwards. o If possible, do not shake dirty laundry. This will minimize the possibility of dispersing virus through the air. o Launder items as appropriate in accordance with the customer engagement analyst's instructions. If possible, launder items using the warmest appropriate water setting for the items and dry items completely. Dirtylaundry from an ill person can be washed with other people's items. o Clean and disinfect clothes hampers according to guidance above for surfaces. If possible, consider placing a baggage security checker that is either disposable (can be thrown away) or can be laundered. CDC has a list of EPA approved cleaning products on their website - https://www.cdc.gov/coronavirus/ 2019-ncov/community/home/cleaning-disinfection.html https://www.[employer].com/Mcjlj-Hnnuaajhqtf-Yycmqjyi-Products-List.pdf documented in this encounterSUMMA Work Phone: 1(349) 379-195508-01-2021 Hospital course Narrative* Teresa Concepcion DO - 03/13/2021 12:07 PM EDT Images from the original note were not included. Department of Obstetrics and Gynecology Delivery Discharge Summary Admission on 01/19/2021 12:30 AM Reason for Hospitalization: PPROM at 25w0d. She was ultimately induced after developing chorioamnionitis 03/11/2021. She received clinda/gent due to a PCN allergy. Intrapartum Course: Her induction course consisted of pitocin titration. Pt delivered vaginally and baby went to [facility]> Surgical Operations & Procedures: Date of delivery: 03/12/2021 Procedure: induced vaginal Anesthesia: Epidural anesthesia Laceration(s): none Delivery Complications: none EBL: 50 cc Pertinent Findings & Procedures: Information for the patient's : Suha Brownlee [[id number]] female Weight: 4 lb 9.4 oz (2.08 kg) Apgars: Information for the patient's : Suha Brownlee [[id number]] One Minute : 8 Five Minute : 8 Course: Uncomplicated Infant: Live female infant in [facility] Blood Type/Rh: A POS Antibody Screen: Antibody Screen Date Value Ref Range Status 2021 NEG NA Final Rubella: No results found for: RUBELLAIGG Contraception: Nexplanon at pp visit. : yes VTE Prophylaxis: Not Indicated Home Meds: Raymond Brownlee Home Medication Instructions MARIBETH:[id number] Printed on:03/13/21 1208 Medication Information ibuprofen (ADVIL;MOTRIN) 600 MG tablet Take 1 tablet by mouth every 6 hours as needed for Pain ondansetron (ZOFRAN) 4 MG tablet Take 4 mg by mouth every 8 hours as needed for Nausea or Vomiting Vit-Fe Fumarate-FA ( VITAMINS) 28-0.8 MG TABS Take 1 tablet by mouth daily Meds at Discharge: Medication List START taking these medications ibuprofen 600 MG tablet Commonly known as: ADVIL;MOTRIN Take 1 tablet by mouth every 6 hours as needed for Pain Vitamins 28-0.8 MG Tabs Take 1 tablet by mouth daily Replaces: 1+1 PO CONTINUE taking these medications ondansetron 4 MG tablet Commonly known as: ZOFRAN STOP taking these medications 1+1 PO Replaced by: Vitamins 28-0.8 MG Tabs Where to Get Your Medications These medications were sent to [address] [phone] - F [phone] [address] [facility] [id number] ibuprofen 600 MG tablet Vitamins 28-0.8 MG Tabs Activity: Activity as tolerated Diet: Regular diet Follow-up Appointments: _x_ visit __ incision check __ blood pressure check __ blood sugar check/ 2-hr GTT _x_ depression screen __ other: Condition on discharge: Stable Discharge to: Home Discharge date: 03/13/21 Discharge Dx: 1. S/p at 32w3d 2. Chorioamnionitis 3. PPROM 4. H/o depression 5. Anxiety premature rupture of membranes (PPROM) with onset of labor after 24 hours of rupture in third trimester, antepartum [O42.113] Patient Active Problem List Diagnosis premature rupture of membranes (PPROM) with onset of labor after 24 hours of rupture in third trimester, antepartum Chorioamnionitis Encounter for induction of labor (spontaneous vaginal delivery) Comments: Home care, Follow-up care and control were reviewed. Signs and symptoms of mastitis and Depression were reviewed. The patient is to notify her physician if any of these occur. documented in this [facility] Work Phone: [phone]) 464-580408-01-2021 History of Present illness Narrative* Teresa Concepcion DO - 03/13/2021 5:33 AM EDT Images from the original note were not included. POST DAY # 1 Raymond Brownlee, 21 y.o. This patient was seen & examined today. Her was complicated by: Patient Active Problem List Diagnosis premature rupture of membranes (PPROM) with onset of labor after 24 hours of rupture in third trimester, antepartum Chorioamnionitis Encounter for induction of labor (spontaneous vaginal delivery) Today she is resting comfortably with no complaints. Her lochia is light. She denies chest pain, shortness of breath, headache, lightheadedness and blurred vision. She is ambulating well. She is tolerating solids. Vital Signs: Vitals: 03/12/21 0441 03/12/21 0803 03/12/21 0900 03/12/212005 BP: 103/71 (!) 93/56 108/70 Pulse: 71 80 80 82 Resp: 16 16 20 Temp: 97.9 F (36.6 C) 98.9 F (37.2 C) 97.6 F (36.4 C) TempSrc: Temporal Temporal Temporal SpO2: 98% 98% 100% Weight: Height: Physical Exam: General: no apparent distress, alert and cooperative Affect: appropriate Lungs: No increased work of breathing, good air exchange Abdomen: abdomen soft, non-distended, non-tender Fundus: non-tender, normal size, firm, below umbilicus Extremities: no calf tenderness, non edematous Lab: Lab Results Component Value Date HGB 12.0 02/18/2021 Lab Results Component Value Date HCT 36.5 02/18/2021 A POS Antibody Screen: Antibody Screen Date Value Ref Range Status 2021 NEG NA Final No results found for: RUBELLAIGG LABOR DELIVERY ??? SCD's ONLY (labor through ambulation) SCD's PLUS Prophylactic Anticoagulation until discharge SCD's PLUS Prophylactic Anticoagulation for 6 weeks SCD's PLUS Therapeutic Anticoagulation for 6 weeks Vaginal Delivery [] BMI ? 40 kg/m2 Delivery All patients Vaginal Delivery [] BMI ? 40 kg/m2 AND [x] Antepartum hospitalization ? 72 hours within the past month Delivery 1 Major Risk Factor: [] BMI ? 35 kg/m2 [] Low Risk Thrombophilia [] PPH+RBCs, IR, or operation [] Infection+Antibiotics [] Antepartum hospitalization ? 72 hours within the past month [] PMH: Sickle Cell, SLE, Cardiac Dz, Active IBD, Active Cancer, Nephrotic Syndrome OR 2 Minor Risk Factors: [] Multiple gestation [] Age > 40 [] PPH ? 1,000cc [] (+)FMH of VTE [] Smoker [] Preeclampsia [] BMI ? 40 kg/m2 AND [] Low Risk Thrombophilia OR ANY OF THE FOLLOWING: [] High Risk Thrombophilia without prior VTE [] Low Risk Thrombophilia with (+)FMH of VTE [] Any single prior VTE ANY OF THE FOLLOWING: [] Already on LMWH/UFH [] Multiple prior VTE [] High Risk Thrombophilia with prior VTE Low Risk Thrombophilia: FVL (heterozygous), Prothrombin (heterozygous), Protein C, Protein S High Risk Thrombophilia: FVL (homozygous), Prothrombin (homozygous), FVL+Prothrombin (heterozygous), Antithrombin III, APLS Assessment/Plan: Raymond rBownlee is PPD # 1 s/p 1. Care - Doing well, VSS - Female infant - Contraception: Per Private Attending - Encourage ambulation - VTE Prophylaxis: Not Indicated 2. Chorioamnionitis - Was admitted to for several weeks 2/2 PPROM - Induced 2/2 maternal tachycardia, fundal tenderness, and concern for chorio - Treated with clinda/gent x1 - Afebrile - No fundal tenderness this AM 3. Disposition: Continue current care. Based on my clinical assessment, this patient is safe for self discharge (does not need transport by wheelchair) if she so chooses. Provider's Name: MD Christi Wright DO 03/13/2021, 5:33 AM ATTENDING NOTE: I personally saw and evaluated the patient. I reviewed the care provided by the resident/ PA/ TANK WASHER including the patient's medical history, physical exam findings, diagnosis and treatment plan. I also agree with the documentation from the resident /PA /TANK WASHER unless otherwise indicated: Doing well. Would like to be d/c'd today. Interval Nexplanon. H/o pp depression -- will f/u outpatient in 2 weeks. --- Total time spent discharging the patient was less than 30 minutes, of which greater than 50% ofthe time was spent counseling and coordinating care. * Ana Paula Pritchett DTR - 03/12/2021 10:43 AM EDT Nutrition rescreen completed. Chart reviewed. Patient to be monitored and followed by the diet flight readiness technician. * Comfort Jorge RN - 03/12/2021 6:30 AM EDT Up to bathroom with standby assist. Able to void a large amount of blood tinged urine. Radha care explained and performed by patient. Pitocin infusion complete. IV to saline lock. Hand hygiene at sink. Ambulate to bed with standby assist. Gait steady and tolerated well. FOB sleeping on couch at bedside. Call light within reach. Patient would like to sleep now and pump when she gets up. * Aspen Sanford RN - 03/12/2021 4:35 AM EDT To [facility] to see new daughter then to pp per w/c. * Aspen Sanford RN - 03/12/2021 4:20 AM EDT Up to the bathroom. Unable to void. Radha-care done. New pad and underwear applied. New gown on * Aspen Sanford RN - 03/12/2021 3:13 AM EDT Epidural removed with blue tip intact. Ate a meal from [employer]. lochia normal in amt. and color. Fundus firm * Anna Gomes DO - 03/11/2021 5:51 AM EDT Images from the original note were not included. Maternal Medicine Service Resident Progress Note 03/11/2021 5:52 AM 01/19/2021 Hospital Day: 52 Raymond Brownlee, 21 y.o. 32w2d Patient has been seen and examined. Pt initially sleeping. Pt still endorsing intermittent pink tinged fluids and lower abdominal pain/pressure. She states that it doesn't necessarily feel like cramping and it doesn't hurt when you touch it. She denies fevers, chills, nausea and vomiting. Positive movement Negative vaginal bleeding Positive LOF Negative Contractions Vitals: 03/10/21 1554 03/10/21 1948 03/10/21 2353 03/11/21 0326 BP: 108/70 102/66 (!) 101/58 (!) 95/57 Pulse: 98 108 80 91 Resp: 18 17 18 16 Temp: 98.1 F (36.7 C) 98.1 F (36.7 C) 97.8 F (36.6 C) 98 F (36.7 C) TempSrc: Oral Temporal Temporal Temporal SpO2: 98% 98% 96% 96% Weight: Height: FHT: 130, moderate variability Accels: present Decels: rare variable decel Contractions: none Physical Exam: Gen: NAD HEENT: Normocephalic, Atraumatic, Resp:no increased work of breathing Card: RRR Abd: soft, gravid, NTND, no rebound, no guarding. negative fundal tenderness Ext: No LE edema, no calf tenderness or swelling Medications: Current Facility-Administered Medications Medication Dose Route Frequency Provider Last Rate Last Admin sodium chloride flush 0.9 % injection 10 mL 10 mL Intravenous BID Anna Gomes, DO 10 mL at 03/10/21 210 calcium carbonate (TUMS) chewable tablet 500 mg 500 mg Oral TID PRN Hollie Keanehl, DO 500 mg at 01/25/21 0010 famotidine (PEPCID) tablet 20 mg 20 mg Oral BID Hollie W Faby, DO 20 mg at 03/10/21 2108 0.9 % sodium chloride infusion 25 mL Intravenous PRN Urmila Wright, DO ondansetron (ZOFRAN-ODT) disintegrating tablet 4 mg 4 mg Oral Q8H PRN Urmila Wright, DO 4 mg at 02/21/21 1349 Or ondansetron (ZOFRAN) injection 4 mg 4 mg Intravenous Q6H PRN Urmila Wright, DO vitamin 27-1 MG tablet 1 tablet 1 tablet Oral Daily Urmila Wright DO 1 tablet at 03/10/21 0953 docusate sodium (COLACE) capsule 100 mg 100 mg Oral BID PRN Urmila Wright DO 100 mg at 049 acyclovir (ZOVIRAX) capsule 400 mg 400 mg Oral TID Urmila Wright DO 400 mg at 03/10/212107 Assessment/Plan: Raymond Brownlee is a 21 y.o. female 32w2d PPROM - Continues to complain of lower abdominal pain, but no fundal tenderness. Worse with movement, is not worse with palpation - Afebrile, VSS - UA neg, urine culture pending - Continue expectant management HSV - Continue acyclovir IUP @ 32w2d - Dating by first tri US - Cephalic on 03/10 - MonitorinhrTID - Diet:General - BMZ x2 on 01/18-, rBMZ 02/21- Further plan pending d/w attending. Xiao Moran 03/11/2021, 5:52 AM Above note written by MS LENY, edited to reflect my assessment and plan. Patient continuing to have lower abdominal pain, worse with movement. If pain continues, consider CBC to evaluate for leukocytosis. Associated attestation - Rohit Stein MD - 03/11/2021 2:41 PM EDT I performed a history and physical examination on the patient and discussed the management with theresident physician. I reviewed and agree with the findings and plan as documented in their note today. 20 yr old at 32 2/7 GA with the following: PPROM with predatory animal exterminator admission and concerns today about continued increasing lower abdominal pain, worse with walking and moving in the bed. Now increased over the past 3 days. Increased vaginal discharge with concerns for more brown/mckenzie in color noted on pad, no obvious purulence. No temp, but maternal pulse also noted to be 114 this am. Concerns for chorioamnionitis discussed given worsening symptoms of abdominal pain and I palpated her with tenderness noted in the lower uterus and increased maternal pulse > 100 will plan for IOL of labor. The patient is agreeable after we discussed the R/B/A will plan to transfer to labor and delivery. Will alert NICU as well. Nancy to follow in labor HSV continued acyclovir throughout the hospitalization I spent 15 minutes in the visit today on the floor reviewing the chart, discussing the case with the residency staff and nursing Rohit Stein MD MD * Anna Gomes DO - 03/10/2021 6:04 AM EDT Images from the original note were not included. Maternal Medicine Service Resident Progress Note 03/10/2021 6:05 AM 01/19/2021 Hospital Day: 51 Raymond Brownlee, 21 y.o. 32w1d Patient has been seen and examined. Pt resting comfortably. She states that she still has intermittent cramping and pink tinged fluids. She denies fevers and chills. Positive movement Negative vaginal bleeding Positive LOF Negative Contractions Vitals: 03/09/21 1237 03/09/21 1644 03/09/21 2016 03/09/21 2318 BP: 93/60 100/71 108/66 (!) 94/57 Pulse: 130 89 112 94 Resp: 16 16 16 16 Temp: 98 F (36.7 C) 98.5 F (36.9 C) 98.3 F (36.8 C) 97.3 F (36.3 C) TempSrc: Temporal Temporal Temporal Temporal SpO2: 96% 98% 98% 97% Weight: Height: FHT: 130, moderate variability Accels: present Decels: rare variable decel Contractions: none Physical Exam: Gen: NAD HEENT: Normocephalic, Atraumatic, Resp: no respiratory distress Card: RRR Abd: soft, gravid, NTND, no rebound, no guarding. negative fundal tenderness Ext: No LE edema, no calf tenderness or swelling Medications: Current Facility-Administered Medications Medication Dose Route Frequency Provider Last Rate Last Admin sodium chloride flush 0.9 % injection 10 mL 10 mL Intravenous BID Anna Gomes DO 10 mL at 03/09/212124 calcium carbonate (TUMS) chewable tablet 500 mg 500 mg Oral TID PRN Hollie W Faby, DO 500 mg at 01/25/21 0010 famotidine (PEPCID) tablet 20 mg 20 mg Oral BID Hollie W Faby, DO 20 mg at 03/09/212124 0.9 % sodium chloride infusion 25 mL Intravenous PRN Urmila Ottoker, DO ondansetron (ZOFRAN-ODT) disintegrating tablet 4 mg 4 mg Oral Q8H PRN Urmila Simental Smerker, DO 4 mg at 02/21/21 1349 Or ondansetron (ZOFRAN) injection 4 mg 4 mg Intravenous Q6H PRN Urmila C Smerker, DO vitamin 27-1 MG tablet 1 tablet 1 tablet Oral Daily Urmila Simental Smdidierker, DO 1 tablet at 03/09/21 1005 docusate sodium (COLACE) capsule 100 mg 100 mg Oral BID PRN Urmila Matthewserker, DO 100 mg at acyclovir (ZOVIRAX) capsule 400 mg 400 mg Oral TID Urmila Matthewserker, DO 400 mg at 03/09/212124 Assessment/Plan: Raymond Brownlee is a 21 y.o. female 32w1d PPROM - VSS, negative for fundal tenderness on exam - Continue expectant management HSV - Continue acyclovir ppx IUP @ 32w1d - Dating by first tri US - Cephalic on 03/07 - MonitorinhrTID - Diet:General - BMZ x2 on 01/18-, rBMZ 02/21- Further plan pending d/w attending. Xiao Moran 03/10/2021, 6:05 AM Above note written by MS IV, edited to reflect my assessment and plan as needed. Patient doing wellthis AM, says that cramps have resolved overnight. Afebrile, VSS. No signs/symptoms of infection, will continue expectant management. Associated attestation - Francesca López DO - 03/10/2021 4:24 PM EDT Attending Supervising Physician's Attestation Statement I performed a history and physical examination on the patient and discussed the management with theresident physician. I reviewed and agree with the findings and plan as documented in the note. Pt admitted with PPROM. Overall stable during admission, but will have intermittent pink tinged discharge and some midline lower pelvic discomfort. Continue to monitor closely for intraamniotic infection. No indication for delivery at this time. Glucose, Ur 03/10/2021 Normal Total Protein, Urine 03/10/2021 Negative Bilirubin Urine 03/10/2021 Negative Urobilinogen, Urine 03/10/2021 Normal pH, Urine 03/10/2021 7.0 Specific [place], Urine 03/10/2021 1.009 Occult Blood,Urine 03/10/2021 Negative Ketones, Urine 03/10/2021 10* Nitrite, Urine 03/10/2021 Negative LEUKOCYTES, UA 03/10/2021 Negative Appearance 03/10/2021 Clear Color, Urine 03/10/2021 Yellow I spent 15 minutes in the visit, with more than 50% of the total ycdw-pj-lahj time of the visit in counseling/coordination of care. * Anna Gomes DO - 2021 6:17 AM EDT Images from the original note were not included. Maternal Medicine Service Resident Progress Note 2021 6:17 AM 01/19/2021 Hospital Day: 50 Raymond Brownlee, 21 y.o. 32w0d Patient has been seen and examined. Pt complains of lower abdominal pressure and generalized intermittent cramping overnight. She states that she is still having pinked tinged vaginal fluids as well.She denies fevers, chills, nausea and vomiting. Positive movement Negative vaginal bleeding Positive LOF Negative Contractions Vitals: 03/08/21 1702 03/08/21200903/08/21 2346 03/09/21 0604 BP: 90/60 116/69 (!) 100/59 109/69 Pulse: 89 84 80 90 Resp: 16 16 16 16 Temp: 98.6 F (37 C) 97.4 F (36.3 C) 97.3 F (36.3 C) 97.7 F (36.5 C) TempSrc: Oral Temporal Temporal Temporal SpO2: 97% 96% 98% Weight: Height: FHT: 130, moderate variability Accels: present Decels: variable Contractions: none Physical Exam: Gen: NAD HEENT: Normocephalic, Atraumatic Resp: no respiratory distress Card: RRR Abd: soft, gravid, NTND, no rebound, no guarding. negative fundal tenderness Ext: No LE edema, no calf tenderness or swelling Medications: Current Facility-Administered Medications Medication Dose Route Frequency Provider Last Rate Last Admin calcium carbonate (TUMS) chewable tablet 500 mg 500 mg Oral TID PRN Hollie W Faby, DO 500 mg at 01/25/21 0010 famotidine (PEPCID) tablet 20 mg 20 mg Oral BID Hollie W Faby, DO 20 mg at 03/08/212116 0.9 % sodium chloride infusion 25 mL Intravenous PRN Urmila Wright, DO ondansetron (ZOFRAN-ODT) disintegrating tablet 4 mg 4 mg Oral Q8H PRN Urmila Wright, DO 4 mg at 02/21/21 1349 Or ondansetron (ZOFRAN) injection 4 mg 4 mg Intravenous Q6H PRN Urmila Simental Smdidierker, DO vitamin 27-1 MG tablet 1 tablet 1 tablet Oral Daily Urmila Wright, DO 1 tablet at 03/08/21 0917 docusate sodium (COLACE) capsule 100 mg 100 mg Oral BID PRN Urmila Wright, DO 100 mg at acyclovir (ZOVIRAX) capsule 400 mg 400 mg Oral TID Urmila Simental Smerker, DO 400 mg at 03/08/212116 Assessment/Plan: Raymond Brownlee is a 21 y.o. female 32w0d PPROM - VSS, no fundal tenderness - Continue expectant management HSV - Continue acyclovir IUP @ 32w0d - Dating by first trimester US - Cephalic on 03/03 - MonitorinhrTID - Diet:General - BMZ x2 on 01/18-, rBMZ 02/21- Further plan pending d/w attending. Xiao Moran 2021, 6:17 AM Above note written by MS LENY. Patient also examined by myself. Agree with assessment and plan. Patient continues to complain of intermittent cramping but no different than yesterday. Still continues to leak small amount of pink tinged fluid. No other concerns at this time. Associated attestation - Francesca López DO - 2021 12:21 PM EDT Attending Supervising Physician's Attestation Statement I performed a history and physical examination on the patient and discussed the management with theresident physician. I reviewed and agree with the findings and plan as documented in the note. Pt hospital day #50 with PPROM. C/O lightly pink tinged fluid and some lower cramping. No fundal tenderness with palpation. Afebrile. Will place on CFM at this time. Pt instructed to notify us if hercramping worsens, has uterine tenderness, feels hot, has any vaginal bleeding. I spent 15 minutes in the visit, with more than 50% of the total ldyz-bl-bvqq time of the visit in counseling/coordination of care. * Anna Gomes DO - 03/08/2021 4:02 PM EDT In patient's room to assess for another episode of pink tinged discharge and cramping. Patient states the cramps are the same as they have been since she first had pink tinged fluid over the weekend.She also complains of some lower abdominal achiness but denies painful contractions, fevers or chills. Pad was saved in restroom and showed minimal light pink tinged fluid PE: Gen: NAD, appears comfortable in bed SSE: odorless clear fluid noted on pad, visually unchanged from previous exam, 0-1cm Abdomen: no fundal tenderness, mild achiness in low pelvis A/P: - Place back on monitor early for evening 1h monitoring - Low suspicion of labor or chorio at this time given benign exam but if becomes uncomfortable or starts to labor, will be candidate for magnesium for neuroprotection - FHT Cat I - Will replace IV at this time, ok for hep lock * Anna Gomes DO - 03/08/2021 6:23 AM EDT Images from the original note were not included. Maternal Medicine Service Resident Progress Note 03/08/2021 6:23 AM 01/19/2021 Hospital Day: 49 Raymond Brownlee, 20 y.o. 31w6d Patient has been seen and examined. Pt resting comfortably no complaints. States that she had some pink-tinged fluid leaking yesterday but any further leakage has been clear. Denies headache, nausea,vomiting, fever, chills and abdominal pain/ cramping. Positive movement Negative vaginal bleeding Positive LOF Negative Contractions Vitals: 03/07/21 2104 03/07/21 2109 03/07/21 2329 03/08/21 0310 BP: 103/60 96/60 Pulse: 81 82 101 86 Resp: 18 18 Temp: 99.4 F (37.4 C) 98.2 F (36.8 C) TempSrc: Temporal Temporal SpO2: 98% 96% Weight: Height: FHT: 130, moderate variability Accels: present Decels: absent Contractions: none Physical Exam: Gen: NAD HEENT: Normocephalic, Atraumatic, EOMI, MMM Resp: no increased work of breathing or shortness of breath Card: RRR Abd: soft, gravid, NTND, no rebound, no guarding. negative fundal tenderness Ext: No LE edema, no calf tenderness or swelling Medications: Current Facility-Administered Medications Medication Dose Route Frequency Provider Last Rate Last Admin calcium carbonate (TUMS) chewable tablet 500 mg 500 mg Oral TID PRN Hollie W Faby, DO 500 mg at 01/25/21 0010 famotidine (PEPCID) tablet 20 mg 20 mg Oral BID Hollie W Faby, DO 20 mg at 03/07/21 2145 0.9 % sodium chloride infusion 25 mL Intravenous PRN Urmila C Smerker, DO ondansetron (ZOFRAN-ODT) disintegrating tablet 4 mg 4 mg Oral Q8H PRN Urmila C Smerker, DO 4 mg at 02/21/21 1349 Or ondansetron (ZOFRAN) injection 4 mg 4 mg Intravenous Q6H PRN Urmila C Smerker, DO vitamin 27-1 MG tablet 1 tablet 1 tablet Oral Daily Urmila C Smerker, DO 1 tablet at 03/07/21 0921 docusate sodium (COLACE) capsule 100 mg 100 mg Oral BID PRN Urmila C Smerker, DO 100 mg at acyclovir (ZOVIRAX) capsule 400 mg 400 mg Oral TID Urmila C Smerker, DO 400 mg at 03/07/212144 Assessment/Plan: Raymond Brownlee is a 20 y.o. female 31w6d PPROM - VSS, no fundal tenderness - Continue expectant management HSV - Continue acyclovir IUP @ 31w6d - Dating by first tri US - Cephalic on 03/03 - MonitorinhrTID - Diet:General - BMZ x2 on 01/18-, rBMZ 02/21- Further plan pending d/w attending. Xiao Moran 03/08/2021, 6:23 AM Patient seen and evaluated by myself as well. Above note written by MS MICHELE, agree with assessment and plan. Patient denies any further pink tinged fluid. She rarely will have cramping but always resolves. FHT Cat I. Afebrile, VSS, no signs or symptoms of infection. Continue expectant management. Associated attestation - Francesca López DO - 03/08/2021 3:00 PM EDT Attending Supervising Physician's Attestation Statement I performed a history and physical examination on the patient and discussed the management with theresident physician. I reviewed and agree with the findings and plan as documented in the note. Stable PPROM. Continue inpt management. Plan delivery at 34 weeks unless indicated sooner. I spent 15 minutes in the visit, with more than 50% of the total qoch-pz-tppz time of the visit in counseling/coordination of care. * Erin Mejia DTR - 03/07/2021 11:12 AM EDT Nutrition update completed. Chart reviewed. Patient to be monitored and followed by the diet flight readiness technician. * Anna Gomes DO - 03/07/2021 6:13 AM EDT Images from the original note were not included. Maternal Medicine Service Resident Progress Note 03/07/2021 6:13 AM 01/19/2021 Hospital Day: 48 Raymond Brownlee, 20 y.o. 31w5d Patient has been seen and examined. Patient doing well this AM, no complaints. Positive movement Negative vaginal bleeding Negative LOF Negative Contractions Vitals: 03/06/21 1545 03/06/21 1957 03/06/21 2334 03/07/21 0553 BP: 118/78 100/67 (!) 99/56 (!) 100/59 Pulse: 104 89 68 77 Resp: 18 18 16 18 Temp: 97.8 F (36.6 C) 98.1 F (36.7 C) 98.4 F (36.9 C) 97.4 F (36.3 C) TempSrc: Temporal Temporal Temporal Temporal SpO2: 97% 98% 98% 96% Weight: Height: FHT: 130, moderate variability Accels: present Decels: absent Contractions: none Physical Exam: Gen: NAD HEENT: Normocephalic, Atraumatic Resp: No respiratory distress Card: RRR Abd: soft, gravid, NTND, no rebound, no guarding. negative fundal tenderness Ext: No LE edema, no calf tenderness or swelling Medications: Current Facility-Administered Medications Medication Dose Route Frequency Provider Last Rate Last Admin calcium carbonate (TUMS) chewable tablet 500 mg 500 mg Oral TID PRN Hollie Hobbs DO 500 mg at 01/25/21 0010 famotidine (PEPCID) tablet 20 mg 20 mg Oral BID Hollie Hobbs, DO 20 mg at 03/06/212102 0.9 % sodium chloride infusion 25 mL Intravenous PRN Urmila Wright, DO ondansetron (ZOFRAN-ODT) disintegrating tablet 4 mg 4 mg Oral Q8H PRN Urmila Wright, DO 4 mg at 02/21/21 1349 Or ondansetron (ZOFRAN) injection 4 mg 4 mg Intravenous Q6H PRN Urmila Wright, DO vitamin 27-1 MG tablet 1 tablet 1 tablet Oral Daily Urmila Wright, DO 1 tablet at 03/06/21 0907 docusate sodium (COLACE) capsule 100 mg 100 mg Oral BID PRN Urmila Wright, DO 100 mg at acyclovir (ZOVIRAX) capsule 400 mg 400 mg Oral TID Urmila Wright, DO 400 mg at 03/06/212101 Assessment/Plan: Raymond Brownlee is a 20 y.o. female 31w5d PPROM - VSS, no fundal tenderness - Continue expectant management HSV - Continue acyclovir IUP @ 31w5d - Dating by tri US - Cephalic on 03/03 - MonitorinhrTID - Diet:General - BMZ x2 on 01/18-, rBMZ 02/21- Further plan pending d/w attending. Anna Gomes DO 03/07/2021, 6:13 AM Associated attestation - Francesca Lópze DO - 03/07/2021 3:57 PM EDT Attending Supervising Physician's Attestation Statement I performed a history and physical examination on the patient and discussed the management with theresident physician. I reviewed and agree with the findings and plan as documented in the note. Pt doing well today. Abdomen is non-tender. No vaginal bleeding. Continues to have leaking of clearfluid, no odor. US reassuring. FHR cat I. Contniue current plan of PPROM. I spent 15 minutes in the visit, with more than 50% of the total ehix-al-idir time of the visit in counseling/coordination of care. * Lisa Wilkins MD - 03/06/2021 5:59 AM EDT Images from the original note were not included. Maternal Medicine Service Resident Progress Note 03/06/2021 5:59 AM 01/19/2021 Hospital Day: 47 Raymond Brownlee, 20 y.o. 31w4d Patient has been seen and examined. No complaints this morning. Cramping and spotting has resolved. Positive movement Negative vaginal bleeding Positive LOF Negative Contractions Vitals: 03/05/21 1146 03/05/21 1554 03/05/21 1940 03/05/21 2334 BP: 112/69 97/67 112/71 (!) 90/56 Pulse: 81 96 100 99 Resp: 18 18 18 16 Temp: 98.6 F (37 C) 98.2 F (36.8 C) 98.2 F (36.8 C) 99.6 F (37.6 C) TempSrc: Oral Temporal Temporal Temporal SpO2: 97% 98% 97% 97% Weight: Height: FHT: 130, moderate variability Accels: present Decels: variable Contractions: rare early on 03/05, none 03/06 Physical Exam: Gen: NAD HEENT: Normocephalic, Atraumatic, EOMI, MMM Resp: No respiratory distress, no increased WOB Card: regular rate Abd: soft, gravid, NTND, no rebound, no guarding. negative fundal tenderness Ext: No LE edema, no calf tenderness or swelling Medications: Current Facility-Administered Medications Medication Dose Route Frequency Provider Last Rate Last Admin sodium chloride flush 0.9 % injection 5-40 mL 5-40 mL Intravenous BID José Miguel Pace, DO 10 mL at 03/05/212049 calcium carbonate (TUMS) chewable tablet 500 mg 500 mg Oral TID PRN Hollie W Faby, DO 500 mg at 01/25/21 001 famotidine (PEPCID) tablet 20 mg 20 mg Oral BID Hollie W Faby, DO 20 mg at 03/05/212048 0.9 % sodium chloride infusion 25 mL Intravenous PRN Urmila C Smerker, DO ondansetron (ZOFRAN-ODT) disintegrating tablet 4 mg 4 mg Oral Q8H PRN Urmila C Smerker, DO 4 mg at 02/21/21 1349 Or ondansetron (ZOFRAN) injection 4 mg 4 mg Intravenous Q6H PRN Urmila C Smerker, DO vitamin 27-1 MG tablet 1 tablet 1 tablet Oral Daily Urmila C Smerker, DO 1 tablet at 03/05/21 0955 docusate sodium (COLACE) capsule 100 mg 100 mg Oral BID PRN Urmila C Smerker, DO 100 mg at acyclovir (ZOVIRAX) capsule 400 mg 400 mg Oral TID Urmila C Smerker, DO 400 mg at 03/05/212048 Assessment/Plan: Raymond Brownlee is a 20 y.o. female 31w4d PPROM - Afebrile, nontachycardic, no fundal tenderness - Low concern for infection or active labor - Continue expectant management HSV - Continue acyclovir IUP @ 31w4d - Dating by 1st trimester US - Cephalic on 02/24 - MonitorinhrTID - Diet:General - BMZ x2 on 01/18-, rBMZ 02/21- Further plan pending d/w attending. Lisa Wilkins MD 03/06/2021, 5:59 AM Associated attestation - Rohit Stein MD - 03/06/2021 11:06 AM EDT I performed a history and physical examination on the patient and discussed the management with theresident physician. I reviewed and agree with the findings and plan as documented in their note today. 20 yr old at 31 4/7 GA with the following: PPROM no signs of chorio, continued inpatient expectant management s/p rBMZ as well and is a candidate for magnesium for neuroprotection if needed if GA <32 weeks GA HSV continued acyclovir Improved symptoms from yesterday Discussed with team given > 72 hours from last magnesium would bolus only 4gm when active labor for neuroprotection. She has had it in the past with this hospitalization I spent 15 minutes in the visit today on the floor reviewing the chart, discussing the case with the residency staff and nursing Rohit Stein MD MD * Joana Duvall MD - 03/05/2021 6:21 AM EDT Images from the original note were not included. Maternal Medicine Service Resident Progress Note 03/05/2021 6:21 AM 01/19/2021 Hospital Day: 46 Raymond Brownlee, 20 y.o. 31w3d Patient has been seen and examined. Patient reported increased cramping last night. This am notes that she is still feeling some cramping. Denies any other changes. Overall comfortable. Positive movement Negative vaginal bleeding Positive LOF Positive Contractions Vitals: 03/04/21 1839 03/04/21 1953 03/04/21 2354 03/05/21 0554 BP: (!) 100/56 106/64 (!) 99/59 Pulse: 81 79 83 107 Resp: 16 16 16 Temp: 98.4 F (36.9 C) 97.6 F (36.4 C) 98.2 F (36.8 C) TempSrc: Temporal Temporal Temporal SpO2: 96% 97% 96% Weight: Height: FHT: 140, moderate variability Accels: present Decels: absent Contractions: irregular noted last night, monitored for 5 hours with rare contractions Physical Exam: Gen: NAD HEENT: Normocephalic, Atraumatic, EOMI, MMM Resp: CTABL, no WRR Card: RRR S1S2 Abd: soft, gravid, NTND, no rebound, no guarding. negative fundal tenderness Ext: No LE edema, no calf tenderness or swelling Medications: Current Facility-Administered Medications Medication Dose Route Frequency Provider Last Rate Last Admin calcium carbonate (TUMS) chewable tablet 500 mg 500 mg Oral TID PRN Hollie W Faby, DO 500 mg at 01/25/21 0010 famotidine (PEPCID) tablet 20 mg 20 mg Oral BID Hollie W Faby, DO 20 mg at 03/04/212122 0.9 % sodium chloride infusion 25 mL Intravenous PRN Urmila Wright DO ondansetron (ZOFRAN-ODT) disintegrating tablet 4 mg 4 mg Oral Q8H PRN Urmila C Smerker, DO 4 mg at 02/21/21 1349 Or ondansetron (ZOFRAN) injection 4 mg 4 mg Intravenous Q6H PRN Urmila C Smerker, DO vitamin 27-1 MG tablet 1 tablet 1 tablet Oral Daily Urmila C Smdidierker, DO 1 tablet at 03/04/21 0944 docusate sodium (COLACE) capsule 100 mg 100 mg Oral BID PRN Urmila C Smerker, DO 100 mg at acyclovir (ZOVIRAX) capsule 400 mg 400 mg Oral TID Urmila C Smerker, DO 400 mg at 03/04/212122 Assessment/Plan: Raymond Brownlee is a 20 y.o. female 31w3d PPROM - Some cramping overnight but unchanged on speculum exam - Afebrile without fundal tenderness - Low concern for infection or labor - Continue expectant management IUP @ 31w3d - Dating by 1st trimester U/S - Cephalic on 02/24 - MonitorinhrTID - Diet:General - BMZ x2 on 01/18-, rBMZ 02/21- Further plan pending d/w attending. Joana Duvall MD 03/05/2021, 6:21 AM Associated attestation - Rohit Stein MD - 03/05/2021 11:54 AM EDT I performed a history and physical examination on the patient and discussed the management with theresident physician. I reviewed and agree with the findings and plan as documented in their note today. 20 yr old at 31 3/7 GA with the following: PPROM no signs of chorio, continued inpatient expectant management s/p rBMZ as well and is a candidate for magnesium for neuroprotection if needed if GA <32 weeks GA HSV continued acyclovir More cramping and complaints of brown type discharge which is new. Suspect possible onset of labor anytime and this was discussed. Abd non tender Discussed with team given > 72 hours from last magnesium would bolus only 4gm when active labor for neuroprotection. She has had it in the past this hospitalization I spent 15 minutes in the visit today on the floor reviewing the chart, discussing the case with the residency staff and nursing Rohit Stein MD MD * Dung Ellison MD - 03/04/2021 6:43 PM EDT In to assess patient for increase in cramping and some pink tinged discharge. States it is intermittent, but worse than prior. Placed back on monitor with intermittent contractions noted. SSE shows no change in dilation visually. Pt overall comfortable without significant increase in LOF. Will continue to monitor symptoms and keep on CEFM for now. On reevaluation, patient is more comfortable. Minimal contractions on toco. Cat I overall. No longer having any pink discharge or cramping. Pt requesting off cotinuous monitoring. Will resume TID monitoring * Haily Lopez MD - 03/04/2021 6:05 AM EDT Images from the original note were not included. Maternal Medicine Service Resident Progress Note 03/04/2021 6:06 AM 01/19/2021 Hospital Day: 45 Raymond Brownlee, 20 y.o. 31w2d Patient has been seen and examined. Pt denies purulent vaginal discharge, abdominal pain, cramping,nausea, vomiting, fevers, chills. She states that the headache she had yesterday has resolved. Positive movement Negative vaginal bleeding Positive LOF Negative Contractions Vitals: 03/03/21 1226 03/03/21 1549 03/03/21 1941 03/03/21 2259 BP: 110/76 102/61 105/65 99/62 Pulse: 116 87 91 77 Resp: 18 18 16 16 Temp: 98.4 F (36.9 C) 97.8 F (36.6 C) 98.2 F (36.8 C) 97.9 F (36.6 C) TempSrc: Temporal Oral Temporal Temporal SpO2: 99% 97% 98% 97% Weight: Height: FHT: 130, moderate variability Accels: present Decels: absent Contractions: none Physical Exam: Gen: NAD HEENT: Normocephalic, Atraumatic Resp: no increased work of breathing or respiratory distress Card: RRR Abd: soft, gravid, NTND, no rebound, no guarding. negative fundal tenderness Ext: No LE edema, no calf tenderness or swelling Medications: Current Facility-Administered Medications Medication Dose Route Frequency Provider Last Rate Last Admin calcium carbonate (TUMS) chewable tablet 500 mg 500 mg Oral TID PRN Hollie W Faby, DO 500 mg at 01/25/21 0010 famotidine (PEPCID) tablet 20 mg 20 mg Oral BID Hollie W Faby, DO 20 mg at 03/03/212042 0.9 % sodium chloride infusion 25 mL Intravenous PRN Urmila Wright, DO ondansetron (ZOFRAN-ODT) disintegrating tablet 4 mg 4 mg Oral Q8H PRN Urmila Wright, DO 4 mg at 02/21/21 1349 Or ondansetron (ZOFRAN) injection 4 mg 4 mg Intravenous Q6H PRN Urmila Ottoker, DO vitamin 27-1 MG tablet 1 tablet 1 tablet Oral Daily Urmila Wright, DO 1 tablet at 03/03/21 0928 docusate sodium (COLACE) capsule 100 mg 100 mg Oral BID PRN Urmila Ottoker, DO 100 mg at acyclovir (ZOVIRAX) capsule 400 mg 400 mg Oral TID Urmila Ottoker, DO 400 mg at 03/03/212042 Assessment/Plan: Raymond Brownlee is a 20 y.o. female 31w2d PPROM - Afebrile, no fundal tenderness, no signs/symptoms of infection - Continue expectant management HSV - Continue acyclovir ppx IUP @ 31w2d - Dating by first trimester US - Cephalic on 02/24 - MonitorinhrTID - Diet:General - BMZ x2 on 01/18-, rBMZ 02/21-13 Further plan pending d/w attending. Xiao Moran 03/04/2021, 6:06 AM Above note written by MS MICHELE. Patient also seen and examined by myself, agree with above documentation. VSS, Afebrile. No signs/symptoms of infection. Continue expectant management. Growth 03/03: EFW 1621g, 43%. BPP 6/8 (off for fluid) JUAN 4.6. Maternal Medicine Attending Attestation: I have performed a history and physical examination on the patient and discussed the management with the residents physician. I reviewed and agree with the findings and plan as documented in the note. 20 y.o. at 31w2d with PPROM Will continue expectant management. I spent 15 minutes at the visit, with more than 50% of the total face to face time of the visit in counseling and coordination of care. Haily Lopez MD * Anna Gomes DO - 03/03/2021 6:01 AM EDT Images from the original note were not included. Maternal Medicine Service Resident Progress Note 03/03/2021 6:02 AM 01/19/2021 Hospital Day: 44 Raymond Brownlee, 20 y.o. 31w1d Patient has been seen and examined. Pt denies fevers, chills, purulent discharge, abdominal pain, cramping. Positive movement Negative vaginal bleeding Positive LOF Negative Contractions Vitals: 03/02/21 1216 03/02/21 1608 03/02/21202103/02/21 2337 BP: 117/64 108/66 111/70 105/61 Pulse: 94 96 99 72 Resp: 18 18 17 16 Temp: 97.3 F (36.3 C) 98.1 F (36.7 C) 97.9 F (36.6 C) 97.6 F (36.4 C) TempSrc: Temporal Temporal Temporal Temporal SpO2: 97% 96% 97% 96% Weight: Height: FHT: 130, moderate variability Accels: present Decels: absent Contractions: none Physical Exam: Gen: NAD HEENT: Normocephalic, Atraumatic Resp:no increased work of breathing Card: RRR Abd: soft, gravid, NTND, no rebound, no guarding. negative fundal tenderness Ext: No LE edema, no calf tenderness or swelling Medications: Current Facility-Administered Medications Medication Dose Route Frequency Provider Last Rate Last Admin calcium carbonate (TUMS) chewable tablet 500 mg 500 mg Oral TID PRN Hollie W Faby, DO 500 mg at 01/25/21 0010 famotidine (PEPCID) tablet 20 mg 20 mg Oral BID Hollie W Faby, DO 20 mg at 03/02/21 2200 0.9 % sodium chloride infusion 25 mL Intravenous PRN Urmila Matthewserker, DO ondansetron (ZOFRAN-ODT) disintegrating tablet 4 mg 4 mg Oral Q8H PRN Urmila C Smerker, DO 4 mg at 02/21/21 1349 Or ondansetron (ZOFRAN) injection 4 mg 4 mg Intravenous Q6H PRN Urmila C Smerker, DO acetaminophen (TYLENOL) tablet 650 mg 650 mg Oral Q4H PRN Urmila C Smerker, DO 650 mg at 02/20/21 1602 vitamin 27-1 MG tablet 1 tablet 1 tablet Oral Daily Urmila C Smerker, DO 1 tablet at 03/02/21 0918 docusate sodium (COLACE) capsule 100 mg 100 mg Oral BID PRN Urmila C Smerker, DO 100 mg at acyclovir (ZOVIRAX) capsule 400 mg 400 mg Oral TID Urmila C Smerker, DO 400 mg at 03/02/21 2159 Assessment/Plan: Raymond Brownlee is a 20 y.o. female 31w1d PPROM - Afebrile, no fundal tenderness, no signs/symptoms of infection - Continue expectant management HSV - Continue acyclovir ppx IUP @ 31w1d - Dating by 1st trimester US - Cephalic on 02/24 - MonitorinhrTID - Diet:General - BMZ x2 on 01/18-, rBMZ 02/21- Further plan pending d/w attending. Xiao Moran 03/03/2021, 6:02 AM Above note written by MS LENY. Agree with assessment. VSS, no fundal tenderness, leaking minimal clear fluid. Continue expectant management. Associated attestation - Rohit Stein MD - 03/03/2021 11:22 AM EDT I performed a history and physical examination on the patient and discussed the management with theresident physician. I reviewed and agree with the findings and plan as documented in their note today. 20 yr old at 31 1/7 GA with the following: PPROM no signs of chorio, continued inpatient expectant management s/p rBMZ as well and is a candidate for magnesium for neuroprotection if needed if GA <32 weeks GA HSV continued acyclovir BPP 01/18 JUAN of 4.6cm -2 for fluid today I spent 15 minutes in the visit today on the floor reviewing the chart, discussing the case with the residency staff and nursing Rohit Stein MD MD * Erin Mejia DTR - 03/02/2021 4:09 PM EDT Nutrition update completed. Chart reviewed. Patient to be monitored and followed by the diet flight readiness technician. * Anna Gomes DO - 03/02/2021 6:16 AM EDT Images from the original note were not included. Maternal Medicine Service Resident Progress Note 03/02/2021 6:20 AM 01/19/2021 Hospital Day: 43 Raymond Brownlee, 20 y.o. 31w0d Patient has been seen and examined. Pt denies abdominal pain/ cramping, fevers, chills, nausea, vomiting, and purulent vaginal discharge. Positive movement Negative vaginal bleeding Positive LOF Negative Contractions Vitals: 03/01/21 1617 03/01/21 1949 03/01/21 2342 03/02/21 0544 BP: 112/67 116/73 103/60 107/63 Pulse: 95 98 81 72 Resp: 18 18 16 16 Temp: 97 F (36.1 C) 97.7 F (36.5 C) 97.8 F (36.6 C) 98.1 F (36.7 C) TempSrc: Temporal Temporal Temporal Temporal SpO2: 97% 98% 98% 97% Weight: Height: FHT: 140, moderate variability Accels: present Decels: absent Contractions: none Physical Exam: Gen: NAD HEENT: Normocephalic, Atraumatic, Resp: no increased work of breathing or shortness of breath Card: RRR Abd: soft, gravid, NTND, no rebound, no guarding. negative fundal tenderness Ext: No LE edema, no calf tenderness or swelling Medications: Current Facility-Administered Medications Medication Dose Route Frequency Provider Last Rate Last Admin calcium carbonate (TUMS) chewable tablet 500 mg 500 mg Oral TID PRN Hollie Rios Faby, DO 500 mg at 01/25/21 0010 famotidine (PEPCID) tablet 20 mg 20 mg Oral BID Hollie W Faby, DO 20 mg at 03/01/212113 0.9 % sodium chloride infusion 25 mL Intravenous PRN Urmila Wright, DO ondansetron (ZOFRAN-ODT) disintegrating tablet 4 mg 4 mg Oral Q8H PRN Urmila Wright, DO 4 mg at 02/21/21 1349 Or ondansetron (ZOFRAN) injection 4 mg 4 mg Intravenous Q6H PRN Urmila Ottoker, DO acetaminophen (TYLENOL) tablet 650 mg 650 mg Oral Q4H PRN Urmila Matthewserker, DO 650 mg at 02/20/21 1602 vitamin 27-1 MG tablet 1 tablet 1 tablet Oral Daily Urmila Ottoker, DO 1 tablet at 03/01/21 0938 docusate sodium (COLACE) capsule 100 mg 100 mg Oral BID PRN Urmila Ottoker, DO 100 mg at 9 acyclovir (ZOVIRAX) capsule 400 mg 400 mg Oral TID Urmila Matthewserker, DO 400 mg at 03/01/212113 Assessment/Plan: Raymond Brownlee is a 20 y.o. female 31w0d PPROM - Afebrile, no fundal tenderness, no signs/symptoms of infection - Continue expectant management HSV - Continue acyclovir ppx IUP @ 31w0d - Dating by first tri US - Cephalic on 02/24 - MonitorinhrTID - Diet:General - BMZ x2 on 01/18-, rBMZ 02/21- Further plan pending d/w attending. Xiao Moran 03/02/2021, 6:20 AM Patient seen and evaluated by myself. Above note written by MS LENY, agree with assessment and plan. No signs or symptoms of infection, continue expectant management. Associated attestation - Rohit Stein MD - 03/02/2021 4:34 PM EDT I performed a history and physical examination on the patient and discussed the management with theresident physician. I reviewed and agree with the findings and plan as documented in their note today. 20 yr old at 31 0/7 GA with the following: PPROM no signs of chorio, continued inpatient expectant management s/p rBMZ as well and is a candidate for magnesium for neuroprotection if needed if GA <32 weeks GA HSV continued acyclovir Improved fluid on last scan I spent 15 minutes in the visit today on the floor reviewing the chart, discussing the case with the residency staff and nursing Rohit Stein MD MD * Anna Gomes DO - 03/01/2021 5:56 AM EDT Images from the original note were not included. Maternal Medicine Service Resident Progress Note 03/01/2021 5:57 AM 01/19/2021 Hospital Day: 42 Raymond Brownlee, 20 y.o. 30w6d Patient has been seen and examined. Pt resting comfortably. Denies abdominal pain, cramping, nausea, vomiting, fevers, chills, purulent discharge. Positive movement Negative vaginal bleeding Positive LOF Negative Contractions Vitals: 02/28/21 1149 02/28/21 1558 02/28/21 2124 03/01/21 0012 BP: 107/61 107/69 94/62 98/63 Pulse: 117 107 94 94 Resp: 18 18 16 16 Temp: 97.8 F (36.6 C) 98.7 F (37.1 C) 97.3 F (36.3 C) 98.8 F (37.1 C) TempSrc: Temporal Temporal Temporal Temporal SpO2: 98% 97% 96% 97% Weight: Height: FHT: 130, moderate variability Accels: present Decels: variable decel @ 1640 Contractions: none Physical Exam: Gen: NAD HEENT: Normocephalic, Atraumatic Resp: No respiratory distress, no increased work of breathing Card: RRR Abd: soft, gravid, NTND, no rebound, no guarding. negative fundal tenderness Ext: No LE edema, no calf tenderness or swelling Medications: Current Facility-Administered Medications Medication Dose Route Frequency Provider Last Rate Last Admin calcium carbonate (TUMS) chewable tablet 500 mg 500 mg Oral TID PRN Hollie W Faby, DO 500 mg at 01/25/21 0010 famotidine (PEPCID) tablet 20 mg 20 mg Oral BID Hollie W Faby, DO 20 mg at 02/28/21 2156 0.9 % sodium chloride infusion 25 mL Intravenous PRN Urmila Ottoker, DO ondansetron (ZOFRAN-ODT) disintegrating tablet 4 mg 4 mg Oral Q8H PRN Urmila Simental Smerker, DO 4 mg at 02/21/21 1349 Or ondansetron (ZOFRAN) injection 4 mg 4 mg Intravenous Q6H PRN Urmila C Smerker, DO acetaminophen (TYLENOL) tablet 650 mg 650 mg Oral Q4H PRN Urmila C Smerker, DO 650 mg at 02/20/21 1602 vitamin 27-1 MG tablet 1 tablet 1 tablet Oral Daily Urmila C Smerker, DO 1 tablet at 02/28/21 0900 docusate sodium (COLACE) capsule 100 mg 100 mg Oral BID PRN Urmila C Smerker, DO 100 mg at 049 acyclovir (ZOVIRAX) capsule 400 mg 400 mg Oral TID Urmila Wright DO 400 mg at 02/28/212155 Assessment/Plan: Raymond Brownlee is a 20 y.o. female 30w6d PPROM - Afebrile, no fundal tenderness, no signs/symptoms of infection - Continue expectant management HSV - Continue acyclovir ppx IUP @ 30w6d - Dating by 1st tri US - Cephalic on 02/24 - MonitorinhrTID - Diet:General - BMZ x2 on , rBMZ 02/21- Further plan pending d/w attending. Xiao Moran 03/01/2021, 5:57 AM Above note written by MS4. Patient also seen and evaluated by myself, agree with above note and made edits as needed. Patient had some cramping yesterday evening but completely resolved. She is stillleaking small amounts of clear fluid. No fundal tenderness, VSS, afebrile Associated attestation - Haily Lopez MD - 03/01/2021 11:05 AM EDT Maternal Medicine Attending Attestation: I have performed a history and physical examination on the patient and discussed the management with the residents physician. I reviewed and agree with the findings and plan as documented in the note. 20 y.o. at 30w6d with PPROM. The patient denies nausea, vomiting, vaginal bleeding, contractions, and/or abdominal pain. She also denies blurring of vision, visual disturbances, headaches, and /or epigastric pain. She reports the fetus to be active. Vitals: 02/28/21 2124 03/01/21 0012 03/01/21 0450 03/01/21 0756 BP: 94/62 98/63 100/60 Pulse: 94 94 98 Resp: 16 16 18 Temp: 97.3 F (36.3 C) 98.8 F (37.1 C) 98.6 F (37 C) 97.8 F (36.6 C) TempSrc: Temporal Temporal Temporal SpO2: 96% 97% 100% Weight: Height: Plan: Expectant management Hope to deliver at 34 weeks I spent 15 minutes at the visit, with more than 50% of the total face to face time of the visit in counseling and coordination of care. Haily Lopez MD * Anna Gomes, DO - 02/28/2021 5:56 AM EDT Images from the original note were not included. Maternal Medicine Service Resident Progress Note 02/28/2021 6:38 AM 01/19/2021 Hospital Day: 41 Raymond Brownlee, 20 y.o. 30w5d Patient has been seen and examined. Pt initially sleeping. Denies abdominal pain/cramping, fevers, chills, nausea, vomiting. Positive movement Negative vaginal bleeding Positive LOF Negative Contractions Vitals: 02/27/21 1625 02/27/21200902/27/21 2309 02/28/21 0602 BP: 97/67 102/64 102/64 (!) 90/55 Pulse: 87 92 81 88 Resp: 16 16 16 16 Temp: 98.1 F (36.7 C) 97.7 F (36.5 C) 97.9 F (36.6 C) 97.9 F (36.6 C) TempSrc: Temporal Temporal Temporal Temporal SpO2: 97% 98% 97% 96% Weight: Height: FHT: 130, moderate variability Accels: present Decels: absent Contractions: none Physical Exam: Gen: NAD HEENT: Normocephalic, Atraumatic Resp: no increased work of breathing or shortness of breath Card: RRR Abd: soft, gravid, NTND, no rebound, no guarding. negative fundal tenderness Ext: No LE edema, no calf tenderness or swelling Medications: Current Facility-Administered Medications Medication Dose Route Frequency Provider Last Rate Last Admin calcium carbonate (TUMS) chewable tablet 500 mg 500 mg Oral TID PRN Hollie W Faby, DO 500 mg at 01/25/21 0010 famotidine (PEPCID) tablet 20 mg 20 mg Oral BID Hollie W Faby, DO 20 mg at 02/27/212125 0.9 % sodium chloride infusion 25 mL Intravenous PRN Urmila C Smerker, DO ondansetron (ZOFRAN-ODT) disintegrating tablet 4 mg 4 mg Oral Q8H PRN Urmila C Smerker, DO 4 mg at 02/21/21 1349 Or ondansetron (ZOFRAN) injection 4 mg 4 mg Intravenous Q6H PRN Urmila C Smerker, DO acetaminophen (TYLENOL) tablet 650 mg 650 mg Oral Q4H PRN Urmila C Smerker, DO 650 mg at 02/20/21 1602 vitamin 27-1 MG tablet 1 tablet 1 tablet Oral Daily Urmila C Smerker, DO 1 tablet at 02/27/21 0902 docusate sodium (COLACE) capsule 100 mg 100 mg Oral BID PRN Urmila C Smerker, DO 100 mg at 9 acyclovir (ZOVIRAX) capsule 400 mg 400 mg Oral TID Urmila C Smerker, DO 400 mg at 02/27/212125 Assessment/Plan: Raymond Brownlee is a 20 y.o. female 30w5d PPROM - Afebrile, no fundal tenderness, no signs of infection - Continue expectant management HSV - Continue acyclovir IUP @ 30w5d - Dating by first trimester US - Cephalic on 02/24 - MonitorinhrTID - Diet:General - BMZ x2 on 01/18-, rBMZ 02/21- Further plan pending d/w attending. Anna Gomes DO 02/28/2021, 6:38 AM Associated attestation - Francesca López DO - 02/28/2021 6:22 PM EDT Attending Supervising Physician's Attestation Statement I performed a history and physical examination on the patient and discussed the management with theresident physician. I reviewed and agree with the findings and plan as documented in the note. Pt stable with PPROM. status reassuring. Continue current plan of care. I spent 15 minutes in the visit, with more than 50% of the total [id number] time of the visit in counseling/coordination of care. * Rosemarie Barillas MD - 02/27/2021 5:50 AM EDT Images from the original note were not included. Maternal Medicine Service Resident Progress Note 02/27/2021 5:50 AM 01/19/2021 Hospital Day: 40 Raymond Brownlee, 20 y.o. 30w4d Patient has been seen and examined. Pt has no complains this AM. She denies F/C. Positive movement Negative vaginal bleeding Positive LOF Negative Contractions Vitals: 02/26/21 1559 02/26/21 1604 02/26/21 2019 02/26/21 2316 BP: 102/70 94/61 Pulse: 100 115 99 86 Resp: 16 16 Temp: 97.7 F (36.5 C) 99.4 F (37.4 C) TempSrc: Temporal Temporal SpO2: 98% 97% Weight: Height: FHT: 130, moderate variability Accels: present Decels: one spontaneous late Contractions: none Physical Exam: Gen: NAD HEENT: Normocephalic, Atraumatic Resp: no increase work of breathing Card: RRR S1S2 Abd: soft, gravid, NTND, no rebound, no guarding. negative fundal tenderness Ext: No LE edema, no calf tenderness or swelling Medications: Current Facility-Administered Medications Medication Dose Route Frequency Provider Last Rate Last Admin calcium carbonate (TUMS) chewable tablet 500 mg 500 mg Oral TID PRN Hollie W Faby, DO 500 mg at 01/25/21 0010 famotidine (PEPCID) tablet 20 mg 20 mg Oral BID Hollie W Faby, DO 20 mg at 02/26/21 2145 0.9 % sodium chloride infusion 25 mL Intravenous PRN Urmila Wright, DO ondansetron (ZOFRAN-ODT) disintegrating tablet 4 mg 4 mg Oral Q8H PRN Urmila Wright, DO 4 mg at 02/21/21 1349 Or ondansetron (ZOFRAN) injection 4 mg 4 mg Intravenous Q6H PRN Urmila Ottoker, DO acetaminophen (TYLENOL) tablet 650 mg 650 mg Oral Q4H PRN Urmila C Smerker, DO 650 mg at 02/20/21 1602 vitamin 27-1 MG tablet 1 tablet 1 tablet Oral Daily Urmila Kamille Smerker, DO 1 tablet at 02/26/21 0834 docusate sodium (COLACE) capsule 100 mg 100 mg Oral BID PRN Urmila C Smerker, DO 100 mg at 049 acyclovir (ZOVIRAX) capsule 400 mg 400 mg Oral TID Urmila C Smerker, DO 400 mg at 02/26/21 2145 Assessment/Plan: Raymond Brownlee is a 20 y.o. female 30w4d PPROM - asx - VSS, afebrile, no fundal tenderness - continue expectant management until 34 weeks HSV - continue acyclovir IUP @ 30w4d - Dating by tri US - Cephalic on 02/24 - MonitorinhrTID - Diet:General - BMZ x2 on 01/18-, rBMZ 02/21- Further plan pending d/w attending. Rosemarie Barillas MD 02/27/2021, 5:50 AM Associated attestation - Rohit Stein MD - 02/27/2021 10:37 AM EDT I performed a history and physical examination on the patient and discussed the management with theresident physician. I reviewed and agree with the findings and plan as documented in their note today. 20 yr old at 30 4/7 GA with the following: PPROM no signs of chorio, continued inpatient expectant management s/p rBMZ as well and is a candidate for magnesium for neuroprotection if needed if GA <32 weeks GA HSV continued acyclovir Repeat BPP cephalic and JUAN of 1.7cm with BPP 01/18 continued close follow up of symptoms I spent 15 minutes in the visit today on the floor reviewing the chart, discussing the case with the residency staff and nursing Rohit Stein MD MD * Luis Alberto Castro DO - 02/26/2021 5:55 AM EDT Images from the original note were not included. Maternal Medicine Service Resident Progress Note 02/26/2021 5:55 AM 01/19/2021 Hospital Day: 39 Raymond Brownlee, 20 y.o. 30w3d Patient has been seen and examined. Pt wit no complaints this AM. Denies fevers/ chills, abdominal tenderness. Positive movement Negative vaginal bleeding Positive LOF Negative Contractions Vitals: 02/25/21 2049 02/25/21 2329 02/25/21 2330 02/26/21 0431 BP: (!) 86/53 (!) 96/55 102/62 Pulse: 91 91 85 72 Resp: 16 Temp: 98.6 F (37 C) 97.7 F (36.5 C) TempSrc: Oral Temporal SpO2: 97% 96% Weight: Height: FHT: 130, moderate variability Accels: present Decels: absent Contractions: none Physical Exam: Gen: NAD HEENT: Normocephalic, Atraumatic, EOMI, MMM Resp: CTABL, no WRR Card: RRR S1S2 Abd: soft, gravid, NTND, no rebound, no guarding. negative fundal tenderness Ext: No LE edema, no calf tenderness or swelling Medications: Current Facility-Administered Medications Medication Dose Route Frequency Provider Last Rate Last Admin calcium carbonate (TUMS) chewable tablet 500 mg 500 mg Oral TID PRN Hollie W Faby, DO 500 mg at 01/25/21 0010 famotidine (PEPCID) tablet 20 mg 20 mg Oral BID Hollie W Faby, DO 20 mg at 02/25/21 205 0.9 % sodium chloride infusion 25 mL Intravenous PRN Urmila Ottoker, DO ondansetron (ZOFRAN-ODT) disintegrating tablet 4 mg 4 mg Oral Q8H PRN Urmila C Smerker, DO 4 mg at 02/21/21 1349 Or ondansetron (ZOFRAN) injection 4 mg 4 mg Intravenous Q6H PRN Urmila Simental Smerker, DO acetaminophen (TYLENOL) tablet 650 mg 650 mg Oral Q4H PRN Urmila Simental Smerker, DO 650 mg at 02/20/21 1602 vitamin 27-1 MG tablet 1 tablet 1 tablet Oral Daily Urmila Matthewserker, DO 1 tablet at 02/25/21 0956 docusate sodium (COLACE) capsule 100 mg 100 mg Oral BID PRN Urmila Wright DO 100 mg at acyclovir (ZOVIRAX) capsule 400 mg 400 mg Oral TID Urmila Wright DO 400 mg at 02/25/212049 Assessment/Plan: Raymond Brownlee is a 20 y.o. female 30w3d PPROM - Stable, remains afebrile - Continue expectant management - Candidate for magnesium sulfate for neuroprotection if needed at <32w HSV - Continue acyclovir IUP @ 30w3d - Dating by 1st trimester US - Cephalic on 02/21 - MonitorinhrTID - Diet:General - BMZ x2 on 01/18+9 Further plan pending d/w attending. Luis Alberto Castro DO 02/26/2021, 5:55 AM Associated attestation - Rohit Stein MD - 02/26/2021 4:40 PM EDT I performed a history and physical examination on the patient and discussed the management with theresident physician. I reviewed and agree with the findings and plan as documented in their note today. 20 yr old at 30 3/7 GA with the following: PPROM no signs of chorio, continued inpatient expectant management s/p rBMZ as well and is a candidate for magnesium for neuroprotection if needed if GA <32 weeks GA HSV continued acyclovir Repeat BPP cephalic and JUAN of 1.7cm with BPP 01/18 continued close follow up of symptoms I spent 15 minutes in the visit today on the floor reviewing the chart, discussing the case with the residency staff and nursing Rohit Stien MD MD * Erin Mejia DTR - 02/25/2021 11:10 AM EDT Nutrition update completed. Chart reviewed. Patient to be monitored and followed by the diet flight readiness technician. * Anna Gomes DO - 02/25/2021 6:36 AM EDT Images from the original note were not included. Maternal Medicine Service Resident Progress Note 02/25/2021 6:36 AM 01/19/2021 Hospital Day: 38 Raymond Brownlee, 20 y.o. 30w2d Patient has been seen and examined. Patient doing well, no complaints. Still leaking small amount of clear fluid. Denies fevers/chills/abdominal pain. Positive movement Negative vaginal bleeding Positive LOF Negative Contractions Vitals: 02/24/21 1550 02/24/21 1944 02/24/21 2339 02/25/21 0537 BP: 97/66 98/63 91/60 (!) 90/59 Pulse: 107 85 74 70 Resp: 18 18 18 16 Temp: 97.5 F (36.4 C) 97.8 F (36.6 C) 98.2 F (36.8 C) 97.9 F (36.6 C) TempSrc: Temporal Temporal Temporal Temporal SpO2: 98% 99% 98% 97% Weight: Height: FHT: 130, moderate variability Accels: present Decels: absent Contractions: none Physical Exam: Gen: NAD HEENT: Normocephalic, Atraumatic Abd: soft, gravid, NTND, no rebound, no guarding. negative fundal tenderness Ext: No LE edema, no calf tenderness or swelling Medications: Current Facility-Administered Medications Medication Dose Route Frequency Provider Last Rate Last Admin calcium carbonate (TUMS) chewable tablet 500 mg 500 mg Oral TID PRN Hollie W Faby, DO 500 mg at 01/25/21 0010 famotidine (PEPCID) tablet 20 mg 20 mg Oral BID Hollie W Faby, DO 20 mg at 02/24/21 2113 0.9 % sodium chloride infusion 25 mL Intravenous PRN Urmila Wright, DO ondansetron (ZOFRAN-ODT) disintegrating tablet 4 mg 4 mg Oral Q8H PRN Urmila Wright, DO 4 mg at 02/21/21 1349 Or ondansetron (ZOFRAN) injection 4 mg 4 mg Intravenous Q6H PRN Urmila C Smerker, DO acetaminophen (TYLENOL) tablet 650 mg 650 mg Oral Q4H PRN Urmilayashira Ottoker, DO 650 mg at 02/20/21 1602 vitamin 27-1 MG tablet 1 tablet 1 tablet Oral Daily Urmila C Smerker, DO 1 tablet at 02/24/21 0957 docusate sodium (COLACE) capsule 100 mg 100 mg Oral BID PRN Urmila C Smerker, DO 100 mg at acyclovir (ZOVIRAX) capsule 400 mg 400 mg Oral TID Urmila C Smerker, DO 400 mg at 02/24/212112 Assessment/Plan: Raymond Brownlee is a 20 y.o. female 30w2d PPROM - Stable, afebrile - Continue expectant management HSV - Continue acyclovir IUP @ 30w2d - Dating by tri US - Cephalic on 02/21 - MonitorinhrTID - Diet:General - BMZ x2 on 01/18- Further plan pending d/w attending. Anna Gomes DO 02/25/2021, 6:36 AM Associated attestation - Rohit Stein MD - 02/25/2021 3:50 PM EDT I performed a history and physical examination on the patient and discussed the management with theresident physician. I reviewed and agree with the findings and plan as documented in their note today. 20 yr old at 30 2/7 GA with the following: PPROM no signs of chorio, continued inpatient expectant management s/p rBMZ as well and is a candidate for magnesium for neuroprotection if needed if GA <32 weeks GA HSV continued acyclovir Repeat BPP cephalic and JUAN of 1.7cm with BPP 01/18 continued close follow up of symptoms I spent 15 minutes in the visit today on the floor reviewing the chart, discussing the case with the residency staff and nursing Rohit Stein MD MD * Pat Hodges RN - 02/25/2021 6:12 AM EDT BLOOD DRAWN ON 2ND ATTEMPT, FROM LEFT AC AND SENT TO LAB.TOLERATED PROCEDURE WELL. * Rosemarie Barillas MD - 02/24/2021 6:05 AM EDT Images from the original note were not included. Maternal Medicine Service Resident Progress Note 02/24/2021 6:25 AM 01/19/2021 Hospital Day: 37 Raymond Brownlee, 20 y.o. 30w1d Patient has been seen and examined. Pt initially sleeping. She states that she feels well and has no concerns. She denies nausea, vomiting, fevers, chills, abdominal pain/tenderness and purulent discharge. Positive movement Negative vaginal bleeding Positive LOF Negative Contractions Vitals: 02/23/21 1744 02/23/21 2025 02/23/21 2346 02/24/21 0625 BP: 106/61 113/65 100/64 (!) 94/54 Pulse: 77 108 79 73 Resp: 16 16 16 16 Temp: 97.3 F (36.3 C) 97.7 F (36.5 C) 97.2 F (36.2 C) 97.7 F (36.5 C) TempSrc: Temporal Temporal Temporal Temporal SpO2: 97% 97% 98% 97% Weight: Height: FHT: 130, moderate variability Accels: present Decels: absent Contractions: none Physical Exam: Gen: NAD HEENT: Normocephalic, Atraumatic, EOMI, MMM Resp: no respiratory distress or increased work of breathing Card: RRR Abd: soft, gravid, NTND, no rebound, no guarding. negative fundal tenderness Ext: No LE edema, no calf tenderness or swelling Medications: Current Facility-Administered Medications Medication Dose Route Frequency Provider Last Rate Last Admin calcium carbonate (TUMS) chewable tablet 500 mg 500 mg Oral TID PRN Hollieyeny Hobbs, DO 500 mg at 01/25/21 0010 famotidine (PEPCID) tablet 20 mg 20 mg Oral BID Hollie W Faby, DO 20 mg at 02/23/21 2138 0.9 % sodium chloride infusion 25 mL Intravenous PRN Urmila C Smerker, DO ondansetron (ZOFRAN-ODT) disintegrating tablet 4 mg 4 mg Oral Q8H PRN Urmila C Smerker, DO 4 mg at 02/21/21 1349 Or ondansetron (ZOFRAN) injection 4 mg 4 mg Intravenous Q6H PRN Urmila C Smerker, DO acetaminophen (TYLENOL) tablet 650 mg 650 mg Oral Q4H PRN Urmila C Smerker, DO 650 mg at 02/20/21 1602 vitamin 27-1 MG tablet 1 tablet 1 tablet Oral Daily Urmila C Smerker, DO 1 tablet at 02/23/21 0919 docusate sodium (COLACE) capsule 100 mg 100 mg Oral BID PRN Urmila C Smerker, DO 100 mg at acyclovir (ZOVIRAX) capsule 400 mg 400 mg Oral TID Urmila C Smerker, DO 400 mg at 02/23/212136 Assessment/Plan: Raymond Brownlee is a 20 y.o. female 30w1d PPROM - stable, afebrile - no s/s of infection - continue expectant management HSV - continue acyclovir ppx IUP @ 30w1d - Dating by first trimester US - Cephalic on 02/21 - MonitorinhrTID - Diet:General - BMZ x2 on 01/18 and 01/19 Further plan pending d/w attending. Xiao Moran 02/24/2021 Agree with above documentation by MS4. Cat I FHT, pt with no complaints. VSS. Afebrile. Continue expectant management. Rosemarie Barillas MD 02/24/2021, 6:25 AM Associated attestation - Rohit Stein MD - 02/24/2021 11:30 AM EDT I performed a history and physical examination on the patient and discussed the management with theresident physician. I reviewed and agree with the findings and plan as documented in their note today. 20 yr old at 30 1/7 GA with the following: PPROM no signs of chorio, continued inpatient expectant management s/p rBMZ as well and is a candidate for magnesium for neuroprotection if needed if GA <32 weeks GA HSV continued acyclovir Repeat BPP today cephalic and JUAN of 1.7cm with BPP 01/18 continued close follow up of symptoms I spent 15 minutes in the visit today on the floor reviewing the chart, discussing the case with the residency staff and nursing Rohit Stein MD MD * Anna Gomes DO - 02/23/2021 6:01 AM EDT Images from the original note were not included. Maternal Medicine Service Resident Progress Note 02/23/2021 6:05 AM 01/19/2021 Hospital Day: 36 Raymond Brownlee, 20 y.o. 30w0d Patient has been seen and examined. Pt doing well this AM. Endorses feeling baby move as normal. Denies nausea, vomiting, fevers, chills and abdominal pain/tenderness. Positive movement Negative vaginal bleeding Positive LOF Negative Contractions Vitals: 02/22/21 1259 02/22/21 1609 02/22/216 02/22/21 2311 BP: 103/67 (!) 96/50 114/72 102/63 Pulse: 86 95 86 87 Resp: 18 18 16 16 Temp: 97.9 F (36.6 C) 97.7 F (36.5 C) 98.3 F (36.8 C) 97.1 F (36.2 C) TempSrc: Temporal Temporal Temporal Temporal SpO2: 99% 98% 96% 97% Weight: Height: FHT: 140, moderate variability Accels: present Decels: absent Contractions: none Physical Exam: Gen: NAD HEENT: Normocephalic, Atraumatic Resp: No respiratory distress or increased work of breathing Card: RRR Abd: soft, gravid, NTND, no rebound, no guarding. negative fundal tenderness Ext: No LE edema, no calf tenderness or swelling Medications: Current Facility-Administered Medications Medication Dose Route Frequency Provider Last Rate Last Admin calcium carbonate (TUMS) chewable tablet 500 mg 500 mg Oral TID PRN Hollie W Faby, DO 500 mg at 01/25/21 0010 famotidine (PEPCID) tablet 20 mg 20 mg Oral BID Hollie W Faby, DO 20 mg at 02/22/213 0.9 % sodium chloride infusion 25 mL Intravenous PRN Urmila C Smerker, DO ondansetron (ZOFRAN-ODT) disintegrating tablet 4 mg 4 mg Oral Q8H PRN Urmila C Smerker, DO 4 mg at 02/21/21 1349 Or ondansetron (ZOFRAN) injection 4 mg 4 mg Intravenous Q6H PRN Urmila C Smerker, DO acetaminophen (TYLENOL) tablet 650 mg 650 mg Oral Q4H PRN Urmila C Smerker, DO 650 mg at 02/20/21 1602 vitamin 27-1 MG tablet 1 tablet 1 tablet Oral Daily Urmila C Smerker, DO 1 tablet at 02/22/21 0929 docusate sodium (COLACE) capsule 100 mg 100 mg Oral BID PRN Urmila C Smerker, DO 100 mg at 049 acyclovir (ZOVIRAX) capsule 400 mg 400 mg Oral TID Urmila C Smerker, DO 400 mg at 02/22/212142 Assessment/Plan: Raymond Brownlee is a 20 y.o. female 30w0d PPROM - stable, afebrile - no s/s of infection - anhydramnios on BPP 02/21 - continue expectant management HSV - continue acyclovir ppx IUP @ 30w0d - Dating by first trimester US - Cephalic on 02/21 - MonitorinhrTID - Diet:General - BMZ x2 on 01/18 and 01/19 Further plan pending d/w attending. Xiao Moran 02/23/2021, 6:05 AM Above note written by M4, agree with assessment. Patient also seen and examined by myself. Patient denies any further green fluid, now clear and denies cramping or contractions. No complaints this AM. VSS, Afebrile. Continue expectant management. Associated attestation - Rohit Stein MD - 02/23/2021 11:27 AM EDT I performed a history and physical examination on the patient and discussed the management with theresident physician. I reviewed and agree with the findings and plan as documented in their note today. 20 yr old at 30 0/7 GA with the following: PPROM no signs of chorio, continued inpatient expectant management s/p rBMZ as well and is a candidate for magnesium for neuroprotection if needed HSV continued acyclovir Repeat BPP tomorrow given anhydramnios on last BPP I spent 15 minutes in the visit today on the floor reviewing the chart, discussing the case with the residency staff and nursing Rohit Stein MD MD * Beto Callahan, DO - 02/22/2021 6:16 AM EDT Images from the original note were not included. Maternal Medicine Service Resident Progress Note 02/22/2021 6:17 AM 01/19/2021 Hospital Day: 35 Raymond Brownlee, 20 y.o. 29w6d Patient has been seen and examined. No complaints this AM. Late yesterday afternoon had episode of nausea with abdominal pain that has since resolved. Has been kept on continuous monitoring all night. Denies fever/chills, abd pain, purulent discharge. Positive movement Negative vaginal bleeding Positive LOF Negative Contractions Vitals: 02/21/21 1601 02/21/21 1959 02/21/21 2332 02/22/21 0540 BP: 93/60 94/62 (!) 93/49 (!) 90/56 Pulse: 80 86 73 78 Resp: 16 18 16 16 Temp: 97.7 F (36.5 C) 97.8 F (36.6 C) 97.8 F (36.6 C) 96.8 F (36 C) TempSrc: Temporal Temporal Temporal SpO2: 96% 95% 96% 96% Weight: Height: FHT: 130, moderate variability Accels: present Decels: variable deceleration at 0430 Contractions: none Physical Exam: Gen: NAD HEENT: Normocephalic, Atraumatic Resp: No respiratory distress, no increased work of breathing Card: Regular rate Abd: soft, gravid, NTND, no rebound, no guarding. negative fundal tenderness Ext: No LE edema, no calf tenderness or swelling Medications: Current Facility-Administered Medications Medication Dose Route Frequency Provider Last Rate Last Admin betamethasone acetate-betamethasone sodium phosphate (CELESTONE) injection 12 mg 12 mg Intramuscular Q24H Anna Gomes, DO 12 mg at 02/21/21 1630 calcium carbonate (TUMS) chewable tablet 500 mg 500 mg Oral TID PRN Hollie W Faby, DO 500 mg at 01/25/21 0010 famotidine (PEPCID) tablet 20 mg 20 mg Oral BID Hollie W Faby, DO 20 mg at 02/21/212112 0.9 % sodium chloride infusion 25 mL Intravenous PRN Urmila Simental Smerker, DO ondansetron (ZOFRAN-ODT) disintegrating tablet 4 mg 4 mg Oral Q8H PRN Urmila C Smerker, DO 4 mg at 02/21/21 1349 Or ondansetron (ZOFRAN) injection 4 mg 4 mg Intravenous Q6H PRN Urmila C Smerker, DO acetaminophen (TYLENOL) tablet 650 mg 650 mg Oral Q4H PRN Urmila C Smerker, DO 650 mg at 02/20/21 1602 vitamin 27-1 MG tablet 1 tablet 1 tablet Oral Daily Urmila C Smerker, DO 1 tablet at 02/21/21 0901 docusate sodium (COLACE) capsule 100 mg 100 mg Oral BID PRN Urmila C Smerker, DO 100 mg at 9 acyclovir (ZOVIRAX) capsule 400 mg 400 mg Oral TID Urmila C Smerker, DO 400 mg at 02/21/212112 Assessment/Plan: Raymond Brownlee is a 20 y.o. female 29w6d PPROM - stable, afebrile - no signs/symptoms of infection - anhydramnios yesterday on BPP - Continue inpatient expectant management HSV - continue acyclovir PPx IUP @ 29w6d - Dating by 1st [facility] - Cephalic on 02/21 - MonitorinhrTID - Diet:General - BMZ x2 on 01/18 and 01/19 Further plan pending d/w attending. Beto Callahan DO 02/22/2021, 6:17 AM Associated attestation - Haily Lopez MD - 02/22/2021 11:48 AM EDT Maternal Medicine Attending Attestation: I have performed a history and physical examination on the patient and discussed the management with the residents physician. I reviewed and agree with the findings and plan as documented in the note. 20 y.o. at 29w6d with PPROM and oligohydramnios. The patient denies nausea, vomiting, vaginal bleeding, contractions, and/or abdominal pain. She also denies blurring of vision, visual disturbances, headaches, and /or epigastric pain. She reports the fetus to be active. Vitals: 02/21/21 1959 02/21/21 2332 02/22/21 0540 02/22/21 0752 BP: 94/62 (!) 93/49 (!) 90/56 101/62 Pulse: 86 73 78 78 Resp: 18 16 16 20 Temp: 97.8 F (36.6 C) 97.8 F (36.6 C) 96.8 F (36 C) 98.9 F (37.2 C) TempSrc: Temporal Temporal Temporal SpO2: 95% 96% 96% 96% Weight: Height: Plan: Expectant management Deliver if labor, bleeding, infections, abnormal heart tones, and/or at 34 weeks. I spent 15 minutes at the visit, with more than 50% of the total face to face time of the visit in counseling and coordination of care. Haily Lopez MD * Anna Gomes DO - 02/21/2021 4:40 PM EDT Late entry. Notified by RN of patient feeling nauseous and crampy after wheelchair ride. Patient says that as soon as she came back in from outside she felt like she needed to vomit. She is now complaining of lower abdominal cramping and pressure which is new for her. Patient has had 2 variable decels since being on monitor but otherwise overall Cat I with moderate variability and accels. SSE performed and visually unchanged, 0-1cm, fluid appears clear. Will give rBMZ and keep on CEFM. * BarryBeto, - 02/21/2021 6:01 AM EDT Images from the original note were not included. Maternal Medicine Service Resident Progress Note 02/21/2021 6:01 AM 01/19/2021 Hospital Day: 34 Raymond Brownlee, 20 y.o. 29w5d Patient has been seen and examined. No acute events overnight, no complaints this AM. Denies fever/chills, abd pain, purulent discharge. Positive movement Negative vaginal bleeding Positive LOF Negative Contractions Vitals: 02/20/21 1223 02/20/21 1600 02/20/21 1959 02/21/21 0100 BP: 109/65 103/69 101/69 Pulse: 97 87 101 Resp: 18 20 16 Temp: 97.9 F (36.6 C) 97.4 F (36.3 C) 98.5 F (36.9 C) 98.6 F (37 C) TempSrc: Temporal Temporal SpO2: 99% 95% 97% Weight: Height: FHT: 140, moderate variability Accels: present Decels: absent Contractions: none Physical Exam: Gen: NAD HEENT: Normocephalic, Atraumatic Resp: No respiratory distress, no increased work of breathing Card: Regular rate Abd: soft, gravid, NTND, no rebound, no guarding. negative fundal tenderness Ext: No LE edema, no calf tenderness or swelling Medications: Current Facility-Administered Medications Medication Dose Route Frequency Provider Last Rate Last Admin calcium carbonate (TUMS) chewable tablet 500 mg 500 mg Oral TID PRN Hollie Keanehl, DO 500 mg at 01/25/21 0010 famotidine (PEPCID) tablet 20 mg 20 mg Oral BID Hollie Rios Faby, DO 20 mg at 02/20/21 2211 0.9 % sodium chloride infusion 25 mL Intravenous PRN Urmila Wright DO ondansetron (ZOFRAN-ODT) disintegrating tablet 4 mg 4 mg Oral Q8H PRN Urmila C Smerker, DO 4 mg at 02/15/21 1021 Or ondansetron (ZOFRAN) injection 4 mg 4 mg Intravenous Q6H PRN Urmila C Smerker, DO acetaminophen (TYLENOL) tablet 650 mg 650 mg Oral Q4H PRN Urmila C Smerker, DO 650 mg at 02/20/21 1602 vitamin 27-1 MG tablet 1 tablet 1 tablet Oral Daily Urmila C Smerker, DO 1 tablet at 02/20/21 1116 docusate sodium (COLACE) capsule 100 mg 100 mg Oral BID PRN Urmila C Smerker, DO 100 mg at 049 acyclovir (ZOVIRAX) capsule 400 mg 400 mg Oral TID Urmila C Smerker, DO 400 mg at 02/20/21 2211 Assessment/Plan: Raymond Brownlee is a 20 y.o. female 29w5d PPROM - stable, afebrile - fluid is now clear fluid again - no signs/symptoms of infection - continue inpatient expectant management HSV - continue acyclovir PPx IUP @ 29w5d - Dating by 1st Tri US - Cephalic on 02/18 - MonitorinhrTID - Diet:General - BMZ x2 on 01/18-01/19 Further plan pending d/w attending. Beto Callahan DO 02/21/2021, 6:01 AM Associated attestation - Rohit Stein MD - 02/21/2021 3:31 PM EDT I performed a history and physical examination on the patient and discussed the management with theresident physician. I reviewed and agree with the findings and plan as documented in their note today. 20 yr old at 29 5/7 GA with the following: PPROM no signs of chorio, continued inpatient expectant management HSV continued acyclovir Anhydramnios today on ultrasound BPP 01/18 and reactive NST discussed precautions today I spent 15 minutes in the visit today on the floor reviewing the chart, discussing the case with the residency staff and nursing Rohit Stein MD MD * Erin Mejia DTR - 02/20/2021 1:09 PM EDT Nutrition update completed. Chart reviewed. Patient to be monitored and followed by the diet flight readiness technician. * Haily Lopez MD - 02/20/2021 6:13 AM EDT Images from the original note were not included. Maternal Medicine Service Resident Progress Note 02/20/2021 6:13 AM 01/19/2021 Hospital Day: 33 Raymond Brownlee, 20 y.o. 29w4d Patient has been seen and examined. No complaints this AM. Denies fevers, chills, contractions, discharge. Positive movement Negative vaginal bleeding Positive LOF Negative Contractions Vitals: 02/19/21 1520 02/19/21 2041 02/20/21 0115 02/20/21 0559 BP: 106/65 105/62 (!) 90/53 Pulse: 90 103 85 Resp: 18 16 16 Temp: 97.1 F (36.2 C) 98.5 F (36.9 C) 99.3 F (37.4 C) 98.6 F (37 C) TempSrc: Temporal Temporal Temporal SpO2: 97% 98% 97% Weight: Height: FHT: 130, moderate variability Accels: present Decels: absent Contractions: none Physical Exam: Gen: NAD HEENT: Normocephalic, Atraumatic, EOMI, MMM Resp: CTABL, no WRR Card: RRR S1S2 Abd: soft, gravid, NTND, no rebound, no guarding. negative fundal tenderness Ext: No LE edema, no calf tenderness or swelling Medications: Current Facility-Administered Medications Medication Dose Route Frequency Provider Last Rate Last Admin calcium carbonate (TUMS) chewable tablet 500 mg 500 mg Oral TID PRN Hollie W Faby, DO 500 mg at 01/25/21 0010 famotidine (PEPCID) tablet 20 mg 20 mg Oral BID Hollie W Faby, DO 20 mg at 02/19/21 2151 0.9 % sodium chloride infusion 25 mL Intravenous PRN Urmila C Smerker, DO ondansetron (ZOFRAN-ODT) disintegrating tablet 4 mg 4 mg Oral Q8H PRN Urmila C Smerker, DO 4 mg at 02/15/21 1021 Or ondansetron (ZOFRAN) injection 4 mg 4 mg Intravenous Q6H PRN Urmila C Smerker, DO acetaminophen (TYLENOL) tablet 650 mg 650 mg Oral Q4H PRN Urmila C Smerker, DO 650 mg at 02/15/21 1022 vitamin 27-1 MG tablet 1 tablet 1 tablet Oral Daily Urmila C Smerker, DO 1 tablet at 02/19/21 0923 docusate sodium (COLACE) capsule 100 mg 100 mg Oral BID PRN Urmila C Smerker, DO 100 mg at 049 acyclovir (ZOVIRAX) capsule 400 mg 400 mg Oral TID Urmila C Smerker, DO 400 mg at 02/19/212150 Assessment/Plan: Raymond Brownlee is a 20 y.o. female 29w4d PPROM - No changes overnight - Vaginal culture normal vaginal justin, final culture still pending - WBC 11.0 on 02/18 - VSS, remains afebrile - Low suspicion for intraamniotic infection at this time - FHT cat I HSV - Denies any outbreaks, continue valtrex IUP @ 29w4d - Dating by 1st tri US - Cephalic on 02/18 - MonitorinhrTID - Diet:General - BMZ x2 on 01/18- Further plan pending d/w attending. Joana Duvall MD 02/20/2021, 6:13 AM Maternal Medicine Attending Attestation: I have performed a history and physical examination on the patient and discussed the management with the residents physician. I reviewed and agree with the findings and plan as documented in the note. 20 y.o. at 29w4d with PPROM. The patient denies nausea, vomiting, vaginal bleeding, contractions, and/or abdominal pain. She also denies blurring of vision, visual disturbances, headaches, and /or epigastric pain. She reports the fetus to be active. Vitals: 02/20/21 0559 02/20/21 0745 02/20/21 0927 02/20/21 1223 BP: 108/72 109/65 Pulse: 103 97 Resp: 18 18 Temp: 98.6 F (37 C) 97.2 F (36.2 C) 97.9 F (36.6 C) TempSrc: Temporal Temporal SpO2: 97% 99% Weight: Height: Plan: Expectant management. I spent 15 minutes at the visit, with more than 50% of the total face to face time of the visit in counseling and coordination of care. Haily Lopez MD * Rosemarie Barillas MD - 02/19/2021 6:19 AM EDT Images from the original note were not included. Maternal Medicine Service Resident Progress Note 02/19/2021 6:19 AM 01/19/2021 Hospital Day: 32 [facility], 20 y.o. 29w3d Patient has been seen and examined. Pt had no complaints this AM. She denies fundal tenderness, F/C, denies any further discharge . Positive movement Negative vaginal bleeding Positive LOF Negative Contractions Vitals: 02/18/21 1944 02/18/21 2004 02/18/21 2340 02/19/21 0327 BP: 113/74 90/61 100/66 Pulse: 100 95 78 85 Resp: 18 16 16 Temp: 99.1 F (37.3 C) 97.5 F (36.4 C) 97.6 F (36.4 C) TempSrc: Temporal Temporal Temporal SpO2: 98% 95% 97% Weight: Height: FHT: 120, moderate variability Accels: present Decels: rare variable Contractions: none Physical Exam: Gen: NAD HEENT: Normocephalic, Atraumatic, EOMI, MMM Resp: CTABL, no WRR Card: RRR S1S2 Abd: soft, gravid, NTND, no rebound, no guarding. negative fundal tenderness Ext: No LE edema, no calf tenderness or swelling Medications: Current Facility-Administered Medications Medication Dose Route Frequency Provider Last Rate Last Admin calcium carbonate (TUMS) chewable tablet 500 mg 500 mg Oral TID PRN Hollie Hobbs, DO 500 mg at 01/25/21 0010 famotidine (PEPCID) tablet 20 mg 20 mg Oral BID Hollie W Faby, DO 20 mg at 02/18/212050 0.9 % sodium chloride infusion 25 mL Intravenous PRN Urmila C Smerker, DO ondansetron (ZOFRAN-ODT) disintegrating tablet 4 mg 4 mg Oral Q8H PRN Urmila C Smerker, DO 4 mg at 02/15/21 1021 Or ondansetron (ZOFRAN) injection 4 mg 4 mg Intravenous Q6H PRN Urmila C Smerker, DO acetaminophen (TYLENOL) tablet 650 mg 650 mg Oral Q4H PRN Urmila C Smerker, DO 650 mg at 02/15/21 1022 vitamin 27-1 MG tablet 1 tablet 1 tablet Oral Daily Urmila C Smerker, DO 1 tablet at 02/18/21 09 docusate sodium (COLACE) capsule 100 mg 100 mg Oral BID PRN Urmila C Smerker, DO 100 mg at acyclovir (ZOVIRAX) capsule 400 mg 400 mg Oral TID Urmila C Smerker, DO 400 mg at 02/18/212050 Assessment/Plan: Raymond Brownlee is a 20 y.o. female 29w3d PPROM - no further discharge after yesterday - vaginal culture gram stain with normal vaginal justin, final culture pending - WBC of 11.0 - pt remains afebrile - no maternal or tachycardia - low suspicion for IAI at this time - BPP on 02/18, 01/18 due to JUAN of 4, otherwise reassuring - Cat I FHT HSV - continue acyclovir IUP @ 29w3d - Dating by 1st tri US - Cephalic on 02/18 - Monitoring:CEFM - Diet:General - BMZ x2 on 01/18- Further plan pending d/w attending. Rosemarie Barillas MD 02/19/2021, 6:19 AM Associated attestation - Haily Lopez MD - 02/19/2021 3:33 PM EDT Maternal Medicine Attending Attestation: I have performed a history and physical examination on the patient and discussed the management with the residents physician. I reviewed and agree with the findings and plan as documented in the note. 20 y.o. at 29w3d with PPROM Vitals: 02/19/21 0327 02/19/21 0827 02/19/21 1247 02/19/21 1520 BP: 100/66 94/61 103/68 106/65 Pulse: 85 89 110 90 Resp: 16 18 20 18 Temp: 97.6 F (36.4 C) 97.8 F (36.6 C) 97.6 F (36.4 C) 97.1 F (36.2 C) TempSrc: Temporal Temporal Temporal Temporal SpO2: 97% 96% 97% 97% Weight: Height: Plan: Expectant management. I spent 15 minutes at the visit, with more than 50% of the total face to face time of the visit in counseling and coordination of care. Haily Lopez MD * Rosemarie Barillas MD - 02/18/2021 6:03 PM EDT Called by RN regarding pt having light green discharge. Assessed pt at bedside. Pt is feeling well, denies any cramping, F/C, DFM, VB. She had BPP today and have been feeling her normal. Pad with light green specs seen. SSE with no active leaking from the cervical os, no green discharge seen. Some milky watery discharge in the vaginal vault. Cervix fingertip dilated visually, previously closed. Pt overall comfortable, low suspicion for labor at this time. Vtx on BSUS. Cat I on FHT. No ctx on toco. VSS, afebrile Vitals: 02/18/21 1638 BP: 97/61 Pulse: 79 Resp: 20 Temp: 98.1 F (36.7 C) SpO2: 96% No Fundal tenderness. Pt overall stable at this time. Low suspicion for labor or IAI given no tachycardia or maternal tachycardia, no foul smelling discharge and no subjective fever. Discussed with Dr. Lopez, Green discharge could be due to blood, cervical mucous, meconium. Will defer rBMZ and magnesium at this time given low suspicion. Will get CBC and vaginal culture. If pt develops tachycardia, maternal tachycardia, fever, leukocytosis; low threshold to startmagnesium and give rBMZ. * Beto Callahan, DO - 02/18/2021 6:06 AM EDT Images from the original note were not included. Maternal Medicine Service Resident Progress Note 02/18/2021 6:07 AM 01/19/2021 Hospital Day: 31 Raymond Brownlee, 20 y.o. 29w2d Patient has been seen and examined. No acute events overnight, no complaints this AM. Denies fever/chills, abd pain, purulent fluid. Positive movement Negative vaginal bleeding Positive LOF Negative Contractions Vitals: 02/17/21199902/17/21201402/17/21202902/17/212044 BP: (!) 99/51 Pulse: 118 100 104 99 Resp: 18 Temp: 98.5 F (36.9 C) TempSrc: Oral SpO2: Weight: Height: FHT: 130, moderate variability Accels: present Decels: absent Contractions: none Physical Exam: Gen: NAD HEENT: Normocephalic, Atraumatic Resp: No respiratory distress, no increased work of breathing Card: normal rate Abd: soft, gravid, NTND, no rebound, no guarding. negative fundal tenderness Ext: No LE edema, no calf tenderness or swelling Medications: Current Facility-Administered Medications Medication Dose Route Frequency Provider Last Rate Last Admin calcium carbonate (TUMS) chewable tablet 500 mg 500 mg Oral TID PRN Hollie W Faby, DO 500 mg at 01/25/21 0010 famotidine (PEPCID) tablet 20 mg 20 mg Oral BID Hollie W Faby, DO 20 mg at 02/17/21 2100 0.9 % sodium chloride infusion 25 mL Intravenous PRN Urmila Wright DO ondansetron (ZOFRAN-ODT) disintegrating tablet 4 mg 4 mg Oral Q8H PRN Urmila Wright, DO 4 mg at 02/15/21 1021 Or ondansetron (ZOFRAN) injection 4 mg 4 mg Intravenous Q6H PRN Urmila C Smerker, DO acetaminophen (TYLENOL) tablet 650 mg 650 mg Oral Q4H PRN Urmila C Smerker, DO 650 mg at 02/15/21 1022 vitamin 27-1 MG tablet 1 tablet 1 tablet Oral Daily Urmila C Smerker, DO 1 tablet at 02/17/21 0859 docusate sodium (COLACE) capsule 100 mg 100 mg Oral BID PRN Urmila C Smerker, DO 100 mg at 9 acyclovir (ZOVIRAX) capsule 400 mg 400 mg Oral TID Urmila C Smerker, DO 400 mg at 02/17/212100 Assessment/Plan: Raymond Brownlee is a 20 y.o. female 29w2d PPROM - stable, VSS - continues to leak clear fluid - no sign/symptoms of infection - continue inpatient expectant management Hx HSV - on acyclovir PPx IUP @ 29w2d - Dating by Tri US - Cephalic on 02/15 - MonitorinhrTID - Diet:General - BMZ x2 on 01/18, 01/19 Further plan pending d/w attending. Beto Callahan DO 02/18/2021, 6:07 AM Associated attestation - Haily Lopez MD - 02/18/2021 12:20 PM EDT Maternal Medicine Attending Attestation: I have performed a history and physical examination on the patient and discussed the management with the residents physician. I reviewed and agree with the findings and plan as documented in the note. 20 y.o. at 29w2d with PPROM. Vitals: 02/17/21 2030 02/17/21 2045 02/18/21 0800 02/18/21 1201 BP: 91/60 (!) 101/57 Pulse: 104 99 100 93 Resp: 16 16 Temp: 97.3 F (36.3 C) 97.2 F (36.2 C) TempSrc: Temporal Temporal SpO2: 98% 97% Weight: Height: Plan: Continue expectant management. I spent 15 minutes at the visit, with more than 50% of the total face to face time of the visit in counseling and coordination of care. Haily Lopez MD * Beto Callahan, DO - 02/17/2021 6:03 AM EDT Images from the original note were not included. Maternal Medicine Service Resident Progress Note 02/17/2021 6:05 AM 01/19/2021 Hospital Day: 30 Raymond Brownlee, 20 y.o. 29w1d Patient has been seen and examined. No complaints this AM, no acute events overnight. Denies fever/chills, Abd pain or foul smelling discharge. Positive movement Negative vaginal bleeding Positive LOF Negative Contractions Vitals: 02/16/21 2029 02/16/21 2034 02/16/21 2324 02/17/21 0430 BP: (!) 99/58 (!) 102/59 Pulse: 86 90 78 101 Resp: 18 18 Temp: 98.1 F (36.7 C) 97.9 F (36.6 C) TempSrc: Temporal SpO2: 97% 100% Weight: Height: FHT: 130, moderate variability Accels: present Decels: absent Contractions: none Physical Exam: Gen: NAD HEENT: Normocephalic, Atraumatic Resp: No increased work of breathing, no respiratory distress Card: regular rate Abd: soft, gravid, NTND, no rebound, no guarding. negative fundal tenderness Ext: No LE edema, no calf tenderness or swelling Medications: Current Facility-Administered Medications Medication Dose Route Frequency Provider Last Rate Last Admin calcium carbonate (TUMS) chewable tablet 500 mg 500 mg Oral TID PRN Hollie W Faby, DO 500 mg at 01/25/21 0010 famotidine (PEPCID) tablet 20 mg 20 mg Oral BID Hollie W Faby, DO 20 mg at 02/16/212040 0.9 % sodium chloride infusion 25 mL Intravenous PRN Urmila Wright DO ondansetron (ZOFRAN-ODT) disintegrating tablet 4 mg 4 mg Oral Q8H PRN Urmila Simental Smerker, DO 4 mg at 02/15/21 1021 Or ondansetron (ZOFRAN) injection 4 mg 4 mg Intravenous Q6H PRN Urmila C Smerker, DO acetaminophen (TYLENOL) tablet 650 mg 650 mg Oral Q4H PRN Urmila C Smerker, DO 650 mg at 02/15/21 1022 vitamin 27-1 MG tablet 1 tablet 1 tablet Oral Daily Urmila C Smerker, DO 1 tablet at 02/16/21 1049 docusate sodium (COLACE) capsule 100 mg 100 mg Oral BID PRN Urmila C Smerker, DO 100 mg at acyclovir (ZOVIRAX) capsule 400 mg 400 mg Oral TID Urmila C Smerker, DO 400 mg at 02/16/212040 Assessment/Plan: Raymond Brownlee is a 20 y.o. female 29w1d PPROM - stable, VSS - continued leaking of clear fluid - no signs/symptoms of infection - continue inpatient expectant management HSV - continue acyclovir PPx IUP @ 29w1d - Dating by 1st Tri US - Cephalic on 02/15 - MonitorinhrTID - Diet:General - BMZ x2 on 01/18, 01/19 Further plan pending d/w attending. Beto Callahan DO 02/17/2021, 6:05 AM Associated attestation - Haily Lopez MD - 02/17/2021 2:35 PM EDT Maternal Medicine Attending Attestation: I have performed a history and physical examination on the patient and discussed the management with the residents physician. I reviewed and agree with the findings and plan as documented in the note. 20 y.o. at 29w1d with PPROM Vitals: 02/16/21 2324 02/17/21 0430 02/17/21 0737 02/17/21 1131 BP: (!) 99/58 (!) 102/59 (!) 88/52 103/64 Pulse: 78 101 82 85 Resp: 18 18 16 16 Temp: 98.1 F (36.7 C) 97.9 F (36.6 C) 97.4 F (36.3 C) 97.2 F (36.2 C) TempSrc: Temporal Temporal Temporal SpO2: 97% 100% 98% 97% Weight: Height: Plan: Inpatient expectant management I spent 15 minutes at the visit, with more than 50% of the total face to face time of the visit in counseling and coordination of care. Haily Lopez MD * Rosemarie Barillas MD - 02/16/2021 6:07 AM EDT Images from the original note were not included. Maternal Medicine Service Resident Progress Note 02/16/2021 6:08 AM 01/19/2021 Hospital Day: Raymond Brownlee, 20 y.o. 29w0d Patient has been seen and examined. Pt has no chief complaints. She denies F/C, overall feels well.Continues to leak clear fluid Positive movement Negative vaginal bleeding Positive LOF Negative Contractions Vitals: 02/15/21 0753 02/15/21 1310 02/15/21 1609 02/15/21 1924 BP: 97/62 (!) 107/56 98/66 105/72 Pulse: 91 95 93 77 Resp: 18 16 18 16 Temp: 98 F (36.7 C) 99.1 F (37.3 C) 96.1 F (35.6 C) 97.2 F (36.2 C) TempSrc: Temporal Temporal Temporal Temporal SpO2: 96% 97% 97% 97% Weight: 178 lb 14.4 oz (81.1 kg) Height: FHT: 130, moderate variability Accels: present Decels: absent Contractions: none Physical Exam: Gen: NAD HEENT: Normocephalic, Atraumatic Resp: no increase work of breathing Card: RRR S1S2 Abd: soft, gravid, NTND, no rebound, no guarding. negative fundal tenderness Ext: No LE edema, no calf tenderness or swelling Medications: Current Facility-Administered Medications Medication Dose Route Frequency Provider Last Rate Last Admin calcium carbonate (TUMS) chewable tablet 500 mg 500 mg Oral TID PRN Hollie Hobbs DO 500 mg at 01/25/21 0010 famotidine (PEPCID) tablet 20 mg 20 mg Oral BID Hollie Hobbs, DO 20 mg at 02/15/212135 0.9 % sodium chloride infusion 25 mL Intravenous PRN Urmila C Smerker, DO ondansetron (ZOFRAN-ODT) disintegrating tablet 4 mg 4 mg Oral Q8H PRN Urmila C Smerker, DO 4 mg at 02/15/21 1021 Or ondansetron (ZOFRAN) injection 4 mg 4 mg Intravenous Q6H PRN Urmila C Smerker, DO acetaminophen (TYLENOL) tablet 650 mg 650 mg Oral Q4H PRN Urmila C Smerker, DO 650 mg at 02/15/21 1022 vitamin 27-1 MG tablet 1 tablet 1 tablet Oral Daily Urmila C Smerker, DO 1 tablet at 02/15/21 0934 docusate sodium (COLACE) capsule 100 mg 100 mg Oral BID PRN Urmila C Smerker, DO 100 mg at acyclovir (ZOVIRAX) capsule 400 mg 400 mg Oral TID Urmila C Smerker, DO 400 mg at 02/15/212135 Assessment/Plan: Raymond Brownlee is a 20 y.o. female 29w0d PPROM - no signs of infection, no fundal tenderness - continue inpatient expectant mangement - BPP 03/20, JUAN 5.4 on 02/15 HSV - continue acyclovir IUP @ 29w0d - Dating by 1st trimester US - Cephalic on 02/15 - MonitorinhrTID - Diet:General - BMZ x2 on 01/18- Further plan pending d/w attending. Rosemarie Barillsa MD 02/16/2021, 6:08 AM Associated attestation - Francesca López DO - 02/16/2021 5:17 PM EDT Attending Supervising Physician's Attestation Statement I performed a history and physical examination on the patient and discussed the management with theresident physician. I reviewed and agree with the findings and plan as documented in the note. Stable PPROM. Maternal and status reassuring. No additional complications at this time. Plan inpt management with delivery at 34 week or sooner in indicated. I spent 15 minutes in the visit, with more than 50% of the total [id number] time of the visit in counseling/coordination of care. * Erin Mejia DTR - 02/15/2021 10:03 AM EDT Nutrition update completed. Chart reviewed. Patient to be monitored and followed by the diet flight readiness technician. * Beto Callahan DO - 02/15/2021 6:07 AM EDT Images from the original note were not included. Maternal Medicine Service Resident Progress Note 02/15/2021 6:07 AM 01/19/2021 Hospital Day: 28 Raymond Brownlee, 20 y.o. 28w6d Patient has been seen and examined. No complaints this AM, no acute events overnight. Denies fever/chills, abd pain, purulent vaginal discharge. Positive movement Negative vaginal bleeding Positive LOF Negative Contractions Vitals: 02/14/21 1034 02/14/21 1617 02/14/21200202/15/21 0034 BP: 100/68 107/70 101/62 Pulse: 83 95 105 78 Resp: 16 16 18 Temp: 97.4 F (36.3 C) 97.9 F (36.6 C) 99.1 F (37.3 C) TempSrc: Temporal Temporal Temporal SpO2: 98% 97% 97% Weight: Height: FHT: 130, moderate variability Accels: present Decels: absent Contractions: none Physical Exam: Gen: NAD HEENT: Normocephalic, Atraumatic Resp: no increased work of breathing, no respiratory distress Card: regular rate Abd: soft, gravid, NTND, no rebound, no guarding. negative fundal tenderness Ext: No LE edema, no calf tenderness or swelling Medications: Current Facility-Administered Medications Medication Dose Route Frequency Provider Last Rate Last Admin calcium carbonate (TUMS) chewable tablet 500 mg 500 mg Oral TID PRN Hollie W Faby, DO 500 mg at 01/25/21 0010 famotidine (PEPCID) tablet 20 mg 20 mg Oral BID Hollie Rios Faby, DO 20 mg at 02/14/212107 0.9 % sodium chloride infusion 25 mL Intravenous PRN Urmila Simental Smerker, DO ondansetron (ZOFRAN-ODT) disintegrating tablet 4 mg 4 mg Oral Q8H PRN Urmila C Smerker, DO Or ondansetron (ZOFRAN) injection 4 mg 4 mg Intravenous Q6H PRN Urmila C Smerker, DO acetaminophen (TYLENOL) tablet 650 mg 650 mg Oral Q4H PRN Urmila C Smerker, DO vitamin 27-1 MG tablet 1 tablet 1 tablet Oral Daily Urmila C Smerker, DO 1 tablet at 02/14/21 103 docusate sodium (COLACE) capsule 100 mg 100 mg Oral BID PRN Urmila C Smerker, DO 100 mg at 0 acyclovir (ZOVIRAX) capsule 400 mg 400 mg Oral TID Urmila C Smerker, DO 400 mg at 02/14/212107 Assessment/Plan: Raymond Brownlee is a 20 y.o. female 28w6d PPROM - stable, continues to leak clear fluid - no signs/symptoms of infection - continue inpatient expectant management HSV - continue acyclovir PPx IUP @ 28w6d - Dating by Tri US - Cephalic on - MonitorinhrTID - Diet:General - BMZ x2 on 01/18, 01/19 - BPP today Further plan pending d/w attending. Beto Callahan DO 02/15/2021, 6:07 AM Associated attestation - Francesca López DO - 02/15/2021 5:44 PM EDT Attending Supervising Physician's Attestation Statement I performed a history and physical examination on the patient and discussed the management with theresident physician. I reviewed and agree with the findings and plan as documented in the note. Stable PPROM, no complaints or concerns. Physical exam reassuring. FHR pattern reassuring. Continueinpt management. I spent 15 minutes in the visit, with more than 50% of the total [id number] time of the visit in counseling/coordination of care. * Beto Callahan DO - 02/14/2021 6:00 AM EDT Images from the original note were not included. Maternal Medicine Service Resident Progress Note 02/14/2021 6:32 AM 01/19/2021 Hospital Day: 27 Raymond Brownlee, 20 y.o. 28w5d Patient has been seen and examined. No complaints this AM, no acute events overnight. Denies fever/chills, abd pain. Positive movement Negative vaginal bleeding Positive LOF Negative Contractions Vitals: 02/13/21 1842 02/13/21 1950 02/14/21 0033 02/14/21 0618 BP: 97/64 101/68 99/62 (!) 93/58 Pulse: 85 86 71 Resp: 16 18 16 16 Temp: 98.6 F (37 C) 97.4 F (36.3 C) 98.5 F (36.9 C) 98.2 F (36.8 C) TempSrc: Oral Temporal Temporal Temporal SpO2: 96% 98% 96% 98% Weight: Height: FHT: 130, moderate variability Accels: present Decels: absent Contractions: none Physical Exam: Gen: NAD HEENT: Normocephalic, Atraumatic, EOMI, MMM Resp: CTABL, no WRR Card: RRR S1S2 Abd: soft, gravid, NTND, no rebound, no guarding. negative fundal tenderness Ext: No LE edema, no calf tenderness or swelling Medications: Current Facility-Administered Medications Medication Dose Route Frequency Provider Last Rate Last Admin calcium carbonate (TUMS) chewable tablet 500 mg 500 mg Oral TID PRN Hollie W Faby, DO 500 mg at 01/25/21 0010 famotidine (PEPCID) tablet 20 mg 20 mg Oral BID Hollie W Faby, DO 20 mg at 02/13/212 0.9 % sodium chloride infusion 25 mL Intravenous PRN Urmila Wright DO ondansetron (ZOFRAN-ODT) disintegrating tablet 4 mg 4 mg Oral Q8H PRN Urmila C Smdidierker, DO Or ondansetron (ZOFRAN) injection 4 mg 4 mg Intravenous Q6H PRN Urmila C Smerker, DO acetaminophen (TYLENOL) tablet 650 mg 650 mg Oral Q4H PRN Urmila C Smerker, DO vitamin 27-1 MG tablet 1 tablet 1 tablet Oral Daily Urmila C Smerker, DO 1 tablet at 02/13/21 1002 docusate sodium (COLACE) capsule 100 mg 100 mg Oral BID PRN Urmila C Smerker, DO 100 mg at acyclovir (ZOVIRAX) capsule 400 mg 400 mg Oral TID Urmila C Smerker, DO 400 mg at 02/13/212121 Assessment/Plan: Raymond Brownlee is a 20 y.o. female 28w5d PPROM - stable - no S/S of infection - continue expectant management HSV - continue Acyclovir PPx IUP @ 28w5d - Dating by 1st Tri US - Cephalic on 02/07 - MonitorinhrTID - Diet:General - BMZ x2 on 01/18-01/19 Further plan pending d/w attending. Beto Callahan DO 02/14/2021, 6:32 AM Associated attestation - Haily Lopez MD - 02/14/2021 3:26 PM EDT Maternal Medicine Attending Attestation: I have performed a history and physical examination on the patient and discussed the management with the residents physician. I reviewed and agree with the findings and plan as documented in the note. 20 y.o. at 28w5d with PPROM. The patient denies nausea, vomiting, vaginal bleeding, contractions, and/or abdominal pain. She also denies blurring of vision, visual disturbances, headaches, and /or epigastric pain. She reports the fetus to be active. Vitals: 02/14/21 1019 02/14/21 1024 02/14/21 1030 02/14/21 1034 BP: Pulse: 101 80 89 83 Resp: Temp: TempSrc: SpO2: Weight: Height: Plan: Expectant management. I spent 15 minutes at the visit, with more than 50% of the total face to face time of the visit in counseling and coordination of care. Haily Lopez MD * Enriqueta Johnson, DO - 02/13/2021 6:36 AM EDT Images from the original note were not included. Maternal Medicine Service Resident Progress Note 02/13/2021 6:36 AM 01/19/2021 Hospital Day: 26 Raymond Brownlee, 20 y.o. 28w4d Patient has been seen and examined. Pt complains of ongoing leaking, but otherwise doing well . Positive movement Negative vaginal bleeding Positive LOF Negative Contractions Vitals: 02/12/21 1258 02/12/21 1926 02/12/21 2301 02/13/21 0547 BP: (!) 91/58 103/67 99/62 (!) 99/49 Pulse: 103 81 107 76 Resp: 18 18 18 16 Temp: 99.8 F (37.7 C) 98 F (36.7 C) 97.3 F (36.3 C) 98.9 F (37.2 C) TempSrc: Temporal Temporal Temporal Temporal SpO2: 96% 97% 98% 97% Weight: Height: FHT: 120, moderate variability Accels: present Decels: absent Contractions: irregular, rare contraction on toco Physical Exam: Gen: NAD HEENT: Normocephalic, Atraumatic, EOMI, MMM Resp: CTABL, no WRR Card: RRR S1S2 Abd: soft, gravid, NTND, no rebound, no guarding. negative fundal tenderness Ext: No LE edema, no calf tenderness or swelling Medications: Current Facility-Administered Medications Medication Dose Route Frequency Provider Last Rate Last Admin calcium carbonate (TUMS) chewable tablet 500 mg 500 mg Oral TID PRN Hollie W Faby, DO 500 mg at 01/25/21 0010 famotidine (PEPCID) tablet 20 mg 20 mg Oral BID Hollie W Faby, DO 20 mg at 02/12/212112 0.9 % sodium chloride infusion 25 mL Intravenous PRN Urmila C Smerker, DO ondansetron (ZOFRAN-ODT) disintegrating tablet 4 mg 4 mg Oral Q8H PRN Urmila C Smerker, DO Or ondansetron (ZOFRAN) injection 4 mg 4 mg Intravenous Q6H PRN Urmila C Smerker, DO acetaminophen (TYLENOL) tablet 650 mg 650 mg Oral Q4H PRN Urmila C Smerker, DO vitamin 27-1 MG tablet 1 tablet 1 tablet Oral Daily Urmila C Smerker, DO 1 tablet at 02/12/21909 docusate sodium (COLACE) capsule 100 mg 100 mg Oral BID PRN Urmila C Smerker, DO 100 mg at acyclovir (ZOVIRAX) capsule 400 mg 400 mg Oral TID Urmila C Smerker, DO 400 mg at 02/12/212111 Assessment/Plan: Raymond Brownlee is a 20 y.o. female 28w4d PPROM - pt reports ongoing leaking, but otherwise stable - vital signs stable, she is afebrile - JUAN on 02/10 2 cm - continue inpatient management HSV - continue acyclovir ppx IUP @ 28w3d - Dating by 1st Tri US - Cephalic on 02/07 - MonitorinhrTID - Diet:General - BMZ x2 on 01/18-01/19 Further plan pending d/w attending. Enriqueta Johnson DO 02/13/2021, 6:36 AM Associated attestation - Haily Lopez MD - 02/13/2021 1:49 PM EDT Maternal Medicine Attending Attestation: I have performed a history and physical examination on the patient and discussed the management with the residents physician. I reviewed and agree with the findings and plan as documented in the note. 20 y.o. at 28w4d with PPROM Raymond is here for evaluation regarding PPROM*. The patient denies nausea, vomiting, vaginal bleeding, contractions, and/or abdominal pain. She also denies blurring of vision, visual disturbances, headaches, and /or epigastric pain. She reports the fetus to be active. Vitals: 02/12/21 2301 02/13/21 0547 02/13/21 1000 02/13/21 1015 BP: 99/62 (!) 99/49 (!) 96/57 Pulse: 107 76 97 102 Resp: 18 16 16 Temp: 97.3 F (36.3 C) 98.9 F (37.2 C) 98.5 F (36.9 C) TempSrc: Temporal Temporal Oral SpO2: 98% 97% 99% Weight: Height: Plan: Continue expectant management Deliver at 34 weeks or earlier I spent 15 minutes at the visit, with more than 50% of the total face to face time of the visit in counseling and coordination of care. Haily Lopez MD * José Miguel Pace, - 02/12/2021 6:17 AM EDT Images from the original note were not included. Maternal Medicine Service Resident Progress Note 02/12/2021 4:19 AM 01/19/2021 Hospital Day: 25 [facility], 20 y.o. 28w3d Patient has been seen and examined. Patient had no complaints this am, denies Fever chills abd pain. Positive movement Negative vaginal bleeding Positive LOF Negative Contractions Vitals: 02/11/21 1153 02/11/21 1520 02/11/21 2019 02/11/21 2333 BP: 99/64 107/65 105/71 98/60 Pulse: 96 74 87 70 Resp: 16 16 16 16 Temp: 97.9 F (36.6 C) 97.4 F (36.3 C) 98.5 F (36.9 C) 98.3 F (36.8 C) TempSrc: Temporal Temporal Temporal Temporal SpO2: 97% 97% 98% 95% Weight: Height: FHT: 130, moderate variability Accels: present Decels: isolated variable noted, Otherwise reassuring with moderate variability and spontaneous accelerations. Contractions: none Physical Exam: Gen: NAD HEENT: Normocephalic, Atraumatic, EOMI, MMM Resp: CTABL, no WRR Card: RRR S1S2 Abd: soft, gravid, NTND, no rebound, no guarding. negative fundal tenderness Ext: No LE edema, no calf tenderness or swelling Medications: Current Facility-Administered Medications Medication Dose Route Frequency Provider Last Rate Last Admin calcium carbonate (TUMS) chewable tablet 500 mg 500 mg Oral TID PRN Hollie W Faby, DO 500 mg at 01/25/21 0010 famotidine (PEPCID) tablet 20 mg 20 mg Oral BID Hollie W Faby, DO 20 mg at 02/11/212158 0.9 % sodium chloride infusion 25 mL Intravenous PRN Urmila Simental Smerker, DO ondansetron (ZOFRAN-ODT) disintegrating tablet 4 mg 4 mg Oral Q8H PRN Urmila C Smerker, DO Or ondansetron (ZOFRAN) injection 4 mg 4 mg Intravenous Q6H PRN Urmila C Smerker, DO acetaminophen (TYLENOL) tablet 650 mg 650 mg Oral Q4H PRN Urmila C Smerker, DO vitamin 27-1 MG tablet 1 tablet 1 tablet Oral Daily Urmila Ottoker, DO 1 tablet at 02/11/21 1009 docusate sodium (COLACE) capsule 100 mg 100 mg Oral BID PRN Urmila C Smerker, DO 100 mg at acyclovir (ZOVIRAX) capsule 400 mg 400 mg Oral TID Urmila C Smerker, DO 400 mg at 02/11/212158 Assessment/Plan: Raymond Brownlee is a 20 y.o. female 28w3d PPROM - Stable, AFVSS - JUAN on 02/10 2 cm - continue inpatient management HSV - continue acyclovir Ppx IUP @ 28w3d - Dating by 1st Tri US - Cephalic on 02/07 - MonitorinhrTID - Diet:General - BMZ x2 on 01/18, 01/19 Further plan pending d/w attending. José Miguel Pace DO 02/12/2021, 4:19 AM Associated attestation - Haily Lopez MD - 02/12/2021 4:23 PM EDT Maternal Medicine Attending Attestation: I have performed a history and physical examination on the patient and discussed the management with the residents physician. I reviewed and agree with the findings and plan as documented in the note. 20 y.o. at 28w3d with PPROM The patient denies nausea, vomiting, vaginal bleeding, and/or abdominal pain. She also denies blurring of vision, visual disturbances, headaches, and /or epigastric pain. She reports the fetus to be active. Vitals: 02/11/21 2333 02/12/21 0625 02/12/21 0753 02/12/21 1258 BP: 98/60 (!) 89/55 95/62 (!) 91/58 Pulse: 70 77 103 103 Resp: 16 16 18 18 Temp: 98.3 F (36.8 C) 99.4 F (37.4 C) 99.5 F (37.5 C) 99.8 F (37.7 C) TempSrc: Temporal Temporal Temporal Temporal SpO2: 95% 97% 97% 96% Weight: Height: Plan: Expectant management I spent 15 minutes at the visit, with more than 50% of the total face to face time of the visit in counseling and coordination of care. Haily Lopez MD * Beto Callahan, - 02/11/2021 6:03 AM EDT Images from the original note were not included. Maternal Medicine Service Resident Progress Note 02/11/2021 6:04 AM 01/19/2021 Hospital Day: 24 Raymond Brownlee, 20 y.o. 28w2d Patient has been seen and examined. No complaints this AM, no acute events ON. Denies fever/chills,abd pain. Positive movement Negative vaginal bleeding Positive LOF Negative Contractions Vitals: 02/10/21 1535 02/10/21 2003 02/10/21 2316 02/11/21 0548 BP: (!) 94/56 95/64 (!) 98/59 (!) 89/54 Pulse: 88 105 82 103 Resp: 20 16 16 16 Temp: 97.9 F (36.6 C) 98 F (36.7 C) 96.9 F (36.1 C) 98.1 F (36.7 C) TempSrc: Temporal Temporal Temporal Temporal SpO2: 96% 98% 97% 98% Weight: Height: FHT: 130, moderate variability Accels: present Decels: absent Contractions: none Physical Exam: Gen: NAD HEENT: Normocephalic, Atraumatic Resp: No respiratory distress, no increased work of breathing Card: Regular rate Abd: soft, gravid, NTND, no rebound, no guarding. negative fundal tenderness Ext: No LE edema, no calf tenderness or swelling Medications: Current Facility-Administered Medications Medication Dose Route Frequency Provider Last Rate Last Admin calcium carbonate (TUMS) chewable tablet 500 mg 500 mg Oral TID PRN Hollie W Faby, DO 500 mg at 01/25/21 0010 famotidine (PEPCID) tablet 20 mg 20 mg Oral BID Hollie W Faby, DO 20 mg at 02/10/212141 0.9 % sodium chloride infusion 25 mL Intravenous PRN Urmila Ottoker, DO ondansetron (ZOFRAN-ODT) disintegrating tablet 4 mg 4 mg Oral Q8H PRN Urmila Ottoker, DO Or ondansetron (ZOFRAN) injection 4 mg 4 mg Intravenous Q6H PRN Urmila Simental Smerker, DO acetaminophen (TYLENOL) tablet 650 mg 650 mg Oral Q4H PRN Urmila Simental Smerker, DO vitamin 27-1 MG tablet 1 tablet 1 tablet Oral Daily Urmila C Smerker, DO 1 tablet at 02/10/21 0945 docusate sodium (COLACE) capsule 100 mg 100 mg Oral BID PRN Urmila Simental Smerker, DO 100 mg at acyclovir (ZOVIRAX) capsule 400 mg 400 mg Oral TID Urmila C Smerker, DO 400 mg at 02/10/212141 Assessment/Plan: Raymond Brownlee is a 20 y.o. female 28w2d PPROM - stable, no S/S infection - fluid remains clear - JUAN on US 02/10 was 2cm - continue inpatient observation HSV - continue acyclovir PPx IUP @ 28w2d - Dating by US - Cephalic on 02/07 - MonitorinhrTID - Diet:General - BMZ x2 on 01/18, 01/19 - Growth AGA 02/10 with EFW 1076g, 2 lb 6 oz, 42%tile; BPP 8/8 Further plan pending d/w attending. Beto Callahan DO 02/11/2021, 6:04 AM Associated attestation - Haily Lopez MD - 02/11/2021 3:31 PM EDT Maternal Medicine Attending Attestation: I have performed a history and physical examination on the patient and discussed the management with the residents physician. I reviewed and agree with the findings and plan as documented in the note. 20 y.o. at 28w2d with PPROM. The patient denies nausea, vomiting, vaginal bleeding, contractions, and/or abdominal pain. She also denies blurring of vision, visual disturbances, headaches, and /or epigastric pain. She reports the fetus to be active. Vitals: 02/11/21 0548 02/11/21 0853 02/11/21 1153 02/11/21 1520 BP: (!) 89/54 96/61 99/64 107/65 Pulse: 103 90 96 74 Resp: 16 16 16 16 Temp: 98.1 F (36.7 C) 97.7 F (36.5 C) 97.9 F (36.6 C) 97.4 F (36.3 C) TempSrc: Temporal Temporal Temporal Temporal SpO2: 98% 96% 97% 97% Weight: Height: Plan: Expectant management. I spent 15 minutes at the visit, with more than 50% of the total face to face time of the visit in counseling and coordination of care. Haily Lopez MD PPROM * Erin Mejia DTR - 02/10/2021 9:26 AM EDT Nutrition update completed. Chart reviewed. Patient to be monitored and followed by the diet flight readiness technician. * Beto Callahan DO - 02/10/2021 6:27 AM EDT Images from the original note were not included. Maternal Medicine Service Resident Progress Note 02/10/2021 6:27 AM 01/19/2021 Hospital Day: 23 Raymond Brownlee, 20 y.o. 28w1d Patient has been seen and examined. No complaints this AM. Overnight did mention to RN that she hadslight brown discharge with her fluid but no longer having. Positive movement Negative vaginal bleeding Positive LOF Negative Contractions Vitals: 02/09/21 1616 02/09/21 1945 02/10/21 0007 02/10/21 0507 BP: 102/60 97/62 (!) 102/57 (!) 91/55 Pulse: 88 102 85 76 Resp: 20 18 18 16 Temp: 97.1 F (36.2 C) 97.9 F (36.6 C) 99.3 F (37.4 C) 97.5 F (36.4 C) TempSrc: Temporal Temporal Temporal Temporal SpO2: 97% 98% 97% 98% Weight: Height: FHT: 130, moderate variability Accels: present Decels: absent Contractions: none Physical Exam: Gen: NAD HEENT: Normocephalic, Atraumatic Resp: no increased work of breathing, no respiratory distress Card: Regular rate Abd: soft, gravid, NTND, no rebound, no guarding. negative fundal tenderness Ext: No LE edema, no calf tenderness or swelling Medications: Current Facility-Administered Medications Medication Dose Route Frequency Provider Last Rate Last Admin calcium carbonate (TUMS) chewable tablet 500 mg 500 mg Oral TID PRN Hollie W Faby, DO 500 mg at 01/25/21 0010 famotidine (PEPCID) tablet 20 mg 20 mg Oral BID Hollie W Faby, DO 20 mg at 02/09/212120 0.9 % sodium chloride infusion 25 mL Intravenous PRN Urmila Wright, DO ondansetron (ZOFRAN-ODT) disintegrating tablet 4 mg 4 mg Oral Q8H PRN Urmila Wright, DO Or ondansetron (ZOFRAN) injection 4 mg 4 mg Intravenous Q6H PRN Urmila Ottoker, DO acetaminophen (TYLENOL) tablet 650 mg 650 mg Oral Q4H PRN Urmila Wright, DO vitamin 27-1 MG tablet 1 tablet 1 tablet Oral Daily Urmila Wright DO 1 tablet at 02/09/21 1037 docusate sodium (COLACE) capsule 100 mg 100 mg Oral BID PRN rUmila Wright DO 100 mg at acyclovir (ZOVIRAX) capsule 400 mg 400 mg Oral TID Urmila Wright DO 400 mg at 02/09/212120 Assessment/Plan: Raymond Brownlee is a 20 y.o. female 28w1d PPROM - continued inpatient observation - no signs/symptoms of infection HSV - continue acyclovir PPx IUP @ 28w1d - Dating by 1st Tri US - Cephalic on 02/07 - MonitorinhrTID - Diet:General - BMZ x2 on 01/18 and 01/19 Further plan pending d/w attending. Beto Callahan DO 02/10/2021, 6:27 AM Associated attestation - Francesca López DO - 02/10/2021 2:45 PM EDT Attending Supervising Physician's Attestation Statement I performed a history and physical examination on the patient and discussed the management with theresident physician. I reviewed and agree with the findings and plan as documented in the note. 20 y.o. at 28w1d with PPROM (hospital day 23). Maternal and status are stable. She reports clear discharge. No CTXs, uterine tenderness, vaginal bleeding or irritation. Continue currentmanagement plan. I spent 15 minutes in the visit, with more than 50% of the total [id number] time of the visit in counseling/coordination of care. * Spike Anderson MD - 02/09/2021 6:18 AM EDT Images from the original note were not included. Maternal Medicine Service Resident Progress Note 02/09/2021 6:18 AM 01/19/2021 Hospital Day: 22 Raymond Brownlee, 20 y.o. 28w0d Patient has been seen and examined. Pt with no complaints overnight, doing better today compared toyday. Positive movement Negative vaginal bleeding Positive LOF Negative Contractions Vitals: 02/08/21 1625 02/08/21 2009 02/08/21 2306 02/09/21 0542 BP: 106/69 109/65 105/67 (!) 96/59 Pulse: 94 107 91 78 Resp: 16 16 16 16 Temp: 97.2 F (36.2 C) 98.1 F (36.7 C) 97.9 F (36.6 C) 98.7 F (37.1 C) TempSrc: Temporal Temporal Temporal Temporal SpO2: 96% 98% 100% 96% Weight: Height: FHT: 130, moderate variability Accels: present Decels: absent Contractions: none Physical Exam: Gen: NAD HEENT: Normocephalic, Atraumatic, EOMI, MMM Resp: CTABL, no WRR Card: RRR S1S2 Abd: soft, gravid, NTND, no rebound, no guarding. negative fundal tenderness Ext: No LE edema, no calf tenderness or swelling Medications: Current Facility-Administered Medications Medication Dose Route Frequency Provider Last Rate Last Admin calcium carbonate (TUMS) chewable tablet 500 mg 500 mg Oral TID PRN Hollie W Faby, DO 500 mg at 01/25/21 0010 famotidine (PEPCID) tablet 20 mg 20 mg Oral BID Hollie W Faby, DO 20 mg at 02/08/21 2227 0.9 % sodium chloride infusion 25 mL Intravenous PRN Urmila Ottoker, DO ondansetron (ZOFRAN-ODT) disintegrating tablet 4 mg 4 mg Oral Q8H PRN Urmila Wright, DO Or ondansetron (ZOFRAN) injection 4 mg 4 mg Intravenous Q6H PRN Urmila Matthewserker, DO acetaminophen (TYLENOL) tablet 650 mg 650 mg Oral Q4H PRN Urmila Simental Smerker, DO vitamin 27-1 MG tablet 1 tablet 1 tablet Oral Daily Urmila Matthewserker, DO 1 tablet at 02/08/21 0954 docusate sodium (COLACE) capsule 100 mg 100 mg Oral BID PRN Urmila Simental Smerker, DO 100 mg at 908 acyclovir (ZOVIRAX) capsule 400 mg 400 mg Oral TID Urmila Wright DO 400 mg at 02/08/212226 Assessment/Plan: Raymond Brownlee is a 20 y.o. female 28w0d PPROM - Continued inpatient observation - VSS HSV - Continue acyclovir prophylaxis IUP @ 28w0d - Dating by \ US - Cephalic on 02/07 - MonitorinhrTID - Diet:General - BMZ x2 on 01/18- Further plan pending d/w attending. Spike Anderson MD 02/09/2021, 6:18 AM Associated attestation - Francesca López DO - 02/09/2021 12:03 PM EDT Attending Supervising Physician's Attestation Statement I performed a history and physical examination on the patient and discussed the management with theresident physician. I reviewed and agree with the findings and plan as documented in the note. Stable PPROM: maternal and medical status. Raymond reported a difficult time coping with long hospitalization yesterday. Improved today. I spent 15 minutes in the visit, with more than 50% of the total [id number] time of the visit in counseling/coordination of care. * Spike Anderson MD - 02/08/2021 6:18 AM EDT Images from the original note were not included. Maternal Medicine Service Resident Progress Note 02/08/2021 6:18 AM 01/19/2021 Hospital Day: 21 Raymond Brownlee, 20 y.o. 27w6d Patient has been seen and examined. Pt with no complaints overnight Positive movement Negative vaginal bleeding Positive LOF Negative Contractions Vitals: 02/07/21 1533 02/07/21 1956 02/07/21 2310 02/08/21 0608 BP: 97/61 102/67 102/66 (!) 85/51 Pulse: 105 106 104 76 Resp: 16 16 16 18 Temp: 98 F (36.7 C) 98 F (36.7 C) 97.7 F (36.5 C) 97.9 F (36.6 C) TempSrc: Temporal Temporal Temporal Temporal SpO2: 96% 97% 97% 96% Weight: Height: FHT: 130, moderate variability Accels: present Decels: absent Contractions: none Physical Exam: Gen: NAD HEENT: Normocephalic, Atraumatic, EOMI, MMM Resp: CTABL, no WRR Card: RRR S1S2 Abd: soft, gravid, NTND, no rebound, no guarding. negative fundal tenderness Ext: No LE edema, no calf tenderness or swelling Medications: Current Facility-Administered Medications Medication Dose Route Frequency Provider Last Rate Last Admin calcium carbonate (TUMS) chewable tablet 500 mg 500 mg Oral TID PRN Hollie W Faby, DO 500 mg at 01/25/21 0010 famotidine (PEPCID) tablet 20 mg 20 mg Oral BID Hollie W Faby, DO 20 mg at 02/07/212107 0.9 % sodium chloride infusion 25 mL Intravenous PRN Urmila Ottoker, DO ondansetron (ZOFRAN-ODT) disintegrating tablet 4 mg 4 mg Oral Q8H PRN Urmila C Smerker, DO Or ondansetron (ZOFRAN) injection 4 mg 4 mg Intravenous Q6H PRN Urmila C Smerker, DO acetaminophen (TYLENOL) tablet 650 mg 650 mg Oral Q4H PRN Urmila C Smerker, DO vitamin 27-1 MG tablet 1 tablet 1 tablet Oral Daily Urmila C Smerker, DO 1 tablet at 02/07/21 0949 docusate sodium (COLACE) capsule 100 mg 100 mg Oral BID PRN Urmila C Smerker, DO 100 mg at 8 acyclovir (ZOVIRAX) capsule 400 mg 400 mg Oral TID Urmila C Smerker, DO 400 mg at 02/07/212107 Assessment/Plan: Raymond Brownlee is a 20 y.o. female 27w6d PPROM - Continued inpatient observation - VSS , afebrile HSV - Acyclovir for prophylaxis Depression - CLP saw patient yesterday, no medications at this time - Will continue to follow IUP @ 27w6d - Dating by /\ US - Cephalic on 02/07 - MonitorinhrTID - Diet:General - BMZ x2 on Further plan pending d/w attending. Spike Anderson MD 02/08/2021, 6:18 AM Associated attestation - Rohit Stein MD - 02/08/2021 8:25 PM EDT I performed a history and physical examination on the patient and discussed the management with theresident physician. I reviewed and agree with the findings and plan as documented in their note today. 20 yr old at 27 6/7 GA with the following: PPrOM, stable and continued leakage. Understands the plan. S/p latency and continued expectant management now HSV continued acyclovir Prematurity s/p BMZ X2 cephalic on ultrasound. She is a candidate for magnesium for neuroprotectionif delivery planned or labor. No chorioamnionitis or concerns for vaginal bleeding. Okay for continued expectant management Moods improved today, and will continue to follow I spent 15 minutes in the visit today on the floor reviewing the chart, discussing the case with the residency staff and nursing Rohit Stein MD MD * Spike Anderson MD - 02/07/2021 6:19 AM EDT Images from the original note were not included. Maternal Medicine Service Resident Progress Note 02/07/2021 6:20 AM 01/19/2021 Hospital Day: 20 Raymond Brownlee, 20 y.o. 27w5d Patient has been seen and examined. Pt with no complaints overnight . Positive movement Negative vaginal bleeding Positive LOF Negative Contractions Vitals: 02/06/21 1633 02/06/21 1946 02/06/21 2344 02/07/21 0452 BP: 101/63 108/69 96/61 103/63 Pulse: 83 96 96 85 Resp: 18 17 18 16 Temp: 97.7 F (36.5 C) 98.1 F (36.7 C) 99.9 F (37.7 C) 98.7 F (37.1 C) TempSrc: Temporal Temporal Temporal Temporal SpO2: 96% 97% 97% 97% Weight: Height: FHT: 120, moderate variability Accels: present Decels: absent Contractions: none Physical Exam: Gen: NAD HEENT: Normocephalic, Atraumatic, EOMI, MMM Resp: CTABL, no WRR Card: RRR S1S2 Abd: soft, gravid, NTND, no rebound, no guarding. negative fundal tenderness Ext: No LE edema, no calf tenderness or swelling Medications: Current Facility-Administered Medications Medication Dose Route Frequency Provider Last Rate Last Admin calcium carbonate (TUMS) chewable tablet 500 mg 500 mg Oral TID PRN Hollie W Faby, DO 500 mg at 01/25/21 0010 famotidine (PEPCID) tablet 20 mg 20 mg Oral BID Hollie W Faby, DO 20 mg at 02/06/212123 0.9 % sodium chloride infusion 25 mL Intravenous PRN Urmila Ottoker, DO ondansetron (ZOFRAN-ODT) disintegrating tablet 4 mg 4 mg Oral Q8H PRN Urmila Ottoker, DO Or ondansetron (ZOFRAN) injection 4 mg 4 mg Intravenous Q6H PRN Urmila Simental Smerker, DO acetaminophen (TYLENOL) tablet 650 mg 650 mg Oral Q4H PRN Urmila C Smerker, DO vitamin 27-1 MG tablet 1 tablet 1 tablet Oral Daily Urmila C Smerker, DO 1 tablet at 02/06/21 101 docusate sodium (COLACE) capsule 100 mg 100 mg Oral BID PRN Urmila Simental Smerker, DO 100 mg at acyclovir (ZOVIRAX) capsule 400 mg 400 mg Oral TID Urmila Simental Smerker, DO 400 mg at 02/06/212123 Assessment/Plan: Raymond Brownlee is a 20 y.o. female 27w5d PPROM - VSS - Continue inpatient management HSV - Continue acyclovir prophylaxis IUP @ 27w5d - Dating by \ US - Cephalic on 02/03 - MonitorinhrTID - Diet:General - BMZ x2 on 01/18- Further plan pending d/w attending. Spike Anderson MD 02/07/2021, 6:20 AM Associated attestation - Haily Lopez MD - 02/07/2021 4:02 PM EDT Maternal Medicine Attending Attestation: I have performed a history and physical examination on the patient and discussed the management with the residents physician. I reviewed and agree with the findings and plan as documented in the note. 20 y.o. at 27w5d with PPROM I spent 15 minutes at the visit, with more than 50% of the total face to face time of the visit in counseling and coordination of care. Haily Lopez MD * Simon Green MD - 02/06/2021 6:07 AM EDT Images from the original note were not included. Maternal Medicine Service Resident Progress Note 02/06/2021 6:07 AM 01/19/2021 Hospital Day: 19 Raymond Brownlee, 20 y.o. 27w4d Patient has been seen and examined. Pt without complaints this AM. Positive movement Negative vaginal bleeding Positive leakage of clear fluid Negative Contractions Vitals: 02/05/21 1634 02/05/21 2008 02/05/21 2332 02/06/21 0354 BP: 114/78 103/67 (!) 99/57 95/60 Pulse: 106 93 78 88 Resp: 18 17 16 17 Temp: 97.4 F (36.3 C) 97.8 F (36.6 C) 98 F (36.7 C) 97.7 F (36.5 C) TempSrc: Temporal Temporal SpO2: 99% 97% 96% 97% Weight: Height: FHT: 130, moderate variability Accels: present Decels: absent Contractions: none Physical Exam: Gen: NAD HEENT: Normocephalic, Atraumatic, EOMI, MMM Resp: no increased work of breathing Abd: soft, gravid, NTND, no rebound, no guarding. negative fundal tenderness Ext: No LE edema, no calf tenderness or swelling Medications: Current Facility-Administered Medications Medication Dose Route Frequency Provider Last Rate Last Admin calcium carbonate (TUMS) chewable tablet 500 mg 500 mg Oral TID PRN Hollie Keanehl, DO 500 mg at 01/25/21 0010 famotidine (PEPCID) tablet 20 mg 20 mg Oral BID Hollie W Faby, DO 20 mg at 02/05/212151 0.9 % sodium chloride infusion 25 mL Intravenous PRN Urmila C Smerker, DO ondansetron (ZOFRAN-ODT) disintegrating tablet 4 mg 4 mg Oral Q8H PRN Urmila C Smerker, DO Or ondansetron (ZOFRAN) injection 4 mg 4 mg Intravenous Q6H PRN Urmila C Smerker, DO acetaminophen (TYLENOL) tablet 650 mg 650 mg Oral Q4H PRN Urmila C Smerker, DO vitamin 27-1 MG tablet 1 tablet 1 tablet Oral Daily Urmila C Smerker, DO 1 tablet at 02/05/21 1040 docusate sodium (COLACE) capsule 100 mg 100 mg Oral BID PRN Urmila C Smerker, DO 100 mg at 908 acyclovir (ZOVIRAX) capsule 400 mg 400 mg Oral TID Urmila C Smerker, DO 400 mg at 02/05/212151 Assessment/Plan: Raymond Brownlee is a 20 y.o. female 27w4d PPROM - Afebrile - Continues to leak clear fluid but otherwise asymptomatic - Continue inpatient management HSV - Continue Acyclovir prophylaxis IUP @ 27w4d - Dating by \ - Cephalic on 02/03 - Monitorinhr TID - Diet:General - BMZ x2 on 01/18- Further plan pending d/w attending. Simon Green MD 02/06/2021, 6:07 AM Associated attestation - Rohit Stein MD - 02/06/2021 9:44 AM EDT I performed a history and physical examination on the patient and discussed the management with theresident physician. I reviewed and agree with the findings and plan as documented in their note today. 20 yr old at 27 4/7 GA with the following: PPrOM, stable and continued leakage. Understands the plan. S/p latency and continued expectant management now HSV continued acyclovir Prematurity s/p BMZ X2 transverse on previous ultrasound. Will need to scan if labor. She is a candidate for magnesium for neuroprotection if delivery planned or labor. Understands that she may need a . No chorioamnionitis or concerns for vaginal bleeding. Okay for continued expectant management Very tearful today and we talked about her mood. She is having problems with the skilled nursing admission away from her daughter. She is planning visit today, but will watch for worsening concerns relatedto depression suspect this is situational issue related to her hospital confinement I spent 15 minutes in the visit today on the floor reviewing the chart, discussing the case with the residency staff and nursing Rohit Stein MD MD * Erin Mejia DTR - 02/05/2021 1:49 PM EDT Nutrition update completed. Chart reviewed. Patient to be monitored and followed by the diet flight readiness technician. * José Miguel Pace DO - 02/05/2021 6:02 AM EDT Images from the original note were not included. Maternal Medicine Service Resident Progress Note 02/05/2021 6:02 AM 01/19/2021 Hospital Day: 18 Raymond Brownlee, 20 y.o. 27w3d Patient has been seen and examined. Pt had no complaints this am denies F/C abd pain . Positive movement Negative vaginal bleeding Positive LOF Negative Contractions Vitals: 02/03/21 2347 02/04/21 0624 02/04/21 0808 02/04/21 1416 BP: (!) 93/58 (!) 94/58 103/63 105/72 Pulse: 97 87 89 90 Resp: 18 16 18 20 Temp: 98.5 F (36.9 C) 98.2 F (36.8 C) 98.4 F (36.9 C) 97.9 F (36.6 C) TempSrc: Temporal Temporal Temporal Temporal SpO2: 98% 96% 98% Weight: Height: FHT: 140, moderate variability Accels: present Decels: absent Contractions: none Physical Exam: Gen: NAD HEENT: Normocephalic, Atraumatic, EOMI, MMM Resp: CTABL, no WRR Card: RRR S1S2 Abd: soft, gravid, NTND, no rebound, no guarding. negative fundal tenderness Ext: No LE edema, no calf tenderness or swelling Medications: Current Facility-Administered Medications Medication Dose Route Frequency Provider Last Rate Last Admin calcium carbonate (TUMS) chewable tablet 500 mg 500 mg Oral TID PRN Hollie W Faby, DO 500 mg at 01/25/21 0010 famotidine (PEPCID) tablet 20 mg 20 mg Oral BID Hollie W Faby, DO 20 mg at 02/04/212124 0.9 % sodium chloride infusion 25 mL Intravenous PRN Urmila Wright, DO ondansetron (ZOFRAN-ODT) disintegrating tablet 4 mg 4 mg Oral Q8H PRN Urmila Ottoker, DO Or ondansetron (ZOFRAN) injection 4 mg 4 mg Intravenous Q6H PRN Urmila Ottoker, DO acetaminophen (TYLENOL) tablet 650 mg 650 mg Oral Q4H PRN Urmila Simental Smerker, DO vitamin 27-1 MG tablet 1 tablet 1 tablet Oral Daily Urmila C Smerker, DO 1 tablet at 02/04/21 09 docusate sodium (COLACE) capsule 100 mg 100 mg Oral BID PRN Urmila Simental Smerker, DO 100 mg at acyclovir (ZOVIRAX) capsule 400 mg 400 mg Oral TID Urmila Ottoker, DO 400 mg at 02/04/212124 Assessment/Plan: Raymond Brownlee is a 20 y.o. female 27w3d PPROM - AFVSS - remains asymptomatic - continue inpatient monitoring HSV - continue acyclovir ppx IUP @ 27w3d - Dating by \ - Cephalic on 02/03 - Monitorinhr TID - Diet:General - BMZ x2 on 01/18- Further plan pending d/w attending. José Miguel Pace DO 02/05/2021, 6:02 AM Associated attestation - Rohit Stein MD - 02/05/2021 5:27 PM EDT I performed a history and physical examination on the patient and discussed the management with theresident physician. I reviewed and agree with the findings and plan as documented in their note today. 20 yr old at 27 3/7 GA with the following: PPrOM, stable and continued leakage. Understands the plan. S/p latency and continued expectant management now HSV continued acyclovir Prematurity s/p BMZ X2 transverse on previous ultrasound. Will need to scan if labor. She is a candidate for magnesium for neuroprotection if delivery planned or labor. Understands that she may need a . No chorioamnionitis or concerns for vaginal bleeding. Okay for continued expectant management I spent 15 minutes in the visit today on the floor reviewing the chart, discussing the case with the residency staff and nursing Rohit Stein MD MD * Spike Anderson MD - 02/04/2021 6:18 AM EDT Images from the original note were not included. Maternal Medicine Service Resident Progress Note 02/04/2021 6:19 AM 01/19/2021 Hospital Day: 17 Raymond Brownlee, 20 y.o. 27w2d Patient has been seen and examined. Pt complains with no complaints overnight Positive movement Negative vaginal bleeding Positive LOF Negative Contractions Vitals: 02/03/21 1621 02/03/21 1948 02/03/21 2114 02/03/21 2347 BP: 115/66 117/70 (!) 93/58 Pulse: 94 110 97 Resp: Temp: 96.8 F (36 C) 99 F (37.2 C) 98.5 F (36.9 C) TempSrc: Temporal Temporal Temporal Temporal SpO2: 98% 97% 98% Weight: Height: FHT: 125, moderate variability Accels: present Decels: absent Contractions: none Physical Exam: Gen: NAD HEENT: Normocephalic, Atraumatic, EOMI, MMM Resp: CTABL, no WRR Card: RRR S1S2 Abd: soft, gravid, NTND, no rebound, no guarding. negative fundal tenderness Ext: No LE edema, no calf tenderness or swelling Medications: Current Facility-Administered Medications Medication Dose Route Frequency Provider Last Rate Last Admin calcium carbonate (TUMS) chewable tablet 500 mg 500 mg Oral TID PRN Hollei W Faby, DO 500 mg at 01/25/21 0010 famotidine (PEPCID) tablet 20 mg 20 mg Oral BID Hollie W Faby, DO 20 mg at 02/03/212140 0.9 % sodium chloride infusion 25 mL Intravenous PRN Urmila C Smerker, DO ondansetron (ZOFRAN-ODT) disintegrating tablet 4 mg 4 mg Oral Q8H PRN Urmila C Smerker, DO Or ondansetron (ZOFRAN) injection 4 mg 4 mg Intravenous Q6H PRN Urmila C Smerker, DO acetaminophen (TYLENOL) tablet 650 mg 650 mg Oral Q4H PRN Urmila C Smerker, DO vitamin 27-1 MG tablet 1 tablet 1 tablet Oral Daily Urmila C Smerker, DO 1 tablet at 02/03/21 1008 docusate sodium (COLACE) capsule 100 mg 100 mg Oral BID PRN Urmila C Smerker, DO 100 mg at acyclovir (ZOVIRAX) capsule 400 mg 400 mg Oral TID Urmila C Smerker, DO 400 mg at 02/03/212140 Assessment/Plan: Raymond Brownlee is a 20 y.o. female 27w2d PPROM - VSS, asymptomatic - Continued inpatient observation HSV - Continue acyclovir prophylaxis IUP @ 27w2d - Dating by \ - Cephalic on 02/03 - MonitorinhrTID - Diet:General - BMZ x2 on 01/18- Further plan pending d/w attending. Spike Anderson MD 02/04/2021, 6:19 AM Associated attestation - Rohit Stein MD - 02/04/2021 12:09 PM EDT I performed a history and physical examination on the patient and discussed the management with theresident physician. I reviewed and agree with the findings and plan as documented in their note today. 20 yr old at 27 2/7 GA with the following: PPrOM, stable and continued leakage. Understands the plan. S/p latency and continued expectant management now HSV continued acyclovir Prematurity s/p BMZ X2 transverse on previous ultrasound. Will need to scan if labor. She is a candidate for magnesium for neuroprotection if delivery planned or labor. Understands that she may need a . No chorioamnionitis or concerns for vaginal bleeding. Okay for continued expectant management I spent 15 minutes in the visit today on the floor reviewing the chart, discussing the case with the residency staff and nursing Rohit Stein MD MD * Spike Anderson MD - 02/03/2021 6:21 AM EDT Images from the original note were not included. Maternal Medicine Service Resident Progress Note 02/03/2021 6:22 AM 01/19/2021 Hospital Day: 16 Raymond Brownlee, 20 y.o. 27w1d Patient has been seen and examined. Pt doing well without complaints Positive movement Negative vaginal bleeding Positive LOF Negative Contractions Vitals: 02/02/21 1546 02/02/21 1956 02/02/21 2302 02/03/21 0548 BP: 99/70 120/73 95/60 (!) 94/57 Pulse: 99 95 90 90 Resp: 18 16 16 16 Temp: 98.5 F (36.9 C) 99 F (37.2 C) 97.5 F (36.4 C) 98.6 F (37 C) TempSrc: Temporal Temporal Temporal Temporal SpO2: 97% 98% 97% 97% Weight: Height: FHT: 150, moderate variability Accels: present Decels: absent Contractions: none Physical Exam: Gen: NAD HEENT: Normocephalic, Atraumatic, EOMI, MMM Resp: CTABL, no WRR Card: RRR S1S2 Abd: soft, gravid, NTND, no rebound, no guarding. negative fundal tenderness Ext: No LE edema, no calf tenderness or swelling Medications: Current Facility-Administered Medications Medication Dose Route Frequency Provider Last Rate Last Admin calcium carbonate (TUMS) chewable tablet 500 mg 500 mg Oral TID PRN Hollie W Faby, DO 500 mg at 01/25/21 0010 famotidine (PEPCID) tablet 20 mg 20 mg Oral BID Hollie W Faby, DO 20 mg at 02/02/212134 0.9 % sodium chloride infusion 25 mL Intravenous PRN Urmila Simental Smerker, DO ondansetron (ZOFRAN-ODT) disintegrating tablet 4 mg 4 mg Oral Q8H PRN Urmila C Smerker, DO Or ondansetron (ZOFRAN) injection 4 mg 4 mg Intravenous Q6H PRN Urmila C Smerker, DO acetaminophen (TYLENOL) tablet 650 mg 650 mg Oral Q4H PRN Urmila C Smerker, DO vitamin 27-1 MG tablet 1 tablet 1 tablet Oral Daily Urmila C Smerker, DO 1 tablet at 02/02/21 0938 docusate sodium (COLACE) capsule 100 mg 100 mg Oral BID PRN Urmila C Smerker, DO 100 mg at 8 acyclovir (ZOVIRAX) capsule 400 mg 400 mg Oral TID Urmila C Smerker, DO 400 mg at 02/02/212134 Assessment/Plan: Raymond Brownlee is a 20 y.o. female 27w1d PPROM - VSS, asymptomatic - Continued inpatient observation HSV - continue acyclovir prophylaxis IUP @ 27w1d - Dating by \ US - Transverse, back down on 01/31 - MonitorinhrTID - Diet:General - BMZ x2 on 01/18- Further plan pending d/w attending. Spike Anderson MD 02/03/2021, 6:22 AM Associated attestation - Francesca López DO - 02/03/2021 4:53 PM EDT Attending Supervising Physician's Attestation Statement I performed a history and physical examination on the patient and discussed the management with theresident physician. I reviewed and agree with the findings and plan as documented in the note. Stable PPROM. Cephalic on US today(transverse on prior US). Possible clubbed foot. Limited assessment with US given oligohydramnios. Plan for evaluation after . I spent 15 minutes in the visit, with more than 50% of the total [id number] time of the visit in counseling/coordination of care. * Spike Anderson MD - 02/02/2021 6:15 AM EDT Images from the original note were not included. Maternal Medicine Service Resident Progress Note 02/02/2021 6:15 AM 01/19/2021 Hospital Day: 15 Raymond Brownlee, 20 y.o. 27w0d Patient has been seen and examined. Pt with no complaints overnight. Positive movement Negative vaginal bleeding Positive LOF Negative Contractions Vitals: 02/01/21 1542 02/01/21 2025 02/01/21 2338 02/02/21 0412 BP: 104/67 114/71 94/64 (!) 92/55 Pulse: 98 95 82 74 Resp: 18 17 17 16 Temp: 98.6 F (37 C) 97.9 F (36.6 C) 98.2 F (36.8 C) 98.2 F (36.8 C) TempSrc: Oral Temporal Temporal Temporal SpO2: 96% 98% 97% 97% Weight: Height: FHT: 140, moderate variability Accels: present Decels: absent Contractions: none Physical Exam: Gen: NAD HEENT: Normocephalic, Atraumatic, EOMI, MMM Resp: CTABL, no WRR Card: RRR S1S2 Abd: soft, gravid, NTND, no rebound, no guarding. negative fundal tenderness Ext: No LE edema, no calf tenderness or swelling Medications: Current Facility-Administered Medications Medication Dose Route Frequency Provider Last Rate Last Admin calcium carbonate (TUMS) chewable tablet 500 mg 500 mg Oral TID PRN Hollie W Faby, DO 500 mg at 01/25/21 0010 famotidine (PEPCID) tablet 20 mg 20 mg Oral BID Hollie W Faby, DO 20 mg at 02/01/21 2145 0.9 % sodium chloride infusion 25 mL Intravenous PRN Urmila Wright DO ondansetron (ZOFRAN-ODT) disintegrating tablet 4 mg 4 mg Oral Q8H PRN Urmila C Smerker, DO Or ondansetron (ZOFRAN) injection 4 mg 4 mg Intravenous Q6H PRN Urmila C Smerker, DO acetaminophen (TYLENOL) tablet 650 mg 650 mg Oral Q4H PRN Urmila C Smerker, DO vitamin 27-1 MG tablet 1 tablet 1 tablet Oral Daily Urmila C Smerker, DO 1 tablet at 02/01/21 0935 docusate sodium (COLACE) capsule 100 mg 100 mg Oral BID PRN Urmila C Smerker, DO 100 mg at 908 acyclovir (ZOVIRAX) capsule 400 mg 400 mg Oral TID Urmila C Smerker, DO 400 mg at 02/01/21 2144 Assessment/Plan: Raymond Brownlee is a 20 y.o. female 27w0d PPROM - S/p latency antibiotics - VSS, asymptomatic IUP @ 27w0d - Dating by \ US - Transverse, back down on 01/31 - Monitorinhr TID - Diet:General - BMZ x2 on 01/18- Further plan pending d/w attending. Spike Anderson MD 02/02/2021, 6:15 AM Associated attestation - Rohit Stein MD - 02/02/2021 12:17 PM EDT I performed a history and physical examination on the patient and discussed the management with theresident physician. I reviewed and agree with the findings and plan as documented in their note today. 20 yr old at 27 0/7 GA with the following: PPrOM, stable and continued leakage. Understands the plan. S/p latency and continued expectant management now HSV continued acyclovir Prematurity s/p BMZ X2 transverse on ultrasound yesterday. she is a candidate for magnesium for neuroprotection if delivery planned or labor. Understands that she may need a . No chorioamnionitis or concerns for vaginal bleeding. Okay for continued expectant management I spent 15 minutes in the visit today on the floor reviewing the chart, discussing the case with the residency staff and nursing Rohit Stein MD MD * Monica, Spike Rios MD - 02/01/2021 6:19 AM EDT Images from the original note were not included. Maternal Medicine Service Resident Progress Note 02/01/2021 6:20 AM 01/19/2021 Hospital Day: 14 Raymond Brwonlee, 20 y.o. 26w6d Patient has been seen and examined. Pt with no complaints overnight. Positive movement Negative vaginal bleeding Positive LOF Negative Contractions Vitals: 01/31/21 1206 01/31/21 1609 01/31/21 1957 01/31/21 2332 BP: 107/70 102/70 115/75 (!) 83/53 Pulse: 96 89 103 74 Resp: 16 18 18 20 Temp: 97.1 F (36.2 C) 97.2 F (36.2 C) 97.2 F (36.2 C) 97 F (36.1 C) TempSrc: Temporal Temporal Temporal Temporal SpO2: 97% 96% 97% 97% Weight: Height: FHT: 140, moderate variability Contractions: none Physical Exam: Gen: NAD HEENT: Normocephalic, Atraumatic, EOMI, MMM Resp: CTABL, no WRR Card: RRR S1S2 Abd: soft, gravid, NTND, no rebound, no guarding. negative fundal tenderness Ext: No LE edema, no calf tenderness or swelling Medications: Current Facility-Administered Medications Medication Dose Route Frequency Provider Last Rate Last Admin calcium carbonate (TUMS) chewable tablet 500 mg 500 mg Oral TID PRN Hollie W Faby, DO 500 mg at 01/25/21 0010 famotidine (PEPCID) tablet 20 mg 20 mg Oral BID Hollie W Faby, DO 20 mg at 01/31/21 210 0.9 % sodium chloride infusion 25 mL Intravenous PRN Urmila Wright, DO ondansetron (ZOFRAN-ODT) disintegrating tablet 4 mg 4 mg Oral Q8H PRN Urmila Wright, DO Or ondansetron (ZOFRAN) injection 4 mg 4 mg Intravenous Q6H PRN Urmila Wright, DO acetaminophen (TYLENOL) tablet 650 mg 650 mg Oral Q4H PRN Urmila C Smerker, DO vitamin 27-1 MG tablet 1 tablet 1 tablet Oral Daily Urmila C Smerker, DO 1 tablet at 01/31/21 09 docusate sodium (COLACE) capsule 100 mg 100 mg Oral BID PRN Urmila C Smerker, DO 100 mg at acyclovir (ZOVIRAX) capsule 400 mg 400 mg Oral TID Urmila C Smerker, DO 400 mg at 01/31/212100 Assessment/Plan: Raymond Brownlee is a 20 y.o. female 26w6d PPROM - Continue expectant management - VSS, asymptomatic IUP @ 26w6d - Dating by \ - Transverse, back down on 01/31 - Monitoring:NSTtid - Diet:General - BMZ x2 on 01/18- Further plan pending d/w attending. Spike Anderson MD 02/01/2021, 6:20 AM Associated attestation - Rohit Stein MD - 02/01/2021 11:11 AM EDT I performed a history and physical examination on the patient and discussed the management with theresident physician. I reviewed and agree with the findings and plan as documented in their note today. 20 yr old at 26 6/7 GA with the following: PPrOM, stable and continued leakage. Understands the plan. S/p latency and continued expectant management now HSV continued acyclovir Prematurity s/p BMZ X2 transverse on ultrasound she is a candidate for magnesium for neuroprotection if delivery planned or labor. Understands that she may need a . No chorioamnionitis or concerns for vaginal bleeding. Okay for continued expectant management I spent 15 minutes in the visit today on the floor reviewing the chart, discussing the case with the residency staff and nursing Rohit Stein MD MD * Erin Mejia DTR - 01/31/2021 1:11 PM EDT Nutrition update completed. Chart reviewed. Patient to be monitored and followed by the diet flight readiness technician. * Spike Anderson MD - 01/31/2021 6:12 AM EDT Images from the original note were not included. Maternal Medicine Service Resident Progress Note 01/31/2021 6:13 AM 01/19/2021 Hospital Day: 13 Raymond Brownlee, 20 y.o. 26w5d Patient has been seen and examined. Pt with no complaints overnight. Positive movement Negative vaginal bleeding Positive LOF Negative Contractions Vitals: 01/30/21 1622 01/30/21 2013 01/30/21 2306 01/31/21 0427 BP: 116/75 112/66 95/66 103/67 Pulse: 113 91 86 80 Resp: 20 16 16 16 Temp: 97.7 F (36.5 C) 97.3 F (36.3 C) 97.5 F (36.4 C) 98.6 F (37 C) TempSrc: Temporal Temporal Temporal Temporal SpO2: 96% 98% 97% 97% Weight: Height: FHT: 140, moderate variability Accels: present Decels: absent Contractions: none Physical Exam: Gen: NAD HEENT: Normocephalic, Atraumatic, EOMI, MMM Resp: CTABL, no WRR Card: RRR S1S2 Abd: soft, gravid, NTND, no rebound, no guarding. negative fundal tenderness Ext: No LE edema, no calf tenderness or swelling Medications: Current Facility-Administered Medications Medication Dose Route Frequency Provider Last Rate Last Admin calcium carbonate (TUMS) chewable tablet 500 mg 500 mg Oral TID PRN Hollie W Faby, DO 500 mg at 01/25/21 0010 famotidine (PEPCID) tablet 20 mg 20 mg Oral BID Hollie W Faby, DO 20 mg at 01/30/21 2152 0.9 % sodium chloride infusion 25 mL Intravenous PRN Urmila Wright DO ondansetron (ZOFRAN-ODT) disintegrating tablet 4 mg 4 mg Oral Q8H PRN Urmila Wright DO Or ondansetron (ZOFRAN) injection 4 mg 4 mg Intravenous Q6H PRN Urmila C Smerker, DO acetaminophen (TYLENOL) tablet 650 mg 650 mg Oral Q4H PRN Urmila C Smerker, DO vitamin 27-1 MG tablet 1 tablet 1 tablet Oral Daily Urmila C Smerker, DO 1 tablet at 01/30/21 0946 docusate sodium (COLACE) capsule 100 mg 100 mg Oral BID PRN Urmila C Smerker, DO 100 mg at 908 acyclovir (ZOVIRAX) capsule 400 mg 400 mg Oral TID Urmila C Smerker, DO 400 mg at 01/30/212151 Assessment/Plan: Raymond Brownlee is a 20 y.o. female 26w5d PPROM - Continue expectant management - VSS, asymptomatic IUP @ 26w5d - Dating by \ US - Cephalic on 01/27 - Monitoring:NSTbid - Diet:General - BMZ x2 on 01/18- Further plan pending d/w attending. Spike Anderson MD 01/31/2021, 6:13 AM Associated attestation - Francesca López DO - 01/31/2021 2:54 PM EDT Attending Supervising Physician's Attestation Statement I performed a history and physical examination on the patient and discussed the management with theresident physician. I reviewed and agree with the findings and plan as documented in the note. Stable PPROM at 26w5d. Recommend monitoring 1 hour TID. Suspected clubbed foot on prior US, unable to assess with oligohydramnios. exam recommended. I spent 15 minutes in the visit, with more than 50% of the total [id number] time of the visit in counseling/coordination of care. * Dung Ellison MD - 01/30/2021 6:06 AM EDT Images from the original note were not included. Maternal Medicine Service Resident Progress Note 01/30/2021 6:06 AM 01/19/2021 Hospital Day: 12 Raymond Brownlee, 20 y.o. 26w4d Patient has been seen and examined. Pt has no complatins. Positive movement Negative vaginal bleeding Positive LOF Negative Contractions Vitals: 01/29/21 1950 01/29/21 2319 01/30/21 0413 01/30/21 0550 BP: 114/77 106/66 (!) 100/58 105/60 Pulse: 95 98 96 76 Resp: 20 16 18 16 Temp: 97.3 F (36.3 C) 99 F (37.2 C) 97.8 F (36.6 C) 97.9 F (36.6 C) TempSrc: Temporal Temporal Temporal Temporal SpO2: 99% 98% 97% 95% Weight: Height: FHT: 140, moderate variability Accels: present Decels: absent Contractions: none Physical Exam: Gen: NAD HEENT: Normocephalic, Atraumatic, EOMI, MMM Abd: soft, gravid, NTND, no rebound, no guarding. negative fundal tenderness Ext: No LE edema, no calf tenderness or swelling Medications: Current Facility-Administered Medications Medication Dose Route Frequency Provider Last Rate Last Admin calcium carbonate (TUMS) chewable tablet 500 mg 500 mg Oral TID PRN Hollie W Faby, DO 500 mg at 01/25/21 0010 famotidine (PEPCID) tablet 20 mg 20 mg Oral BID Hollie W Faby, DO 20 mg at 01/29/21 213 0.9 % sodium chloride infusion 25 mL Intravenous PRN Urmila Ottoker, DO ondansetron (ZOFRAN-ODT) disintegrating tablet 4 mg 4 mg Oral Q8H PRN Urmila Wright, DO Or ondansetron (ZOFRAN) injection 4 mg 4 mg Intravenous Q6H PRN Urmila Simental Smerker, DO acetaminophen (TYLENOL) tablet 650 mg 650 mg Oral Q4H PRN Urmila Simental Smerker, DO vitamin 27-1 MG tablet 1 tablet 1 tablet Oral Daily Urmila C Smerker, DO 1 tablet at 01/29/21 0917 docusate sodium (COLACE) capsule 100 mg 100 mg Oral BID PRN Urmila C Smerker, DO 100 mg at 908 acyclovir (ZOVIRAX) capsule 400 mg 400 mg Oral TID Urmila Wright DO 400 mg at 01/29/212131 Assessment/Plan: Raymond Brownlee is a 20 y.o. female 26w4d PPROM - VSS, afebrile - s/p latency Abx - surveillance reassuring - continue expectant management HSV - continue acyclovir PPx IUP @ 26w4d - Dating by 1st Tri - Cephalic on 01/27 - Monitoring:NSTbid - Diet:General - BMZ x2 on 01/18-01/19 Further plan pending d/w attending. Dung Ellison MD 01/30/2021, 6:06 AM Associated attestation - Rohit Stein MD - 01/30/2021 11:16 AM EDT I performed a history and physical examination on the patient and discussed the management with theresident physician. I reviewed and agree with the findings and plan as documented in their note today. 20 yr old at 26 4/7 GA with the following: PPrOM, stable and continued leakage. Understands the plan. Continued latency PO HSV continued acyclovir Prematurity s/p BMZ X2 cephalic on ultrasound she is a candidate for magnesium for neuroprotection if delivery planned or labor No chorioamnionitis or concerns for vaginal bleeding. Okay for continued expectant management I spent 15 minutes in the visit today on the floor reviewing the chart, discussing the case with the residency staff and nursing Rohit Stein MD MD * Beto Callahan DO - 01/29/2021 6:22 AM EDT Images from the original note were not included. Maternal Medicine Service Resident Progress Note 01/29/2021 6:22 AM 01/19/2021 Hospital Day: 11 Raymond Brownlee, 20 y.o. 26w3d Patient has been seen and examined. Pt has no complaints, no acute events overnight. Positive movement Negative vaginal bleeding Positive LOF Negative Contractions Vitals: 01/28/21 1535 01/28/21 2041 01/28/21 2357 01/29/21 0355 BP: 114/68 110/70 95/63 92/61 Pulse: 106 109 92 82 Resp: 16 16 16 16 Temp: 97.7 F (36.5 C) 97.5 F (36.4 C) 99.3 F (37.4 C) 99.3 F (37.4 C) TempSrc: Temporal Temporal Temporal Temporal SpO2: 96% 98% 97% 98% Weight: Height: FHT: 130, moderate variability Accels: present Decels: absent Contractions: none Physical Exam: Gen: NAD HEENT: Normocephalic, Atraumatic Resp: no increased work of breathing, no respiratory distress Card: regular rate Abd: soft, gravid, NTND, no rebound, no guarding. negative fundal tenderness Ext: No LE edema, no calf tenderness or swelling Medications: Current Facility-Administered Medications Medication Dose Route Frequency Provider Last Rate Last Admin calcium carbonate (TUMS) chewable tablet 500 mg 500 mg Oral TID PRN Hollie W Faby, DO 500 mg at 01/25/21 0010 famotidine (PEPCID) tablet 20 mg 20 mg Oral BID Hollie W Faby, DO 20 mg at 01/28/212135 0.9 % sodium chloride infusion 25 mL Intravenous PRN Urmila Simental Smerker, DO ondansetron (ZOFRAN-ODT) disintegrating tablet 4 mg 4 mg Oral Q8H PRN Urmila Ottoker, DO Or ondansetron (ZOFRAN) injection 4 mg 4 mg Intravenous Q6H PRN Urmila Simental Smerker, DO acetaminophen (TYLENOL) tablet 650 mg 650 mg Oral Q4H PRN Urmila Simental Smerker, DO vitamin 27-1 MG tablet 1 tablet 1 tablet Oral Daily Urmila C Smerker, DO 1 tablet at 01/28/21 0949 docusate sodium (COLACE) capsule 100 mg 100 mg Oral BID PRN Urmila C Smerker, DO 100 mg at 908 acyclovir (ZOVIRAX) capsule 400 mg 400 mg Oral TID Urmila C Smerker, DO 400 mg at 01/28/212135 Assessment/Plan: Raymond Brownlee is a 20 y.o. female 26w3d PPROM - VSS, afebrile - s/p latency Abx - surveillance reassuring - continue expectant management HSV - continue acyclovir PPx IUP @ 26w3d - Dating by 1st Tri - Cephalic on 01/27 - Monitoring:NSTbid - Diet:General - BMZ x2 on 01/18-01/19 Further plan pending d/w attending. Beto Paola Barry, 01/29/2021, 6:22 AM Associated attestation - Rohit Stein MD - 01/29/2021 5:50 PM EDT I performed a history and physical examination on the patient and discussed the management with theresident physician. I reviewed and agree with the findings and plan as documented in their note today. 20 yr old at 26 3/7 GA with the following: PPrOM, stable and continued leakage. Understands the plan. Continued latency PO HSV continued acyclovir Prematurity s/p BMZ X2 cephalic on ultrasound she is a candidate for magnesium for neuroprotection if delivery planned or labor No chorioamnionitis or concerns for vaginal bleeding. Okay for continued expectant management I spent 15 minutes in the visit today on the floor reviewing the chart, discussing the case with the residency staff and nursing Rohit Stein MD MD * Haily Lopez MD - 01/28/2021 6:13 AM EDT Images from the original note were not included. Maternal Medicine Service Resident Progress Note 01/28/2021 6:13 AM 01/19/2021 Hospital Day: 10 Raymond Brownlee, 20 y.o. 26w2d Patient has been seen and examined. Pt with no complaints. Denies fevers, chills. Positive movement Negative vaginal bleeding Negative LOF Negative Contractions Vitals: 01/27/21 1541 01/27/21200101/27/21 2323 01/28/21 0434 BP: 113/67 103/77 (!) 96/58 93/60 Pulse: 98 94 88 75 Resp: 16 18 16 16 Temp: 97.7 F (36.5 C) 98.2 F (36.8 C) 98.1 F (36.7 C) 98.2 F (36.8 C) TempSrc: Temporal Temporal Temporal Temporal SpO2: 97% 98% 97% 97% Weight: Height: FHT: 130, moderate variability Accels: present Decels: absent Contractions: none Physical Exam: Gen: NAD HEENT: Normocephalic, Atraumatic, EOMI, MMM Resp: CTABL, no WRR Card: RRR S1S2 Abd: soft, gravid, NTND, no rebound, no guarding. negative fundal tenderness Ext: No LE edema, no calf tenderness or swelling Medications: Current Facility-Administered Medications Medication Dose Route Frequency Provider Last Rate Last Admin calcium carbonate (TUMS) chewable tablet 500 mg 500 mg Oral TID PRN Hollie W Faby, DO 500 mg at 01/25/21 0010 famotidine (PEPCID) tablet 20 mg 20 mg Oral BID Hollie W Faby, DO 20 mg at 01/27/212101 0.9 % sodium chloride infusion 25 mL Intravenous PRN Urmila Wright, DO ondansetron (ZOFRAN-ODT) disintegrating tablet 4 mg 4 mg Oral Q8H PRN Urmila Wright, DO Or ondansetron (ZOFRAN) injection 4 mg 4 mg Intravenous Q6H PRN Urmila Ottoker, DO acetaminophen (TYLENOL) tablet 650 mg 650 mg Oral Q4H PRN Urmila Ottoker, DO vitamin 27-1 MG tablet 1 tablet 1 tablet Oral Daily Urmila Wright, DO 1 tablet at 01/27/21 0908 docusate sodium (COLACE) capsule 100 mg 100 mg Oral BID PRN Urmila Simental Smerker, DO 100 mg at acyclovir (ZOVIRAX) capsule 400 mg 400 mg Oral TID Urmila Matthewserker, DO 400 mg at 01/27/212101 Assessment/Plan: Raymond Brownlee is a 20 y.o. female 26w2d PPROM - VSS, asymptomatic - surveillance reassuring HSV - continue acyclovir prophylaxis IUP @ 26w2d - Dating by /\ - Cephalic on 01/28 - Monitoring:NSTbid - Diet:General - BMZ x2 on Further plan pending d/w attending. Spike Anderson MD 01/28/2021, 6:13 AM Maternal Medicine Attending Attestation: I have performed a history and physical examination on the patient and discussed the management with the residents physician. I reviewed and agree with the findings and plan as documented in the note. 20 y.o. at 26w2d with PPROM. The patient denies nausea, vomiting, vaginal bleeding, leakage of fluid, contractions, and/or abdominal pain. She also denies blurring of vision, visual disturbances, headaches, and /or epigastric pain. She reports the fetus to be active. Vitals: 01/27/21 2323 01/28/21 0434 01/28/21 0745 01/28/21 1148 BP: (!) 96/58 93/60 (!) 95/58 106/68 Pulse: 88 75 94 104 Resp: 18 Temp: 98.1 F (36.7 C) 98.2 F (36.8 C) 97.6 F (36.4 C) 98.3 F (36.8 C) TempSrc: Temporal Temporal Oral Temporal SpO2: 97% 97% 97% 98% Weight: Height: Reassuring testing. No abdominal tenderness No foul discharge Plan: Expectant management. I spent 15 minutes at the visit, with more than 50% of the total face to face time of the visit in counseling and coordination of care. Haily Lopez MD * Spike Anderson MD - 01/27/2021 6:06 AM EDT Images from the original note were not included. Maternal Medicine Service Resident Progress Note 01/27/2021 6:06 AM 01/19/2021 Hospital Day: 9 Raymond Brownlee, 20 y.o. 26w1d Patient has been seen and examined. Pt with no complaints. Positive movement Negative vaginal bleeding Positive LOF Negative Contractions Vitals: 01/26/21 1645 01/26/21 1949 01/26/21 2345 01/27/21 0538 BP: (!) 86/51 106/68 (!) 97/58 (!) 95/54 Pulse: 97 105 90 80 Resp: 16 18 18 16 Temp: 98 F (36.7 C) 99.1 F (37.3 C) 97.3 F (36.3 C) 98.6 F (37 C) TempSrc: Temporal Temporal Temporal Temporal SpO2: 97% 97% 97% 97% Weight: Height: FHT: 140s, reassuring Contractions: none Physical Exam: Gen: NAD HEENT: Normocephalic, Atraumatic, EOMI, MMM Resp: CTABL, no WRR Card: RRR S1S2 Abd: soft, gravid, NTND, no rebound, no guarding. negative fundal tenderness Ext: No LE edema, no calf tenderness or swelling Medications: Current Facility-Administered Medications Medication Dose Route Frequency Provider Last Rate Last Admin calcium carbonate (TUMS) chewable tablet 500 mg 500 mg Oral TID PRN Hollie W Faby, DO 500 mg at 01/25/21 0010 famotidine (PEPCID) tablet 20 mg 20 mg Oral BID Hollie W Faby, DO 20 mg at 01/26/212101 0.9 % sodium chloride infusion 25 mL Intravenous PRN Urmila Simental Smerker, DO ondansetron (ZOFRAN-ODT) disintegrating tablet 4 mg 4 mg Oral Q8H PRN Urmila Simental Smerker, DO Or ondansetron (ZOFRAN) injection 4 mg 4 mg Intravenous Q6H PRN Urmila C Smerker, DO acetaminophen (TYLENOL) tablet 650 mg 650 mg Oral Q4H PRN Urmila C Smerker, DO vitamin 27-1 MG tablet 1 tablet 1 tablet Oral Daily Urmila C Smerker, DO 1 tablet at 01/26/21 0841 docusate sodium (COLACE) capsule 100 mg 100 mg Oral BID PRN Urmila C Smerker, DO 100 mg at 8 acyclovir (ZOVIRAX) capsule 400 mg 400 mg Oral TID Urmila C Smerker, DO 400 mg at 01/26/212101 Assessment/Plan: Raymond Brownlee is a 20 y.o. female 26w1d PPROM - S/p latency antibiotics - VSS, asymptomatic HSV - Continue acyclovir prophylaxis IUP @ 26w1d - Dating by first trimester US - Cephalic on 01/24 - Monitoring:NSTbid - Diet:General - BMZ x2 on 01/18- Further plan pending d/w attending. Spike Anderson MD 01/27/2021, 6:06 AM Associated attestation - Rohit Stein MD - 01/27/2021 10:09 AM EDT I performed a history and physical examination on the patient and discussed the management with theresident physician. I reviewed and agree with the findings and plan as documented in their note today. 20 yr old at 26 1/7 GA with the following: PPrOM, stable and continued leakage. Understands the plan. Continued latency PO HSV continued acyclovir Prematurity s/p BMZ X2 cephalic on ultrasound she is a candidate for magnesium for neuroprotection if delivery planned or labor No chorioamnionitis or concerns for vaginal bleeding. Okay for continued expectant management I spent 15 minutes in the visit today on the floor reviewing the chart, discussing the case with the residency staff and nursing Rohit Stein MD MD * Erin Mejia DTR - 01/26/2021 2:58 PM EDT Nutrition update completed. Chart reviewed. Patient to be monitored and followed by the diet flight readiness technician. * Spike Anderson MD - 01/26/2021 5:50 AM EDT Images from the original note were not included. Maternal Medicine Service Resident Progress Note 01/26/2021 5:50 AM 01/19/2021 Hospital Day: 8 Raymond Brownlee, 20 y.o. 26w0d Patient has been seen and examined. Pt doing well with no complaints. Continues to have some clear leaking of fluid Positive movement Negative vaginal bleeding Positive LOF Negative Contractions Vitals: 01/25/21 1624 06/15/204401/25/21 2328 01/26/21 0422 BP: 112/70 112/76 105/65 109/67 Pulse: 92 102 88 96 Resp: 16 Temp: 97.5 F (36.4 C) 97.4 F (36.3 C) 98.9 F (37.2 C) 97.7 F (36.5 C) TempSrc: Temporal Temporal Temporal Temporal SpO2: 97% 98% 97% 97% Weight: Height: FHT: 140, moderate variability Accels: absent Decels: absent Contractions: none Physical Exam: Gen: NAD HEENT: Normocephalic, Atraumatic, EOMI, MMM Resp: CTABL, no WRR Card: RRR S1S2 Abd: soft, gravid, NTND, no rebound, no guarding. negative fundal tenderness Ext: No LE edema, no calf tenderness or swelling Medications: Current Facility-Administered Medications Medication Dose Route Frequency Provider Last Rate Last Admin calcium carbonate (TUMS) chewable tablet 500 mg 500 mg Oral TID PRN Hollie W Faby, DO 500 mg at 01/25/21 0010 famotidine (PEPCID) tablet 20 mg 20 mg Oral BID Hollie W Faby, DO 20 mg at 01/25/212046 0.9 % sodium chloride infusion 25 mL Intravenous PRN Urmila Ottoker, DO ondansetron (ZOFRAN-ODT) disintegrating tablet 4 mg 4 mg Oral Q8H PRN Urmila Ottoker, DO Or ondansetron (ZOFRAN) injection 4 mg 4 mg Intravenous Q6H PRN Urmila Matthewserker, DO acetaminophen (TYLENOL) tablet 650 mg 650 mg Oral Q4H PRN Urmila Simental Smerker, DO vitamin 27-1 MG tablet 1 tablet 1 tablet Oral Daily Urmila C Smerker, DO 1 tablet at 01/25/21 0908 docusate sodium (COLACE) capsule 100 mg 100 mg Oral BID PRN Urmila Simental Smerker, DO 100 mg at 908 acyclovir (ZOVIRAX) capsule 400 mg 400 mg Oral TID Urmila Simental Smerker, DO 400 mg at 01/25/212046 Assessment/Plan: Raymond Brownlee is a 20 y.o. female 26w0d PPROM - Vital signs stable - BPP reassuring 01/24, JUAN 3.2 - s/p latency antibiotics HSV - Continue acyclovir prophylaxis IUP @ 26w0d - Dating by \ - Cephalic on 01/24 - Monitoring:NSTbid - Diet:General - BMZ x2 on 01/18- Further plan pending d/w attending. Spike Anderson MD 01/26/2021, 5:50 AM Associated attestation - Francesca López DO - 01/26/2021 1:53 PM EDT Attending Supervising Physician's Attestation Statement I performed a history and physical examination on the patient and discussed the management with theresident physician. I reviewed and agree with the findings and plan as documented in the note. Stable PPROM on hospital day #7. Continue current plan of care. I spent 15 minutes in the visit, with more than 50% of the total [id number] time of the visit in counseling/coordination of care. * Spike Anderson MD - 01/25/2021 6:03 AM EDT Images from the original note were not included. Maternal Medicine Service Resident Progress Note 01/25/2021 6:03 AM 01/19/2021 Hospital Day: 7 Raymond Brownlee, 20 y.o. 25w6d Patient has been seen and examined. Pt with no new complaints . Positive movement Negative vaginal bleeding Positive LOF Negative Contractions Vitals: 01/24/21 1628 01/24/21 2025 01/24/21 2331 01/25/21 0544 BP: 106/69 107/67 (!) 99/59 91/66 Pulse: 105 107 79 83 Resp: 16 16 16 16 Temp: 97.9 F (36.6 C) 98.6 F (37 C) 97.4 F (36.3 C) 97.8 F (36.6 C) TempSrc: Temporal Temporal Temporal Temporal SpO2: 97% 97% 97% 97% Weight: Height: FHT: 140, reassuring Contractions: none Physical Exam: Gen: NAD HEENT: Normocephalic, Atraumatic, EOMI, MMM Resp: CTABL, no WRR Card: RRR S1S2 Abd: soft, gravid, NTND, no rebound, no guarding. negative fundal tenderness Ext: No LE edema, no calf tenderness or swelling Medications: Current Facility-Administered Medications Medication Dose Route Frequency Provider Last Rate Last Admin clindamycin (CLEOCIN) capsule 300 mg 300 mg Oral 3 times per day Spike Anderson MD 300 mg at 01/24/21 2331 calcium carbonate (TUMS) chewable tablet 500 mg 500 mg Oral TID PRN Hollie Hobbs, DO 500 mg at 01/25/21 0010 famotidine (PEPCID) tablet 20 mg 20 mg Oral BID Hollie W Faby, DO 20 mg at 01/24/212106 0.9 % sodium chloride infusion 25 mL Intravenous PRN Urmila Ottoker, DO ondansetron (ZOFRAN-ODT) disintegrating tablet 4 mg 4 mg Oral Q8H PRN Urmila Ottoker, DO Or ondansetron (ZOFRAN) injection 4 mg 4 mg Intravenous Q6H PRN Urmila Simental Smerker, DO acetaminophen (TYLENOL) tablet 650 mg 650 mg Oral Q4H PRN Urmila Simental Smerker, DO vitamin 27-1 MG tablet 1 tablet 1 tablet Oral Daily Urmila C Smdidierker, DO 1 tablet at 01/24/21 0915 docusate sodium (COLACE) capsule 100 mg 100 mg Oral BID PRN Urmila Matthewserker, DO 100 mg at acyclovir (ZOVIRAX) capsule 400 mg 400 mg Oral TID Urmila Simental Smerker, DO 400 mg at 01/24/212106 Assessment/Plan: Raymond Brownlee is a 20 y.o. female 25w6d PPROM - VSS - BPP yesterday JUAN 3.2 w/ 2x2 pocket - Clindamycin 300mg q8hrs HSV - Continue acyclovir prophylaxis IUP @ 25w6d - Dating by /\ US - Cephalic on 01/24 - Monitoring:NSTbid - Diet:General - BMZ x2 on 01/18- Further plan pending d/w attending. Spike Anderson MD 01/25/2021, 6:03 AM Associated attestation - Rohit Stein MD - 01/25/2021 1:18 PM EDT I performed a history and physical examination on the patient and discussed the management with theresident physician. I reviewed and agree with the findings and plan as documented in their note today. 20 yr old at 25 6/7 GA with the following: PPrOM, stable and continued leakage. Understands the plan. Continued latency PO HSV continued acyclovir Prematurity s/p BMZ X2 cephalic on ultrasound she is a candidate for magnesium for neuroprotection if delivery planned or labor No chorioamnionitis or concerns for vaginal bleeding. Okay for expectant management I spent 15 minutes in the visit today on the floor reviewing the chart, discussing the case with the residency staff and nursing Rohit Stein MD MD * Monica, Spike Rios MD - 01/24/2021 6:00 AM EDT Images from the original note were not included. Maternal Medicine Service Resident Progress Note 01/24/2021 6:00 AM 01/19/2021 Hospital Day: 6 Raymond Brownlee, 20 y.o. 25w5d Patient has been seen and examined. Pt with no complaints overnight. Denies fevers or chills. Positive movement Negative vaginal bleeding Positive LOF Negative Contractions Vitals: 01/23/21 1551 01/23/21 1937 01/23/21 2336 01/24/21 0535 BP: 107/64 99/65 112/74 (!) 96/57 Pulse: 102 102 105 92 Resp: 18 18 18 16 Temp: 98 F (36.7 C) 98.1 F (36.7 C) 98.1 F (36.7 C) 98.3 F (36.8 C) TempSrc: Temporal Temporal Temporal Temporal SpO2: 97% 98% 98% 97% Weight: Height: FHT: 130, moderate variability Accels: absent Decels: variable Contractions: none Physical Exam: Gen: NAD HEENT: Normocephalic, Atraumatic, EOMI, MMM Resp: CTABL, no WRR Card: RRR S1S2 Abd: soft, gravid, NTND, no rebound, no guarding. negative fundal tenderness Ext: No LE edema, no calf tenderness or swelling Medications: Current Facility-Administered Medications Medication Dose Route Frequency Provider Last Rate Last Admin clindamycin (CLEOCIN) capsule 300 mg 300 mg Oral 3 times per day Spike Anderson MD 300 mg at 01/23/21 2336 calcium carbonate (TUMS) chewable tablet 500 mg 500 mg Oral TID PRN Hollie Rois Faby, DO 500 mg at 01/22/21 0024 famotidine (PEPCID) tablet 20 mg 20 mg Oral BID Hollie W Faby, DO 20 mg at 01/23/212058 0.9 % sodium chloride infusion 25 mL Intravenous PRN Urmila Ottoker, DO ondansetron (ZOFRAN-ODT) disintegrating tablet 4 mg 4 mg Oral Q8H PRN Urmila Ottoker, DO Or ondansetron (ZOFRAN) injection 4 mg 4 mg Intravenous Q6H PRN Urmila Simental Smerker, DO acetaminophen (TYLENOL) tablet 650 mg 650 mg Oral Q4H PRN Urmila Simental Smerker, DO vitamin 27-1 MG tablet 1 tablet 1 tablet Oral Daily Urmila C Smdidierker, DO 1 tablet at 01/23/21 0845 docusate sodium (COLACE) capsule 100 mg 100 mg Oral BID PRN Urmila Simental Smerker, DO 100 mg at acyclovir (ZOVIRAX) capsule 400 mg 400 mg Oral TID Urmila C Smerker, DO 400 mg at 01/23/212058 Assessment/Plan: Raymond Brownlee is a 20 y.o. female 25w5d PPROM - Continue clindamycin 300mg q8hrs - VSS - Continue inpatient monitoring - Discontinue BGT monitoring HSV - Continue acyclovir prophylaxis IUP @ 25w5d - Dating by /\ US - Cephalic on 01/19 - Monitoring:NSTbid - Diet:General - BMZ x2 on 6 Further plan pending d/w attending. Spike Anderson MD 01/24/2021, 6:00 AM Associated attestation - Francesca López DO - 01/24/2021 4:53 PM EDT Attending Supervising Physician's Attestation Statement I performed a history and physical examination on the patient and discussed the management with theresident physician. I reviewed and agree with the findings and plan as documented in the note. PPROM stable. Continue expectant management. I spent 15 minutes in the visit, with more than 50% of the total [id number]-[id number] time of the visit in counseling/coordination of care. * Spike Anderson MD - 01/23/2021 6:02 AM EDT Images from the original note were not included. Maternal Medicine Service Resident Progress Note 01/23/2021 6:03 AM 01/19/2021 Hospital Day: 5 Raymond Brownlee, 20 y.o. 25w4d Patient has been seen and examined. Pt with no complaints. Denies fevers, chills, CP, SOB. Positive movement Negative vaginal bleeding Positive LOF Negative Contractions Vitals: 01/22/21 1207 01/22/21 1509 01/22/21 1945 01/22/211999 BP: 102/65 101/67 102/61 Pulse: 96 102 100 99 Resp: 18 18 Temp: 98 F (36.7 C) 98.1 F (36.7 C) 98.4 F (36.9 C) TempSrc: Temporal Temporal Oral SpO2: 96% 97% Weight: Height: FHT: 130, reassuring Contractions: none Physical Exam: Gen: NAD HEENT: Normocephalic, Atraumatic, EOMI, MMM Resp: CTABL, no WRR Card: RRR S1S2 Abd: soft, gravid, NTND, no rebound, no guarding. negative fundal tenderness Ext: No LE edema, no calf tenderness or swelling Medications: Current Facility-Administered Medications Medication Dose Route Frequency Provider Last Rate Last Admin clindamycin (CLEOCIN) capsule 300 mg 300 mg Oral 3 times per day Spike Anderson MD 300 mg at 01/22/21 2248 calcium carbonate (TUMS) chewable tablet 500 mg 500 mg Oral TID PRN Hollie Hobbs, DO 500 mg at 01/22/21 0024 famotidine (PEPCID) tablet 20 mg 20 mg Oral BID Hollie Rios Faby, DO 20 mg at 01/22/212118 sodium chloride flush 0.9 % injection 10 mL 10 mL Intravenous 2 times per day Urmila Simental Smerker, DO 10 mL at 01/22/212203 sodium chloride flush 0.9 % injection 10 mL 10 mL Intravenous PRN Urmila Wright, DO 10 mL at 01/20/211804 0.9 % sodium chloride infusion 25 mL Intravenous PRN Urmila Wright, DO ondansetron (ZOFRAN-ODT) disintegrating tablet 4 mg 4 mg Oral Q8H PRN Urmila Ottoker, DO Or ondansetron (ZOFRAN) injection 4 mg 4 mg Intravenous Q6H PRN Urmila Simental Smerker, DO acetaminophen (TYLENOL) tablet 650 mg 650 mg Oral Q4H PRN Urmila Simental Smerker, DO vitamin 27-1 MG tablet 1 tablet 1 tablet Oral Daily Urmila Wright, DO 1 tablet at 01/22/21 0951 docusate sodium (COLACE) capsule 100 mg 100 mg Oral BID PRN Urmila Wright, DO 100 mg at acyclovir (ZOVIRAX) capsule 400 mg 400 mg Oral TID Urmila Wright, DO 400 mg at 01/22/212203 Assessment/Plan: Raymond Brownlee is a 20 y.o. female 25w4d PPROM - Continue clindamycin 300mg q8hrs - Continue expectant management - VSS - JUAN last 5.1 Anxiety - mood stable HSV - Continue acyclovir TID for prophylaxis IUP @ 25w4d - Dating by \ US - Cephalic on 01/19 - Monitoring:NSTbid - Diet:General - BMZ x2 on 01/18- Further plan pending d/w attending. Spike Anderson MD 01/23/2021, 6:03 AM Associated attestation - Haily Loepz MD - 01/23/2021 1:54 PM EDT Maternal Medicine Attending Attestation: I have performed a history and physical examination on the patient and discussed the management with the residents physician. I reviewed and agree with the findings and plan as documented in the note. 20 y.o. at 25w4d with PPROM The patient denies nausea, vomiting, vaginal bleeding, contractions, and/or abdominal pain. She also denies blurring of vision, visual disturbances, headaches, and /or epigastric pain. She reports the fetus to be active. Vitals: 01/23/21 0000 01/23/21 0615 01/23/21 0757 01/23/21 1154 BP: 101/65 108/64 Pulse: 95 98 Resp: 18 18 Temp: 98.5 F (36.9 C) 98.4 F (36.9 C) 98.2 F (36.8 C) TempSrc: Oral Oral Temporal Temporal SpO2: 97% 97% Weight: Height: Plan: Aim at delivery at 34 weeks or earlier if bleeding, infection, labor, and/or abnormal FHR. Expectant management I spent 15 minutes at the visit, with more than 50% of the total face to face time of the visit in counseling and coordination of care. Haily Lopez MD * Simon Green MD - 01/22/2021 6:37 AM EDT Images from the original note were not included. Maternal Medicine Service Resident Progress Note 01/22/2021 6:38 AM 01/19/2021 Hospital Day: 4 Raymond Brownlee, 20 y.o. 25w3d Patient has been seen and examined. Pt without complaints today. Positive movement Negative vaginal bleeding Positive LOF Negative Contractions Vitals: 01/21/21 0827 01/21/21 1158 01/21/21 1639 01/21/21 202 BP: (!) 94/54 (!) 94/55 (!) 89/52 102/60 Pulse: 76 78 86 85 Resp: 16 20 20 18 Temp: 97.3 F (36.3 C) 98.6 F (37 C) 97.5 F (36.4 C) 97.6 F (36.4 C) TempSrc: Temporal Temporal Temporal Temporal SpO2: 96% 95% 96% 97% Weight: Height: FHT: 140, moderate variability Accels: present Decels: absent Contractions: none Physical Exam: Gen: NAD HEENT: Normocephalic, Atraumatic, EOMI, MMM Resp: CTABL, no WRR Card: RRR S1S2 Abd: soft, gravid, NTND, no rebound, no guarding. negative fundal tenderness Ext: No LE edema, no calf tenderness or swelling Medications: Current Facility-Administered Medications Medication Dose Route Frequency Provider Last Rate Last Admin clindamycin (CLEOCIN) capsule 300 mg 300 mg Oral 3 times per day Spike Anderson MD 300 mg at 01/22/21 0024 calcium carbonate (TUMS) chewable tablet 500 mg 500 mg Oral TID PRN Hollie Hobbs, DO 500 mg at 01/22/21 0024 famotidine (PEPCID) tablet 20 mg 20 mg Oral BID Hollie Rios Faby, DO 20 mg at 01/21/21 1744 sodium chloride flush 0.9 % injection 10 mL 10 mL Intravenous 2 times per day Urmila Wright, DO 10 mL at 01/21/21 203 sodium chloride flush 0.9 % injection 10 mL 10 mL Intravenous PRN Urmila Ottoker, DO 10 mL at 01/20/21 1805 0.9 % sodium chloride infusion 25 mL Intravenous PRN Urmila Ottoker, DO ondansetron (ZOFRAN-ODT) disintegrating tablet 4 mg 4 mg Oral Q8H PRN Urmila Simental Smdidierker, DO Or ondansetron (ZOFRAN) injection 4 mg 4 mg Intravenous Q6H PRN Urmila Simental Smerker, DO acetaminophen (TYLENOL) tablet 650 mg 650 mg Oral Q4H PRN Urmila Ottoker, DO vitamin 27-1 MG tablet 1 tablet 1 tablet Oral Daily Urmila Wright, DO 1 tablet at 01/21/21 0916 docusate sodium (COLACE) capsule 100 mg 100 mg Oral BID PRN Urmila Wright, DO 100 mg at acyclovir (ZOVIRAX) capsule 400 mg 400 mg Oral TID Urmila Wright, DO 400 mg at 01/21/212029 Assessment/Plan: Raymond Brownlee is a 20 y.o. female 25w3d PPROM - Continue clindamycin 300mg q8h for latency - Afebrile, comfortable - JUAN 5.1 on last growth Anxiety - No medications - CLP consult if needed clubfoot - Not visualized on most recent growth US HSV - Acyclovir TID ppx IUP @ 25w3d - Dating by \ US - Cephalic on 01/19 - Monitoring:NSTbid - Diet:General - BMZ x2 on 01/18- Further plan pending d/w attending. Simon Green MD 01/22/2021, 6:38 AM Associated attestation - Haily Lopez MD - 01/22/2021 12:24 PM EDT Maternal Medicine Attending Attestation: I have performed a history and physical examination on the patient and discussed the management with the residents physician. I reviewed and agree with the findings and plan as documented in the note. 20 y.o. at 25w3d with PPROM. The patient denies nausea, vomiting, vaginal bleeding, leakageof fluid, contractions, and/or abdominal pain. She also denies blurring of vision, visual disturbances, headaches, and /or epigastric pain. She reports the fetus to be active. Vitals: 01/21/21 1639 01/21/214 01/22/21 0733 01/22/21 1207 BP: (!) 89/52 102/60 93/63 102/65 Pulse: 86 85 86 96 Resp: Temp: 97.5 F (36.4 C) 97.6 F (36.4 C) 98.3 F (36.8 C) 98 F (36.7 C) TempSrc: Temporal Temporal Temporal Temporal SpO2: 96% 97% 96% 96% Weight: Height: Plan: Expectant management. I spent 15 minutes at the visit, with more than 50% of the total face to face time of the visit in counseling and coordination of care. Haily Lopez MD * Erin Mejia DTR - 01/21/2021 4:07 PM EDT Nutrition rescreen completed. Chart reviewed. Patient to be monitored and followed by the diet flight readiness technician. * Spike Anderson MD - 01/21/2021 5:46 AM EDT Images from the original note were not included. Maternal Medicine Service Resident Progress Note 01/21/2021 5:47 AM 01/19/2021 Hospital Day: 3 Raymond Brownlee, 20 y.o. 25w2d Patient has been seen and examined. Pt with no complaints overnight, doing well. Positive movement Negative vaginal bleeding Positive LOF Negative Contractions Vitals: 01/20/21 0833 01/20/21 1156 01/20/21 1611 01/20/212 BP: (!) 101/57 (!) 103/56 (!) 103/58 94/62 Pulse: 86 71 94 82 Resp: 16 Temp: 97.2 F (36.2 C) 98.2 F (36.8 C) 97.4 F (36.3 C) 98.3 F (36.8 C) TempSrc: Temporal Temporal Temporal Temporal SpO2: 95% 96% 97% 97% Weight: Height: FHT: 120, reassuring Physical Exam: Gen: NAD HEENT: Normocephalic, Atraumatic, EOMI, MMM Resp: CTABL, no WRR Card: RRR S1S2 Abd: soft, gravid, NTND, no rebound, no guarding. negative fundal tenderness Ext: No LE edema, no calf tenderness or swelling Medications: Current Facility-Administered Medications Medication Dose Route Frequency Provider Last Rate Last Admin sodium chloride flush 0.9 % injection 10 mL 10 mL Intravenous 2 times per day Urmila C Smerker, DO 10 mL at 01/20/212136 sodium chloride flush 0.9 % injection 10 mL 10 mL Intravenous PRN Urmila C Smerker, DO 10 mL at 01/20/21 180 0.9 % sodium chloride infusion 25 mL Intravenous PRN Urmila C Smerker, DO ondansetron (ZOFRAN-ODT) disintegrating tablet 4 mg 4 mg Oral Q8H PRN Urmila C Smerker, DO Or ondansetron (ZOFRAN) injection 4 mg 4 mg Intravenous Q6H PRN Urmila C Smerker, DO acetaminophen (TYLENOL) tablet 650 mg 650 mg Oral Q4H PRN Urmila C Smerker, DO vitamin 27-1 MG tablet 1 tablet 1 tablet Oral Daily Urmila C Smerker, DO 1 tablet at 01/20/21 09 docusate sodium (COLACE) capsule 100 mg 100 mg Oral BID PRN Urmila C Smerker, DO acyclovir (ZOVIRAX) capsule 400 mg 400 mg Oral TID Urmila C Smerker, DO 400 mg at 01/20/212135 Assessment/Plan: Raymond Brownlee is a 20 y.o. female 25w2d PPROM - Continue clindamycin 300mg q8hrs for latency antibiotics - Growth 737g, 45%ile, JUAN 5.1 Anxiety - No antibiotics Clubfoot - Not visualized on recent growth scan HSV - Continue acyclovir TID for prophylaxis IUP @ 25w2d - Dating by \ US - Cephalic on 01/19 - Monitoring:NSTbid - Diet:General - BMZ x2 on 01/18- Further plan pending d/w attending. Spike Anderson MD 01/21/2021, 5:47 AM Associated attestation - Haily Lopez MD - 01/21/2021 2:52 PM EDT Maternal Medicine Attending Attestation: I have performed a history and physical examination on the patient and discussed the management with the residents physician. I reviewed and agree with the findings and plan as documented in the note. 20 y.o. at 25w2d with PPROM The patient denies nausea, vomiting, vaginal bleeding, leakage of fluid, contractions, and/or abdominal pain. She also denies blurring of vision, visual disturbances, headaches, and /or epigastric pain. She reports the fetus to be active. Vitals: 01/20/21 2130 01/20/21 2135 01/21/21 0827 01/21/21 1158 BP: (!) 94/54 (!) 94/55 Pulse: 82 85 76 78 Resp: 16 20 Temp: 97.3 F (36.3 C) 98.6 F (37 C) TempSrc: Temporal Temporal SpO2: 95% 96% 95% Weight: Height: Plan: Expectant management Instructions were given. I spent 15 minutes at the visit, with more than 50% of the total face to face time of the visit in counseling and coordination of care. Haily Lopez MD * Spike Anderson MD - 01/20/2021 6:10 AM EDT Images from the original note were not included. Maternal Medicine Service Resident Progress Note 01/20/2021 6:10 AM 01/19/2021 Hospital Day: 2 Raymond Brownlee, 20 y.o. 25w1d Patient has been seen and examined. Pt complains of some continued leaking toay Positive movement Negative vaginal bleeding Positive LOF Negative Contractions Vitals: 01/19/21 0245 01/19/21 1627 01/19/21 1934 BP: 108/65 99/67 Pulse: 78 69 Resp: 16 17 Temp: 98.3 F (36.8 C) 98.5 F (36.9 C) TempSrc: Temporal Tympanic SpO2: 97% Weight: 180 lb (81.6 kg) Height: 5' 8 (1.727 m) FHT: 130 and reassuring Physical Exam: Gen: NAD HEENT: Normocephalic, Atraumatic, EOMI, MMM Resp: CTABL, no WRR Card: RRR S1S2 Abd: soft, gravid, NTND, no rebound, no guarding. negative fundal tenderness Ext: No LE edema, no calf tenderness or swelling Medications: Current Facility-Administered Medications Medication Dose Route Frequency Provider Last Rate Last Admin sodium chloride flush 0.9 % injection 10 mL 10 mL Intravenous 2 times per day Urmila Wright, DO 10 mL at 01/19/21 1908 sodium chloride flush 0.9 % injection 10 mL 10 mL Intravenous PRN Urmila Wright, DO 0.9 % sodium chloride infusion 25 mL Intravenous PRN Urmila Wright, DO ondansetron (ZOFRAN-ODT) disintegrating tablet 4 mg 4 mg Oral Q8H PRN Urmila Wright, DO Or ondansetron (ZOFRAN) injection 4 mg 4 mg Intravenous Q6H PRN Urmila Wright, DO acetaminophen (TYLENOL) tablet 650 mg 650 mg Oral Q4H PRN Urmila Wright, DO vitamin 27-1 MG tablet 1 tablet 1 tablet Oral Daily Urmila Wright, DO docusate sodium (COLACE) capsule 100 mg 100 mg Oral BID PRN Urmila Wright, DO clindamycin (CLEOCIN) 900 mg in dextrose 5 % 50 mL IVPB 900 mg Intravenous Q8H Urmila Wright, DOStopped at 01/20/21 0305 azithromycin (ZITHROMAX) 500 mg in dextrose 5 % 250 mL IVPB (add-vantage) 500 mg Intravenous Q24H Urmila Wright, DO Stopped at 01/20/21 0305 acyclovir (ZOVIRAX) capsule 400 mg 400 mg Oral TID Urmila Wright, DO 400 mg at 01/19/212031 Assessment/Plan: Raymond Brownlee is a 20 y.o. female 25w1d PPROM - Continue latency clindamycin, gentamicin, azithromycin - Growth 737g, 45%ile, JUAN 5.1 - GBS positive, sensitives pending Anxiety - No medications Left Clubfoot - Noted on initial anatomy US - Unable to visualize on US 01/19 IUP @ 25w1d - Dating by \ US - Cephalic on 01/19 - Monitoring:NSTbid - Diet:General - BMZ x2 on 01/18- Further plan pending d/w attending. Spike Anderson MD 01/20/2021, 6:10 AM Associated attestation - Francesca López DO - 01/20/2021 1:17 PM EDT Attending Supervising Physician's Attestation Statement I performed a history and physical examination on the patient and discussed the management with theresident physician. I reviewed and agree with the findings and plan as documented in the note. Stable PPROM. Continue expectant management. Left clubbed foot on prior US, evaluate after . I spent 15 minutes in the visit, with more than 50% of the total [id number] time of the visit in counseling/coordination of care. documented in this [facility] Work Phone: [phone] 313-775605-14-2021 NoteHNO ID: [id number] Author: Ngoc Elizabeth DO Service: Obstetrics Author Type: Resident Type: Progress Notes Filed: 12/24/2020 8:54 PM Note Text: Attestation signed by Shima Petty MD at 12/25/2020 5:01 AM Attending Note On December 24, 2020, I evaluated the patient and personally participated in the springer components. I agree with the resident's findings and plan as documented and have discussed the case and management of the patient's care with the resident. Plan of care discussed with: Patient and RN. Signature: Shima Petty MD Date: December 25, 2020 Time: 5:00 AM OBSTETRICS OB ED PROGRESS NOTE SERVICE DATE: December 24, 2020 SERVICE TIME: 8:28 PM Subjective Patient's stated reason for arrival: no amniotic fluid CHIEF COMPLAINT: Rupture of membranes HISTORY OF THE PRESENT ILLNESS: The patient is a 20 year old female, , who is at 21w2d with an LOC of 05/04/2021, by Patient Reported dating method. Patient is here complaining of possible leakage of fluid over the past 2 months. She is a patient of [facility] is [facility] and was instructed to follow-up with MFM for low fluid noticed on her anatomy US. A referral was placed to [facility] ([facility]) but the patient did not go to the appointment because she didn't know about it. She called the office this afternoon about missing the MFM appointment and the on-call nurse told her to come to the [facility] for evaluation due to concern for possible leakage of fluid. She says that she has had a few episodes of possible leakage of fluid over the past two months. She has been evaluated at outside ED's and was told her membranes were intact and that she was having urinary incontinence. She denies continued leakage of fluid, fever, chills, cramping, vaginal bleeding, or fatigue. She does report an episode of dampness yesterday but not today. She is accompanied by her mother. PAST MEDICAL HISTORY Diagnosis Date - H/O sickle cell trait father has trait - Herpes simplex virus (HSV) infection 2020 none current per patient PAST SURGICAL HISTORY Procedure Laterality Date - REMOVAL GALLBLADDER 12/20/2016 FAMILY HISTORY Problem Relation Age of Onset - Alcohol/Drug Mother - other (Mental disorder unspecific) Mother - other (ADHD) Sister - other (ADHD) Brother Obstetric History T1 L1 SAB0 TAB0 Ectopic0 Multiple0 Live Births1 REVIEW OF SYSTEMS: The remainder of the review of systems is negative. Objective LAST VITALS: Pulse BP Resp O2 Sat Temp 85 98/54 17 98 % 37.2 ?C (99 ?F) Pain Score Trend (last 4 values) 12/24/20180912/24/201909 Pain Level: 0 0 HT/WT/BMI: Height Weight BMI 152.4 cm (5') 83.9 kg (185 lb) 36.13 PHYSICAL EXAM: General: WD, WN, comfortable Abdomen: soft, nontender, no masses Uterus: soft, NT Extremities: no edema Cervical Exam: Closed, white physiologic discharge present SSE: Fern: neg ; Nitrazine: neg (pH less than 7) ; No pooling Fern Reference Range Negative for amniotic fluid Nitrazine Reference Range Normal vaginal pH is acidic (below 7.0) with pH above 7.0 (basic) indicating the presence of amniotic fluid. Lab Address: [place] [address] Ob Triage [address] [facility] [address] Dept: [phone] CERVICAL EXAM: Dilation: closed MONITORING/ASSESSMENT: heart rate present and appropriate LABS Diagnostic tests reviewed for today's visit: Most recent labs Assessment/Plan 20 year old EGA:21w2d. Active Hospital Problems Diagnosis Date Noted - No leakage of amniotic fluid into vagina 12/24/2020 Overview Note: - Complains of intermittent vaginal fluid over past 2 months - Has had multiple ED evaluations and was told membranes intact - Complains of leakage and dampness yesterday, none today - SSE: neg nitrazine, neg pooling, neg ferning - BV/Trich, GC/CT pending - will treat accordingly - Precautions reviewed thoroughly - Oligohydramnios in second trimester 12/24/2020 Overview Note: - Low amniotic fluid noted on anatomy scan at 19 weeks, referred to [facility] ([facility]) but missed appt - Instructed to come to [facility] for evaluation given she is complaining of leakage of fluid - Amniotic membranes intact on exam - Instructed patient to call her [facility] office on Sunday to facilitate rescheduling MFM appt [facility] - Offered patient to f/u with [facility] MFM, pt to call office for appt if that's what she chooses - No bedside US completed today given amniotic fluid was intact Discussed with Dr. Mendez SIGNATURE: Ngoc Elizabeth DO PATIENT NAME: Raymond Brownlee DATE: December 24, 2020 TIME: 8:03 PM PAGER/CONTACT #: [id number]05-14-[facility]21 History of Past illness Narrative* Problem Noted Date Resolved Date No leakage of amniotic fluid into vagina 021 10/07/2021 Overview: - Complains of intermittent vaginal fluid over past 2 months - Has had multiple ED evaluations and was told membranes intact - Complains of leakage and dampness yesterday, none today - SSE: neg nitrazine, neg pooling, neg ferning - BV/Trich, GC/CT pending - will treat accordingly - Precautions reviewed thoroughly Oligohydramnios in second trimester 12/24/2020 10/07/2021 Overview: - Per patient, low amniotic fluid noted on anatomy scan at 19 weeks, referred to [facility] ([facility]) but missed appt - Instructed to come to [facility] for evaluation given she is complaining of leakage of fluid - Amniotic membranes intact on exam - Instructed patient to call her [facility] office on Sunday to facilitate rescheduling MFM appt [facility] - Offered patient to f/u with [facility] MFM, pt to call office for appt if that's what she chooses - No bedside US completed today given amniotic fluid was intact Encounter for supervision of normal in teen primigravida, antepartum 11/09/2016 08/03/2017 Overview: 11/09/2016Patient is 16 years old and 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 The FOB is 18 years old and is aware she is but not sure how much he wants to be involved. She is planning on keeping baby. [facility] information and Care Center info given to patient. TKRN documented as of this encounter (statuses as of 11/10/2021) [facility]05-14-2021 History of Past illness Narrative* Problem Noted Date Resolved Date No leakage of amniotic fluid into vagina 021 10/07/2021 Overview: - Complains of intermittent vaginal fluid over past 2 months - Has had multiple ED evaluations and was told membranes intact - Complains of leakage and dampness yesterday, none today - SSE: neg nitrazine, neg pooling, neg ferning - BV/Trich, GC/CT pending - will treat accordingly - Precautions reviewed thoroughly Oligohydramnios in second trimester 12/24/2020 10/07/2021 Overview: - Per patient, low amniotic fluid noted on anatomy scan at 19 weeks, referred to [facility] ([facility]) but missed appt - Instructed to come to [facility] for evaluation given she is complaining of leakage of fluid - Amniotic membranes intact on exam - Instructed patient to call her [facility] office on Sunday to facilitate rescheduling MFM appt [facility] - Offered patient to f/u with [facility] MFM, pt to call office for appt if that's what she chooses - No bedside US completed today given amniotic fluid was intact Encounter for supervision of normal in teen primigravida, antepartum 11/09/2016 08/03/2017 Overview: 11/09/2016Patient is 16 years old 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 The FOB is 18 years old and is aware she is but not sure how much he wants to be involved. She is planning on keeping baby. [facility] information and Care Center info given to patient. TKRN documented as of this encounter (statuses as of 11/30/2021) [facility]05-14-2021 History of Past illness Narrative* Problem Noted Date Resolved Date No leakage of amniotic fluid into vagina 021 10/07/2021 Overview: - Complains of intermittent vaginal fluid over past 2 months - Has had multiple ED evaluations and was told membranes intact - Complains of leakage and dampness yesterday, none today - SSE: neg nitrazine, neg pooling, neg ferning - BV/Trich, GC/CT pending - will treat accordingly - Precautions reviewed thoroughly Oligohydramnios in second trimester 12/24/2020 10/07/2021 Overview: - Per patient, low amniotic fluid noted on anatomy scan at 19 weeks, referred to [facility] ([facility]) but missed appt - Instructed to come to [facility] for evaluation given she is complaining of leakage of fluid - Amniotic membranes intact on exam - Instructed patient to call her [facility] office on Sunday to facilitate rescheduling MFM appt [facility] - Offered patient to f/u with [facility] MFM, pt to call office for appt if that's what she chooses - No bedside US completed today given amniotic fluid was intact Encounter for supervision of normal in teen primigravida, antepartum 11/09/2016 08/03/2017 Overview: 11/09/2016Patient is 16 years old 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 The FOB is 18 years old and is aware she is but not sure how much he wants to be involved. She is planning on keeping baby. [facility] information and Care Center info given to patient. TKRN documented as of this encounter (statuses as of 12/02/2021) [facility]05-14-2021 History of Past illness Narrative* Problem Noted Date Resolved Date No leakage of amniotic fluid into vagina 021 10/07/2021 Overview: - Complains of intermittent vaginal fluid over past 2 months - Has had multiple ED evaluations and was told membranes intact - Complains of leakage and dampness yesterday, none today - SSE: neg nitrazine, neg pooling, neg ferning - BV/Trich, GC/CT pending - will treat accordingly - Precautions reviewed thoroughly Oligohydramnios in second trimester 12/24/2020 10/07/2021 Overview: - Per patient, low amniotic fluid noted on anatomy scan at 19 weeks, referred to [facility] ([facility]) but missed appt - Instructed to come to [facility] for evaluation given she is complaining of leakage of fluid - Amniotic membranes intact on exam - Instructed patient to call her [facility] office on Sunday to facilitate rescheduling MFM appt [facility] - Offered patient to f/u with [facility] MFM, pt to call office for appt if that's what she chooses - No bedside US completed today given amniotic fluid was intact Encounter for supervision of normal in teen primigravida, antepartum 11/09/2016 08/03/2017 Overview: 11/09/2016Patient is 16 years old and 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 The FOB is 18 years old and is aware she is but not sure how much he wants to be involved. She is planning on keeping baby. [facility] information and Care Center info given to patient. TKRN documented as of this encounter (statuses as of 12/28/2021) [facility]05-14-[facility]21 History of Past illness Narrative* Problem Noted Date Resolved Date No leakage of amniotic fluid into vagina 021 10/07/2021 Overview: - Complains of intermittent vaginal fluid over past 2 months - Has had multiple ED evaluations and was told membranes intact - Complains of leakage and dampness yesterday, none today - SSE: neg nitrazine, neg pooling, neg ferning - BV/Trich, GC/CT pending - will treat accordingly - Precautions reviewed thoroughly Oligohydramnios in second trimester 12/24/2020 10/07/2021 Overview: - Per patient, low amniotic fluid noted on anatomy scan at 19 weeks, referred to [facility] ([facility]) but missed appt - Instructed to come to [facility] for evaluation given she is complaining of leakage of fluid - Amniotic membranes intact on exam - Instructed patient to call her [facility] office on Sunday to facilitate rescheduling MFM appt [facility] - Offered patient to f/u with [facility] MFM, pt to call office for appt if that's what she chooses - No bedside US completed today given amniotic fluid was intact Encounter for supervision of normal in teen primigravida, antepartum 11/09/2016 08/03/2017 Overview: 11/09/2016Patient is 16 years old 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 The FOB is 18 years old and is aware she is but not sure how much he wants to be involved. She is planning on keeping baby. [facility] information and Care Center info given to patient. TKRN documented as of this encounter (statuses as of 01/26/2022) [facility]05-14-[facility] History of Past illness Narrative* Problem Noted Date Resolved Date No leakage of amniotic fluid into vagina 021 10/07/2021 Overview: - Complains of intermittent vaginal fluid over past 2 months - Has had multiple ED evaluations and was told membranes intact - Complains of leakage and dampness yesterday, none today - SSE: neg nitrazine, neg pooling, neg ferning - BV/Trich, GC/CT pending - will treat accordingly - Precautions reviewed thoroughly Oligohydramnios in second trimester 12/24/2020 10/07/2021 Overview: - Per patient, low amniotic fluid noted on anatomy scan at 19 weeks, referred to [facility] ([facility]) but missed appt - Instructed to come to [facility] for evaluation given she is complaining of leakage of fluid - Amniotic membranes intact on exam - Instructed patient to call her [facility] office on Sunday to facilitate rescheduling M appt [facility] - Offered patient to f/u with [facility] MFM, pt to call office for appt if that's what she chooses - No bedside US completed today given amniotic fluid was intact Encounter for supervision of normal in teen primigravida, antepartum 11/09/2016 08/03/2017 Overview: 11/09/2016Patient is 16 years old 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 The FOB is 18 years old and is aware she is but not sure how much he wants to be involved. She is planning on keeping baby. [facility] information and Care Center info given to patient. TKRN documented as of this encounter (statuses as of 02/22/2022) [facility]05-14-[facility] History of Past illness Narrative* Problem Noted Date Resolved Date No leakage of amniotic fluid into vagina 021 10/07/2021 Overview: - Complains of intermittent vaginal fluid over past 2 months - Has had multiple ED evaluations and was told membranes intact - Complains of leakage and dampness yesterday, none today - SSE: neg nitrazine, neg pooling, neg ferning - BV/Trich, GC/CT pending - will treat accordingly - Precautions reviewed thoroughly Oligohydramnios in second trimester 12/24/2020 10/07/2021 Overview: - Per patient, low amniotic fluid noted on anatomy scan at 19 weeks, referred to [facility] ([facility]) but missed appt - Instructed to come to [facility] for evaluation given she is complaining of leakage of fluid - Amniotic membranes intact on exam - Instructed patient to call her [facility] office on Sunday to facilitate rescheduling [facility] appt [facility] - Offered patient to f/u with [facility] MFM, pt to call office for appt if that's what she chooses - No bedside US completed today given amniotic fluid was intact Encounter for supervision of normal in teen primigravida, antepartum 11/09/2016 08/03/2017 Overview: 11/09/2016Patient is 16 years old and 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 The FOB is 18 years old and is aware she is but not sure how much he wants to be involved. She is planning on keeping baby. [facility] information and Care Center info given to patient. TKRN documented as of this encounter (statuses as of 02/22/2022) [facility]05-14-[facility] History of Past illness Narrative* Problem Noted Date Resolved Date No leakage of amniotic fluid into vagina 021 10/07/2021 Overview: - Complains of intermittent vaginal fluid over past 2 months - Has had multiple ED evaluations and was told membranes intact - Complains of leakage and dampness yesterday, none today - SSE: neg nitrazine, neg pooling, neg ferning - BV/Trich, GC/CT pending - will treat accordingly - Precautions reviewed thoroughly Oligohydramnios in second trimester 12/24/2020 10/07/2021 Overview: - Per patient, low amniotic fluid noted on anatomy scan at 19 weeks, referred to [facility] ([facility]) but missed appt - Instructed to come to [facility] for evaluation given she is complaining of leakage of fluid - Amniotic membranes intact on exam - Instructed patient to call her [facility] office on Sunday to facilitate rescheduling MFM appt [facility] - Offered patient to f/u with [facility] MFM, pt to call office for appt if that's what she chooses - No bedside US completed today given amniotic fluid was intact Encounter for supervision of normal in teen primigravida, antepartum 11/09/2016 08/03/2017 Overview: 11/09/2016Patient is 16 years old and 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 The FOB is 18 years old and is aware she is but not sure how much he wants to be involved. She is planning on keeping baby. [facility] information and Care Center info given to patient. TKRN documented as of this encounter (statuses as of 03/01/2022) [facility]-14[facility] History of Past illness Narrative* Problem Noted Date Resolved Date No leakage of amniotic fluid into vagina 021 10/07/2021 Overview: - Complains of intermittent vaginal fluid over past 2 months - Has had multiple ED evaluations and was told membranes intact - Complains of leakage and dampness yesterday, none today - SSE: neg nitrazine, neg pooling, neg ferning - BV/Trich, GC/CT pending - will treat accordingly - Precautions reviewed thoroughly Oligohydramnios in second trimester 12/24/2020 10/07/2021 Overview: - Per patient, low amniotic fluid noted on anatomy scan at 19 weeks, referred to [facility] ([facility]) but missed appt - Instructed to come to [facility] for evaluation given she is complaining of leakage of fluid - Amniotic membranes intact on exam - Instructed patient to call her [facility] office on Sunday to facilitate rescheduling MFM appt [facility] - Offered patient to f/u with [facility] MFM, pt to call office for appt if that's what she chooses - No bedside US completed today given amniotic fluid was intact Encounter for supervision of normal in teen primigravida, antepartum 11/09/2016 08/03/2017 Overview: 11/09/2016Patient is 16 years old 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 The FOB is 18 years old and is aware she is but not sure how much he wants to be involved. She is planning on keeping baby. [facility] information and Care Center info given to patient. TKRN documented as of this encounter (statuses as of 03/14/2022) [facility]-14[facility] History of Past illness Narrative* Problem Noted Date Resolved Date No leakage of amniotic fluid into vagina 021 10/07/2021 Overview: - Complains of intermittent vaginal fluid over past 2 months - Has had multiple ED evaluations and was told membranes intact - Complains of leakage and dampness yesterday, none today - SSE: neg nitrazine, neg pooling, neg ferning - BV/Trich, GC/CT pending - will treat accordingly - Precautions reviewed thoroughly Oligohydramnios in second trimester 12/24/2020 10/07/2021 Overview: - Per patient, low amniotic fluid noted on anatomy scan at 19 weeks, referred to [facility] ([facility]) but missed appt - Instructed to come to [facility] for evaluation given she is complaining of leakage of fluid - Amniotic membranes intact on exam - Instructed patient to call her [facility] office on Sunday to facilitate rescheduling MFM appt [facility] - Offered patient to f/u with [facility] MFM, pt to call office for appt if that's what she chooses - No bedside US completed today given amniotic fluid was intact Encounter for supervision of normal in teen primigravida, antepartum 11/09/2016 08/03/2017 Overview: 11/09/2016Patient is 16 years old 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 The FOB is 18 years old and is aware she is but not sure how much he wants to be involved. She is planning on keeping baby. [facility] information and Care Center info given to patient. TKRN documented as of this encounter (statuses as of 03/15/2022) [facility] History of Past illness Narrative* Problem Noted Date Resolved Date No leakage of amniotic fluid into vagina 021 10/07/2021 Overview: - Complains of intermittent vaginal fluid over past 2 months - Has had multiple ED evaluations and was told membranes intact - Complains of leakage and dampness yesterday, none today - SSE: neg nitrazine, neg pooling, neg ferning - BV/Trich, GC/CT pending - will treat accordingly - Precautions reviewed thoroughly Oligohydramnios in second trimester 12/24/2020 10/07/2021 Overview: - Per patient, low amniotic fluid noted on anatomy scan at 19 weeks, referred to [facility] ([facility]) but missed appt - Instructed to come to [facility] for evaluation given she is complaining of leakage of fluid - Amniotic membranes intact on exam - Instructed patient to call her [facility] office on Sunday to facilitate rescheduling MFM appt [facility] - Offered patient to f/u with [facility] MFM, pt to call office for appt if that's what she chooses - No bedside US completed today given amniotic fluid was intact Encounter for supervision of normal in teen primigravida, antepartum 11/09/2016 08/03/2017 Overview: 11/09/2016Patient is 16 years old and is a sarah at [employer]. The FOB is 18 years old and is aware she is but not sure how much he wants to be involved. She is planning on keeping baby. [facility] information and Care Center info given to patient. TKRN documented as of this encounter (statuses as of 03/21/2022) [facility] History of Past illness Narrative* Problem Noted Date Resolved Date No leakage of amniotic fluid into vagina 021 10/07/2021 Overview: - Complains of intermittent vaginal fluid over past 2 months - Has had multiple ED evaluations and was told membranes intact - Complains of leakage and dampness yesterday, none today - SSE: neg nitrazine, neg pooling, neg ferning - BV/Trich, GC/CT pending - will treat accordingly - Precautions reviewed thoroughly Oligohydramnios in second trimester 12/24/2020 10/07/2021 Overview: - Per patient, low amniotic fluid noted on anatomy scan at 19 weeks, referred to [facility] ([facility]) but missed appt - Instructed to come to [facility] for evaluation given she is complaining of leakage of fluid - Amniotic membranes intact on exam - Instructed patient to call her [facility] office on Sunday to facilitate rescheduling [facility] appt [facility] - Offered patient to f/u with [facility], pt to call office for appt if that's what she chooses - No bedside US completed today given amniotic fluid was intact Encounter for supervision of normal in teen primigravida, antepartum 11/09/2016 08/03/2017 Overview: 11/09/2016Patient is 16 years old and 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 The FOB is 18 years old and is aware she is but not sure how much he wants to be involved. She is planning on keeping baby. [facility] information and Care Center info given to patient. TKRN documented as of this encounter (statuses as of 03/22/2022) [facility] History of Past illness Narrative* Problem Noted Date Resolved Date No leakage of amniotic fluid into vagina 021 10/07/2021 Overview: - Complains of intermittent vaginal fluid over past 2 months - Has had multiple ED evaluations and was told membranes intact - Complains of leakage and dampness yesterday, none today - SSE: neg nitrazine, neg pooling, neg ferning - BV/Trich, GC/CT pending - will treat accordingly - Precautions reviewed thoroughly Oligohydramnios in second trimester 12/24/2020 10/07/2021 Overview: - Per patient, low amniotic fluid noted on anatomy scan at 19 weeks, referred to [facility] ([facility]) but missed appt - Instructed to come to [facility] for evaluation given she is complaining of leakage of fluid - Amniotic membranes intact on exam - Instructed patient to call her [facility] office on Sunday to facilitate rescheduling [facility] appt [facility] - Offered patient to f/u with [facility]FM, pt to call office for appt if that's what she chooses - No bedside US completed today given amniotic fluid was intact Encounter for supervision of normal in teen primigravida, antepartum 11/09/2016 08/03/2017 Overview: 11/09/2016Patient is 16 years old and 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 The FOB is 18 years old and is aware she is but not sure how much he wants to be involved. She is planning on keeping baby. [facility] information and Care Center info given to patient. TKRN documented as of this encounter (statuses as of 03/25/2022) [facility] History of Past illness Narrative* Problem Noted Date Resolved Date No leakage of amniotic fluid into vagina 021 10/07/2021 Overview: - Complains of intermittent vaginal fluid over past 2 months - Has had multiple ED evaluations and was told membranes intact - Complains of leakage and dampness yesterday, none today - SSE: neg nitrazine, neg pooling, neg ferning - BV/Trich, GC/CT pending - will treat accordingly - Precautions reviewed thoroughly Oligohydramnios in second trimester 12/24/2020 10/07/2021 Overview: - Per patient, low amniotic fluid noted on anatomy scan at 19 weeks, referred to [facility] ([facility]) but missed appt - Instructed to come to [facility] for evaluation given she is complaining of leakage of fluid - Amniotic membranes intact on exam - Instructed patient to call her [facility] office on Sunday to facilitate rescheduling [facility] appt [facility] - Offered patient to f/u with [facility]FM, pt to call office for appt if that's what she chooses - No bedside US completed today given amniotic fluid was intact Encounter for supervision of normal in teen primigravida, antepartum 11/09/2016 08/03/2017 Overview: 11/09/2016Patient is 16 years old 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 The FOB is 18 years old and is aware she is but not sure how much he wants to be involved. She is planning on keeping baby. [facility] information and Care Center info given to patient. TKRN documented as of this encounter (statuses as of 03/27/2022) [facility] History of Past illness Narrative* Problem Noted Date Resolved Date No leakage of amniotic fluid into vagina 021 10/07/2021 Overview: - Complains of intermittent vaginal fluid over past 2 months - Has had multiple ED evaluations and was told membranes intact - Complains of leakage and dampness yesterday, none today - SSE: neg nitrazine, neg pooling, neg ferning - BV/Trich, GC/CT pending - will treat accordingly - Precautions reviewed thoroughly Oligohydramnios in second trimester 12/24/2020 10/07/2021 Overview: - Per patient, low amniotic fluid noted on anatomy scan at 19 weeks, referred to [facility] ([place]) but missed appt - Instructed to come to [facility] for evaluation given she is complaining of leakage of fluid - Amniotic membranes intact on exam - Instructed patient to call her [facility] office on Sunday to facilitate rescheduling [facility] appt [facility] - Offered patient to f/u with [facility]FM, pt to call office for appt if that's what she chooses - No bedside US completed today given amniotic fluid was intact Encounter for supervision of normal in teen primigravida, antepartum 11/09/2016 08/03/2017 Overview: 11/09/2016Patient is 16 years old and is a sarah at [employer]. The FOB is 18 years old and is aware she is but not sure how much he wants to be involved. She is planning on keeping baby. [facility] information and Care Center info given to patient. TKRN documented as of this encounter (statuses as of 04/11/2022) [facility] History of Past illness Narrative* Problem Noted Date Resolved Date No leakage of amniotic fluid into vagina 021 10/07/2021 Overview: - Complains of intermittent vaginal fluid over past 2 months - Has had multiple ED evaluations and was told membranes intact - Complains of leakage and dampness yesterday, none today - SSE: neg nitrazine, neg pooling, neg ferning - BV/Trich, GC/CT pending - will treat accordingly - Precautions reviewed thoroughly Oligohydramnios in second trimester 12/24/2020 10/07/2021 Overview: - Per patient, low amniotic fluid noted on anatomy scan at 19 weeks, referred to [facility] ([place]) but missed appt - Instructed to come to [facility] for evaluation given she is complaining of leakage of fluid - Amniotic membranes intact on exam - Instructed patient to call her [facility] office on Sunday to facilitate rescheduling [facility] appt [facility] - Offered patient to f/u with [facility]FM, pt to call office for appt if that's what she chooses - No bedside US completed today given amniotic fluid was intact Encounter for supervision of normal in teen primigravida, antepartum 11/09/2016 08/03/2017 Overview: 11/09/2016Patient is 16 years old and is a sarah at [employer]. The FOB is 18 years old and is aware she is but not sure how much he wants to be involved. She is planning on keeping baby. [facility] information and Care Center info given to patient. TKRN documented as of this encounter (statuses as of 04/11/2022) [facility] History of Past illness Narrative* Problem Noted Date Resolved Date No leakage of amniotic fluid into vagina 021 10/07/2021 Overview: - Complains of intermittent vaginal fluid over past 2 months - Has had multiple ED evaluations and was told membranes intact - Complains of leakage and dampness yesterday, none today - SSE: neg nitrazine, neg pooling, neg ferning - BV/Trich, GC/CT pending - will treat accordingly - Precautions reviewed thoroughly Oligohydramnios in second trimester 12/24/2020 10/07/2021 Overview: - Per patient, low amniotic fluid noted on anatomy scan at 19 weeks, referred to [facility] ([place]) but missed appt - Instructed to come to [facility] for evaluation given she is complaining of leakage of fluid - Amniotic membranes intact on exam - Instructed patient to call her [facility] office on Sunday to facilitate rescheduling [facility] appt [facility] - Offered patient to f/u with [facility]FM, pt to call office for appt if that's what she chooses - No bedside US completed today given amniotic fluid was intact Encounter for supervision of normal in teen primigravida, antepartum 11/09/2016 08/03/2017 Overview: 11/09/2016Patient is 16 years old 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 The FOB is 18 years old and is aware she is but not sure how much he wants to be involved. She is planning on keeping baby. [facility] information and Care Center info given to patient. TKRN documented as of this encounter (statuses as of 04/11/2022) [facility] History of Past illness Narrative* Problem Noted Date Resolved Date No leakage of amniotic fluid into vagina 021 10/07/2021 Overview: - Complains of intermittent vaginal fluid over past 2 months - Has had multiple ED evaluations and was told membranes intact - Complains of leakage and dampness yesterday, none today - SSE: neg nitrazine, neg pooling, neg ferning - BV/Trich, GC/CT pending - will treat accordingly - Precautions reviewed thoroughly Oligohydramnios in second trimester 12/24/2020 10/07/2021 Overview: - Per patient, low amniotic fluid noted on anatomy scan at 19 weeks, referred to [facility] ([facility]) but missed appt - Instructed to come to [facility] for evaluation given she is complaining of leakage of fluid - Amniotic membranes intact on exam - Instructed patient to call her [facility] office on Sunday to facilitate rescheduling [facility] appt [facility] - Offered patient to f/u with [facility], pt to call office for appt if that's what she chooses - No bedside US completed today given amniotic fluid was intact Encounter for supervision of normal in teen primigravida, antepartum 11/09/2016 08/03/2017 Overview: 11/09/2016Patient is 16 years old and 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 The FOB is 18 years old and is aware she is but not sure how much he wants to be involved. She is planning on keeping baby. [facility] information and Care Center info given to patient. TKRN documented as of this encounter (statuses as of 04/11/2022) [facility] History of Past illness Narrative* Problem Noted Date Resolved Date No leakage of amniotic fluid into vagina 021 10/07/2021 Overview: - Complains of intermittent vaginal fluid over past 2 months - Has had multiple ED evaluations and was told membranes intact - Complains of leakage and dampness yesterday, none today - SSE: neg nitrazine, neg pooling, neg ferning - BV/Trich, GC/CT pending - will treat accordingly - Precautions reviewed thoroughly Oligohydramnios in second trimester 12/24/2020 10/07/2021 Overview: - Per patient, low amniotic fluid noted on anatomy scan at 19 weeks, referred to [facility] ([facility]) but missed appt - Instructed to come to [facility] for evaluation given she is complaining of leakage of fluid - Amniotic membranes intact on exam - Instructed patient to call her [facility] office on Sunday to facilitate rescheduling [facility] appt [facility] - Offered patient to f/u with [facility], pt to call office for appt if that's what she chooses - No bedside US completed today given amniotic fluid was intact Encounter for supervision of normal in teen primigravida, antepartum 11/09/2016 08/03/2017 Overview: 11/09/2016Patient is 16 years old 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 The FOB is 18 years old and is aware she is but not sure how much he wants to be involved. She is planning on keeping baby. [facility] information and Care Center info given to patient. JAY JAY documented as of this encounter (statuses as of 04/12/2022) [facility] History of Past illness Narrative* Problem Noted Date Resolved Date No leakage of amniotic fluid into vagina 021 10/07/2021 Overview: - Complains of intermittent vaginal fluid over past 2 months - Has had multiple ED evaluations and was told membranes intact - Complains of leakage and dampness yesterday, none today - SSE: neg nitrazine, neg pooling, neg ferning - BV/Trich, GC/CT pending - will treat accordingly - Precautions reviewed thoroughly Oligohydramnios in second trimester 12/24/2020 10/07/2021 Overview: - Per patient, low amniotic fluid noted on anatomy scan at 19 weeks, referred to [facility] ([place]) but missed appt - Instructed to come to [facility] for evaluation given she is complaining of leakage of fluid - Amniotic membranes intact on exam - Instructed patient to call her [facility] office on Sunday to facilitate rescheduling [facility] appt [facility] - Offered patient to f/u with [facility], pt to call office for appt if that's what she chooses - No bedside US completed today given amniotic fluid was intact Encounter for supervision of normal in teen primigravida, antepartum 11/09/2016 08/03/2017 Overview: 11/09/2016Patient is 16 years old and 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 The FOB is 18 years old and is aware she is but not sure how much he wants to be involved. She is planning on keeping baby. [facility] information and Care Center info given to patient. TKRN documented as of this encounter (statuses as of 04/20/2022) [facility] History of Past illness Narrative* Problem Noted Date Resolved Date No leakage of amniotic fluid into vagina 021 10/07/2021 Overview: - Complains of intermittent vaginal fluid over past 2 months - Has had multiple ED evaluations and was told membranes intact - Complains of leakage and dampness yesterday, none today - SSE: neg nitrazine, neg pooling, neg ferning - BV/Trich, GC/CT pending - will treat accordingly - Precautions reviewed thoroughly Oligohydramnios in second trimester 12/24/2020 10/07/2021 Overview: - Per patient, low amniotic fluid noted on anatomy scan at 19 weeks, referred to [facility] ([place]) but missed appt - Instructed to come to [facility] for evaluation given she is complaining of leakage of fluid - Amniotic membranes intact on exam - Instructed patient to call her [facility] office on Sunday to facilitate rescheduling [facility] appt [facility] - Offered patient to f/u with [facility], pt to call office for appt if that's what she chooses - No bedside US completed today given amniotic fluid was intact Encounter for supervision of normal in teen primigravida, antepartum 11/09/2016 08/03/2017 Overview: 11/09/2016Patient is 16 years old and 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 The FOB is 18 years old and is aware she is but not sure how much he wants to be involved. She is planning on keeping baby. [facility] information and Care Center info given to patient. TKRN documented as of this encounter (statuses as of 04/25/2022) [facility] History of Past illness Narrative* Problem Noted Date Resolved Date No leakage of amniotic fluid into vagina 021 10/07/2021 Overview: - Complains of intermittent vaginal fluid over past 2 months - Has had multiple ED evaluations and was told membranes intact - Complains of leakage and dampness yesterday, none today - SSE: neg nitrazine, neg pooling, neg ferning - BV/Trich, GC/CT pending - will treat accordingly - Precautions reviewed thoroughly Oligohydramnios in second trimester 12/24/2020 10/07/2021 Overview: - Per patient, low amniotic fluid noted on anatomy scan at 19 weeks, referred to [facility] ([place]) but missed appt - Instructed to come to [facility] for evaluation given she is complaining of leakage of fluid - Amniotic membranes intact on exam - Instructed patient to call her [facility] office on Sunday to facilitate rescheduling [facility] appt [facility] - Offered patient to f/u with [facility], pt to call office for appt if that's what she chooses - No bedside US completed today given amniotic fluid was intact Encounter for supervision of normal in teen primigravida, antepartum 11/09/2016 08/03/2017 Overview: 11/09/2016Patient is 16 years old and 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 The FOB is 18 years old and is aware she is but not sure how much he wants to be involved. She is planning on keeping baby. [facility] information and Care Center info given to patient. TKRN documented as of this encounter (statuses as of 05/02/2022) [facility] History of Past illness Narrative* Problem Noted Date Resolved Date No leakage of amniotic fluid into vagina 021 10/07/2021 Overview: - Complains of intermittent vaginal fluid over past 2 months - Has had multiple ED evaluations and was told membranes intact - Complains of leakage and dampness yesterday, none today - SSE: neg nitrazine, neg pooling, neg ferning - BV/Trich, GC/CT pending - will treat accordingly - Precautions reviewed thoroughly Oligohydramnios in second trimester 12/24/2020 10/07/2021 Overview: - Per patient, low amniotic fluid noted on anatomy scan at 19 weeks, referred to [facility] ([facility]) but missed appt - Instructed to come to [facility] for evaluation given she is complaining of leakage of fluid - Amniotic membranes intact on exam - Instructed patient to call her [facility] office on Sunday to facilitate rescheduling [facility] appt [facility] - Offered patient to f/u with [facility], pt to call office for appt if that's what she chooses - No bedside US completed today given amniotic fluid was intact Encounter for supervision of normal in teen primigravida, antepartum 11/09/2016 08/03/2017 Overview: 11/09/2016Patient is 16 years old and 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 The FOB is 18 years old and is aware she is but not sure how much he wants to be involved. She is planning on keeping baby. [facility] information and Care Center info given to patient. TKRN documented as of this encounter (statuses as of 05/04/2022) [facility] History of Past illness Narrative* Problem Noted Date Resolved Date No leakage of amniotic fluid into vagina 021 10/07/2021 Overview: - Complains of intermittent vaginal fluid over past 2 months - Has had multiple ED evaluations and was told membranes intact - Complains of leakage and dampness yesterday, none today - SSE: neg nitrazine, neg pooling, neg ferning - BV/Trich, GC/CT pending - will treat accordingly - Precautions reviewed thoroughly Oligohydramnios in second trimester 12/24/2020 10/07/2021 Overview: - Per patient, low amniotic fluid noted on anatomy scan at 19 weeks, referred to [facility] ([place]) but missed appt - Instructed to come to [facility] for evaluation given she is complaining of leakage of fluid - Amniotic membranes intact on exam - Instructed patient to call her [facility] office on Sunday to facilitate rescheduling [facility] appt [facility] - Offered patient to f/u with [facility], pt to call office for appt if that's what she chooses - No bedside US completed today given amniotic fluid was intact Encounter for supervision of normal in teen primigravida, antepartum 11/09/2016 08/03/2017 Overview: 11/09/2016Patient is 16 years old and is a sarah at [employer]. The FOB is 18 years old and is aware she is but not sure how much he wants to be involved. She is planning on keeping baby. [facility] information and Care Center info given to patient. TKRN documented as of this encounter (statuses as of 05/04/2022) [facility] of Past illness Narrative* Problem Noted Date Resolved Date No leakage of amniotic fluid into vagina 021 10/07/2021 Overview: - Complains of intermittent vaginal fluid over past 2 months - Has had multiple ED evaluations and was told membranes intact - Complains of leakage and dampness yesterday, none today - SSE: neg nitrazine, neg pooling, neg ferning - BV/Trich, GC/CT pending - will treat accordingly - Precautions reviewed thoroughly Oligohydramnios in second trimester 12/24/2020 10/07/2021 Overview: - Per patient, low amniotic fluid noted on anatomy scan at 19 weeks, referred to [facility] ([place]) but missed appt - Instructed to come to [facility] for evaluation given she is complaining of leakage of fluid - Amniotic membranes intact on exam - Instructed patient to call her [facility] office on Sunday to facilitate rescheduling [facility] appt [facility] - Offered patient to f/u with [facility], pt to call office for appt if that's what she chooses - No bedside US completed today given amniotic fluid was intact Encounter for supervision of normal in teen primigravida, antepartum 11/09/2016 08/03/2017 Overview: 11/09/2016Patient is 16 years old and 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 The FOB is 18 years old and is aware she is but not sure how much he wants to be involved. She is planning on keeping baby. [facility] information and Care Center info given to patient. TKRN documented as of this encounter (statuses as of 05/10/2022) [facility] History of Past illness Narrative* Problem Noted Date Resolved Date No leakage of amniotic fluid into vagina 021 10/07/2021 Overview: - Complains of intermittent vaginal fluid over past 2 months - Has had multiple ED evaluations and was told membranes intact - Complains of leakage and dampness yesterday, none today - SSE: neg nitrazine, neg pooling, neg ferning - BV/Trich, GC/CT pending - will treat accordingly - Precautions reviewed thoroughly Oligohydramnios in second trimester 12/24/2020 10/07/2021 Overview: - Per patient, low amniotic fluid noted on anatomy scan at 19 weeks, referred to [facility] ([place]) but missed appt - Instructed to come to [facility] for evaluation given she is complaining of leakage of fluid - Amniotic membranes intact on exam - Instructed patient to call her [facility] office on Sunday to facilitate rescheduling [facility] appt [facility] - Offered patient to f/u with [facility], pt to call office for appt if that's what she chooses - No bedside US completed today given amniotic fluid was intact Encounter for supervision of normal in teen primigravida, antepartum 11/09/2016 08/03/2017 Overview: 11/09/2016Patient is 16 years old and is a sarah [employer]. The FOB is 18 years old and is aware she is but not sure how much he wants to be involved. She is planning on keeping baby. [facility] information and Care Center info given to patient. TKRN documented as of this encounter (statuses as of 05/11/2022) [facility] Note. MICRO - Microbiology PROCEDURE: Affirm Pathogens DNA Direct Probe [*1] SOURCE: Vaginal Fluid BODY SITE: Vagina COLLECTED DATE/TIME: 12/10/2020 23:58 EDT RECEIVED DATE/TIME: 12/11/2020 18:21 EDT START DATE/TIME: 12/11/2020 18:22 EDT FREE TEXT SOURCE: FINAL REPORTS Final Report [] Verified Date/Time/Personnel: 12/12/2020 13:21 EDT Dulce Maria species DNA Probe Negative Gardnerella vaginalis DNA Probe Negative Trichomonas vaginalis DNA Probe Negative Performing Locations *1: This test was performed at: [address], [facility] , [facility] ([place])Comment on above:Performed By: #### MG, LIPID, ADIFF, ANEU, GFR, CMP, CBC, PHOS #### [address] [id number] Note. MICRO - Microbiology PROCEDURE: Urine Culture [*1] SOURCE: Urine, Clean Catch BODY SITE: COLLECTED DATE/TIME: 11/01/2020 01:20 EDT RECEIVED DATE/TIME: 11/01/2020 07:19 EDT START DATE/TIME: 11/01/2020 07:20 EDT FREE TEXT SOURCE: FINAL REPORTS Final Report [] Verified Date/Time/Personnel: 11/02/2020 10:34 EDT 10,000 - 50,000 cfu/ml Multiple bacterial morphotypes present. Probable Contamination. Suggest recollection if clinically indicated. Performing Locations *1: This test was performed at: [address], [facility] ([place])Comment on above:Performed By: #### MG, LIPID, ADIFF, ANEU, GFR, CMP, CBC, PHOS #### [address] [id number] Note. MICRO - Microbiology PROCEDURE: Urine Culture [*1] SOURCE: Urine BODY SITE: COLLECTED DATE/TIME: 09/07/2020 09:35 EST RECEIVED DATE/TIME: 09/07/2020 15:41 EST START DATE/TIME: 09/07/2020 15:42 EST FREE TEXT SOURCE: FINAL REPORTS Final Report [] Verified Date/Time/Personnel: 09/08/2020 14:15 EST 50,000 - 100,000 cfu/ml Multiple bacterial morphotypes present. Probable Contamination. Suggest recollection if clinically indicated. Performing Locations *1: This test was performed at: [address], [facility] ([place])Comment on above:Performed By: #### MG, LIPID, ADIFF, ANEU, GFR, CMP, CBC, PHOS #### [place] [address]Evaluation note* Diagnosis (spontaneous vaginal delivery)- Primary Normal delivery premature rupture of membranes (PPROM) with onset of labor after 24 hours of rupture in third trimester, antepartum Chorioamnionitis Infection of amniotic cavity, unspecified as to episode of care Encounter for induction of labor documented in this encounter [facility] Work Phone: Evaluation note* Diagnosis 15 weeks gestation of - Primary state, incidental History of premature rupture of membranes (PPROM) Encounter for supervision of other normal in second trimester Headaches [facility] [place] [facility] Diagnosis History of premature rupture of membranes (PPROM)- Primary [facility] [place] [facility]* Diagnosis 19 weeks gestation of - Primary state, incidental Screen for STD (sexually transmitted disease) Screening examination for venereal disease Supervision of other high risk , antepartum History of premature rupture of membranes (PPROM) [facility] Diagnosis 23 weeks gestation of - Primary state, incidental Supervision of other high risk , antepartum Encounter for repeat ultrasound of pyelectasis, antepartum, single or unspecified fetus [facility] Diagnosis Pyelectasis of fetus on ultrasound- Primary Abnormal findings on screening History of premature rupture of membranes (PPROM) Obesity in Obesity complicating , childbirth, or the puerperium, unspecified as to episode of care or not applicable 27 weeks gestation of state, incidental Need for vaccination Need for prophylactic vaccination and inoculation against unspecified single disease [facility] [place] [facility]* Diagnosis Encounter for repeat ultrasound of pyelectasis in quiñones , antepartum- Primary 27 weeks gestation of state, incidental [facility] Diagnosis Encounter for repeat ultrasound of pyelectasis, antepartum, single or unspecified fetus- Primary Pyelectasis of fetus on ultrasound Abnormal findings on screening [facility] Diagnosis Pyelectasis of fetus on ultrasound- Primary Abnormal findings on screening Supervision of other high risk , antepartum 30 weeks gestation of state, incidental [facility] Diagnosis Hydronephrosis with ureteropelvic junction (UPJ) obstruction [facility]* Diagnosis Pyelectasis of fetus on ultrasound- Primary Abnormal findings on screening History of premature rupture of membranes (PPROM) 31 weeks gestation of state, incidental [facility] Diagnosis Hydronephrosis with ureteropelvic junction (UPJ) obstruction [facility]* Diagnosis complicated by GI abnormality, not applicable or unspecified fetus- Primary renal anomaly, single gestation [facility]* Diagnosis Supervision of other high risk , antepartum- Primary 34 weeks gestation of state, incidental APPOINTMENT CANCELLED [facility] Diagnosis Abnormal ultrasound- Primary Abnormal findings on screening Obesity complicating , third trimester [facility] Diagnosis Pyelectasis of fetus on ultrasound- Primary Abnormal findings on screening documented in this encounter [facility] note* Diagnosis 34 weeks gestation of - Primary state, incidental Supervision of other high risk , antepartum Pyelectasis of fetus on ultrasound Abnormal findings on screening History of herpes genitalis Personal history of other infectious and parasitic disease [facility] [place] [facility]* Diagnosis 35 weeks gestation of - Primary state, incidental Decreased movements in third trimester, single or unspecified fetus documented in this encounter [facility] note* Diagnosis 36 weeks gestation of - Primary state, incidental Pyelectasis of fetus on ultrasound Abnormal findings on screening High-risk in third trimester [facility] [place] [facility]* Diagnosis 37 weeks gestation of - Primary state, incidental Pyelectasis of fetus on ultrasound Abnormal findings on screening High-risk in third trimester documented in this encounter [facility] note* Diagnosis anomaly necessitating delivery, single or unspecified fetus- Primary documented in this encounter [facility] note* Diagnosis Known anomaly, antepartum, single or unspecified fetus- Primary documented in this encounter [facility] note* Diagnosis 38 weeks gestation of - Primary state, incidental Pyelectasis of fetus on ultrasound Abnormal findings on screening High-risk in third trimester documented in this encounter [facility] note* Diagnosis renal anomaly, single gestation- Primary [facility] noteNo assessment information availableW[facility] Work Phone: Evaluation note* Diagnosis care and examination- Primary Routine follow-up control counseling General counseling for initiation of other contraceptive measures documented in this encounter [facility] note* Diagnosis Sore throat- Primary Acute pharyngitis Exudative tonsillitis Fever, unspecified fever cause [facility] [place] [facility]* Diagnosis Sore throat- Primary Acute pharyngitis Suspected COVID-19 virus infection [facility] [place] [facility]* Diagnosis Burning with urination- Primary Dysuria documented in this encounter [facility] note* Diagnosis Yeast dermatitis- Primary Candidiasis of skin and nails Vaginal discharge Leukorrhea, not specified as infective Screening examination for STD (sexually transmitted disease) Screening examination for venereal disease [facility] [place] [facility]* Diagnosis Dysuria- Primary Urinary frequency Sore throat Acute pharyngitis [facility] [place] [facility]* Diagnosis Sore throat- Primary Acute pharyngitis Acute cough [facility] Dis[facility] instructions Additional Instructions 1. 2 puffs of inhaler every 2-4 hours while awake for the next 2 days then every 4-6 hours as needed 2. You may feel ill for another 7 to 10 days 3. You may take either Tylenol every 6 hours or 4 ibuprofen tablets every 8 hours for muscle aches and fever. [facility] Work Phone: Hospital Discharge instructions Additional Instructions Take Tylenol or Motrin as needed, if symptoms worsen be reevaluatedWUK Healthcare Work Phone: Hospital Discharge instructions Additional Instructions Follow-up your dentist on as scheduled.[facility] Work Phone: Reason for referral (narrative)* Diagnostic Procedure Only (Routine) - Authorized Specialty Diagnoses / Procedures Referred By Real hardin Referred To Contact [facility] Diagnoses 23 weeks gestation of Supervision of other high risk , antepartum Encounter for repeat ultrasound of pyelectasis, antepartum, single or unspecified fetus Procedures OBSTETRIC ULTRASOUND WHI US PREG UTERUS AFTER 1ST TRIMEST GESTATION Angely Geronimo MD [address] [place] [address] [place] [address] Referral ID Status Reason Start Date Expiration Date Visits Requested Visits Authorized [id number] Authorized Auto-Generat ed Referral 01/25/2022 01/25/2023 1 1 [facility] for referral (narrative)* Diagnostic Procedure Only (Routine) - Pending Review Specialty Diagnoses / Procedures Referred By Real t Referred To Contact [facility] Diagnoses 27 weeks gestation of Pyelectasis of fetus on ultrasound Procedures OBSTETRIC ULTRASOUND WHI US PREG UTERUS AFTER 1ST TRIMEST GESTATION Casi Redmond MD [address] [place] [address] [facility] [address] [place] [address] Referral ID Status Reason Start Date Expiration Date Visits Requested Visits Authorized [id number] Pending Review Auto-Generat ed Referral 02/22/2022 02/22/2023 1 1 [facility] for referral (narrative)* Diagnostic Procedure Only (Routine) - Pending Review Specialty Diagnoses / Procedures Referred By Contac t Referred To Contact [facility] Diagnoses Abnormal ultrasound Procedures OBSTETRIC ULTRASOUND WHI US PREG UTERUS AFTER 1ST TRIMEST GESTATION Jaylen Ramires MD [address] [place] [address] [address] Referral ID Status Reason Start Date Expiration Date Visits Requested Visits Authorized [id number] Pending Review Auto-Generat ed Referral 04/11/2022 04/11/2023 1 1 [facility] for referral (narrative)* Diagnostic Procedure Only (Routine) - Pending Review Specialty Diagnoses / Procedures Referred By Contac t Referred To Contact [facility] Diagnoses Pyelectasis of fetus on ultrasound Procedures OBSTETRIC ULTRASOUND WHI US PREG UTERUS AFTER 1ST TRIMEST GESTATION Sanjay Whalen MD [address] [place] [address] [facility] [address] [place] [address] Referral ID Status Reason Start Date Expiration Date Visits Requested Visits Authorized [id number] Pending Review Auto-Generat ed Referral 04/11/2022 04/11/2023 1 1 [facility] for referral (narrative)* Outpatient Procedure (Routine) - Pending Review Specialty Diagnoses / Procedures Referred By Contac t Referred To Contact [facility] Diagnoses 34 weeks gestation of Supervision of other high risk , antepartum Procedures NON-STRESS TEST NON-STRESS TEST Angely Geronimo MD [address] [place] [address] [facility] [address] [place] [address] Referral ID Status Reason Start Date Expiration Date Visits Requested Visits Authorized [id number] Pending Review Auto-Generat ed Referral 04/12/2022 04/12/2023 5 1 [facility] Summary Purpose Family History No Family History Records FoundNo Family History Records FoundNo Family History Records FoundNo Family History Records FoundNo Family History Records FoundNo Family History Records FoundNo Family History Records Found Advance Directives No Advanced Directives Records FoundLatest Code Status on File Code Status Date Activated Date Inactivated Comments Full Code 03/12/2021 5:18 AM Full Code 03/11/2021 1:49 PM 03/12/2021 5:18 AM Full Code 01/19/2021 2:10 AM 03/11/2021 1:49 PM Documents on File Type Date Recorded Patient Crabber Expl anation Advance Directive(s) 12/24/2020 8:32 PM Documents on File Type Date Recorded Patient Crabber Expl anation Advance Directive(s) 12/24/2020 8:32 PM Advance Directive Response Recorded Date/ Time Living Will No June 08 2:49pm Power of Certified Legal Investigator No June 08, 2022 2:49pm Advance Directive Response Recorded Date/ Time Living Will No July 27 022 11:15am Power of Certified Legal Investigator No July 27, 2022 11:15am Advance Directive Response Recorded Date/ Time Living Will No October 01 023 4:43pm Power of Certified Legal Investigator No October 01, 2022 4:43pm Advance Directive Response Recorded Date/ Time Living Will No May 12, 2023 10:14pm Power of Certified Legal Investigator No April 10:14pm Advance Directive Response Recorded Date/ Time Living Will No August 26 4:40pm Power of Certified Legal Investigator No August 26, 2023 4:40pm Advance Directive Response Recorded Date/ Time Living Will No November 05, 2023 4:51pm Power of Certified Legal Investigator No November 04 4:51pm Medications Administered Section Active Administered Medications - up to 3 most recent administrations Medication Order MAR Action Action Date Dose Rate Site HYDROXYprogest(PF)(preg presv) AutoInjector 275 mg (SLOANE) 275 mg, SUBCUTANEOUS, 1 TIME WEEKLY, First dose on Sun12/02/21 at 1530, Until Discontinued Given 12/02/2021 2:23 PM EDT 275 mg Arm, Right Reason for Referral Specialty Diagnoses / Procedures Referred By Real hardin Referred To Contact Diagnoses Encounter for repeat ultrasound of pyelectasis, antepartum, single or unspecified fetus Pyelectasis of fetus on ultrasound Procedures CONSULT TO MATERNAL MEDI OFFICE/OUTPATIENT [facility] MDM 60-74 MINUTES Casi Redmond MD [address] [place] [address] Referral ID Status Reason Start Date Expiration Date Visits Requested Visits Authorized [id number] Authorized PCP Requested Referral Auto-Generate d Referral 03/01/2022 03/01/2023 1 1 Specialty Diagnoses / Procedures Referred By Real hardin Referred To Contact [facility] Diagnoses Hydronephrosis with ureteropelvic junction (UPJ) obstruction Procedures MRI FETUS/PLACENTA WO IVCON MRI W/PLACNTL MATRNL PLVC IMG SING/1ST [facility] [place] [address] [place] [address] [facility] Referral ID Status Reason Start Date Expiration Date Visits Requested Visits Authorized [id number] Authorized Auto-Generat ed Referral 03/15/2022 05/14/2022 1 1 Referral ID Status Reason Start Date Expiration Date V isits Requested Visits Authorized [id number] Closed Auto-Generate d Referral 03/15/2022 05/14/2022 1 1 Chief Complaint and Reason for Visit Chief Complaint BODY ACHES Chief Complaint BODY ACHES LAP BILATERAL SALPING Chief Complaint BODY ACHES LAP BILATERAL SALPING DIZZINESS Chief Complaint COUGH Chief Complaint COUGH RIGHT EAR PAIN Chief Complaint RIGHT EAR PAIN DENTAL Health Concerns 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 [employer] 05/14/2022 Infection Onset Date Last Indicated Resolved Time COVID-19 Rule-Out 08/11/2022 08/11/2022 08/12/2022 12:17 AM EST Problem Noted Date [employer] Art [employer] 05/14/2022 Infection Onset Date Last Indicated Resolved Time COVID-19 Rule-Out 10/11/2022 10/11/2022 Problem 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 Additional Source Comments INFORMATION SOURCE (unrecogn ized section and content) DATE CREATED AUTHOR 12/28/2020 [facility] DATE CREATED AUTHOR AUTHOR'S ORGANIZ ATION 01/07/2021 [facility] DATE CREATED AUTHOR AUTHOR'S ORGANIZ ATION 03/18/2021 [facility] DATE CREATED AUTHOR AUTHOR'S ORGANIZ ATION 05/22/2021 [facility] ([place] DATE CREATED AUTHOR AUTHOR'S ORGANIZ ATION 11/13/2021 [facility] DATE CREATED AUTHOR AUTHOR'S ORGANIZ ATION 06/23/2024 [facility] DATE CREATED AUTHOR AUTHOR'S ORGANIZ ATION 01/07/2025 [facility] Reason for Visit (unrecogniz ed section and content) Reason Comments Rupture of Membranes Reason Comments sequential results Reason Onset Date Comments Care 11/30/2021 Reason Comments Injections [place] Injection Reason Onset Date Comments Care 12/28/2021 Reason Onset Date Comments Care 01/25/2022 Reason Onset Date Comments Care 02/22/2022 Reason Comments US Specialty Diagnoses / Procedures Referred By Real t Referred To Contact [facility] Diagnoses 23 weeks gestation of Supervision of other high risk , antepartum Encounter for repeat ultrasound of pyelectasis, antepartum, single or unspecified fetus Procedures OBSTETRIC ULTRASOUND WHI US PREG UTERUS AFTER 1ST TRIMEST GESTATION Angely Geronimo MD [address] [place] [address] [facility] [address] [address] Referral ID Status Reason Start Date Expiration Date V isits Requested Visits Authorized [id number] Closed Auto-Generate d Referral 01/25/2022 01/25/2023 1 1 Reason Comments Consult ordered by Dr Adriel delarosa Reason Comments Establish Care care Reason Comments Care Plan Care Coordination Reason Onset Date Comments Care 03/22/2022 Specialty Diagnoses / Procedures Referred By Contac t Referred To Contact [facility] Diagnoses Hydronephrosis with ureteropelvic junction (UPJ) obstruction Procedures MRI FETUS/PLACENTA WO IVCON MRI W/PLACNTL MATRNL PLVC IMG SING/1ST [facility] [place] [address] [place] [address] Mr Imaging Referral ID Status Reason Start Date Expiration Date V isits Requested Visits Authorized [id number] Closed Auto-Generate d Referral 03/15/2022 05/14/2022 1 1 Reason Comments Consult consult Reason Onset Date Comments Care 04/11/2022 Reason Comments US Reason Comments Appointment Reason Comments Orders Reason Onset Date Comments Care 04/12/2022 Reason Onset Date Comments Care 04/20/2022 Reason Onset Date Comments Care 04/25/2022 Reason Onset Date Comments Care 05/02/2022 Reason Onset Date Comments Care 05/10/2022 Reason Comments Consult Reason Comments Early 4 wks Reason Comments Results Reason Comments Sore Throat Nasal congestion, fe jason x3 days Reason Comments Cough Cough, fever, ST, MUÑOZ and congestion x 2 days Reason Comments UTI Burning, irritation, frequency started this morning Reason Comments Vaginal Problem Reason Comments UTI X3 days Reason Comments Results Orders Reason Comments Patient Update Reason Comments URI X 3 days with BRIDGETTE ea r fullness x 2 days Specialty Diagnoses / Procedures Referred By Contac t Referred To Contact [facility] Diagnoses cough, sore throat, chest congestion, bilateral ear pain Procedures EST SAME DAY [facility] [address] [place] [address] Referral ID Status Reason Start Date Expiration Date Visits Requested Visits Authorized [id number] New Request Financial Clearance Required - Self Pay 4 09/24/2024 1 1 Ordered Prescriptions (unrec ognized section and content) Prescription Sig Dispensed Refills Start Date End Da te Vit-Fe Fumarate-FA ( VITAMINS) 28-0.8 MG TABS Take 1 tablet by mouth daily 90 tablet 1 03/13/2021 ibuprofen (ADVIL;MOTRIN) 600 MG tablet Take 1 tablet by mouth every 6 hours as needed for Pain 120 tablet 0 03/13/2021 Scheduled Active and Recently Administ ered Medications (unrecognized section and content) Medication Order 03/11/2021 03/12/2021 03/13/2021 acetaminophen (TYLENOL) tablet 650 mg 650 mg, Oral, EVERY 6 HOURS, First dose on Sun03/12/21 at 0545, Maximum dose of acetaminophen is 4000 mg from all sources in 24 hours., 0912 (Not Given - Provider: Anibal Kang RN - Reason: Patient/family refused)1418 (Not Given - Provider: Anibal Kang RN - Reason: Patient/family refused)1907 (Not Given - Provider: Anibal Kang RN - Reason: Patient/family refused)2345 (Due) 0955 (Not Given - Provider: Anibal Kang RN - Reason: Patient/family refused)1145 (Due)1745 (Due)2345 (Due) acyclovir (ZOVIRAX) capsule 400 mg (CANCELED) 400 mg, Oral, 3 TIMES DAILY, First dose on Sun01/19/21 at 0900, Substituted for valACYclovir (VALTREX). 0911 (Given - Provider: Jamia Sylvester RN) clindamycin (CLEOCIN) 900 mg in dextrose 5 % 50 mL IVPB (CANCELED) 900 mg, Intravenous, EVERY 8 HOURS, First dose on Sun03/11/21 at 1415, Until Discontinued 1440 (New Bag - Provider: Jessica Romano RN)1540 (Due: Stopped - Provider: Jessica Romano RN)2245 (New Bag - Provider: Caterina Vargas, ARNOL)2345 (Stopped - Provider: Caterina Vargas RN) famotidine (PEPCID) injection 20 mg 20 mg, Intravenous, 2 TIMES DAILY, First dose on Sun03/11/21 at 1415, Administer over 2 minutes. 1445 (Not Given - Provider: Jessica Romano RN - Reason: Patient/family refused)2230 (Given - Provider: Caterina Vargas RN) 0913 (Not Given - Provider: Anibal Kang RN - Reason: Patient/family refused)2100 (Due) 0955 (Not Given - Provider: Anibal Kang RN - Reason: Patient/family refused)2100 (Due) famotidine (PEPCID) tablet 20 mg (CANCELED) 20 mg, Oral, 2 TIMES DAILY, First dose on 01/21/21 at 1745 0911 (Given - Provider: Jamia Sylvester RN) gentamicin (GARAMYCIN) 354 mg in dextrose 5 % 250 mL IVPB (CANCELED) 354 mg (5 mg/kg 70.8 kg Adjusted weight), Intravenous, EVERY 24 HOURS, First dose on 03/11/21 at 1415, Until Discontinued 1521 (New Bag - Provider: Jessica Romano, RN)1621 (Stopped - Provider: Jessica Romano RN) ibuprofen (ADVIL;MOTRIN) tablet 600 mg (COMPLETED) 600 mg, Oral, ONCE, On 03/11/21 at 1415, For 1 dose, IMMEDIATE . Do not crush or chew. DO NOT GIVE IBUPROFEN PRIOR TO DELIVERY., Post Delivery 1415 (Due) 0200 (Given - Provider: Caterina Vargas RN) ibuprofen (ADVIL;MOTRIN) tablet 600 mg 600 mg, Oral, EVERY 6 HOURS, First dose on 03/12/21 at 0545, Do not crush or chew., 0913 (Not Given - Provider: Anibal Kang RN - Reason: Patient/family refused)1418 (Not Given - Provider: Anibal Kang RN - Reason: Patient/family refused)1907 (Not Given - Provider: Anibal Kang RN - Reason: Patient/family refused)2345 (Due) 0955 (Not Given - Provider: Anibal Kang RN - Reason: Patient/family refused)1145 (Due)1745 (Due)2345 (Due) measles, mumps & rubella vaccine (MMR) injection 0.5 mL 0.5 mL, Subcutaneous, PRIOR TO DISCHARGE, Starting on 03/12/21 at 0518, For 1 dose, Administer only if non-immune or equivical, vitamin 27-1 MG tablet 1 tablet (CANCELED) 1 tablet, Oral, DAILY, First dose on Liliane 01/20/21 at 0900 0911 (Given - Provider: Jamia Sylvester RN) sodium chloride flush 0.9 % injection 10 mL (CANCELED) 10 mL, Intravenous, 2 TIMES DAILY, First dose on Sun03/09/21 at 1030, For Line Patency: Peripheral IV = 5 mL; Midline or Central Line = 10 mL/lumen. If following IV push medication, administer flush at same rate as the IV push. Flush volume is determined by type of infusion therapy being given. For non-viscous solutions use: Peripheral IV = 5 mL Midline or Central Line = 10 mL/lumen For viscous solutions (i.e. blood components, parenteral nutrition, contrast media, or after obtaining blood sample) use: Peripheral IV = 10 mL Midline or Central Line = 20 mL/lumen 0911 (Given - Provider: Jamia Sylvester RN)2100 (Due) Ujqmmqi-Wdexeo-Dpaao Pertussis (BOOSTRIX) injection 0.5 mL 0.5 mL, Intramuscular, PRIOR TO DISCHARGE, Starting on Sun03/12/21 at 0518, For 1 dose, If not previously administered during at 27-36 weeks as recommended by CDC., Continuous Medication Order 03/11/2021 03/12/2021 03/13/2021 lactated ringers infusion (CANCELED) Intravenous, at 125 mL/hr, CONTINUOUS, Starting on Sun03/11/21 at 1415, Labor and Delivery 1417 (New Bag - Provider: Jessica Romano RN) oxytoxin (PITOCIN) 30 units in 500 mL infusion (CANCELED) 1-20 adarsh-units/min (1-20 mL/hr), Intravenous, at 1-20 mL/hr, CONTINUOUS, Starting on Sun03/11/21 at 1415, Begin infusion at 1 adarsh-unit/min (1 adarsh-unit per min = 1 mL per hour) and increase by 1 adarsh-unit/min after 30 minutes. Then increase by 2 adarsh-units/min as needed, no faster than every 30 minutes, until labor is achieved. Labor is defined as contractions every 2-3 minutes with cervical changes or [place] units (MVU) greater than 200 in a 10-minute window. Maximum infusion rate: 20 daarsh-unit/min. Contact provider if maximum rate does not achieve desired response. Provider may order alternative titration goal or other clinically appropriate goal of titration rate (s). Smaller titration increments of 1 adarsh-units/min, not faster than every 30 minutes, may be used when approaching therapeutic goal. 1456 (New Bag - Provider: Jessica Romano, RN) PRN Medication Order 03/11/2021 03/12/2021 03/13/2021 acetaminophen (TYLENOL) tablet 650 mg (CANCELED) 650 mg, Oral, EVERY 4 HOURS PRN, Pain Mild (1-3), Fever, Fever >100.5 F (38 C), Starting on 03/11/21 at 1346, Maximum dose of acetaminophen is 4000 mg from all sources in 24 hours., Labor and Delivery 0200 (Given - Provider: Caterina Vargas, ARNOL) benzocaine-benzethonium (DERMOPLAST) 20-0.2 % spray Topical, PRN, Pain, Starting on 03/12/21 at 0518, Apply to perineal area. Patient is capable and may self administer at bedside., 0623 (Given - Provider: Comfort Jorge, ARNOL) docusate sodium (COLACE) capsule 100 mg 100 mg, Oral, 2 TIMES DAILY PRN, Constipation, Starting on 03/12/21 at 0518, Do not crush or break., lansinoh lanolin ointment Topical, PRN, Dry Skin, nipple discomfort, Starting on 03/12/21 at 0518, ondansetron (ZOFRAN) injection 4 mg 4 mg, Intravenous, EVERY 6 HOURS PRN, Nausea, Starting on 03/12/21 at 0518, simethicone (MYLICON) chewable tablet 80 mg 80 mg, Oral, EVERY 6 HOURS PRN, Cramping, Flatulence, Starting on 03/12/21 at 0518, witch rah-glycerin (TUCKS) pad Topical, PRN, Hemorrhoids, For perineal pain or discomfort, Starting on 03/12/21 at 0518, Apply to perineal area. Patient is capable and may self administer at bedside., 0623 (Given - Provider: Comfort Jorge RN) <item><item> Privacy Markings (unrecogniz ed section and content) Section Author: Corrie Matthew PROHIBITION ON REDISCLOSURE OF CONFIDENTIAL INFORMATION This notice accompanies a disclosure of information concerning a client made to you with the consent of such client. Section Author: Corrie Matthew PROHIBITION ON REDISCLOSURE OF CONFIDENTIAL INFORMATION This notice accompanies a disclosure of information concerning a client made to you with the consent of such client. Source Comments (unrecognize d section and content) In the event this informatio n is protected by the Federal Confidentiality of Alcohol and Drug Abuse Patient Records regulations: The Federal rules restrict any use of the information to criminally investigate or prosecute any alcohol or drug abuse patient.[facility] HospitalIn the event this information is protected by the Federal Confidentiality of Alcohol and Drug Abuse Patient Records regulations: The Federal rules restrict any use of the information to criminally investigate or prosecute any alcohol or drug abuse patient.[facility] HospitalIn the event this information is protected by the Federal Confidentiality of Alcohol and Drug Abuse Patient Records regulations: The Federal rules restrict any use of the information to criminally investigate or prosecute any alcohol or drug abuse patient.[facility] HospitalIn the event this information is protected by the Federal Confidentiality of Alcohol and Drug Abuse Patient Records regulations: The Federal rules restrict any use of the information to criminally investigate or prosecute any alcohol or drug abuse patient.[facility] HospitalIn the event this information is protected by the Federal Confidentiality of Alcohol and Drug Abuse Patient Records regulations: The Federal rules restrict any use of the information to criminally investigate or prosecute any alcohol or drug abuse patient.[facility] HospitalIn the event this information is protected by the Federal Confidentiality of Alcohol and Drug Abuse Patient Records regulations: The Federal rules restrict any use of the information to criminally investigate or prosecute any alcohol or drug abuse patient.[facility] HospitalIn the event this information is protected by the Federal Confidentiality of Alcohol and Drug Abuse Patient Records regulations: The Federal rules restrict any use of the information to criminally investigate or prosecute any alcohol or drug abuse patient.[facility] HospitalIn the event this information is protected by the Federal Confidentiality of Alcohol and Drug Abuse Patient Records regulations: The Federal rules restrict any use of the information to criminally investigate or prosecute any alcohol or drug abuse patient.[facility] HospitalIn the event this information is protected by the Federal Confidentiality of Alcohol and Drug Abuse Patient Records regulations: The Federal rules restrict any use of the information to criminally investigate or prosecute any alcohol or drug abuse patient.[facility] HospitalIn the event this information is protected by the Federal Confidentiality of Alcohol and Drug Abuse Patient Records regulations: The Federal rules restrict any use of the information to criminally investigate or prosecute any alcohol or drug abuse patient.[facility] HospitalIn the event this information is protected by the Federal Confidentiality of Alcohol and Drug Abuse Patient Records regulations: The Federal rules restrict any use of the information to criminally investigate or prosecute any alcohol or drug abuse patient.[facility] HospitalIn the event this information is protected by the Federal Confidentiality of Alcohol and Drug Abuse Patient Records regulations: The Federal rules restrict any use of the information to criminally investigate or prosecute any alcohol or drug abuse patient.[facility] HospitalIn the event this information is protected by the Federal Confidentiality of Alcohol and Drug Abuse Patient Records regulations: The Federal rules restrict any use of the information to criminally investigate or prosecute any alcohol or drug abuse patient.[facility] HospitalIn the event this information is protected by the Federal Confidentiality of Alcohol and Drug Abuse Patient Records regulations: The Federal rules restrict any use of the information to criminally investigate or prosecute any alcohol or drug abuse patient.[facility] HospitalIn the event this information is protected by the Federal Confidentiality of Alcohol and Drug Abuse Patient Records regulations: The Federal rules restrict any use of the information to criminally investigate or prosecute any alcohol or drug abuse patient.[facility] HospitalIn the event this information is protected by the Federal Confidentiality of Alcohol and Drug Abuse Patient Records regulations: The Federal rules restrict any use of the information to criminally investigate or prosecute any alcohol or drug abuse patient.[facility] HospitalIn the event this information is protected by the Federal Confidentiality of Alcohol and Drug Abuse Patient Records regulations: The Federal rules restrict any use of the information to criminally investigate or prosecute any alcohol or drug abuse patient.[facility] HospitalIn the event this information is protected by the Federal Confidentiality of Alcohol and Drug Abuse Patient Records regulations: The Federal rules restrict any use of the information to criminally investigate or prosecute any alcohol or drug abuse patient.[facility] HospitalIn the event this information is protected by the Federal Confidentiality of Alcohol and Drug Abuse Patient Records regulations: The Federal rules restrict any use of the information to criminally investigate or prosecute any alcohol or drug abuse patient.[facility] HospitalIn the event this information is protected by the Federal Confidentiality of Alcohol and Drug Abuse Patient Records regulations: The Federal rules restrict any use of the information to criminally investigate or prosecute any alcohol or drug abuse patient.[facility] HospitalIn the event this information is protected by the Federal Confidentiality of Alcohol and Drug Abuse Patient Records regulations: The Federal rules restrict any use of the information to criminally investigate or prosecute any alcohol or drug abuse patient.[facility] HospitalIn the event this information is protected by the Federal Confidentiality of Alcohol and Drug Abuse Patient Records regulations: The Federal rules restrict any use of the information to criminally investigate or prosecute any alcohol or drug abuse patient.[facility] HospitalIn the event this information is protected by the Federal Confidentiality of Alcohol and Drug Abuse Patient Records regulations: The Federal rules restrict any use of the information to criminally investigate or prosecute any alcohol or drug abuse patient.[facility] HospitalIn the event this information is protected by the Federal Confidentiality of Alcohol and Drug Abuse Patient Records regulations: The Federal rules restrict any use of the information to criminally investigate or prosecute any alcohol or drug abuse patient.[facility] HospitalIn the event this information is protected by the Federal Confidentiality of Alcohol and Drug Abuse Patient Records regulations: The Federal rules restrict any use of the information to criminally investigate or prosecute any alcohol or drug abuse patient.[facility] HospitalIn the event this information is protected by the Federal Confidentiality of Alcohol and Drug Abuse Patient Records regulations: The Federal rules restrict any use of the information to criminally investigate or prosecute any alcohol or drug abuse patient.[facility] HospitalIn the event this information is protected by the Federal Confidentiality of Alcohol and Drug Abuse Patient Records regulations: The Federal rules restrict any use of the information to criminally investigate or prosecute any alcohol or drug abuse patient.[facility] HospitalIn the event this information is protected by the Federal Confidentiality of Alcohol and Drug Abuse Patient Records regulations: The Federal rules restrict any use of the information to criminally investigate or prosecute any alcohol or drug abuse patient.[facility] HospitalIn the event this information is protected by the Federal Confidentiality of Alcohol and Drug Abuse Patient Records regulations: The Federal rules restrict any use of the information to criminally investigate or prosecute any alcohol or drug abuse patient.[facility] HospitalIn the event this information is protected by the Federal Confidentiality of Alcohol and Drug Abuse Patient Records regulations: The Federal rules restrict any use of the information to criminally investigate or prosecute any alcohol or drug abuse patient.[facility] HospitalIn the event this information is protected by the Federal Confidentiality of Alcohol and Drug Abuse Patient Records regulations: The Federal rules restrict any use of the information to criminally investigate or prosecute any alcohol or drug abuse patient.[facility] HospitalIn the event this information is protected by the Federal Confidentiality of Alcohol and Drug Abuse Patient Records regulations: The Federal rules restrict any use of the information to criminally investigate or prosecute any alcohol or drug abuse patient.[facility] HospitalIn the event this information is protected by the Federal Confidentiality of Alcohol and Drug Abuse Patient Records regulations: The Federal rules restrict any use of the information to criminally investigate or prosecute any alcohol or drug abuse patient.[facility] HospitalIn the event this information is protected by the Federal Confidentiality of Alcohol and Drug Abuse Patient Records regulations: The Federal rules restrict any use of the information to criminally investigate or prosecute any alcohol or drug abuse patient.[facility] HospitalIn the event this information is protected by the Federal Confidentiality of Alcohol and Drug Abuse Patient Records regulations: The Federal rules restrict any use of the information to criminally investigate or prosecute any alcohol or drug abuse patient.[facility] HospitalIn the event this information is protected by the Federal Confidentiality of Alcohol and Drug Abuse Patient Records regulations: The Federal rules restrict any use of the information to criminally investigate or prosecute any alcohol or drug abuse patient.[facility] HospitalIn the event this information is protected by the Federal Confidentiality of Alcohol and Drug Abuse Patient Records regulations: The Federal rules restrict any use of the information to criminally investigate or prosecute any alcohol or drug abuse patient.[facility] HospitalIn the event this information is protected by the Federal Confidentiality of Alcohol and Drug Abuse Patient Records regulations: The Federal rules restrict any use of the information to criminally investigate or prosecute any alcohol or drug abuse patient.[facility] HospitalIn the event this information is protected by the Federal Confidentiality of Alcohol and Drug Abuse Patient Records regulations: The Federal rules restrict any use of the information to criminally investigate or prosecute any alcohol or drug abuse patient.[facility] HospitalIn the event this information is protected by the Federal Confidentiality of Alcohol and Drug Abuse Patient Records regulations: The Federal rules restrict any use of the information to criminally investigate or prosecute any alcohol or drug abuse patient.[facility] Care Teams (unrecognized sec tion and content) Product Marketing Intern Relationship Specialty Start Date End Date Yuska, Jessica K, practical nurseHair Dryer 04/11/22 1 Product Marketing Intern Relationship Specialty Start Date End Date Jessica Henry practical nurseHair Dryer 04/11/22 1 Product Marketing Intern Relationship Specialty Start Date End Date Jessica Henry, practical nurseHair Dryer 04/11/22 1 Product Marketing Intern Relationship Specialty Start Date End Date Jessica Henry, practical nurseHair Dryer 04/11/22 1 Product Marketing Intern Relationship Specialty Start Date End Date Jessica Henry, practical nurseHair Dryer 04/11/22 1 Product Marketing Intern Relationship Specialty Start Date End Date Jessica Henry, practical nurseHair Dryer 04/11/22 1 Product Marketing Intern Relationship Specialty Start Date End Date Jessica Henry practical nurseHair Dryer 04/11/22 1 Product Marketing Intern Relationship Specialty Start Date End Date Jessica Henry practical nurseHair Dryer 04/11/22 1 Product Marketing Intern Relationship Specialty Start Date End Date Jessica Henry practical nurseHair Dryer 04/11/22 1 Product Marketing Intern Relationship Specialty Start Date End Date Jessica Henry, practical nurseHair Dryer 04/11/22 1 Team Status: Active Member Role Status Dates Dr. Magui Marquez MD Family Provider Active No Primary Care Physician Primary Care Provider Active Team Status: Inactive Member Role Status Dates No Primary Care Physician Primary Care Provider Active Dr. Ashu Fields DO Attending Provider, Emergency P goldy Active Team Status: Inactive Member Role Status Dates No Primary Care Physician Primary Care Provider Active Dr. Casi Das MD Attending Provider, R eferring Provider Active Team Status: Inactive Member Role Status Dates No Primary Care Physician Primary Care Provider Active Dr. Byron Rico DO Emergency Provider Active Team Status: Inactive Member Role Status Dates No Primary Care Physician Primary Care Provider Active Dr. Robert Delatorre MD Emergency Provider Active Team Status: Inactive Member Role Status Dates No Primary Care Physician Primary Care Provider Active Dr. Robert Delatorre MD Attending Provider, Emergency Provi erlinda Active Team Status: Inactive Member Role Status Dates No Primary Care Physician Primary Care Provider Active Dr. Ashu Fields DO Emergency Provider Active Team Status: Inactive Member Role Status Dates No Primary Care Physician Primary Care Provider Active Dr. Shima Welsh MD Emergency Provider Active Goals (unrecognized section and content) Goals may be documented in a n alternate sectionGoals may be documented in an alternate sectionGoals may be documented in an alternate sectionGoals may be documented in an alternate section FOR RECORDS PERTAINING TO PATIENTS WHO ARE OR HAVE BEEN ENROLLED IN A CHEMICAL DEPENDENCY/SUBSTANCEABUSE PROGRAM, SOME INFORMATION MAY BE OMITTED. This clinical summary was aggregated from multiple sources. Caution should be exercised in using it in the provision of clinical care. This summary normalizes information from multiple sources, and as a consequence, information in this document may materially change the coding, format and clinical context of patient data. In addition, data may be omitted in some cases. CLINICAL DECISIONS SHOULD BE BASED ON THE PRIMARY CLINICAL RECORDS. [employer] provides no warranty or guarantee of the accuracy or completeness of information in this document.
[2025-01-31 13:59] LABS: Anion Gap 12 (5-15); BUN 9 mg/dL (4-19); BUN/Creat Ratio 10.6 RATIO (10-20); Calcium,Total 9.4 mg/dL (7.6-11.0); Carbon Dioxide 24.2 mmol/L (21.0-32.0); Chloride 106 mmol/L (98-108); EST Glomerular Filtration Rate 105 (>60); Glucose 111 mg/dL (70-99); Potassium 3.6 mmol/L (3.3-5.1); Sodium Level 142 mmol/L (133-145)
[2025-01-31 15:08] VITALS: BP 132/81; PULSE 76; RESP 16; O2SAT 99
--- NOTE | 2025-01-31 15:25 | EDS_ITS ---
HPI History of Present Illness Chief Complaint: Chest Pain Detail of Chief Complaint: Right-sided chest pain that radiated towards neck Informant: patient Onset/Context/Timing Onset: Today and Hours Activity at onset: sudden and light activity Timing: Continuous Quality: Positive for Aching Location: Right Chest Current Severity: Mild Maximum Severity: Moderate Worsened By: Movement of Arm, Movement of Torso, Palpation and Breathing; Not Worsened By Exertion, Eating or Coughing Relieved By: Nothing Associated Symptoms: Positive for Dyspnea (Feels like she cannot take a complete breath.); Negative for Nausea, Vomiting, Diaphoresis, Cough, Fever, Lightheadedness, Acid Reflux or Palpitations Narrative Narrative: Patient is a 24-year-old G3, P3 female whose last normal menstrual period was 2 weeks ago presents with right-sided chest pain that radiates to her neck and lasted longer than normal. She has had this in the past but this is lasted much longer. Movement does make it worse. Palpation does make it worse. Breathing makes it worse. She states she is very anxious. She has no history of VTE. Denies leg pain, swelling discoloration. Not on hormonal therapy. She states she has not had any to eat or drink since last evening. She denies fever, chills night sweats. Denies rhinorrhea, postnasal drainage or sore throat. She denies cough. She denies abdominal pain, nausea, vomiting or diarrhea. She denies skin lesions. She denies trauma. Prior Similar Symptoms: Yes and - (Never sought medical attention) Recent Illness/Hospitalization: No CVD Risk Factors: Negative for Hypertension, Diabetes, Hypercholesterolemia, Family History 1' </=55 or Smoking PE Risk Factors: Negative for Recent Travel/Surgery, Recent Immobilization, Prior DVT or PE, Cancer or OCP + Smoking + >/=35 TAD Risk Factors: Negative for Marfan's Syndrome, Hypertension or Family History PFSH PFSH Medical History Non-smoker Home Medications ?Medication ?Instructions ?Recorded ?Last Taken ?Type naproxen 500 mg tablet 500 mg PO BID #14 tabs 01/31 Unknown Rx Allergy/AdvReac Type Severity Reaction Status Date / Time amoxicillin Allergy Rash Verified 01/31/25 13:09 Penicillins Allergy Rash Verified 01/31/25 13:09 vancomycin Allergy Rash Verified 01/31/25 13:09 metoclopramide (From Reglan) AdvReac Other Verified 01/31/25 13:09 Surgical History History of tubal ligation History of laparoscopic cholecystectomy Social History Smoking Status: Never smoker substance use type: does not use ROS ROS ED Constitutional Constitutional ED: Denies chills, fever(s), subjective, sweats or weight loss Eyes Eyes: Reports none ENT ENT ED: Denies ear pain, rhinorrhea or sore throat Cardiovascular Cardiovascular: Reports as per HPI; Denies orthopnea or paroxysmal nocturnal dyspnea Respiratory/Chest Respiratory/Chest: Denies cough, dyspnea on exertion, orthopnea, paroxysmal nocturnal dyspnea or sputum Gastrointestinal Gastrointestinal: Denies abdominal pain, nausea or vomiting Musculoskeletal Musculoskeletal: Denies arthralgias, back pain, myalgias or neck pain Integumentary Denies rash Neurologic Neurologic: Denies paresthesias or weakness Endocrine Endocrinology: Denies cold intolerance or heat intolerance Hematologic/Lymphatic Hematologic/Lymphatic: Denies easy bleeding or easy bruising EXAM Physical Exam Const Vital Signs: 01/31/25 13:09 01/31/25 13:15 01/31/25 15:08 Temperature 97.8 F Temperature Source Oral Pulse Rate 127 H 76 Respiratory Rate 16 16 Respiratory Effort Normal Non-Labored Blood Pressure 136/87 H 132/81 H Blood Pressure Mean 103 98 Pulse Ox 99 99 Oxygen Delivery Method Room Air Room Air Positive well nourished and well developed Constitutional Narrative: BMI is 48.4. General Appearance ED: well developed HEENT Reports TM's clear and moist mucous membranes HEENT Narrative: Posterior pharynx is normal. normocephalic and atraumatic Tympanic Membrane ED: Yes TM's clear Eyes PERRL and EOMs intact bilaterally Neck no lymphadenopathy, supple and no JVD Chest Wall inspection of chest normal and palpation of chest normal Chest Narrative: Patient has reproducible anterior chest pain. Resp normal respiratory effort and clear to auscultation bilaterally Cardio regular rhythm, S1 normal heart sound, S2 normal heart sound and no murmurs Rate: tachycardic GI normal to inspection, nondistended, normoactive bowel sounds, soft to palpation, non-tender, non-distended and no masses; Negative for hepatosplenomegaly Back/Spine no CVA tenderness and no thoracic nor lumbar tenderness Extremity normal to inspection General Extremety ED: Yes edema and pulses abnormal General Extremity: edema and pulses abnormal Neuro oriented x3, CN's II-XII intact bilaterally, no sensory deficits noted and gait normal Sensorium / Orientation: awake and alert Psych mental status grossly normal Skin no rashes or lesions noted and no wounds Heart Score History: Slightly/Non-Suspicious ECG: Normal Age: </= 45 years Risk Factors: No Risk Factors Score: 0 MDM MDM MDM Narrative Medical decision making narrative: Patient with muscular chest pain. Technically patient is not PERC negative. She is anxious. When she was not anxious she was not tachycardic and was PERC negative. Wells score is less than 3. Will obtain chest x-ray to see if there is a right upper lobe pneumonia. Will obtain CBC to assess for anemia BMP to assess for any electrolyte abnormality or kidney dysfunction. And if her tachycardia does not improve with fluids will obtain D-dimer since she is low probability. History & Record Review Additional record(s) reviewed:: Prior ED visit (Seen for pericoronitis June 2024. Dental pain and October 2023. April 2023 for acute bronchitis with bronchospasm.) and Prior labs Lab Data Attestation: I reviewed the patient's lab results. Lab results narrative: White count slightly elevated. There is no shift. BMP is remarkable slight elevation of glucose 111. Labs: Laboratory Results - last 24 hr 01/31/25 13:25 WBC 11.1 H RBC 4.69 Hgb 13.6 Hct 40.1 MCV 85.5 MCH 29.0 MCHC 33.9 RDW Std Deviation 38.9 RDW Coeff of Patricio 12.7 Plt Count 262 MPV 10.7 Immature Gran % (Auto) 0.400 Neut % (Auto) 61.9 Lymph % (Auto) 30.0 Sevier % (Auto) 6.0 Eos % (Auto) 1.3 Baso % (Auto) 0.4 Absolute Neuts (auto) 6.9 Absolute Lymphs (auto) 3.34 Nucleated RBC % 0 Sodium 142 Potassium 3.6 Chloride 106 Carbon Dioxide 24.2 Anion Gap 12 BUN 9 Creatinine 0.80 Estim Creat Clear Calc 128.60 Est GFR (MDRD) Non-Af 105 BUN/Creatinine Ratio 10.6 Glucose 111 H Calcium 9.4 Radiography Chest X-Ray - ED: 2 View, Read by ED Physician, Normal, Heart, Lungs, Mediastinum, Bony Structures and No Acute Disease Diagnostic Testing: Clinical Impression(s) from Imaging Studies Chest X-Ray 01/31/25 13:25 IMPRESSION: No acute process detected. Reading Location: [facility] EKG Initial EKG: Attestation: I personally reviewed and interpreted this EKG as follows: Interpretation: Sinus Rhythm (Rate is 97. EKG is normal. IL interval is on 52 ms. QRS duration 88 ms. QT duration 150 ms. Mitchell is normal.) Treatment and Re-Evaluation :: When patient was reassessed at 1510. Her heart rate was 67. She still has some slight discomfort right chest. Will discharge with prescription for NSAIDs and she has no contraindication. Discharge Plan Triage Chief Complaint: Chest Pain ED Provider: Robert Delatorre Dx/Rx/DC Orders Clinical Impression: Acute right-sided thoracic back pain, Sickle cell trait, Elevated blood- pressure reading without diagnosis of hypertension, Tachycardia, Dehydration, mild, Adult BMI 45.0-49.9 kg/sq m Instructions: ED Chest Pain, Noncardiac, ED Hypertension, To Be Confirmed Prescriptions: New naproxen 500 mg tablet 500 mg PO BID Qty: 14 0RF Primary Care Provider: Care Physician,No Primary Referrals: Lelia Jones DO [Med Staff - [employer]] - 1-2 Weeks Care Physician,No Primary [Primary Care Provider] - Activity Restrictions/Additional Instructions: You are referred to Dr. Jones and do not have a physician listed. You need to have your blood pressure rechecked in 1 to 2 weeks. Print Language: Bahraini Disposition Disposition: Home, Self Care
[2025-01-31 15:45] VITALS: BP 129/80; PULSE 72; RESP 12; TEMP 36.9; O2SAT 99
== END 2025-01-31 15:49 | disposition home or self-care (01) ==
PROVIDERS: Emergency Provider Emergency Medicine; Visit Provider Emergency Medicine
DX: M54.6 Pain in thoracic spine (principal); R07.89 Other chest pain; R03.0 Elevated blood-pressure reading, without diagnosis of hypertension; D57.3 Sickle-cell trait; R00.0 Tachycardia, unspecified; R06.00 Dyspnea, unspecified; E86.0 Dehydration
CPT/HCPCS: 71046; 80048; 85025; 93005; 96360; 99284; A4216